=== PATIENT | male | born 1940 | race Caucasian/White ===

== ENCOUNTER → 2024-09-02 12:09 | Outpatient (REF) | payer MEDICARE, SELFPAY | LOC: RAD 12:09 | PROVIDERS: ATTENDING PHYSICIAN Family Medicine | DX: M25.561 Pain in right knee (principal); M25.562 Pain in left knee; G89.29 Other chronic pain; M25.551 Pain in right hip; M25.552 Pain in left hip | CPT/HCPCS: 72100; 73523; 73565 ==

== ENCOUNTER → 2024-09-26 09:08 | Outpatient (REF) | payer MEDICARE, SELFPAY ==
[2024-09-26 10:47] LABS: Erythrocyte Sed Rate 94 mm/hour (0-20)
[2024-09-26 10:50] LABS: ALT (SGPT) 22 U/L (0-50); AST (SGOT) 35 U/L (17-59); Albumin 2.3 g/dl (3.5-5.0); Alkaline Phosphatase 184 U/L (38-126); Blood Urea Nitrogen 24 mg/dl (9-20); Calcium 7.9 mg/dl (8.4-10.2); Carbon Dioxide 29 mmol/L (22-30); Chloride 104 mmol/L (98-107); Glucose 103 mg/dl (70-99); Potassium 4.5 mmol/L (3.5-5.1); Sodium 139 mmol/L (135-145); Total Bilirubin 0.2 mg/dl (0.2-1.3); Total Protein 5.6 g/dl (6.3-8.2); eGFR 54.85
== END ==
LOC: REG 09:08
PROVIDERS: ATTENDING PHYSICIAN Orthopaedic Surgery; FAMILY PHYSICIAN Family Medicine
DX: M35.3 Polymyalgia rheumatica (principal)
CPT/HCPCS: 36415; 80053; 85652

== ENCOUNTER → 2024-10-07 09:09 | Outpatient (REF) | payer MEDICARE, SELFPAY | LOC: HWRAD 09:09 | PROVIDERS: ATTENDING PHYSICIAN Specialist; FAMILY PHYSICIAN Family Medicine | DX: I67.9 Cerebrovascular disease, unspecified (principal); I67.89 Other cerebrovascular disease; R06.02 Shortness of breath | CPT/HCPCS: 71046; 93880 ==

== ENCOUNTER → 2024-10-10 07:37 | Outpatient (REF) | payer MEDICARE, SELFPAY | LOC: RAD 07:37 | PROVIDERS: ATTENDING PHYSICIAN Family Medicine | DX: R09.89 Other specified symptoms and signs involving the circulatory and respiratory systems (principal) | CPT/HCPCS: 93925 ==

== ENCOUNTER → 2024-10-21 14:35 | Outpatient (REF) | payer MEDICARE, SELFPAY | LOC: RCS 14:35 | PROVIDERS: ATTENDING PHYSICIAN Internal Medicine Critical Care Medicine | DX: R06.02 Shortness of breath (principal) | CPT/HCPCS: 93306 ==

== ENCOUNTER 2024-10-31 13:06 | Inpatient (IN) | payer MEDICARE, SELFPAY ==
[2024-10-31] VITALS (12 sets, daily range): BP systolic 120–174; BP diastolic 63–95; BMI 31.1
[2024-10-31 11:18] LABS: % Basophils 0.5 % (0-2); % Eosinophils 6.5 % (0-6); % Immature Granulocytes 0.4 % (0-0.5); % Lymphocytes 18.4 % (20.5-51.1); % Monocytes 9.7 % (1.7-9.3); % Neutrophils 64.5 % (42.2-75.2); Absolute Basophils 0.1 10^3/uL (0-0.2); Absolute Eosinophils 0.6 10^3/uL (0-0.7); Absolute Lymphocytes 1.8 10^3/uL (1.2-3.4); Absolute Monocytes 0.9 10^3/uL (0.1-0.6); Absolute Neutrophils 6.2 10^3/uL (1.4-6.5); Hematocrit 35.6 % (39.0-52.0); Hemoglobin 11.4 g/dL (13.0-18.0); Mean Corpuscular Hgb 25.8 pg (27.0-31.0); Mean Corpuscular Volume 80.5 fL (80.0-94.0); Mean Platelet Volume 8.9 fL (7.4-10.4); Nucleated Red Blood Cells % 0 % (-); Platelet Count 304 10^3/uL (130-400); Red Blood Cell Count 4.42 10^6/uL (4.70-6.10); Red Cell Dist. Width 15.9 % (11.5-14.5); White Blood Cell Count 9.7 10^3/uL (4.8-10.8)
[2024-10-31 11:31] LABS: ALT (SGPT) 17 U/L (0-50); AST (SGOT) 33 U/L (17-59); Albumin 1.9 g/dl (3.5-5.0); Alkaline Phosphatase 138 U/L (38-126); Blood Urea Nitrogen 31 mg/dl (9-20); Calcium 7.6 mg/dl (8.4-10.2); Carbon Dioxide 27 mmol/L (22-30); Chloride 106 mmol/L (98-107); Glucose 141 mg/dl (70-99); Potassium 3.6 mmol/L (3.5-5.1); Sodium 137 mmol/L (135-145); Total Bilirubin 0.1 mg/dl (0.2-1.3); Total Protein 5.1 g/dl (6.3-8.2); eGFR 54.85
[2024-10-31 11:44] LABS: NT-proBNP 4650 pg/ml
--- NOTE | 2024-10-31 11:45 | ED.GENMED ---
History of Present Illness
General
Chief Complaint: Breathing Problem
Source: patient
Exam Limitations: none
Time Seen by Provider: 10/31/24 11:39
History of Present Illness
History of Present Illness:
See MDM
Past History
Past History
ED Past Medical History: CHF and HTN
ED Past Surgical History: None
Social History
Tobacco: Non-smoker
Alcohol: None
Phy Exam
Physical Exam
Physical Exam:
See MDM
Scores
Heart Failure Risk
Heart Failure Risk Score: Yes
History of Stroke or TIA: No
History of intubation for respiratory distress: No
Heart rate on ED arrival >/= 110: No
SaO2 <90% on arrival on room air: Yes
HR >/=110 during 3min walk test (or too ill to perform test): Yes
ECG has acute ischemic changes: No
Urea >/=12mmol/L (BUN 33.6mg/dL): No
Serum CO2>/=35mmol/L: No
Troponin I or T elevated to AR Level (0.4mg/dL): No
NT-proBNP >/=5,000ng/L (5,000pg/ml): No
HF Risk Score: 3
Admission Status: HIGH RISK 15.9% Consider SNF treatment or admission to hospital
Course
Orders/Labs/Results
Orders:
Orders
10/31/24 10:53
Electrocardiogram (*1) Urgent
Reason for Study: Shortness of Breath
10/31/24 10:54
EKG- Treatment ONCE
10/31/24 11:08
Complete Blood Count/With Diff Urgent
Comprehensive Metabolic Panel Urgent
NT-proBNP Urgent
Troponin I Urgent
10/31/24 11:43
Furosemide [Lasix] 40 mg IV NOW STA
CR Chest Portable - 1 View Urgent
Comment:
Reason For Exam: SOB
Reason Study Needs to be Portable: Patient Unstable
Abnormal Lab Results
10/31/24
11:08
RBC 4.42 L 10^6/uL
(4.70-6.10)
Hgb 11.4 L g/dL
(13.0-18.0)
Hct 35.6 L %
(39.0-52.0)
MCH 25.8 L pg
(27.0-31.0)
MCHC 32.0 L g/dL
(33.0-37.0)
RDW 15.9 H %
(11.5-14.5)
Absolute Monos (auto) 0.9 H 10^3/uL
(0.1-0.6)
Lymphocytes % 18.4 L %
(20.5-51.1)
Monocytes % 9.7 H %
(1.7-9.3)
Eosinophils % 6.5 H %
(0-6)
BUN 31 H mg/dl
(9-20)
Glucose 141 H mg/dl
(70-99)
Calcium 7.6 L mg/dl
(8.4-10.2)
Total Bilirubin 0.1 L mg/dl
(0.2-1.3)
Alkaline Phosphatase 138 H U/L
(38-126)
Total Protein 5.1 L g/dl
(6.3-8.2)
Albumin 1.9 L g/dl
(3.5-5.0)
10/31/24 11:08
10/31/24 11:08
Vital Signs
Initial and Last Documented VS:
Initial Vital Signs
Temp Pulse Resp BP Pulse Ox
97.4 F 72 16 159/75 92
10/31/24 10:54 10/31/24 10:54 10/31/24 10:54 10/31/24 10:54 10/31/24 10:54
Last Documented Vital Signs
Temp Pulse Resp BP Pulse Ox
97.4 F 71 32 165/78 94
10/31/24 10:54 10/31/24 11:30 10/31/24 11:30 10/31/24 11:25 10/31/24 11:30
MDM/Problems Addressed
Differential Diagnosis Includes:
HPI and MDM Narrative:
84-year-old male presenting for evaluation of worsening shortness of breath for the past several weeks. He actually had an outpatient chest x-ray which I evaluated and shows pulmonary edema. Because he was on hydrochlorothiazide, Lasix was not
started. Patient now more short of breath and his legs are more swollen. On exam, patient is uncomfortable and tachypneic. He is poor air exchange and requiring supplemental oxygen. Both legs are edematous. Will start IV Lasix and admit
Physical exam
General: Comfortable, conversational dyspnea
HEENT: protecting airway
Neck: appears supple
CV: No evidence of cyanosis. Regular rate and rhythm
Resp: No accessory muscle use. Crackles at bases
Abd: Non-distended
Extremities: No deformities
Neuro: alert
Psych: Normal affect
Skin: Intact
Problems Addressed including Acute and Chronic Conditions affecting care:
1. Pulmonary edema
Acuity: acute
Prognosis: unstable
Details: Will start IV Lasix and admit. Given his significant dyspnea and hypoxia, patient given dose of nitroglycerin as well
Differential Diagnosis (but not limited to): Pulm edema, pneumonia, atelectasis
Testing considered: D-dimer
Drug therapy (if applicable): OTC meds, please see d/c instruction regarding Rx drugs
Amount and/or Complexity of Data Reviewed
Clinical info obtained from: Patient
External data reviewed: Chest x-ray performed few weeks ago shows pulmonary edema
Labs I independently reviewed (but not limited to): Elevated BNP
Radiology: X-ray independently reviewed: Chest x-ray shows pulm edema
Pulse Ox: hypoxic
EKG independently reviewed: Sinus rhythm, normal axis, no STEMI
Glass Ribbon Machine Operator Assistant: Sinus rhythm
Critical Care: The high probability of a clinically significant, sudden or life threatening deterioration of the cardiopulmonary system(s) required my full and direct attention, intervention and personal management. The aggregate critical care time
was 33 minutes. This time is in addition to time spent performing reported procedures but includes the following:
[x] Data Review and interpretation
[x] Patient assessment and monitoring of vital signs
[x] Documentation
[x] Medication orders and management
Risk of Complication:
Social Determinants of health: Good social support
Discussed with other providers: Hospitalist
Escalation of Care includes Admit/Obs: Given the pulmonary edema and hypoxia, will continue IV Lasix and admit
Occasional wrong word or 'sound a like' substitutions may have occurred due to the inherent limitations of voice recognition software. Read the chart carefully and recognize, using context, where substitutions have occurred.
*Critical Care Note
Total Time (30-74mins, 75-104mins- exclusive of procedures): 33 min
ED Attending Note
-
Portions of this chart may have been created with voice recognition software.� Occasional wrong word or��sound alike� substitutions may have occurred due to the inherent limitations of voice recognition software.
Discharge Plan
Departure
Patient Disposition: Admit
Date of Disposition: 10/31/24
Time of Disposition: 11:54
Admit to: Telemetry
Presentation/result/management discussed w/ accepting MD/DO: Hospitalist
Discharge Problem:
Pulmonary edema, Hypoxia
Referrals:
Abad Chung Jr., DO [Family Provider] -
Interventions
Interventions:
*Risk Screen - Suicide Last Done: 10/31/24 10:58
*General Assessment Last Done: 10/31/24 11:30
*Neglect/Abuse Screening Last Done: 10/31/24 10:58
ED- Fall Risk Assessment Last Done: 10/31/24 11:30
*ED COVID-19 Vaccine History Last Done: 10/31/24 10:58
ED- Cardiac Assessment Last Done: 10/31/24 11:30
ED- Pulmonary Assessment Last Done: 10/31/24 11:30
Discharge Date and Time
Print Language: KHMER
[2024-10-31] MEDS: LASIX 40 MG IV ×2 (11:54→16:39)
[2024-10-31] MEDS: NITROSTAT (SUBLINGUAL) 0.4 MG SL (11:56)
--- NOTE | 2024-10-31 11:56 | HPS.HSE ---
Family Physician
-
Family Physician: Abad Chung
Chief Complaint
-
Shortness of breath for 1 week
History of Present Illness
84 years old male came from home. Patient presented to the ER with shortness of breath. Started slowly but progress over the last week. He had visited pulmonary doctor Dr. Larson recently and had multiple tests in the office. No history of
hypoxia although the patient was not sure of what the test showing but seems he was diagnosed with COPD. He quit smoking many years ago. He was not on home oxygen. His bilateral lower extremities were noticeably swollen and red. He was giving a
course of antibiotic and some ointment but did not help. Patient reported very mild cough and no sputum. No fever or chills. No chest pains
Medical History
Past Medical History
Past Medical History: Reports Other (COPD, hypertension,)
Past Surgical History: Reports Other (No recent major surgery)
Social History
Tobacco: Former Smoker
Alcohol: Occasional
Drug: None
Personal:
Living: With Family
Employment: Retired
Family History
Family History: Other (His father had stroke & history of fluid in the lungs)
Allergies / Home Medications
Allergies reflects when Allergies were last updated in [employer].
Home Medications with original date entered in [employer]
Allergy/Medication List:
Allergies
Allergy/AdvReac Type Severity Reaction Status Date / Time
No Known Allergies Allergy Unverified 10/31/24 10:59
Home Medications
amlodipine 5 mg tablet (Norvasc) 5 mg PO DAILY 10/31/24
atenolol 25 mg tablet 25 mg PO DAILY 10/31/24
carboxymethylcellulose 0.5 %-glycerin 0.9 % eye drops (Refresh Optive) 1 drp BOTH EYES TID 10/31/24
cilostazol 100 mg tablet 100 mg PO BID 10/31/24
fluticasone fur. 100 mcg-umeclid 62.5 mcg-vilant 25 mcg inhalat.powder (Trelegy Ellipta) 1 inh inhalation R DAILY 10/31/24
omeprazole 20 mg tablet,delayed release 20 mg PO DAILY 10/31/24
sertraline 25 mg tablet 25 mg PO HS 10/31/24
valsartan 320 mg-hydrochlorothiazide 12.5 mg tablet 1 tab PO DAILY 10/31/24
Review of Systems
-
History Source: Patient
A 12 point ROS was completed and negative except as noted: Yes
Constitutional: Denies Fever or Chills
EENT: Denies Sore Throat
Respiratory: Reports Trouble Breathing
Cardiac: Denies Chest Pain
Abdomen/GI: Denies Abdominal Pain
: Denies Dysuria or Difficulty Voiding
Musculoskeletal: Reports Edema; Denies Joint Pain
Skin: Denies Rash
Neurological: Denies Numbness
Endocrine: Denies Temp Intolerance
Hematologic/Lymphatic: Denies Bruising
Psych: Denies Panic Disorder
Physical Exam
Vital Signs
Vital Signs
Temp Pulse Resp BP Pulse Ox
97.4 F 71 32 165/78 94
10/31/24 10:54 10/31/24 11:30 10/31/24 11:30 10/31/24 11:25 10/31/24 11:30
Physical Exam
General: Conversant and Appears in Distress
HEENT: Moist mucous membranes and Atraumatic
Respiratory: Rales and Decreased Breath Sounds
Cardiac: S1/S2
GI: Soft, Non Tender and Non Distended
Rectal: No Maroon Stools
Genito-urinary: No costovertebral tender
Musculoskeletal: No Cyanosis, Edema, Left Lower Extremity and Edema, Right Lower Extremity
Skin: Warm; No Jaundice
Neuro: AO x 3 and Nonfocal/grossly intact
Psych: Calm and Intact Judgment/Insight
Laboratory Results
-
10/31/24 11:08
10/31/24 11:08
Laboratory Results
Total Bilirubin 0.1 mg/dl (0.2-1.3) L 10/31/24 11:08
AST 33 U/L (17-59) 10/31/24 11:08
ALT 17 U/L (0-50) 10/31/24 11:08
Alkaline Phosphatase 138 U/L (38-126) H 10/31/24 11:08
Troponin I 0.020 ng/ml 10/31/24 11:08
Impression/Plan
-
84 years old male presented with progressive shortness of breath
#Acute respiratory distress//acute hypoxic respiratory failure. Patient presented with SaO2 83% on room air with respiratory distress, shortness of breath and tachypnea
Differential diagnoses include acute on chronic heart failure with preserved ejection fraction, underlying interstitial lung disease/COPD
Elevated proBNP. Negative troponin. EKG normal sinus rhythm with nonspecific T wave abnormality
Admit the patient to the hospital
Start the patient on oxygen therapy, currently patient on 5 to 6 L, possible will need high flow oxygen.
Start the patient on IV diuretic therapy
Monitor renal function, daily weight, input and output chart,
Electrolyte level
Check hemoglobin A1c.
Continue with blood pressure medication but might need to cut back to advance further diuretic therapy and to avoid hypotension if needed
Recent echocardiogram in October 2024 showed LVEF 60 to 65% with diastolic heart dysfunction, moderate mitral regurgitation, mild TR, estimated pulmonary artery pressure of 52 mmHg. Mild concentric LVH.
# History of COPD. Quit smoking many years ago. History of occupational exposure to dust/smoke
Per records, moderate to severe COPD with possible underlying restrictive disease.
Primary battery assembler plastic Dr. Larson.
No significant wheezes heard on exam. No history of significant cough or productive sputum.
Will continue with nebulizer therapy.
Eventual home O2 evaluation
Will discuss with pulmonary doctor.
# Primary hypertension. Patient takes amlodipine, atenolol, Diovan and hydrochlorothiazide.
Currently started on high-dose IV furosemide. Will adjust his home medications as needed and as blood pressure tolerates
# Bilateral lower extremity stasis dermatitis. Consistent with peripheral edema. Will treat with diuretic therapy and monitor weight and progression.
# DVT prophylaxis
Total time spent to see the patient, examine the patient, review data and lab results, discuss the treatment plan with patient, ER doctor, nursing staff around 75 minutes
--- NOTE | 2024-10-31 13:43 | CON.CAR ---
Addendum entered and electronically signed by Tu Herrera MD 10/31/24 15:57:
I saw and examined the patient.
The Physics And Astronomy Professor's note was reviewed and I agree with the note.
Comment:
GEN: No distress, awake, Ox3
HEENT: supple, anicteric, mmm
LUNGS: dec bs at bases
CV: Reg, S1/S2, / syst LSB, S3+
ABD: soft, BS+, NT/ND
EXT: ++ edema
NEURO: Gross non-focal
SKIN: Bilateral erythema lower extremities.
Plan:
84-year-old male with past medical history of hypertension, hyperlipidemia and COPD who presents with progressive edema, shortness of breath, weight gain, and abdominal bloating over the past month. He presented to [facility] with
progressive shortness of breath was found to be in new onset acute heart failure with preserved ejection fraction. proBNP was elevated 4600. He denies any chest pains or palpitations. He does follow with pulmonary for some level of COPD.
I reviewed his recent echo which has a preserved ejection fraction, moderate MR and elevated PA pressures and stage III diastolic dysfunction.
Agree with IV diuresis with IV Lasix.. 40 mg IV twice daily. Follow creatinine.
His blood pressure is elevated. Would continue Diovan, and add carvedilol. We will follow his blood pressure closely. He may need Aldactone as well. With his severe edema I would hold his amlodipine. His legs have marked erythema. Would
consider antibiotics.
Will assess cost for SLG 2 inhibitor.
Hemoglobin 11.4. Check iron studies.
He also has marked hypoalbuminemia.
He will need an eventual Lexiscan nuclear stress test.
Original Note:
Consultation
Consultation Request
Date/Time Consultation Performed: 10/31/24
Requesting Provider: Dr. Pimentel
Performing Provider: Martha Burgos PA-C for Dr. Herrera
Reason for Consultation: CHF
Medical History
-
Chief Complaint: LE edema, SOB
History of Present Illness:
Patient is an 84-year-old male with past medical history of hypertension, hyperlipidemia, GERD, recent diagnosis COPD with former smoking who presents to [facility] emergency room for evaluation of worsening lower extremity edema over the
last several weeks. Also reports dyspnea on exertion with any activity, weight gain, abdominal bloating, orthopnea. Not on supplemental oxygen as an outpatient, however presently requiring 4 L. Was seen by primary care physician, however there
was hesitancy about switching his HCTZ to Lasix as an outpatient. Recent echocardiogram with preserved EF, stage III diastolic dysfunction. With significant edema to waist level. Bilateral lower extremities with significant erythema and some
oozing. Family reports chills but no fevers. proBNP 4650. CXR with evidence of acute CHF. Cardiology consulted for evaluation. no CP.
PMH:
HTN
HLD
GERD
COPD
Hernia
Past Medical History
Past Medical History: Other (in HPI)
Social History
Tobacco: Former Smoker
Personal:
Living: With Family
Employment: Retired
Family History
Family History: Cancer and Other (brain aneurysm, CVA in brothers)
Allergies / Home Medications
Allergy/AdvReac Type Severity Reaction Status Date / Time
No Known Allergies Allergy Unverified 10/31/24 10:59
�Medication �Instructions �Recorded �Confirmed �Type
amlodipine 5 mg tablet (Norvasc) 5 mg PO DAILY 10/31/24 10/31/24 History
atenolol 25 mg tablet 25 mg PO DAILY 10/31/24 10/31/24 History
carboxymethylcellulose 0.5 1 drp BOTH EYES TID 10/31/24 10/31/24 History
%-glycerin 0.9 % eye drops
(Refresh Optive)
cilostazol 100 mg tablet 100 mg PO BID 10/31/24 10/31/24 History
fluticasone fur. 100 mcg-umeclid 1 inh inhalation R DAILY 10/31/24 10/31/24 History
62.5 mcg-vilant 25 mcg
inhalat.powder (Trelegy Ellipta)
omeprazole 20 mg tablet,delayed 20 mg PO DAILY 10/31/24 10/31/24 History
release
sertraline 25 mg tablet 25 mg PO HS 10/31/24 10/31/24 History
valsartan 320 1 tab PO DAILY 10/31/24 10/31/24 History
mg-hydrochlorothiazide 12.5 mg
tablet
Review of Systems
-
History Source: Patient and Family
All other systems: Negative unless noted
Physical Exam
Vital Signs
Temp Pulse Resp BP Pulse Ox
97.4 F 74 26 162/77 97
10/31/24 10:54 10/31/24 13:30 10/31/24 13:30 10/31/24 13:00 10/31/24 13:30
Lab Results
10/31/24 11:08
10/31/24 11:08
Troponin I 0.020 ng/ml 10/31/24 11:08
Utb-B-Fzvvymbfvuy Pept 4650 pg/ml 10/31/24 11:08
Physical Exam
General: No Apparent Distress, Comfortable and Other (on supp O2)
HEENT: Normocephalic, Anicteric and Moist Mucous Membranes
Respiratory: Crackles and Non Labored Respirations
Cardiac: S1/S2 and Regular Rhythm
GI: Soft, Non Tender, Normal Bowel Sounds and Distended
Musculoskeletal: No Clubbing, No Cyanosis and Edema (4+ to level of waist)
Skin: Warm, Dry and Other (erythema of B/L LE to level of knee with blisters, scabs)
Neuro: AO x 3
Impression / Plan
-
Primary Information Systems Technician: none prior to admission, scheduled to see Dr. Elizondo 11/12/24
Assessment:
Presentation with weight gain, LE edema, MUNOZ
Acute HFpEF
Moderate MR
CKD
PAD, abnormal L IVAN, mod to severe claudication
HTN
HLD
GERD
COPD
Hernia
Anemia
Hypoalbuminemia
ECHO 10/21/24: EF 60 to 65%, mild concentric LVH, stage III diastolic dysfunction, moderately dilated atria, mild MAC, moderate MR, mild TR, PAP 52 mmHg, ascending aorta top normal at 3.7 cm
Plan:
-Patient presents with worsening weight gain, lower extremity edema, abdominal bloating, dyspnea on exertion over the last month or so. On HCTZ as an outpatient.
-proBNP 4650. X-ray with evidence of acute CHF
-Legs with significant edema to level of waist bilaterally, erythema of bilateral legs to knees with some scabbing and blisters. Consult wound care. He has noted to have left lower extremity PAD by extremity arterial study earlier this month, and
is planning to see vascular
-Recent echocardiogram with results as above
-Will hold OP HCTZ and placed on IV Lasix 40 mg twice daily. Follow creatinine with diuresis, 1.3 on 10/31
-CHF education
-troponin 0.02. No chest pain. EKG sinus rhythm with NSSTS, no clear acute ischemic abnormalities
-Consider stopping outpatient Norvasc. As outpatient on atenolol 25 mg daily and valsartan as combo pill with HCTZ. Possible poorly controlled hypertension as etiology of heart failure as EF preserved. Consider transitioning atenolol to Coreg for
improved BP control
-Wean supplemental oxygen as able, presently on 4 L nasal cannula
-Noted to be anemic. Will check iron studies in the setting of CHF and consider iron repletion.
-Also with hypoalbuminemia. Consider giving albumin
-Discussed with ER physician. Discussed with patient and family at bedside.
Data Reviewed
-
EKG: Tracing Personally Visualized and interpreted
Radiology: Report Reviewed by me
Medical Tests (Nuc Med, Echo etc): Report Reviewed by me
Labs: Labs Reviewed by me
Old Records: Reviewed
--- NOTE | 2024-10-31 15:18 | CON.PUL ---
Consultation
Consultation Request
Date/Time Consultation Requested: 10/31/2024
Date/Time Consultation Performed: 10/31/2024
Requesting Provider: Dr. Bunn
Performing Provider: Dr. Edwar Rendon
Reason for Consultation: Exertional dyspnea/acute hypoxemic respiratory failure
Medical History
-
History of Present Illness:
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
shortness of breath. Shortness of breath has been worsening slowly over the last week. He was seen by our office recently. He was told that he has COPD. He was noted to have lower extremity swelling and also erythematous. Reports a mild cough
without significant sputum production or hemoptysis. Denies fevers or chills.
He was found to be hypoxemic, chest x-ray suggestive of mild pulmonary edema with possible bilateral pleural effusions.
-
We were consulted for evaluation on 10/31/2024.
-
[facility] records reviewed. Seen in our office 10/18/[address] Larson-for shortness of breath as a new patient. At that time lowest saturation was 90%. No oxygen requirements.
Spirometry showed moderate to severe airflow obstruction with a restrictive defect.
Initially interstitial lung disease was suspected but echocardiogram results demonstrated valvular disease, stage III diastolic dysfunction with increased filling pressures and he was referred to cardiology.
Serology for ILD was also sent.
He was started on Trelegy as a trial as well.
-
Past Medical History
Past Medical History: HTN
Social History
Tobacco: Former Smoker ([id number] history quit in the )
Alcohol: Occasional
Drug: None
Personal:
Living: With Family
Employment: Retired
Family History
Family History: Reviewed & Not Pertinent
Allergies / Home Medications
Allergies
Allergy/AdvReac Type Severity Reaction Status Date / Time
No Known Allergies Allergy Unverified 10/31/24 10:59
Home Medications
�Medication �Instructions �Recorded �Confirmed �Last Taken �Type
amlodipine 5 mg tablet (Norvasc) 5 mg PO DAILY 10/31/24 10/31/24 10/30/24 History
atenolol 25 mg tablet 25 mg PO DAILY 10/31/24 10/31/24 10/30/24 History
carboxymethylcellulose 0.5 1 drp BOTH EYES TID 10/31/24 10/31/24 10/30/24 History
%-glycerin 0.9 % eye drops
(Refresh Optive)
cilostazol 100 mg tablet 100 mg PO BID 10/31/24 10/31/24 10/30/24 History
fluticasone fur. 100 mcg-umeclid 1 inh inhalation R DAILY 10/31/24 10/31/24 10/30/24 History
62.5 mcg-vilant 25 mcg
inhalat.powder (Trelegy Ellipta)
omeprazole 20 mg tablet,delayed 20 mg PO DAILY 10/31/24 10/31/24 10/31/24 History
release
sertraline 25 mg tablet 25 mg PO HS 10/31/24 10/31/24 10/30/24 History
valsartan 320 1 tab PO DAILY 10/31/24 10/31/24 10/31/24 History
mg-hydrochlorothiazide 12.5 mg
tablet
Review of Systems
-
History Source: Patient
All other systems: Negative unless noted
Vitals / Labs / Diagnostic Testing
Vital Signs
Temp Pulse Resp BP Pulse Ox
97.4 F 72 21 156/74 95
10/31/24 10:54 10/31/24 14:45 10/31/24 14:45 10/31/24 14:00 10/31/24 14:45
Lab Data
10/31/24 11:08
10/31/24 11:08
Diagnostic Testing:
Physical Exam
-
HEENT: Normocephalic
Cardiovascular: S1/S2 and Peripheral Edema (3+ bilaterally-stasis dermatitis)
Respiratory: Wheeze (n), Rales (bases) and Non-Labored Respirations
GI: Soft and Non Distended
Neurology: Awake, AO x 3 and No Motor Deficits
Skin: Warm
General: Comfortable
Assessment
-
84-year-old man with past medical history noted, admitted with progressive shortness of breath. Found to be hypoxemic which is new for him. Abnormal chest x-ray suggestive of heart failure. Also recently diagnosed with COPD and he is a former
smoker. We were consulted on 10/31/2024 for evaluation.
Acute hypoxemic respiratory failure pulse ox 83% on room air-progressive shortness of breath. Requiring 3-5 L supplemental oxygen new for him
Suggest suspect mainly driven by t acute heart failure with preserved ejection fraction -proBNP 4650.
Chest x-ray10/31/2024: Minimal bilateral pleural effusions, significant pulmonary vascular congestion.
Negative troponin
Echocardiogram 10/21/2024: Normal LVEF. No regional wall motion abnormality. Mild LVH. Stage III diastolic dysfunction, increased filling pressures. Normal RV size and function. Moderately dilated atrium. Moderate MR. Mild TR. Pulmonary
artery pressure 52 mmHg. No pericardial effusion.
Bilateral lower extremity Edema with stasis dermatitis
Conditions present prior admission:
COPD
Hypertension
Former smoker quit in [id number]-year history
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
Left lower extremity peripheral arterial disease by recent duplex ultrasound
Assessment and plan:
Clinical picture suggest acute onset pulmonary edema, recently seen in the pulmonary office with crackles, lower extremity swelling, echocardiogram was performed and demonstrated diastolic dysfunction with increased filling pressures.
At that time on mid October no oxygen requirements.
-
Symptoms mainly driven by pulmonary vascular congestion from heart failure with preserved ejection fraction-echocardiogram was noted to have suggestion of increased filling pressures-proBNP significantly elevated
I agree with IV diuresis
Cardiology has been consulted, optimizing cardiac management
Low-sodium
Heart failure education
-
Moderate to severe COPD by spirometry: Former smoker quit many years ago. Not on exacerbation.
Recently placed on Trelegy by Dr. Larson-not significantly bronchospastic: Okay to use DuoNebs [id number]
Hold inhalers systemic corticosteroids
No indication for antibiotics.
-
Continue oxygen supplementation hopefully will improve with diuresis
-
There was concern for possible underlying interstitial lung disease in the outpatient setting.
If there is no complete clearance after proper diuresis then a CT of the chest will be recommended.
-
Lower extremity edema with stasis dermatitis
Check UA to rule out proteinuria
Patient is hypovolemic unclear reasons-defer to primary team.
-
DVT prophylaxis heparin subcu.
-
Will continue to follow.
--- NOTE | 2024-10-31 16:00 | WOUNDNOTE ---
WO RN note: Patient admitted with SOB, worsening over the last week.
See H&P for complete history.
PMH: COPD
Wound Location and type/assessment: Patient admitted with venous stasis changes and venous stasis dermatitis appearing skin to bilateral LE. + palpable pulse +2 LE edema. Skin on LE is very dry. Patient reports some draining from blisters when at
home. No draining or open wound noted at time of assessment. Patient also recently saw meter setter for rash on back and thighs and was given steroid cream for both back and legs. Patient reports the steroid cream did not help improve symptoms. He
reports some itching on his lower legs but denies itching on back. He does not use compression at home. Heels and sacrum are intact.
Appetite: States fair appetite
Pressure redistribution devices in place: Versa Care Air, able to turn self in bed.
Plan: Will try Hydrophor to dry LE. Patient does not feel like he can tolerate compression at this time but would be agreeable when symptoms improve. TT Dr. Bunn with update and spoke to Lesley PATINO.
Updated care plan and will follow as needed.
Note to case management of equipment requested for discharge:
Recommend follow up at wound care center upon discharge.
[2024-10-31 16:14] LABS: Iron 29 ug/dl (49-181)
[2024-10-31 16:24] LABS: Percent Saturation 16 % (20-50); Total Iron Binding Capacity 173 ug/dl (261-462)
[2024-10-31] MEDS: DUONEB 3 ML INH ×2 (16:28→19:20)
--- NOTE | 2024-10-31 16:35 | WOUNDNOTE ---
POSTERIOR VIEW OF LOWER LEGS AND THIGHS
--- NOTE | 2024-10-31 16:36 | WOUNDNOTE ---
BILATERAL LOWER LEG ANTERIOR VIEW
[2024-10-31] MEDS: HYDROPHOR 1 APPLIC TOPICAL (17:17)
[2024-10-31 17:42] LABS: Urine Albumin 2+ (Neg - Trace); Urine Bilirubin Negative (Negative); Urine Character Clear (Clear); Urine Color Straw; Urine Glucose Negative (Negative); Urine Ketone Negative (Negative); Urine Leukocyte Negative (Negative); Urine Nitrite Negative (Negative); Urine Occult Blood 3+ (Negative); Urine Urobilinogen Negative (Neg - 1+)
[2024-10-31 17:48] LABS: Urine Squamous Cell 0-2 /LPF (Few)
[2024-10-31 17:49] LABS: Urine White Cell 0-2 /HPF (0-5)
[2024-10-31 17:50] LABS: Urine Bacteria Few (Negative)
[2024-10-31 17:51] LABS: Urine Yeast Few (Negative)
[2024-10-31] MEDS: HEPARIN 5000 UNITS SC (21:27)
[2024-10-31] MEDS: ZOLOFT 25 MG PO (21:27)
[2024-10-31] MEDS: COREG 6.25 MG PO (21:27)
[2024-10-31] MEDS: PLETAL 100 MG PO (21:27)
[2024-11-01] VITALS (10 sets, daily range): BP systolic 133–172; BP diastolic 69–85; PULSE 75–82; O2SAT 90–91; BMI 28.9
--- NOTE | 2024-11-01 04:45 | PTCARENOTE ---
Addendum entered by Elmo Lundy RN 11/01/24 05:24:
BP at time of IV Lasix admin is 148/69, HR 75.
Original Note:
MARGOT Sandoval notified that patient is having difficulty breathing, RR are 24, and he is 93% on 5L NC. MARGOT Sandoval ordered 1x IV Lasix 40mg now as well as PRN DuoNeb.
[2024-11-01] MEDS: LASIX 40 MG IV ×2 (04:49→17:52)
[2024-11-01] MEDS: DUONEB 3 ML INH ×5 (05:00→19:27)
--- NOTE | 2024-11-01 05:31 | W.PN.UPDATE ---
Update Note
Progress Note Update
c/o hard time breathing at 0430. up to 5 L NC. RR 24. Added duoneb and lasix 40 mg IV with relief.
--- NOTE | 2024-11-01 08:20 | W.PN.CARDCBS ---
Addendum entered and electronically signed by Kae Benitez DO 11/01/24 13:05:
I saw and examined the patient.
The Economics Faculty Member's note was reviewed and I agree with the note.
Comment: Patient seen and examined with at bedside. Overnight events reviewed. Early this morning had worsening respiratory distress and increased O2 requirements that is now improved with DuoNeb and additional Lasix. CT of the chest
reviewed with patient and family. No chest pain or pressure. believes leg edema looks better since admission.
GEN: Sitting out of bed to chair with nasal cannula O2 and DuoNeb. AAO x 3
HEENT: mmm
LUNGS: Bronchovesicular breath sounds with crackles bilaterally
CV: Reg, S1/S2, 2/6 SM
EXT: +++ Lower extremity bilateral edema with erythema serous filled cyst, scabs and oozing
NEURO: Gross non-focal
ECHO 10/21/24: EF 60 to 65%, mild concentric LVH, stage III diastolic dysfunction, moderately dilated atria, mild MAC, moderate MR, mild TR, PAP 52 mmHg, ascending aorta top normal at 3.[address] of the chest without contrast 11/01/2024: Small bilateral pleural effusions. Reticular interstitial thickening bilaterally and extensive groundglass opacity bilaterally most pronounced at lung bases and within the right upper lobe. Mild
coronary artery calcification. Multiple calcified mediastinal and hilar lymph nodes.
Carotid duplex 10/07/2024: Plaque identified in the right ICA with 50 to 69% stenosis. Plaque identified in the left ICA with less than 50% stenosis
Lower extremity arterial duplex 10/10/2024: Right ankle-brachial index and toe brachial index within the normal range at 1.09 and 0.91. No signs of significant right-sided inflow disease or focal flow-limiting arterial stenosis. Left ankle-brachial
index in the moderate to severe claudication range at 0.67. Left toe brachial index is slightly diminished at 0.66. Left common femoral waveform is biphasic, but dampened. There is diffuse dampening of the left lower extremity waveforms without
high-grade focal stenosis, findings most consistent with inflow disease.
Twelve-lead EKG 10/31/2024: Normal sinus rhythm with sinus arrhythmia and nonspecific T wave abnormality.
Plan:
Acute hypoxic respiratory failure and volume overload consistent with heart failure preserved ejection fraction
-2D echocardiogram with preserved LV systolic function with grade 3 diastolic dysfunction and moderate mitral regurgitation. Estimated pulmonary artery pressure is 52 mmHg.
-Initial proBNP 4650
-Negative troponin
-Continue diuresis efforts with Lasix 40 mg IV twice daily
-Monitor I's/O's, daily weights.
-Monitor lab work including renal function and electrolytes. Keep K greater than 4, mag greater than 2
-Better blood pressure control; continue valsartan but reduce dose to 160 mg daily. Add hydralazine with goal of eventual discontinuation of amlodipine given edema. Continue carvedilol started this admission and lieu of outpatient atenolol.
Outpatient hydrochlorothiazide discontinued
-Case management consulted for cost of SGLT2 inhibitor
-Heart failure education including dietary salt/fluid restriction-consult placed
-Outpatient ischemic evaluation
COPD with prior tobacco dependence and possible ILD/pulmonary hypertension on echo
-CT of the chest this morning reviewed with patient and family members.
-Pulmonary consulted with outpatient follow-up to be arranged
-Recommend outpatient sleep study
Renal insufficiency with creatinine 1.3-1.4
-Monitor with diuresis
-+2 noted on UA
-He has an outpatient nephrology appointment November [address] Pedro
Known PAD/carotid artery disease with recent carotid duplex and lower extremity arterial duplex this month as an outpatient
-Recommend outpatient vascular follow-up
-Aggressive risk factor reduction
-Continue outpatient Pletal.
-Check lipid profile; not on statin as an outpatient with no reported allergy
Type 2 diabetes mellitus with hemoglobin A1c 6.5%, new diagnosis
-Defer to medical service
-Case management consulted to look into SGLT2 inhibitor
-Goal normoglycemia
-Will have CM assess cost of SGLT2 inhibitor.
Leg wounds/venous stasis changes�wound care has been consulted
Updated family over the phone. Will follow with you.
Original Note:
Today's Communication / Plan
-
Continue diuresis w/ IV lasix 40mg BID
Follow creat
Start hydralazine for BP control.
Decrease valsartan to 160mg daily
Restart Coreg this PM.
Impression / Plan
-
Primary Family Day Carer: none prior to admission, scheduled to see Dr. Elizondo 11/12/24
Assessment:
Presentation with weight gain, LE edema, MUNOZ
Acute HFpEF
Moderate MR
CKD
PAD, abnormal L IVAN, mod to severe claudication
HTN
HLD
GERD
COPD
Hernia
Anemia
Hypoalbuminemia
ECHO 10/21/24: EF 60 to 65%, mild concentric LVH, stage III diastolic dysfunction, moderately dilated atria, mild MAC, moderate MR, mild TR, PAP 52 mmHg, ascending aorta top normal at 3.7 cm
Plan:
-Presented with worsening weight gain, LE edema, and MUNOZ. Admitted with acute HFpEF. ProBNP 4650. On HCTZ as OP.
-Had increased WOB overnight. Given duoneb and additional 40mg IV lasix at 0430.
-Diuresing with IV lasix 40mg BID. Weight down to 184lbs 11/01. Weight in ER 198 lbs if accurate.
-Continue to follow daily weights, I&Os. Creat 1.4 11/01. Still significantly volume overloaded.
-CHF education.
-Echo 10/21 with preserved EF and moderate MR as noted above.
-Wound care consulted for LE edema with scabbing and blisters. Noted to have LE PAD by extremity arterial study earlier this month.
-BP elevated on admission. Atenolol transitioned to carvedilol 6.25mg BID. Dose held this AM due to concern for wheezing. Will resume this PM.
-Needs better BP control. Amlodipine restarted in AM 11/01, however is not ideal medication w/ edema. Will start hydralazine w/ goal of d/c amlodipine.
-Valsartan held this AM w/ creat 1.4. Will restart at lower dose to allow for diuresis.
-Will have CM assess cost of SGLT2 inhibtior.
-Wean O2 as able. Currently on 4L NC
Progress Note - Family Day Carer
Subjective
Date of Service: November 01, 2024
Continues w/ some SOB and LE edema
Objective
Labs:
10/31/24 11:08
Labs
Hgb 11.4 g/dL (13.0-18.0) L 10/31/24 11:08
Hct 35.6 % (39.0-52.0) L 10/31/24 11:08
Plt Count 304 10^3/uL (130-400) 10/31/24 11:08
Sodium 137 mmol/L (135-145) 10/31/24 11:08
Potassium 3.6 mmol/L (3.5-5.1) 10/31/24 11:08
BUN 31 mg/dl (9-20) H 10/31/24 11:08
Creatinine 1.3 mg/dL (0.7-1.3) 10/31/24 11:08
Glucose 141 mg/dl (70-99) H 10/31/24 11:08
Troponins
10/31/24
11:08
Troponin I 0.020
Vital Signs and I&O:
Vital Signs
Temp Pulse Resp BP Pulse Ox
97.5 F 77 18 148/69 99
11/01/24 03:04 11/01/24 07:32 11/01/24 07:32 11/01/24 04:49 11/01/24 07:32
Vital Signs
Temp Pulse Resp BP Pulse Ox
97.5 F 77 18 148/69 99
11/01/24 03:04 11/01/24 07:32 11/01/24 07:32 11/01/24 04:49 11/01/24 07:32
Intake & Output
10/30/24 10/31/24 11/01/24 11/02/24
06:59 06:59 06:59 06:59
Intake Total 480 / 480 240 / 240
Output Total 1925 / 1925
Balance -1445 / -1445 240 / 240
Physical Exam
Physical Exam
GEN: No distress, awake, alert, oriented x3
HEENT: supple, anicteric, mmm
LUNGS: crackles b/l, no wheezes
CV: Reg, S1/S2, no murmur
EXT: No clubbing, ro cyanosis. +2 edema b/l LE
NEURO: Gross non-focal
SKIN: Warm, dry. Erythema of b/l LE to knees w/ blisters, scabs
[2024-11-01] MEDS: PULMICORT 0.5 MG INH ×2 (08:23→19:27)
--- NOTE | 2024-11-01 08:36 | WOUNDNOTE ---
WO RN note: Patient admitted with SOB, worsening over the last week.
See H&P for complete history.
PMH: COPD
Wound Location and type/assessment: Patient admitted with venous stasis changes and venous stasis dermatitis appearing skin to bilateral LE. + palpable pulse +2 LE edema. Skin on LE is very dry. Patient reports some draining from blisters when at
home. No draining or open wound noted at time of assessment. Patient also recently saw superintendent building for rash on back and thighs and was given steroid cream for both back and legs. Patient reports the steroid cream did not help improve symptoms. He
reports some itching on his lower legs but denies itching on back. He does not use compression at home. Heels and sacrum are intact.
Appetite: States fair appetite
Pressure redistribution devices in place: Versa Care Air, able to turn self in bed.
Plan: Will try Hydrophor to dry LE. Patient does not feel like he can tolerate compression at this time but would be agreeable when symptoms improve. TT Dr. Bunn with update and spoke to Lesley PATINO.
Updated care plan and will follow as needed.
Note to case management of equipment requested for discharge:
Recommend follow up at wound care center upon discharge.
[2024-11-01 09:06] LABS: Blood Urea Nitrogen 31 mg/dl (9-20); Calcium 7.6 mg/dl (8.4-10.2); Carbon Dioxide 32 mmol/L (22-30); Chloride 105 mmol/L (98-107); Estimated Creatinine Clearance 38 ml/min; Glucose 93 mg/dl (70-99); Sodium 138 mmol/L (135-145); eGFR 50.18
[2024-11-01 09:13] LABS: Potassium 3.7 mmol/L (3.5-5.1)
--- NOTE | 2024-11-01 09:56 | W.PN.HOSP.TC ---
Today's Communication/Plan
-
Worsening breathing status
Holding Coreg for possible bronchospasm ( less likely) , starting Steroid therapy and Pulmicort
Order CT chest due to X ray findings
Hold AM Lasix as pt received an extra dose earlier today
Check procalcitonin
Hold Diovan due to rising creatinine
Resume amlodipine
Add PRN Hydralazine
Assessment / Plan
Assessment / Plan
Physical Exam
General: Conversant and Appears in Distress
HEENT: Moist mucous membranes and Atraumatic
Respiratory: Rales and Decreased Breath Sounds
Cardiac: S1/S2
GI: Soft, Non Tender and Non Distended
Rectal: No Maroon Stools
Genito-urinary: No costovertebral tender
Musculoskeletal: No Cyanosis, Edema, Left Lower Extremity and Edema, Right Lower Extremity
Skin: Warm; No Jaundice
Neuro: AO x 3 and Nonfocal/grossly intact
Psych: Calm and Intact Judgment/Insight
84 years old male presented with progressive shortness of breath
#Acute respiratory distress//acute hypoxic respiratory failure. Due to Acute on chronic heart failure with preserved ejection fraction + COPD exacerbation
c/w IV Lasix but hold AM dose as he received one over night
He lost weight
Coreg was added but hold for now until lung wheezes start to subside
Continue with blood pressure medication but might need to cut back to advance further diuretic therapy and to avoid hypotension if needed
Recent echocardiogram in October 2024 showed LVEF 60 to 65% with diastolic heart dysfunction, moderate mitral regurgitation, mild TR, estimated pulmonary artery pressure of 52 mmHg. Mild concentric LVH.
Appreciate cardiology input
# Acute COPD exacerbation
Possibly triggered by heart failure event or ? side effect from new medicine Coreg although he was on Atenolol at home
Will do IV Methylprednisone 40 mg BID
Add INH Pulmicort
c/w Duo Neb QID
repeat chest x ray : Concerning, will do CT chest
Check Procalcitonin ( no fever, no leukocytosis on admission). Check CBC today
Hx of moderate to severe COPD
Primary family member caretaker Dr. Larson.
Appreciate pulmonary help
# Primary hypertension. Patient takes amlodipine, atenolol, Diovan and hydrochlorothiazide.
Uncontrolled Systolic BP this morning
Currently started on high-dose IV furosemide. c/w Amlodipine
Hold Diovan due to rising creatinine
Add PRN hydralazine
# Bilateral lower extremity stasis dermatitis. Consistent with peripheral edema. Treat underlying edema
# Acute kidney injury , suspect underlying CKD stage IIIA
We do not have baseline in last few months. Creatinine was 1.3 in September 2024.
# DVT prophylaxis
Total time spent to see the patient, examine the patient, review data and lab results, discuss the treatment plan with patient, consultants, nursing staff around 55 minutes
Anticipated Discharge: > 48 hours
Subjective/Interval History
-
Date of Service: November 01, 2024
feels sob
no chest pain
Objective Data
-
Labs:
Laboratory Results
11/01/24
08:14
Sodium 138
Potassium 3.7
Chloride 105
Carbon Dioxide 32 H
BUN 31 H
Creatinine 1.4 H
Glucose 93
Calcium 7.6 L
Vital Signs:
Vital Signs
Temp Pulse Resp BP Pulse Ox
97.7 F 74 24 172/85 94
11/01/24 07:30 11/01/24 08:26 11/01/24 08:26 11/01/24 07:30 11/01/24 08:26
I&O
10/31/24 11/01/24 11/02/24
06:59 06:59 06:59
Intake Total 480 / 480 240 / 240
Output Total 1925 / 1925
Balance -1445 / -1445 240 / 240
[2024-11-01] MEDS: COREG PO (10:31)
[2024-11-01] MEDS: HEPARIN 5000 UNITS SC ×2 (10:32→21:41)
[2024-11-01] MEDS: LASIX IV (10:35)
[2024-11-01] MEDS: PROTONIX 40 MG PO (10:36)
[2024-11-01] MEDS: SOLU-MEDROL PF 40 MG IV ×2 (10:36→21:45)
[2024-11-01] MEDS: PLETAL 100 MG PO ×2 (10:36→21:41)
[2024-11-01] MEDS: NORVASC 5 MG PO (10:37)
[2024-11-01 10:48] LABS: Hemoglobin 10.9 g/dL (13.0-18.0); Mean Corp Hgb Conc. 31.1 g/dL (33.0-37.0); Mean Corpuscular Hgb 25.8 pg (27.0-31.0); Mean Corpuscular Volume 82.7 fL (80.0-94.0); Mean Platelet Volume 9.4 fL (7.4-10.4); Platelet Count 279 10^3/uL (130-400); Red Blood Cell Count 4.23 10^6/uL (4.70-6.10); Red Cell Dist. Width 15.9 % (11.5-14.5); White Blood Cell Count 8.7 10^3/uL (4.8-10.8)
[2024-11-01 10:49] LABS: Glycohemoglobin (HgbA1c) 6.5 % (4.0-5.6)
--- NOTE | 2024-11-01 10:49 | CM ---
Addendum entered by Holly Moore 11/01/24 15:55:
CM received consult for cost of Jardiance/Farxiga 10 mg once daily. Patient seen bedside with , reports he is unsure what prescription plan he has- daughter will be in to visit patient and will provide information. CM offered to call daughter,
patient reports daughter is working and will not be able to respond. Call placed to patients pharmacy to obtain prescription plan information, left VM.
Original Note:
CM reviewed chart, patient seen bedside with and two sons, initial assessment completed. Patient resides with his in a private home, first floor set up, two steps to enter. Patient does not use any DME for ambulation, currently on oxygen,
is not on home O2. Patient denies VN or SNF history. Patient confirms PCP Abad Denise, pharmacy [facility], confirms prescription coverage. Patient denies insecurities at home, reports he has good support from his family. CM
will continue to follow for all discharge planning needs, will watch for PT needs and home O2 needs.
Plan; home with family, watch for VN needs, home O2 needs.
[2024-11-01 11:23] LABS: Procalcitonin 0.12 ng/ml (0.0-0.25)
[2024-11-01 13:31] LABS: HDL Cholesterol 28 mg/dl; LDL Cholesterol, Calculated 113 mg/dl; Total Cholesterol 166 mg/dl (50-199); Triglyceride 125 mg/dl (10-149); Very Low Density Lipoprotein 25 mg/dl (0-30)
[2024-11-01] MEDS: DIOVAN 160 MG PO (14:13)
[2024-11-01] MEDS: APRESOLINE 25 MG PO ×2 (14:14→21:41)
[2024-11-01] MEDS: HYDROPHOR 1 APPLIC TOPICAL (14:15)
--- NOTE | 2024-11-01 14:40 | W.PN.PUL3 ---
Today's Communication / Plan
-
IV corticosteroids started 11/01/2024
Pulmicort/DuoNebs continue while in the hospital
IV diuresis
Follow electrolytes and creatinine.
Oxygen supplementation currently on 5 L
Eventual repeat imaging to rule out interstitial lung disease/pulmonary fibrosis.
Assessment
-
84-year-old man with past medical history noted, admitted with progressive shortness of breath. Found to be hypoxemic which is new for him. Abnormal chest x-ray suggestive of heart failure. Also recently diagnosed with COPD and he is a former
smoker. We were consulted on 10/31/2024 for evaluation.
Acute hypoxemic respiratory failure pulse ox 83% on room air-progressive shortness of breath. Requiring 3-5 L supplemental oxygen new for him
Suggest suspect mainly driven by t acute heart failure with preserved ejection fraction -proBNP 4650.
Chest x-ray10/31/2024: Minimal bilateral pleural effusions, significant pulmonary vascular congestion.
Negative troponin
Echocardiogram 10/21/2024: Normal LVEF. No regional wall motion abnormality. Mild LVH. Stage III diastolic dysfunction, increased filling pressures. Normal RV size and function. Moderately dilated atrium. Moderate MR. Mild TR. Pulmonary
artery pressure 52 mmHg. No pericardial effusion.
Bilateral lower extremity Edema with stasis dermatitis
Conditions present prior admission:
COPD
Hypertension
Former smoker quit in [id number]-year history
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
Left lower extremity peripheral arterial disease by recent duplex ultrasound
Assessment and plan:
Clinical picture suggest acute onset pulmonary edema, recently seen in the pulmonary office with crackles, lower extremity swelling, echocardiogram was performed and demonstrated diastolic dysfunction with increased filling pressures.
At that time on mid October no oxygen requirements.
Earlier in the morning 11/01/2024: Increase shortness of breath and also bronchospastic.
Discussed with Dr. Bunn -diuresis given, steroids started.
-
Symptoms mainly driven by pulmonary vascular congestion from heart failure with preserved ejection fraction-echocardiogram was noted to have suggestion of increased filling pressures-proBNP significantly elevated
CT chest 11/01/2024: Reviewed small bilateral pleural effusions, increased bilateral reticular interstitial thickening with patchy groundglass opacity. Suspect heart failure but cannot rule out underlying interstitial lung disease such as pulmonary
fibrosis/IPF.
Continue IV diuresis-creatinine is rising.
Discussed with cardiology: Been optimized from the cardiac perspective.
Heart failure education
-
Moderate to severe COPD by spirometry: Former smoker quit many years ago. Not on exacerbation.
Recently placed on Trelegy by Dr. Larson-not significantly bronchospastic on admission. Restarted inhalers upon discharge.
Continue DuoNebs [id number]
Pulmicort started 11/01/2024 Solu-Medrol started
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 Unclear whether an acute exacerbation versus cardiac wheezing.
No indication for antibiotics.
-
Continue oxygen supplementation hopefully will improve with diuresis.
Currently wearing 5 L
-
There was concern for possible underlying interstitial lung disease in the outpatient setting.
CT chest as above noted. Will repeat once he is able to diuresis in the future. In about 6 to 8 weeks.
-
Lower extremity edema with stasis dermatitis
Patient does have hyperammonemia as well as proteinuria on UA.
Defer to primary for further evaluation
-
DVT prophylaxis heparin subcu.
-
Will continue to follow.
-
Follow-up with Dr. Larson after DC.
Subjective Data
-
Date of Service:
Date of Service: November 01, 2024
Chief Complaint: Pulmonary Follow Up (Acute hypoxemic respiratory failure/COPD/heart failure)
Subjective:
This morning with acute episode of shortness of breath, received diuresis.
Denies hemoptysis
Denies purulent sputum production
Feels better now
Review of Systems
Cardiopulmonary: Dyspnea, Dyspnea on Exertion and Cough
GI: Abdominal Pain (n) and Nausea (n)
Objective Data
Data Reviewed
Vital Signs / I&O / Oxygen:
Vital Signs
Temp Pulse Resp BP Pulse Ox
97.3 F 71 24 171/84 97
11/01/24 11:30 11/01/24 14:13 11/01/24 11:33 11/01/24 14:13 11/01/24 11:33
Intake and Output
10/31/24 11/01/24 11/02/24
06:59 06:59 06:59
Intake Total 480 / 480 240 / 240
Output Total 1925 / 1925
Balance -1445 / -1445 240 / 240
SaO2 97
Nasal Cannula flow liters per 5
minute
Physical Exam
General: Comfortable
HEENT: Normocephalic
Cardiovascular: S1-S2 and Regular Rhythm
Respiratory: Wheeze (Forced expiratory) and Crackles
GI: Soft and Non Distended
Neurology: Awake, AO x 3 and No Motor Deficits
Skin: Warm and Other (Chronic lower extremity venous stasis)
Labs/Micro/Reports
Lab Data
11/01/24 10:23
11/01/24 08:14
[2024-11-01 18:08] LABS: Blood Urea Nitrogen 33 mg/dl (9-20); Calcium 7.6 mg/dl (8.4-10.2); Carbon Dioxide 30 mmol/L (22-30); Chloride 101 mmol/L (98-107); Estimated Creatinine Clearance 41 ml/min; Glucose 233 mg/dl (70-99); Magnesium 1.9 mg/dl (1.6-2.3); Potassium 3.8 mmol/L (3.5-5.1); Sodium 134 mmol/L (135-145); eGFR 54.85
--- NOTE | 2024-11-01 19:30 | PTCARENOTE ---
Pt had a 40 beat run of V'tach at around 17:30. Dr maria. Ordered labs which were drawn and sent.
[2024-11-01] MEDS: COREG 6.25 MG PO (21:41)
[2024-11-01] MEDS: ZOLOFT 25 MG PO (21:45)
[2024-11-02 03:00] VITALS: BP 137/69
[2024-11-02 05:26] LABS: Protein/creatinine Ratio 7.6; Urine Protein 489 mg/dl
[2024-11-02 06:00] VITALS: BMI 28.9
[2024-11-02 07:45] VITALS: BP 135/71
[2024-11-02] MEDS: PULMICORT 0.5 MG INH ×2 (07:59→20:07)
[2024-11-02] MEDS: DUONEB 3 ML INH ×4 (07:59→20:07)
--- NOTE | 2024-11-02 08:10 | W.PN.CARDCBS ---
Addendum entered and electronically signed by Genaro Cartwright MD 11/02/24 10:59:
Patient seen and examined
Agree with note and assessment
Agree with plan
Physical Exam
Telemetry reviewed with short runs of paroxysmal atrial tachycardia and then overall sinus rhythm
General: no apparent distress, not acutely ill
Neck: supple. no meningeal signs. normal psoterior pharynx
Heart: s1/s2 regular rate and rhythm, no murmur. equal radial pulses.
Lungs: no acute respiratory distress. clear bilaterally
Abdomen: normal bowel sounds. not tender. no CVAT
Neuro: alert and oriented. no focal neurological deficits
Skin: 1+ extremity edema to mid calf
Psychiatric: well kept. interactive and cooperative
Extremities: no edema. no calf tenderness. negative homans. good distal pulses
Assessment:
Presentation with weight gain, LE edema, MUNOZ
Acute HFpEF
Atrial tachycardia
Moderate MR
CKD
PAD, abnormal L IVAN, mod to severe claudication
HTN
HLD
GERD
COPD
Hernia
Anemia
Hypoalbuminemia
ECHO 10/21/24: EF 60 to 65%, mild concentric LVH, stage III diastolic dysfunction, moderately dilated atria, mild MAC, moderate MR, mild TR, PAP 52 mmHg, ascending aorta top normal at 3.7 cm
Plan:
-Diuresing with IV lasix 40mg BID. Weight unchanged overnight if accurate at 184lbs. Down from 198 lbs in ER on arrival. Still appears volume overloaded on exam and will follow daily creatinine but also continue with IV Lasix on 1227. We will see
what his 11/03 creatinine looks like and make decisions based upon his weight and clinical status whether we change to p.o.'s in the next 24 to 48 hours.
-Continue to follow daily weights, I&Os. Creat 1.4 11/01 and up to 1.5 11/02. Still volume overloaded, however will need to follow renal function closely.
-CHF education.
-Echo 10/21 with preserved EF and moderate MR as noted above.
-Wound care consulted for LE edema with scabbing and blisters. Noted to have LE PAD by extremity arterial study earlier this month.
-BP has been elevated. Atenolol transitioned to carvedilol 6.25mg BID. This will also be useful for his paroxysmal atrial tachycardia.
-Amlodipine restarted in AM 11/01, however is not ideal medication w/ edema. New to Hydralazine 25mg BID this admission.
-Continue valsartan at lower dose 160mg daily. Will have to keep a close eye in his creatinine.
-As able, would d/c amlodipine and increase coreg and/or hydralazine for better BP control.
-Will have CM assess cost of SGLT2 inhibitor.
-Reviewed telemetry and runs of atrial tachycardia noted. Continue to follow for now. Asymptomatic. No h/o atrial arrhythmia.
-Wean O2 as able.
Original Note:
Today's Communication / Plan
-
Continue diuresis
Await AM labs
Continue hydralazine, valsartan, and coreg for BP control
Follow on tele. May consider monitor at discharge
Impression / Plan
-
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 Elizondo 11/12/24
Assessment:
Presentation with weight gain, LE edema, MUNOZ
Acute HFpEF
Atrial tachycardia
Moderate MR
CKD
PAD, abnormal L IVAN, mod to severe claudication
HTN
HLD
GERD
COPD
Hernia
Anemia
Hypoalbuminemia
ECHO 10/21/24: EF 60 to 65%, mild concentric LVH, stage III diastolic dysfunction, moderately dilated atria, mild MAC, moderate MR, mild TR, PAP 52 mmHg, ascending aorta top normal at 3.7 cm
Plan:
-Presented with worsening weight gain, LE edema, and MUNOZ. Admitted with acute HFpEF. ProBNP 4650.
-Diuresing with IV lasix 40mg BID. Weight unchanged overnight if accurate at 184lbs. Down from 198 lbs in ER on arrival.
-Continue to follow daily weights, I&Os. Creat 1.4 11/01 and up to 1.5 11/02. Still volume overloaded, however will need to follow renal function closely.
-CHF education.
-Echo 10/21 with preserved EF and moderate MR as noted above.
-Wound care consulted for LE edema with scabbing and blisters. Noted to have LE PAD by extremity arterial study earlier this month.
-BP has been elevated. Atenolol transitioned to carvedilol 6.25mg BID.
-Amlodipine restarted in AM 11/01, however is not ideal medication w/ edema. New to Hydralazine 25mg BID this admission.
-Continue valsartan at lower dose 160mg daily.
-As able, would d/c amlodipine and increase coreg and/or hydralazine for better BP control.
-Will have CM assess cost of SGLT2 inhibitor.
-Reviewed telemetry and runs of atrial tachycardia noted. Continue to follow for now. Asymptomatic. No h/o atrial arrhythmia.
-Wean O2 as able.
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
Subjective
Date of Service: November 02, 2024
Reports breathing is improving.
Objective
Labs:
11/01/24 10:23
11/01/24 17:42
Labs
Hgb 10.9 g/dL (13.0-18.0) L 11/01/24 10:23
Hct 35.0 % (39.0-52.0) L 11/01/24 10:23
Plt Count 279 10^3/uL (130-400) 11/01/24 10:23
Sodium 134 mmol/L (135-145) L 11/01/24 17:42
Potassium 3.8 mmol/L (3.5-5.1) 11/01/24 17:42
BUN 33 mg/dl (9-20) H 11/01/24 17:42
Creatinine 1.3 mg/dL (0.7-1.3) 11/01/24 17:42
Glucose 233 mg/dl (70-99) H 11/01/24 17:42
Troponins
10/31/24
11:08
Troponin I 0.020
Vital Signs and I&O:
Vital Signs
Temp Pulse Resp BP Pulse Ox
97.9 F 73 18 137/69 98
11/02/24 03:00 11/02/24 08:02 11/02/24 08:02 11/02/24 03:00 11/02/24 08:02
Vital Signs
Temp Pulse Resp BP Pulse Ox
97.9 F 73 18 137/69 98
11/02/24 03:00 11/02/24 08:02 11/02/24 08:02 11/02/24 03:00 11/02/24 08:02
Intake & Output
10/31/24 11/01/24 11/02/24 11/03/24
06:59 06:59 06:59 06:59
Intake Total 480 / 480 1919
Output Total 1924 / 1924 1800 / 1800
Balance -1445 / -1445 120 / 120
Physical Exam
Physical Exam
GEN: No distress, awake, alert, oriented x3
HEENT: supple, anicteric, mmm
LUNGS: crackles and rhonchi b/l, no wheezes
CV: Reg, S1/S2, no murmur
EXT: No clubbing, ro cyanosis. +2 edema b/l LE
NEURO: Gross non-focal
SKIN: Warm, dry. Erythema of b/l LE to knees w/ blisters, scabs
[2024-11-02 09:00] LABS: Blood Urea Nitrogen 35 mg/dl (9-20); Calcium 7.7 mg/dl (8.4-10.2); Carbon Dioxide 33 mmol/L (22-30); Chloride 103 mmol/L (98-107); Estimated Creatinine Clearance 35 ml/min; Glucose 127 mg/dl (70-99); Potassium 4.1 mmol/L (3.5-5.1); Sodium 138 mmol/L (135-145); eGFR 46.19
[2024-11-02] MEDS: APRESOLINE 25 MG PO ×2 (09:58→19:50)
[2024-11-02] MEDS: SOLU-MEDROL PF 40 MG IV (09:59)
[2024-11-02] MEDS: NORVASC 5 MG PO (10:00)
[2024-11-02] MEDS: PROTONIX 40 MG PO (10:00)
[2024-11-02] MEDS: LASIX 40 MG IV ×2 (10:00→15:05)
[2024-11-02] MEDS: DIOVAN 160 MG PO (10:01)
[2024-11-02] MEDS: COREG 6.25 MG PO ×2 (10:01→19:51)
[2024-11-02] MEDS: PLETAL 100 MG PO ×2 (10:01→19:50)
[2024-11-02] MEDS: HEPARIN 5000 UNITS SC ×2 (10:02→19:50)
[2024-11-02] MEDS: HYDROPHOR 1 APPLIC TOPICAL (10:04)
--- NOTE | 2024-11-02 10:41 | W.PN.HOSP.TC ---
Today's Communication/Plan
-
c/w IV Steroid
Neb
Lasix
Monitor for urinary retention
Assessment / Plan
Assessment / Plan
Physical Exam
General: Conversant and Appears in Distress
HEENT: Moist mucous membranes and Atraumatic
Respiratory: Rales and Decreased Breath Sounds
Cardiac: S1/S2
GI: Soft, Non Tender and Non Distended
Rectal: No Maroon Stools
Genito-urinary: No costovertebral tender
Musculoskeletal: No Cyanosis, Edema, Left Lower Extremity and Edema, Right Lower Extremity
Skin: Warm; No Jaundice
Neuro: AO x 3 and Nonfocal/grossly intact
Psych: Calm and Intact Judgment/Insight
84 years old male presented with progressive shortness of breath
#Acute respiratory distress//acute hypoxic respiratory failure. Due to Acute on chronic heart failure with preserved ejection fraction + COPD exacerbation
Acute COPD exacerbation
CT chest seems c/w ILD/ Fibrosis or diffuse interstitial pneumonitis
Procalcitonin negative
c/w IV Lasix
c/w nebulizer
c/w IV Steroid
c/w Hydralazine
Coreg was added
Recent echocardiogram in October 2024 showed LVEF 60 to 65% with diastolic heart dysfunction, moderate mitral regurgitation, mild TR, estimated pulmonary artery pressure of 52 mmHg. Mild concentric LVH.
Appreciate pulmonary & cardiology input
# Primary hypertension. Patient takes amlodipine, atenolol, Diovan and hydrochlorothiazide.
Currently started on high-dose IV furosemide, Amlodipine, Coreg, hydralazine, Diovan
# Bilateral lower extremity stasis dermatitis. Consistent with peripheral edema/ dermatitis. per pt, developed over last few months.
# Acute kidney injury , suspect underlying CKD stage IIIA
Per family OP blood work showed renal function impairment
c/w Diuretic TX and monitor renal function/ weight and retention
Renal US showed Renal cortical thinning on each side, consistent with medical renal disease, no hydronephrosis on either side.
# DVT prophylaxis
Total time spent to see the patient, examine the patient, review data and lab results, discuss the treatment plan with patient, consultants, nursing staff around 55 minutes
Anticipated Discharge: > 48 hours
Subjective/Interval History
-
Date of Service: November 02, 2024
He is feeling better
less sob
no chest pain
Objective Data
-
Labs:
Laboratory Results
11/02/24
08:16
Sodium 138
Potassium 4.1
Chloride 103
Carbon Dioxide 33 H
BUN 35 H
Creatinine 1.5 H
Glucose 127 H
Calcium 7.7 L
Vital Signs:
Vital Signs
Temp Pulse Resp BP Pulse Ox
97.3 F 73 18 135/71 98
11/02/24 07:45 11/02/24 08:02 11/02/24 08:02 11/02/24 07:45 11/02/24 08:02
I&O
11/01/24 11/02/24 11/03/24
06:59 06:59 06:59
Intake Total 480 / 480 1919
Output Total 1924 / 1924 1800 / 1800
Balance -1445 / -1445 120 / 120
[2024-11-02 11:45] VITALS: BP 128/59
[2024-11-02] MEDS: REFRESH EYE DROPS (PF) 1 DROPS OPHTH ×3 (15:05→20:59)
[2024-11-02 15:45] VITALS: BP 149/74
--- NOTE | 2024-11-02 18:17 | W.PN.PUL3 ---
Today's Communication / Plan
-
Continue diuresis, medication management per cardiology
Transition to oral prednisone, rapid wean
Do not suspect COPD flare
Check ambulatory saturation
Assessment
-
84-year-old man with past medical history noted, admitted with progressive shortness of breath. Found to be hypoxemic which is new for him. Abnormal chest x-ray suggestive of heart failure. Also recently diagnosed with COPD and he is a former
smoker. We were consulted on 10/31/2024 for evaluation.
Acute hypoxemic respiratory failure pulse ox 83% on room air-progressive shortness of breath. Requiring 3-5 L supplemental oxygen new for him
Suggest suspect mainly driven by t acute heart failure with preserved ejection fraction -proBNP 4650.
Chest x-ray10/31/2024: Minimal bilateral pleural effusions, significant pulmonary vascular congestion.
Negative troponin
Echocardiogram 10/21/2024: Normal LVEF. No regional wall motion abnormality. Mild LVH. Stage III diastolic dysfunction, increased filling pressures. Normal RV size and function. Moderately dilated atrium. Moderate MR. Mild TR. Pulmonary
artery pressure 52 mmHg. No pericardial effusion.
Bilateral lower extremity Edema with stasis dermatitis
Conditions present prior admission:
COPD
Hypertension
Former smoker quit in [id number]-year history
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
Left lower extremity peripheral arterial disease by recent duplex ultrasound
Assessment and plan:
Clinical picture suggest acute onset pulmonary edema, recently seen in the pulmonary office with crackles, lower extremity swelling, echocardiogram was performed and demonstrated diastolic dysfunction with increased filling pressures.
At that time on mid October no oxygen requirements.
Earlier in the morning 11/01/2024: Increase shortness of breath and also bronchospastic.
Discussed with Dr. Bunn -diuresis given, steroids started.
-
Symptoms mainly driven by pulmonary vascular congestion from heart failure with preserved ejection fraction-echocardiogram was noted to have suggestion of increased filling pressures-proBNP significantly elevated
CT chest 11/01/2024: Reviewed small bilateral pleural effusions, increased bilateral reticular interstitial thickening with patchy groundglass opacity. Suspect heart failure but cannot rule out underlying interstitial lung disease such as pulmonary
fibrosis/IPF.
Continue IV diuresis-creatinine is rising, currently 1.5.
Discussed with cardiology: Been optimized from the cardiac perspective.
Heart failure education
I do feel he is improved overall
Agree with ongoing cardiac management. Medication changes noted
-
Moderate to severe COPD by spirometry: Former smoker quit many years ago. Not on exacerbation.
Recently placed on Trelegy by Dr. Larson-not significantly bronchospastic on admission. Restarted inhalers upon discharge.
Continue DuoNebs [id number]
Pulmicort started 11/01/2024 Solu-Medrol started by primary service
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 Unclear whether an acute exacerbation versus cardiac wheezing.
No indication for antibiotics.
Lets decrease steroids, transition to oral
-
Continue oxygen supplementation hopefully will improve with diuresis.
Currently wearing 5 L
-
There was concern for possible underlying interstitial lung disease in the outpatient setting.
CT chest as above noted. Will repeat once he is able to diuresis in the future. In about 6 to 8 weeks.
-
Lower extremity edema with stasis dermatitis
Patient does have hyperammonemia as well as proteinuria on UA.
Defer to primary for further evaluation
-
DVT prophylaxis heparin subcu.
-
Will continue to follow.
-
Follow-up with Dr. Larson after DC.
Subjective Data
-
Date of Service:
Date of Service: November 02, 2024
Chief Complaint: Pulmonary Follow Up (Acute hypoxemic respiratory failure/COPD/heart failure)
Subjective:
Patient seen earlier today, late entry. Patient feels symptoms have improved significantly. Less short of breath, denies chest pain, cough, abdominal pain. Feels lower extremity swelling has improved
Objective Data
Data Reviewed
Vital Signs / I&O / Oxygen:
Vital Signs
Temp Pulse Resp BP Pulse Ox
97.6 F 82 18 149/74 94
11/02/24 15:45 11/02/24 15:45 11/02/24 15:45 11/02/24 15:45 11/02/24 16:35
Intake and Output
11/01/24 11/02/24 11/03/24
06:59 06:59 06:59
Intake Total 480 / 480 1919 / 1919
Output Total 1924 / 1924 1800 / 1800
Balance -1445 / -1445 120 / 120
SaO2 94
Nasal Cannula flow liters per 3
minute
Physical Exam
General: Comfortable
HEENT: Normocephalic
Cardiovascular: S1-S2, Regular Rhythm and Peripheral Edema (Trace)
Respiratory: Wheeze (Forced expiratory) and Crackles (Mild at base)
GI: Soft and Non Distended
Neurology: Awake, Alert and No Motor Deficits
Skin: Warm and Other (Chronic lower extremity venous stasis, improved)
Labs/Micro/Reports
Lab Data
11/01/24 10:23
11/02/24 08:16
[2024-11-02 19:00] VITALS: BP 137/72
[2024-11-02] MEDS: ZOLOFT 25 MG PO (19:54)
[2024-11-02 23:00] VITALS: BP 122/35
[2024-11-03 03:00] VITALS: BP 101/62
[2024-11-03 06:16] LABS: Blood Urea Nitrogen 41 mg/dl (9-20); Calcium 7.6 mg/dl (8.4-10.2); Carbon Dioxide 31 mmol/L (22-30); Chloride 102 mmol/L (98-107); Estimated Creatinine Clearance 35 ml/min; Glucose 116 mg/dl (70-99); Potassium 3.8 mmol/L (3.5-5.1); Sodium 136 mmol/L (135-145); eGFR 46.19
[2024-11-03 07:00] VITALS: BP 140/66
--- NOTE | 2024-11-03 08:08 | CM ---
patient daughter called & [facility] rx given to CM
Case management consult completed - cost for Jardiance 10mg daily & Farxiga 10mg daily
--ID #[id number]
CM called & service center closed
Received cost via [employer] amb orders
Jardiance 10mg daily 30 day - $45.00
Farxiga 10mg daily 30 day - $45.00
kaiser Rose cardio PA & hospitalist Dr. Bunn
[2024-11-03] MEDS: PULMICORT 0.5 MG INH ×2 (08:37→19:43)
[2024-11-03] MEDS: DUONEB 3 ML INH ×4 (08:37→19:43)
[2024-11-03] MEDS: LASIX 40 MG IV ×2 (09:21→16:59)
[2024-11-03] MEDS: PROTONIX 40 MG PO (09:25)
[2024-11-03] MEDS: DELTASONE 30 MG PO (09:26)
[2024-11-03] MEDS: DIOVAN 160 MG PO (09:26)
[2024-11-03] MEDS: PLETAL 100 MG PO ×2 (09:27→19:37)
[2024-11-03] MEDS: COREG 6.25 MG PO ×2 (09:27→19:36)
[2024-11-03] MEDS: REFRESH EYE DROPS (PF) 1 DROPS OPHTH ×4 (09:27→22:00)
[2024-11-03] MEDS: NORVASC 5 MG PO (09:28)
[2024-11-03] MEDS: HEPARIN 5000 UNITS SC ×2 (09:28→19:37)
[2024-11-03] MEDS: APRESOLINE 25 MG PO ×2 (09:29→19:36)
[2024-11-03] MEDS: HYDROPHOR 1 APPLIC TOPICAL (09:30)
[2024-11-03 11:00] VITALS: BP 136/70
--- NOTE | 2024-11-03 11:28 | W.PN.HOSP.TC ---
Today's Communication/Plan
-
Oral prednisone
Weight daily
Incentive Spirometry
Assessment / Plan
Assessment / Plan
Physical Exam
General: Conversant and Appears in Distress
HEENT: Moist mucous membranes and Atraumatic
Respiratory: less Rales and still Decreased Breath Sounds
Cardiac: S1/S2
GI: Soft, Non Tender and Non Distended
Rectal: No Maroon Stools
Genito-urinary: No costovertebral tender
Musculoskeletal: No Cyanosis, Edema, Left Lower Extremity and Edema, Right Lower Extremity
Skin: Warm; No Jaundice
Neuro: AO x 3 and Nonfocal/grossly intact
Psych: Calm and Intact Judgment/Insight
84 years old male presented with progressive shortness of breath
#Acute respiratory distress//acute hypoxic respiratory failure. Due to Acute on chronic heart failure with preserved ejection fraction + COPD exacerbation
Acute COPD exacerbation
CT chest seems c/w ILD/ Fibrosis or diffuse interstitial pneumonitis
Procalcitonin negative
c/w IV Lasix, will change to oral in AM
c/w nebulizer
s/p IV Steroid, change to oral
c/w Hydralazine
Coreg was added
Add IS
Recent echocardiogram in October 2024 showed LVEF 60 to 65% with diastolic heart dysfunction, moderate mitral regurgitation, mild TR, estimated pulmonary artery pressure of 52 mmHg. Mild concentric LVH.
Appreciate pulmonary & cardiology input
# Hyponatremia
# Primary hypertension. Patient takes amlodipine, atenolol, Diovan and hydrochlorothiazide.
Currently started on high-dose IV furosemide, Amlodipine, Coreg, hydralazine, Diovan
# Bilateral lower extremity stasis dermatitis. Consistent with peripheral edema/ dermatitis. per pt, developed over last few months.
# Acute kidney injury , suspect underlying CKD stage IIIA
Per family OP blood work showed renal function impairment
c/w Diuretic TX and monitor renal function/ weight and retention
Renal US showed Renal cortical thinning on each side, consistent with medical renal disease, no hydronephrosis on either side.
# DVT prophylaxis
Total time spent to see the patient, examine the patient, review data and lab results, discuss the treatment plan with patient, consultants, nursing staff around 55 minutes
Anticipated Discharge: 24 - 48 hours
Subjective/Interval History
-
Date of Service: November 03, 2024
He feels better
Less sob
Less edema in legs
Objective Data
-
Labs:
Laboratory Results
11/03/24
05:26
Sodium 136
Potassium 3.8
Chloride 102
Carbon Dioxide 31 H
BUN 41 H
Creatinine 1.5 H
Glucose 116 H
Calcium 7.6 L
Vital Signs:
Vital Signs
Temp Pulse Resp BP Pulse Ox
97.5 F 84 18 140/66 98
11/03/24 07:00 11/03/24 08:42 11/03/24 08:42 11/03/24 07:00 11/03/24 09:17
I&O
11/02/24 11/03/24 11/04/24
06:59 06:59 06:59
Intake Total 1920 / 1920 660 / 660
Output Total 1800 / 1800 1025 / 1025
Balance 120 / 120 -365 / -365
--- NOTE | 2024-11-03 13:37 | W.PN.CARDCBS ---
Today's Communication / Plan
-
Consider transition to oral Lasix on November 04
Wean oxygen as able
Cardiac medications adjusted
Impression / Plan
-
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 Elizondo 11/12/24
Assessment:
Presentation with weight gain, LE edema, MUNOZ
Acute HFpEF
Atrial tachycardia
Moderate MR
CKD
PAD, abnormal L IVAN, mod to severe claudication
HTN
HLD
GERD
COPD
Hernia
Anemia
Hypoalbuminemia
ECHO 10/21/24: EF 60 to 65%, mild concentric LVH, stage III diastolic dysfunction, moderately dilated atria, mild MAC, moderate MR, mild TR, PAP 52 mmHg, ascending aorta top normal at 3.7 cm
Plan:
-Presented with worsening weight gain, LE edema, and MUNOZ. Admitted with acute HFpEF. ProBNP 4650.
-Diuresing with IV lasix 40mg BID. His creatinine is stable and feel it is reasonable to switch him over to oral Lasix on November 04
-Echo 10/21 with preserved EF and moderate MR as noted above.
-Wound care consulted for LE edema with scabbing and blisters. Noted to have LE PAD by extremity arterial study earlier this month.
-BP has been elevated. Atenolol transitioned to carvedilol 6.25mg BID.
-Amlodipine restarted in AM 11/01, however is not ideal medication w/ edema. New to Hydralazine 25mg BID this admission.
-Continue valsartan at lower dose 160mg daily.
-Wean O2 as able. Trial today with some desaturation that he went back onto nasal oxygen
Progress Note - Rigger Apprentice
Subjective
Date of Service: November 03, 2024
Objective
Labs:
11/01/24 10:23
11/03/24 05:26
Labs
Hgb 10.9 g/dL (13.0-18.0) L 11/01/24 10:23
Hct 35.0 % (39.0-52.0) L 11/01/24 10:23
Plt Count 279 10^3/uL (130-400) 11/01/24 10:23
Sodium 136 mmol/L (135-145) 11/03/24 05:26
Potassium 3.8 mmol/L (3.5-5.1) 11/03/24 05:26
BUN 41 mg/dl (9-20) H 11/03/24 05:26
Creatinine 1.5 mg/dL (0.7-1.3) H 11/03/24 05:26
Glucose 116 mg/dl (70-99) H 11/03/24 05:26
Vital Signs and I&O:
Vital Signs
Temp Pulse Resp BP Pulse Ox
97.6 F 82 18 136/70 96
11/03/24 11:00 11/03/24 12:07 11/03/24 12:07 11/03/24 11:00 11/03/24 12:07
Vital Signs
Temp Pulse Resp BP Pulse Ox
97.6 F 82 18 136/70 96
11/03/24 11:00 11/03/24 12:07 11/03/24 12:07 11/03/24 11:00 11/03/24 12:07
Intake & Output
11/01/24 11/02/24 11/03/24 11/04/24
06:59 06:59 06:59 06:59
Intake Total 480 / 480 0 / 0 660 / 660
Output Total 1924 / 1924 1800 / 1800 1025 / 1025
Balance -1445 / -1445 120 / 120 -365 / -365
Physical Exam
Physical Exam
����Physical Exam
���������������������General:��no apparent distress, not acutely ill
���������������������������Neck:��supple. no meningeal signs. normal psoterior pharynx
������������������������
���������������������������Heart:��s1/s2 regular rate and rhythm, no murmur. equal radial pulses.
��������������������������Lungs: ��no acute respiratory distress. clear bilaterally
����������������������Abdomen:�normal bowel sounds. not tender. no CVAT
��������������������������Neuro:��alert and oriented. no focal neurological deficits
������������������������������Skin: ��no rash
�����������������������Psychiatric:�well kept. interactive and cooperative
�����������������������Extremities:��no edema. no calf tenderness. negative homans. good distal pulses
��
�
[2024-11-03 15:00] VITALS: BP 137/65
--- NOTE | 2024-11-03 15:49 | W.PN.PUL3 ---
Today's Communication / Plan
-
Continue to wean oxygen
Continue diuresis per cardiology
Check ambulatory saturation
Check VSE
No change in oral prednisone
Assessment
-
84-year-old man with past medical history noted, admitted with progressive shortness of breath. Found to be hypoxemic which is new for him. Abnormal chest x-ray suggestive of heart failure. Also recently diagnosed with COPD and he is a former
smoker. We were consulted on 10/31/2024 for evaluation.
Acute hypoxemic respiratory failure pulse ox 83% on room air-progressive shortness of breath. Requiring 3-5 L supplemental oxygen new for him
Suggest suspect mainly driven by t acute heart failure with preserved ejection fraction -proBNP 4650.
Chest x-ray10/31/2024: Minimal bilateral pleural effusions, significant pulmonary vascular congestion.
Negative troponin
Echocardiogram 10/21/2024: Normal LVEF. No regional wall motion abnormality. Mild LVH. Stage III diastolic dysfunction, increased filling pressures. Normal RV size and function. Moderately dilated atrium. Moderate MR. Mild TR. Pulmonary
artery pressure 52 mmHg. No pericardial effusion.
Bilateral lower extremity Edema with stasis dermatitis
Conditions present prior admission:
COPD
Hypertension
Former smoker quit in [id number]-year history
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
Left lower extremity peripheral arterial disease by recent duplex ultrasound
Assessment and plan:
Clinical picture suggest acute onset pulmonary edema, recently seen in the pulmonary office with crackles, lower extremity swelling, echocardiogram was performed and demonstrated diastolic dysfunction with increased filling pressures.
At that time on mid October no oxygen requirements.
Earlier in the morning 11/01/2024: Increase shortness of breath and also bronchospastic.
Discussed with Dr. Bunn -diuresis given, steroids started.
Seems to have responded to diuresis as well
Chest x-ray today somewhat improved
-
Symptoms mainly driven by pulmonary vascular congestion from heart failure with preserved ejection fraction-echocardiogram was noted to have suggestion of increased filling pressures-proBNP significantly elevated
CT chest 11/01/2024: Reviewed small bilateral pleural effusions, increased bilateral reticular interstitial thickening with patchy groundglass opacity. Suspect heart failure but cannot rule out underlying interstitial lung disease such as pulmonary
fibrosis/IPF.
Continue IV diuresis-creatinine is rising, currently 1.5.
Discussed with cardiology: Been optimized from the cardiac perspective.
Heart failure education
I do feel he is improved overall
Agree with ongoing cardiac management. Medication changes noted
-
Moderate to severe COPD by spirometry: Former smoker quit many years ago. Not on exacerbation.
Recently placed on Trelegy by Dr. Larson-not significantly bronchospastic on admission. Restarted inhalers upon discharge.
Continue DuoNebs [id number]
Pulmicort started 11/01/2024 Solu-Medrol started by primary service
11/01/2024 for home care specialist wheezing. Unclear whether an acute exacerbation versus cardiac wheezing.
No indication for antibiotics.
Lets decrease steroids, transition to oral
Check VSE
-
Continue oxygen supplementation hopefully will improve with diuresis.
Currently wearing 5 L
Check ambulatory saturation
-
There was concern for possible underlying interstitial lung disease in the outpatient setting.
CT chest as above noted. Will repeat once he is able to diuresis in the future. In about 6 to 8 weeks.
-
Lower extremity edema with stasis dermatitis
Patient does have hyperammonemia as well as proteinuria on UA.
Defer to primary for further evaluation
-
DVT prophylaxis heparin subcu.
-
Will continue to follow.
-
Follow-up with Dr. Larson after DC.
Subjective Data
-
Date of Service:
Date of Service: November 03, 2024
Chief Complaint: Pulmonary Follow Up (Acute hypoxemic respiratory failure/COPD/heart failure)
Subjective:
Patient continues to improve objectively and subjectively. He states he walks to the bathroom without difficulty. He has mild productive cough, no hemoptysis. Denies chest pain
Objective Data
Data Reviewed
Vital Signs / I&O / Oxygen:
Vital Signs
Temp Pulse Resp BP Pulse Ox
97.6 F 80 18 136/70 97
11/03/24 11:00 11/03/24 15:38 11/03/24 15:38 11/03/24 11:00 11/03/24 15:38
Intake and Output
11/02/24 11/03/24 11/04/24
06:59 06:59 06:59
Intake Total 1920 / 1920 660 / 660
Output Total 1800 / 1800 1025 / 1025
Balance 120 / 120 -365 / -365
SaO2 97
Nasal Cannula flow liters per 2
minute
Physical Exam
General: Comfortable
HEENT: Normocephalic
Cardiovascular: S1-S2, Regular Rhythm and Peripheral Edema (Trace)
Respiratory: Wheeze (Forced expiratory), Crackles (Mild at base) and Rhonchi (Few scattered)
GI: Soft and Non Distended
Neurology: Awake, Alert and No Motor Deficits
Skin: Warm and Other (Chronic lower extremity venous stasis, improved)
Labs/Micro/Reports
Lab Data
11/01/24 10:23
11/03/24 05:26
[2024-11-03 20:05] VITALS: BP 160/83
[2024-11-03] MEDS: ZOLOFT 25 MG PO (22:00)
[2024-11-03 23:18] VITALS: BP 125/52
[2024-11-04 03:10] VITALS: BP 124/57
[2024-11-04 05:26] VITALS: BMI 29.2
[2024-11-04 07:00] VITALS: BP 134/68
[2024-11-04 08:48] LABS: Hematocrit 31.1 % (39.0-52.0); Hemoglobin 9.7 g/dL (13.0-18.0); Mean Corp Hgb Conc. 31.2 g/dL (33.0-37.0); Mean Corpuscular Hgb 25.5 pg (27.0-31.0); Mean Corpuscular Volume 81.8 fL (80.0-94.0); Mean Platelet Volume 9.7 fL (7.4-10.4); Platelet Count 249 10^3/uL (130-400); Red Cell Dist. Width 15.8 % (11.5-14.5); White Blood Cell Count 11.3 10^3/uL (4.8-10.8)
--- NOTE | 2024-11-04 08:58 | W.PN.PUL3 ---
Today's Communication / Plan
-
Continue to wean oxygen as tolerated with goal SpO2 88-95%
Continue diuresis per cardiology
Check ambulatory saturation prior to discharge
Diet as per MIXING MACHINE TENDER
Continue with prednisone taper (perhaps he was having and acute exacerbation given his initial absolute eosinophil count was 600 and PFT findings from 10/18/2024)
Assessment
-
84-year-old man with past medical history noted, admitted with progressive shortness of breath. Found to be hypoxemic which is new for him. Abnormal chest x-ray suggestive of heart failure. Also recently diagnosed with COPD and he is a former
smoker. We were consulted on 10/31/2024 for evaluation.
Impression:
Acute hypoxemic respiratory failure pulse ox 83% on room air-progressive shortness of breath. Requiring 3-5 L supplemental oxygen that is new for him
Suggest suspect mainly driven by acute HFpEF exacerbation -proBNP 4650.
Chest x-ray10/31/2024: Minimal bilateral pleural effusions, significant pulmonary vascular congestion.
Negative troponin
Echocardiogram 10/21/2024: Normal LVEF. No regional wall motion abnormality. Mild LVH. Stage III diastolic dysfunction, increased filling pressures. Normal RV size and function. Moderately dilated atrium. Moderate MR. Mild TR. Pulmonary
artery pressure 52 mmHg. No pericardial effusion.
Bilateral lower extremity Edema with stasis dermatitis
Increased eosinophil count (absolute eosinophil count: 600 on admission)
Conditions present prior admission:
COPD (suspect component of asthma given his near normalization of diffusing capacity with alveolar volume, and borderline significant bronchodilator response, plus has eosinophilia on blood work)
Hypertension
Former smoker quit in [id number]-year history
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
Left lower extremity peripheral arterial disease by recent duplex ultrasound
Assessment and plan:
Clinical picture suggest acute onset pulmonary edema, recently seen in the pulmonary office with crackles, lower extremity swelling, echocardiogram was performed and demonstrated diastolic dysfunction with increased filling pressures.
At that time in mid October no oxygen requirements.
Earlier in the morning on 11/01/2024: Increase shortness of breath and also bronchospastic.
Discussed with Dr. Bunn -diuresis given, steroids started.
Seems to have responded to diuresis as well
Chest x-ray from 11/03/2024 somewhat improved, but still with extensive diffuse bilateral interstitial/airspace opacities
-
Symptoms mainly driven by pulmonary vascular congestion from heart failure with preserved ejection fraction-echocardiogram was noted to have suggestion of increased filling pressures-proBNP significantly elevated
CT chest 11/01/2024: Reviewed small bilateral pleural effusions, increased bilateral reticular interstitial thickening with patchy groundglass opacity. Suspect heart failure but cannot rule out underlying interstitial lung disease such as pulmonary
fibrosis/IPF.
Continue IV diuresis-creatinine is rising, currently 1.5 --> 1.3
Discussed with cardiology: Been optimized from the cardiac perspective.
Heart failure education
Agree with ongoing cardiac management. Medication changes noted
-
Moderate to severe COPD by spirometry: Former smoker quit many years ago.
Recently placed on Trelegy by Dr. Larson-not significantly bronchospastic on admission. Restart inhalers upon discharge.
Continue DuoNebs QID
Pulmicort started 11/01/2024 s/p Solu-Medrol started by primary service (given for 3 doses with last dose on 11/02/2024) --> continue prednisone with taper (currently on 30mg daily)
11/01/2024 - tea bag packer wheezing. Unclear whether an acute exacerbation versus cardiac wheezing.
No indication for antibiotics.
VSE performed today showed laryngeal penetration with no aspiration seen; MIXING MACHINE TENDER recommended regular diet with thin liquids
-
Continue oxygen supplementation hopefully will improve with diuresis.
Currently wearing 2L from 5L/min
Check ambulatory pulse oximetry prior to discharge
-
There was concern for possible underlying interstitial lung disease in the outpatient setting.
CT chest as above noted. Will need to repeat imaging after he is euvolemic, with repeat to be done in about 6-8 week
-
Lower extremity edema with stasis dermatitis
Patient does have hyperalbuminuria as well as proteinuria on UA.
Defer to primary for further evaluation
-
DVT prophylaxis heparin subcu.
-
Will continue to follow.
-
Follow-up with Dr. Larson after DC.
Total time spent today was 37 minutes for this encounter. Time includes reviewing laboratory test/imaging results, reviewing pertinent medical records, obtaining and reviewing medical history, performing an appropriate exam, ordering medications,
tests and procedures. Time also includes documentation of this encounter, coordinating patient care and communicating with other healthcare professionals. Total time does not include separately billed tests performed on this date of service.
Subjective Data
-
Date of Service:
Date of Service: November 04, 2024
Chief Complaint: Pulmonary Follow Up (Acute hypoxemic respiratory failure/COPD/heart failure)
Subjective:
Patient seen and evaluated today at bedside. Went down for video swallow evaluation today showing laryngeal penetration with no aspiration seen. No acute events reported overnight. Denies chest pain, BACH, abdominal pain, fevers or chills.
Review of Systems
General: Other (Negative unless mentioned above)
Objective Data
Data Reviewed
Vital Signs / I&O / Oxygen:
Vital Signs
Temp Pulse Resp BP Pulse Ox
97.5 F 85 18 134/68 96
11/04/24 07:00 11/04/24 09:22 11/04/24 09:22 11/04/24 07:00 11/04/24 09:22
Intake and Output
11/03/24 11/04/24 11/05/24
06:59 06:59 06:59
Intake Total 660 / 660 1740 / 1740
Output Total 1025 / 1025 1025 / 1025
Balance -365 / -365 715 / 715
SaO2 96
Nasal Cannula flow liters per 2
minute
Physical Exam
General: Respiratory Distress (n) and Comfortable
HEENT: Normocephalic
Cardiovascular: S1-S2, Regular Rhythm and Peripheral Edema (Trace)
Respiratory: Wheeze (Forced expiratory), Crackles (Mild at base) and Rhonchi (Few scattered)
GI: Soft and Non Distended
Neurology: Awake, Alert and No Motor Deficits
Skin: Warm and Other (Chronic lower extremity venous stasis, improved)
Labs/Micro/Reports
Lab Data
11/04/24 07:03
11/04/24 07:03
[2024-11-04] MEDS: LASIX 40 MG IV ×2 (09:01→16:50)
[2024-11-04] MEDS: PROTONIX 40 MG PO (09:02)
[2024-11-04] MEDS: REFRESH EYE DROPS (PF) 1 DROPS OPHTH ×4 (09:02→21:38)
[2024-11-04] MEDS: DELTASONE 30 MG PO (09:02)
[2024-11-04] MEDS: HEPARIN 5000 UNITS SC ×2 (09:02→20:06)
[2024-11-04] MEDS: DIOVAN 160 MG PO (09:02)
[2024-11-04] MEDS: COREG 6.25 MG PO ×2 (09:03→20:06)
[2024-11-04] MEDS: NORVASC 5 MG PO (09:03)
[2024-11-04] MEDS: APRESOLINE 25 MG PO ×2 (09:03→20:06)
[2024-11-04] MEDS: PLETAL 100 MG PO ×2 (09:03→20:06)
[2024-11-04] MEDS: PULMICORT 0.5 MG INH ×2 (09:20→19:30)
[2024-11-04] MEDS: DUONEB 3 ML INH ×4 (09:20→19:30)
[2024-11-04 09:28] LABS: Blood Urea Nitrogen 45 mg/dl (9-20); Calcium 7.6 mg/dl (8.4-10.2); Carbon Dioxide 31 mmol/L (22-30); Chloride 101 mmol/L (98-107); Estimated Creatinine Clearance 41 ml/min; Glucose 75 mg/dl (70-99); Potassium 3.7 mmol/L (3.5-5.1); Sodium 136 mmol/L (135-145); eGFR 54.85
--- NOTE | 2024-11-04 09:45 | W.PN.HOSP.TC ---
Today's Communication/Plan
-
Continue IV Lasix, steroids
Assessment / Plan
Assessment / Plan
Physical Exam
General: Not in acute distress
HEENT: Moist mucous membranes and Atraumatic
Respiratory: Scattered rhonchi bilaterally
Cardiac: S1/S2. RRR.
GI: Soft, Non Tender and Non Distended. Positive bowel sounds.
Musculoskeletal: No Cyanosis. Edema, Left Lower Extremity and Edema, Right Lower Extremity
Skin: Warm. Dry.
Neuro: AO x 3 and Nonfocal/grossly intact
Psych: Calm and Intact Judgment/Insight
Assessment/Plan
84 years old male presented with progressive shortness of breath
#Acute respiratory distress - IMPROVED SIGNIFICANTLY//acute hypoxic respiratory failure. Due to Acute on chronic heart failure with preserved ejection fraction + COPD exacerbation
Acute COPD exacerbation
CT chest seems c/w ILD/ Fibrosis or diffuse interstitial pneumonitis
Procalcitonin negative
c/w IV Lasix, hopefully can change to oral in 24 hours
c/w nebulizer
s/p IV Steroid, changed to oral: continue PO Prednisone
c/w Hydralazine
Coreg was added
Continue Incentive Spirometer
Recent echocardiogram in October 2024 showed LVEF 60 to 65% with diastolic heart dysfunction, moderate mitral regurgitation, mild TR, estimated pulmonary artery pressure of 52 mmHg. Mild concentric LVH.
Appreciate pulmonary & cardiology input
VSE completed, await speech recommendations
# Hyponatremia - RESOLVED
# Primary hypertension. Patient takes amlodipine, atenolol, Diovan and hydrochlorothiazide.
Currently on high-dose IV furosemide, Amlodipine, Coreg, hydralazine, Diovan
# Bilateral lower extremity stasis dermatitis. Consistent with peripheral edema/ dermatitis. per pt, developed over last few months.
# Acute kidney injury , suspect underlying CKD stage IIIA
Per family OP blood work showed renal function impairment
c/w Diuretic TX and monitor renal function/ weight and retention
Renal US showed Renal cortical thinning on each side, consistent with medical renal disease, no hydronephrosis on either side.
# DVT prophylaxis: Heparin subq
Anticipated Discharge: Within 24 hours
Subjective/Interval History
-
Date of Service: November 04, 2024
Patient was seen and examined. His family was at his bedside, he denied any complaints, and said he feels much improved compared to admission.
Objective Data
-
Labs:
Laboratory Results
11/04/24
07:03
WBC 11.3 H
Hgb 9.7 L
Hct 31.1 L
Plt Count 249
Sodium 136
Potassium 3.7
Chloride 101
Carbon Dioxide 31 H
BUN 45 H
Creatinine 1.3
Glucose 75
Calcium 7.6 L
Vital Signs:
Vital Signs
Temp Pulse Resp BP Pulse Ox
97.5 F 85 18 134/68 96
11/04/24 07:00 11/04/24 09:22 11/04/24 09:22 11/04/24 07:00 11/04/24 09:22
I&O
11/03/24 11/04/24 11/05/24
06:59 06:59 06:59
Intake Total 660 / 660 1740 / 1740
Output Total 1025 / 1025 1025 / 1025
Balance -365 / -365 715 / 715
[2024-11-04 10:43] LABS: Albumin 1.7 g/dl (3.5-5.0)
--- NOTE | 2024-11-04 10:52 | W.PN.CARDCBS ---
Today's Communication / Plan
-
Continue IV Lasix
Remains on oxygen
May need home oxygen and hypoxia might be due to pulmonary etiology
Impression / Plan
-
Primary Dental Laboratory Technology Teacher: none prior to admission, scheduled to see Dr. Elizondo 11/12/24
Assessment:
Presentation with weight gain, LE edema, MUNOZ
Acute HFpEF
Atrial tachycardia
Moderate MR
CKD
PAD, abnormal L IVAN, mod to severe claudication
HTN
HLD
GERD
COPD
Hernia
Anemia
Hypoalbuminemia
ECHO 10/21/24: EF 60 to 65%, mild concentric LVH, stage III diastolic dysfunction, moderately dilated atria, mild MAC, moderate MR, mild TR, PAP 52 mmHg, ascending aorta top normal at 3.7 cm
Plan:
He remains on oxygen
Unclear if due to pulmonary etiology or CHF
He may have reached his dry weight
He might need home oxygen
We will try IV Lasix for another 24 hours
Progress Note - Dental Laboratory Technology Teacher
Subjective
Date of Service: November 04, 2024
No complaints
Objective
Labs:
11/04/24 07:03
11/04/24 07:03
Labs
Hgb 9.7 g/dL (13.0-18.0) L 11/04/24 07:03
Hct 31.1 % (39.0-52.0) L 11/04/24 07:03
Plt Count 249 10^3/uL (130-400) 11/04/24 07:03
Sodium 136 mmol/L (135-145) 11/04/24 07:03
Potassium 3.7 mmol/L (3.5-5.1) 11/04/24 07:03
BUN 45 mg/dl (9-20) H 11/04/24 07:03
Creatinine 1.3 mg/dL (0.7-1.3) 11/04/24 07:03
Glucose 75 mg/dl (70-99) 11/04/24 07:03
Vital Signs and I&O:
Vital Signs
Temp Pulse Resp BP Pulse Ox
97.5 F 85 18 134/68 96
11/04/24 07:00 11/04/24 09:22 11/04/24 09:22 11/04/24 07:00 11/04/24 09:22
Vital Signs
Temp Pulse Resp BP Pulse Ox
97.5 F 85 18 134/68 96
11/04/24 07:00 11/04/24 09:22 11/04/24 09:22 11/04/24 07:00 11/04/24 09:22
Intake & Output
11/02/24 11/03/24 11/04/24 11/05/24
06:59 06:59 06:59 06:59
Intake Total 1920 / 1920 660 / 660 1740 / 1740
Output Total 1800 / 1800 1025 / 1025 1025 / 1025
Balance 120 / 120 -365 / -365 715 / 715
Physical Exam
Physical Exam
General: Well developed, well nourished in NAD.
Neck: Supple, no JVD, HJR, carotids +2 B/L, no bruits bilaterally.
Heart: Non displaced PMI, RRR, no murmurs, No S3, S4, no rubs.
Lungs: Scattered rhonchi
Extremities: No clubbing, cyanosis or edema bilaterally.
Neuro: Grossly nonfocal, awake, alert and oriented x3.
[2024-11-04 11:00] VITALS: BP 141/70
[2024-11-04] MEDS: HYDROPHOR 1 APPLIC TOPICAL (13:26)
--- NOTE | 2024-11-04 13:47 | CM ---
CM reviewed chart, patient seen bedside with . Patient qualifies for home oxygen, patient aware, agreeable to referral to [facility]- faxed to [phone]. Patient requesting referral to [facility] for [facility], referral placed in [facility]. CM
will continue to follow for all discharge planning needs. Per Hospitalist, not stable for discharge today. CM will continue to follow for all discharge planning needs.
Plan; home with Home O2 ([facility]), [facility] VN
[2024-11-04 15:00] VITALS: BP 149/70
--- NOTE | 2024-11-04 16:12 | PTOTSP ---
Video Swallow Examination
Summary: Patient presents with WFL-mild oral stage and mild pharyngeal stage changes, laryngeal penetration (see patient care note), and no aspiration but risk present. Follow strategies below.
Recommend:
1. Regular, Thin
2. Medications: as best tolerated
3. Strategies: single sips, slow rate, breaks for breathing, intermittent throat clear/re-swallow
4. Brief follow up for further instruction in compensations.
[2024-11-04 19:50] VITALS: BP 130/71
[2024-11-04] MEDS: ZOLOFT 25 MG PO (21:38)
[2024-11-04 23:55] VITALS: BP 122/65
[2024-11-05] VITALS: BP 122/65
[2024-11-05 03:45] VITALS: BP 141/72
[2024-11-05 06:00] VITALS: BMI 29.3
[2024-11-05 07:00] VITALS: BP 149/81
[2024-11-05] MEDS: DUONEB 3 ML INH ×3 (07:16→15:18)
[2024-11-05] MEDS: PULMICORT 0.5 MG INH (07:16)
--- NOTE | 2024-11-05 09:31 | W.PN.PUL3 ---
Today's Communication / Plan
-
Goal SpO2 88-95%
Continue diuresis per cardiology
Qualified for home O2 with 2L/min with activity
Diet as per SENIOR ACCOUNTING MANAGER
Continue with prednisone taper (perhaps he was having and acute exacerbation given his initial absolute eosinophil count was 600 and PFT findings from 10/18/2024)
Pt being preapred for DC home. We will follow with him in the office with Dr. Larson - We will now sign off - thank you for allowing us to be involved in the care of this patient.
Assessment
-
84-year-old man with past medical history noted, admitted with progressive shortness of breath. Found to be hypoxemic which is new for him. Abnormal chest x-ray suggestive of heart failure. Also recently diagnosed with COPD and he is a former
smoker. We were consulted on 10/31/2024 for evaluation.
Impression:
Acute hypoxemic respiratory failure pulse ox 83% on room air-progressive shortness of breath. Requiring 3-5 L supplemental oxygen that is new for him, now on 2L/min
Suggest suspect mainly driven by acute HFpEF exacerbation -proBNP 4650.
Chest x-ray10/31/2024: Minimal bilateral pleural effusions, significant pulmonary vascular congestion.
Negative troponin
Echocardiogram 10/21/2024: Normal LVEF. No regional wall motion abnormality. Mild LVH. Stage III diastolic dysfunction, increased filling pressures. Normal RV size and function. Moderately dilated atrium. Moderate MR. Mild TR. Pulmonary
artery pressure 52 mmHg. No pericardial effusion.
Bilateral lower extremity edema with chronic venous stasis dermatitis
Increased eosinophil count (absolute eosinophil count: 600 on admission)
Conditions present prior admission:
COPD (suspect component of asthma given his near normalization of diffusing capacity with alveolar volume, and borderline significant bronchodilator response, plus has eosinophilia on blood work)
Hypertension
Former smoker quit in [id number]-year history
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
Left lower extremity peripheral arterial disease by recent duplex ultrasound
Assessment and plan:
Clinical picture suggest acute onset pulmonary edema, recently seen in the pulmonary office with crackles, lower extremity swelling, echocardiogram was performed and demonstrated diastolic dysfunction with increased filling pressures.
At that time in mid October no oxygen requirements.
Earlier in the morning on 11/01/2024: Increase shortness of breath and also bronchospastic.
Discussed with Dr. Bunn -diuresis given, steroids started.
Seems to have responded to diuresis and steroids well
Chest x-ray from 11/03/2024 somewhat improved, but still with extensive diffuse bilateral interstitial/airspace opacities --> will need repeat imaging as an outpatient
-
Symptoms mainly driven by pulmonary vascular congestion from heart failure with preserved ejection fraction-echocardiogram was noted to have suggestion of increased filling pressures-proBNP significantly elevated
CT chest 11/01/2024: Reviewed small bilateral pleural effusions, increased bilateral reticular interstitial thickening with patchy groundglass opacity. Suspect heart failure but cannot rule out underlying interstitial lung disease such as pulmonary
fibrosis/IPF.
Continue IV diuresis-creatinine is rising, currently 1.5 --> 1.3 and is stable
Discussed with cardiology: Been optimized from the cardiac perspective.
Heart failure education
Agree with ongoing cardiac management. Medication changes noted
-
Moderate to severe COPD by spirometry: Former smoker quit many years ago.
Recently placed on Trelegy by Dr. Larson-not significantly bronchospastic on admission. Restart inhalers upon discharge.
Continue DuoNebs QID
Pulmicort started 11/01/2024 s/p Solu-Medrol started by primary service (given for 3 doses with last dose on 11/02/2024) --> continue prednisone with taper (currently on 30mg daily)
11/01/2024 - edge blacker wheezing. Unclear whether an acute exacerbation versus cardiac wheezing.
No indication for antibiotics.
VSE performed yesterday showed laryngeal penetration with no aspiration seen; SENIOR ACCOUNTING MANAGER recommended regular diet with thin liquids
-
Continue oxygen supplementation
Currently wearing 2L from 5L/min
Check ambulatory pulse oximetry prior to discharge --> checked on 11/04/2024 and he qualified for home O2 with 2L/min with activity
-
There was concern for possible underlying interstitial lung disease in the outpatient setting.
CT chest as above noted. Will need to repeat imaging after he is euvolemic, with repeat to be done in about 6-8 weeks
-
Lower extremity edema with stasis dermatitis
Patient does have hyperalbuminuria as well as proteinuria on UA.
Defer to primary for further evaluation
-
DVT prophylaxis heparin subcu.
-
Pt being prepared for DC home. Follow-up with Dr. Larson after DC. We will now sign off - thank you for allowing us to be involved in the care of this patient.
Patient was seen and evaluated on 11/05/2024
Total time spent today was 35 minutes for this encounter. Time includes reviewing laboratory test/imaging results, reviewing pertinent medical records, obtaining and reviewing medical history, performing an appropriate exam, ordering medications,
tests and procedures. Time also includes documentation of this encounter, coordinating patient care and communicating with other healthcare professionals. Total time does not include separately billed tests performed on this date of service.
Subjective Data
-
Date of Service:
Date of Service: November 05, 2024
Chief Complaint: Pulmonary Follow Up (Acute hypoxemic respiratory failure/COPD/heart failure)
Subjective:
Pt seen this AM on 11/05/2024 - late note entry. He feels well, eager to go home. , Alis, at bedside - all questions were answered. Currently on 2L/min O2 at rest, breathing comfortably. [place] no chest
pain or SOB. Qualified for home O2 with 2L/min with activity via home O2 assessment on 11/04/2024. He currently denies chest pain, BACH, abd pain, N/V/f/c.
Review of Systems
General: Other (negative unless mentioned above)
Objective Data
Data Reviewed
Vital Signs / I&O / Oxygen:
Vital Signs
Temp Pulse Resp BP Pulse Ox
97.6 F 76 18 149/81 94
1231/24 07:00 11/05/24 09:44 11/05/24 08:24 11/05/24 09:44 11/05/24 08:24
Intake and Output
11/04/24 11/05/24 11/06/24
06:59 06:59 06:59
Intake Total 1740 / 1740 1979 / 1979
Output Total 1025 / 1025 700 / 700
Balance 715 / 715 1280 / 1280
SaO2 94
Nasal Cannula flow liters per 2
minute
Physical Exam
General: Respiratory Distress (n), Comfortable, Chills (n) and Sweats (n)
HEENT: Normocephalic and Anicteric
Cardiovascular: S1-S2, Murmur (CHRISSY heard best at RUSB) and Peripheral Edema (negative)
Respiratory: Wheeze (negative), Crackles (Right hemithorax), Rhonchi (negative) and Other (Diminished breath sounds at bases)
GI: Soft, Non Distended, Non Tender and Normal Bowel Sounds
Neurology: AO x 3 and Tremors (negative)
Skin: Warm, Dry, Cyanosis (negative), Jaundice (negative) and Other (Chronic lower extremity venous stasis, improved)
Labs/Micro/Reports
Lab Data
11/04/24 07:03
[2024-11-05] MEDS: PROTONIX 40 MG PO (09:44)
[2024-11-05] MEDS: REFRESH EYE DROPS (PF) 1 DROPS OPHTH ×2 (09:44→13:17)
[2024-11-05] MEDS: DELTASONE 30 MG PO (09:44)
[2024-11-05] MEDS: APRESOLINE 25 MG PO (09:44)
[2024-11-05] MEDS: PLETAL 100 MG PO (09:44)
[2024-11-05] MEDS: DIOVAN 160 MG PO (09:44)
[2024-11-05] MEDS: NORVASC 5 MG PO (09:45)
[2024-11-05] MEDS: COREG 6.25 MG PO (09:45)
[2024-11-05] MEDS: HEPARIN 5000 UNITS SC (09:45)
[2024-11-05] MEDS: LASIX 40 MG IV (09:45)
[2024-11-05] MEDS: HYDROPHOR 1 APPLIC TOPICAL (09:46)
[2024-11-05 10:40] LABS: Blood Urea Nitrogen 39 mg/dl (9-20); Calcium 7.8 mg/dl (8.4-10.2); Carbon Dioxide 37 mmol/L (22-30); Chloride 99 mmol/L (98-107); Estimated Creatinine Clearance 41 ml/min; Glucose 151 mg/dl (70-99); Sodium 135 mmol/L (135-145); eGFR 54.85
[2024-11-05 11:00] VITALS: BP 138/76
--- NOTE | 2024-11-05 11:15 | W.PN.HOSP.TC ---
Today's Communication/Plan
-
Discharge today
Assessment / Plan
Assessment / Plan
Physical Exam
General: Not in acute distress
HEENT: Moist mucous membranes
Respiratory: CTAB
Cardiac: S1/S2. RRR.
GI: Soft, Non Tender and Non Distended. Positive bowel sounds.
Musculoskeletal: No Cyanosis. Edema, Left Lower Extremity and Edema, Right Lower Extremity
Skin: Warm. Dry.
Neuro: AO x 3 and Nonfocal/grossly intact
Psych: Calm and Intact Judgment/Insight
Assessment/Plan
84 years old male presented with progressive shortness of breath
#Acute respiratory distress - IMPROVED SIGNIFICANTLY//acute hypoxic respiratory failure. Due to Acute on chronic heart failure with preserved ejection fraction + COPD exacerbation
#Exacerbation of HFpEF
#Acute COPD exacerbation
#Increased eosinophil count (absolute eosinophil count: 600 on admission)
CT chest seems c/w ILD/ Fibrosis or diffuse interstitial pneumonitis
Procalcitonin negative
Status post IV Lasix in the hospital
On discharge, do Lasix 40 mg daily
c/w nebulizer
s/p IV Steroid, changed to oral: continue PO Prednisone taper
Home goal SpO2 is 88% to 95%
c/w Hydralazine
Coreg was added
Continue Incentive Spirometer
Recent echocardiogram in October 2024 showed LVEF 60 to 65% with diastolic heart dysfunction, moderate mitral regurgitation, mild TR, estimated pulmonary artery pressure of 52 mmHg. Mild concentric LVH.
Appreciate pulmonary & cardiology input
VSE completed, continue regular texture and thin liquids diet
Needs repeat chest imaging after patient is euvolemic, with repeat to be done in about 6-8 weeks -- will need to coordinate with outpatient pulmonary
#Hyponatremia - RESOLVED
#Hypertension
-Patient takes amlodipine, atenolol, Diovan and hydrochlorothiazide.
-Currently on high-dose IV furosemide, Amlodipine, Coreg, hydralazine, Diovan
#Bilateral lower extremity stasis dermatitis. Consistent with peripheral edema/ dermatitis. per pt, developed over last few months.
#Acute kidney injury , suspect underlying CKD stage IIIA
Per family OP blood work showed renal function impairment
c/w Diuretic TX and monitor renal function/ weight and retention
Renal US showed Renal cortical thinning on each side, consistent with medical renal disease, no hydronephrosis on either side.
#Proteinuria/Albuminuria
#Microscopic Hematuria
-Follow-up with PCP
#Hypoalbuminemia
#Former smoker quit in [id number]-year history
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
#Left lower extremity peripheral arterial disease by recent duplex ultrasound
-Follow-up with PCP outpatient
DVT prophylaxis: Heparin subq
More than 30 minutes spent in discharge including
Final examination of the patient
Summarizing hospital stay
Instructions for continuing care to all relevant caregivers
Preparation of discharge records, prescriptions, and referral forms
Total time spent (in minutes): 40
Anticipated Discharge: Today
Subjective/Interval History
-
Date of Service: November 05, 2024
Patient was seen and examined. He denied any chest pain or shortness of breath. He is looking forward to leaving the hospital today.
Objective Data
-
Labs:
Laboratory Results
11/05/24
09:59
Sodium 135
Potassium 4.0
Chloride 99
Carbon Dioxide 37 H
BUN 39 H
Creatinine 1.3
Glucose 151 H
Calcium 7.8 L
Vital Signs:
Vital Signs
Temp Pulse Resp BP Pulse Ox
97.6 F 76 18 149/81 94
11/05/24 07:00 11/05/24 09:44 11/05/24 08:24 11/05/24 09:44 11/05/24 08:24
I&O
11/04/24 11/05/24 11/06/24
06:59 06:59 06:59
Intake Total 1740 / 1740 1979 / 1979
Output Total 1025 / 1025 700 / 700
Balance 715 / 715 1280 / 1280
--- NOTE | 2024-11-05 11:24 | W.PN.CARDCBS ---
Today's Communication / Plan
-
Lasix 40 mg daily
Outpt cardiac follow up.
Impression / Plan
-
Primary Billet Checker: none prior to admission, scheduled to see Dr. Elizondo 11/12/24
Impression:
Presentation with weight gain, LE edema, MUNOZ
Acute HFpEF
Atrial tachycardia
Moderate MR
CKD
PAD, abnormal L IVAN, mod to severe claudication
HTN
HLD
GERD
COPD
Hernia
Anemia
Hypoalbuminemia
ECHO 10/21/24: EF 60 to 65%, mild concentric LVH, stage III diastolic dysfunction, moderately dilated atria, mild MAC, moderate MR, mild TR, PAP 52 mmHg, ascending aorta top normal at 3.7 cm
Plan:
He remains on oxygen. Home O2 set up.
His dyspnea is likely multifactorial.
Pulm following as well.
Monitor daily wts at home.
He already has follow up visit set up with cardiology.
Lasix 40 mg daily at d/c. This may need to be further titrated.
Cr stable.
Discussed with family at bedside.
Discussed with nursing.
Discussed with primary service.
Progress Note - Billet Checker
Subjective
Date of Service: November 05, 2024
Pt seen and examined. No complaints. No chest pain or shortness of breath.
Objective
Labs:
11/04/24 07:03
11/05/24 09:59
Labs
Hgb 9.7 g/dL (13.0-18.0) L 11/04/24 07:03
Hct 31.1 % (39.0-52.0) L 11/04/24 07:03
Plt Count 249 10^3/uL (130-400) 11/04/24 07:03
Sodium 135 mmol/L (135-145) 11/05/24 09:59
Potassium 4.0 mmol/L (3.5-5.1) 11/05/24 09:59
BUN 39 mg/dl (9-20) H 11/05/24 09:59
Creatinine 1.3 mg/dL (0.7-1.3) 11/05/24 09:59
Glucose 151 mg/dl (70-99) H 11/05/24 09:59
Vital Signs and I&O:
Vital Signs
Temp Pulse Resp BP Pulse Ox
97.6 F 76 18 149/81 94
11/05/24 07:00 11/05/24 09:44 11/05/24 08:24 11/05/24 09:44 11/05/24 08:24
Vital Signs
Temp Pulse Resp BP Pulse Ox
97.6 F 76 18 149/81 94
11/05/24 07:00 11/05/24 09:44 11/05/24 08:24 11/05/24 09:44 11/05/24 08:24
Intake & Output
11/03/24 11/04/24 11/05/24 11/06/24
06:59 06:59 06:59 06:59
Intake Total 660 / 660 1740 / 1740 1979 / 1979
Output Total 1025 / 1025 1025 / 1025 700 / 700
Balance -365 / -365 715 / 715 1280 / 1280
Physical Exam
Physical Exam
General: No acute distress, AAOX3
Neck: Negative JVD
Heart: Regular, Negative S3 positive S1/S2, Negative S4, No murmur
Lungs: CTA b/l, negative wheezes/rales/rhonchi
Abd: Positive BS, NT/ND, neg rebound/rigidity/guarding
Ext: Negative cyanosis/clubbing/edema
Neuro: nonfocal
--- NOTE | 2024-11-05 11:31 | CM ---
Patient seen bedside with son and . O2 delivered by [facility] to bedside yesterday. CM spoke with Annel from [facility], updated on potential discharge. IMM reviewed verbally, provided with copy, placed in chart. Son will provide
transportation home. CM will continue to follow for all discharge planning needs.
Plan; home with family, Chandana ABEL, Home O2 ([facility])
Chandana ABEL
[2024-11-05 15:00] VITALS: BP 142/71
--- NOTE | 2024-11-05 15:06 | W.DCSUMMARY ---
Discharge Summary
Discharge Data
Date of Admission: 10/31/24
Date of Discharge: 11/05/24
Total time spent discharging patient (in min): 40
-
Pending Results: No
Hospital Course
84 y/o male who presented with shortness of breath. Patient was started on intravenous diuresis for acute heart failure. Cardiology and Pulmonary were consulted. Patient's outpatient hydrochlorothiazide was stopped, and patient's Atenolol was
replaced with Carvedilol for better blood pressure control. Patient was placed on steroids which were transitioned to oral. Patient was doing better and stable for discharge with home oxygen.
Discharge Plan
-
Patient Disposition: Home with Home Care
Discharge Diagnosis/Procedures: #Pulmonary Edema
#Pleural Effusion
#Acute respiratory distress - acute hypoxic respiratory failure -- IMPROVED SIGNIFICANTLY due to Acute on chronic heart failure with preserved ejection fraction + COPD exacerbation
#Exacerbation of Heart Failure with Preserved Ejection Fraction
#Acute COPD exacerbation
#Increased eosinophil count (absolute eosinophil count: 600 on admission)
#Hyponatremia - RESOLVED
#Hypertension
#Bilateral lower extremity stasis dermatitis. Consistent with peripheral edema/ dermatitis - chronic
#Acute kidney injury, concern for underlying CKD stage IIIA
#Proteinuria/Albuminuria
#Microscopic Hematuria
#Hypoalbuminemia
#Former smoker quit in [id number]-year history
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
#Left lower extremity peripheral arterial disease by recent duplex ultrasound
CT Chest without contrast (as per radiologist's report)
'1. Bilateral reticular interstitial thickening, thickening of the intralobular septae, and extensive groundglass opacity. Differential diagnosis includes pulmonary edema, interstitial pneumonitis, and multifocal pneumonia. Underlying interstitial
fibrosis may also be present. Consider follow-up CT chest following resolution of the current symptoms.
2. Small bilateral pleural effusions, right greater than left. Fissural fluid on each side.
3. Calcified mediastinal and hilar lymphadenopathy, likely related to granulomatous disease.
4. Mild coronary arterial calcification. Please correlate with symptoms of and risk factors for coronary artery disease, with further workup as clinically appropriate.'
Renal Ultrasound (as per radiologist's report)
'1. Renal cortical thinning on each side, consistent with medical renal disease.
2. No hydronephrosis on either side.'
Condition: Fair
Diet: Low Fat, Low Cholesterol, Low Sodium and Restrict fluids to 64 oz
Additional Diets: Any ingested liquids should be THIN liquids.
Activity: As tolerated
Other Services: VN
Specialty Instructions: Weigh Daily- Call MD for wt gain/loss 3 lbs overnight/5 lbs in 1 week
Activity Restrictions/Additional Instructions:
The intellectual property legal assistant team would like to wean off your Amlodipine as soon as possible -- please follow-up with intellectual property legal assistant for your appointment in about a week to discuss this with them.
Goal home oxygen saturation is 88% to 95% -- monitor your home oxygen saturations with a pulse oximeter to make sure your oxygen does not drop to less than this range.
You need repeat chest imaging done in about 6 to 8 weeks; you will need to coordinate this with outpatient pulmonary.
Instructions: *CBC Heart Failure Instructions
Referrals:
Star Larson MD [Active] - 11/21/24 9:45 am
Abad Chung Jr., DO [Family Provider] - in less than 1 week
Ervin Elizondo DO [Active] - 11/12/24 11:20 am
Additional Discharge Medication Instructions: Carvedilol, Furosemide, Hydralazine and Prednisone Taper are new medications.
Atenolol stopped.
Valsartan-Hydrochlorothiazide switched to Valsartan ONLY (no more hydrochlorothiazide).
Prescriptions:
New
hydralazine 25 mg Tablet
25 mg PO BID Qty: 60 1RF
carvedilol 6.25 mg Tablet
6.25 mg PO BID Qty: 60 1RF
valsartan 160 mg Tablet
160 mg PO DAILY Qty: 30 1RF
prednisone 10 mg Tablet
30 mg PO DAILY Qty: 9 0RF
Rx Instructions:
Starting on 25: 20 mg/d x3 days; followed by 10 mg/d x3 days
furosemide 40 mg tablet
40 mg PO DAILY Qty: 30 1RF
Continued
cilostazol 100 mg Tablet
100 mg PO BID
amlodipine [Norvasc] 5 mg Tablet
5 mg PO DAILY
sertraline 25 mg Tablet
25 mg PO HS
Refresh Optive 0.5-0.9 % Drops
1 drp BOTH EYES TID
omeprazole 20 mg Tablet,Delayed Release (Dr/Ec)
20 mg PO DAILY
Trelegy Ellipta 100-62.5-25 mcg Blister With Device
1 inh INHALATION R DAILY
Discontinued
atenolol 25 mg Tablet
25 mg PO DAILY
valsartan-hydrochlorothiazide 320-12.5 mg Tablet
1 tab PO DAILY
Discharge Orders:
Discharge Patient (As Directed); Ordered 11/05/24
Ordered By: Patel Souza
Discharge Date and Time
Discharge Date/Time: 11/05/24 17:57
Print Language: PERSIAN
== END 2024-11-05 17:57 | disposition home health service (06) | DRG 291 ==
LOC: 4 WEST ACU 13:06
PROVIDERS: Emergency Medicine; Internal Medicine Cardiovascular Disease; Physician Assistant; ADMITTING PHYSICIAN Internal Medicine; ATTENDING PHYSICIAN Hospitalist; CONSULT PHYSICIAN Internal Medicine Critical Care Medicine; EMERGENCY PHYSICIAN Student in an Organized Health Care Education/Training Program; FAMILY PHYSICIAN Family Medicine; OTHER PHYSICIAN Internal Medicine Cardiovascular Disease
DX: I13.0 Hypertensive heart and chronic kidney disease with heart failure and stage 1 through stage 4 chronic kidney disease, or unspecified chronic kidney disease (principal); I50.33 Acute on chronic diastolic (congestive) heart failure; J96.01 Acute respiratory failure with hypoxia; N17.9 Acute kidney failure, unspecified; J44.1 Chronic obstructive pulmonary disease with (acute) exacerbation; J84.9 Interstitial pulmonary disease, unspecified; I47.19 Other supraventricular tachycardia; E87.1 Hypo-osmolality and hyponatremia; I87.2 Venous insufficiency (chronic) (peripheral); I27.20 Pulmonary hypertension, unspecified; N18.31 Chronic kidney disease, stage 3a; R31.29 Other microscopic hematuria; E86.1 Hypovolemia; E78.5 Hyperlipidemia, unspecified; E88.09 Other disorders of plasma-protein metabolism, not elsewhere classified; K21.9 Gastro-esophageal reflux disease without esophagitis; D71 Functional disorders of polymorphonuclear neutrophils; R59.0 Localized enlarged lymph nodes; I73.9 Peripheral vascular disease, unspecified; D64.9 Anemia, unspecified; Z77.090 Contact with and (suspected) exposure to asbestos; Z87.891 Personal history of nicotine dependence; Z82.3 Family history of stroke; Z79.51 Long term (current) use of inhaled steroids; Z57.2 Occupational exposure to dust
CPT/HCPCS: 71045; 71046; 71250; 74230; 76775; 80048; 80053; 80061; 81003; 81015; 82040; 82570; 82728; 83036; 83540; 83550; 83735; 83880; 84145; 84156; 84484; 85025; 85027; 92610; 92611; 93005; 94640; 96374; 97163; 97166; 99291

== ENCOUNTER 2024-11-14 16:17 | Inpatient (IN) | payer MEDICARE, SELFPAY ==
[2024-11-14] VITALS (8 sets, daily range): BP systolic 140–163; BP diastolic 67–80; BMI 29.2; BMI 28.5
--- NOTE | 2024-11-14 12:23 | ED.GENMED ---
ED Provider Triage
<ROCHELLE Green - Last Filed: 11/14/24 12:29>
-
Patient seen by provider in Triage?: Seen in Triage
Attestation: A medical screening examination has been initiated by a qualified medical provider. Based on the assessment performed at this time, it has been determined that an emergent medical condition may exist and the patient has been informed
that further medical evaluation and possible additional diagnostic testing may be needed.
HPI:
84 yr old male presents to the ED for l/e swelling and SOB . Pt was recently d/c on Nov 05 (adm with chf) Pt is on currently on Lasix 80 mg BID (took one dose today).
Pt is normally on [place] Oxygen to sleep only however [facility] nurse placed pt on Oxygen this am. Pt c/o of swelling up to upper legs/testicles.
Pt is on 48 ounces fluid restriction.
pt feeling slightly better on Oxygen now. no cp no fever. no recent illness.
GENERAL: Alert , in no apparent distress
EYE: No visual abnormalities.
NECK: Trachea midline
ENT: No visible abnormalities.
LUNGS: No acute respiratory distress
NEUROLOGICAL: Alert and oriented
SKIN: Skin intact. No visible changes.
MUSCULOSKELETAL: Moving extremities normally
PSYCH: Normal and appropriate interaction.
This is a medical evaluation conducted in person to initiate diagnostic evaluation and provide initial therapeutics. Please see further documentation by the treating clinician.
History of Present Illness
<ROCHELLE Green - Last Filed: 11/14/24 12:29>
General
Chief Complaint: Swelling
Time Seen by Provider: 11/14/24 14:55
<Pricilla Sadler PA-C - Last Filed: 11/14/24 18:07>
General
Source: patient, records and family
Exam Limitations: none
History of Present Illness
History of Present Illness:
84yoM with a history of CHF, hypertension, hyperlipidemia presenting with his family members for evaluation of shortness of breath. Patient was recently hospitalized for a CHF exacerbation and was discharged on 11/05/2024. He started to have
worsening shortness of breath and leg swelling over the past week. He was seen by his tailman who increased his Lasix from 40 mg daily to 40 mg twice daily a few days ago. Despite this, patient continues to worsen. He has gained over 10
pounds since discharge. He also reports penile and scrotal edema. Son is worried that he is not urinating enough.
Past History
<ROCHELLE Green - Last Filed: 11/14/24 12:29>
Past History
ED Past Medical History: CHF and HTN
ED Past Surgical History: None
Social History
Tobacco: Non-smoker
Alcohol: None
Phy Exam
<Pricilla Sadler PA-C - Last Filed: 11/14/24 18:07>
General Physical Exam
General Presentation: no apparent distress
General Skin: warm and dry
General Habitus: normal and elderly
General Mental: alert
ENT Exam
ENT Exam: normocephalic
Cardiovascular Exam
Cardiovascular Exam: regular rate/rhythm and other (1+ pitting edema to bilateral lower extremities)
Pulmonary Exam
Pulmonary Exam: no respiratory distress and other (Bibasilar rales, R>L)
Genitourinary Exam Male
Exam Male: other (Significant scrotal/penile edema noted)
Neurological Exam
Neurological Exam: alert
[place] Coma Scale
Eye Opening: Spontaneous
Verbal Response: Oriented
Motor Response: Obeys Commands
GCS Total Score: 15
Skin Exam
Skin Exam: normal color and warm/dry
Psychiatric Exam
Psychiatric Exam: normal mood/affect
Scores
<Pricilla Sadler PA-C - Last Filed: 11/14/24 18:07>
Heart Failure Risk
Heart Failure Risk Score: Not Applicable
Course
<ROCHELLE Green - Last Filed: 11/14/24 12:29>
Orders/Labs/Results
Orders:
Orders
11/14/24 12:27
Chest [CR Chest - 2 Views ] Urgent
Comment:
Reason For Exam: sob
11/14/24 12:28
Electrocardiogram (*1) Stat
Reason for Study: Other
Other Reason for Exam: chest pain
EKG- Treatment ONCE
11/14/24 12:36
Complete Blood Count/With Diff Urgent
Comprehensive Metabolic Panel Urgent
NT-proBNP Urgent
Troponin I Urgent
11/14/24 Dinner
Cholesterol Lowering
At Your Request: Full Participation
Fluid Restriction: 1200 mL/day (40 oz)
Cholesterol Lowering: Sodium, 2 Gram
11/14/24 15:13
Bladder Scan- Treatment ONCE
Furosemide [Lasix] 80 mg IV NOW STA
11/14/24 16:05
Admit/Transfer Patient As Directed
Co-Sign Provider:
Level of Care: Inpatient admission
Assign to:: Telemetry
Physician / Group: Kevin Raymundo
Diagnosis: acuate on chronic CHF
Reason for Telemetry: Acute Heart Failure
Date to Stop Telemetry: 11/17/24
Time to Stop Telemetry: 11:00
Reason for Hospitalization: acuate on chronic CHF
Expected length of stay greater than two midnights?: Yes
ELOS- Estimated Length of Stay in days: 3
I certify the patient meets the requirements for IP care: Yes
11/14/24 16:06
PRN Pain Medication Management As Directed
May give lesser potent ordered pain med per pt: Yes
preference::
Protocol:: Medication orders for pain may be administered in a
manner that supports deferring to patient preference
when the pt is:
- Requesting an ordered lesser potent pain medication.
Least to most potent pain medications are defined
as: acetaminophen < NSAID < tramadol < opioids
(morphine, oxycodone, hydromorphone).
- Requesting a lesser dose of the same medication IF
ORDERED.
- Requesting a less intrusive route of administration
if both routes are prescribed by the provider (PO <
IV).
11/14/24 16:07
Code Status As Directed
Resuscitation Status: Full Code
11/14/24 16:38
CARDIOLOGY CONSULT Routine
Consulting Provider: Chin Gunderson
Was physician already notified: Yes
HF DIETARY CONSULT Routine
HF EDUCATOR CONSULT Routine
Comment:
Activity As Directed
Activity Level: Out of Bed-Early Mobility
Intake/ Output As Directed
Frequency: Per unit guidelines
Patient Education As Directed
Type: CHF folder
Comment: give on admission. Document in Interdisciplinary Education record
Sleep Apnea Assessment by RN As Directed
Comment:
Physician Instructions:
Vital Signs As Directed
Frequency: Other
Additional Instructions:: Q12 or per unit guidelines if more frequent.
Weight As Directed
Frequency: Daily
Type of Scale: Standing Scale
Comment: Daily morning weight. If unable to stand, use balanced bed scale.
Weight As Directed
Frequency: Once
Type of Scale: Standing Scale
Comment: Upon Admission. If unable to stand, use balanced bed scale.
O2 Therapy [RESP] Routine
Titrate/Wean O2 to maintain O2 sat greater than (%): 93
Pulse Ox/cont/shift [RESP] Routine
Quantity: 1
Special Instructions: Daily pulse oximetry at rest. If greater than 92% at rest also obtain pulse oximetry
while ambulating as tolerated.
DX Deep Vein Thrombosis Video Routine
11/14/24 20:00
Carvedilol [Coreg] 6.25 mg PO BID
Cilostazol [Pletal] 100 mg PO BID
HydrALAZINE [Apresoline] 25 mg PO BID
11/14/24 22:00
Sertraline HCl [Zoloft] 25 mg PO HS
carboxymethylcellulose-glycern [Refresh Optive] 1 drop BOTH EYES TID
11/15/24 00:00
Heparin 5,000 units SC Q8
11/15/24 06:00
Basic Metabolic Panel IN AM
Cardiovascular Evaluation IN AM
Complete Blood Count/No Diff IN AM
11/15/24 08:00
Amlodipine [Norvasc] 5 mg PO DAILY
Furosemide [Lasix] 40 mg PO BID AT 0800,1600
Valsartan [Diovan] 160 mg PO DAILY
waxcpvqixxu-gritpnnff-jmzgosgy [Trelegy Ellipta] 1 inh INH R DAILY
omeprazole 20 mg PO DAILY
11/16/24 06:00
Basic Metabolic Panel IN AM
Complete Blood Count/No Diff IN AM
11/17/24 06:00
Basic Metabolic Panel IN AM
Complete Blood Count/No Diff IN AM
11/17/24 11:00
DC Protocol for Telemetry ONCE
Abnormal Lab Results
11/14/24
12:36
RBC 4.25 L 10^6/uL
(4.70-6.10)
Hgb 11.1 L g/dL
(13.0-18.0)
Hct 34.6 L %
(39.0-52.0)
MCH 26.1 L pg
(27.0-31.0)
MCHC 32.1 L g/dL
(33.0-37.0)
RDW 17.6 H %
(11.5-14.5)
Absolute Monos (auto) 1.2 H 10^3/uL
(0.1-0.6)
Lymphocytes % 16.9 L %
(20.5-51.1)
Monocytes % 12.6 H %
(1.7-9.3)
Eosinophils % 6.5 H %
(0-6)
Carbon Dioxide 32 H mmol/L
(22-30)
BUN 32 H mg/dl
(9-20)
Creatinine 1.4 H mg/dL
(0.7-1.3)
Glucose 127 H mg/dl
(70-99)
Calcium 7.4 L mg/dl
(8.4-10.2)
Troponin I 0.042 H* ng/ml
Total Protein 4.6 L g/dl
(6.3-8.2)
Albumin 1.8 L g/dl
(3.5-5.0)
11/14/24 12:36
11/14/24 12:36
Vital Signs
Initial and Last Documented VS:
Initial Vital Signs
Temp Pulse Resp BP Pulse Ox
98.5 F 73 20 141/71 93
11/14/24 12:23 11/14/24 12:23 11/14/24 12:23 11/14/24 12:23 11/14/24 12:23
Last Documented Vital Signs
Temp Pulse Resp BP Pulse Ox
98.5 F 70 27 153/77 97
11/14/24 12:23 11/14/24 16:02 11/14/24 15:45 11/14/24 16:02 11/14/24 15:55
Vasyllt;Pricilla Sadler PA-C - Last Filed: 11/14/24 18:07>
Orders/Labs/Results
Orders:
Orders
11/14/24 12:27
Chest [CR Chest - 2 Views ] Urgent
Comment:
Reason For Exam: sob
11/14/24 12:28
Electrocardiogram (*1) Stat
Reason for Study: Other
Other Reason for Exam: chest pain
EKG- Treatment ONCE
11/14/24 12:36
Complete Blood Count/With Diff Urgent
Comprehensive Metabolic Panel Urgent
NT-proBNP Urgent
Troponin I Urgent
11/14/24 Dinner
Cholesterol Lowering
At Your Request: Full Participation
Fluid Restriction: 1200 mL/day (40 oz)
Cholesterol Lowering: Sodium, 2 Gram
11/14/24 15:13
Bladder Scan- Treatment ONCE
Furosemide [Lasix] 80 mg IV NOW STA
11/14/24 16:05
Admit/Transfer Patient As Directed
Co-Sign Provider:
Level of Care: Inpatient admission
Assign to:: Telemetry
Physician / Group: Kevin Raymundo
Diagnosis: acuate on chronic CHF
Reason for Telemetry: Acute Heart Failure
Date to Stop Telemetry: 11/17/24
Time to Stop Telemetry: 11:00
Reason for Hospitalization: acuate on chronic CHF
Expected length of stay greater than two midnights?: Yes
ELOS- Estimated Length of Stay in days: 3
I certify the patient meets the requirements for IP care: Yes
11/14/24 16:06
PRN Pain Medication Management As Directed
May give lesser potent ordered pain med per pt: Yes
preference::
Protocol:: Medication orders for pain may be administered in a
manner that supports deferring to patient preference
when the pt is:
- Requesting an ordered lesser potent pain medication.
Least to most potent pain medications are defined
as: acetaminophen < NSAID < tramadol < opioids
(morphine, oxycodone, hydromorphone).
- Requesting a lesser dose of the same medication IF
ORDERED.
- Requesting a less intrusive route of administration
if both routes are prescribed by the provider (PO <
IV).
11/14/24 16:07
Code Status As Directed
Resuscitation Status: Full Code
11/14/24 16:38
CARDIOLOGY CONSULT Routine
Consulting Provider: Chin Gunderson
Was physician already notified: Yes
HF DIETARY CONSULT Routine
HF EDUCATOR CONSULT Routine
Comment:
Activity As Directed
Activity Level: Out of Bed-Early Mobility
Intake/ Output As Directed
Frequency: Per unit guidelines
Patient Education As Directed
Type: CHF folder
Comment: give on admission. Document in Interdisciplinary Education record
Sleep Apnea Assessment by RN As Directed
Comment:
Physician Instructions:
Vital Signs As Directed
Frequency: Other
Additional Instructions:: Q12 or per unit guidelines if more frequent.
Weight As Directed
Frequency: Daily
Type of Scale: Standing Scale
Comment: Daily morning weight. If unable to stand, use balanced bed scale.
Weight As Directed
Frequency: Once
Type of Scale: Standing Scale
Comment: Upon Admission. If unable to stand, use balanced bed scale.
O2 Therapy [RESP] Routine
Titrate/Wean O2 to maintain O2 sat greater than (%): 93
Pulse Ox/cont/shift [RESP] Routine
Quantity: 1
Special Instructions: Daily pulse oximetry at rest. If greater than 92% at rest also obtain pulse oximetry
while ambulating as tolerated.
DX Deep Vein Thrombosis Video Routine
11/14/24 20:00
Carvedilol [Coreg] 6.25 mg PO BID
Cilostazol [Pletal] 100 mg PO BID
HydrALAZINE [Apresoline] 25 mg PO BID
11/14/24 22:00
Sertraline HCl [Zoloft] 25 mg PO HS
carboxymethylcellulose-glycern [Refresh Optive] 1 drop BOTH EYES TID
11/15/24 00:00
Heparin 5,000 units SC Q8
11/15/24 06:00
Basic Metabolic Panel IN AM
Cardiovascular Evaluation IN AM
Complete Blood Count/No Diff IN AM
11/15/24 08:00
Amlodipine [Norvasc] 5 mg PO DAILY
Furosemide [Lasix] 40 mg PO BID AT 0800,1600
Valsartan [Diovan] 160 mg PO DAILY
[id number]-cblhqazrc-xbiskvzx [Trelegy Ellipta] 1 inh INH R DAILY
omeprazole 20 mg PO DAILY
11/16/24 06:00
Basic Metabolic Panel IN AM
Complete Blood Count/No Diff IN AM
11/17/24 06:00
Basic Metabolic Panel IN AM
Complete Blood Count/No Diff IN AM
11/17/24 11:00
DC Protocol for Telemetry ONCE
Abnormal Lab Results
11/14/24
12:36
RBC 4.25 L 10^6/uL
(4.70-6.10)
Hgb 11.1 L g/dL
(13.0-18.0)
Hct 34.6 L %
(39.0-52.0)
MCH 26.1 L pg
(27.0-31.0)
MCHC 32.1 L g/dL
(33.0-37.0)
RDW 17.6 H %
(11.5-14.5)
Absolute Monos (auto) 1.2 H 10^3/uL
(0.1-0.6)
Lymphocytes % 16.9 L %
(20.5-51.1)
Monocytes % 12.6 H %
(1.7-9.3)
Eosinophils % 6.5 H %
(0-6)
Carbon Dioxide 32 H mmol/L
(22-30)
BUN 32 H mg/dl
(9-20)
Creatinine 1.4 H mg/dL
(0.7-1.3)
Glucose 127 H mg/dl
(70-99)
Calcium 7.4 L mg/dl
(8.4-10.2)
Troponin I 0.042 H* ng/ml
Total Protein 4.6 L g/dl
(6.3-8.2)
Albumin 1.8 L g/dl
(3.5-5.0)
11/14/24 12:36
11/14/24 12:36
Vital Signs
Initial and Last Documented VS:
Initial Vital Signs
Temp Pulse Resp BP Pulse Ox
98.5 F 73 20 141/71 93
11/14/24 12:23 11/14/24 12:23 11/14/24 12:23 11/14/24 12:23 11/14/24 12:23
Last Documented Vital Signs
Temp Pulse Resp BP Pulse Ox
98.5 F 70 27 153/77 97
11/14/24 12:23 11/14/24 16:02 11/14/24 15:45 11/14/24 16:02 11/14/24 15:55
Vasyllt;Pricilla Sadler PA-C - Last Filed: 11/14/24 18:07>
MDM/Problems Addressed
Differential Diagnosis Includes:
84yoM here with SOB, increased leg swelling/abdominal distention, and weight gain. Hx of CHF and recently admitted for CHF exacerbation. Dose of Lasix was increased from 40mg daily to 40mg BID a few days ago without improvement. VSS. He is in no
distress on exam. 1+ pitting edema to the lower extremities and large amount of scrotal and penile edema noted. Differential diagnosis includes but is not limited to: anasarca, CHF exacerbation, cardiorenal syndrome
Labs obtained in triage. Troponin elevated at 0.042. No ischemic changes on EKG. BNP slightly improved from prior. Renal function at baseline. Pulmonary edema seen on CXR which also appears improved from prior. 80mg IV Lasix ordered and he was
admitted for further management.
<Pricilla Sadler PA-C - Last Filed: 11/14/24 18:07>
*EKG
Interpreted by ED Provider?: Yes
EKG Intrepretation Date: 11/14/24
Heart Rate: 73
Rate: normal
Rhythm: sinus
[place]: normal axis
Interval: normal interval
QRS Pattern: normal QRS
Ischemia: no ischemia
*Critical Care Note
Total Time (30-74mins, 75-104mins- exclusive of procedures): Not Applicable
ED Attending Note
<ROCHELLE Green - Last Filed: 11/14/24 12:29>
-
Portions of this chart may have been created with voice recognition software.� Occasional wrong word or��sound alike� substitutions may have occurred due to the inherent limitations of voice recognition software.
Discharge Plan
Departure
Patient Disposition: Admit
Date of Disposition: 11/14/24
Time of Disposition: 15:18
Presentation/result/management discussed w/ accepting MD/DO: Hospitalist
Discharge Problem:
Acute exacerbation of CHF (congestive heart failure)
Interventions
Interventions:
*Risk Screen - Suicide Last Done: 11/14/24 12:23
*General Assessment Last Done: 11/14/24 12:23
*Neglect/Abuse Screening Last Done: 11/14/24 12:23
ED- Fall Risk Assessment Last Done: 11/14/24 15:56
*ED COVID-19 Vaccine History Last Done: 11/14/24 12:23
ED- Cardiac Assessment Last Done: 11/14/24 15:55
ED- Pulmonary Assessment Last Done: 11/14/24 15:55
ED-Skin Assessment Last Done: 11/14/24 15:55
[2024-11-14 13:04] LABS: % Basophils 0.4 % (0-2); % Eosinophils 6.5 % (0-6); % Immature Granulocytes 0.3 % (0-0.5); % Lymphocytes 16.9 % (20.5-51.1); % Monocytes 12.6 % (1.7-9.3); % Neutrophils 63.3 % (42.2-75.2); Absolute Eosinophils 0.6 10^3/uL (0-0.7); Absolute Lymphocytes 1.7 10^3/uL (1.2-3.4); Absolute Monocytes 1.2 10^3/uL (0.1-0.6); Absolute Neutrophils 6.2 10^3/uL (1.4-6.5); Hematocrit 34.6 % (39.0-52.0); Hemoglobin 11.1 g/dL (13.0-18.0); Mean Corp Hgb Conc. 32.1 g/dL (33.0-37.0); Mean Corpuscular Hgb 26.1 pg (27.0-31.0); Mean Corpuscular Volume 81.4 fL (80.0-94.0); Mean Platelet Volume 10.3 fL (7.4-10.4); Nucleated Red Blood Cells % 0 % (-); Platelet Count 178 10^3/uL (130-400); Red Blood Cell Count 4.25 10^6/uL (4.70-6.10); Red Cell Dist. Width 17.6 % (11.5-14.5); White Blood Cell Count 9.8 10^3/uL (4.8-10.8)
[2024-11-14 13:06] LABS: ALT (SGPT) 27 U/L (0-50); AST (SGOT) 29 U/L (17-59); Albumin 1.8 g/dl (3.5-5.0); Alkaline Phosphatase 123 U/L (38-126); Blood Urea Nitrogen 32 mg/dl (9-20); Calcium 7.4 mg/dl (8.4-10.2); Carbon Dioxide 32 mmol/L (22-30); Chloride 103 mmol/L (98-107); Glucose 127 mg/dl (70-99); Potassium 3.9 mmol/L (3.5-5.1); Sodium 135 mmol/L (135-145); Total Bilirubin 0.2 mg/dl (0.2-1.3); Total Protein 4.6 g/dl (6.3-8.2); eGFR 50.18
[2024-11-14 13:23] LABS: NT-proBNP 3890 pg/ml; Troponin I 0.042 ng/ml
--- NOTE | 2024-11-14 15:26 | HPS.HSE ---
Family Physician
-
Family Physician: Abad Chung
Chief Complaint
-
weight gain
History of Present Illness
Patient is a 84-year-old male with past medical history significant for HFpEF, COPD, hypertension, CKD III, and depression who presented to [facility] ED for evaluation of 12 pound weight gain over past 10 days. Patient discharged 11/05/2024 for HF
exacerbation and since returning home has followed dietary and fluid restrictions as well as take lasix as ordered and has seen a 12 pound weight gain. Patient denies any fever, chills, cough, shortness of breath, chest pain, nausea, vomiting,
constipation, diarrhea or urinary symptoms.
Medical History
Past Medical History
Past Medical History: Reports Other
Additional Past Medical History:
HFpEF
COPD
hypertension
CKD III
depression
Past Surgical History: Reports None
Social History
Tobacco: Former Smoker
Alcohol: Occasional
Drug: None
Personal:
Living: With Family
Employment: Retired
Family History
Family History: Not pertinent
Allergies / Home Medications
Allergies reflects when Allergies were last updated in [email or web address].
Home Medications with original date entered in [email or web address]
Allergy/Medication List:
Allergies
Allergy/AdvReac Type Severity Reaction Status Date / Time
No Known Allergies Allergy Verified 11/14/24 12:26
Home Medications
amlodipine 5 mg tablet (Norvasc) 5 mg PO DAILY Blood Pressure 10/31/24
carboxymethylcellulose 0.5 %-glycerin 0.9 % eye drops (Refresh Optive) 1 drp BOTH EYES TID Eye Condition 10/31/24
cilostazol 100 mg tablet 100 mg PO BID Blood Clot Prevention/Tx 10/31/24
fluticasone fur. 100 mcg-umeclid 62.5 mcg-vilant 25 mcg inhalat.powder (Trelegy Ellipta) 1 inh inhalation R DAILY Lung/Breathing Issues 10/31/24
omeprazole 20 mg tablet,delayed release 20 mg PO DAILY Gastrointestinal Issue 10/31/24
sertraline 25 mg tablet 25 mg PO HS Depression 10/31/24
carvedilol 6.25 mg tablet 6.25 mg PO BID #60 tabs 11/05/24
hydralazine 25 mg tablet 25 mg PO BID #60 tabs 11/05/24
valsartan 160 mg tablet 160 mg PO DAILY #30 tabs 11/05/24
furosemide 40 mg tablet 40 mg PO BID 11/14/24
Review of Systems
-
History Source: Patient
Constitutional: Reports No Symptoms
EENT: Reports No Symptoms
Respiratory: Reports Trouble Breathing (increased shortness of breath and O2 demand )
Cardiac: Reports No Symptoms
Abdomen/GI: Reports No Symptoms
: Reports No Symptoms
Musculoskeletal: Reports Edema (generalized edema )
Skin: Reports No Symptoms
Neurological: Reports No Symptoms
Endocrine: Reports No Symptoms
Hematologic/Lymphatic: Reports No Symptoms
Psych: Reports No Symptoms
Physical Exam
Vital Signs
Vital Signs
Temp Pulse Resp BP Pulse Ox
98.5 F 73 20 141/71 93
11/14/24 12:23 11/14/24 12:23 11/14/24 12:23 11/14/24 12:23 11/14/24 12:23
Physical Exam
General: Well Developed, Well Nourished, No Apparent Distress, Comfortable and Conversant
HEENT: NormoCephalic, Moist mucous membranes, Atraumatic, [place] Conjunctivae, Nose Appears Normal, Ears Appear Normal and Hearing Impaired
Respiratory: Clear, Non Labored Respirations and Decreased Breath Sounds (bilateral lower lobes )
Cardiac: S1/S2 and Regular Rhythm; No Murmur, Rub or Gallop
Breast: Deferred by me
GI: Soft, Non Tender, Normal Bowel Sounds and Distended (firm ); No Organomegaly
Rectal: Deferred by Provider
Genito-urinary: Deferred by me (ED assessment reports significant scrotal edema)
Musculoskeletal: No Clubbing, No Cyanosis and No Edema
Skin: Warm and IV/Catheter Site; No Rash
Neuro: Awake, Alert, AO x 3 and Nonfocal/grossly intact
Hematologic/Lymphatic: No Lymphadenopathy
Psych: Calm and Intact Judgment/Insight
Laboratory Results
-
11/14/24 12:36
11/14/24 12:36
Laboratory Results
Total Bilirubin 0.2 mg/dl (0.2-1.3) 11/14/24 12:36
AST 29 U/L (17-59) 11/14/24 12:36
ALT 27 U/L (0-50) 11/14/24 12:36
Alkaline Phosphatase 123 U/L (38-126) 11/14/24 12:36
Troponin I 0.042 ng/ml H* 11/14/24 12:36
Data Reviewed
-
Diagnostic Radiology: Report Reviewed by me (CXR: Improved findings suggesting pneumonia versus CHF. Clinical and laboratory correlation recommended. Mild cardiomegaly. Stable)
Medical Tests (Nuc Med, Echo, EKG etc): Report Reviewed by me (EKG: NORMAL SINUS RHYTHM)
Lab Data: Labs Reviewed by me (BNP 3890, Trop 0.042)
Impression/Plan
-
IMPRESSION/PLAN:
#acute on chronic heart failure
#HFpEF
BNP 3890, Trop 0.042
CXR: Improved findings suggesting pneumonia versus CHF. Clinical and laboratory correlation recommended.
Mild cardiomegaly. Stable
- Admit to telemetry
- consult Cardiology
- IV lasix
- daily weights
- I&Os
#COPD
- continue Trelegy
#hypertension
- continue amlodipine, carvedilol, hydralazine and valsartan
#depression
- continue sertraline
#CKD III
BUN 32, creat 1.4
- monitor BMP
Code status: Full Code
DVT Prophylaxis: Heparin sq
[2024-11-14] MEDS: LASIX 80 MG IV (16:02)
--- NOTE | 2024-11-14 16:15 | W.PN.UPDATE ---
Update Note
Progress Note Update
This is an addendum to the H&P written by Leslye Kenny on 11/14/2024. Patient seen and examined independently with [employer]END[employer].
84-year-old male past medical history of HFpEF, COPD, hypertension, bilateral stasis dermatitis, CKD 3, with recent admission for CHF exacerbation discharged on 11/05 here for 12 pound weight gain and shortness of breath, increased edema consistent
with current CHF exacerbation despite increasing Lasix to 40 twice a day oral over the past few days.
Chest x-ray shows improved findings suggesting pneumonia versus CHF. Cardiac BNP of 38,000 from 4600. Renal function is at baseline. Lasix 40 IV twice daily. Cardiology consulted.
--- NOTE | 2024-11-14 16:43 | CON.CAR ---
Addendum entered and electronically signed by Genaro Cartwright MD 11/14/24 17:28:
Patient seen and examined
Agree with CHARLIE Burgos's note and assessment
Agree with CHARLIE Burgos's plan
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
He is noticed increased swelling in his dad's wrists and hands as well as ankles and feet since discharge. He saw my partner Dr. An in the office who increased his Lasix to 40 mg p.o. twice daily. He has had an increase in weight particularly
with more abdominal distention and diminished appetite. Some of the diminished appetite and less eating may be due to patient and being afraid to eat meat given his recent hospitalization. He does not appear in acute distress when I saw the
patient and although he appears to be winded at times some of this per son may be due to lack of stamina after recent hospitalization.
Examination:
Trace to 1+ mid calf to foot edema. Wrist and hand edema which appears mild to me.
Alert and orient x 3
Nonfocal neurologically
JVP 6
Cor regular without murmur
Lungs are relatively clear with some dry rales at the bases
Chest x-ray reviewed on admission which to me appears better aerated and less CHF
Abdomen is soft but mildly distended I do not feel a fluid wave and nontender
There is some mild erythema in the mid ojeda region where there is some mild edema
Skin otherwise without rash
Primary Stereotype Finisher: Dr. Elizondo
Impression:
Presentation with recurrent weight gain, LE edema, MUNOZ
Acute HFpEF
Admission to 10/31-11/05/24 for new HFpEF
Atrial tachycardia
Moderate MR
CKD
PAD, abnormal L IVAN, mod to severe claudication
HTN
HLD
GERD
COPD
Hernia
Anemia
Hypoalbuminemia
ECHO 10/21/24: EF 60 to 65%, mild concentric LVH, stage III diastolic dysfunction, moderately dilated atria, mild MAC, moderate MR, mild TR, PAP 52 mmHg, ascending aorta top normal at 3.7 cm
Plan:
-Patient presents back to [facility] due to recurrent weight gain, lower extremity edema, dyspnea on exertion after admission to [facility] 10/31-11/05/24 for new heart failure status post diuresis. Despite escalating outpatient
diuretic therapy, he continued with worsening symptoms. Reports compliance with fluid and salt restrictions at home
-Agree with diuresis with IV Lasix 40 mg twice daily although we do have to we will keep a close watch on his creatinine. Some element of his edema may be noncardiogenic as his albumin and total protein are quite low and I reached out to the
internal medicine team to consider workup for these lab values. Creatinine 1.4, follow with diuresis. He may be intravascularly euvolemic despite peripheral edema and some abdominal distention�weight gain. If he were to have significant rise in
creatinine may ultimately need to consider right heart catheterization
-Echo with results as above
-He is noted to be anemic and iron studies last admission abnormal. In setting of heart failure would consider iron repletion. He also has a history of significant gastroesophageal reflux disease and has not had endoscopy for 20 years. Would
consider outpatient GI evaluation for endoscopy. This may be contributing to his dyspnea on exertion.
-Also with significant hypoalbuminemia, 1.8. Would consider albumin repletion as could be contributing to significant lower extremity edema
-Will have case management look into cost of SGLT2 inhibitor. He denies history of UTIs or wounds
-Discussed with patient's son Christiano at bedside
Original Note:
Consultation
Consultation Request
Date/Time Consultation Performed: 11/14/24
Requesting Provider: Anjali Kenny PA-C
Performing Provider: Martha Burgos PA-C for Dr. Cartwright
Reason for Consultation: CHF
Medical History
-
Chief Complaint: LE edema
History of Present Illness:
Patient is an 84-year-old male with past medical history of hypertension, hyperlipidemia, GERD, recent diagnosis COPD with former smoking who presents to [facility] emergency room for evaluation of worsening lower extremity edema since
discharge. He had presented with LE edema 10/31 and was admitted. Diuresed well with IV lasix 40mg BID and was discharged 11/05/24 at weight of 186 pounds on po lasix 40mg daily. Patient and family at bedside report since DC he has gained 12 pounds
and edema is back in B/L legs up to groin area. He was seen in cardiology office 11/12 and felt to be in failure and lasix dose was increased to 40mg BID without improvement so came to ER for eval. proBNP 3890 and CXR with evidence of improved CHF vs
PNA compared to prior from 10/2024. Son reports he has been compliant with fluid and salt restrictions at home. cardiology consulted for evaluation.
PMH:
Admission to 10/31-11/05/24 for new HFpEF
Atrial tachycardia
Moderate MR
CKD
PAD, abnormal L IVAN, mod to severe claudication
HTN
HLD
GERD
COPD
Hernia
Anemia
Hypoalbuminemia
Past Medical History
Past Medical History: Other (in HPI)
Social History
Tobacco: Former Smoker
Personal:
Living: With Family
Employment: Retired
Family History
Family History: Cancer and Other (brain aneurysm, CVA in brothers)
Allergies / Home Medications
Allergy/AdvReac Type Severity Reaction Status Date / Time
No Known Allergies Allergy Verified 11/14/24 12:26
�Medication �Instructions �Recorded �Confirmed �Type
amlodipine 5 mg tablet (Norvasc) 5 mg PO DAILY Blood Pressure 10/31/24 11/14/24 History
carboxymethylcellulose 0.5 1 drp BOTH EYES TID Eye Condition 10/31/24 11/14/24 History
%-glycerin 0.9 % eye drops
(Refresh Optive)
cilostazol 100 mg tablet 100 mg PO BID Blood Clot 10/31/24 11/14/24 History
Prevention/Tx
fluticasone fur. 100 mcg-umeclid 1 inh inhalation R DAILY 10/31/24 11/14/24 History
62.5 mcg-vilant 25 mcg Lung/Breathing Issues
inhalat.powder (Trelegy Ellipta)
omeprazole 20 mg tablet,delayed 20 mg PO DAILY Gastrointestinal 10/31/24 11/14/24 History
release Issue
sertraline 25 mg tablet 25 mg PO HS Depression 10/31/24 11/14/24 History
carvedilol 6.25 mg tablet 6.25 mg PO BID #60 tabs 11/05/24 11/14/24 Rx
hydralazine 25 mg tablet 25 mg PO BID #60 tabs 11/05/24 11/14/24 Rx
valsartan 160 mg tablet 160 mg PO DAILY #30 tabs 11/05/24 11/14/24 Rx
furosemide 40 mg tablet 40 mg PO BID 11/14/24 11/14/24 History
Review of Systems
-
History Source: Patient and Family
All other systems: Negative unless noted
Physical Exam
Vital Signs
Temp Pulse Resp BP Pulse Ox
98.5 F 70 27 153/77 97
11/14/24 12:23 11/14/24 16:02 11/14/24 15:45 11/14/24 16:02 11/14/24 15:55
Lab Results
11/14/24 12:36
11/14/24 12:36
Troponin I 0.042 ng/ml H* 11/14/24 12:36
Cfc-Y-Vqnttygvvoc Pept 3890 pg/ml 11/14/24 12:36
Physical Exam
General: No Apparent Distress, Comfortable and Other (on supp O2)
HEENT: Normocephalic, Anicteric and Moist Mucous Membranes
Respiratory: Wheezes and Non Labored Respirations
Cardiac: S1/S2 and Regular Rhythm
GI: Soft, Non Tender, Normal Bowel Sounds and Distended
Musculoskeletal: No Clubbing, No Cyanosis and Edema (4+ to level of groin B/L, swelling of B/L hands)
Skin: Warm and Dry
Neuro: AO x 3
Impression / Plan
-
Primary Stereotype Finisher: Dr. Elizondo
Impression:
Presentation with recurrent weight gain, LE edema, MUNOZ
Acute HFpEF
Admission to 10/31-11/05/24 for new HFpEF
Atrial tachycardia
Moderate MR
CKD
PAD, abnormal L IVAN, mod to severe claudication
HTN
HLD
GERD
COPD
Hernia
Anemia
Hypoalbuminemia
ECHO 10/21/24: EF 60 to 65%, mild concentric LVH, stage III diastolic dysfunction, moderately dilated atria, mild MAC, moderate MR, mild TR, PAP 52 mmHg, ascending aorta top normal at 3.7 cm
Plan:
-Patient presents back to [facility] due to recurrent weight gain, lower extremity edema, dyspnea on exertion after admission to [facility] 10/31-11/05/24 for new heart failure status post diuresis. Despite escalating outpatient
diuretic therapy, he continued with worsening symptoms. Reports compliance with fluid and salt restrictions at home
-Agree with diuresis with IV Lasix 40 mg twice daily. Creatinine 1.4, follow with diuresis
-Echo with results as above
-He is noted to be anemic and iron studies last admission abnormal. In setting of heart failure would consider iron repletion
-Also with significant hypoalbuminemia, 1.8. Would consider albumin repletion as could be contributing to significant lower extremity edema
-Will have case management look into cost of SGLT2 inhibitor. He denies history of UTIs or wounds
-Discussed with patient's son Christiano at bedside
Data Reviewed
-
EKG: Tracing Personally Visualized and interpreted
Radiology: Report Reviewed by me
Medical Tests (Nuc Med, Echo etc): Report Reviewed by me
Labs: Labs Reviewed by me
Old Records: Reviewed
[2024-11-14] MEDS: APRESOLINE 25 MG PO (20:02)
[2024-11-14] MEDS: COREG 6.25 MG PO (20:03)
[2024-11-14] MEDS: PLETAL 100 MG PO (20:03)
[2024-11-14] MEDS: ZOLOFT 25 MG PO (21:36)
[2024-11-14] MEDS: REFRESH CELLUVISC GEL 1 DROPS BOTH EYES (21:37)
[2024-11-14] MEDS: HEPARIN 5000 UNITS SC (23:21)
[2024-11-14] MEDS: PROTONIX 40 MG PO (23:40)
[2024-11-15] VITALS (8 sets, daily range): BP systolic 110–147; BP diastolic 56–68; BMI 29.1
[2024-11-15 08:41] LABS: Hematocrit 32.7 % (39.0-52.0); Hemoglobin 10.4 g/dL (13.0-18.0); Mean Corp Hgb Conc. 31.8 g/dL (33.0-37.0); Mean Corpuscular Hgb 25.9 pg (27.0-31.0); Mean Corpuscular Volume 81.5 fL (80.0-94.0); Mean Platelet Volume 10.6 fL (7.4-10.4); Platelet Count 165 10^3/uL (130-400); Red Blood Cell Count 4.01 10^6/uL (4.70-6.10); Red Cell Dist. Width 17.5 % (11.5-14.5); White Blood Cell Count 9.3 10^3/uL (4.8-10.8)
[2024-11-15] MEDS: SYMBICORT 80/4.5 MCG INHALER 2 PUFF INH ×2 (08:47→18:34)
[2024-11-15] MEDS: SPIRIVA RESPIMAT 2.5 MCG 2 PUFF INH (08:47)
[2024-11-15] MEDS: SYMBICORT 80/4.5 MCG INHALER INH (08:53)
[2024-11-15 09:16] LABS: Blood Urea Nitrogen 30 mg/dl (9-20); Carbon Dioxide 33 mmol/L (22-30); Chloride 103 mmol/L (98-107); Estimated Creatinine Clearance 42 ml/min; Glucose 88 mg/dl (70-99); HDL Cholesterol 34 mg/dl; LDL Cholesterol, Calculated 121 mg/dl; Potassium 3.8 mmol/L (3.5-5.1); Sodium 138 mmol/L (135-145); Total Cholesterol 181 mg/dl (50-199); Triglyceride 134 mg/dl (10-149); Very Low Density Lipoprotein 26 mg/dl (0-30); eGFR 54.85
[2024-11-15] MEDS: HEPARIN 5000 UNITS SC ×2 (09:33→17:50)
[2024-11-15] MEDS: DIOVAN 160 MG PO (09:33)
[2024-11-15] MEDS: REFRESH CELLUVISC GEL 1 DROPS BOTH EYES ×3 (09:34→21:29)
[2024-11-15] MEDS: PLETAL 100 MG PO (09:34)
[2024-11-15] MEDS: LASIX 40 MG PO (09:34)
[2024-11-15] MEDS: NORVASC 5 MG PO (09:35)
[2024-11-15] MEDS: COREG 6.25 MG PO ×2 (09:35→20:14)
[2024-11-15] MEDS: APRESOLINE 25 MG PO ×2 (09:36→20:13)
[2024-11-15] MEDS: PROTONIX 40 MG PO (09:37)
--- NOTE | 2024-11-15 13:13 | W.PN.HOSP.TC ---
Today's Communication/Plan
-
IV diuresis.
EPO level.
IV iron
Assessment / Plan
Assessment / Plan
Impression:
Presentation with worsening of shortness of breath, weight gain, worsening of lower extremity edema
Acute CHF preserved EF exacerbation.
Other conditions:
Chronic hypoxic respiratory failure on home O2 at 2 L intermittently.
Chronic CHF preserved EF
-ECHO 10/21/24: EF 60 to 65%, mild concentric LVH, stage III diastolic dysfunction, moderately dilated atria, mild MAC, moderate MR, mild TR, PAP 52 mmHg, ascending aorta top normal at 3.7 cm
Moderate MR
Pulmonary hypertension
CKD stage IIIb baseline creatinine 1.3.
PAD with abnormal left IVAN/moderate to severe claudication on Pletal RN STAFFING.
Essential hypertension
Dyslipidemia.
GERD.
COPD.
Chronic anemia
Hypoalbuminemia.
Plan:
Acute CHF exacerbation
Echo as above.
States to be compliant with Lasix, although presents with worsening of exertional dyspnea, worsening of peripheral edema (part of that could be chronic lymphedema) JVD on exam.
'If this is cardiorenal state in the patient with CKD.
IV diuresis with Lasix 60 mg IV twice daily monitor renal function, daily weights closely.
Cardiology input appreciated.
Hold valsartan and Norvasc to give room in BP for IV diuresis.
Hold Pletal acutely
Continue Coreg
CKD 3
Monitor renal function with diuresis closely
Consider nephrology evaluation
Anemia of chronic disease per
Recent studies consistent with mixed picture of anemia of CKD and mild iron deficiency.
Will need GI evaluation as outpatient once cardiovascular status is optimized.
Check EPO level
IV iron.
Essential hypertension
Continue hydralazine, Coreg. Hold Norvasc and losartan.
GERD
On PPI
Full code.
DVT prophylaxis with heparin.
Plan of care discussed with patient's family at the bedside.
Anticipated Discharge: 24 - 48 hours
Subjective/Interval History
-
Date of Service: November 15, 2024
Objective Data
-
Labs:
Laboratory Results
11/15/24
06:46
WBC 9.3
Hgb 10.4 L
Hct 32.7 L
Plt Count 165
Sodium 138
Potassium 3.8
Chloride 103
Carbon Dioxide 33 H
BUN 30 H
Creatinine 1.3
Glucose 88
Calcium 7.0 L
Vital Signs:
Vital Signs
Temp Pulse Resp BP Pulse Ox
97.5 F 72 18 129/68 95
11/15/24 11:00 11/15/24 11:00 11/15/24 11:00 11/15/24 11:00 11/15/24 11:00
I&O
11/14/24 11/15/24 11/16/24
06:59 06:59 06:59
Intake Total 240 / 240 240 / 240
Output Total 175 / 175 300 / 300
Balance 65 / 65 -60 / -60
Physical Exam
-
General: Well Developed and No Apparent Distress
HEENT: Normocephalic, Atraumatic and Moist Mucous Membranes
Respiratory: Rales
Cardiac: Regular Rhythm, S1/S2, Murmur and JVD; Negative Rub or Gallop
GI: Soft, Nontender, Nondistended and Normal Bowel Sounds; Negative Organomegaly
Rectal: Deferred by Provider
Musculoskeletal: No Clubbing, No Cyanosis and No Edema
Skin: Negative Rash
Neuro: Awake, Alert, Oriented and Nonfocal/Grossly Intact
[2024-11-15] MEDS: FERRLECIT 110 MG IV (15:12)
--- NOTE | 2024-11-15 16:44 | W.PN.CARDCBS ---
Addendum entered and electronically signed by Chin Gunderson MD 11/15/24 19:27:
84-year-old man admitted with presumed acute HFpEF, also possibly with an element of noncardiogenic edema. Still with dyspnea and wheezing
PMH: Atrial tachycardia, moderate MR, CKD, PAD, hypertension, hyperlipidemia, GERD, COPD, hypoalbuminemia
Current medications: Amlodipine 5 mg a day on hold, carvedilol 6.25 twice daily, cilostazol 100 mg twice daily, on hold, hydralazine 25 mg twice daily, pantoprazole, sertraline 25 at bedtime, valsartan 160 mg a day on hold, subcu heparin, Spiriva,
Symbicort, furosemide 60 IV twice daily, intravenous iron gluconate
128/60, pulse 75, weight is 86.75 kg, if accurate weight is up 1.5 kg, weight was 87.2 kg on admission, pleasant, appears somewhat tachypneic, some rhonchi, small amount of edema, neck veins approximately 10
BUN and creatinine 30 and 1.3, potassium is 3.8, albumin 1.8
Telemetry reviewed
Impression: See below
Major active concerns right now are presumed HFpEF with acute exacerbation of COPD. Underlying hypoalbuminemia probably a contributor
Plan:
He has multifactorial dyspnea. At present, it seems that COPD is a significant contributor.
We have yet to successfully diurese him. Furosemide has been increased.
He is of Mediterranean origin, but screens negative for indicators for amyloid.
He has hypoalbuminemia and is also on amlodipine which could be contributing to edema.
Agree with holding amlodipine at this time. Blood pressure is reasonable.
Given CHF be best to avoid cilostazol..
Given COPD, we may need to discontinue carvedilol, which has limited role in HFpEF. No history of obstructive CAD and troponin is presumed non-ACS related myocardial injury
Original Note:
Today's Communication / Plan
-
Continue IV diuresis increase to 60 mg IV twice daily
Continue to replete iron
Pletal, Valsartan and amlodipine on hold
Monitor renal function and electrolytes
Impression / Plan
-
Primary Heating Unit Mechanic: Dr. Elizondo
Impression:
Presentation 11/14/2024 with recurrent weight gain, LE edema, MUNOZ
Acute HFpEF, proBNP, proBNP 3890
Abnormal troponin, suspect nonischemic myocardial injury secondary to acute heart failure exacerbation
Admission to 10/31-11/05/24 for new HFpEF
Atrial tachycardia
Moderate MR
CKD
PAD, abnormal L IVAN, mod to severe claudication
HTN
HLD
GERD
COPD
Hernia
Anemia
Hypoalbuminemia
ECHO 10/21/24: EF 60 to 65%, mild concentric LVH, stage III diastolic dysfunction, moderately dilated atria, mild MAC, moderate MR, mild TR, PAP 52 mmHg, ascending aorta top normal at 3.7 cm
Plan:
-Patient presented 11/14/2024 to [facility] due to recurrent weight gain, lower extremity edema, dyspnea on exertion after admission to [facility] 10/31-11/05/24 for new heart failure status post diuresis. Despite escalating
outpatient diuretic therapy, he continued with worsening symptoms. Reports compliance with fluid and salt restrictions at home
-Poor response to diuresis thus far. Will increase Lasix to 60 mg twice daily IV. If does not respond within the next 24 hours would consider trial of Zaroxolyn
-Creatinine 1.3, follow with diuresis
-If he were to have significant rise in creatinine may ultimately need to consider right heart catheterization
-Some element of his edema may be noncardiogenic as his albumin and total protein are quite low and I reached out to the internal medicine team to consider workup for these lab values
-Echo with results as above
-He is noted to be anemic and iron studies last admission abnormal. In setting of heart failure would consider iron repletion
-Also with significant hypoalbuminemia, 1.8. Would consider albumin repletion as could be contributing to significant lower extremity edema
-Will have case management look into cost of SGLT2 inhibitor. He denies history of UTIs or wounds
-Hold valsartan and Norvasc to give room in BP for IV diuresis. Continue Coreg
-Recent studies consistent with mixed picture of anemia of CKD and mild iron deficiency. Hgb stable at 10.4 iron being repleted with infusion
-Check EPO level per primary service
-Discussed with patient's son Christiano at bedside
HPI 11/15/2024:
History of Present Illness:
Patient is an 84-year-old male with past medical history of hypertension, hyperlipidemia, GERD, recent diagnosis COPD with former smoking who presents to [facility] emergency room for evaluation of worsening lower extremity edema since
discharge. He had presented with LE edema 10/31 and was admitted. Diuresed well with IV lasix 40mg BID and was discharged 11/05/24 at weight of 186 pounds on po lasix 40mg daily. Patient and family at bedside report since DC he has gained 12 pounds
and edema is back in B/L legs up to groin area. He was seen in cardiology office 11/12 and felt to be in failure and lasix dose was increased to 40mg BID without improvement so came to ER for eval. proBNP 3890 and CXR with evidence of improved CHF vs
PNA compared to prior from 10/2024. Son reports he has been compliant with fluid and salt restrictions at home. cardiology consulted for evaluation.
Progress Note - Heating Unit Mechanic
Subjective
Date of Service: November 15, 2024
Patient seen and examined. Patient lying comfortably in bed. Feels less short of breath but still not back to baseline.
Objective
Labs:
11/15/24 06:46
11/15/24 06:46
Labs
Hgb 10.4 g/dL (13.0-18.0) L 11/15/24 06:46
Hct 32.7 % (39.0-52.0) L 11/15/24 06:46
Plt Count 165 10^3/uL (130-400) 11/15/24 06:46
Sodium 138 mmol/L (135-145) 11/15/24 06:46
Potassium 3.8 mmol/L (3.5-5.1) 11/15/24 06:46
BUN 30 mg/dl (9-20) H 11/15/24 06:46
Creatinine 1.3 mg/dL (0.7-1.3) 11/15/24 06:46
Glucose 88 mg/dl (70-99) 11/15/24 06:46
Troponins
11/14/24
12:36
Troponin I 0.042 H*
Vital Signs and I&O:
Vital Signs
Temp Pulse Resp BP Pulse Ox
97.5 F 72 18 129/68 95
11/15/24 11:00 11/15/24 11:00 11/15/24 11:00 11/15/24 11:00 11/15/24 11:00
Vital Signs
Temp Pulse Resp BP Pulse Ox
97.5 F 72 18 129/68 95
11/15/24 11:00 11/15/24 11:00 11/15/24 11:00 11/15/24 11:00 11/15/24 11:00
Intake & Output
11/13/24 11/14/24 11/15/24 11/16/24
06:59 06:59 06:59 06:59
Intake Total 240 / 240 240 / 240
Output Total 175 / 175 300 / 300
Balance 65 / 65 -60 / -60
Physical Exam
Physical Exam
GEN: No distress, awake, Ox3
HEENT: supple, anicteric, mmm
LUNGS: Few scattered crackles in expiratory wheezes on right CTA; wearing oxygen
CV: Reg, S1/S2, 1/6 syst LSB murmur
ABD: soft, BS+, NT/ND
EXT: trace to +1 LE with chronic skin changes c/w chronic venous stasis
NEURO: Gross non-focal
SKIN: No rash,
[2024-11-15] MEDS: LASIX 60 MG IV (17:06)
[2024-11-15] MEDS: DUONEB 3 ML INH (18:26)
[2024-11-15] MEDS: ZOLOFT 25 MG PO (21:28)
[2024-11-16 03:31] VITALS: BP 140/62
[2024-11-16 06:00] VITALS: BMI 28.0
[2024-11-16 07:00] VITALS: BP 148/74
[2024-11-16 07:32] LABS: Hematocrit 32.8 % (39.0-52.0); Hemoglobin 10.5 g/dL (13.0-18.0); Mean Corpuscular Volume 81.2 fL (80.0-94.0); Mean Platelet Volume 9.9 fL (7.4-10.4); Platelet Count 162 10^3/uL (130-400); Red Blood Cell Count 4.04 10^6/uL (4.70-6.10); Red Cell Dist. Width 17.4 % (11.5-14.5); White Blood Cell Count 8.3 10^3/uL (4.8-10.8)
[2024-11-16] MEDS: SPIRIVA RESPIMAT 2.5 MCG 2 PUFF INH (08:03)
[2024-11-16] MEDS: SYMBICORT 80/4.5 MCG INHALER 2 PUFF INH ×2 (08:04→16:23)
[2024-11-16 08:08] LABS: Blood Urea Nitrogen 32 mg/dl (9-20); Calcium 7.3 mg/dl (8.4-10.2); Carbon Dioxide 29 mmol/L (22-30); Chloride 104 mmol/L (98-107); Estimated Creatinine Clearance 42 ml/min; Glucose 80 mg/dl (70-99); Potassium 3.8 mmol/L (3.5-5.1); Sodium 137 mmol/L (135-145); eGFR 54.85
[2024-11-16] MEDS: DUONEB 3 ML INH (08:08)
[2024-11-16] MEDS: APRESOLINE 25 MG PO ×2 (08:39→20:05)
[2024-11-16] MEDS: REFRESH CELLUVISC GEL 1 DROPS BOTH EYES ×3 (08:39→21:46)
[2024-11-16] MEDS: COREG 6.25 MG PO ×2 (08:39→20:05)
[2024-11-16] MEDS: PROTONIX 40 MG PO (08:39)
[2024-11-16] MEDS: HEPARIN 5000 UNITS SC ×4 (08:39→23:09)
[2024-11-16] MEDS: LASIX 60 MG IV ×2 (08:40→15:38)
[2024-11-16] MEDS: MIRALAX 17 GRAMS PO (09:38)
--- NOTE | 2024-11-16 10:02 | W.PN.CARDCBS ---
Addendum entered and electronically signed by Chin Gunderson MD 11/16/24 18:08:
84-year-old man with PAD, COPD, hypertension, hyperlipidemia admitted with presumed HFpEF in October, with hypoalbuminemia. Furosemide was started but since discharge he noted weight gain and was readmitted on November 14. proBNP 3890, initially
did not respond to diuretics but diuretics increased, and feels better.
Current meds: Carvedilol 6.25 twice daily, hydralazine 25 twice daily, pantoprazole 40 mg a day, sertraline 25 mg a day, valsartan 160 mg a day, subcu heparin, Spiriva, Symbicort, furosemide 60 IV twice daily iron gluconate
144/75, pulse 80, afebrile, respiratory rate 16, weight is 83.6 kg, had been 86.75 kg, still with rhonchi, regular rate and rhythm, no obvious murmurs, abdomen benign, trace to 1+ edema
Hemoglobin 10.5 BUN and creatinine 32 and 1.3
Impression: See below
Plan:
Overall, he looks improved with regards to HFpEF. With increased IV furosemide. Will continue for now. Valsartan is currently on hold. Amlodipine also on hold, as well as cilostazol. Would probably not restart amlodipine or cilostazol at this
time.
Eventual transition over to oral furosemide, likely 24 to 48 hours.
We will start Farxiga.
Potential discharge Monday or Monday.
Original Note:
Today's Communication / Plan
-
Continue IV diuresis with Lasix 60 mg twice daily
Replete potassium
Continue to monitor renal function and electrolytes
Discontinue amlodipine. Valsartan remains on hold with ongoing IV diuresis, eventual resumption
Impression / Plan
-
Primary Performance Management Consultant: Dr. Elizondo
Impression:
Presentation 11/14/2024 with recurrent weight gain, LE edema, MUNOZ
Acute HFpEF, proBNP, proBNP 3890
Abnormal troponin, suspect nonischemic myocardial injury secondary to acute heart failure exacerbation
Admission to 10/31-11/05/24 for new HFpEF
Atrial tachycardia
Moderate MR
CKD
PAD, abnormal L IVAN, mod to severe claudication
HTN
HLD
GERD
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
Hernia
Anemia
Hypoalbuminemia
ECHO 10/21/24: EF 60 to 65%, mild concentric LVH, stage III diastolic dysfunction, moderately dilated atria, mild MAC, moderate MR, mild TR, PAP 52 mmHg, ascending aorta top normal at 3.7 cm
Plan:
-Patient presented 11/14/2024 to [facility] due to recurrent weight gain, lower extremity edema, dyspnea on exertion after admission to [facility] 10/31-11/05/24 for new heart failure status post diuresis. Despite escalating
outpatient diuretic therapy, he continued with worsening symptoms. Reports compliance with fluid and salt restrictions at home
-Still has coarse breath sounds and some intermittent wheezing as well as orthopnea/PND. Edema slightly improved.
-Weight down 7 pounds overnight if scale correct, current weight 184 lbs. Continue Lasix to 60 mg twice daily IV.
-Creatinine stable at 1.3, follow with diuresis would replete potassium, currently 3.8
-Continues on 3 L oxygen via nasal cannula. Patient has baseline oxygen requirements at 2 L/min
-Given CHF be best to avoid cilostazol
-Some element of his edema may be noncardiogenic as he has hypoalbuminemia and low protein. Workup/repletion per primary service
-Amlodipine which could be contributing to edema. Would discontinue amlodipine.
-Could consider initiation of SGLT2 inhibitor. Farxiga and Jardiance are both $45. He denies history of UTIs or wounds
-Continue carvedilol and hydralazine. Valsartan has been on hold since admission. Would consider resuming at previous dose of 160 mg daily
-Echo with results as above
-Brief runs of atrial tachycardia noted on telemetry but overall heart rate reasonably controlled.
-He is noted to be anemic, hgb 10.4-11.1. Iron studies last admission abnormal. Patient has received iron repletion this admission.
HPI 11/15/2024:
History of Present Illness:
Patient is an 84-year-old male with past medical history of hypertension, hyperlipidemia, GERD, recent diagnosis COPD with former smoking who presents to [facility] emergency room for evaluation of worsening lower extremity edema since
discharge. He had presented with LE edema 10/31 and was admitted. Diuresed well with IV lasix 40mg BID and was discharged 11/05/24 at weight of 186 pounds on po lasix 40mg daily. Patient and family at bedside report since DC he has gained 12 pounds
and edema is back in B/L legs up to groin area. He was seen in cardiology office 11/12 and felt to be in failure and lasix dose was increased to 40mg BID without improvement so came to ER for eval. proBNP 3890 and CXR with evidence of improved CHF vs
PNA compared to prior from 10/2024. Son reports he has been compliant with fluid and salt restrictions at home. cardiology consulted for evaluation.
Progress Note - Performance Management Consultant
Subjective
Date of Service: November 16, 2024
Patient seen and examined. Patient sitting up in bed with oxygen on at 3 L/min. Reports he had a good response to increased dose of IV Lasix yesterday. Legs feel less tight. Still feels short of breath and had to sleep upright last night.
Objective
Labs:
11/16/24 06:22
11/16/24 06:21
Labs
Hgb 10.5 g/dL (13.0-18.0) L 11/16/24 06:22
Hct 32.8 % (39.0-52.0) L 11/16/24 06:22
Plt Count 162 10^3/uL (130-400) 11/16/24 06:22
Sodium 137 mmol/L (135-145) 11/16/24 06:21
Potassium 3.8 mmol/L (3.5-5.1) 11/16/24 06:21
BUN 32 mg/dl (9-20) H 11/16/24 06:21
Creatinine 1.3 mg/dL (0.7-1.3) 11/16/24 06:21
Glucose 80 mg/dl (70-99) 11/16/24 06:21
Troponins
11/14/24
12:36
Troponin I 0.042 H*
Vital Signs and I&O:
Vital Signs
Temp Pulse Resp BP Pulse Ox
97.4 F 77 22 148/74 93
11/16/24 07:00 11/16/24 08:09 11/16/24 08:09 11/16/24 07:00 11/16/24 08:09
Vital Signs
Temp Pulse Resp BP Pulse Ox
97.4 F 77 22 148/74 93
11/16/24 07:00 11/16/24 08:09 11/16/24 08:09 11/16/24 07:00 11/16/24 08:09
Intake & Output
11/14/24 11/15/24 11/16/24 11/17/24
06:59 06:59 06:59 06:59
Intake Total 240 / 240 960 / 960
Output Total 175 / 175 1150 / 1150
Balance 65 / 65 -190 / -190
Physical Exam
Physical Exam
GEN: No distress, awake, Ox3
HEENT: supple, anicteric, mmm
LUNGS: Diffuse bilateral rhonchi with expiratory wheezes bilaterally; wearing oxygen at 3 L/min
CV: Reg, S1/S2, 1/6 syst LSB murmur
ABD: soft, BS+, NT/ND
EXT: +1 LE with chronic skin changes c/w chronic venous stasis
NEURO: Gross non-focal
SKIN: No rash, warm, dry, pink
[2024-11-16] MEDS: KCL 40 MEQ PO (10:40)
[2024-11-16 11:34] VITALS: BP 134/67
[2024-11-16] MEDS: FERRLECIT 110 MG IV (13:12)
--- NOTE | 2024-11-16 15:02 | W.PN.HOSP.TC ---
Today's Communication/Plan
-
Reports improvement with IV diuresis.
Weight improvement 86-83 kg
Continue IV Lasix at the current dose
Daily weights.
Mobilize out of the bed.
Wean off O2 as tolerates/physical therapy assessment.
Bowel regimen ordered
Assessment / Plan
Assessment / Plan
Impression:
Presentation with worsening of shortness of breath, weight gain, worsening of lower extremity edema
Acute CHF preserved EF exacerbation.
Other conditions:
Chronic hypoxic respiratory failure on home O2 at 2 L intermittently.
Chronic CHF preserved EF
-ECHO 10/21/24: EF 60 to 65%, mild concentric LVH, stage III diastolic dysfunction, moderately dilated atria, mild MAC, moderate MR, mild TR, PAP 52 mmHg, ascending aorta top normal at 3.7 cm
Moderate MR
Pulmonary hypertension
CKD stage IIIb baseline creatinine 1.3.
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
Essential hypertension
Dyslipidemia.
GERD.
COPD.
Chronic anemia
Hypoalbuminemia.
Plan:
Acute CHF exacerbation
Echo as above.
States to be compliant with Lasix, although presents with worsening of exertional dyspnea, worsening of peripheral edema (part of that could be chronic lymphedema) JVD on exam.
'If this is cardiorenal state in the patient with CKD.
IV diuresis with Lasix 60 mg IV twice daily monitor renal function, daily weights closely.
Cardiology input appreciated.
Hold valsartan and Norvasc to give room in BP for IV diuresis.
Hold Pletal acutely
Continue Coreg
CKD 3
Monitor renal function with diuresis closely
Consider nephrology evaluation
Anemia of chronic disease per
Recent studies consistent with mixed picture of anemia of CKD and mild iron deficiency.
Will need GI evaluation as outpatient once cardiovascular status is optimized.
Check EPO level
IV iron.
Essential hypertension
Continue hydralazine, Coreg. Hold Norvasc and losartan.
GERD
On PPI
Full code.
DVT prophylaxis with heparin.
Plan of care discussed with patient's family at the bedside.
Anticipated Discharge: 24 - 48 hours
Subjective/Interval History
-
Date of Service: November 16, 2024
Objective Data
-
Labs:
Laboratory Results
11/16/24 11/16/24
06:21 06:22
WBC 8.3
Hgb 10.5 L
Hct 32.8 L
Plt Count 162
Sodium 137
Potassium 3.8
Chloride 104
Carbon Dioxide 29
BUN 32 H
Creatinine 1.3
Glucose 80
Calcium 7.3 L
Vital Signs:
Vital Signs
Temp Pulse Resp BP Pulse Ox
97.5 F 67 20 134/67 96
11/16/24 11:34 11/16/24 11:34 11/16/24 11:34 11/16/24 11:34 11/16/24 11:34
I&O
11/15/24 11/16/24 11/17/24
06:59 06:59 06:59
Intake Total 240 / 240 960 / 960
Output Total 175 / 175 1150 / 1150
Balance 65 / 65 -190 / -190
Physical Exam
-
General: Well Developed and No Apparent Distress
HEENT: Normocephalic, Atraumatic and Moist Mucous Membranes
Respiratory: Rales
Cardiac: Regular Rhythm, S1/S2, Murmur and JVD; Negative Rub or Gallop
GI: Soft, Nontender, Nondistended and Normal Bowel Sounds; Negative Organomegaly
Rectal: Deferred by Provider
Musculoskeletal: No Clubbing, No Cyanosis and No Edema
Skin: Negative Rash
Neuro: Awake, Alert, Oriented and Nonfocal/Grossly Intact
[2024-11-16 15:48] VITALS: BP 144/75
--- NOTE | 2024-11-16 16:11 | CM ---
scheduling manager reviewed patient's chart and met with patient and patient lives with his spouse in a multilevel home, 2 steps to enter, patient has 1st floor set up, patient is current with [facility] visiting nurses, plan home with [facility] visiting nurses
when stable. patient is independent with adl's and ambulation, patient has home oxygen set up with [employer].
PCP: Abad Chung
Pharm[facility]; [facility]
Plan; Home with [facility] visiting nurses
[place]
[phone]
[2024-11-16 19:45] VITALS: BP 139/69
[2024-11-16] MEDS: MILK OF MAGNESIA 30 ML PO (21:45)
[2024-11-16] MEDS: COLACE 100 MG PO (21:46)
[2024-11-16] MEDS: ZOLOFT 25 MG PO (21:46)
[2024-11-16 23:13] VITALS: BP 129/60
--- NOTE | 2024-11-17 01:25 | PTCARENOTE ---
Pt given milk of magnesia and colace earlier in shift. Will continue to monitor effectiveness.
[2024-11-17 03:39] VITALS: BP 131/66
[2024-11-17 06:00] VITALS: BMI 27.5
[2024-11-17 06:42] VITALS: BP 119/55
[2024-11-17 07:21] LABS: Hematocrit 32.6 % (39.0-52.0); Mean Corp Hgb Conc. 30.7 g/dL (33.0-37.0); Mean Corpuscular Hgb 25.3 pg (27.0-31.0); Mean Corpuscular Volume 82.5 fL (80.0-94.0); Mean Platelet Volume 10.4 fL (7.4-10.4); Platelet Count 166 10^3/uL (130-400); Red Blood Cell Count 3.95 10^6/uL (4.70-6.10); Red Cell Dist. Width 17.2 % (11.5-14.5)
[2024-11-17 07:55] LABS: Blood Urea Nitrogen 32 mg/dl (9-20); Calcium 7.3 mg/dl (8.4-10.2); Carbon Dioxide 35 mmol/L (22-30); Chloride 103 mmol/L (98-107); Estimated Creatinine Clearance 42 ml/min; Glucose 84 mg/dl (70-99); Potassium 4.4 mmol/L (3.5-5.1); Sodium 138 mmol/L (135-145); eGFR 54.85
[2024-11-17] MEDS: SPIRIVA RESPIMAT 2.5 MCG 2 PUFF INH (08:36)
[2024-11-17] MEDS: SYMBICORT 80/4.5 MCG INHALER 2 PUFF INH ×2 (08:37→17:33)
[2024-11-17] MEDS: LASIX 60 MG IV ×2 (09:24→15:36)
[2024-11-17] MEDS: REFRESH CELLUVISC GEL 1 DROPS BOTH EYES ×3 (09:24→21:35)
[2024-11-17] MEDS: APRESOLINE 25 MG PO ×2 (09:24→21:35)
[2024-11-17] MEDS: FARXIGA 10 MG PO (09:24)
[2024-11-17] MEDS: PROTONIX 40 MG PO (09:24)
[2024-11-17] MEDS: COREG 6.25 MG PO ×2 (09:24→21:36)
[2024-11-17] MEDS: MIRALAX 17 GRAMS PO (09:25)
[2024-11-17] MEDS: HEPARIN 5000 UNITS SC ×3 (09:25→23:27)
[2024-11-17 11:10] VITALS: BP 133/61
--- NOTE | 2024-11-17 13:02 | W.PN.CARDCBS ---
Today's Communication / Plan
-
Add spironolactone 12.5 mg daily
Impression / Plan
-
Primary Insulation Supervisor: Dr. Elizondo
Impression:
Presentation 11/14/2024 with recurrent weight gain, LE edema, MUNOZ
Acute HFpEF, proBNP, proBNP 3890
Abnormal troponin, suspect nonischemic myocardial injury secondary to acute heart failure exacerbation
Admission to 10/31-11/05/24 for new HFpEF
Atrial tachycardia
Moderate MR
CKD
PAD, abnormal L IVAN, mod to severe claudication
HTN
HLD
GERD
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
Hernia
Anemia
Hypoalbuminemia
ECHO 10/21/24: EF 60 to 65%, mild concentric LVH, stage III diastolic dysfunction, moderately dilated atria, mild MAC, moderate MR, mild TR, PAP 52 mmHg, ascending aorta top normal at 3.7 cm
Plan:
He is modestly improved and seems better day over day.
Continue furosemide 60 mg IV every 12.
Creatinine stable at 1.3. Continue to hold Diovan. Add low-dose spironolactone.
Continue Farxiga.
Likely transition to oral furosemide in 24 to 48 hours.
HPI 11/15/2024:
History of Present Illness:
Patient is an 84-year-old male with past medical history of hypertension, hyperlipidemia, GERD, recent diagnosis COPD with former smoking who presents to [facility] emergency room for evaluation of worsening lower extremity edema since
discharge. He had presented with LE edema 10/31 and was admitted. Diuresed well with IV lasix 40mg BID and was discharged 11/05/24 at weight of 186 pounds on po lasix 40mg daily. Patient and family at bedside report since DC he has gained 12 pounds
and edema is back in B/L legs up to groin area. He was seen in cardiology office 11/12 and felt to be in failure and lasix dose was increased to 40mg BID without improvement so came to ER for eval. proBNP 3890 and CXR with evidence of improved CHF vs
PNA compared to prior from 10/2024. Son reports he has been compliant with fluid and salt restrictions at home. cardiology consulted for evaluation.
Progress Note - Insulation Supervisor
Subjective
Date of Service: November 17, 2024:
Current meds: Carvedilol 6.25 twice daily, hydralazine 25 mg twice daily, pantoprazole 40 mg a day, sertraline 25 mg at bedtime, valsartan 160 mg a day, on hold, subcu heparin, Spiriva, Symbicort, furosemide 60 IV twice daily, iron, polyethylene,
Farxiga 10 mg a day
133/61, pulse 64, resp rate 18, weight is 82.15 kg, down 1.5 kg, lungs are relatively clear, some decreased right base, regular rate and rhythm, JVD is improved, abdomen benign, still 1+ edema
Hemoglobin 10, white count 7, BUN and creatinine are 32 and 1.3, potassium is 4.4
Objective
Labs:
11/17/24 06:20
11/17/24 06:20
Labs
Hgb 10.0 g/dL (13.0-18.0) L 11/17/24 06:20
Hct 32.6 % (39.0-52.0) L 11/17/24 06:20
Plt Count 166 10^3/uL (130-400) 11/17/24 06:20
Sodium 138 mmol/L (135-145) 11/17/24 06:20
Potassium 4.4 mmol/L (3.5-5.1) 11/17/24 06:20
BUN 32 mg/dl (9-20) H 11/17/24 06:20
Creatinine 1.3 mg/dL (0.7-1.3) 11/17/24 06:20
Glucose 84 mg/dl (70-99) 11/17/24 06:20
Troponins
11/14/24
12:36
Troponin I 0.042 H*
Vital Signs and I&O:
Vital Signs
Temp Pulse Resp BP Pulse Ox
37.1 C 64 18 133/61 97
11/17/24 11:10 11/17/24 11:10 11/17/24 11:10 11/17/24 11:10 11/17/24 11:10
Vital Signs
Temp Pulse Resp BP Pulse Ox
37.1 C 64 18 133/61 97
11/17/24 11:10 11/17/24 11:10 11/17/24 11:10 11/17/24 11:10 11/17/24 11:10
Intake & Output
11/15/24 11/16/24 11/17/24 11/18/24
07:59 07:59 07:59 07:59
Intake Total 480 / 480 720 / 720 1440 / 1440
Output Total 475 / 475 850 / 850 700 / 700
Balance 5 / 5 -130 / -130 740 / 740
Physical Exam
Physical Exam
See above
[2024-11-17] MEDS: FERRLECIT 110 MG IV (13:14)
--- NOTE | 2024-11-17 13:57 | W.PN.HOSP.TC ---
Today's Communication/Plan
-
Seems to be responding to IV diuresis. Continue IV Lasix at the current dose
Follow creatinine and potassium level.
Assessment / Plan
Assessment / Plan
Impression:
Presentation with worsening of shortness of breath, weight gain, worsening of lower extremity edema
Acute CHF preserved EF exacerbation.
Other conditions:
Chronic hypoxic respiratory failure on home O2 at 2 L intermittently.
Chronic CHF preserved EF
-ECHO 10/21/24: EF 60 to 65%, mild concentric LVH, stage III diastolic dysfunction, moderately dilated atria, mild MAC, moderate MR, mild TR, PAP 52 mmHg, ascending aorta top normal at 3.7 cm
Moderate MR
Pulmonary hypertension
CKD stage IIIb baseline creatinine 1.3.
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
Essential hypertension
Dyslipidemia.
GERD.
COPD.
Chronic anemia
Hypoalbuminemia.
Plan:
Acute CHF exacerbation
Echo as above.
States to be compliant with Lasix, although presents with worsening of exertional dyspnea, worsening of peripheral edema (part of that could be chronic lymphedema) JVD on exam.
'If this is cardiorenal state in the patient with CKD.
IV diuresis with Lasix 60 mg IV twice daily monitor renal function, daily weights closely.
Cardiology input appreciated.
Hold valsartan and Norvasc to give room in BP for IV diuresis.
Hold Pletal acutely
Continue Coreg
CKD 3
Monitor renal function with diuresis closely
Consider nephrology evaluation
Anemia of chronic disease per
Recent studies consistent with mixed picture of anemia of CKD and mild iron deficiency.
Will need GI evaluation as outpatient once cardiovascular status is optimized.
Check EPO level
IV iron.
Essential hypertension
Continue hydralazine, Coreg. Hold Norvasc and losartan.
GERD
On PPI
Full code.
DVT prophylaxis with heparin.
Plan of care discussed with patient's family at the bedside.
Anticipated Discharge: 24 - 48 hours
Subjective/Interval History
-
Date of Service: November 17, 2024
Objective Data
-
Labs:
Laboratory Results
11/17/24
06:20
WBC 7.0
Hgb 10.0 L
Hct 32.6 L
Plt Count 166
Sodium 138
Potassium 4.4
Chloride 103
Carbon Dioxide 35 H
BUN 32 H
Creatinine 1.3
Glucose 84
Calcium 7.3 L
Vital Signs:
Vital Signs
Temp Pulse Resp BP Pulse Ox
98.7 F 64 18 133/61 97
11/17/24 11:10 11/17/24 11:10 11/17/24 11:10 11/17/24 11:10 11/17/24 11:10
I&O
11/16/24 11/17/24 11/18/24
06:59 06:59 06:59
Intake Total 960 / 960 1440 / 1440
Output Total 1150 / 1150 700 / 700
Balance -190 / -190 740 / 740
Physical Exam
-
General: Well Developed and No Apparent Distress
HEENT: Normocephalic, Atraumatic and Moist Mucous Membranes
Respiratory: Rales
Cardiac: Regular Rhythm, S1/S2, Murmur and JVD; Negative Rub or Gallop
GI: Soft, Nontender, Nondistended and Normal Bowel Sounds; Negative Organomegaly
Rectal: Deferred by Provider
Musculoskeletal: No Clubbing, No Cyanosis and No Edema
Skin: Negative Rash
Neuro: Awake, Alert, Oriented and Nonfocal/Grossly Intact
[2024-11-17 15:08] VITALS: BP 138/70
[2024-11-17] MEDS: ALDACTONE 12.5 MG PO (17:46)
[2024-11-17 18:13] LABS: Erythropoietin (EPO) 7 mU/mL (4-27)
[2024-11-17] MEDS: ZOLOFT 25 MG PO (21:34)
[2024-11-17 23:30] VITALS: BP 118/54
[2024-11-18] VITALS (7 sets, daily range): BP systolic 102–150; BP diastolic 52–73; BMI 27.3
[2024-11-18] MEDS: SPIRIVA RESPIMAT 2.5 MCG 2 PUFF INH (08:15)
[2024-11-18] MEDS: SYMBICORT 80/4.5 MCG INHALER 2 PUFF INH ×2 (08:15→19:42)
[2024-11-18 08:35] LABS: Blood Urea Nitrogen 30 mg/dl (9-20); Calcium 7.2 mg/dl (8.4-10.2); Carbon Dioxide 35 mmol/L (22-30); Chloride 103 mmol/L (98-107); Estimated Creatinine Clearance 50 ml/min; Glucose 82 mg/dl (70-99); Potassium 4.3 mmol/L (3.5-5.1); Sodium 139 mmol/L (135-145); eGFR > 60.00
[2024-11-18] MEDS: MIRALAX 17 GRAMS PO (09:00)
[2024-11-18] MEDS: APRESOLINE 25 MG PO ×2 (09:01→21:21)
[2024-11-18] MEDS: ALDACTONE 12.5 MG PO (09:01)
[2024-11-18] MEDS: COREG 6.25 MG PO ×2 (09:01→21:22)
[2024-11-18] MEDS: HEPARIN 5000 UNITS SC ×3 (09:02→23:59)
[2024-11-18] MEDS: PROTONIX 40 MG PO (09:02)
[2024-11-18] MEDS: FARXIGA 10 MG PO (09:02)
[2024-11-18] MEDS: LASIX 60 MG IV ×2 (09:10→17:46)
[2024-11-18] MEDS: FLUSH (NSS) 2 FLUSH IV (09:11)
[2024-11-18] MEDS: REFRESH CELLUVISC GEL 1 DROPS BOTH EYES ×3 (09:11→21:22)
--- NOTE | 2024-11-18 09:28 | PN.CDI ---
CDI
- -
CDI:
Physician Documentation Request
Admit Date: 11/14/24 16:17
Dear Doctor Hany,
Clinical Indicators:
Patient admitted with acute on chronic HFpEF.
11/14 ED report, 'Pt is normally on NC Oxygen to sleep only '
11/15 PN, 'Chronic hypoxic respiratory failure on home O2 at 2 L intermittently'
Please clarify the patient's respiratory status:
Chronic hypoxemic respiratory insufficiency (intermittent home 02 use)
Chronic hypoxemic respiratory failure (continuous home 02 use)
Other
Use of terms such as suspected, likely, concern for, or probable (associated with a specific diagnosis that is being evaluated, monitored, or treated as if it exists) are acceptable and can be coded in the inpatient setting, when documented at the
time of discharge.
Thank you,
Reina Patel RN BSN
CDI Specialist
available via tiger text
Please use your independent medical judgment in providing your response.
--- NOTE | 2024-11-18 10:42 | W.PN.CARDCBS ---
Addendum entered and electronically signed by Chin Gunderson MD 11/18/24 12:12:
Date of Service: November 18, 2024:
He feels a bit better day by day
Medications: DuoNebs, carvedilol 6.25 twice daily, hydralazine 25 twice daily, pantoprazole 40 mg a day, sertraline 25 mg daily, subcu heparin, Spiriva, Symbicort, furosemide 60 IV twice daily, iron, dapagliflozin 10 mg a day, spironolactone 12.5
daily, valsartan on hold
138/71, pulse 65, respiratory 20, afebrile, weight is 81.4 kg, down 0.8 kg, intake and output likely incomplete,, neck veins still modestly elevated, however 8-10, lungs are relatively clear, sounds more like faint wheezes, rare rhonchi rather than
wet rales., Trace to 1+ edema, abdomen
BUN and creatinine are 30 and 1.1, potassium is 4.3
Impression:
See below
Plan:
He continues to improve. Weight is slowly drifting down. Would continue furosemide 60 mg IV twice daily probably until tomorrow and convert to oral in a.m., probably elevated 60 twice daily possibly 80 twice daily.
He is starting spironolactone, now on Farxiga as well. Follow BMP.
Valsartan is on hold, we can make a decision about restarting in a.m. If blood pressure reasonable, would favor not restarting as there is no clear-cut indication for ARB therapy and HFpEF.
Would discharge off amlodipine.
We will arrange for cardiac follow-up.
Original Note:
Today's Communication / Plan
-
Farxiga started today
Consider resuming Diovan at lower dose of 80 mg if creat stable in am
Likely transition to oral Lasix within next 24 hours
Would keep off Amlodipine at d/c
Impression / Plan
-
Primary Manager Sterile Processing: Dr. Elizondo
Impression:
Presentation 11/14/2024 with recurrent weight gain, LE edema, MUNOZ
Acute HFpEF, proBNP, proBNP 3890
Abnormal troponin, suspect nonischemic myocardial injury secondary to acute heart failure exacerbation
Admission to 10/31-11/05/24 for new HFpEF
Atrial tachycardia
Moderate MR
CKD
PAD, abnormal L IVAN, mod to severe claudication
HTN
HLD
GERD
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
Hernia
Anemia
Hypoalbuminemia
ECHO 10/21/24: EF 60 to 65%, mild concentric LVH, stage III diastolic dysfunction, moderately dilated atria, mild MAC, moderate MR, mild TR, PAP 52 mmHg, ascending aorta top normal at 3.7 cm
Plan:
-Patient presented 11/14/2024 to [facility] due to recurrent weight gain, lower extremity edema, dyspnea on exertion despite increase in outpt diuresis. Recent admission to [facility] 10/31-11/05/24 for new heart failure
-Continues to improve symptomatically. Still has coarse breath sounds or right side but overall much better. Edema improved also.
-Weight down at least 10 pounds, current weight 179 lbs. Continue Lasix to 60 mg twice daily IV. Aldactone 12.5 mg added 11/17/24
-Creatinine stable at 1.1, Potassium 4.3
-Continue carvedilol, Farxiga and hydralazine. Farxiga new this admission
-Valsartan and Amlodipine have been on hold since admission. Would consider resuming Diovan at lower dose of 80 mg daily
-Continues on 3 L oxygen via nasal cannula. Patient has baseline oxygen requirements at 2 L/min
-Given CHF be best to avoid cilostazol
-Echo with results as above
-Some element of his edema may be noncardiogenic as he has hypoalbuminemia and low protein. Workup/repletion per primary service
-Amlodipine which could be contributing to edema. Keep off amlodipine.
-Rare brief runs of atrial tachycardia noted on telemetry but overall heart rate reasonably controlled. Continue Coreg
-He is noted to be anemic, hgb 10.0-11.1. Iron studies last admission abnormal. Patient has received iron repletion this admission.
-May benefit from PT/OT during admission
HPI 11/15/2024:
History of Present Illness:
Patient is an 84-year-old male with past medical history of hypertension, hyperlipidemia, GERD, recent diagnosis COPD with former smoking who presents to [facility] emergency room for evaluation of worsening lower extremity edema since
discharge. He had presented with LE edema 10/31 and was admitted. Diuresed well with IV lasix 40mg BID and was discharged 11/05/24 at weight of 186 pounds on po lasix 40mg daily. Patient and family at bedside report since DC he has gained 12 pounds
and edema is back in B/L legs up to groin area. He was seen in cardiology office 11/12 and felt to be in failure and lasix dose was increased to 40mg BID without improvement so came to ER for eval. proBNP 3890 and CXR with evidence of improved CHF vs
PNA compared to prior from 10/2024. Son reports he has been compliant with fluid and salt restrictions at home. cardiology consulted for evaluation.
Progress Note - Manager Sterile Processing
Subjective
Date of Service: November 18, 2024
patient seen and examined. Patient resting comfortably in bed wearing oxygen. Notes improvement of shortness of breath and lower extremity edema.
Objective
Labs:
11/17/24 06:20
11/18/24 07:29
Labs
Hgb 10.0 g/dL (13.0-18.0) L 11/17/24 06:20
Hct 32.6 % (39.0-52.0) L 11/17/24 06:20
Plt Count 166 10^3/uL (130-400) 11/17/24 06:20
Sodium 139 mmol/L (135-145) 11/18/24 07:29
Potassium 4.3 mmol/L (3.5-5.1) 11/18/24 07:29
BUN 30 mg/dl (9-20) H 11/18/24 07:29
Creatinine 1.1 mg/dL (0.7-1.3) 11/18/24 07:29
Glucose 82 mg/dl (70-99) 11/18/24 07:29
Vital Signs and I&O:
Vital Signs
Temp Pulse Resp BP Pulse Ox
98.1 F 80 20 120/61 96
11/18/24 07:14 11/18/24 08:18 11/18/24 08:18 11/18/24 07:14 11/18/24 07:14
Vital Signs
Temp Pulse Resp BP Pulse Ox
98.1 F 80 20 120/61 96
11/18/24 07:14 11/18/24 08:18 11/18/24 08:18 11/18/24 07:14 11/18/24 07:14
Intake & Output
11/16/24 11/17/24 11/18/24 11/19/24
06:59 06:59 06:59 06:59
Intake Total 960 / 960 1440 / 1440 720 / 720
Output Total 1150 / 1150 700 / 700 125 / 125
Balance -190 / -190 740 / 740 720 / 720 -125 / -125
Physical Exam
Physical Exam
GEN: No distress, awake, Ox3
HEENT: supple, anicteric, mmm
LUNGS: Still with coarse BS primarily right middle lobe; wearing oxygen at 3 L/min
CV: Reg, S1/S2, 1/6 syst LSB murmur
ABD: soft, BS+, NT/ND
EXT: Trace to +1 LE with chronic skin changes c/w chronic venous stasis
NEURO: Gross non-focal
SKIN: No rash, warm, dry, pink
[2024-11-18] MEDS: FLUSH (NSS) 1 FLUSH IV ×2 (14:53→17:48)
[2024-11-18] MEDS: FERRLECIT 110 MG IV (14:53)
--- NOTE | 2024-11-18 15:12 | W.PN.HOSP.TC ---
Today's Communication/Plan
-
Respiratory status and weight slowly improving.
Continue IV diuresis Lasix 60 mg IV twice daily with addition of Aldactone
Assessment / Plan
Assessment / Plan
Impression:
Presentation with worsening of shortness of breath, weight gain, worsening of lower extremity edema
Acute CHF preserved EF exacerbation.
Other conditions:
Chronic hypoxic respiratory failure on home O2 at 2 L intermittently.
Chronic CHF preserved EF
-ECHO 10/21/24: EF 60 to 65%, mild concentric LVH, stage III diastolic dysfunction, moderately dilated atria, mild MAC, moderate MR, mild TR, PAP 52 mmHg, ascending aorta top normal at 3.7 cm
Moderate MR
Pulmonary hypertension
CKD stage IIIb baseline creatinine 1.3.
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
Essential hypertension
Dyslipidemia.
GERD.
COPD.
Chronic anemia
Hypoalbuminemia.
Plan:
Acute CHF exacerbation
Echo as above.
States to be compliant with Lasix, although presents with worsening of exertional dyspnea, worsening of peripheral edema (part of that could be chronic lymphedema) JVD on exam.
'If this is cardiorenal state in the patient with CKD.
IV diuresis with Lasix 60 mg IV twice daily monitor renal function, daily weights closely.
Cardiology input appreciated.
Hold valsartan and Norvasc to give room in BP for IV diuresis.
Hold Pletal acutely
Continue Coreg
CKD 3
Monitor renal function with diuresis closely
Consider nephrology evaluation
Anemia of chronic disease per
Recent studies consistent with mixed picture of anemia of CKD and mild iron deficiency.
Will need GI evaluation as outpatient once cardiovascular status is optimized.
Check EPO level
IV iron.
Essential hypertension
Continue hydralazine, Coreg. Hold Norvasc and losartan.
GERD
On PPI
Full code.
DVT prophylaxis with heparin.
Plan of care discussed with patient's family at the bedside.
Anticipated Discharge: > 48 hours
Subjective/Interval History
-
Date of Service: November 18, 2024
Objective Data
-
Labs:
Laboratory Results
11/18/24
07:29
Sodium 139
Potassium 4.3
Chloride 103
Carbon Dioxide 35 H
BUN 30 H
Creatinine 1.1
Glucose 82
Calcium 7.2 L
Vital Signs:
Vital Signs
Temp Pulse Resp BP Pulse Ox
98.4 F 62 20 138/69 97
11/18/24 15:08 11/18/24 15:08 11/18/24 15:08 11/18/24 15:08 11/18/24 15:08
I&O
11/17/24 11/18/24 11/19/24
06:59 06:59 06:59
Intake Total 1440 / 1440 720 / 720 110 / 110
Output Total 700 / 700 575 / 575
Balance 740 / 740 720 / 720 -465 / -465
Physical Exam
-
General: Well Developed and No Apparent Distress
HEENT: Normocephalic, Atraumatic and Moist Mucous Membranes
Respiratory: Rales
Cardiac: Regular Rhythm, S1/S2, Murmur and JVD; Negative Rub or Gallop
GI: Soft, Nontender, Nondistended and Normal Bowel Sounds; Negative Organomegaly
Rectal: Deferred by Provider
Musculoskeletal: No Clubbing, No Cyanosis and No Edema
Skin: Negative Rash
Neuro: Awake, Alert, Oriented and Nonfocal/Grossly Intact
[2024-11-18] MEDS: ZOLOFT 25 MG PO (21:23)
--- NOTE | 2024-11-18 21:59 | PTCARENOTE ---
Report called to IVU. Pt to be transferred via wheelchair with belongings.
--- NOTE | 2024-11-18 23:23 | PTCARENOTE ---
Received patient @ 2220. Patient awake and oriented, but tired. BP 150/73, NSR 60s with occasional PACs, 93% on 3L. Discussed plan of care for evening. Patient verbalized understanding, stated 'I just really want to sleep.' Call [facility] within reach.
[2024-11-19] VITALS (8 sets, daily range): BP systolic 122–154; BP diastolic 61–81; PULSE 57; O2SAT 95; BMI 26.8
[2024-11-19] MEDS: DUONEB 3 ML INH ×2 (05:04→23:49)
[2024-11-19 05:15] LABS: % Basophils 0.7 % (0-2); % Eosinophils 7.4 % (0-6); % Immature Granulocytes 0.1 % (0-0.5); % Lymphocytes 25.3 % (20.5-51.1); % Monocytes 12.1 % (1.7-9.3); % Neutrophils 54.4 % (42.2-75.2); Absolute Basophils 0.1 10^3/uL (0-0.2); Absolute Eosinophils 0.5 10^3/uL (0-0.7); Absolute Lymphocytes 1.8 10^3/uL (1.2-3.4); Absolute Monocytes 0.9 10^3/uL (0.1-0.6); Absolute Neutrophils 3.8 10^3/uL (1.4-6.5); Hemoglobin 10.3 g/dL (13.0-18.0); Mean Corp Hgb Conc. 30.3 g/dL (33.0-37.0); Mean Corpuscular Hgb 25.8 pg (27.0-31.0); Nucleated Red Blood Cells % 0 % (-); Platelet Count 160 10^3/uL (130-400); Red Cell Dist. Width 17.2 % (11.5-14.5)
[2024-11-19 05:37] LABS: Blood Urea Nitrogen 30 mg/dl (9-20); Calcium 7.2 mg/dl (8.4-10.2); Carbon Dioxide 37 mmol/L (22-30); Chloride 101 mmol/L (98-107); Estimated Creatinine Clearance 50 ml/min; Glucose 84 mg/dl (70-99); Potassium 4.2 mmol/L (3.5-5.1); Sodium 138 mmol/L (135-145); eGFR > 60.00
[2024-11-19] MEDS: FLUSH (NSS) 1 FLUSH IV (08:47)
[2024-11-19] MEDS: LASIX 60 MG IV ×2 (08:47→16:23)
[2024-11-19] MEDS: PROTONIX 40 MG PO (08:50)
[2024-11-19] MEDS: ALDACTONE 12.5 MG PO (08:51)
[2024-11-19] MEDS: FARXIGA 10 MG PO (08:51)
[2024-11-19] MEDS: APRESOLINE 25 MG PO ×2 (08:51→19:52)
[2024-11-19] MEDS: COREG 6.25 MG PO ×2 (08:51→19:53)
[2024-11-19] MEDS: HEPARIN 5000 UNITS SC ×3 (08:52→23:14)
[2024-11-19] MEDS: SPIRIVA RESPIMAT 2.5 MCG 2 PUFF INH (08:52)
[2024-11-19] MEDS: SYMBICORT 80/4.5 MCG INHALER 2 PUFF INH ×2 (08:52→20:23)
[2024-11-19] MEDS: REFRESH CELLUVISC GEL 1 DROPS BOTH EYES ×3 (08:53→23:14)
[2024-11-19] MEDS: MIRALAX 17 GRAMS PO (09:04)
--- NOTE | 2024-11-19 09:21 | W.PN.CARDCBS ---
Addendum entered and electronically signed by See Santa DO 11/19/24 11:38:
I saw and examined the patient.
The Switchboard Mechanic's note was reviewed and I agree with the note.
Comment:
Plan:
Cont IV lasix diuresis
Cont Iron repletion
Cont supportive care
Compression stockings for multifactorial LE edema
Aldactone and Farxiga were added this admit.
Monitor lytes and bp.
Diet consult
Pt to receive albumin
PT/OT eval.
Original Note:
Today's Communication / Plan
-
IV lasix
iron repletion
consider for albumin
compression stockings
dietary consult
PT eval
Impression / Plan
-
Primary Rn Orthopaedic: Dr. Elizondo
Impression:
Presentation 11/14/2024 with recurrent weight gain, LE edema, MUNOZ
Acute HFpEF, proBNP, proBNP 3890
Abnormal troponin, suspect nonischemic myocardial injury secondary to acute heart failure exacerbation
Admission to 10/31-11/05/24 for new HFpEF
Atrial tachycardia
Moderate MR
CKD
PAD, abnormal L IVAN, mod to severe claudication
HTN
HLD
GERD
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
Hernia
Anemia
Hypoalbuminemia
ECHO 10/21/24: EF 60 to 65%, mild concentric LVH, stage III diastolic dysfunction, moderately dilated atria, mild MAC, moderate MR, mild TR, PAP 52 mmHg, ascending aorta top normal at 3.7 cm
Plan:
-returned to due to recurrent weight gain, lower extremity edema, MUNOZ despite escalating OP diuretic therapy. remains with significant edema and c/o continued SOB
-continue IV diuresis. weight down 15 pounds thus far from admission if accurate. establishing new dry weight. prior to admission was on po lasix 40mg daily increased several days prior to admission to 40mg BID
-Cr improved from admission, 1.1 on 11/19
-wean supp O2 as able
-CHF education
-compression therapy ordered by me
-he is noted to be anemic with abnormal iron studies and is receiving iron repletion.
-element of his edema may be noncardiogenic as he has significant hypoalbuminemia and low protein. Would consider albumin repletion as could be contributing to significant lower extremity edema. dietary consult ordered by me
-echo with results as above
-continue coreg. farxiga and aldactone added this admission. OP valsartan on hold. OP norvasc stopped
-Given CHF cilostazol stopped
-PT eval ordered by me
HPI 11/15/2024:
History of Present Illness:
Patient is an 84-year-old male with past medical history of hypertension, hyperlipidemia, GERD, recent diagnosis COPD with former smoking who presents to [facility] emergency room for evaluation of worsening lower extremity edema since
discharge. He had presented with LE edema 10/31 and was admitted. Diuresed well with IV lasix 40mg BID and was discharged 11/05/24 at weight of 186 pounds on po lasix 40mg daily. Patient and family at bedside report since DC he has gained 12 pounds
and edema is back in B/L legs up to groin area. He was seen in cardiology office 11/12 and felt to be in failure and lasix dose was increased to 40mg BID without improvement so came to ER for eval. proBNP 3890 and CXR with evidence of improved CHF vs
PNA compared to prior from 10/2024. Son reports he has been compliant with fluid and salt restrictions at home. cardiology consulted for evaluation.
Progress Note - Rn Orthopaedic
Subjective
Date of Service: November 19, 2024
reports remains with SOB
Objective
Labs:
11/19/24 04:53
11/19/24 04:53
Labs
Hgb 10.3 g/dL (13.0-18.0) L 11/19/24 04:53
Hct 34.0 % (39.0-52.0) L 11/19/24 04:53
Plt Count 160 10^3/uL (130-400) 11/19/24 04:53
Sodium 138 mmol/L (135-145) 11/19/24 04:53
Potassium 4.2 mmol/L (3.5-5.1) 11/19/24 04:53
BUN 30 mg/dl (9-20) H 11/19/24 04:53
Creatinine 1.1 mg/dL (0.7-1.3) 11/19/24 04:53
Glucose 84 mg/dl (70-99) 11/19/24 04:53
Vital Signs and I&O:
Vital Signs
Temp Pulse Resp BP Pulse Ox
97.8 F 65 18 154/74 93
11/19/24 04:41 11/19/24 08:55 11/19/24 08:55 11/19/24 08:13 11/19/24 08:55
Vital Signs
Temp Pulse Resp BP Pulse Ox
97.8 F 65 18 154/74 93
11/19/24 04:41 11/19/24 08:55 11/19/24 08:55 11/19/24 08:13 11/19/24 08:55
Intake & Output
11/17/24 11/18/24 11/19/24 11/20/24
07:59 07:59 07:59 07:59
Intake Total 1440 / 1440 720 / 720 710 / 710
Output Total 700 / 700 575 / 575
Balance 740 / 740 720 / 720 135 / 135
Physical Exam
Physical Exam
GEN: No distress, awake, alert, oriented x3. on supp O2. sitting in chair
HEENT: supple, anicteric, mmm, eomi
LUNGS: Crackles B/L bases, no wheezes
CV: Reg, S1/S2, 1/6 murmur
ABD: soft, BS+, NT/ND
EXT: No cyanosis, clubbing. 3+ edema of B/L LE
NEURO: Gross non-focal
SKIN: Warm, pink, dry. No rash
--- NOTE | 2024-11-19 11:05 | CM ---
Chart reviewed. Patient is independent of ADLS, lives with his in a multilevel home, 1st floor set up, 2 BRO, 0 DME. Patient is current with [facility]. Referral sent to resume services. Patient wears home O2 through [employer].
Plan is for the patient to return home with [facility]. CM to follow
[2024-11-19] MEDS: FERRLECIT 110 MG IV (15:08)
--- NOTE | 2024-11-19 15:33 | W.PN.HOSP.TC ---
Today's Communication/Plan
-
Continue IV diuresis
Attempt to provide albumin with IV Lasix/p.m. dose
Follow daily weight and renal function.
Assessment / Plan
Assessment / Plan
Impression:
Presentation with worsening of shortness of breath, weight gain, worsening of lower extremity edema
Acute CHF preserved EF exacerbation.
Other conditions:
Chronic hypoxic respiratory failure on home O2 at 2 L intermittently.
Chronic CHF preserved EF
-ECHO 10/21/24: EF 60 to 65%, mild concentric LVH, stage III diastolic dysfunction, moderately dilated atria, mild MAC, moderate MR, mild TR, PAP 52 mmHg, ascending aorta top normal at 3.7 cm
Moderate MR
Pulmonary hypertension
CKD stage IIIb baseline creatinine 1.3.
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
Essential hypertension
Dyslipidemia.
GERD.
COPD.
Chronic anemia
Hypoalbuminemia.
Plan:
Acute CHF exacerbation
Echo as above.
States to be compliant with Lasix, although presents with worsening of exertional dyspnea, worsening of peripheral edema (part of that could be chronic lymphedema) JVD on exam.
'If this is cardiorenal state in the patient with CKD.
IV diuresis with Lasix 60 mg IV twice daily monitor renal function, daily weights closely.
Cardiology input appreciated.
Hold valsartan and Norvasc to give room in BP for IV diuresis.
Hold Pletal acutely
Continue Coreg
CKD 3
Monitor renal function with diuresis closely
Consider nephrology evaluation
Anemia of chronic disease per
Recent studies consistent with mixed picture of anemia of CKD and mild iron deficiency.
Will need GI evaluation as outpatient once cardiovascular status is optimized.
Check EPO level
IV iron.
Essential hypertension
Continue hydralazine, Coreg. Hold Norvasc and losartan.
GERD
On PPI
Full code.
DVT prophylaxis with heparin.
Plan of care discussed with patient's family at the bedside.
Anticipated Discharge: > 48 hours
Subjective/Interval History
-
Date of Service: November 19, 2024
Objective Data
-
Labs:
Laboratory Results
11/19/24
04:53
WBC 7.0
Hgb 10.3 L
Hct 34.0 L
Plt Count 160
Sodium 138
Potassium 4.2
Chloride 101
Carbon Dioxide 37 H
BUN 30 H
Creatinine 1.1
Glucose 84
Calcium 7.2 L
Vital Signs:
Vital Signs
Temp Pulse Resp BP Pulse Ox
97.3 F 58 18 138/63 98
11/19/24 11:28 11/19/24 12:00 11/19/24 11:28 11/19/24 11:30 11/19/24 11:28
I&O
11/18/24 11/19/24 11/20/24
06:59 06:59 06:59
Intake Total 720 / 720 710 / 710
Output Total 575 / 575 475 / 475
Balance 720 / 720 135 / 135 -475 / -475
Physical Exam
-
General: Well Developed and No Apparent Distress
HEENT: Normocephalic, Atraumatic and Moist Mucous Membranes
Respiratory: Rales
Cardiac: Regular Rhythm, S1/S2, Murmur and JVD; Negative Rub or Gallop
GI: Soft, Nontender, Nondistended and Normal Bowel Sounds; Negative Organomegaly
Rectal: Deferred by Provider
Musculoskeletal: No Clubbing, No Cyanosis and No Edema
Skin: Negative Rash
Neuro: Awake, Alert, Oriented and Nonfocal/Grossly Intact
[2024-11-19] MEDS: ALBUMIN 5% 250 IV ×2 (16:12→17:26)
--- NOTE | 2024-11-19 18:00 | PTCARENOTE ---
Pt remains on 3LNC. Denies any pain or sob. OOB with 1 assist to BR and the chair. Voiding clear yellow urine.
--- NOTE | 2024-11-19 21:16 | PTCARENOTE ---
Pt sleeping most of evening shift easily arousable. Dyspneic with minimal exertion in bed. harsh non productive cough noted. Exp wheeze and fine crackles heard throughout. 3 lit n/c continued. Albumin bag completed at approx 8pm. iv site patent and
flushed. Sinus on telemetry.
call [facility] and 2 urinals within pts reach.
[2024-11-19] MEDS: ZOLOFT 25 MG PO (23:18)
--- NOTE | 2024-11-20 00:40 | SUR.OPER ---
Addendum entered by Kristie Nash RN 11/20/24 00:59:
nurses note, not operative note
Original Note:
Pt rec'd mn tx at 2350 after nursing called rsp for RR 28-32 , audible wheezing from pt. After treatment at 0040 pt with moist non productive cough. sats 89- 90% on 3 lit n/c. O2 increased to 4 lit n/c with cont pulse ox monitored
--- NOTE | 2024-11-20 01:01 | PTCARENOTE ---
Pt sats improving to 92% on 4 lit n/c . RR remains 24-28. nurse remains at bedside. Pt trying to bring up sputum, sitting upright in bed
--- NOTE | 2024-11-20 01:22 | PTCARENOTE ---
RR improved but pt c/o burning in his throat. Pt states after receiving mn tx it started. ' I think it was to strong for me, I breathe through my mouth'.
[2024-11-20] MEDS: MAALOX 30 ML PO (01:47)
--- NOTE | 2024-11-20 01:51 | PTCARENOTE ---
Pt continues to c/o burning throat and chest. ecg completed rule out changes. PA eval ecg no changes/nothing acute noted. Maalox ordered for c/o burning throat and chest. dose given. nursing remains at bedside
--- NOTE | 2024-11-20 03:12 | PTCARENOTE ---
Pt resting with eyes closed. no labored breathing noted. sat 95 % on 4 lit n/c.
[2024-11-20 05:11] VITALS: BP 142/75
--- NOTE | 2024-11-20 05:17 | PTCARENOTE ---
Pt more relaxed, sleeping on his side no complaints at this time. O2 on 4 lit 97%. O2 decreased to 3 lit.
[2024-11-20 07:25] VITALS: BP 156/80
[2024-11-20 08:00] VITALS: BMI 26.5
[2024-11-20] MEDS: ALDACTONE 12.5 MG PO (08:08)
[2024-11-20] MEDS: APRESOLINE 25 MG PO ×2 (08:10→19:56)
[2024-11-20] MEDS: PROTONIX 40 MG PO (08:10)
[2024-11-20] MEDS: FARXIGA 10 MG PO (08:10)
[2024-11-20] MEDS: COREG 6.25 MG PO ×2 (08:10→19:55)
[2024-11-20] MEDS: HEPARIN 5000 UNITS SC ×3 (08:41→23:21)
[2024-11-20] MEDS: REFRESH CELLUVISC GEL 1 DROPS BOTH EYES ×3 (08:41→23:21)
[2024-11-20] MEDS: LASIX 60 MG IV (08:42)
[2024-11-20] MEDS: MIRALAX PO (08:44)
--- NOTE | 2024-11-20 08:46 | W.PN.CARDCBS ---
Addendum entered and electronically signed by Cinthya Nuñez MD 11/20/24 10:18:
I saw and examined the patient.
The Orthopedic Cast Specialist's note was reviewed and I agree with the note.
Comment: Patient examined by me. Short of breath at rest sitting in the chair. Lower extremity edema noted with firm edema. Crackles at the bases bilaterally. Spoke with his son also at the bedside.
Volume overload, hypoalbuminemia, anemia and possibly underlying lung disease recently seen by pulmonary. There was also the question of a possible rheumatologic condition that was being evaluated as an outpatient. Plan at this time:
-Recheck chest x-ray given increased shortness of breath
-Increase IV Lasix to 80 mg IV twice daily
-Follow labs
-Consider nephrology consult for hypoalbuminemia and initial red blood cells in urine in the setting of albumin also noted in the urine
-Consider pulmonary consult in addition.
Discussed with patient at length.
Original Note:
Today's Communication / Plan
-
continue IV diuresis, dose increased today
iron repletion
s/p albumin 11/19, awaiting repeat
repeat urine protein/Cr ratio and obtain US kidneys and bladder. if remains abnormal will have nephrology see patient
Impression / Plan
-
Primary Digital Service Engineer: Dr. Elizondo
Impression:
Presentation 11/14/2024 with recurrent weight gain, LE edema, MUNOZ
Acute HFpEF, proBNP, proBNP 3890
Abnormal troponin, suspect nonischemic myocardial injury secondary to acute heart failure exacerbation
Admission to 10/31-11/05/24 for new HFpEF
Atrial tachycardia
Moderate MR
CKD
PAD, abnormal L IVAN, mod to severe claudication
HTN
HLD
GERD
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
Hernia
Anemia
Hypoalbuminemia
ECHO 10/21/24: EF 60 to 65%, mild concentric LVH, stage III diastolic dysfunction, moderately dilated atria, mild MAC, moderate MR, mild TR, PAP 52 mmHg, ascending aorta top normal at 3.7 cm
Plan:
-had admission 10/31-11/05 for new CHF. then returned to due to recurrent weight gain, lower extremity edema, MUNOZ despite escalating OP diuretic therapy. remains with edema and c/o continued SOB although improving from admission
-continue IV diuresis - dose increased to 80mg IV BID. weight down 15 pounds thus far from admission if accurate. establishing new dry weight. prior to admission was on po lasix 40mg daily increased several days prior to admission to 40mg BID
-Cr improved from admission, 1.1 on 11/19, Cr 11/20 pending
-wean supp O2 as able
-CHF education
-continue compression therapy
-he is noted to be anemic with abnormal iron studies and is receiving iron repletion.
-element of his edema suspected noncardiogenic as he has significant hypoalbuminemia and low protein. received albumin 11/19, repeat albumin pending 11/20. he is noted to have 2+ albumin and 3+ occult blood in his urine. Protein/Cr ratio was elevated
in October, 7.6. will obtain kidney and bladder US and repeat urine protein/Cr ratio. consider nephrology eval. dietary following
-echo with results as above
-continue coreg. farxiga and aldactone added this admission. OP valsartan on hold. OP norvasc stopped
-Given CHF cilostazol stopped
-PT eval
-d/w nursing
HPI 11/15/2024:
History of Present Illness:
Patient is an 84-year-old male with past medical history of hypertension, hyperlipidemia, GERD, recent diagnosis COPD with former smoking who presents to [facility] emergency room for evaluation of worsening lower extremity edema since
discharge. He had presented with LE edema 10/31 and was admitted. Diuresed well with IV lasix 40mg BID and was discharged 11/05/24 at weight of 186 pounds on po lasix 40mg daily. Patient and family at bedside report since DC he has gained 12 pounds
and edema is back in B/L legs up to groin area. He was seen in cardiology office 11/12 and felt to be in failure and lasix dose was increased to 40mg BID without improvement so came to ER for eval. proBNP 3890 and CXR with evidence of improved CHF vs
PNA compared to prior from 10/2024. Son reports he has been compliant with fluid and salt restrictions at home. cardiology consulted for evaluation.
Progress Note - Digital Service Engineer
Subjective
Date of Service: November 20, 2024
reports remains with heavy breathing
Objective
Labs:
11/19/24 04:53
Labs
Hgb 10.3 g/dL (13.0-18.0) L 11/19/24 04:53
Hct 34.0 % (39.0-52.0) L 11/19/24 04:53
Plt Count 160 10^3/uL (130-400) 11/19/24 04:53
Sodium 138 mmol/L (135-145) 11/19/24 04:53
Potassium 4.2 mmol/L (3.5-5.1) 11/19/24 04:53
BUN 30 mg/dl (9-20) H 11/19/24 04:53
Creatinine 1.1 mg/dL (0.7-1.3) 11/19/24 04:53
Glucose 84 mg/dl (70-99) 11/19/24 04:53
Vital Signs and I&O:
Vital Signs
Temp Pulse Resp BP Pulse Ox
97.4 F 74 18 156/80 91
11/20/24 07:27 11/20/24 08:08 11/20/24 07:27 11/20/24 08:08 11/20/24 07:27
Vital Signs
Temp Pulse Resp BP Pulse Ox
97.4 F 74 18 156/80 91
11/20/24 07:27 11/20/24 08:08 11/20/24 07:27 11/20/24 08:08 11/20/24 07:27
Intake & Output
11/18/24 11/19/24 11/20/24 11/21/24
07:59 07:59 07:59 07:59
Intake Total 720 / 720 710 / 710 700 / 700
Output Total 575 / 575 2024
Balance 720 / 720 135 / 135 -1325 / -1325
Physical Exam
Physical Exam
GEN: No distress, awake, alert, oriented x3. sitting in chair. on supp O2
HEENT: supple, anicteric, mmm, eomi
LUNGS: Crackles and wheezes B/L
CV: Reg, S1/S2, 1/6 murmur
ABD: soft, BS+, NT/ND
EXT: No cyanosis, clubbing. 3+ edema of B/L LE
NEURO: Gross non-focal
SKIN: Warm, pink, dry. No rash
[2024-11-20] MEDS: SPIRIVA RESPIMAT 2.5 MCG 2 PUFF INH (09:02)
[2024-11-20] MEDS: SYMBICORT 80/4.5 MCG INHALER 2 PUFF INH (09:03)
--- NOTE | 2024-11-20 10:55 | CON.PUL ---
Consultation
Consultation Request
Date/Time Consultation Requested: 11/20/2024 - 1013
Date/Time Consultation Performed: 11/20/2024 - 0
Requesting Provider: Martha Burgos PA-C
Performing Provider: Dr. Nice
Reason for Consultation: SOB
Medical History
-
Chief Complaint: Worsening LE swelling + SOB
History of Present Illness:
84-year-old M with PMHx ofg HLD, HTN and COPD who p/w worsening LE edema and SOB. His son works here as a ENGINEER ASSISTANT for [employer]. Pt has had worsening LE edema as well as his hands/wrists since he was recently discharged here on 11/05/2024. Alos
having increasing weight. He had been reportedly compliant with his sodium and fluid restriction. In the ER he was afebrile to 98.5F, HR 75, RR 20, BP 141/71, and SpO2 93% on 3L/min. Initial labs with WBC 9.8, Hb 11.1, Cr 1.4, troponin 0.042, BNP
3890, and albumin 1.8. Initial CXR showed prominent interstitial markings with fluid seen along the minor fissure, with moderate bilateral apical scarring. Given lasix 80mg IV in the ER. Was admitted to tele and then TRX to IVU on 11/18/2024 for
further. Pulmonary now consulted given his continued SOB and hypoxia despite being diuresed.
When I saw the pt he was in bed in NAD. Son, Christiano, and , Alis, at bedside. Pt sitting in chair on 3L/min. He had a bad night due to SOB and wheezing, requiring multiple neb treatments, and he said the neb treatment burned his throat. He has a
cough, mainly in the AM, and is dry per the pt. He currently denies chest pain, BACH, abd pain, N/V/f/c.
Of note patient follows with us in the office with last visit on 10/18/[address] Larson. Patient has suspected multifactorial causes for shortness of breath and Trelegy 100 was started at that visit for COPD. He was noted to be hypoxic with
SpO2 dropping to 90%. He does have a suspected asbestos exposure from being in the [employer] when he used to live in [place]. He moved to [place] about 50 years ago. He does have an [id number]-[id number] smoking history with centrilobular emphysema
seen on imaging, and quit smoking in the . He does carry a family history of lung cancer which his brother from. Last visit he had swelling in his legs and crackles throughout his lungs. There was concern for ILD as there are
interstitial changes seen from imaging (CXR from 10/07/2024). A CT chest was ordered at that visit as well as an echo. CT chest was done on 11/01/2024 showing bilateral reticular interstitial thickening with extensive groundglass opacities and
small bilateral pleural effusions. Appear to be a mixture between pulmonary edema and underlying interstitial fibrosis. TTE was done on 10/21/2024 showing preserved LVEF at 60 to 65% with stage III diastolic dysfunction, normal RV size and
function, moderate MR, moderately elevated PASP at 52 mmHg with no prior study available for comparison. PFTs were performed on 10/18/2024 showing moderate COPD with a borderline significant bronchodilator response, with a mild�moderate restrictive
lung defect and a moderately reduced gas exchange capacity which was only borderline reduced when accounting for alveolar volume involved in gas exchange (DLco: 42%, DLco/VA: 73%).
PMHx: Hypercholesterolemia, hypertension, CKD, PAD, GERD, anemia, chronic HFpEF
PSHx: Hernia repair
Past Medical History
Past Medical History: Other (Above as per HPI)
Past Surgical History: Other (Above as per HPI)
Social History
Tobacco: Former Smoker ([id number] history, quit smoking in the )
Alcohol: Occasional
Drug: None
Personal:
Living: With Family
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
Environmental Exposures: Suspected this past exposure while in the [employer] for 18 months
Family History
Family History: Cancer (Brother: of lung cancer) and Other (Father: Stroke; mother: from a brain aneurysm; another brother from a stroke)
Allergies / Home Medications
Allergies
Allergy/AdvReac Type Severity Reaction Status Date / Time
No Known Allergies Allergy Verified 11/14/24 12:26
Home Medications
�Medication �Instructions �Recorded �Confirmed �Last Taken �Type
amlodipine 5 mg tablet (Norvasc) 5 mg PO DAILY Blood Pressure 10/31/24 11/14/24 11/14/24 History
carboxymethylcellulose 0.5 1 drp BOTH EYES TID Eye Condition 10/31/24 11/14/24 11/14/24 History
%-glycerin 0.9 % eye drops
(Refresh Optive)
cilostazol 100 mg tablet 100 mg PO BID Blood Clot 10/31/24 11/14/24 11/14/24 History
Prevention/Tx
fluticasone fur. 100 mcg-umeclid 1 inh inhalation R DAILY 10/31/24 11/14/24 11/14/24 History
62.5 mcg-vilant 25 mcg Lung/Breathing Issues
inhalat.powder (Trelegy Ellipta)
omeprazole 20 mg tablet,delayed 20 mg PO DAILY Gastrointestinal 10/31/24 11/14/24 11/14/24 History
release Issue
sertraline 25 mg tablet 25 mg PO HS Depression 10/31/24 11/14/24 11/13/24 History
carvedilol 6.25 mg tablet 6.25 mg PO BID #60 tabs 11/05/24 11/14/24 11/14/24 Rx
hydralazine 25 mg tablet 25 mg PO BID #60 tabs 11/05/24 11/14/24 11/14/24 Rx
valsartan 160 mg tablet 160 mg PO DAILY #30 tabs 11/05/24 11/14/24 11/14/24 Rx
furosemide 40 mg tablet 40 mg PO BID Fluid 11/14/24 11/14/24 11/14/24 History
Retention/Swelling
Review of Systems
-
History Source: Patient
All other systems: Negative unless noted
Vitals / Labs / Diagnostic Testing
Vital Signs
Temp Pulse Resp BP Pulse Ox
97.7 F 67 20 144/66 94
11/20/24 11:13 11/20/24 11:08 11/20/24 11:13 11/20/24 11:08 11/20/24 11:13
Lab Data
11/19/24 04:53
Diagnostic Testing:
Physical Exam
-
HEENT: Normocephalic and Anicteric
Cardiovascular: S1/S2 and Peripheral Edema (negative)
Respiratory: Wheeze (in upper lobes mainly), Rales (bilaterally mainly in the bases), Rhonchi (negative) and Non-Labored Respirations
GI: Soft, Non Distended, Non Tender and Normal Bowel Sounds
Neurology: Awake, Alert and Tremors (negative)
Skin: Warm and Dry
General: Respiratory Distress (negative), Comfortable, Fever (negative) and Chills (negative)
Assessment
-
Assessment: 84-year-old M with PMHx ofg HLD, HTN and COPD who p/w worsening LE edema and SOB. His son works here as a ENGINEER ASSISTANT for [employer]. Pt has had worsening LE edema as well as his hands/wrists since he was recently discharged here on
11/05/2024. Alos having increasing weight. He had been reportedly compliant with his sodium and fluid restriction. In the ER he was afebrile to 98.5F, HR 75, RR 20, BP 141/71, and SpO2 93% on 3L/min. Initial labs with WBC 9.8, Hb 11.1, Cr 1.4,
troponin 0.042, BNP 3890, and albumin 1.8. Initial CXR showed prominent interstitial markings with fluid seen along the minor fissure, with moderate bilateral apical scarring. Given lasix 80mg IV in the ER. Was admitted to tele and then TRX to
IVU on 11/18/2024 for further. Pulmonary now consulted given his continued SOB and hypoxia despite being diuresed.
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
Impression:
#Acute respiratory failure with hypoxia on supplemental oxygen likely combination of ADH in setting of COPD, suspected ILD and hypoalbuminemia
#Acute decompensated heart failure
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
#Moderate COPD with borderline significant bronchodilator response, with mild�moderate restrictive lung defect (per PFT from 10/18/2024)
#Moderately reduced gas exchange capacity which is only borderline reduced when accounting for alveolar volume involved in gas exchange (DLco: 42%, DLco/VA: 73% per PFT from 10/18/2024)
#Hypoalbuminemia
#Chronic anemia
#hyperglycemia
#Elevated troponin (0.042 on 11/14/2024)
#CKD with albuminuria
#Former tobacco smoker ([id number] history, quit smoking in the ) with centrilobular/paraseptal emphysema seen on CT chest from 11/01/2024
Plan:
- Continue treatment for heart failure
- Maintain net negative fluid balance as tolerated
- Trend BNP
- If patient continues to be diuresed but remains on oxygen with continued dyspnea, then would start systemic steroids at that time
- Hold off on systemic steroids for now and I will check a rheumatological panel tomorrow morning
- Ideally this panel should be done prior to any steroids being started otherwise there will be an increased risk for false negative result
- Check spot microalbumin/Cr to eval for macroalbuminuria which would also pose as a significant contributor to his volume overload --> consult nephrology
- Maintain SpO2 88-95% with supplemental O2 and wean down as tolerated
- Antitussants prn
- On trelegy as an outpatient --> continue Symbicort and spiriva. Raise symbicort to 160mcg dose and rinse mouth after use
- Change prn DuoNebs to albuterol as he is already on spiriva
- Trend troponin until begins to downtrend
- Incentive spirometer q1hr while awake
- Replete electrolytes with K>4, Mg>2
- Maintain euglycemia with goal BG >100 and <180
- Transfuse if needed to keep Hb>7-8g/dL
- DVT ppx: HSQ
Pulmonary service will continue to follow along. Continue follow up with us in the office as last visit was on 10/18/[address] Larson.
Data:
CXR 11/20/2024:
Progression of bilateral interstitial and alveolar opacification in comparison to recent prior study for which acute inflammatory/infectious etiology would be most likely with possible underlying chronic interstitial changes.
Small right pleural effusion, increased.
Total time spent today was 56 minutes for this encounter. Time includes reviewing laboratory test/imaging results, reviewing pertinent medical records, obtaining and reviewing medical history, performing an appropriate exam, ordering medications,
tests and procedures. Time also includes documentation of this encounter, coordinating patient care and communicating with other healthcare professionals. Total time does not include separately billed tests performed on this date of service.
[2024-11-20 11:08] VITALS: BP 144/66
[2024-11-20 11:58] LABS: Albumin 2.2 g/dl (3.5-5.0); Blood Urea Nitrogen 32 mg/dl (9-20); Calcium 7.6 mg/dl (8.4-10.2); Carbon Dioxide 38 mmol/L (22-30); Chloride 97 mmol/L (98-107); Estimated Creatinine Clearance 50 ml/min; Glucose 200 mg/dl (70-99); Potassium 4.5 mmol/L (3.5-5.1); Sodium 137 mmol/L (135-145); eGFR > 60.00
--- NOTE | 2024-11-20 14:51 | CM ---
Chart reviewed. Patient is independent of ADLS, lives with his in a multilevel home, 1st floor set up, 2 BRO, 0 DME. Patient has home o2 with [facility]. Patient is current with [facility]ana [facility]. Plan is for the patient to return home
with [facility]. CM to follow
[2024-11-20 15:01] LABS: Erythrocyte Sed Rate 90 mm/hour (0-20)
[2024-11-20 15:27] LABS: Creatine Phosphokinase 26 U/L (55-170); Uric Acid 5.7 mg/dl (3.5-8.5)
--- NOTE | 2024-11-20 15:52 | PTCARENOTE ---
Discussed all nursing measures prior to implementation.
[2024-11-20 16:15] VITALS: BP 154/71
[2024-11-20] MEDS: LASIX 80 MG IV (16:27)
--- NOTE | 2024-11-20 16:38 | W.CON.NEPH ---
Consultation
-
Date/Time Consultation Requested: 11/20/2024 1:00 PM
Date/Time Consultation Performed: 11/20/2024 4:30 PM
Requesting Provider: Dr. Leach
Performing Provider: Dr. Lechuga
Reason for Consultation: Proteinuria microscopic hematuria edema
Medical History
-
Chief Complaint: Proteinuria microscopic hematuria edema
History of Present Illness:
84-year-old M with PMHx ofg HLD, HTN (on amlodipine,carvedilol, hydralazine, and valsartan) , edema with CHF on on lasix 40mg BID, and COPD/ILD who presented on 11/14/24 with worsening LE edema and SOB. His son works here as a FILM INSPECTOR for anesthesia.
Pt has had worsening LE edema as well as his hands/and wrists since he was recently discharged here on 11/05/2024. He has had profound hypoalbuminemia and a urine protein to creatinine ratio at that time had been obtained and was 7.6 g on 11/02/24.
His creatinine remained stable at 1.1 but most recent urinalysis from 10/31/2024 revealed 3+ blood as well as 2+ albumin in the aforementioned elevated protein to creatinine ratio. He was admitted with acute on chronic congestive heart failure
exacerbation and diuresed with IV Lasix. nephrology was asked to see the patient in regards to his hypoalbuminemia (2.2) in the setting of his nephrotic syndrome
Past Medical History
Acute HFpEF
Atrial tachycardia
Moderate MR
CKD
PAD, abnormal L IVAN, mod to severe claudication
HTN
HLD
GERD
COPD/ILD: chronically O2 dependent
Moderate MR with pulmonary hypertension
CKD with creatinine of 1.1
Hernia
Anemia
Hypoalbuminemia
Social History
Alcohol: Occasional
Drug: None
Family History
no CKD
Allergies / Home Medications
Allergy/AdvReac Type Severity Reaction Status Date / Time
No Known Allergies Allergy Verified 11/14/24 12:26
�Medication �Instructions �Recorded �Confirmed �Type
amlodipine 5 mg tablet (Norvasc) 5 mg PO DAILY Blood Pressure 10/31/24 11/14/24 History
carboxymethylcellulose 0.5 1 drp BOTH EYES TID Eye Condition 10/31/24 11/14/24 History
%-glycerin 0.9 % eye drops
(Refresh Optive)
cilostazol 100 mg tablet 100 mg PO BID Blood Clot 10/31/24 11/14/24 History
Prevention/Tx
fluticasone fur. 100 mcg-umeclid 1 inh inhalation R DAILY 10/31/24 11/14/24 History
62.5 mcg-vilant 25 mcg Lung/Breathing Issues
inhalat.powder (Trelegy Ellipta)
omeprazole 20 mg tablet,delayed 20 mg PO DAILY Gastrointestinal 10/31/24 11/14/24 History
release Issue
sertraline 25 mg tablet 25 mg PO HS Depression 10/31/24 11/14/24 History
carvedilol 6.25 mg tablet 6.25 mg PO BID #60 tabs 11/05/24 11/14/24 Rx
hydralazine 25 mg tablet 25 mg PO BID #60 tabs 11/05/24 11/14/24 Rx
valsartan 160 mg tablet 160 mg PO DAILY #30 tabs 11/05/24 11/14/24 Rx
furosemide 40 mg tablet 40 mg PO BID Fluid 11/14/24 11/14/24 History
Retention/Swelling
Review of Systems
-
All other systems: Negative unless noted
Constitutional: Weight Gain and Fatigue
Respiratory: Trouble Breathing
Musculoskeletal: Edema
Physical Exam
Vital Signs
Vital Signs
Temp Pulse Resp BP Pulse Ox
97.7 F 71 18 151/71 95
11/20/24 16:15 11/20/24 16:27 11/20/24 16:15 11/20/24 16:27 11/20/24 16:15
Lab Results
11/19/24 04:53
11/20/24 10:25
WBC 7.0 10^3/uL (4.8-10.8) 11/19/24 04:53
RBC 4.00 10^6/uL (4.70-6.10) L 11/19/24 04:53
Hgb 10.3 g/dL (13.0-18.0) L 11/19/24 04:53
Hct 34.0 % (39.0-52.0) L 11/19/24 04:53
Plt Count 160 10^3/uL (130-400) 11/19/24 04:53
Sodium 137 mmol/L (135-145) 11/20/24 10:25
Potassium 4.5 mmol/L (3.5-5.1) 11/20/24 10:25
Chloride 97 mmol/L (98-107) L 11/20/24 10:25
Carbon Dioxide 38 mmol/L (22-30) H 11/20/24 10:25
BUN 32 mg/dl (9-20) H 11/20/24 10:25
Creatinine 1.1 mg/dL (0.7-1.3) 11/20/24 10:25
eGFR > 60.00 11/20/24 10:25
Glucose 200 mg/dl (70-99) H 11/20/24 10:25
Calcium 7.6 mg/dl (8.4-10.2) L 11/20/24 10:25
Keb-K-Zoetgpaelrt Pept 3890 pg/ml 11/14/24 12:36
Albumin 2.2 g/dl (3.5-5.0) L 11/20/24 10:25
Physical Exam
General: AOx3, Nontoxic , NAD
HEENT: PERRL, EOMI, Anicteric, Conjunctivae Clear, Ear/Nose Intact, Hearing Normal, Oropharynx Clear/Moist, Dentition Intact, Facial Symmetry, Neck Supple, Neck: Trachea Midline, No JVD and No Thyromegaly, no Bruits
Respiratory: Bilateral crackles with decreased breath sounds at the bases with normal lung excursion
Cardiac: S1/S2 and Regular Rate/Rhythm
Breast: Deferred by me
Abdomen: Soft, Nontender, Nondistended, Normal Bowel Sounds and No Hepatosplenomegaly
Rectal: Deferred by Provider
Genito-urinary: No Costovertebral Tenderness
Extremities: No Clubbing, No Cyanosis and 2+ pitting edema to the thighs bilateral
Skin: No Rash or open lesions
Neuro: Nonfocal/Grossly Intact, CN II-XII (Intact) and Strength (Musculoskeletal exam 5 out of 5 both upper and lower extremities)
Hematologic/Lymphatic: No Cervical Lymphadenopathy, No Submandibular Lymphadenopathy and No Supraclavicular Lymphadenopathy
Psych: Mood/afflect pleasant, Insight/judgement good and Appropriate
Vascular: plus 1 pedal and radial pulses
Data Reviewed
-
Radiology: Image Personally Visualized and interpreted (Chest x-ray reviewed today bilateral interstitial opacities)
Labs: Labs Reviewed by me (BMP CBC urinalysis)
Old Records: Reviewed (Reviewed previous urine protein to creatinine ratio from October 2024 7.6 g urinalysis noted 2+ albumin 3+)
Assessment/Plan
-
Impression:
Nephrotic range proteinuria/hypoalbuminemia
Microhematuria
Decompensated congestive heart failure
Metabolic alkalosis
COPD/ILD
CKD (1.1): Renal ultrasound notes bilateral renal cysts no hydronephrosis normal size kidneys)
Plan:
Nephrotic range proteinuria with associated microhematuria and hypoalbuminemia
-Ongoing edema could also be partially complicated by hypoalbuminemia due to nephrotic range proteinuria
-The presence of microhematuria in combination with nephrotic range proteinuria could be indicative of glomerular nephritis
-We will start by checking a repeat urine protein to creatinine ratio and a full autoimmune serological workup
-I am not sure this patient is a appropriate renal biopsy candidate given his poor lung function and multiple comorbidities in the setting of his advanced age
-Maintain Lasix 80 mg IV twice daily for profound volume overload at this time
-I suspect his metabolic alkalosis is at least partially compensatory in the setting of respiratory acidosis from hypercapnia in the setting of his lung disease in addition to a possible underlying contraction alkalosis
-Discussed with family and sons
--- NOTE | 2024-11-20 16:59 | W.PN.HOSP.TC ---
Today's Communication/Plan
-
Additional workup for ILD and glomerular process.
Pulmonology/nephrology evaluation
Continue IV diuresis
Continue oxygen supplementation per
Monitor renal function
Assessment / Plan
Assessment / Plan
Impression:
Presentation with worsening of shortness of breath, weight gain, worsening of lower extremity edema
Acute hypoxic respiratory failure
Acute CHF preserved EF exacerbation.
Other conditions:
Chronic hypoxic respiratory failure on home O2 at 2 L intermittently.
Chronic CHF preserved EF
-ECHO 10/21/24: EF 60 to 65%, mild concentric LVH, stage III diastolic dysfunction, moderately dilated atria, mild MAC, moderate MR, mild TR, PAP 52 mmHg, ascending aorta top normal at 3.7 cm
Moderate MR
Pulmonary hypertension
CKD stage IIIb baseline creatinine 1.3.
PAD with abnormal left IVAN/moderate to severe claudication on Pletal [employer]CH[employer].
Essential hypertension
Dyslipidemia.
GERD.
COPD.
Chronic anemia
Hypoalbuminemia.
Plan:
Acute hypoxic respiratory failure
Acute CHF exacerbation
Echo as above.
States to be compliant with Lasix, although presents with worsening of exertional dyspnea, worsening of peripheral edema (part of that could be chronic lymphedema) JVD on exam.
'If this is cardiorenal state in the patient with CKD.
IV diuresis with Lasix 60 mg IV twice daily monitor renal function, daily weights closely.
Cardiology input appreciated.
Hold valsartan and Norvasc to give room in BP for IV diuresis.
Hold Pletal acutely
Continue Coreg
Acute hypoxic respiratory failure.
Overall weight improvement with diuresis, although respiratory status remains tenuous.
Chest x-ray with worsening bilateral diffuse infiltrates.
With these as well as nephrotic range proteinuria there is a concern for systemic process.
Pulmonology input appreciated.
Serologic workup for interstitial lung disease ordered.
Contemplating empiric course of systemic steroids.
CKD 3
Monitor renal function with diuresis closely
Nephrotic range proteinuria
Consider nephrology evaluation
Anemia of chronic disease per
Recent studies consistent with mixed picture of anemia of CKD and mild iron deficiency.
Will need GI evaluation as outpatient once cardiovascular status is optimized.
Check EPO level
IV iron.
Essential hypertension
Continue hydralazine, Coreg. Hold Norvasc and losartan.
GERD
On PPI
Full code.
DVT prophylaxis with heparin.
Plan of care discussed with patient's family at the bedside.
Anticipated Discharge: > 48 hours
Subjective/Interval History
-
Date of Service: November 20, 2024
Objective Data
-
Labs:
Laboratory Results
11/20/24
10:25
Sodium 137
Potassium 4.5
Chloride 97 L
Carbon Dioxide 38 H
BUN 32 H
Creatinine 1.1
Glucose 200 H
Calcium 7.6 L
Vital Signs:
Vital Signs
Temp Pulse Resp BP Pulse Ox
97.7 F 71 18 151/71 95
11/20/24 16:15 11/20/24 16:27 11/20/24 16:15 11/20/24 16:27 11/20/24 16:15
I&O
11/19/24 11/20/24 11/21/24
06:59 06:59 06:59
Intake Total 710 / 710 700 / 700 240 / 240
Output Total 575 / 575 2024 350 / 350
Balance 135 / 135 -1325 / -1325 -110 / -110
Physical Exam
-
General: Well Developed and No Apparent Distress
HEENT: Normocephalic, Atraumatic and Moist Mucous Membranes
Respiratory: Rales
Cardiac: Regular Rhythm, S1/S2, Murmur and JVD; Negative Rub or Gallop
GI: Soft, Nontender, Nondistended and Normal Bowel Sounds; Negative Organomegaly
Rectal: Deferred by Provider
Musculoskeletal: No Clubbing, No Cyanosis and No Edema
Skin: Negative Rash
Neuro: Awake, Alert, Oriented and Nonfocal/Grossly Intact
[2024-11-20 17:44] LABS: Urine Protein 995 mg/dl
[2024-11-20] MEDS: SYMBICORT 160/4.5 MCG INHALER 2 PUFF INH (19:26)
[2024-11-20 19:49] VITALS: BP 152/83
[2024-11-20] MEDS: ZOLOFT 25 MG PO (23:21)
[2024-11-20 23:30] VITALS: BP 146/68
[2024-11-20 23:33] LABS: Complement C3 142 mg/dl (88-165)
[2024-11-21] VITALS (9 sets, daily range): BP systolic 132–175; BP diastolic 61–87; PULSE 67; O2SAT 98; BMI 26.5
--- NOTE | 2024-11-21 01:28 | PTCARENOTE ---
Pt woke up at this time wanting to get oob and sit in recliner chair. Pt voiced being upset with staff for waking him just before midnight to take his VS and give him his medicine. Pt aware that it is middle of night but want to get up and sit in
recliner.
am wt obtained, same as yesterday. Will get am labs now.
[2024-11-21 02:19] LABS: Blood Urea Nitrogen 36 mg/dl (9-20); Calcium 7.4 mg/dl (8.4-10.2); Carbon Dioxide 40 mmol/L (22-30); Chloride 97 mmol/L (98-107); Creatine Phosphokinase 23 U/L (55-170); Estimated Creatinine Clearance 50 ml/min; Glucose 108 mg/dl (70-99); Potassium 4.8 mmol/L (3.5-5.1); Sodium 138 mmol/L (135-145); eGFR > 60.00
[2024-11-21 02:23] LABS: NT-proBNP 6090 pg/ml
--- NOTE | 2024-11-21 05:49 | PTCARENOTE ---
Pt oob in recliner for several hours sleeping. At 0537 pt had short 3 sec burst of svt then right back to sinus at 60. b/p 159/86. pt asympt, unaware.
[2024-11-21] MEDS: SPIRIVA RESPIMAT 2.5 MCG 2 PUFF INH (07:11)
[2024-11-21] MEDS: SYMBICORT 160/4.5 MCG INHALER 2 PUFF INH ×2 (07:11→20:28)
--- NOTE | 2024-11-21 07:52 | W.PN.CARDCBS ---
Addendum entered and electronically signed by Cinthya Nuñez MD 11/21/24 11:28:
Did discuss with nephrology, pulmonary, primary service and patient's son. Agree that steroids are appropriate with continue follow-up of renal status, pulmonary status and cardiac status. Could consider right heart catheterization in the next few
days however patient not clearly able to lay flat at this time. Reassess on a day-to-day basis. This may be needed to determine euvolemic status given third spacing from other causes. Appreciate all consultants help.
32 minutes total critical care time reviewing records, coordinating care and discussing with family.
Addendum entered and electronically signed by Cinthya Nuñez MD 11/21/24 08:47:
I saw and examined the patient.
The Gas Prover's note was reviewed and I agree with the note.
Comment: Exam today shortness of breath at rest oxygen in place. Bilateral diffuse crackles decreased breath sounds at the bases. Distant heart sounds and regular. Edema remains +3 extending to the thighs. Events of yesterday after recognition
of hypoalbuminemia and protein loss in the urine along with red blood cells consultation placed to nephrology for nephrotic/nephritic process. Consult also placed to pulmonary given concern for interstitial lung disease of an inflammatory nature.
Sed rate and CRP elevated. Other testing underway. From a cardiac point of view rhythm remains stable. Continue to treat for heart failure with preserved ejection fraction. Chest x-ray reviewed worsened interstitial markings. proBNP noted to be
6000.
-Continue current dose of diuretic which was increased to 80 mg IV twice daily yesterday
-Continue to follow input/output and daily weights
-Guideline directed medical therapy as tolerates
-Assessing for other sources of edema.
-Increase activity as tolerates.
-Continue to follow telemetry Short runs of PAT noted on monitor. Continue carvedilol.
I have reached out by secure texting to patient's son Christiano with update
Original Note:
Today's Communication / Plan
-
continue IV lasix
start steroids per pulm/nephro
rheum work up
Impression / Plan
-
Primary Circulation Tender: Dr. Elizondo
Impression:
Presentation 11/14/2024 with recurrent weight gain, LE edema, MUNOZ
Acute HFpEF, proBNP, proBNP 3890
Abnormal troponin, suspect nonischemic myocardial injury secondary to acute heart failure exacerbation
Admission to 10/31-11/05/24 for new HFpEF
Atrial tachycardia
Moderate MR
CKD
PAD, abnormal L IVAN, mod to severe claudication
HTN
HLD
GERD
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
Hernia
Anemia
Hypoalbuminemia
ECHO 10/21/24: EF 60 to 65%, mild concentric LVH, stage III diastolic dysfunction, moderately dilated atria, mild MAC, moderate MR, mild TR, PAP 52 mmHg, ascending aorta top normal at 3.7 cm
Plan:
-had admission 10/31-11/05 for new CHF. then returned to due to recurrent weight gain, lower extremity edema, MUNOZ despite escalating OP diuretic therapy. remains with edema and c/o continued SOB although improving from admission
-continue IV diuresis - dose increased to 80mg IV BID 11/20. weight down 15 pounds thus far from admission if accurate. establishing new dry weight. prior to admission was on po lasix 40mg daily increased several days prior to admission to 40mg BID
-Cr improved from admission, stable at 1.1
-edema multifactorial as he also has significant hypoalbuminemia and low protein. received albumin 11/19, repeat albumin 2.2. he is noted to have 2+ albumin and 3+ occult blood in his urine. Protein/Cr ratio was elevated in October, 7.6, higher now
at 16. nephrology following. dietary following. start on steroids. ESR/CRP elevated. rheum work up pending
-wean supp O2 as able
-CHF education
-continue compression therapy
-he is noted to be anemic with abnormal iron studies and is receiving iron repletion.
-echo with results as above
-continue coreg. farxiga and aldactone added this admission. OP valsartan on hold. OP norvasc stopped
-Given CHF cilostazol stopped
-PT following
-d/w patient's son, Christiano
HPI 11/15/2024:
History of Present Illness:
Patient is an 84-year-old male with past medical history of hypertension, hyperlipidemia, GERD, recent diagnosis COPD with former smoking who presents to [facility] emergency room for evaluation of worsening lower extremity edema since
discharge. He had presented with LE edema 10/31 and was admitted. Diuresed well with IV lasix 40mg BID and was discharged 11/05/24 at weight of 186 pounds on po lasix 40mg daily. Patient and family at bedside report since DC he has gained 12 pounds
and edema is back in B/L legs up to groin area. He was seen in cardiology office 11/12 and felt to be in failure and lasix dose was increased to 40mg BID without improvement so came to ER for eval. proBNP 3890 and CXR with evidence of improved CHF vs
PNA compared to prior from 10/2024. Son reports he has been compliant with fluid and salt restrictions at home. cardiology consulted for evaluation.
Progress Note - Circulation Tender
Subjective
Date of Service: November 21, 2024
Reports feels about the same
Objective
Labs:
11/19/24 04:53
11/21/24 01:47
Labs
Hgb 10.3 g/dL (13.0-18.0) L 11/19/24 04:53
Hct 34.0 % (39.0-52.0) L 11/19/24 04:53
Plt Count 160 10^3/uL (130-400) 11/19/24 04:53
Sodium 138 mmol/L (135-145) 11/21/24 01:47
Potassium 4.8 mmol/L (3.5-5.1) 11/21/24 01:47
BUN 36 mg/dl (9-20) H 11/21/24 01:47
Creatinine 1.1 mg/dL (0.7-1.3) 11/21/24 01:47
Glucose 108 mg/dl (70-99) H 11/21/24 01:47
Vital Signs and I&O:
Vital Signs
Temp Pulse Resp BP Pulse Ox
98 F 77 22 156/79 93
11/21/24 06:49 11/21/24 07:18 11/21/24 07:18 11/21/24 06:51 11/21/24 07:18
Vital Signs
Temp Pulse Resp BP Pulse Ox
98 F 77 22 156/79 93
11/21/24 06:49 11/21/24 07:18 11/21/24 07:18 11/21/24 06:51 11/21/24 07:18
Intake & Output
11/18/24 11/19/24 11/20/24 11/21/24
07:59 07:59 07:59 07:59
Intake Total 720 / 720 710 / 710 700 / 940 240 / 240
Output Total 575 / 575 2025 / 2175 1315 / 1315
Balance 720 / 720 135 / 135 -1325 / -1235 -1075 / -1075
Physical Exam
Physical Exam
GEN: No distress, awake, alert, oriented x3. sitting in chair. on supp O2
HEENT: supple, anicteric, mmm, eomi
LUNGS: Crackles B/L
CV: Reg, S1/S2, 1/6 murmur
ABD: soft, BS+, NT/ND
EXT: No cyanosis, clubbing. 3+ edema of B/L LE
NEURO: Gross non-focal
SKIN: Warm, pink, dry. No rash
[2024-11-21] MEDS: LASIX 80 MG IV ×2 (08:37→16:29)
[2024-11-21] MEDS: HEPARIN 5000 UNITS SC ×3 (08:38→23:32)
[2024-11-21] MEDS: FARXIGA 10 MG PO (08:38)
[2024-11-21] MEDS: REFRESH CELLUVISC GEL 1 DROPS BOTH EYES ×3 (08:38→23:33)
[2024-11-21] MEDS: COREG 6.25 MG PO ×2 (08:39→20:57)
[2024-11-21] MEDS: ALDACTONE 12.5 MG PO (08:39)
[2024-11-21] MEDS: PROTONIX 40 MG PO (08:39)
[2024-11-21] MEDS: APRESOLINE 25 MG PO ×2 (08:39→20:58)
[2024-11-21] MEDS: MIRALAX PO (08:40)
--- NOTE | 2024-11-21 08:52 | W.PN.PUL3 ---
Today's Communication / Plan
-
Start systemic steroids with solumedrol
Continue aggressive diuresis
Trend UOP, sCr and I/O with daily weight
Trend BNP
Follow up rheumatological panel checked this AM
Up OOB as tolerated; PT/OT
Symbicort/spiriva with prn albuterol
Maintain SpO2 88-95% given Hx of COPD
Pulmonary service will continue to follow along
Assessment
-
Assessment: 84-year-old M with PMHx ofg HLD, HTN and COPD who p/w worsening LE edema and SOB. 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 Pt has had worsening LE edema as well as his hands/wrists since he was recently discharged here on
11/05/2024. Alos having increasing weight. He had been reportedly compliant with his sodium and fluid restriction. In the ER he was afebrile to 98.5F, HR 75, RR 20, BP 141/71, and SpO2 93% on 3L/min. Initial labs with WBC 9.8, Hb 11.1, Cr 1.4,
troponin 0.042, BNP 3890, and albumin 1.8. Initial CXR showed prominent interstitial markings with fluid seen along the minor fissure, with moderate bilateral apical scarring. Given lasix 80mg IV in the ER. Was admitted to tele and then TRX to
[facility] on 11/18/2024 for further. Pulmonary now consulted given his continued SOB and hypoxia despite being diuresed.
Chronic conditions HEALTH CARE CONSULTANT: Hypercholesterolemia, hypertension, CKD, PAD, GERD, anemia, chronic HFpEF
Impression:
#Acute respiratory failure with hypoxia on supplemental oxygen likely combination of ADH in setting of COPD, suspected ILD and hypoalbuminemia
#Acute decompensated heart failure
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
#Moderate COPD with borderline significant bronchodilator response, with mild�moderate restrictive lung defect (per PFT from 10/18/2024)
#Moderately reduced gas exchange capacity which is only borderline reduced when accounting for alveolar volume involved in gas exchange (DLco: 42%, DLco/VA: 73% per PFT from 10/18/2024)
#Hypoalbuminemia
#Chronic anemia
#Hyperglycemia
#Elevated troponin (0.042 on 11/14/2024)
#CKD with albuminuria
#Former tobacco smoker (60-afie-mger history, quit smoking in the ) with centrilobular/paraseptal emphysema seen on CT chest from 11/01/2024
Plan:
- Continue treatment for heart failure
- Maintain net negative fluid balance as tolerated
- Trend BNP
- Pt's has elevated inflammatory markers and given his concern for SARD-ILD, I will start him on systemic steroids now with solumedrol 40mg IV q8hr
- Rheumatological panel checked this AM before steroids were started - follow this up
- Urine protein/Cr is 16; nephrology on board and recs appreciated
- Maintain SpO2 88-95% with supplemental O2 and wean down as tolerated
- Antitussants prn
- On trelegy as an outpatient --> continue Symbicort and spiriva. Rinse mouth after symbicort to avoid thrush
- Changed prn DuoNebs to albuterol as he is already on spiriva
- Trend troponin until begins to downtrend
- Incentive spirometer q1hr while awake
- Replete electrolytes with K>4, Mg>2
- Maintain euglycemia with goal BG >100 and <180
- Transfuse if needed to keep Hb>7-8g/dL
- DVT ppx: HSQ
Pulmonary service will continue to follow along. Continue follow up with us in the office as last visit was on 10/18/[address] Larson.
Data:
CXR 11/20/2024:
Progression of bilateral interstitial and alveolar opacification in comparison to recent prior study for which acute inflammatory/infectious etiology would be most likely with possible underlying chronic interstitial changes.
Small right pleural effusion, increased.
Total time spent today was 37 minutes for this encounter. Time includes reviewing laboratory test/imaging results, reviewing pertinent medical records, obtaining and reviewing medical history, performing an appropriate exam, ordering medications,
tests and procedures. Time also includes documentation of this encounter, coordinating patient care and communicating with other healthcare professionals. Total time does not include separately billed tests performed on this date of service.
Subjective Data
-
Date of Service:
Date of Service: November 21, 2024
Chief Complaint: Pulmonary Follow Up
Subjective:
Pt seen and evaluated this AM. Resting in a chair in NAD. On 3L/min. HR 50 and BP 139/65. Still SOB with activity. Denies chest pain, N/V/f/c.
Review of Systems
General: Other (negative unless mentioned above)
Objective Data
Data Reviewed
Vital Signs / I&O / Oxygen:
Vital Signs
Temp Pulse Resp BP Pulse Ox
98 F 61 22 156/79 93
11/21/24 06:49 11/21/24 08:37 11/21/24 07:18 11/21/24 08:37 11/21/24 07:18
Intake and Output
11/20/24 11/21/24 11/22/24
06:59 06:59 06:59
Intake Total 700 / 700 240 / 240
Output Total 2024 1315 / 1315
Balance -1325 / -1325 -1075 / -1075
SaO2 93
Nasal Cannula flow liters per 3
minute
Physical Exam
General: Respiratory Distress (negative), Chills (negative) and Sweats (negative)
HEENT: Normocephalic and Anicteric
Cardiovascular: S1-S2, Rub (negative) and Peripheral Edema (+1 LE edema b/l)
Respiratory: Wheeze (negative), Crackles (bilaterally mainly in the bases), Rhonchi (negative) and Non-Labored Respirations
GI: Soft, Non Distended, Non Tender and Normal Bowel Sounds
Neurology: Awake, Alert and Tremors (negative)
Skin: Warm, Dry, Cyanosis (negative) and Jaundice (negative)
Labs/Micro/Reports
Lab Data
11/19/24 04:53
11/21/24 01:47
--- NOTE | 2024-11-21 10:56 | W.PN.NEPH.PH ---
Today's Communication / Plan
-
Maintain IV diuresis
Serological workup in process
Assessment/Plan
-
Impression:
Nephrotic range proteinuria/hypoalbuminemia
Microhematuria
Decompensated congestive heart failure
Metabolic alkalosis
COPD/ILD
CKD (1.1): Renal ultrasound notes bilateral renal cysts no hydronephrosis normal size kidneys)
Plan:
Nephrotic range proteinuria with associated microhematuria and hypoalbuminemia
-Ongoing edema could also be partially complicated by hypoalbuminemia due to nephrotic range proteinuria
-The presence of microhematuria in combination with nephrotic range proteinuria could be indicative of glomerular nephritis
-Check a repeat urine protein to creatinine ratio and a full autoimmune serological workup: 16 grams proteinuria: concerning for minimal change vs membranous nephropathy
-I am not sure this patient is a appropriate renal biopsy candidate given his poor lung function and multiple comorbidities in the setting of his advanced age
-Maintain Lasix 80 mg IV twice daily for profound volume overload at this time, weights unchanged urine output not recorded
-Renal ultrasound reviewed noted normal-sized kidneys with small simple cyst no evidence of hydronephrosis
-I suspect his metabolic alkalosis is at least partially compensatory in the setting of respiratory acidosis from hypercapnia in the setting of his lung disease in addition to a possible underlying contraction alkalosis
-Likely right heart cath tomorrow, discussed with cardiology
-It would be interesting to see the response and proteinuria if steroids are introduced for his underlying ILD
-Discussed with family and sons
-
-
Date of Service: November 21, 2024
CC / HPI / ROS
-
Chief Complaint:
Nephrotic range proteinuria
History of Present Illness:
Creatinine unchanged at 1.1
Hemodynamically stable
Review of Systems:
Subjectively nonoliguric
Weights unchanged
No complaints of chest pain or shortness of breath although remains on oxygen
Labs
-
Labs:
WBC 7.0 10^3/uL (4.8-10.8) 11/19/24 04:53
RBC 4.00 10^6/uL (4.70-6.10) L 11/19/24 04:53
Hgb 10.3 g/dL (13.0-18.0) L 11/19/24 04:53
Hct 34.0 % (39.0-52.0) L 11/19/24 04:53
Plt Count 160 10^3/uL (130-400) 11/19/24 04:53
Sodium 138 mmol/L (135-145) 11/21/24 01:47
Potassium 4.8 mmol/L (3.5-5.1) 11/21/24 01:47
Chloride 97 mmol/L (98-107) L 11/21/24 01:47
Carbon Dioxide 40 mmol/L (22-30) H 11/21/24 01:47
BUN 36 mg/dl (9-20) H 11/21/24 01:47
Creatinine 1.1 mg/dL (0.7-1.3) 11/21/24 01:47
eGFR > 60.00 11/21/24 01:47
Glucose 108 mg/dl (70-99) H 11/21/24 01:47
Calcium 7.4 mg/dl (8.4-10.2) L 11/21/24 01:47
Kdb-D-Qhgnhqxvyku Pept 6090 pg/ml 11/21/24 01:47
Albumin 2.2 g/dl (3.5-5.0) L 11/20/24 10:25
Physical Exam
-
Vital Signs:
Vital Signs
Temp Pulse Resp BP Pulse Ox
98 F 61 22 156/79 93
11/21/24 06:49 11/21/24 08:37 11/21/24 07:18 11/21/24 08:37 11/21/24 07:18
Cardiovascular:: Regular rate and rhythm
Respiratory:: Bilateral: Coarse and Bilateral: Rales (At bases)
Lung Excursion:: Normal
Abdomen:: Nontender and Soft
Bowel Sounds:: Normal
Extremity Edema:: +2: Bilateral:
Rey Catheter: No
--- NOTE | 2024-11-21 11:05 | CM ---
Chart reviewed. Patient is independent of ADLS, lives with his in a m. level home, 1st floor set up, 0 DME, wears O2 at home with [employer]. Patient is current with Chandana ABEL. Plan is for the patient to return home with Chandana
VN. CM to follow
[2024-11-21] MEDS: SOLU-MEDROL PF 40 MG IV ×2 (12:50→20:58)
[2024-11-21 13:13] LABS: Rheumatoid Agglutinin Positive (<10 IU)
--- NOTE | 2024-11-21 13:56 | W.PN.HOSP.TC ---
Today's Communication/Plan
-
IV diuresis
Systemic steroid trial
Consideration of right heart cath
Monitor BMP closely
Assessment / Plan
Assessment / Plan
Impression:
Presentation with worsening of shortness of breath, weight gain, worsening of lower extremity edema
Acute hypoxic respiratory failure
Acute CHF preserved EF exacerbation.
Other conditions:
Chronic hypoxic respiratory failure on home O2 at 2 L intermittently.
Chronic CHF preserved EF
-ECHO 10/21/24: EF 60 to 65%, mild concentric LVH, stage III diastolic dysfunction, moderately dilated atria, mild MAC, moderate MR, mild TR, PAP 52 mmHg, ascending aorta top normal at 3.7 cm
Moderate MR
Pulmonary hypertension
CKD stage IIIb baseline creatinine 1.3.
PAD with abnormal left IVAN/moderate to severe claudication on Pletal FISHING CAPTAIN.
Essential hypertension
Dyslipidemia.
GERD.
COPD.
Chronic anemia
Hypoalbuminemia.
Plan:
Acute hypoxic respiratory failure likely multifactorial due to CHF/volume overload as well as interstitial lung disease.
Acute CHF exacerbation
Echo as above.
IV diuresis with Lasix 60 mg IV twice daily monitor renal function, daily weights closely.
Chest x-ray with worsening bilateral diffuse infiltrates.
Noted elevated inflammatory markers including ESR and CRP.
ILD serology pending
With interstitial lung process, nephrotic range proteinuria concern for nephrotic/nephritic syndrome, there is a reasonable concern for systemic process
Patient is too deconditioned to consider renal biopsy
Pulmonology input appreciated.
Initiated on systemic steroids Solu-Medrol 11/21
Consideration of right heart cath
Hold valsartan and Norvasc to give room in BP for IV diuresis.
Hold Pletal acutely
Continue Coreg
CKD 3
Monitor renal function with diuresis closely
Nephrotic range proteinuria
Consider nephrology evaluation
Anemia of chronic disease per
Recent studies consistent with mixed picture of anemia of CKD and mild iron deficiency.
Will need GI evaluation as outpatient once cardiovascular status is optimized.
Check EPO level
IV iron.
Essential hypertension
Continue hydralazine, Coreg. Hold Norvasc and losartan.
GERD
On PPI
Full code.
DVT prophylaxis with heparin.
Plan of care discussed with patient's family at the bedside.
Anticipated Discharge: > 48 hours
Subjective/Interval History
-
Date of Service: November 21, 2024
Objective Data
-
Labs:
Laboratory Results
11/21/24
01:47
Sodium 138
Potassium 4.8
Chloride 97 L
Carbon Dioxide 40 H
BUN 36 H
Creatinine 1.1
Glucose 108 H
Calcium 7.4 L
Vital Signs:
Vital Signs
Temp Pulse Resp BP Pulse Ox
97.5 F 61 20 156/79 98
11/21/24 11:18 11/21/24 08:37 11/21/24 11:18 11/21/24 08:37 11/21/24 11:18
I&O
11/20/24 11/21/24 11/22/24
06:59 06:59 06:59
Intake Total 700 / 700 240 / 240
Output Total 2024 1315 / 1315
Balance -1325 / -1325 -1075 / -1075
Physical Exam
-
General: Well Developed and No Apparent Distress
HEENT: Normocephalic, Atraumatic and Moist Mucous Membranes
Respiratory: Rales
Cardiac: Regular Rhythm, S1/S2, Murmur and JVD; Negative Rub or Gallop
GI: Soft, Nontender, Nondistended and Normal Bowel Sounds; Negative Organomegaly
Rectal: Deferred by Provider
Musculoskeletal: No Clubbing, No Cyanosis and No Edema
Skin: Negative Rash
Neuro: Awake, Alert, Oriented and Nonfocal/Grossly Intact
[2024-11-21 14:31] LABS: Rheumatoid Agg. Semi-quant 128 IU
--- NOTE | 2024-11-21 17:23 | PTCARENOTE ---
Pt noted to have a run of PAT. Pt unaware of the event. Pt sitting oob at the time. Will monitor.
[2024-11-21] MEDS: ZOLOFT 25 MG PO (23:33)
[2024-11-22] VITALS (7 sets, daily range): BP systolic 146–154; BP diastolic 66–84; BMI 26.1
[2024-11-22] MEDS: SOLU-MEDROL PF 40 MG IV ×3 (04:28→19:58)
[2024-11-22 05:23] LABS: Blood Urea Nitrogen 37 mg/dl (9-20); Calcium 7.4 mg/dl (8.4-10.2); Carbon Dioxide 39 mmol/L (22-30); Chloride 95 mmol/L (98-107); Estimated Creatinine Clearance 50 ml/min; Glucose 150 mg/dl (70-99); Potassium 4.8 mmol/L (3.5-5.1); Sodium 136 mmol/L (135-145); eGFR > 60.00
[2024-11-22] MEDS: PROTONIX 40 MG PO (08:11)
[2024-11-22] MEDS: FARXIGA 10 MG PO (08:12)
[2024-11-22] MEDS: APRESOLINE 25 MG PO ×2 (08:12→19:58)
[2024-11-22] MEDS: COREG 6.25 MG PO (08:12)
[2024-11-22] MEDS: ALDACTONE 12.5 MG PO (08:12)
[2024-11-22] MEDS: HEPARIN 5000 UNITS SC ×3 (08:13→23:01)
[2024-11-22] MEDS: MIRALAX 17 GRAMS PO (08:13)
[2024-11-22] MEDS: LASIX 80 MG IV ×2 (08:13→15:47)
[2024-11-22] MEDS: REFRESH CELLUVISC GEL 1 DROPS BOTH EYES ×3 (08:14→23:01)
--- NOTE | 2024-11-22 08:31 | W.PN.CARDCBS ---
Addendum entered and electronically signed by Martha Burgos PA-C 11/22/24 15:00:
updated patient's son Christiano at bedside
Addendum entered and electronically signed by Tao Kwok MD 11/22/24 14:45:
I saw and examined the patient.
The Metallurgy Laboratory Technician's note was reviewed and I agree with the note.
Comment: Briefly, 84-year-old man presenting with progressively worsening peripheral edema, weight gain and dyspnea on exertion
Symptoms are in part due to heart failure with preserved ejection fraction, but there is also some degree of nephrotic syndrome contributing as well
With IV diuresis his volume status is improving
Continue Lasix
Follow daily weights, renal function and electrolytes
Wean oxygen as able
Consideration of right heart catheterization next week
Appreciate nephrology input regarding nephrotic syndrome
Rest per Martha Burgos
Original Note:
Today's Communication / Plan
-
continue IV lasix
continue steroids
rheum panel pending
possible RHC Saturday 11/25
Impression / Plan
-
Primary Cotton Picking Machine Operator: Dr. Elizondo
Impression:
Presentation 11/14/2024 with recurrent weight gain, LE edema, MUNOZ
Acute HFpEF, proBNP, proBNP 3890
Abnormal troponin, suspect nonischemic myocardial injury secondary to acute heart failure exacerbation
Admission to 10/31-11/05/24 for new HFpEF
Atrial tachycardia
Moderate MR
CKD
PAD, abnormal L IVAN, mod to severe claudication
HTN
HLD
GERD
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
Hernia
Anemia
Hypoalbuminemia
ECHO 10/21/24: EF 60 to 65%, mild concentric LVH, stage III diastolic dysfunction, moderately dilated atria, mild MAC, moderate MR, mild TR, PAP 52 mmHg, ascending aorta top normal at 3.7 cm
Plan:
-had admission 10/31-11/05 for new CHF. then returned to due to recurrent weight gain, lower extremity edema, MUNOZ despite escalating OP diuretic therapy. remains with edema and c/o continued SOB although improving from admission
-appears brighter today
-continue IV lasix 80mg BID. weight down 17 pounds thus far from admission if accurate. establishing new dry weight. prior to admission was on po lasix 40mg daily increased several days prior to admission to 40mg BID
-Cr improved from admission, stable at 1.1. considering for RHC on Saturday 11/25
-edema multifactorial as he also has significant hypoalbuminemia and low protein. he is noted to have 2+ albumin and 3+ occult blood in his urine. Protein/Cr ratio was elevated in October, 7.6, higher now at 16. nephrology following. attempting to
avoid renal biopsy due to respiratory status. started on steroids 11/21. ESR/CRP elevated. rheum work up pending
-wean supp O2 as able
-CHF education
-continue compression therapy
-he is noted to be anemic with abnormal iron studies and is receiving iron repletion.
-echo with results as above
-continue coreg, will increase dose due to several brief episodes of PAT on review of tele overnight. farxiga and aldactone added this admission. OP valsartan on hold. OP norvasc stopped
-Given CHF cilostazol stopped
-PT following
HPI 11/15/2024:
History of Present Illness:
Patient is an 84-year-old male with past medical history of hypertension, hyperlipidemia, GERD, recent diagnosis COPD with former smoking who presents to [facility] emergency room for evaluation of worsening lower extremity edema since
discharge. He had presented with LE edema 10/31 and was admitted. Diuresed well with IV lasix 40mg BID and was discharged 11/05/24 at weight of 186 pounds on po lasix 40mg daily. Patient and family at bedside report since DC he has gained 12 pounds
and edema is back in B/L legs up to groin area. He was seen in cardiology office 11/12 and felt to be in failure and lasix dose was increased to 40mg BID without improvement so came to ER for eval. proBNP 3890 and CXR with evidence of improved CHF vs
PNA compared to prior from 10/2024. Son reports he has been compliant with fluid and salt restrictions at home. cardiology consulted for evaluation.
Progress Note - Cotton Picking Machine Operator
Subjective
Date of Service: November 22, 2024
appears brighter today
Objective
Labs:
11/19/24 04:53
11/22/24 04:26
Labs
Hgb 10.3 g/dL (13.0-18.0) L 11/19/24 04:53
Hct 34.0 % (39.0-52.0) L 11/19/24 04:53
Plt Count 160 10^3/uL (130-400) 11/19/24 04:53
Sodium 136 mmol/L (135-145) 11/22/24 04:26
Potassium 4.8 mmol/L (3.5-5.1) 11/22/24 04:26
BUN 37 mg/dl (9-20) H 11/22/24 04:26
Creatinine 1.1 mg/dL (0.7-1.3) 11/22/24 04:26
Glucose 150 mg/dl (70-99) H 11/22/24 04:26
Vital Signs and I&O:
Vital Signs
Temp Pulse Resp BP Pulse Ox
98.2 F 69 16 152/73 97
11/22/24 07:48 11/22/24 07:42 11/22/24 07:48 11/22/24 07:42 11/22/24 07:48
Vital Signs
Temp Pulse Resp BP Pulse Ox
98.2 F 69 16 152/73 97
11/22/24 07:48 11/22/24 07:42 11/22/24 07:48 11/22/24 07:42 11/22/24 07:48
Intake & Output
11/20/24 11/21/24 11/22/24 01/18/25
07:59 07:59 07:59 07:59
Intake Total 700 / 940 240 / 240
Output Total 2024 1315 / 131 1400 / 1400
Balance -1325 / -1235 -1075 / -1075 -1400 / -1400
Physical Exam
Physical Exam
GEN: No distress, awake, alert, oriented x3. sitting in chair. on supp O2
HEENT: supple, anicteric, mmm, eomi
LUNGS: Few crackles B/L
CV: Reg, S1/S2, 1/6 murmur
ABD: soft, BS+, NT/ND
EXT: No cyanosis, clubbing. 2-3+ edema of B/L LE
NEURO: Gross non-focal
SKIN: Warm, pink, dry. No rash
[2024-11-22] MEDS: SYMBICORT 160/4.5 MCG INHALER 2 PUFF INH ×2 (08:57→20:01)
[2024-11-22] MEDS: SPIRIVA RESPIMAT 2.5 MCG 2 PUFF INH (08:57)
--- NOTE | 2024-11-22 09:15 | W.PN.PUL3 ---
Today's Communication / Plan
-
Continue systemic steroids with solumedrol - wean as he clinically improves
Continue aggressive diuresis
Trend UOP, sCr and I/O with daily weight
Trend BNP
Follow up rheumatological panel checked on 11/21/2024 (so far shows elevated rheumatoid factor at 128 IU)
Up OOB as tolerated; PT/OT
Symbicort/spiriva with prn albuterol
Maintain SpO2 88-95% given Hx of COPD
Pulmonary service will continue to follow along
Assessment
-
Assessment: 84-year-old M with PMHx ofg HLD, HTN and COPD who p/w worsening LE edema and SOB. 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 Pt has had worsening LE edema as well as his hands/wrists since he was recently discharged here on
11/05/2024. Alos having increasing weight. He had been reportedly compliant with his sodium and fluid restriction. In the ER he was afebrile to 98.5F, HR 75, RR 20, BP 141/71, and SpO2 93% on 3L/min. Initial labs with WBC 9.8, Hb 11.1, Cr 1.4,
troponin 0.042, BNP 3890, and albumin 1.8. Initial CXR showed prominent interstitial markings with fluid seen along the minor fissure, with moderate bilateral apical scarring. Given lasix 80mg IV in the ER. Was admitted to tele and then TRX to
IVU on 11/18/2024 for further. Pulmonary now consulted given his continued SOB and hypoxia despite being diuresed.
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
Impression:
#Acute respiratory failure with hypoxia on supplemental oxygen likely combination of ADH in setting of COPD, suspected ILD and hypoalbuminemia
#Acute decompensated heart failure
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
#Moderate COPD with borderline significant bronchodilator response, with mild�moderate restrictive lung defect (per PFT from 10/18/2024)
#Moderately reduced gas exchange capacity which is only borderline reduced when accounting for alveolar volume involved in gas exchange (DLco: 42%, DLco/VA: 73% per PFT from 10/18/2024)
#Hypoalbuminemia
#Chronic anemia
#Hyperglycemia
#Elevated troponin (0.042 on 11/14/2024)
#CKD with albuminuria
#Former tobacco smoker ([id number] history, quit smoking in the ) with centrilobular/paraseptal emphysema seen on CT chest from 11/01/2024
Plan:
- Continue treatment for heart failure with lasix 80mg IV BID
- Maintain net negative fluid balance as tolerated
- Trend BNP
- Pt's has elevated inflammatory markers and given his concern for SARD-ILD, on 11/21/2024 I started him on systemic steroids with solumedrol 40mg IV q8hr --> wean as he clinically improves
- Rheumatological panel checked AM of 11/21/2024 before steroids were started - follow this up (so far his RF is elevated at 128 IU)
- Urine protein/Cr is 16; nephrology on board and recs appreciated
- Maintain SpO2 88-95% with supplemental O2 and wean down as tolerated
- Antitussants prn
- On trelegy as an outpatient --> continue Symbicort and spiriva. Rinse mouth after symbicort to avoid thrush
- Changed prn DuoNebs to albuterol as he is already on spiriva
- Trend troponin until begins to downtrend
- Incentive spirometer q1hr while awake
- Replete electrolytes with K>4, Mg>2
- Maintain euglycemia with goal BG >100 and <180
- Transfuse if needed to keep Hb>7-8g/dL
- DVT ppx: HSQ
Pulmonary service will continue to follow along. Continue follow up with us in the office as last visit was on 10/18/[address] Larson.
Data:
CXR 11/20/2024:
Progression of bilateral interstitial and alveolar opacification in comparison to recent prior study for which acute inflammatory/infectious etiology would be most likely with possible underlying chronic interstitial changes.
Small right pleural effusion, increased.
Total time spent today was 35 minutes for this encounter. Time includes reviewing laboratory test/imaging results, reviewing pertinent medical records, obtaining and reviewing medical history, performing an appropriate exam, ordering medications,
tests and procedures. Time also includes documentation of this encounter, coordinating patient care and communicating with other healthcare professionals. Total time does not include separately billed tests performed on this date of service.
Subjective Data
-
Date of Service:
Date of Service: November 22, 2024
Chief Complaint: Pulmonary Follow Up
Subjective:
Patient was seen and evaluated today at bedside. He says overall he feels better, able to take in a deep breath compared to yesterday. Currently sitting in chair no acute distress. Heart rate 65 and saturating 97% on 2 L/min. Denies chest pain,
headache, nausea, vomiting, fevers or chills.
Review of Systems
General: Other (Negative unless mentioned above)
Objective Data
Data Reviewed
Vital Signs / I&O / Oxygen:
Vital Signs
Temp Pulse Resp BP Pulse Ox
98.2 F 72 18 152/73 97
11/22/24 07:48 11/22/24 09:01 11/22/24 09:01 11/22/24 07:42 11/22/24 07:48
Intake and Output
11/21/24 11/22/24 11/23/24
06:59 06:59 06:59
Intake Total 240 / 240
Output Total 1315 / 1315 1400 / 1400
Balance -1075 / -1075 -1400 / -1400
SaO2 97
Nasal Cannula flow liters per 3
minute
Physical Exam
General: Respiratory Distress (negative), Comfortable, Chills (negative) and Sweats (negative)
HEENT: Normocephalic and Anicteric
Cardiovascular: S1-S2, Murmur (CHRISSY heard diffusely (grade III/)), Rub (negative) and Peripheral Edema (negative)
Respiratory: Wheeze (negative), Crackles (bilaterally mainly in the bases), Rhonchi (negative), Non-Labored Respirations and Stridor (negative)
GI: Soft, Non Distended, Non Tender and Normal Bowel Sounds
Neurology: AO x 3 and Tremors (negative)
Skin: Warm, Dry, Cyanosis (negative) and Jaundice (negative)
Labs/Micro/Reports
Lab Data
11/19/24 04:53
11/22/24 04:26
--- NOTE | 2024-11-22 09:55 | PTCARENOTE ---
Assumed care, patient in chair, sleeps in chair, can't lye flat in bed. Oxygen 3 liters NS, course crackles b/l bases, harsh dry cough POX 97%. Edema improving per patient, +2 lower extremities, skin warm, red and shinny. Tubigrip's replaced. Using
urinal in the chair, call [facility] in reach
--- NOTE | 2024-11-22 12:16 | W.PN.NEPH.PH ---
Today's Communication / Plan
-
Awaiting serologies continue IV diuretics
Assessment/Plan
-
Impression:
Nephrotic range proteinuria/hypoalbuminemia
Microhematuria
Decompensated congestive heart failure
Metabolic alkalosis
COPD/ILD
CKD (1.1): Renal ultrasound notes bilateral renal cysts no hydronephrosis normal size kidneys)
Plan:
Nephrotic range proteinuria with associated microhematuria and hypoalbuminemia
-Ongoing edema could also be partially complicated by hypoalbuminemia due to nephrotic range proteinuria
-The presence of microhematuria in combination with nephrotic range proteinuria could be indicative of glomerular nephritis
-Check a repeat urine protein to creatinine ratio and a full autoimmune serological workup: 16 grams proteinuria: concerning for minimal change vs membranous nephropathy
-I am not sure this patient is a appropriate renal biopsy candidate given his poor lung function and multiple comorbidities in the setting of his advanced age
-Maintain Lasix 80 mg IV twice daily for profound volume overload at this time, weights unchanged urine output not recorded
-Renal ultrasound reviewed noted normal-sized kidneys with small simple cyst no evidence of hydronephrosis
-I suspect his metabolic alkalosis is at least partially compensatory in the setting of respiratory acidosis from hypercapnia in the setting of his lung disease in addition to a possible underlying contraction alkalosis
steroids are introduced for his underlying ILD= will see if there is a response from proteinuria aspect from steroid
Awaiting serologies
-
-
Date of Service: November 22, 2024
CC / HPI / ROS
-
Chief Complaint:
Nephrotic range proteinuria
History of Present Illness:
Creatinine unchanged at 1.1
Hemodynamically stable
Review of Systems:
Subjectively nonoliguric
Weights unchanged
No complaints of chest pain or shortness of breath although remains on oxygen
Labs
-
Labs:
WBC 7.0 10^3/uL (4.8-10.8) 11/19/24 04:53
RBC 4.00 10^6/uL (4.70-6.10) L 11/19/24 04:53
Hgb 10.3 g/dL (13.0-18.0) L 11/19/24 04:53
Hct 34.0 % (39.0-52.0) L 11/19/24 04:53
Plt Count 160 10^3/uL (130-400) 11/19/24 04:53
Sodium 136 mmol/L (135-145) 11/22/24 04:26
Potassium 4.8 mmol/L (3.5-5.1) 11/22/24 04:26
Chloride 95 mmol/L (98-107) L 11/22/24 04:26
Carbon Dioxide 39 mmol/L (22-30) H 11/22/24 04:26
BUN 37 mg/dl (9-20) H 11/22/24 04:26
Creatinine 1.1 mg/dL (0.7-1.3) 11/22/24 04:26
eGFR > 60.00 11/22/24 04:26
Glucose 150 mg/dl (70-99) H 11/22/24 04:26
Calcium 7.4 mg/dl (8.4-10.2) L 11/22/24 04:26
Lop-H-Hdljqbkmlwf Pept 6090 pg/ml 11/21/24 01:47
Albumin 2.2 g/dl (3.5-5.0) L 11/20/24 10:25
Physical Exam
-
Vital Signs:
Vital Signs
Temp Pulse Resp BP Pulse Ox
97.9 F 67 20 149/66 98
11/22/24 10:53 11/22/24 11:30 11/22/24 10:53 11/22/24 10:55 11/22/24 10:53
Cardiovascular:: Regular rate and rhythm
Respiratory:: Bilateral: Coarse and Bilateral: Rales (At bases)
Lung Excursion:: Normal
Abdomen:: Nontender and Soft
Bowel Sounds:: Normal
Extremity Edema:: +2: Bilateral:
Rey Catheter: No
--- NOTE | 2024-11-22 12:17 | CM ---
Chart reviewed. Patient is independent of ADLS, lives with his in a multi level home, 1st floor set up, 2 BRO, wears Home O2 with [employer], current with [facility]. Referral sent to [facility] to resume services when discharged. Plan
is for the patient to return home with [facility]. CM to follow
--- NOTE | 2024-11-22 14:59 | W.PN.HOSP.TC ---
Today's Communication/Plan
-
Continue IV diuresis.
Continue IV steroids empirically pending ILD/vasculitis/nephritis urology
For right heart cath next week.
Assessment / Plan
Assessment / Plan
Impression:
Presentation with worsening of shortness of breath, weight gain, worsening of lower extremity edema
Acute hypoxic respiratory failure
Acute CHF preserved EF exacerbation.
Other conditions:
Chronic hypoxic respiratory failure on home O2 at 2 L intermittently.
Chronic CHF preserved EF
-ECHO 10/21/24: EF 60 to 65%, mild concentric LVH, stage III diastolic dysfunction, moderately dilated atria, mild MAC, moderate MR, mild TR, PAP 52 mmHg, ascending aorta top normal at 3.7 cm
Moderate MR
Pulmonary hypertension
CKD stage IIIb baseline creatinine 1.3.
PAD with abnormal left IVAN/moderate to severe claudication on Pletal F[employer]OPS.
Essential hypertension
Dyslipidemia.
GERD.
COPD.
Chronic anemia
Hypoalbuminemia.
Plan:
Acute hypoxic respiratory failure likely multifactorial due to CHF/volume overload as well as interstitial lung disease.
Acute CHF exacerbation
Echo as above.
IV diuresis with Lasix 60 mg IV twice daily monitor renal function, daily weights closely.
Chest x-ray with worsening bilateral diffuse infiltrates.
Noted elevated inflammatory markers including ESR and CRP.
ILD serology pending
With interstitial lung process, nephrotic range proteinuria concern for nephrotic/nephritic syndrome, there is a reasonable concern for systemic process
Patient is too deconditioned to consider renal biopsy
Pulmonology input appreciated.
Initiated on systemic steroids Solu-Medrol 11/21
Consideration of right heart cath
Hold valsartan and Norvasc to give room in BP for IV diuresis.
Hold Pletal acutely
Continue Coreg
CKD 3
Monitor renal function with diuresis closely
Nephrotic range proteinuria
Consider nephrology evaluation
Anemia of chronic disease per
Recent studies consistent with mixed picture of anemia of CKD and mild iron deficiency.
Will need GI evaluation as outpatient once cardiovascular status is optimized.
Check EPO level
IV iron.
Essential hypertension
Continue hydralazine, Coreg. Hold Norvasc and losartan.
GERD
On PPI
Full code.
DVT prophylaxis with heparin.
Plan of care discussed with patient's family at the bedside.
Anticipated Discharge: > 48 hours
Subjective/Interval History
-
Date of Service: November 22, 2024
Objective Data
-
Labs:
Laboratory Results
11/22/24
04:26
Sodium 136
Potassium 4.8
Chloride 95 L
Carbon Dioxide 39 H
BUN 37 H
Creatinine 1.1
Glucose 150 H
Calcium 7.4 L
Vital Signs:
Vital Signs
Temp Pulse Resp BP Pulse Ox
97.8 F 67 20 149/66 97
11/22/24 14:45 11/22/24 11:30 11/22/24 14:45 11/22/24 10:55 11/22/24 14:45
I&O
11/21/24 11/22/24 11/23/24
06:59 06:59 06:59
Intake Total 240 / 240 120 / 120
Output Total 1315 / 1315 1400 / 1400 500 / 500
Balance -1075 / -1075 -1400 / -1400 -380 / -380
Physical Exam
-
General: Well Developed and No Apparent Distress
HEENT: Normocephalic, Atraumatic and Moist Mucous Membranes
Respiratory: Rales
Cardiac: Regular Rhythm, S1/S2, Murmur and JVD; Negative Rub or Gallop
GI: Soft, Nontender, Nondistended and Normal Bowel Sounds; Negative Organomegaly
Rectal: Deferred by Provider
Musculoskeletal: No Clubbing, No Cyanosis and No Edema
Skin: Negative Rash
Neuro: Awake, Alert, Oriented and Nonfocal/Grossly Intact
[2024-11-22 19:09] LABS: Aldolase 6.6 U/L (1.2-7.6)
[2024-11-22] MEDS: COREG 12.5 MG PO (19:58)
[2024-11-22 21:02] LABS: Angiotensin-1-converting Enzym 62 U/L (16-85)
--- NOTE | 2024-11-22 21:47 | PTCARENOTE ---
Patient received at change of shift. Patient reports improvement in breathing, states that he is feeling better. Reports some dyspnea on exertion but overall feels improved. Patient on 2L NC with oxygen saturation 96-97%. Patient prefers to be in
the chair for the night. Patient sinus rhythm on monitoring manager. Denies pain at this time. Plan of care reviewed with patient. Call [facility] is within reach. Fluid restriction reviewed with patient who verbalizes understanding. Care ongoing.
[2024-11-22] MEDS: ZOLOFT 25 MG PO (23:01)
[2024-11-22 23:32] LABS: CCP Antibody IgG/IgA 6 Units (0-19)
[2024-11-22 23:55] LABS: ANA, IgG Reflex to HEp-2 None Detected (None Detected)
[2024-11-23 00:17] LABS: ds-DNA Ab, IgG Reflex To Titer 14 IU (0-24)
[2024-11-23 03:38] VITALS: BP 147/87
[2024-11-23] MEDS: SOLU-MEDROL PF 40 MG IV ×3 (03:39→20:17)
[2024-11-23 03:47] VITALS: BMI 25.8
[2024-11-23 04:21] LABS: % Basophils 0.1 % (0-2); % Immature Granulocytes 0.8 % (0-0.5); % Lymphocytes 9.8 % (20.5-51.1); % Neutrophils 87.3 % (42.2-75.2); Absolute Immature Granulocytes 0.1 10^3/uL (0-0.05); Absolute Lymphocytes 1.2 10^3/uL (1.2-3.4); Absolute Monocytes 0.2 10^3/uL (0.1-0.6); Absolute Neutrophils 10.7 10^3/uL (1.4-6.5); Hemoglobin 9.9 g/dL (13.0-18.0); Mean Corp Hgb Conc. 30.9 g/dL (33.0-37.0); Mean Corpuscular Hgb 25.7 pg (27.0-31.0); Mean Corpuscular Volume 83.1 fL (80.0-94.0); Mean Platelet Volume 10.4 fL (7.4-10.4); Nucleated Red Blood Cells % 0 % (-); Platelet Count 166 10^3/uL (130-400); Red Blood Cell Count 3.85 10^6/uL (4.70-6.10); Red Cell Dist. Width 17.1 % (11.5-14.5); White Blood Cell Count 12.2 10^3/uL (4.8-10.8)
[2024-11-23 05:04] LABS: Blood Urea Nitrogen 44 mg/dl (9-20); Calcium 7.4 mg/dl (8.4-10.2); Carbon Dioxide 40 mmol/L (22-30); Chloride 97 mmol/L (98-107); Estimated Creatinine Clearance 50 ml/min; Glucose 143 mg/dl (70-99); Sodium 137 mmol/L (135-145); eGFR > 60.00
[2024-11-23 05:10] LABS: Potassium 4.6 mmol/L (3.5-5.1)
[2024-11-23] MEDS: ALDACTONE 12.5 MG PO (07:29)
[2024-11-23] MEDS: REFRESH CELLUVISC GEL 1 DROPS BOTH EYES ×2 (07:29→15:41)
[2024-11-23] MEDS: PROTONIX 40 MG PO (07:29)
[2024-11-23] MEDS: MIRALAX PO (07:29)
[2024-11-23 07:31] VITALS: BP 150/94
[2024-11-23] MEDS: APRESOLINE 25 MG PO ×2 (07:31→20:17)
[2024-11-23] MEDS: FARXIGA 10 MG PO (07:31)
[2024-11-23] MEDS: COREG 12.5 MG PO ×2 (07:32→20:17)
[2024-11-23] MEDS: LASIX 80 MG IV ×2 (07:32→15:54)
[2024-11-23] MEDS: HEPARIN 5000 UNITS SC ×3 (07:32→23:00)
[2024-11-23 08:40] LABS: Glomerular Base Membrane Ab 0 AU/mL (0-19); Myeloperoxidase Antibody 0 AU/mL (0-19); Serine Protease-3, IgG 0 AU/mL (0-19)
[2024-11-23] MEDS: SYMBICORT 160/4.5 MCG INHALER 2 PUFF INH ×2 (08:56→21:09)
[2024-11-23] MEDS: SPIRIVA RESPIMAT 2.5 MCG 2 PUFF INH (08:56)
--- NOTE | 2024-11-23 09:13 | W.PN.HOSP.TC ---
Today's Communication/Plan
-
IV Lasix 80 mg twice a day. IV Solu-Medrol 40 mg every 8 hours.
Assessment / Plan
Assessment / Plan
Physical exam:
General: Well Developed, Well Nourished and No Apparent Distress
HEENT: Normocephalic, Atraumatic and Moist Mucous Membranes
Respiratory: Clear to Auscultation; Negative Wheezes, Rales or Rhonchi
Cardiac: Regular Rhythm and S1/S2
GI: Soft, Nontender and Nondistended
Musculoskeletal: No Clubbing, No Cyanosis and No Edema
Neuro: Awake, Alert and Oriented
Psych: Calm
A/P:
Impression:
Presentation with worsening of shortness of breath, weight gain, worsening of lower extremity edema
Acute hypoxic respiratory failure
Acute CHF preserved EF exacerbation.
Other conditions:
Chronic hypoxic respiratory failure on home O2 at 2 L intermittently.
Chronic CHF preserved EF
-ECHO 10/21/24: EF 60 to 65%, mild concentric LVH, stage III diastolic dysfunction, moderately dilated atria, mild MAC, moderate MR, mild TR, PAP 52 mmHg, ascending aorta top normal at 3.7 cm
Moderate MR
Pulmonary hypertension
CKD stage IIIb baseline creatinine 1.3.
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
Essential hypertension
Dyslipidemia.
GERD.
COPD.
Chronic anemia
Hypoalbuminemia.
Plan:
Acute hypoxic respiratory failure likely multifactorial due to CHF/volume overload as well as interstitial lung disease.
Acute CHF exacerbation
Echo as above.
IV diuresis with Lasix 60 mg IV twice daily monitor renal function, daily weights closely.
Chest x-ray with worsening bilateral diffuse infiltrates.
Noted elevated inflammatory markers including ESR and CRP.
ILD serology pending
With interstitial lung process, nephrotic range proteinuria concern for nephrotic/nephritic syndrome, there is a reasonable concern for systemic process
Patient is too deconditioned to consider renal biopsy
Pulmonology input appreciated.
Initiated on systemic steroids Solu-Medrol 11/21
Consideration of right heart cath
Hold valsartan and Norvasc to give room in BP for IV diuresis.
Hold Pletal acutely
Continue Coreg
CKD 3
Monitor renal function with diuresis closely
Nephrotic range proteinuria
Consider nephrology evaluation
Anemia of chronic disease per
Recent studies consistent with mixed picture of anemia of CKD and mild iron deficiency.
Will need GI evaluation as outpatient once cardiovascular status is optimized.
Check EPO level
IV iron.
Essential hypertension
Continue hydralazine, Coreg. Hold Norvasc and losartan.
GERD
On PPI
Full code.
DVT prophylaxis with heparin.
Time spent 54 minutes
Anticipated Discharge: > 48 hours
Subjective/Interval History
-
Date of Service: November 23, 2024
Patient still having some shortness of breath. No chest pain. Afebrile
Objective Data
-
Labs:
Laboratory Results
11/23/24
03:47
WBC 12.2 H
Hgb 9.9 L
Hct 32.0 L
Plt Count 166
Sodium 137
Potassium 4.6
Chloride 97 L
Carbon Dioxide 40 H
BUN 44 H
Creatinine 1.1
Glucose 143 H
Calcium 7.4 L
Vital Signs:
Vital Signs
Temp Pulse Resp BP Pulse Ox
97.4 F 88 16 150/94 97
11/23/24 03:35 11/23/24 08:59 11/23/24 08:59 11/23/24 07:32 11/23/24 07:29
I&O
11/22/24 11/23/24 11/24/24
06:59 06:59 06:59
Intake Total 720 / 720
Output Total 1400 / 1400 1925 / 1925 200 / 200
Balance -1400 / -1400 -1205 / -1205 -200 / -200
--- NOTE | 2024-11-23 09:57 | W.PN.PUL3 ---
Today's Communication / Plan
-
Continue systemic steroids with solumedrol - wean as he clinically improves --> wean tomorrow to 40 mg IV q12hr assuming he remains stable
Continue aggressive diuresis
Trend UOP, sCr and I/O with daily weight
Trend BNP
Follow up rheumatological panel checked on 11/21/2024 (so far shows elevated rheumatoid factor at 128 IU, and so is his SS-A Ab levels- will need to see rheum as an outpatient)
Up OOB as tolerated; PT/OT
Symbicort/spiriva with prn albuterol
Maintain SpO2 88-95% given Hx of COPD
Pulmonary service will continue to follow along
Assessment
-
Assessment: 84-year-old M with PMHx ofg HLD, HTN and COPD who p/w worsening LE edema and SOB. His son works here as a [employer] for [employer]. Pt has had worsening LE edema as well as his hands/wrists since he was recently discharged here on
11/05/2024. Alos having increasing weight. He had been reportedly compliant with his sodium and fluid restriction. In the ER he was afebrile to 98.5F, HR 75, RR 20, BP 141/71, and SpO2 93% on 3L/min. Initial labs with WBC 9.8, Hb 11.1, Cr 1.4,
troponin 0.042, BNP 3890, and albumin 1.8. Initial CXR showed prominent interstitial markings with fluid seen along the minor fissure, with moderate bilateral apical scarring. Given lasix 80mg IV in the ER. Was admitted to tele and then TRX to
IVU on 11/18/2024 for further. Pulmonary now consulted given his continued SOB and hypoxia despite being diuresed.
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
Impression:
#Acute respiratory failure with hypoxia on supplemental oxygen likely combination of ADH in setting of COPD, suspected ILD and hypoalbuminemia
#Acute decompensated heart failure
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
#Moderate COPD with borderline significant bronchodilator response, with mild�moderate restrictive lung defect (per PFT from 10/18/2024)
#Moderately reduced gas exchange capacity which is only borderline reduced when accounting for alveolar volume involved in gas exchange (DLco: 42%, DLco/VA: 73% per PFT from 10/18/2024)
#Hypoalbuminemia
#Chronic anemia
#Hyperglycemia
#Elevated troponin (0.042 on 11/14/2024)
#CKD with albuminuria
#Former tobacco smoker ([id number] history, quit smoking in the ) with centrilobular/paraseptal emphysema seen on CT chest from 11/01/2024
Plan:
- Continue treatment for heart failure with lasix 80mg IV BID
- Maintain net negative fluid balance as tolerated
- Trend BNP
- Pt's has elevated inflammatory markers and given his concern for SARD-ILD, on 11/21/2024 I started him on systemic steroids with solumedrol 40mg IV q8hr --> wean as he clinically improves
- I will start to wean solumedrol tomorrow to 40 mg IV q12hr assuming he is continuing to be stable from pulmonary perspective
- Rheumatological panel checked AM of 11/21/2024 before steroids were started - follow this up (so far his RF is elevated at 128 IU and his SS-A Ab levels are elevated)
- Urine protein/Cr is 16; nephrology on board and recs appreciated
- Maintain SpO2 88-95% with supplemental O2 and wean down as tolerated
- Antitussants prn
- On trelegy as an outpatient --> continue Symbicort and spiriva. Rinse mouth after symbicort to avoid thrush
- Changed prn DuoNebs to albuterol as he is already on spiriva
- Trend troponin until begins to downtrend
- Incentive spirometer q1hr while awake
- Replete electrolytes with K>4, Mg>2
- Maintain euglycemia with goal BG >100 and <180
- Transfuse if needed to keep Hb>7-8g/dL
- DVT ppx: HSQ
Pulmonary service will continue to follow along. Continue follow up with us in the office as last visit was on 10/18/[address] Larson.
Data:
CXR 11/20/2024:
Progression of bilateral interstitial and alveolar opacification in comparison to recent prior study for which acute inflammatory/infectious etiology would be most likely with possible underlying chronic interstitial changes.
Small right pleural effusion, increased.
Total time spent today was 41 minutes for this encounter. Time includes reviewing laboratory test/imaging results, reviewing pertinent medical records, obtaining and reviewing medical history, performing an appropriate exam, ordering medications,
tests and procedures. Time also includes documentation of this encounter, coordinating patient care and communicating with other healthcare professionals. Total time does not include separately billed tests performed on this date of service.
Subjective Data
-
Date of Service:
Date of Service: November 23, 2024
Chief Complaint: Pulmonary Follow Up
Subjective:
Patient seen at bedside and he is sitting in the chair in no acute distress on 2 L/min which is his baseline. He says he is feeling better. Multiple family members at bedside including his , and all questions were answered. Current heart rate
66 and BP 148/68. He denies chest pain, BACH, nausea, fevers or chills.
Review of Systems
General: Other (Negative unless mentioned above)
Objective Data
Data Reviewed
Vital Signs / I&O / Oxygen:
Vital Signs
Temp Pulse Resp BP Pulse Ox
97.4 F 88 16 150/94 97
11/23/24 03:35 11/23/24 08:59 11/23/24 08:59 11/23/24 07:32 11/23/24 07:29
Intake and Output
11/22/24 11/23/24 11/24/24
06:59 06:59 06:59
Intake Total 720 / 720
Output Total 1400 / 1400 1925 / 192 200 / 200
Balance -1400 / -1400 -1205 / -1205 -200 / -200
SaO2 97
Nasal Cannula flow liters per 2
minute
Physical Exam
General: Respiratory Distress (negative), Comfortable, Chills (negative) and Sweats (negative)
HEENT: Normocephalic and Anicteric
Cardiovascular: S1-S2, Murmur (CHRISSY heard diffusely (grade III/)), Rub (negative) and Peripheral Edema (negative)
Respiratory: Wheeze (negative), Crackles (bilaterally mainly in the bases), Rhonchi (negative), Non-Labored Respirations and Stridor (negative)
GI: Soft, Non Distended, Non Tender and Normal Bowel Sounds
Neurology: AO x 3 and Tremors (negative)
Skin: Warm, Dry, Cyanosis (negative) and Jaundice (negative)
Labs/Micro/Reports
Lab Data
11/23/24 03:47
11/23/24 03:47
--- NOTE | 2024-11-23 10:01 | W.PN.CARDCBS ---
Addendum entered and electronically signed by Tim Nuñez MD 11/23/24 11:15:
Patient seen, interviewed and examined by me.
He is sitting in chair watching television, appears comfortable.
Tells me that he feels his breathing is better. No chest pain. No palpitations. No dizziness
Well-appearing, no acute distress
Regular rate and rhythm with normal S1 and S2, no S3 no S4. There is a grade 1/6 apical holosystolic murmur and no rubs. PMI is normally placed.
Lungs are clear to auscultation bilaterally without wheezes rales or rhonchi.
Abdomen soft nontender nondistended with normoactive bowel sounds
Extremities show trace pretibial edema bilaterally no clubbing or cyanosis.
Neurologic exam is grossly nonfocal.
Assessment:
Clinically improving.
Heart failure with preserved ejection fraction and volume overload contributing to decompensated heart failure.
However it is difficult to assess how much of the overall volume overload is intravascular versus extravascular.
Continue diuresis with Lasix 40 mg IV twice daily. Weight is down 1.5 pounds. Creatinine stable but BUN/creatinine is rising and he is alkalotic, possibly contraction alkalosis
We may need to back off on IV diuresis but will continue for today and reassess
Will plan for right heart catheterization on Monday as long as he is clinically stable enough. This should help us better distinguish intravascular versus extravascular etiology.
Nephrotic range proteinuria/hypoalbuminemia.
Nephrology is concerned this could represent minimal-change versus membranous nephropathy.
Steroids have been introduced to help manage his underlying interstitial lung disease and this may help with his proteinuria. Further testing/serologies are pending
COPD as well as suspected underlying interstitial lung disease. There is concern for systemic autoimmune rheumatologic disease associated with interstitial lung disease
Pulmonary is following closely and steroids have been initiated
Original Note:
Today's Communication / Plan
-
-cont diuresis
-renal fxn stable
-RHC being considered for next week - not currently on schedule
Impression / Plan
-
Primary Reconcilement Clerk: Dr. Elizondo
Impression:
Presentation 11/14/2024 with recurrent weight gain, LE edema, MUNOZ
Acute HFpEF, proBNP, proBNP 3890
Abnormal troponin, suspect nonischemic myocardial injury secondary to acute heart failure exacerbation
Admission to 10/31-11/05/24 for new HFpEF
Atrial tachycardia
Moderate MR
CKD
PAD, abnormal L IVAN, mod to severe claudication
HTN
HLD
GERD
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
Hernia
Anemia
Hypoalbuminemia
ECHO 10/21/24: EF 60 to 65%, mild concentric LVH, stage III diastolic dysfunction, moderately dilated atria, mild MAC, moderate MR, mild TR, PAP 52 mmHg, ascending aorta top normal at 3.7 cm
Plan:
-had admission 10/31-11/05 for new CHF. then returned to due to recurrent weight gain, lower extremity edema, MUNOZ despite escalating OP diuretic therapy. remains with edema and c/o continued SOB although improving from admission
-sitting in chair
-continue IV lasix 80mg BID. weight down 24 pounds thus far from admission if accurate. establishing new dry weight. prior to admission was on po lasix 40mg daily increased several days prior to admission to 40mg BID
-Cr improved from admission, stable at 1.1. considering RHC next week if able to lie flat
-edema multifactorial as he also has significant hypoalbuminemia and low protein. he is noted to have 2+ albumin and 3+ occult blood in his urine. Protein/Cr ratio was elevated in October, 7.6, higher now at 16. nephrology following. attempting to
avoid renal biopsy due to respiratory status. started on steroids 11/21. ESR/CRP elevated. rheum work up pending
-wean supp O2 as able
-CHF education
-continue compression therapy
-he is noted to be anemic with abnormal iron studies and is receiving iron repletion.
-echo with results as above
-continue coreg, will increase dose due to several brief episodes of PAT on review of tele overnight. farxiga and aldactone added this admission. OP valsartan on hold. OP norvasc stopped
-Given CHF cilostazol stopped
-PT following
HPI 11/15/2024:
History of Present Illness:
Patient is an 84-year-old male with past medical history of hypertension, hyperlipidemia, GERD, recent diagnosis COPD with former smoking who presents to [facility] emergency room for evaluation of worsening lower extremity edema since
discharge. He had presented with LE edema 10/31 and was admitted. Diuresed well with IV lasix 40mg BID and was discharged 11/05/24 at weight of 186 pounds on po lasix 40mg daily. Patient and family at bedside report since DC he has gained 12 pounds
and edema is back in B/L legs up to groin area. He was seen in cardiology office 11/12 and felt to be in failure and lasix dose was increased to 40mg BID without improvement so came to ER for eval. proBNP 3890 and CXR with evidence of improved CHF vs
PNA compared to prior from 10/2024. Son reports he has been compliant with fluid and salt restrictions at home. cardiology consulted for evaluation.
Progress Note - Reconcilement Clerk
Subjective
Date of Service: November 23, 2024
says he feels like he's getting better
LE edema improved
Objective
Labs:
11/23/24 03:47
11/23/24 03:47
Labs
Hgb 9.9 g/dL (13.0-18.0) L 11/23/24 03:47
Hct 32.0 % (39.0-52.0) L 11/23/24 03:47
Plt Count 166 10^3/uL (130-400) 11/23/24 03:47
Sodium 137 mmol/L (135-145) 11/23/24 03:47
Potassium 4.6 mmol/L (3.5-5.1) 11/23/24 03:47
BUN 44 mg/dl (9-20) H 11/23/24 03:47
Creatinine 1.1 mg/dL (0.7-1.3) 11/23/24 03:47
Glucose 143 mg/dl (70-99) H 11/23/24 03:47
Vital Signs and I&O:
Vital Signs
Temp Pulse Resp BP Pulse Ox
97.4 F 88 16 150/94 97
11/23/24 03:35 11/23/24 08:59 11/23/24 08:59 11/23/24 07:32 11/23/24 07:29
Vital Signs
Temp Pulse Resp BP Pulse Ox
97.4 F 88 16 150/94 97
11/23/24 03:35 11/23/24 08:59 11/23/24 08:59 11/23/24 07:32 11/23/24 07:29
Intake & Output
11/21/24 11/22/24 11/23/24 11/24/24
06:59 06:59 06:59 06:59
Intake Total 240 / 240 720 / 720
Output Total 1315 / 1315 1400 / 1400 1925 / 1925 200 / 200
Balance -1075 / -1075 -1400 / -1400 -1205 / -1205 -200 / -200
Physical Exam
Physical Exam
GEN: No distress, awake, Ox3
HEENT: supple, anicteric, mmm
LUNGS: CTA, no wheezes/rales
CV: Reg, S1/S2, 1/6 syst LSB, no murmur
ABD: soft, BS+, NT/ND
EXT:trace edema B/L
NEURO: Gross non-focal
SKIN: No rash
[2024-11-23 10:04] LABS: Jo-1 Antibodies 1 AU/mL (0-40); SSA 52 (Ro)(ENA) Ab, IgG 185 AU/mL (0-40); SSA 60 (Ro)(ENA) Ab, IgG 0 AU/mL (0-40); SSB (La)(ENA) Ab, IgG 0 AU/mL (0-40); Scleroderma Antibody (Scl-70) 0 AU/mL (0-40)
--- NOTE | 2024-11-23 10:08 | PTCARENOTE ---
assumed care of patient - pt oob in chair without complaints
[2024-11-23 10:29] LABS: Centromere Antibody 0 AU/mL (0-40); SSA 52 (Ro)(ENA) Ab, IgG 194 AU/mL (0-40); SSA 60 (Ro)(ENA) Ab, IgG 2 AU/mL (0-40); SSB (La)(ENA) Ab, IgG 1 AU/mL (0-40)
[2024-11-23 11:11] VITALS: BP 153/76
[2024-11-23 15:36] VITALS: BP 148/68
--- NOTE | 2024-11-23 16:15 | PTCARENOTE ---
pt oob in chair most of day without complaints, family at bedside. Diuresis continues silvia patient denies SOB.
[2024-11-23 17:18] LABS: Phospholipase A2 Receptor, IgG <1:10 (<1:10)
--- NOTE | 2024-11-23 18:44 | W.PN.NEPH.PH ---
Today's Communication / Plan
-
continue diuretics
Assessment/Plan
-
Impression:
Nephrotic range proteinuria/hypoalbuminemia
Microhematuria
Decompensated congestive heart failure
Metabolic alkalosis
COPD/ILD
CKD (1.1): Renal ultrasound notes bilateral renal cysts no hydronephrosis normal size kidneys)
Plan:
Nephrotic range proteinuria with associated microhematuria and hypoalbuminemia
-Ongoing edema could also be partially complicated by hypoalbuminemia due to nephrotic range proteinuria
-The presence of microhematuria in combination with nephrotic range proteinuria could be indicative of glomerular nephritis
-Check a repeat urine protein to creatinine ratio and a full autoimmune serological workup: 16 grams proteinuria: concerning for minimal change vs membranous nephropathy
-I am not sure this patient is a appropriate renal biopsy candidate given his poor lung function and multiple comorbidities in the setting of his advanced age
-
-Renal ultrasound reviewed noted normal-sized kidneys with small simple cyst no evidence of hydronephrosis
-I suspect his metabolic alkalosis is at least partially compensatory in the setting of respiratory acidosis from hypercapnia in the setting of his lung disease in addition to a possible underlying contraction alkalosis
steroids are introduced for his underlying ILD= will see if there is a response from proteinuria aspect from steroid
serology is negative except for a rheumatoid factor.
Continue with diuretics so for now he's weights have gone down nicely 10 kg.
Possible right heart cath on Monday per cardiology
-
-
Date of Service: November 23, 2024
CC / HPI / ROS
-
Chief Complaint:
Nephrotic range proteinuria
History of Present Illness:
Creatinine unchanged at 1.1
Hemodynamically stable
Review of Systems:
Subjectively nonoliguric
Weights unchanged
No complaints of chest pain or shortness of breath although remains on oxygen
Labs
-
Labs:
WBC 12.2 10^3/uL (4.8-10.8) H 11/23/24 03:47
RBC 3.85 10^6/uL (4.70-6.10) L 11/23/24 03:47
Hgb 9.9 g/dL (13.0-18.0) L 11/23/24 03:47
Hct 32.0 % (39.0-52.0) L 11/23/24 03:47
Plt Count 166 10^3/uL (130-400) 11/23/24 03:47
Sodium 137 mmol/L (135-145) 11/23/24 03:47
Potassium 4.6 mmol/L (3.5-5.1) 11/23/24 03:47
Chloride 97 mmol/L (98-107) L 11/23/24 03:47
Carbon Dioxide 40 mmol/L (22-30) H 11/23/24 03:47
BUN 44 mg/dl (9-20) H 11/23/24 03:47
Creatinine 1.1 mg/dL (0.7-1.3) 11/23/24 03:47
eGFR > 60.00 11/23/24 03:47
Glucose 143 mg/dl (70-99) H 11/23/24 03:47
Calcium 7.4 mg/dl (8.4-10.2) L 11/23/24 03:47
Ldt-E-Siwooyvzqks Pept 6090 pg/ml 11/21/24 01:47
Albumin 2.2 g/dl (3.5-5.0) L 11/20/24 10:25
Physical Exam
-
Vital Signs:
Vital Signs
Temp Pulse Resp BP Pulse Ox
97.5 F 67 18 148/68 97
11/23/24 15:41 11/23/24 17:00 11/23/24 15:41 11/23/24 15:36 11/23/24 15:41
Cardiovascular:: Regular rate and rhythm
Respiratory:: Bilateral: Coarse and Bilateral: Rales (At bases)
Lung Excursion:: Normal
Abdomen:: Nontender and Soft
Bowel Sounds:: Normal
Extremity Edema:: +2: Bilateral:
Rey Catheter: No
[2024-11-23 20:11] VITALS: BP 148/76
[2024-11-23] MEDS: REFRESH CELLUVISC GEL BOTH EYES (21:15)
--- NOTE | 2024-11-23 21:49 | PTCARENOTE ---
Patient received at change of shift resting comfortably in the chair. Denies pain at this time. Patient remains on 2L NC with oxygen saturation 96%. Sinus rhythm on the monitoring manager. Patient states his breathing remains improved and overall
feels better. Plan of care reviewed with patient. Call [facility] within reach. Care ongoing.
[2024-11-23] MEDS: ZOLOFT 25 MG PO (22:59)
[2024-11-23 23:04] VITALS: BP 157/72
[2024-11-24] VITALS (8 sets, daily range): BP systolic 139–170; BP diastolic 73–96; BMI 25.6
[2024-11-24 03:32] LABS: Hematocrit 33.7 % (39.0-52.0); Hemoglobin 10.4 g/dL (13.0-18.0); Mean Corp Hgb Conc. 30.9 g/dL (33.0-37.0); Mean Corpuscular Hgb 25.8 pg (27.0-31.0); Mean Corpuscular Volume 83.6 fL (80.0-94.0); Mean Platelet Volume 10.2 fL (7.4-10.4); Platelet Count 195 10^3/uL (130-400); Red Blood Cell Count 4.03 10^6/uL (4.70-6.10); Red Cell Dist. Width 17.2 % (11.5-14.5); White Blood Cell Count 14.2 10^3/uL (4.8-10.8)
[2024-11-24 03:55] LABS: Blood Urea Nitrogen 53 mg/dl (9-20); Calcium 7.7 mg/dl (8.4-10.2); Chloride 93 mmol/L (98-107); Estimated Creatinine Clearance 42 ml/min; Glucose 142 mg/dl (70-99); Magnesium 2.4 mg/dl (1.6-2.3); Sodium 136 mmol/L (135-145); eGFR 54.85
[2024-11-24 04:05] LABS: Carbon Dioxide 38 mmol/L (22-30)
[2024-11-24] MEDS: SOLU-MEDROL PF 40 MG IV ×3 (04:12→20:10)
--- NOTE | 2024-11-24 07:12 | W.PN.CARDCBS ---
Today's Communication / Plan
-
Stopping Lasix as he may be a bit over diuresed
Right heart cath tomorrow to better assess intravascular volume status
Impression / Plan
-
Primary Key Account Manager: Dr. Elizondo
He had admission 10/31-11/05 for new CHF. then returned to due to recurrent weight gain, lower extremity edema, MUNOZ despite escalating OP diuretic therapy.
Impression:
Presentation 11/14/2024 with recurrent weight gain, LE edema, MUNOZ
Acute HFpEF, proBNP, proBNP 3890
Abnormal troponin, suspect nonischemic myocardial injury secondary to acute heart failure exacerbation
Admission to 10/31-11/05/24 for new HFpEF
Atrial tachycardia
Moderate MR
CKD
PAD, abnormal L IVAN, mod to severe claudication
HTN
HLD
GERD
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
Hernia
Anemia
Hypoalbuminemia
ECHO 10/21/24: EF 60 to 65%, mild concentric LVH, stage III diastolic dysfunction, moderately dilated atria, mild MAC, moderate MR, mild TR, PAP 52 mmHg, ascending aorta top normal at 3.7 cm
Plan:
Heart failure with preserved ejection fraction
Volume overload contributing to decompensated heart failure, however it is difficult to assess how much of the overall volume overload is intravascular versus extravascular.
Weight is down 1 pound past 24 hrs and down 25 lbs since adm.
Rising creatinine and BUN/creatinine ratio with likely contraction alkalosis
Will stop IV diuresis, (was on Lasix 80 mg IV twice daily ) and assess right heart cath before deciding on further diuretics.
Will plan for right heart catheterization on Monday. This should help us better distinguish intravascular versus extravascular etiology.
Maintain carvedilol 12.5 mg twice daily, Farxiga 10 mg daily, Aldactone 12.5 mg daily
Given CHF cilostazol stopped
Nephrotic range proteinuria/hypoalbuminemia.
Nephrology is concerned this could represent minimal-change versus membranous nephropathy.
Steroids have been introduced to help manage his underlying interstitial lung disease and this may help with his proteinuria. Further testing/serologies are pending
Nephrology is concerned patient is poor candidate for renal biopsy given his poor lung function and comorbidities as well as advanced age
From a cardiology standpoint we should be able to get him compensated enough to have renal biopsy
COPD as well as suspected underlying interstitial lung disease. There is concern for Systemic Autoimmune Rheumatologic Disease (SARD) associated with interstitial lung disease
Elevated rheumatoid factor and SS�A antibody level
Pulmonary is following closely and steroids have been initiated
Deconditioning
Physical therapy is seen the patient
Anemia
Evaluation as per primary service, he is receiving iron
Total time 50 min
Progress Note - Key Account Manager
Subjective
Date of Service: November 24, 2024
He tells me he has had no chest pain or palpitations. Shortness of breath is improved. He notices edema has improved but is still present in the lower extremities as well
Objective
Labs:
11/24/24 02:50
11/24/24 02:50
Labs
Hgb 10.4 g/dL (13.0-18.0) L 11/24/24 02:50
Hct 33.7 % (39.0-52.0) L 11/24/24 02:50
Plt Count 195 10^3/uL (130-400) 11/24/24 02:50
Sodium 136 mmol/L (135-145) 11/24/24 02:50
Potassium 5.0 mmol/L (3.5-5.1) 11/24/24 02:50
BUN 53 mg/dl (9-20) H 11/24/24 02:50
Creatinine 1.3 mg/dL (0.7-1.3) 11/24/24 02:50
Glucose 142 mg/dl (70-99) H 11/24/24 02:50
Vital Signs and I&O:
Vital Signs
Temp Pulse Resp BP Pulse Ox
97.9 F 61 20 152/96 99
11/24/24 06:45 11/24/24 06:00 11/24/24 06:45 11/24/24 02:47 11/24/24 06:45
Vital Signs
Temp Pulse Resp BP Pulse Ox
97.9 F 61 20 152/96 99
11/24/24 06:45 11/24/24 06:00 11/24/24 06:45 11/24/24 02:47 11/24/24 06:45
Intake & Output
11/22/24 11/23/24 11/24/24 11/25/24
06:59 06:59 06:59 06:59
Intake Total 720 / 720 240 / 240
Output Total 1400 / 1400 1925 / 1925 1300 / 1300
Balance -1400 / -1400 -1205 / -1205 -1060 / -1060
Physical Exam
Physical Exam
Well-appearing, no acute distress
Regular rate and rhythm with normal S1 and S2, no S3 no S4. There is a grade 1/6 apical holosystolic murmur and no rubs. PMI is normally placed.
Lungs are clear to auscultation bilaterally without wheezes rales or rhonchi.
Abdomen soft nontender nondistended with normoactive bowel sounds
Extremities show +1 pretibial edema bilaterally no clubbing or cyanosis.
Neurologic exam is grossly nonfocal.
[2024-11-24] MEDS: ALDACTONE 12.5 MG PO (08:59)
[2024-11-24] MEDS: APRESOLINE 25 MG PO ×2 (08:59→20:10)
[2024-11-24] MEDS: HEPARIN 5000 UNITS SC ×3 (09:00→23:08)
[2024-11-24] MEDS: COREG 12.5 MG PO ×2 (09:00→20:10)
[2024-11-24] MEDS: PROTONIX 40 MG PO (09:00)
[2024-11-24] MEDS: FARXIGA 10 MG PO (09:00)
[2024-11-24] MEDS: REFRESH CELLUVISC GEL 1 DROPS BOTH EYES (09:00)
[2024-11-24] MEDS: FLUSH (NSS) 1 FLUSH IV (09:01)
--- NOTE | 2024-11-24 09:01 | W.PN.HOSP.TC ---
Today's Communication/Plan
-
IV steroids. Diuretics. Right heart cath in a.m.
Assessment / Plan
Assessment / Plan
Physical exam:
General: Acute on chronically ill
HEENT: Normocephalic, Atraumatic and Moist Mucous Membranes
Respiratory: Relatively clear to Auscultation but some rhonchi; Negative Wheezes, Rales
Cardiac: Regular Rhythm and S1/S2
GI: Soft, Nontender and Nondistended
Musculoskeletal: Bilateral lower extremity edema 1+. No Clubbing, No Cyanosis
Neuro: Awake, Alert and Oriented, no neurodeficits
Psych: Calm
A/P:
Impression:
Presentation with worsening of shortness of breath, weight gain, worsening of lower extremity edema
Acute hypoxic respiratory failure
Acute CHF preserved EF exacerbation.
Other conditions:
Chronic hypoxic respiratory failure on home O2 at 2 L intermittently.
Chronic CHF preserved EF
-ECHO 10/21/24: EF 60 to 65%, mild concentric LVH, stage III diastolic dysfunction, moderately dilated atria, mild MAC, moderate MR, mild TR, PAP 52 mmHg, ascending aorta top normal at 3.7 cm
Moderate MR
Pulmonary hypertension
CKD stage IIIb baseline creatinine 1.3.
PAD with abnormal left IVAN/moderate to severe claudication on Pletal DIRECTOR INTERNAL AUDIT.
Essential hypertension
Dyslipidemia.
GERD.
COPD.
Chronic anemia
Hypoalbuminemia.
Plan:
Acute hypoxic respiratory failure likely multifactorial due to CHF/volume overload as well as interstitial lung disease.
Acute CHF exacerbation
Echo as above.
IV diuresis with Lasix 60 mg IV twice daily-->Cardiology stopping diuretics today and plan for right heart cath tomorrow.
Chest x-ray with worsening bilateral diffuse infiltrates.
Noted elevated inflammatory markers including ESR and CRP.
ILD serology pending
With interstitial lung process, nephrotic range proteinuria concern for nephrotic/nephritic syndrome, there is a reasonable concern for systemic process
Patient is too deconditioned to consider renal biopsy
Pulmonology input appreciated.
Initiated on systemic steroids Solu-Medrol 11/21. Remains on Solu-Medrol 40 mg IV every 8 hours; consideration to go down to 40 mg IV every 12 hours today.
Hold valsartan for now until cardiac cath and renal function back tomorrow. Resume Norvasc for blood pressure control.
Hold Pletal acutely
Continue Coreg 12.5 mg p.o. twice a day
CKD 3
Monitor renal function with diuresis closely
Nephrotic range proteinuria
Nephrology on board and concerns for minimal-change versus membranous nephropathy
Anemia of chronic disease
Recent studies consistent with mixed picture of anemia of CKD and mild iron deficiency.
Will need GI evaluation as outpatient once cardiovascular status is optimized.
Check EPO level
IV iron.
Essential hypertension
Continue hydralazine, Coreg. Hold losartan. Resume Norvasc.
GERD
On PPI
Full code.
DVT prophylaxis with heparin.
Time spent 54 minutes
Anticipated Discharge: > 48 hours
Subjective/Interval History
-
Date of Service: November 24, 2024
Patient feels better overall. Less shortness of breath. No chest pain. Afebrile. On supplemental oxygen
Objective Data
-
Labs:
Laboratory Results
11/24/24
02:50
WBC 14.2 H
Hgb 10.4 L
Hct 33.7 L
Plt Count 195
Sodium 136
Potassium 5.0
Chloride 93 L
Carbon Dioxide 38 H
BUN 53 H
Creatinine 1.3
Glucose 142 H
Calcium 7.7 L
Vital Signs:
Vital Signs
Temp Pulse Resp BP Pulse Ox
97.9 F 61 20 166/83 99
11/24/24 06:45 11/24/24 07:00 11/24/24 06:45 11/24/24 06:49 11/24/24 06:45
I&O
11/23/24 11/24/24 11/25/24
06:59 06:59 06:59
Intake Total 720 / 720 240 / 240
Output Total 1925 / 192 1300 / 1300
Balance -1205 / -1205 -1060 / -1060
[2024-11-24] MEDS: MIRALAX PO (09:05)
[2024-11-24] MEDS: SYMBICORT 160/4.5 MCG INHALER 2 PUFF INH (09:26)
[2024-11-24] MEDS: SPIRIVA RESPIMAT 2.5 MCG 2 PUFF INH (09:26)
--- NOTE | 2024-11-24 09:28 | W.PN.PUL3 ---
Today's Communication / Plan
-
Continue systemic steroids with solumedrol - wean as he clinically improves --> wean tomorrow (11/25) to 40 mg IV q12hr
Diuresis stopped on 11/23/2024 � right heart cath pending for tomorrow
Trend UOP, sCr and I/O with daily weight
Trend BNP
Rheumatological panel checked on 11/21/2024- shows elevated rheumatoid factor at 128 IU and elevated SS-A Ab levels- will need to see rheum as an outpatient); f/u HP-panel
Up OOB as tolerated; PT/OT
Symbicort/spiriva with prn albuterol
Maintain SpO2 88-95% given Hx of COPD
Pulmonary service will continue to follow along
Assessment
-
Assessment: 84-year-old M with PMHx ofg HLD, HTN and COPD who p/w worsening LE edema and SOB. 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 Pt has had worsening LE edema as well as his hands/wrists since he was recently discharged here on
11/05/2024. Alos having increasing weight. He had been reportedly compliant with his sodium and fluid restriction. In the ER he was afebrile to 98.5F, HR 75, RR 20, BP 141/71, and SpO2 93% on 3L/min. Initial labs with WBC 9.8, Hb 11.1, Cr 1.4,
troponin 0.042, BNP 3890, and albumin 1.8. Initial CXR showed prominent interstitial markings with fluid seen along the minor fissure, with moderate bilateral apical scarring. Given lasix 80mg IV in the ER. Was admitted to tele and then TRX to
IVU on 11/18/2024 for further. Pulmonary now consulted given his continued SOB and hypoxia despite being diuresed.
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
Impression:
#Acute respiratory failure with hypoxia on supplemental oxygen likely combination of ADH in setting of COPD, suspected ILD and hypoalbuminemia
#Acute decompensated heart failure
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
#Moderate COPD with borderline significant bronchodilator response, with mild�moderate restrictive lung defect (per PFT from 10/18/2024)
#Moderately reduced gas exchange capacity which is only borderline reduced when accounting for alveolar volume involved in gas exchange (DLco: 42%, DLco/VA: 73% per PFT from 10/18/2024)
#Hypoalbuminemia
#Chronic anemia
#Hyperglycemia
#Elevated troponin (0.042 on 11/14/2024)
#CKD with albuminuria
#Former tobacco smoker ([id number] history, quit smoking in the ) with centrilobular/paraseptal emphysema seen on CT chest from 11/01/2024
Plan:
- Pt was being Tx with aggressive diuresis for suspected heart failure with lasix 80mg IV BID --> DC'd on 11/23/2023
- he is pending a RHC tomorrow (11/25)
- Monitor I/O and trend UOP
- Trend BNP
- Pt's has elevated inflammatory markers and given his concern for SARD-ILD, on 11/21/2024 I started him on systemic steroids with solumedrol 40mg IV q8hr --> wean as he clinically improves
- I will start to wean solumedrol tomorrow (11/25) to 40 mg IV q12hr
- Rheumatological panel checked AM of 11/21/2024 before steroids were started -RF is elevated at 128 IU and his SS-A Ab levels are elevated; HP-panel pending
- Urine protein/Cr is 16; nephrology on board and recs appreciated
- Maintain SpO2 88-95% with supplemental O2 and wean down as tolerated
- Antitussants prn
- On trelegy as an outpatient --> continue Symbicort and spiriva. Rinse mouth after symbicort to avoid thrush
- Changed prn DuoNebs to albuterol as he is already on spiriva
- Trend troponin until begins to downtrend
- Incentive spirometer q1hr while awake
- Replete electrolytes with K>4, Mg>2
- Maintain euglycemia with goal BG >100 and <180
- Transfuse if needed to keep Hb>7-8g/dL
- DVT ppx: HSQ
Pulmonary service will continue to follow along. Continue follow up with us in the office as last visit was on 10/18/[address] Larson.
Data:
CXR 11/20/2024:
Progression of bilateral interstitial and alveolar opacification in comparison to recent prior study for which acute inflammatory/infectious etiology would be most likely with possible underlying chronic interstitial changes.
Small right pleural effusion, increased.
Total time spent today was 37 minutes for this encounter. Time includes reviewing laboratory test/imaging results, reviewing pertinent medical records, obtaining and reviewing medical history, performing an appropriate exam, ordering medications,
tests and procedures. Time also includes documentation of this encounter, coordinating patient care and communicating with other healthcare professionals. Total time does not include separately billed tests performed on this date of service.
Subjective Data
-
Date of Service:
Date of Service: November 24, 2024
Chief Complaint: Pulmonary Follow Up
Subjective:
Patient seen earlier this afternoon (late note entry). He continues to feel better, currently on 2 L/min nasal cannula. No shortness of breath at rest. He denies chest pain, BACH, nausea, fevers or chills.
Review of Systems
General: Other (Negative unless mentioned above)
Objective Data
Data Reviewed
Vital Signs / I&O / Oxygen:
Vital Signs
Temp Pulse Resp BP Pulse Ox
97.9 F 61 20 166/83 99
11/24/24 06:45 11/24/24 07:00 11/24/24 06:45 11/24/24 06:49 11/24/24 06:45
Intake and Output
11/23/24 11/24/24 11/25/24
06:59 06:59 06:59
Intake Total 720 / 720 240 / 240
Output Total 1924 / 1924 1300 / 1300
Balance -1205 / -1205 -1060 / -1060
SaO2 99
Nasal Cannula flow liters per 2
minute
Physical Exam
General: Respiratory Distress (negative), Comfortable, Chills (negative) and Sweats (negative)
HEENT: Normocephalic and Anicteric
Cardiovascular: S1-S2, Murmur (CHRISSY heard diffusely (grade III/)), Rub (negative) and Peripheral Edema (negative)
Respiratory: Wheeze (negative), Crackles (bilaterally mainly in the bases), Rhonchi (negative), Non-Labored Respirations and Stridor (negative)
GI: Soft, Non Distended, Non Tender and Normal Bowel Sounds
Neurology: AO x 3 and Tremors (negative)
Skin: Warm, Dry, Cyanosis (negative) and Jaundice (negative)
Labs/Micro/Reports
Lab Data
11/24/24 02:50
11/24/24 02:50
--- NOTE | 2024-11-24 10:54 | PTCARENOTE ---
Received patient this morning oob in the chair eating his breakfast. Offers no complaints, aware he is for a [facility] tomorrow. Call milla in reach.
--- NOTE | 2024-11-24 12:50 | PTCARENOTE ---
TT to nursing bit and shank department supervisor to place patient on cath schedule for RHC tomorrow.
[2024-11-24] MEDS: NORVASC 5 MG PO (13:05)
--- NOTE | 2024-11-24 15:20 | W.PN.NEPH.PH ---
Today's Communication / Plan
-
diuretics held
Assessment/Plan
-
Impression:
Nephrotic range proteinuria/hypoalbuminemia
Microhematuria
Decompensated congestive heart failure
Metabolic alkalosis
COPD/ILD
CKD (1.1): Renal ultrasound notes bilateral renal cysts no hydronephrosis normal size kidneys)
Plan:
Nephrotic range proteinuria with associated microhematuria and hypoalbuminemia
-Ongoing edema could also be partially complicated by hypoalbuminemia due to nephrotic range proteinuria
-The presence of microhematuria in combination with nephrotic range proteinuria could be indicative of glomerular nephritis
-Check a repeat urine protein to creatinine ratio and a full autoimmune serological workup: 16 grams proteinuria: concerning for minimal change vs membranous nephropathy= PLA2r negative
-I am not sure this patient is a appropriate renal biopsy candidate given his poor lung function and multiple comorbidities in the setting of his advanced age
-
-Renal ultrasound reviewed noted normal-sized kidneys with small simple cyst no evidence of hydronephrosis
-I suspect his metabolic alkalosis is at least partially compensatory in the setting of respiratory acidosis from hypercapnia in the setting of his lung disease in addition to a possible underlying contraction alkalosis
steroids are introduced for his underlying ILD= will see if there is a response from proteinuria aspect from steroid
serology is negative except for a rheumatoid factor.
right heart cath on Monday per cardiology
10 kg weight loss and since admission diuretics held today by cardiology/agree
-
-
Date of Service: November 24, 2024
CC / HPI / ROS
-
Chief Complaint:
Nephrotic range proteinuria
History of Present Illness:
Creatinine unchanged at 1.1
Hemodynamically stable
Review of Systems:
Subjectively nonoliguric
Weights unchanged
No complaints of chest pain or shortness of breath although remains on oxygen
Labs
-
Labs:
WBC 14.2 10^3/uL (4.8-10.8) H 11/24/24 02:50
RBC 4.03 10^6/uL (4.70-6.10) L 11/24/24 02:50
Hgb 10.4 g/dL (13.0-18.0) L 11/24/24 02:50
Hct 33.7 % (39.0-52.0) L 11/24/24 02:50
Plt Count 195 10^3/uL (130-400) 11/24/24 02:50
Sodium 136 mmol/L (135-145) 11/24/24 02:50
Potassium 5.0 mmol/L (3.5-5.1) 11/24/24 02:50
Chloride 93 mmol/L (98-107) L 11/24/24 02:50
Carbon Dioxide 38 mmol/L (22-30) H 11/24/24 02:50
BUN 53 mg/dl (9-20) H 11/24/24 02:50
Creatinine 1.3 mg/dL (0.7-1.3) 11/24/24 02:50
eGFR 54.85 11/24/24 02:50
Glucose 142 mg/dl (70-99) H 11/24/24 02:50
Calcium 7.7 mg/dl (8.4-10.2) L 11/24/24 02:50
Vmw-[id number] Pept 6090 pg/ml 11/21/24 01:47
Albumin 2.2 g/dl (3.5-5.0) L 11/20/24 10:25
Physical Exam
-
Vital Signs:
Vital Signs
Temp Pulse Resp BP Pulse Ox
98.3 F 67 20 141/86 99
11/24/24 14:24 11/24/24 15:00 11/24/24 14:24 11/24/24 14:27 11/24/24 14:24
Cardiovascular:: Regular rate and rhythm
Respiratory:: Bilateral: Coarse and Bilateral: Rales (At bases)
Lung Excursion:: Normal
Abdomen:: Nontender and Soft
Bowel Sounds:: Normal
Extremity Edema:: +2: Bilateral:
Rey Catheter: No
[2024-11-24] MEDS: REFRESH CELLUVISC GEL BOTH EYES ×3 (17:04→20:10)
[2024-11-24] MEDS: SYMBICORT 160/4.5 MCG INHALER INH (21:13)
[2024-11-24] MEDS: ZOLOFT 25 MG PO (23:08)
[2024-11-25] VITALS (16 sets, daily range): BP systolic 131–173; BP diastolic 61–88; PULSE 67; O2SAT 96; BMI 25.4
[2024-11-25 04:04] LABS: % Monocytes 3.6 % (1.7-9.3); % Neutrophils 87.4 % (42.2-75.2); Absolute Immature Granulocytes 0.1 10^3/uL (0-0.05); Absolute Lymphocytes 0.9 10^3/uL (1.2-3.4); Absolute Monocytes 0.4 10^3/uL (0.1-0.6); Absolute Neutrophils 10.1 10^3/uL (1.4-6.5); Hematocrit 33.2 % (39.0-52.0); Hemoglobin 10.3 g/dL (13.0-18.0); Mean Corpuscular Hgb 26.1 pg (27.0-31.0); Mean Corpuscular Volume 84.1 fL (80.0-94.0); Mean Platelet Volume 9.8 fL (7.4-10.4); Nucleated Red Blood Cells % 0 % (-); Platelet Count 186 10^3/uL (130-400); Red Blood Cell Count 3.95 10^6/uL (4.70-6.10); Red Cell Dist. Width 17.4 % (11.5-14.5); White Blood Cell Count 11.6 10^3/uL (4.8-10.8)
[2024-11-25 04:28] LABS: Blood Urea Nitrogen 59 mg/dl (9-20); Calcium 7.9 mg/dl (8.4-10.2); Chloride 94 mmol/L (98-107); Estimated Creatinine Clearance 55 ml/min; Glucose 149 mg/dl (70-99); Potassium 4.8 mmol/L (3.5-5.1); Sodium 134 mmol/L (135-145); eGFR > 60.00
[2024-11-25 04:37] LABS: Troponin I 0.029 ng/ml
[2024-11-25 04:42] LABS: Carbon Dioxide 34 mmol/L (22-30)
[2024-11-25] MEDS: REFRESH CELLUVISC GEL 1 DROPS BOTH EYES ×2 (07:31→15:27)
[2024-11-25] MEDS: NORVASC 5 MG PO (07:31)
[2024-11-25] MEDS: APRESOLINE 25 MG PO ×2 (07:31→19:36)
[2024-11-25] MEDS: PROTONIX 40 MG PO (07:31)
[2024-11-25] MEDS: COREG 12.5 MG PO ×2 (07:31→19:36)
[2024-11-25] MEDS: FARXIGA 10 MG PO (07:31)
[2024-11-25] MEDS: ALDACTONE 12.5 MG PO (07:32)
[2024-11-25] MEDS: SOLU-MEDROL PF 40 MG IV (07:32)
[2024-11-25] MEDS: FLUSH (NSS) 1 FLUSH IV (07:40)
[2024-11-25] MEDS: SYMBICORT 160/4.5 MCG INHALER 2 PUFF INH ×2 (08:33→20:09)
[2024-11-25] MEDS: SPIRIVA RESPIMAT 2.5 MCG 2 PUFF INH (08:33)
--- NOTE | 2024-11-25 08:50 | W.PN.PUL3 ---
Today's Communication / Plan
-
Doing well with diuresis, cath results reviewed/wedge elevated
CXR repeat improving (less so ILD), stop IV steroids
Wean O2 as tolerated, home O2 eval
Needs further w/u as OP with CT chest to establish (post diuresis and at dry weight) if there is any remaining interstitial disease
Encouraged OOB/PT
Further cardiac management per team
Outpatient FU recommended
PT eval for d/c planning
Assessment
-
84-year-old M with PMHx ofg HLD, HTN and COPD who p/w worsening LE edema and SOB. 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 Pt has had worsening LE edema as well as his hands/wrists since he was recently discharged here on 11/05/2024. Alos
having increasing weight. He had been reportedly compliant with his sodium and fluid restriction. In the ER he was afebrile to 98.5F, HR 75, RR 20, BP 141/71, and SpO2 93% on 3L/min. Initial labs with WBC 9.8, Hb 11.1, Cr 1.4, troponin 0.042, BNP
3890, and albumin 1.8. Initial CXR showed prominent interstitial markings with fluid seen along the minor fissure, with moderate bilateral apical scarring. Given lasix 80mg IV in the ER. Was admitted to tele and then TRX to IVU on 11/18/2024 for
further. Pulmonary now consulted given his continued SOB and hypoxia despite being diuresed.
Chronic conditions SHELTER MONITOR: Hypercholesterolemia, hypertension, CKD, PAD, GERD, anemia, chronic HFpEF
Impression:
#Acute respiratory failure with hypoxia on supplemental oxygen likely combination of ADH in setting of COPD, suspected ILD and hypoalbuminemia
#Acute decompensated heart failure
#Moderate COPD with borderline significant bronchodilator response, with mild�moderate restrictive lung defect (per PFT from 10/18/2024)
#Moderately reduced gas exchange capacity which is only borderline reduced when accounting for alveolar volume involved in gas exchange (DLco: 42%, DLco/VA: 73% per PFT from 10/18/2024)
#Hypoalbuminemia
#Chronic anemia
#Hyperglycemia
#Elevated troponin (0.042 on 11/14/2024)
#CKD with albuminuria
#Former tobacco smoker ([id number] history, quit smoking in the ) with centrilobular/paraseptal emphysema seen on CT chest from 11/01/2024
Plan:
Currently on 2L NC satting 95%
Home O2 eval
Pt was being Tx with aggressive diuresis for suspected heart failure with lasix 80mg IV BID --> DC'd on 11/23/2023
RHC (11/25) reviewed with elevated wedge
Monitor I/O and trend UOP
Trend BNP
Continue IV diuresis per team
CXR reviewed, given drastic improvement, this is less likely ILD
Repeat CXR showing significant change
Would repeat CT chest as OP once dry weight is established and wedge negative
Stop IV steroids, not wheezing on exam
Rheumatological panel checked AM of 11/21/2024 before steroids were started -RF is elevated at 128 IU and his SS-A Ab levels are elevated; HP-panel pending
Urine protein/Cr is 16; nephrology on board and recs appreciated
Further OP w/u is warranted
Maintain SpO2 88-95% with supplemental O2 and wean down as tolerated
Antitussants prn
On trelegy as an outpatient --> continue Symbicort and spiriva. Rinse mouth after symbicort to avoid thrush
Changed prn DuoNebs to albuterol as he is already on spiriva
- Trend troponin until begins to downtrend
- Incentive spirometer q1hr while awake
- Replete electrolytes with K>4, Mg>2
- Maintain euglycemia with goal BG >100 and <180
- Transfuse if needed to keep Hb>7-8g/dL
- DVT ppx: HSQ
Pulmonary service will continue to follow along.
Continue follow up with us in the office as last visit was on 10/18/[address] Larson.
Data:
CXR 11/20/2024: Progression of bilateral interstitial and alveolar opacification in comparison to recent prior study for which acute inflammatory/infectious etiology would be most likely with possible underlying chronic interstitial changes. Small
right pleural effusion, increased.
ECHO 10/21/24- Normal left ventricular systolic function. Normal left ventricular systolic function. Normal regional wall motion. Mild concentric left ventricular hypertrophy. Left ventricular ejection fraction is 60-65% by volumetric assessment.
Stage III diastolic dysfunction suggestive of restrictive filling pattern and increased filling pressures. Normal right ventricular size and function.
Moderately dilated atria. Mild mitral annular calcification. Moderate mitral regurgitation. Mild tricuspid regurgitation. Estimated pulmonary artery pressure of 52 mmHg assuming a right atrial pressure of 3 mmHg. No pericardial effusion.
Ascending aorta is top normal at 3.7 cm. No prior study for comparison.
LHC/RHC 11/25/24- Hemodynamics (mmHg):
RA (m) : 15
RV (s/d,m) : 47/8, 18
PA (s/d, m) : 46/21, 33
PCWP (m) : 23 with V waves to 38
AO: 158/77, 110
Cardiac Output : 5.5 L/min and Cardiac Index : 2.9 L/min/m-2
Systemic vascular resistance: 17.3 Wood units or 1382 [id number]-yx(-5)
Pulmonary vascular resistance: 1.8 Wood units or 145 [id number](-5)
-----
Total time spent today was 50 minutes for this encounter. Time includes reviewing laboratory test/imaging results, reviewing pertinent medical records, obtaining and reviewing medical history, performing an appropriate exam, ordering medications,
tests and procedures. Time also includes documentation of this encounter, coordinating patient care and communicating with other healthcare professionals. Total time does not include separately billed tests performed on this date of service.
Subjective Data
-
Date of Service:
Date of Service: November 25, 2024
Chief Complaint: Pulmonary Follow Up
Subjective:
Doing well today, post cath
Remains on 2L NC
Objective Data
Data Reviewed
Vital Signs / I&O / Oxygen:
Vital Signs
Temp Pulse Resp BP Pulse Ox
98.3 F 67 18 157/82 95
11/25/24 07:03 11/25/24 08:36 11/25/24 08:36 11/25/24 03:55 11/25/24 08:36
Intake and Output
11/24/24 11/25/24 11/26/24
06:59 06:59 06:59
Intake Total 240 / 240 750 / 750
Output Total 1300 / 1300 850 / 850
Balance -1060 / -1060 -100 / -100
SaO2 95
Nasal Cannula flow liters per 2
minute
Physical Exam
General: Respiratory Distress (negative), Comfortable, Chills (negative) and Sweats (negative)
HEENT: Normocephalic and Anicteric
Cardiovascular: S1-S2, Murmur (CHRISSY heard diffusely (grade III/)), Rub (negative) and Peripheral Edema (negative)
Respiratory: Wheeze (negative), Crackles (bilaterally mainly in the bases), Rhonchi (negative), Non-Labored Respirations and Stridor (negative)
GI: Soft, Non Distended, Non Tender and Normal Bowel Sounds
Neurology: AO x 3 and Tremors (negative)
Skin: Warm, Dry, Cyanosis (negative) and Jaundice (negative)
Labs/Micro/Reports
Lab Data
11/25/24 03:43
11/25/24 03:43
[2024-11-25] MEDS: HEPARIN 5000 UNITS SC ×2 (09:27→15:26)
[2024-11-25] MEDS: MIRALAX PO (10:30)
--- NOTE | 2024-11-25 11:08 | ITS.CL.CATH ---
Backup [facility]yer - Catheterization
Cardiac Catheterization
Procedure Report:
RIGHT HEART CATHETERIZATION
Date of Procedure: November 25, 2024
Referring: Dr. Ervin Elizondo
INDICATION: Peripheral edema and nephrotic range proteinuria and elevated rheumatologic serologies
Hemodynamics (mmHg):
RA (m) : 15
RV (s/d,m) : 47/8, 18
PA (s/d, m) : 46/21, 33
PCWP (m) : 23 with V waves to 38
AO: 158/77, 110
Cardiac Output : 5.5 L/min and Cardiac Index : 2.9 L/min/m-2
Systemic vascular resistance: 17.3 Wood units or 1382 [id number]-jl(-5)
Pulmonary vascular resistance: 1.8 Wood units or 145 ryrjl-[id number]-lm(-5)
RADIATION SUMMARY: Fluoro Time (min): 4.5, Dose (mGy): 12.7, DAP (Gy.cm2) : 2.1
CONCLUSION:
1. Mildly elevated right and left ventricular filling pressures
2. Systemic hypertension
Copy to: Dr. Ervin Elizondo
--- NOTE | 2024-11-25 12:50 | W.PN.CARDCBS ---
Today's Communication / Plan
-
Right heart cath with evidence of CHF
Discussed with nephrology who will manage diuretics
Impression / Plan
-
Primary Senior Product Manager: Dr. Elizondo
He had admission 10/31-11/05 for new CHF. then returned to due to recurrent weight gain, lower extremity edema, MUNOZ despite escalating OP diuretic therapy.
Impression:
Presentation 11/14/2024 with recurrent weight gain, LE edema, MUNOZ
Acute HFpEF, proBNP, proBNP 3890
Abnormal troponin, suspect nonischemic myocardial injury secondary to acute heart failure exacerbation
Admission to 10/31-11/05/24 for new HFpEF
Atrial tachycardia
Moderate MR
CKD
PAD, abnormal L IVAN, mod to severe claudication
HTN
HLD
GERD
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
Hernia
Anemia
Hypoalbuminemia
ECHO 10/21/24: EF 60 to 65%, mild concentric LVH, stage III diastolic dysfunction, moderately dilated atria, mild MAC, moderate MR, mild TR, PAP 52 mmHg, ascending aorta top normal at 3.7 cm
Right heart catheterization 11/25/2024: RA 15, RV 47/8, PA 46/21, wedge 23 with V waves to 38, cardiac index 2.9
Plan:
Right heart catheterization on 11/30 with evidence of CHF.
Discussed with nephrology who will manage diuretics
cont carvedilol 12.5 mg twice daily, Farxiga 10 mg daily, Aldactone 12.5 mg daily
Given CHF cilostazol stopped
Eventual renal biopsy for proteinuria
COPD as well as suspected underlying interstitial lung disease. There is concern for Systemic Autoimmune Rheumatologic Disease (SARD) associated with interstitial lung disease. Elevated rheumatoid factor and SS�A antibody level
Pulmonary is following closely and steroids have been initiated
Progress Note - Senior Product Manager
Subjective
Date of Service: November 25, 2024
No complaints
Objective
Labs:
11/25/24 03:43
11/25/24 03:43
Labs
Hgb 10.3 g/dL (13.0-18.0) L 11/25/24 03:43
Hct 33.2 % (39.0-52.0) L 11/25/24 03:43
Plt Count 186 10^3/uL (130-400) 11/25/24 03:43
Sodium 134 mmol/L (135-145) L 11/25/24 03:43
Potassium 4.8 mmol/L (3.5-5.1) 11/25/24 03:43
BUN 59 mg/dl (9-20) H 11/25/24 03:43
Creatinine 1.0 mg/dL (0.7-1.3) 11/25/24 03:43
Glucose 149 mg/dl (70-99) H 11/25/24 03:43
Troponins
11/25/24
03:43
Troponin I 0.029
Vital Signs and I&O:
Vital Signs
Temp Pulse Resp BP Pulse Ox
97.7 F 67 18 153/80 91
11/25/24 11:11 11/25/24 08:36 11/25/24 11:11 11/25/24 07:01 11/25/24 11:11
Vital Signs
Temp Pulse Resp BP Pulse Ox
97.7 F 67 18 153/80 91
11/25/24 11:11 11/25/24 08:36 11/25/24 11:11 11/25/24 07:01 11/25/24 11:11
Intake & Output
11/23/24 11/24/24 11/25/24 11/26/24
06:59 06:59 06:59 06:59
Intake Total 720 / 720 240 / 240 750 / 750
Output Total 1925 / 1925 1300 / 1300 850 / 850
Balance -1205 / -1205 -1060 / -1060 -100 / -100
Physical Exam
Physical Exam
General: Well developed, well nourished in NAD.
Neck: Supple, no JVD, HJR, carotids +2 B/L, no bruits bilaterally.
Heart: Non displaced PMI, RRR, no murmurs, No S3, S4, no rubs.
Lungs: sccatered rhonchi
Extremities: No clubbing, cyanosis or edema bilaterally.
Neuro: Grossly nonfocal, awake, alert and oriented x3.
--- NOTE | 2024-11-25 14:34 | PTCARENOTE ---
Pt returned post cath at 1120. Right groin site soft with dressing dry and intact. Right brachial dressing dry and intact. Bedrest maintained as ordered. Pt with no c/o.
--- NOTE | 2024-11-25 14:59 | W.PN.HOSP.TC ---
Addendum entered and electronically signed by Luis Enrique Leach MD 11/25/24 15:55:
Acute on chronic hypoxemic respiratory failure (patient is on home O2 at 2 L)
Original Note:
Today's Communication/Plan
-
Consider additional IV diuresis
Steroid taper for
Attempt to wean off oxygen to baseline of 2 L
Physical therapy evaluation
Will require complex follow-up as outpatient including pulmonology/nephrology, outpatient rheumatology evaluation.
Follow-up chest x-ray today in response to treatment to IV diuresis and systemic steroids.
Assessment / Plan
Assessment / Plan
Impression:
Presentation with worsening of shortness of breath, weight gain, worsening of lower extremity edema
Acute hypoxic respiratory failure
Acute CHF preserved EF exacerbation.
Other conditions:
Chronic hypoxic respiratory failure on home O2 at 2 L intermittently.
Chronic CHF preserved EF
-ECHO 10/21/24: EF 60 to 65%, mild concentric LVH, stage III diastolic dysfunction, moderately dilated atria, mild MAC, moderate MR, mild TR, PAP 52 mmHg, ascending aorta top normal at 3.7 cm
Moderate MR
Pulmonary hypertension
CKD stage IIIb baseline creatinine 1.3.
PAD with abnormal left IVAN/moderate to severe claudication on Pletal VIDEO PRODUCER.
Essential hypertension
Dyslipidemia.
GERD.
COPD.
Chronic anemia
Hypoalbuminemia.
Plan:
Acute hypoxic respiratory failure likely multifactorial due to CHF/volume overload as well as interstitial lung disease.
Acute CHF exacerbation
Echo as above.
IV diuresis with Lasix 60 mg IV twice daily-->Cardiology stopping diuretics today and plan for right heart cath tomorrow.
Chest x-ray with worsening bilateral diffuse infiltrates.
Noted elevated inflammatory markers including ESR and CRP.
ILD positive for rheumatoid factor at 128 IU and SS-A/R0S2 KDA antibody suggestive of ILD? Lupus including lupus nephritis?
Right heart cath 11/25 with evidence of volume overload
With interstitial lung process, nephrotic range proteinuria concern for nephrotic/nephritic syndrome, there is a reasonable concern for systemic process
Patient is too deconditioned to consider renal biopsy
Continue IV steroid taper as per pulmonology
Will require additional diuresis
Hold Pletal acutely
Continue Coreg 12.5 mg p.o. twice a day
CKD 3
Monitor renal function with diuresis closely
Nephrotic range proteinuria
Nephrology on board and concerns for minimal-change versus membranous nephropathy
Anemia of chronic disease
Recent studies consistent with mixed picture of anemia of CKD and mild iron deficiency.
Will need GI evaluation as outpatient once cardiovascular status is optimized.
Check EPO level
IV iron.
Essential hypertension
Continue hydralazine, Coreg. Hold losartan. Resume Norvasc.
GERD
On PPI
Full code.
DVT prophylaxis with heparin.
Time spent 54 minutes
Anticipated Discharge: 24 - 48 hours
Subjective/Interval History
-
Date of Service: November 25, 2024
Objective Data
-
Labs:
Laboratory Results
11/25/24
03:43
WBC 11.6 H
Hgb 10.3 L
Hct 33.2 L
Plt Count 186
Sodium 134 L
Potassium 4.8
Chloride 94 L
Carbon Dioxide 34 H
BUN 59 H
Creatinine 1.0
Glucose 149 H
Calcium 7.9 L
Vital Signs:
Vital Signs
Temp Pulse Resp BP Pulse Ox
97.7 F 67 18 153/80 91
11/25/24 11:11 11/25/24 08:36 11/25/24 11:11 11/25/24 07:01 11/25/24 11:11
I&O
11/24/24 11/25/24 11/26/24
06:59 06:59 06:59
Intake Total 240 / 240 750 / 750
Output Total 1300 / 1300 850 / 850
Balance -1060 / -1060 -100 / -100
Physical Exam
-
General: Well Developed and No Apparent Distress
HEENT: Normocephalic, Atraumatic and Moist Mucous Membranes
Respiratory: Rales
Cardiac: Regular Rhythm, S1/S2, Murmur and JVD; Negative Rub or Gallop
GI: Soft, Nontender, Nondistended and Normal Bowel Sounds; Negative Organomegaly
Rectal: Deferred by Provider
Musculoskeletal: No Clubbing, No Cyanosis and No Edema
Skin: Negative Rash
Neuro: Awake, Alert, Oriented and Nonfocal/Grossly Intact
--- NOTE | 2024-11-25 15:05 | W.PN.NEPH.PH ---
Today's Communication / Plan
-
Bumex
Assessment/Plan
-
Impression:
Nephrotic range proteinuria/hypoalbuminemia
Microhematuria
Decompensated congestive heart failure
Metabolic alkalosis
COPD/ILD
CKD (1.1): Renal ultrasound notes bilateral renal cysts no hydronephrosis normal size kidneys)
Plan:
Check 24-hour urine for protein and creatinine
Serologic workup has been unremarkable and does not explain his proteinuria.
At this point the only possible way of obtaining a diagnosis would be kidney biopsy
I discussed this at great length with the family including his son who is a MANUFACTURING FINANCE MANAGER. A biopsy has a potential to offer diagnosis but may also show scarring or insufficient tissue. This would also add some additional risk of the biopsy including
bleeding.
Empiric treatment for nephrotic syndrome would ultimately include high-dose steroids or immunosuppressive therapy which I will be cautious with given his significant lung disease. I would be hesitant to do this without a diagnosis.
Also given his age as well as the fact that his creatinine is 1.0, he may still maintain sufficient kidney function over time despite the nephrotic syndrome.
If we are able to control his edema as well as other consequences of nephrotic syndrome he may be able to return to a better quality of life which may be more important
We agreed to try diuretic therapy at this time and to hold off on kidney biopsy.
Bumex 3 mg today, then 2 mg twice daily
Check TSH and vitamin D levels
-
-
Date of Service: November 25, 2024
CC / HPI / ROS
-
Chief Complaint:
Nephrotic range proteinuria
History of Present Illness:
Creatinine unchanged at 1.0
Hemodynamically stable
Status post right heart cath, wedge 23
WBC improving to 11.6
Review of Systems:
Subjectively nonoliguric
No chest pain or shortness of breath
Labs
-
Labs:
WBC 11.6 10^3/uL (4.8-10.8) H 11/25/24 03:43
RBC 3.95 10^6/uL (4.70-6.10) L 11/25/24 03:43
Hgb 10.3 g/dL (13.0-18.0) L 11/25/24 03:43
Hct 33.2 % (39.0-52.0) L 11/25/24 03:43
Plt Count 186 10^3/uL (130-400) 11/25/24 03:43
Sodium 134 mmol/L (135-145) L 11/25/24 03:43
Potassium 4.8 mmol/L (3.5-5.1) 11/25/24 03:43
Chloride 94 mmol/L (98-107) L 11/25/24 03:43
Carbon Dioxide 34 mmol/L (22-30) H 11/25/24 03:43
BUN 59 mg/dl (9-20) H 11/25/24 03:43
Creatinine 1.0 mg/dL (0.7-1.3) 11/25/24 03:43
eGFR > 60.00 11/25/24 03:43
Glucose 149 mg/dl (70-99) H 11/25/24 03:43
Calcium 7.9 mg/dl (8.4-10.2) L 11/25/24 03:43
Ypr-V-Fedzmqqnrrd Pept 6090 pg/ml 11/21/24 01:47
Albumin 2.2 g/dl (3.5-5.0) L 11/20/24 10:25
Physical Exam
-
Vital Signs:
Vital Signs
Temp Pulse Resp BP Pulse Ox
97.7 F 67 18 153/80 91
11/25/24 11:11 11/25/24 08:36 11/25/24 11:11 11/25/24 07:01 11/25/24 11:11
Cardiovascular:: Regular rate and rhythm
Respiratory:: Bilateral: Coarse
Lung Excursion:: Normal
Abdomen:: Nontender and Soft
Bowel Sounds:: Normal
Extremity Edema:: +2: Bilateral:
[2024-11-25] MEDS: BUMEX 3 MG PO (15:26)
--- NOTE | 2024-11-25 16:35 | CM ---
dc plans remain home with [facility] when medically stable.
[2024-11-25] MEDS: REFRESH CELLUVISC GEL BOTH EYES (19:36)
--- NOTE | 2024-11-25 20:52 | PTCARENOTE ---
Addendum entered by Jonatan Ruiz RN 11/25/24 20:57:
improved blood pressure- 140/68. HR 60s.
Original Note:
assumed care of patient at the change of shift. AAOx3. [place]. resting in the chair. independent in the room. R groin site and R brachial sites intact. + pulses. patient states feeling good. 93% on RA. SR on tele 60s. bp elevated. scheduled medications
given. patient denies any pain/sob. educated patient to inform RN with any changes overnight. call loyola within reach.
[2024-11-26] VITALS (7 sets, daily range): BP systolic 131–148; BP diastolic 59–77; BMI 25.4
[2024-11-26 05:01] LABS: Hematocrit 33.6 % (39.0-52.0); Hemoglobin 10.3 g/dL (13.0-18.0); Mean Corp Hgb Conc. 30.7 g/dL (33.0-37.0); Mean Corpuscular Hgb 25.6 pg (27.0-31.0); Mean Corpuscular Volume 83.4 fL (80.0-94.0); Mean Platelet Volume 9.8 fL (7.4-10.4); Platelet Count 189 10^3/uL (130-400); Red Blood Cell Count 4.03 10^6/uL (4.70-6.10); Red Cell Dist. Width 17.6 % (11.5-14.5); White Blood Cell Count 10.9 10^3/uL (4.8-10.8)
[2024-11-26 05:26] LABS: Blood Urea Nitrogen 58 mg/dl (9-20); Calcium 7.5 mg/dl (8.4-10.2); Carbon Dioxide 39 mmol/L (22-30); Chloride 96 mmol/L (98-107); Estimated Creatinine Clearance 46 ml/min; Glucose 94 mg/dl (70-99); Potassium 4.2 mmol/L (3.5-5.1); Sodium 136 mmol/L (135-145); eGFR > 60.00
[2024-11-26 05:38] LABS: Vitamin D, 25-OH*** < 12.8 ng/mL (30-80)
[2024-11-26 05:51] LABS: TSH Reflex To Free T4 0.78 uIU/ml (0.47-4.68)
[2024-11-26] MEDS: SPIRIVA RESPIMAT 2.5 MCG 2 PUFF INH (07:21)
[2024-11-26] MEDS: SYMBICORT 160/4.5 MCG INHALER 2 PUFF INH ×2 (07:21→20:19)
[2024-11-26] MEDS: APRESOLINE 25 MG PO ×2 (08:43→20:20)
[2024-11-26] MEDS: NORVASC 5 MG PO (08:43)
[2024-11-26] MEDS: BUMEX 2 MG PO ×2 (08:43→16:33)
[2024-11-26] MEDS: PROTONIX 40 MG PO (08:43)
[2024-11-26] MEDS: REFRESH CELLUVISC GEL 1 DROPS BOTH EYES (08:43)
[2024-11-26] MEDS: COREG 12.5 MG PO ×2 (08:44→20:20)
[2024-11-26] MEDS: ALDACTONE 12.5 MG PO (08:44)
[2024-11-26] MEDS: HEPARIN 5000 UNITS SC ×4 (08:44→23:00)
[2024-11-26] MEDS: FARXIGA 10 MG PO (08:44)
[2024-11-26] MEDS: MIRALAX PO (08:46)
--- NOTE | 2024-11-26 08:57 | W.PN.CARDCBS ---
Addendum entered and electronically signed by Tao Kwok MD 11/26/24 15:42:
I saw and examined the patient.
The Director Of Archives's note was reviewed and I agree with the note.
Comment: Briefly, 84-year-old man presenting in decompensated heart failure found to have proteinuria concerning for nephrotic syndrome
Volume status is significantly improved with IV diuresis, has been transitioned to p.o. Bumex/metolazone, appreciate nephrology input
Continues on SGLT2 and MRA given diagnosis of heart failure with preserved ejection fraction
Blood pressure is well-controlled with Coreg, Norvasc and hydralazine�would continue
Outpatient follow-up has been arranged
Original Note:
Today's Communication / Plan
-
improving
continue po diuretics per nephrology
continue antiHTN regimen
OP cardiac follow up arranged
Impression / Plan
-
Primary Tool Engineer: Dr. Elizondo
He had admission 10/31-11/05 for new CHF. then returned to due to recurrent weight gain, lower extremity edema, MUNOZ despite escalating OP diuretic therapy.
Impression:
Presentation 11/14/2024 with recurrent weight gain, LE edema, MUNOZ
Acute HFpEF, proBNP, proBNP 3890
Abnormal troponin, suspect nonischemic myocardial injury secondary to acute heart failure exacerbation
Admission to 10/31-11/05/24 for new HFpEF
Atrial tachycardia
Moderate MR
CKD
PAD, abnormal L IVAN, mod to severe claudication
HTN
HLD
GERD
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
Hernia
Anemia
Hypoalbuminemia
ECHO 10/21/24: EF 60 to 65%, mild concentric LVH, stage III diastolic dysfunction, moderately dilated atria, mild MAC, moderate MR, mild TR, PAP 52 mmHg, ascending aorta top normal at 3.7 cm
Right heart catheterization 11/25/2024: RA 15, RV 47/8, PA 46/21, wedge 23 with V waves to 38, cardiac index 2.9
Plan:
-RHC 11/25 with continue evidence of CHF. currently on bumex 2mg po BID per nephrology. Cr stable at 1.2.
-improving. off supp O2
-diagnosed with nephrotic syndrome, concern for minimal-change versus membranous nephropathy. no plans for renal biopsy at this time
-continue coreg 12.5mg BID, farxiga 10mg daily, aldactone 12.5mg daily, Norvasc 5 mg daily, hydralazine 25mg BID.
-Given CHF cilostazol stopped
-COPD as well as suspected underlying interstitial lung disease. There is concern for Systemic Autoimmune Rheumatologic Disease (SARD) associated with interstitial lung disease. Elevated rheumatoid factor and SS�A antibody level. Pulmonary is
following and did receive steroids this admission
-he was noted to be anemic with abnormal iron studies and is receiving iron repletion.
-OP cardiac follow up arranged. DC planning
-d/w patient's son, Christiano.
Progress Note - Tool Engineer
Subjective
Date of Service: November 26, 2024
Reports feeling breathing is improved. Continues with good urine output.
Objective
Labs:
11/26/24 04:37
11/26/24 04:30
Labs
Hgb 10.3 g/dL (13.0-18.0) L 11/26/24 04:37
Hct 33.6 % (39.0-52.0) L 11/26/24 04:37
Plt Count 189 10^3/uL (130-400) 11/26/24 04:37
Sodium 136 mmol/L (135-145) 11/26/24 04:30
Potassium 4.2 mmol/L (3.5-5.1) 11/26/24 04:30
BUN 58 mg/dl (9-20) H 11/26/24 04:30
Creatinine 1.2 mg/dL (0.7-1.3) 11/26/24 04:30
Glucose 94 mg/dl (70-99) 11/26/24 04:30
Troponins
11/25/24
03:43
Troponin I 0.029
Vital Signs and I&O:
Vital Signs
Temp Pulse Resp BP Pulse Ox
97.7 F 57 16 141/77 92
11/26/24 04:21 11/26/24 07:26 11/26/24 07:26 11/26/24 04:21 11/26/24 04:21
Vital Signs
Temp Pulse Resp BP Pulse Ox
97.7 F 57 16 141/77 92
11/26/24 04:21 11/26/24 07:26 11/26/24 07:26 11/26/24 04:21 11/26/24 04:21
Intake & Output
11/24/24 11/25/24 11/26/24 11/27/24
07:59 07:59 07:59 07:59
Intake Total 240 / 360 750 / 750
Output Total 1100 / 1100 850 / 850 1700 / 1700 150 / 150
Balance -860 / -740 -100 / -100 -1700 / -1700 -150 / -150
Physical Exam
Physical Exam
GEN: No distress, awake, alert, oriented x3. sitting in chair
HEENT: supple, anicteric, mmm, eomi
LUNGS: Scattered rhonchi B/L, no wheezes
CV: Reg, S1/S2, no murmur
ABD: soft, BS+, NT/ND
EXT: No cyanosis, clubbing. 3+ edema of B/L LE
NEURO: Gross non-focal
SKIN: Warm, pink, dry. No rash
--- NOTE | 2024-11-26 09:31 | W.PN.PUL3 ---
Today's Communication / Plan
-
Doing well today, stable on RA--home O2 eval
Continued on IV diuresis per team per cath results
Resumed on home inhalers, no indication for IV steroids
Encourage OOB/PT/OT
Pulm OP FU at discharge
No further recs, we will sign off at this time--please call with questions
Assessment
-
84-year-old M with PMHx ofg HLD, HTN and COPD who p/w worsening LE edema and SOB. 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 Pt has had worsening LE edema as well as his hands/wrists since he was recently discharged here on 11/05/2024. Alos
having increasing weight. He had been reportedly compliant with his sodium and fluid restriction. In the ER he was afebrile to 98.5F, HR 75, RR 20, BP 141/71, and SpO2 93% on 3L/min. Initial labs with WBC 9.8, Hb 11.1, Cr 1.4, troponin 0.042, BNP
3890, and albumin 1.8. Initial CXR showed prominent interstitial markings with fluid seen along the minor fissure, with moderate bilateral apical scarring. Given lasix 80mg IV in the ER. Was admitted to tele and then TRX to IVU on 11/18/2024 for
further. Pulmonary now consulted given his continued SOB and hypoxia despite being diuresed.
Chronic conditions THROUGH OPERATOR: Hypercholesterolemia, hypertension, CKD, PAD, GERD, anemia, chronic HFpEF
Impression:
#Acute respiratory failure with hypoxia on supplemental oxygen likely combination of ADH in setting of COPD, suspected ILD and hypoalbuminemia
#Acute decompensated heart failure
#Moderate COPD with borderline significant bronchodilator response, with mild�moderate restrictive lung defect (per PFT from 10/18/2024)
#Moderately reduced gas exchange capacity which is only borderline reduced when accounting for alveolar volume involved in gas exchange (DLco: 42%, DLco/VA: 73% per PFT from 10/18/2024)
#Hypoalbuminemia
#Chronic anemia
#Hyperglycemia
#Elevated troponin (0.042 on 11/14/2024)
#CKD with albuminuria
#Former tobacco smoker ([id number] history, quit smoking in the ) with centrilobular/paraseptal emphysema seen on CT chest from 11/01/2024
Plan:
Currently on room air and stable sats >90%
Has history of 2L use at home
Home O2 eval
Pt was being Tx with aggressive diuresis for suspected heart failure with lasix 80mg IV BID --> DC'd on 11/23/2023
RHC (11/25) reviewed with elevated wedge
Monitor I/O and trend UOP
Trend BNP
Continue IV diuresis per team
CXR reviewed, given drastic improvement, this is less likely ILD
Repeat CXR showing significant change
Would repeat CT chest as OP once dry weight is established and wedge negative
Stop IV steroids, not wheezing on exam
Rheumatological panel checked AM of 11/21/2024 before steroids were started -RF is elevated at 128 IU and his SS-A Ab levels are elevated; HP-panel pending
Urine protein/Cr is 16; nephrology on board and recs appreciated
Further OP w/u is warranted
Maintain SpO2 88-95% with supplemental O2 and wean down as tolerated
Antitussants prn
On trelegy as an outpatient --> continue Symbicort and spiriva. Rinse mouth after symbicort to avoid thrush
Changed prn DuoNebs to albuterol as he is already on spiriva
- Trend troponin until begins to downtrend
- Incentive spirometer q1hr while awake
- Replete electrolytes with K>4, Mg>2
- Maintain euglycemia with goal BG >100 and <180
- Transfuse if needed to keep Hb>7-8g/dL
- DVT ppx: HSQ
Pulmonary service will continue to follow along.
Continue follow up with us in the office as last visit was on 10/18/[address] Larson.
Data:
CXR 11/20/2024: Progression of bilateral interstitial and alveolar opacification in comparison to recent prior study for which acute inflammatory/infectious etiology would be most likely with possible underlying chronic interstitial changes. Small
right pleural effusion, increased.
ECHO 10/21/24- Normal left ventricular systolic function. Normal left ventricular systolic function. Normal regional wall motion. Mild concentric left ventricular hypertrophy. Left ventricular ejection fraction is 60-65% by volumetric assessment.
Stage III diastolic dysfunction suggestive of restrictive filling pattern and increased filling pressures. Normal right ventricular size and function.
Moderately dilated atria. Mild mitral annular calcification. Moderate mitral regurgitation. Mild tricuspid regurgitation. Estimated pulmonary artery pressure of 52 mmHg assuming a right atrial pressure of 3 mmHg. No pericardial effusion.
Ascending aorta is top normal at 3.7 cm. No prior study for comparison.
LHC/RHC 11/25/24- Hemodynamics (mmHg):
RA (m) : 15
RV (s/d,m) : 47/8, 18
PA (s/d, m) : 46/21, 33
PCWP (m) : 23 with V waves to 38
AO: 158/77, 110
Cardiac Output : 5.5 L/min and Cardiac Index : 2.9 L/min/m-2
Systemic vascular resistance: 17.3 Wood units or 1382 lctel-syv-lr(-5)
Pulmonary vascular resistance: 1.8 Wood units or 145 tycuv-ilj-hu(-5)
-----
Total time spent today was 35 minutes for this encounter. Time includes reviewing laboratory test/imaging results, reviewing pertinent medical records, obtaining and reviewing medical history, performing an appropriate exam, ordering medications,
tests and procedures. Time also includes documentation of this encounter, coordinating patient care and communicating with other healthcare professionals. Total time does not include separately billed tests performed on this date of service.
Subjective Data
-
Date of Service:
Date of Service: November 26, 2024
Chief Complaint: Pulmonary Follow Up
Subjective:
Doing well today, sitting in chair
On room air, no complaints
Objective Data
Data Reviewed
Vital Signs / I&O / Oxygen:
Vital Signs
Temp Pulse Resp BP Pulse Ox
97.5 F 59 18 141/77 94
11/26/24 08:00 11/26/24 08:00 11/26/24 08:00 11/26/24 04:21 11/26/24 08:00
Intake and Output
11/25/24 11/26/24 11/27/24
06:59 06:59 06:59
Intake Total 750 / 750
Output Total 850 / 850 1700 / 1700 150 / 150
Balance -100 / -100 -1700 / -1700 -150 / -150
SaO2 94
Nasal Cannula flow liters per 2
minute
Physical Exam
General: Respiratory Distress (negative), Comfortable, Chills (negative) and Sweats (negative)
HEENT: Normocephalic and Anicteric
Cardiovascular: S1-S2, Regular Rhythm, Murmur (CHRISSY heard diffusely (grade III/)), Rub (negative) and Peripheral Edema (1+ w/ chronic venous stasis changes)
Respiratory: Wheeze (negative), Crackles (minimal), Rhonchi (negative), Non-Labored Respirations and Stridor (negative)
GI: Soft, Non Distended, Non Tender and Normal Bowel Sounds
Neurology: AO x 3 and Tremors (negative)
Skin: Warm, Dry, Cyanosis (negative) and Jaundice (negative)
Labs/Micro/Reports
Lab Data
11/26/24 04:37
11/26/24 04:30
--- NOTE | 2024-11-26 09:39 | W.PN.NEPH.PH ---
Today's Communication / Plan
-
metolazone
Assessment/Plan
-
Impression:
Nephrotic range proteinuria/hypoalbuminemia
Microhematuria
Decompensated congestive heart failure
Metabolic alkalosis
COPD/ILD
CKD (1.1): Renal ultrasound notes bilateral renal cysts no hydronephrosis normal size kidneys)
Plan:
Check 24-hour urine for protein and creatinine
Serologic workup has been unremarkable and does not explain his proteinuria.
At this point the only possible way of obtaining a diagnosis would be kidney biopsy
I discussed this at great length with the family including his son who is a [employer]. A biopsy has a potential to offer diagnosis but may also show scarring or insufficient tissue. This would also add some additional risk of the biopsy including
bleeding.
Empiric treatment for nephrotic syndrome would ultimately include high-dose steroids or immunosuppressive therapy which I will be cautious with given his significant lung disease. I would be hesitant to do this without a diagnosis.
Also given his age as well as the fact that his creatinine is 1.0, he may still maintain sufficient kidney function over time despite the nephrotic syndrome.
If we are able to control his edema as well as other consequences of nephrotic syndrome he may be able to return to a better quality of life which may be more important
We agreed to try diuretic therapy at this time and to hold off on kidney biopsy.
Bumex 2 mg twice daily
replete vitamin D
metolazone today
follow BMP
-
-
Date of Service: November 26, 2024
CC / HPI / ROS
-
Chief Complaint:
Nephrotic range proteinuria
History of Present Illness:
Creatinine stable at 1.2
Hemodynamically stable
WBC improving to 10.3
Modest diuresis overnight
Review of Systems:
Subjectively nonoliguric
No chest pain or shortness of breath
Labs
-
Labs:
WBC 10.9 10^3/uL (4.8-10.8) H 11/26/24 04:37
RBC 4.03 10^6/uL (4.70-6.10) L 11/26/24 04:37
Hgb 10.3 g/dL (13.0-18.0) L 11/26/24 04:37
Hct 33.6 % (39.0-52.0) L 11/26/24 04:37
Plt Count 189 10^3/uL (130-400) 11/26/24 04:37
Sodium 136 mmol/L (135-145) 11/26/24 04:30
Potassium 4.2 mmol/L (3.5-5.1) 11/26/24 04:30
Chloride 96 mmol/L (98-107) L 11/26/24 04:30
Carbon Dioxide 39 mmol/L (22-30) H 11/26/24 04:30
BUN 58 mg/dl (9-20) H 11/26/24 04:30
Creatinine 1.2 mg/dL (0.7-1.3) 11/26/24 04:30
eGFR > 60.00 11/26/24 04:30
Glucose 94 mg/dl (70-99) 11/26/24 04:30
Calcium 7.5 mg/dl (8.4-10.2) L 11/26/24 04:30
Csb-V-Ufcyfklwpbn Pept 6090 pg/ml 11/21/24 01:47
Albumin 2.2 g/dl (3.5-5.0) L 11/20/24 10:25
Physical Exam
-
Vital Signs:
Vital Signs
Temp Pulse Resp BP Pulse Ox
97.5 F 59 18 141/77 94
11/26/24 08:00 11/26/24 08:00 11/26/24 08:00 11/26/24 04:21 11/26/24 08:00
Cardiovascular:: Regular rate and rhythm
Respiratory:: Bilateral: Coarse
Lung Excursion:: Normal
Abdomen:: Nontender and Soft
Bowel Sounds:: Normal
Extremity Edema:: +3: Bilateral:
[2024-11-26] MEDS: ZAROXOLYN 2.5 MG PO (09:55)
--- NOTE | 2024-11-26 13:46 | W.PN.HOSP.TC ---
Today's Communication/Plan
-
Observe volume status and renal function on metolazone and Bumex
Assessment / Plan
Assessment / Plan
Impression:
Presentation with worsening of shortness of breath, weight gain, worsening of lower extremity edema
Acute hypoxic respiratory failure
Acute CHF preserved EF exacerbation.
Other conditions:
Chronic hypoxic respiratory failure on home O2 at 2 L intermittently.
Chronic CHF preserved EF
-ECHO 10/21/24: EF 60 to 65%, mild concentric LVH, stage III diastolic dysfunction, moderately dilated atria, mild MAC, moderate MR, mild TR, PAP 52 mmHg, ascending aorta top normal at 3.7 cm
Moderate MR
Pulmonary hypertension
CKD stage IIIb baseline creatinine 1.3.
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
Essential hypertension
Dyslipidemia.
GERD.
COPD.
Chronic anemia
Hypoalbuminemia.
Plan:
Acute hypoxic respiratory failure likely multifactorial due to CHF/volume overload as well as interstitial lung disease.
Acute CHF exacerbation
Echo as above.
IV diuresis with Lasix 60 mg IV twice daily-->Cardiology stopping diuretics today and plan for right heart cath tomorrow.
Chest x-ray with worsening bilateral diffuse infiltrates.
Noted elevated inflammatory markers including ESR and CRP.
ILD positive for rheumatoid factor at 128 IU and SS-A/R0S2 KDA antibody suggestive of ILD? Lupus including lupus nephritis?
Right heart cath 11/25 with evidence of volume overload
With interstitial lung process, nephrotic range proteinuria concern for nephrotic/nephritic syndrome, there is a reasonable concern for systemic process
Patient is too deconditioned to consider renal biopsy
Empiric steroids discontinued on 09/25
Initiated on Bumex with no addition of metolazone
Follow-up chest x-ray is 11/25 with improved bilateral interstitial infiltrate.
Hold Pletal acutely
Continue Coreg 12.5 mg p.o. twice a day
CKD 3
Monitor renal function with diuresis closely
Nephrotic range proteinuria
Nephrology on board and concerns for minimal-change versus membranous nephropathy
Anemia of chronic disease
Recent studies consistent with mixed picture of anemia of CKD and mild iron deficiency.
Will need GI evaluation as outpatient once cardiovascular status is optimized.
Check EPO level
IV iron.
Essential hypertension
Continue hydralazine, Coreg. Hold losartan. Resume Norvasc.
GERD
On PPI
Full code.
DVT prophylaxis with heparin.
Time spent 54 minutes
Anticipated Discharge: 24 - 48 hours
Subjective/Interval History
-
Date of Service: November 26, 2024
Objective Data
-
Labs:
Laboratory Results
11/26/24 11/26/24
04:30 04:37
WBC 10.9 H
Hgb 10.3 L
Hct 33.6 L
Plt Count 189
Sodium 136
Potassium 4.2
Chloride 96 L
Carbon Dioxide 39 H
BUN 58 H
Creatinine 1.2
Glucose 94
Calcium 7.5 L
Vital Signs:
Vital Signs
Temp Pulse Resp BP Pulse Ox
98.3 F 59 16 133/61 92
11/26/24 11:00 11/26/24 10:00 11/26/24 11:00 11/26/24 08:10 11/26/24 11:00
I&O
11/25/24 11/26/24 11/27/24
06:59 06:59 06:59
Intake Total 750 / 750
Output Total 850 / 850 1700 / 1700 1075 / 1075
Balance -100 / -100 -1700 / -1700 -1075 / -1075
Physical Exam
-
General: Well Developed and No Apparent Distress
HEENT: Normocephalic, Atraumatic and Moist Mucous Membranes
Respiratory: Rales
Cardiac: Regular Rhythm, S1/S2, Murmur and JVD; Negative Rub or Gallop
GI: Soft, Nontender, Nondistended and Normal Bowel Sounds; Negative Organomegaly
Rectal: Deferred by Provider
Musculoskeletal: No Clubbing, No Cyanosis and No Edema
Skin: Negative Rash
Neuro: Awake, Alert, Oriented and Nonfocal/Grossly Intact
[2024-11-26] MEDS: REFRESH CELLUVISC GEL BOTH EYES ×2 (16:36→21:02)
--- NOTE | 2024-11-26 21:15 | PTCARENOTE ---
Patient received at change of shift resting in the chair. Patient on room air, oxygen saturation 92%. Sinus rhythm on the automotive product engineer with occasional monomorphic PVCs. Patient denies chest pain or difficulty breathing. Patient's only complaint
is intermittent abdominal pain, states it is mild and presently an acceptable/tolerable pain level. Right brachial site with gauze and tegaderm C/D/I, area soft to palpation. Right groin site with gauze and tegaderm C/D/I, area soft to palpation.
Plan of care discussed with patient. Call [facility] within reach. Care ongoing.
[2024-11-26] MEDS: ZOLOFT 25 MG PO ×2 (22:59)
--- NOTE | 2024-11-27 02:08 | DOWNTIME ---
There was a [employer] Client Poker Supervisor Downtime on 11/27/2024 from 0100 to 11/27/2023 at 0205 . Downtime documentation of patient's care, including medication administrations, has been reconciled in the electronic record per guidelines. Refer to the
patient's paper chart under the miscellaneous tab to see printed paper medication records and downtime forms.
[2024-11-27 02:32] VITALS: BP 156/75
[2024-11-27 02:37] VITALS: BMI 24.8
[2024-11-27 03:21] LABS: Blood Urea Nitrogen 58 mg/dl (9-20); Calcium 7.6 mg/dl (8.4-10.2); Chloride 93 mmol/L (98-107); Estimated Creatinine Clearance 46 ml/min; Glucose 106 mg/dl (70-99); Potassium 4.5 mmol/L (3.5-5.1); Sodium 135 mmol/L (135-145); eGFR > 60.00
[2024-11-27 03:33] LABS: Carbon Dioxide 35 mmol/L (22-30)
[2024-11-27] MEDS: SYMBICORT 160/4.5 MCG INHALER 2 PUFF INH (07:22)
[2024-11-27] MEDS: SPIRIVA RESPIMAT 2.5 MCG 2 PUFF INH (07:22)
[2024-11-27 07:28] LABS: Aspergillus fumigatus #1 Ab None Detected (None Detected); Aspergillus fumigatus #6 Ab None Detected (None Detected); Aureobasidium pullulans Ab None Detected (None Detected); Micropolyspora faeni Ab None Detected (None Detected); Pigeon Serum Ab None Detected (None Detected)
[2024-11-27 08:10] VITALS: BP 120/69
[2024-11-27] MEDS: BUMEX 2 MG PO (09:42)
[2024-11-27] MEDS: MIRALAX 17 GRAMS PO (09:42)
[2024-11-27] MEDS: VITAMIN D3 (cholecalciferol) 50 MCG PO (09:42)
[2024-11-27] MEDS: APRESOLINE 25 MG PO (09:42)
[2024-11-27] MEDS: FARXIGA 10 MG PO (09:42)
[2024-11-27] MEDS: HEPARIN 5000 UNITS SC (09:43)
[2024-11-27] MEDS: COREG 12.5 MG PO (09:43)
[2024-11-27] MEDS: REFRESH CELLUVISC GEL 1 DROPS BOTH EYES (09:43)
[2024-11-27] MEDS: PROTONIX 40 MG PO (09:43)
[2024-11-27] MEDS: ALDACTONE 12.5 MG PO (09:43)
[2024-11-27] MEDS: NORVASC 5 MG PO (09:44)
--- NOTE | 2024-11-27 09:45 | W.PN.CARDCBS ---
Addendum entered and electronically signed by Tao Kwok MD 11/27/24 09:59:
I saw and examined the patient.
The Quarry Boss's note was reviewed and I agree with the note.
Comment: Briefly, 84-year-old man presenting in decompensated heart failure found to have proteinuria concerning for nephrotic syndrome
Volume status is significantly improved with IV diuresis, has been transitioned to p.o. Bumex/metolazone, appreciate nephrology input
Continues on SGLT2 and MRA given diagnosis of heart failure with preserved ejection fraction
Blood pressure is well-controlled with Coreg, Norvasc and hydralazine�would continue
Outpatient follow-up has been arranged
We will sign off, please recall as needed
Original Note:
Today's Communication / Plan
-
continue diuresis per nephrology
continue coreg 12.5mg BID, farxiga 10mg daily, aldactone 12.5mg daily, Norvasc 5 mg daily, hydralazine 25mg BID.
cilostazol stopped
OP cardiac follow up arranged
Impression / Plan
-
Primary Java Flex Developer: Dr. Elizondo
He had admission 10/31-11/05 for new CHF. then returned to due to recurrent weight gain, lower extremity edema, MUNOZ despite escalating OP diuretic therapy.
Impression:
Presentation 11/14/2024 with recurrent weight gain, LE edema, MUNOZ
Acute HFpEF, proBNP, proBNP 3890
Abnormal troponin, suspect nonischemic myocardial injury secondary to acute heart failure exacerbation
Admission to 10/31-11/05/24 for new HFpEF
Atrial tachycardia
Moderate MR
CKD
PAD, abnormal L IVAN, mod to severe claudication
HTN
HLD
GERD
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
Hernia
Anemia
Hypoalbuminemia
ECHO 10/21/24: EF 60 to 65%, mild concentric LVH, stage III diastolic dysfunction, moderately dilated atria, mild MAC, moderate MR, mild TR, PAP 52 mmHg, ascending aorta top normal at 3.7 cm
Right heart catheterization 11/25/2024: RA 15, RV 47/8, PA 46/21, wedge 23 with V waves to 38, cardiac index 2.9
Plan:
-diagnosed with nephrotic syndrome, concern for minimal-change versus membranous nephropathy. serologic work up unremarkable. no plans for renal biopsy at this time as felt to be high risk
-RHC 11/25 with continued evidence of CHF. nephrology managing diuretics - currently on 2mg po bumex BID and was given 2.5mg zaroxolyn 11/26 with good response.
-continue coreg 12.5mg BID, farxiga 10mg daily, aldactone 12.5mg daily, Norvasc 5 mg daily, hydralazine 25mg BID.
-Given CHF cilostazol stopped
-COPD as well as suspected underlying interstitial lung disease. There is concern for Systemic Autoimmune Rheumatologic Disease (SARD) associated with interstitial lung disease. Elevated rheumatoid factor and SS�A antibody level. Pulmonary
following
-he was noted to be anemic with abnormal iron studies and is receiving iron repletion.
-OP cardiac follow up arranged.
Progress Note - Java Flex Developer
Subjective
Date of Service: November 27, 2024
reports good urine output overnight
Objective
Labs:
11/26/24 04:37
11/27/24 02:47
Labs
Hgb 10.3 g/dL (13.0-18.0) L 11/26/24 04:37
Hct 33.6 % (39.0-52.0) L 11/26/24 04:37
Plt Count 189 10^3/uL (130-400) 11/26/24 04:37
Sodium 135 mmol/L (135-145) 11/27/24 02:47
Potassium 4.5 mmol/L (3.5-5.1) 11/27/24 02:47
BUN 58 mg/dl (9-20) H 11/27/24 02:47
Creatinine 1.2 mg/dL (0.7-1.3) 11/27/24 02:47
Glucose 106 mg/dl (70-99) H 11/27/24 02:47
Troponins
11/25/24
03:43
Troponin I 0.029
Vital Signs and I&O:
Vital Signs
Temp Pulse Resp BP Pulse Ox
97.8 F 55 18 120/69 93
11/27/24 08:08 11/27/24 09:00 11/27/24 08:08 11/27/24 08:10 11/27/24 09:37
Vital Signs
Temp Pulse Resp BP Pulse Ox
97.8 F 55 18 120/69 93
11/27/24 08:08 11/27/24 09:00 11/27/24 08:08 11/27/24 08:10 11/27/24 09:37
Intake & Output
11/25/24 11/26/24 11/27/24 11/28/24
07:59 07:59 07:59 07:59
Intake Total 750 / 750
Output Total 850 / 850 1700 / 1700 3505 / 3505
Balance -100 / -100 -1700 / -1700 -3505 / -3505
Physical Exam
Physical Exam
GEN: No distress, awake, alert, oriented x3. sitting in chair
HEENT: supple, anicteric, mmm, eomi
LUNGS: CTA anterolaterally, no wheezes
CV: Reg, S1/S2, no murmur
ABD: soft, BS+, NT/ND
EXT: No cyanosis, clubbing. 3+ edema of B/L LE
NEURO: Gross non-focal
SKIN: Warm, pink, dry. No rash
[2024-11-27 11:26] VITALS: BP 120/57
--- NOTE | 2024-11-27 11:33 | W.PN.NEPH.PH ---
Today's Communication / Plan
-
Continue p.o. diuretic
Assessment/Plan
-
Impression:
Nephrotic range proteinuria/hypoalbuminemia
Microhematuria
Decompensated congestive heart failure
Metabolic alkalosis
COPD/ILD
CKD (1.1): Renal ultrasound notes bilateral renal cysts no hydronephrosis normal size kidneys)
Plan:
Check 24-hour urine for protein and creatinine
Serologic workup has been unremarkable and does not explain his proteinuria.
At this point the only possible way of obtaining a diagnosis would be kidney biopsy
Previous discussions with the family including his son who is a ENGRAVER BLOCK. A biopsy has a potential to offer diagnosis but may also show scarring or insufficient tissue. This would also add some additional risk of the biopsy including bleeding.
Empiric treatment for nephrotic syndrome would ultimately include high-dose steroids or immunosuppressive therapy which I will be cautious with given his significant lung disease. I would be hesitant to do this without a diagnosis.
Also given his age as well as the fact that his creatinine is 1.0, he may still maintain sufficient kidney function over time despite the nephrotic syndrome.
agreed to continue diuretic therapy at this time and to hold off on kidney biopsy.
Bumex 2 mg twice daily
SGLT2 inhibitor/Aldactone
replete vitamin D
Ideally TIMOTHY inhibitor or angiotensin receptor vicky for antiproteinuric effect as a conservative treatment
follow BMP
-
-
Date of Service: November 27, 2024
CC / HPI / ROS
-
Chief Complaint:
Nephrotic range proteinuria
History of Present Illness:
Creatinine stable at 1.2
Hemodynamically stable
WBC improving to 10.3
Modest diuresis overnight
Review of Systems:
Subjectively nonoliguric
No chest pain or shortness of breath
Labs
-
Labs:
WBC 10.9 10^3/uL (4.8-10.8) H 11/26/24 04:37
RBC 4.03 10^6/uL (4.70-6.10) L 11/26/24 04:37
Hgb 10.3 g/dL (13.0-18.0) L 11/26/24 04:37
Hct 33.6 % (39.0-52.0) L 11/26/24 04:37
Plt Count 189 10^3/uL (130-400) 11/26/24 04:37
Sodium 135 mmol/L (135-145) 11/27/24 02:47
Potassium 4.5 mmol/L (3.5-5.1) 11/27/24 02:47
Chloride 93 mmol/L (98-107) L 11/27/24 02:47
Carbon Dioxide 35 mmol/L (22-30) H 11/27/24 02:47
BUN 58 mg/dl (9-20) H 11/27/24 02:47
Creatinine 1.2 mg/dL (0.7-1.3) 11/27/24 02:47
eGFR > 60.00 11/27/24 02:47
Glucose 106 mg/dl (70-99) H 11/27/24 02:47
Calcium 7.6 mg/dl (8.4-10.2) L 11/27/24 02:47
Htn-Q-Dlseymtfjwn Pept 6090 pg/ml 11/21/24 01:47
Albumin 2.2 g/dl (3.5-5.0) L 11/20/24 10:25
Physical Exam
-
Vital Signs:
Vital Signs
Temp Pulse Resp BP Pulse Ox
97.6 F 55 16 120/69 94
11/27/24 11:23 11/27/24 09:00 11/27/24 11:23 11/27/24 08:10 11/27/24 11:23
Cardiovascular:: Regular rate and rhythm
Respiratory:: Bilateral: Coarse
Lung Excursion:: Normal
Abdomen:: Nontender and Soft
Bowel Sounds:: Normal
Extremity Edema:: +3: Bilateral:
[2024-11-27 13:11] VITALS: BP 110/52
[2024-11-27 13:25] VITALS: BP 110/52; PULSE 59; O2SAT 95
--- NOTE | 2024-11-27 13:36 | W.DS.TRANS ---
DC Summary - Manager Investment Banking
-
Discharge Instructions:
Sleep Apnea Risk Intermediate
Discharge Diagnosis/Procedures Acute CHF
Nephrotic syndrome
Diet 2 Gram Sodium
Blood Work BMP in 1 week
Other Services VN
Specialty Instructions Weigh Daily
Instructions: *DCA Heart Failure Instructions
Stand-Alone Forms: DC Instructions- Cath/EP Lab
Changes to Home Medications: Yes
Discharge Medications:
DC Medications w/original date entered in [employer]
amlodipine 5 mg tablet (Norvasc) 5 mg PO DAILY Blood Pressure 10/31/24
carboxymethylcellulose 0.5 %-glycerin 0.9 % eye drops (Refresh Optive) 1 drp BOTH EYES TID Eye Condition 10/31/24
cilostazol 100 mg tablet 100 mg PO BID Blood Clot Prevention/Tx 10/31/24
fluticasone fur. 100 mcg-umeclid 62.5 mcg-vilant 25 mcg inhalat.powder (Trelegy Ellipta) 1 inh inhalation R DAILY Lung/Breathing Issues 10/31/24
omeprazole 20 mg tablet,delayed release 20 mg PO DAILY Gastrointestinal Issue 10/31/24
sertraline 25 mg tablet 25 mg PO HS Depression 10/31/24
hydralazine 25 mg tablet 25 mg PO BID #60 tabs 11/05/24
valsartan 160 mg tablet 160 mg PO DAILY #30 tabs 11/05/24
bumetanide 2 mg tablet 2 mg PO BID@0800,1600 #60 tabs 11/27/24
carvedilol 12.5 mg tablet 12.5 mg PO BID #60 tabs 11/27/24
dapagliflozin propanediol 10 mg tablet 10 mg PO DAILY #30 tabs 11/27/24
spironolactone 25 mg tablet 12.5 mg (1/2 x 25 mg) PO DAILY #30 tabs 11/27/24
Home Medication Changes
Coreg increased
Lasix stopped
Bumex and Aldactone initiated
Valsartan on hold pending renal function follow up.
Pending Results: No
--- NOTE | 2024-11-27 13:55 | CM ---
CM following for DC planning needs.
Pt. for DC to home today.
Plan is for home w/ resumption of home-care thru [facility].
Updated clinical information sent to [facility] w/ notification of DC.
Bailey: HOME w/ [facility] VN MATHEUS
[phone]
[2024-11-27 14:37] LABS: 24 Hour Urine Creatinine 0.619 gm/day (1.0-2.0); 24 Hour Urine Total Volume 3600 ml; Urine Protein 110 mg/dl (0-12)
[2024-11-27 14:42] VITALS: BP 109/56
--- NOTE | 2024-11-27 18:18 | PTCARENOTE ---
Pt seen by Martha Burgos NP and . Telemetry and IV device removed. Discharge instructions reviewed with pt and his and son regarding CHF and activity guidelines, wound care, medications and their possible side effects, reproting
cares and concerns and follow up appointments and blood tests. Very good understanding verbalized, pts son will oversee his new med list and VN will visit him. Pt escorted out via wheelchair and discharged to home.
--- NOTE | 2024-11-28 11:36 | W.HF.CON ---
Heart Failure
- LV Function
Left ventricular function study result: LV Ejection fraction >/= 50% (10/21/24)
Ejection Fraction Percentage: 60-65
- ARNI
Patient already on ARNI: No
Heart Failure ARNI Not Indicated: LV Ejection Fraction >/= 40%
- ACEI/ARB
Patient already on ACEI/ARB: No
Heart Failure ACEI/ARB Not Indicated: LV Ejection Fraction > 40%
- Beta Familia
Patient already on Evidence Based Beta Familia: Yes
- Mineralocorticord Receptor Antagonist
Patient already on MRA: Yes
- SGLT-2 Inhibitor
Patient already on SGLT-2 Inhibitor: Yes
- NYHA CHF Classification
NYHA CHF Classification Level: Class III - Symptoms w/ min exertion, interferes w/ nml daily activity
- ACC/AHA Stage
ACC/AHA Stage: Stage C: Symptomatic Heart Failure
== END 2024-11-27 17:20 | disposition home health service (06) | DRG 286 ==
LOC: IVU 16:17
PROVIDERS: Hospitalist; Internal Medicine Cardiovascular Disease; Internal Medicine Interventional Cardiology; Nurse Practitioner; Nurse Practitioner Family; Physician Assistant; Specialist; ADMITTING PHYSICIAN Hospitalist; ATTENDING PHYSICIAN Internal Medicine; CONSULT PHYSICIAN Internal Medicine Critical Care Medicine; CONSULT PHYSICIAN Specialist; EMERGENCY PHYSICIAN Emergency Medicine; FAMILY PHYSICIAN Family Medicine; OTHER PHYSICIAN Internal Medicine Cardiovascular Disease
PROC: 4A023N6 Measurement of Cardiac Sampling and Pressure, Right Heart, Percutaneous Approach (ICD-10-PCS; 2024-11-25)
PROC: B2111ZZ Fluoroscopy of Multiple Coronary Arteries using Low Osmolar Contrast (ICD-10-PCS; 2024-11-25)
PROC: B2141ZZ Fluoroscopy of Right Heart using Low Osmolar Contrast (ICD-10-PCS; 2024-11-25)
DX: I13.0 Hypertensive heart and chronic kidney disease with heart failure and stage 1 through stage 4 chronic kidney disease, or unspecified chronic kidney disease (principal); I50.33 Acute on chronic diastolic (congestive) heart failure; J96.21 Acute and chronic respiratory failure with hypoxia; E87.4 Mixed disorder of acid-base balance; N17.9 Acute kidney failure, unspecified; I47.19 Other supraventricular tachycardia; J84.9 Interstitial pulmonary disease, unspecified; Z87.891 Personal history of nicotine dependence; N18.32 Chronic kidney disease, stage 3b; J43.2 Centrilobular emphysema; D64.9 Anemia, unspecified; K21.9 Gastro-esophageal reflux disease without esophagitis; I27.20 Pulmonary hypertension, unspecified; I34.0 Nonrheumatic mitral (valve) insufficiency; I73.9 Peripheral vascular disease, unspecified; I5A Non-ischemic myocardial injury (non-traumatic); E78.00 Pure hypercholesterolemia, unspecified; E88.09 Other disorders of plasma-protein metabolism, not elsewhere classified; N28.1 Cyst of kidney, acquired; Z99.81 Dependence on supplemental oxygen
CPT/HCPCS: 51798; 71045; 71046; 76770; 80048; 80053; 80061; 81050; 82040; 82085; 82164; 82306; 82550; 82570; 82668; 83516; 83735; 83880; 84156; 84443; 84484; 84550; 85025; 85027; 85652; 86038; 86140; 86160; 86200; 86225; 86235; 86255; 86331; 86430; 86431; 86606; 93005; 93451; 94640; 96374; 97110; 97116; 97163; 97530; 99285; C1769; C1894; J2916; P9045

== ENCOUNTER 2025-02-23 11:13 | Inpatient (IN) | payer MEDICARE, SELFPAY ==
[2025-02-23] VITALS (11 sets, daily range): BP systolic 126–149; BP diastolic 57–84; BMI 25.2
[2025-02-23] MEDS: DILAUDID 1 MG IV ×2 (08:41→10:18)
[2025-02-23] MEDS: ZOFRAN 4 MG IV (08:41)
[2025-02-23 08:56] LABS: % Basophils 0.4 % (0-2); % Eosinophils 0.1 % (0-6); % Immature Granulocytes 0.4 % (0-0.5); % Lymphocytes 17.5 % (20.5-51.1); % Monocytes 8.7 % (1.7-9.3); % Neutrophils 72.9 % (42.2-75.2); Absolute Basophils 0.1 10^3/uL (0-0.2); Absolute Neutrophils 8.2 10^3/uL (1.4-6.5); Hematocrit 45.2 % (39.0-52.0); Hemoglobin 14.9 g/dL (13.0-18.0); Mean Corpuscular Hgb 27.5 pg (27.0-31.0); Mean Corpuscular Volume 83.5 fL (80.0-94.0); Mean Platelet Volume 10.3 fL (7.4-10.4); Nucleated Red Blood Cells % 0 % (-); Platelet Count 162 10^3/uL (130-400); Red Blood Cell Count 5.41 10^6/uL (4.70-6.10); Red Cell Dist. Width 15.6 % (11.5-14.5); White Blood Cell Count 11.2 10^3/uL (4.8-10.8)
[2025-02-23 09:08] LABS: Blood Urea Nitrogen 46 mg/dl (9-20); Calcium 8.7 mg/dl (8.4-10.2); Carbon Dioxide 32 mmol/L (22-30); Chloride 97 mmol/L (98-107); Estimated Creatinine Clearance 37 ml/min; Glucose 128 mg/dl (70-99); Sodium 137 mmol/L (135-145); eGFR 46.19
[2025-02-23 09:12] LABS: INR 0.97; PT 13.2 Sec (11.4-14.6)
[2025-02-23 09:13] LABS: APTT 29.1 Sec (23.4-35.0)
[2025-02-23 09:16] LABS: Lactic Acid 1.2 mmol/L (0.7-2.0)
[2025-02-23] MEDS: NSS 1000 IV (09:19)
--- NOTE | 2025-02-23 09:31 | ED.GENMED ---
Addendum entered and electronically signed by Eron Grey DO 02/23/25 10:55:
[id number] noted-[id number] @65/min
Original Note:
History of Present Illness
General
Chief Complaint: Abdominal Symptoms
Source: patient, records, family and previous hospital records
Exam Limitations: none
Time Seen by Provider: 02/23/25 07:50
Nursing documentation reviewed up to this point in time: agreed with
History of Present Illness
History of Present Illness:
84-year-old male presents with lower abdominal pain nausea vomiting onset a few days ago known inguinal hernia saw Dr. Herrera previously during an admission plan was for elective surgical repair when his lung and heart issues got worked out, also
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
bowel movement for a few days
Past History
Past History
ED Past Medical History: CHF and HTN
ED Past Surgical History: None
Social History
Tobacco: Non-smoker
Alcohol: None
Drug: None
Living: with family
Employment: Retired
Review of Systems
Review of Systems
All Other Systems: Not applicable
Cardiac: Reports no symptoms
ABD/GI: Reports abdominal pain, nausea and vomiting
: Reports no symptoms
Musculoskeletal: Reports no symptoms
Phy Exam
Physical Exam
Physical Exam:
Physical Exam
General: 84-year-old male looks uncomfortable
Neck: Dry lips
Heart: Regular
Lungs: no acute respiratory distress. clear bilaterally
Abdomen: Distended with diminished bowel sounds tender palpable bulge in the left inguinal region
Neuro: alert and oriented. no focal neurological deficits
Skin: no rash
Psychiatric: well kept. interactive and cooperative
Extremities: no edema.
Course
Orders/Labs/Results
Orders:
Orders
02/23/25 08:21
HYDROmorphone [Dilaudid] 1 mg IV NOW STA
Ondansetron Injectable [Zofran] 4 mg IV NOW STA
02/23/25 08:22
CR Abdomen, Portable - 1 View Urgent
Reason For Exam: pain vomiting
02/23/25 08:24
CR Chest Portable - 1 View Urgent
Comment:
Reason For Exam: pain
Reason Study Needs to be Portable: Patient Unstable
02/23/25 08:43
Basic Metabolic Panel Urgent
Complete Blood Count/With Diff Urgent
Lactic Acid Stat
PTT Urgent
Prothrombin Time Urgent
02/23/25 09:09
0.9% Sodium Chloride 1000 ml [Nss] 1,000 ml IV BOLUS
02/23/25 09:16
Basic Metabolic Panel Urgent
02/23/25 10:04
Consult Surgery [SURGICAL CONSULT] Urgent
Consulting Provider: Nathen Bond
Was physician already notified: Yes
02/23/25 10:14
HYDROmorphone [Dilaudid] 1 mg IV NOW STA
02/23/25 10:26
CARDIOLOGY CONSULT Routine
Consulting Provider: Genaro Cartwright
Was physician already notified: Yes
Abnormal Lab Results
02/23/25 02/23/25
08:43 09:16
WBC 11.2 H 10^3/uL
(4.8-10.8)
RDW 15.6 H %
(11.5-14.5)
Absolute Neuts (auto) 8.2 H 10^3/uL
(1.4-6.5)
Absolute Monos (auto) 1.0 H 10^3/uL
(0.1-0.6)
Lymphocytes % 17.5 L %
(20.5-51.1)
Chloride 97 L mmol/L
(98-107)
Carbon Dioxide 32 H mmol/L 33 H mmol/L
(22-30) (22-30)
BUN 46 H mg/dl 45 H mg/dl
(9-20) (9-20)
Creatinine 1.5 H mg/dL 1.5 H mg/dL
(0.7-1.3) (0.7-1.3)
Glucose 128 H mg/dl 126 H mg/dl
(70-99) (70-99)
02/23/25 08:43
02/23/25 09:16
Vital Signs
Initial and Last Documented VS:
Initial Vital Signs
Temp Pulse Resp BP Pulse Ox
97.7 F 59 18 131/69 93
02/23/25 07:12 02/23/25 07:12 02/23/25 07:12 02/23/25 07:12 02/23/25 07:12
Last Documented Vital Signs
Temp Pulse Resp BP Pulse Ox
97.7 F 59 16 131/69 93
02/23/25 07:12 02/23/25 07:12 02/23/25 10:00 02/23/25 07:12 02/23/25 07:12
MDM/Problems Addressed
Differential Diagnosis Includes:
Incarcerated hernia bowel obstruction diverticulitis less likely UTI
MDM/Problems Addressed:
Inguinal pain dominant
Chronic conditions affecting care:
Inguinal hernia
Acute Exacerbation and/or Progression of Chronic Illness:
Inguinal hernia
*Radiology
Radiology exam reviewed: radiology read reviewed
*Pulse Oximetry
Patient hypoxic: no
*Critical Care Note
Total Time (30-74mins, 75-104mins- exclusive of procedures): Not Applicable
Data Reviewed
Review of Other/Old Records Reveals: Labs and Discharge Summary
Source: patient, records, family and previous hospital records
Update Note
Update Note:
Update, I was unable to reduce his hernia consult presser general surgery, plan will be for him to go to the operating room medicine cardiology is being consulted
ED Attending Note
-
Portions of this chart may have been created with voice recognition software.� Occasional wrong word or��sound alike� substitutions may have occurred due to the inherent limitations of voice recognition software.
Discharge Plan
Departure
Patient Disposition: Admit
Date of Disposition: 02/23/25
Time of Disposition: 10:27
Admit to: OR
Admit to doctor: Hospitalist with consult to Dr. Bond on-call for general surgery
Presentation/result/management discussed w/ accepting MD/DO: Hospitalist
Discharge Problem:
Umbilical hernia, incarcerated
Prescriptions:
No Action
cilostazol 100 mg Tablet
100 mg PO BID
amlodipine [Norvasc] 5 mg Tablet
5 mg PO DAILY
sertraline 25 mg Tablet
25 mg PO HS
Refresh Optive 0.5-0.9 % Drops
1 drp BOTH EYES TID
omeprazole 20 mg Tablet,Delayed Release (Dr/Ec)
20 mg PO DAILY
Trelegy Ellipta 100-62.5-25 mcg Blister With Device
1 inh INHALATION R DAILY
hydralazine 25 mg Tablet
25 mg PO BID Qty: 60 1RF
valsartan 160 mg Tablet
160 mg PO DAILY Qty: 30 1RF
carvedilol 12.5 mg Tablet
12.5 mg PO BID Qty: 60 0RF
bumetanide 2 mg Tablet
2 mg PO BID@0800,1600 Qty: 60 0RF
dapagliflozin propanediol 10 mg Tablet
10 mg PO DAILY Qty: 30 0RF
spironolactone 25 mg Tablet
12.5 mg PO DAILY Qty: 30 0RF
Referrals:
Abad Chung Jr., DO [Family Provider] -
Interventions
Interventions:
*Risk Screen - Suicide Last Done: 02/23/25 07:12
*General Assessment Last Done: 02/23/25 07:12
*Neglect/Abuse Screening Last Done: 02/23/25 09:25
*ED COVID-19 Vaccine History Last Done: 02/23/25 07:12
ZS-Zproqq-Hjrbvoglmg Assessment Last Done: 02/23/25 08:48
Discharge Date and Time
Print Language: IRISH
[2025-02-23 09:44] LABS: Blood Urea Nitrogen 45 mg/dl (9-20); Calcium 8.4 mg/dl (8.4-10.2); Carbon Dioxide 33 mmol/L (22-30); Chloride 99 mmol/L (98-107); Estimated Creatinine Clearance 37 ml/min; Glucose 126 mg/dl (70-99); Potassium 4.3 mmol/L (3.5-5.1); Sodium 137 mmol/L (135-145); eGFR 46.19
--- NOTE | 2025-02-23 10:45 | CON.GS ---
Consultation
-
Date/Time Consultation Requested: 02/23/25 @10:04
Date/Time Consultation Performed: 02/23/25 @10:25
Requesting Provider: Eron Grey DO
Performing Provider: Jignesh Bond MD
Reason for Consultation: Incarcerated left inguinal hernia
Medical History
-
Chief Complaint: Vomiting, abdominal distention and left groin pain
History of Present Illness:
84-year-old male who presents to the ER with no bowel movement for 3 days, abdominal distention, vomiting last night and left groin pain. He has a known left inguinal hernia and the plan was for a possible repair once recovered from a recent
hospitalization with CHF. He was admitted from 11/14/24 to 11/27/24 with acute on chronic respiratory failure, HFpEF and acute kidney injury. He underwent a right inguinal hernia repair with mesh in the past.
At present he has nausea and feels distended. He is afebrile and his vital signs are normal. His WBC is 11.2, Hgb 14.9 g/dL and BUN/creat at 45/1.5 (which is baseline). His abdomen is distended and tympanitic but not tender. The left groin is
swollen, indurated, and tender. There is some overlying erythema. Abdominal x-rays reveal a distended transverse colon and a chest x-ray reveals mild pulmonary vascular congestion and no free air.
His son, Paul, is at the bedside.
Past Medical History
Past Medical History: CHF, COPD, GERD, HTN, Renal Failure (nephrotic syndrome) and Other (pulmonary hypertension; PVD)
Past Surgical History: Hernia Repair (right inguinal hernia repair with mesh)
Social History
Tobacco: Former Smoker
Alcohol: Occasional
Personal:
Living: With Family
Employment: Retired
Family History
Family History: Reviewed & Not Pertinent
Allergies / Home Medications
Allergy/AdvReac Type Severity Reaction Status Date / Time
No Known Allergies Allergy Verified 02/23/25 07:15
�Medication �Instructions �Recorded �Confirmed �Type
amlodipine 5 mg tablet (Norvasc) 5 mg PO DAILY Blood Pressure 10/31/24 11/14/24 History
carboxymethylcellulose 0.5 1 drp BOTH EYES TID Eye Condition 10/31/24 11/14/24 History
%-glycerin 0.9 % eye drops
(Refresh Optive)
cilostazol 100 mg tablet 100 mg PO BID Blood Clot 10/31/24 11/14/24 History
Prevention/Tx
fluticasone fur. 100 mcg-umeclid 1 inh inhalation R DAILY 10/31/24 11/14/24 History
62.5 mcg-vilant 25 mcg Lung/Breathing Issues
inhalat.powder (Trelegy Ellipta)
omeprazole 20 mg tablet,delayed 20 mg PO DAILY Gastrointestinal 10/31/24 11/14/24 History
release Issue
sertraline 25 mg tablet 25 mg PO HS Depression 10/31/24 11/14/24 History
hydralazine 25 mg tablet 25 mg PO BID #60 tabs 11/05/24 11/14/24 Rx
valsartan 160 mg tablet 160 mg PO DAILY #30 tabs 11/05/24 11/14/24 Rx
bumetanide 2 mg tablet 2 mg PO BID@0800,1600 #60 tabs 11/27/24 Rx
carvedilol 12.5 mg tablet 12.5 mg PO BID #60 tabs 11/27/24 Rx
dapagliflozin propanediol 10 mg 10 mg PO DAILY #30 tabs 11/27/24 Rx
tablet
spironolactone 25 mg tablet 12.5 mg (1/2 x 25 mg) PO DAILY #30 11/27/24 Rx
tabs
Review of Systems
-
History Source: Patient
All other systems: Negative unless noted
A 10 point review of systems was completed, and was negative except as per HPI.
Physical Exam
Vital Signs
Temp Pulse Resp BP Pulse Ox
97.7 F 59 16 131/69 93
04/20/25 07:12 02/23/25 07:12 02/23/25 10:00 02/23/25 07:12 02/23/25 07:12
02/22/25 02/23/25 02/24/25
06:59 06:59 06:59
Actual Weight 75.2 kg
Body Mass Index (BMI) 25.2
Lab Results
02/23/25 08:43
02/23/25 09:16
WBC 11.2 10^3/uL (4.8-10.8) H 02/23/25 08:43
Hgb 14.9 g/dL (13.0-18.0) 02/23/25 08:43
Hct 45.2 % (39.0-52.0) 02/23/25 08:43
Plt Count 162 10^3/uL (130-400) 02/23/25 08:43
Abs Immat Gran (auto) 0.0 10^3/uL (0-0.05) 02/23/25 08:43
Neutrophils % 72.9 % (42.2-75.2) 02/23/25 08:43
Physical Exam
General: Well Developed, Well Nourished and No Apparent Distress
Respiratory: Clear
Cardiac: Regular Rhythm
GI: Non Tender, Distended and Other (tympany)
Musculoskeletal: No Edema
Neuro: Awake and Alert
Data Reviewed
-
Radiology: Image Personally Visualized and interpreted, Report Reviewed by me, Discussed with Patient and Discussed with Family
Labs: Labs Reviewed by me, Discussed with Patient and Discussed with Family
Assessment / Plan
-
Incarcerated left inguinal hernia, unable to be reduced. I suspect it involves the sigmoid colon.
I reviewed the current findings and treatment options with the patient and his son with the risks and benefits of each. Without surgery there is a risk of perforation. Risks of surgery include, but are not limited to, bleeding, infection,
recurrence, injury to other structures, bowel leakage, chronic pain, DVT, cardiopulmonary complications, and the risks of anesthesia. I will discuss the anesthetic options with the anesthesiologist but I suspect general anesthesia will be needed to
protect his airway. There is the possibility he remains intubated postop. I plan on making an incision in the groin and possibly the abdomen depending upon the operative findings. Mesh may or may not be used. Without mesh the recurrence rate is
higher and with mesh, there is a risk of infection. He might need postop monitoring in the ICU, IMU or IVU. I also reviewed the typical recovery. All questions answered and he wishes to proceed. Arrangements are in progress for the OR.
--- NOTE | 2025-02-23 11:02 | CON.CAR ---
Consultation
Consultation Request
Date/Time Consultation Requested: 02/23/2025
Date/Time Consultation Performed: 02/23/2025
Requesting Provider: Gennaro Marcum
Performing Provider: Gabbie
Reason for Consultation: Operative management
Medical History
-
Chief Complaint: Operative management
History of Present Illness:
84 year old male with incarcerated hernia heading to emergency surgery.
Recent diastolic HF admit. Iron deficiency anemia.
Normal EF%.
Nephrotic rage proteinuria undergoing workup creatinine 1.4-5.
CXR reviewed mild vascular prominence
ECG reviewed without significant ST-T changes
Labs noted
Seen in person immediately postoperatively. Seen in the PACU.
He has no chest pain or pressure and had an uneventful left inguinal incarcerated hernia repair. No chest pain or pressure or dyspnea when seen in PACU.
Past Medical History
Past Medical History: Arrhythmias, CHF, HTN and Renal Failure
Social History
Tobacco: Non-Smoker
Alcohol: None
Drug: None
Personal:
Living: With Family
Employment: Retired
Family History
Family History: Reviewed & Not Pertinent
Allergies / Home Medications
Allergy/AdvReac Type Severity Reaction Status Date / Time
No Known Allergies Allergy Verified 02/23/25 07:15
�Medication �Instructions �Recorded �Confirmed �Type
amlodipine 5 mg tablet (Norvasc) 5 mg PO DAILY Blood Pressure 10/31/24 11/14/24 History
carboxymethylcellulose 0.5 1 drp BOTH EYES TID Eye Condition 10/31/24 11/14/24 History
%-glycerin 0.9 % eye drops
(Refresh Optive)
cilostazol 100 mg tablet 100 mg PO BID Blood Clot 10/31/24 11/14/24 History
Prevention/Tx
fluticasone fur. 100 mcg-umeclid 1 inh inhalation R DAILY 10/31/24 11/14/24 History
62.5 mcg-vilant 25 mcg Lung/Breathing Issues
inhalat.powder (Trelegy Ellipta)
omeprazole 20 mg tablet,delayed 20 mg PO DAILY Gastrointestinal 10/31/24 11/14/24 History
release Issue
sertraline 25 mg tablet 25 mg PO HS Depression 10/31/24 11/14/24 History
hydralazine 25 mg tablet 25 mg PO BID #60 tabs 11/05/24 11/14/24 Rx
valsartan 160 mg tablet 160 mg PO DAILY #30 tabs 11/05/24 11/14/24 Rx
bumetanide 2 mg tablet 2 mg PO BID@0800,1600 #60 tabs 11/27/24 Rx
carvedilol 12.5 mg tablet 12.5 mg PO BID #60 tabs 11/27/24 Rx
dapagliflozin propanediol 10 mg 10 mg PO DAILY #30 tabs 11/27/24 Rx
tablet
spironolactone 25 mg tablet 12.5 mg (1/2 x 25 mg) PO DAILY #30 11/27/24 Rx
tabs
Review of Systems
-
All other systems: Negative unless noted
Constitutional: No Symptoms
Respiratory: No Symptoms
Cardiac: No Symptoms
Physical Exam
Vital Signs
Temp Pulse Resp BP Pulse Ox
97.7 F 63 16 145/84 98
02/23/25 07:12 02/23/25 11:00 02/23/25 11:00 02/23/25 11:00 02/23/25 11:00
Lab Results
02/23/25 08:43
02/23/25 09:16
Physical Exam
General: Well Developed and Well Nourished
HEENT: Normocephalic
Respiratory: Clear
Cardiac: S1/S2, Regular Rhythm and Murmur (No murmur)
Breast: Deferred by me
GI: Soft, Non Tender, Non Distended and Normal Bowel Sounds
Rectal: Deferred by Provider
Genito-urinary: Clear Urine
Musculoskeletal: No Clubbing and No Cyanosis
Skin: Warm and Dry
Neuro: Awake, Alert and Oriented
Hematologic/Lymphatic: No Lymphadenopathy
Psych: Calm
Impression / Plan
-
Impression:
Incarcerated hernia
Left incarcerated hernia repair February 23, 2025
Need for urgent/emergent surgery
History of atrial tachycardia
CKD3
History of nephrotic proteinuria
Essential HTN
Iron deficiency anemia
History of diastolic CHF
Normal EF% at echo
Sinus rhythm on presentation
Rec: Patient seen postoperatively.
Need for emergency surgery I communicated with ER team that he can go to OR for emergency surgery and we will follow postoperatively. I reviewed ECG preoperatively and is without any acute ST-T changes and he would be low to moderate cardiovascular
risk preoperatively. Careful management of volume status and renal function postoperatively will be of primary importance. Also should have an ECG postoperatively and reasonable for telemetry postoperatively.
- Seen postoperatively
- ECG
- Stable in PACU without any cardiovascular symptoms reported
- He appears euvolemic on exam
- Reasonable to repeat laboratory values tomorrow
- Would hopefully anticipate discharge in the next 24 to 48 hours
Data Reviewed
-
EKG: Tracing Personally Visualized and interpreted
Radiology: Image Personally Visualized and interpreted
Labs: Labs Reviewed by me
Old Records: Reviewed
--- NOTE | 2025-02-23 11:04 | HPS.HSE ---
Family Physician
-
Family Physician: Abad Chung
Chief Complaint
-
abdominal pain
History of Present Illness
84yo M with HFpEF, membranous nephropathy, HTN, moderate MR, pulmonary HTN, CKD stage 3b, PAD, HLD, COPD came with 4 days of abdominal pain located to umbilicus with consitpation, found incarcerated mbilical hernia. He was eventually planning for
elective surgery to fix it, however due to resent Hx of respiratory problems - that was delayed.
Medical History
Past Medical History
Past Medical History: Reports Other
Additional Past Medical History:
see HPI
Past Surgical History: Reports Other
Additional Past Surgical History:
See HPI
Social History
Tobacco: Former Smoker
Alcohol: None
Drug: None
Family History
Family History: Not pertinent
Allergies / Home Medications
Allergies reflects when Allergies were last updated in [facility].
Home Medications with original date entered in [facility]
Allergy/Medication List:
Allergies
Allergy/AdvReac Type Severity Reaction Status Date / Time
No Known Allergies Allergy Verified 02/23/25 07:15
Home Medications - not updated at the time of admisison
amlodipine 5 mg tablet (Norvasc) 5 mg PO DAILY Blood Pressure 10/31/24
carboxymethylcellulose 0.5 %-glycerin 0.9 % eye drops (Refresh Optive) 1 drp BOTH EYES TID Eye Condition 10/31/24
cilostazol 100 mg tablet 100 mg PO BID Blood Clot Prevention/Tx 10/31/24
fluticasone fur. 100 mcg-umeclid 62.5 mcg-vilant 25 mcg inhalat.powder (Trelegy Ellipta) 1 inh inhalation R DAILY Lung/Breathing Issues 10/31/24
omeprazole 20 mg tablet,delayed release 20 mg PO DAILY Gastrointestinal Issue 10/31/24
sertraline 25 mg tablet 25 mg PO HS Depression 10/31/24
hydralazine 25 mg tablet 25 mg PO BID #60 tabs 11/05/24
valsartan 160 mg tablet 160 mg PO DAILY #30 tabs 11/05/24
bumetanide 2 mg tablet 2 mg PO BID@0800,1600 #60 tabs 11/27/24
carvedilol 12.5 mg tablet 12.5 mg PO BID #60 tabs 11/27/24
dapagliflozin propanediol 10 mg tablet 10 mg PO DAILY #30 tabs 11/27/24
spironolactone 25 mg tablet 12.5 mg (1/2 x 25 mg) PO DAILY #30 tabs 11/27/24
Review of Systems
-
A 12 point ROS was completed and negative except as noted: Yes
Abdomen/GI: Reports See HPI
Physical Exam
Vital Signs
Vital Signs
Temp Pulse Resp BP Pulse Ox
97.7 F 63 16 145/84 98
02/23/25 07:12 02/23/25 11:00 02/23/25 11:00 02/23/25 11:00 02/23/25 11:00
Physical Exam
General: Well Nourished, No Apparent Distress and Comfortable
HEENT: NormoCephalic, Anicteric and Moist mucous membranes
Respiratory: Clear; No Wheezes, Rhonchi or Crackles
Cardiac: Regular Rhythm; No Murmur or Rub
GI: Soft, Non Distended, Tender and Other (umbilical hernia)
Genito-urinary: No costovertebral tender
Musculoskeletal: No Clubbing, No Cyanosis and No Edema
Skin: Warm and Dry; No Rash
Neuro: Awake, Alert, Oriented and AO x 3
Psych: Calm
Laboratory Results
-
02/23/25 08:43
02/23/25 09:16
Laboratory Results
PT 13.2 Sec (11.4-14.6) 02/23/25 08:43
INR 0.97 02/23/25 08:43
APTT 29.1 Sec (23.4-35.0) 02/23/25 08:43
Lactic Acid 1.2 mmol/L (0.7-2.0) 02/23/25 08:43
Total Bilirubin Cancelled 02/23/25 08:43
AST Cancelled 02/23/25 08:43
ALT Cancelled 02/23/25 08:43
Alkaline Phosphatase Cancelled 02/23/25 08:43
Data Reviewed
-
Lab Data: Labs Reviewed by me
Impression/Plan
-
A/P:
#Incarcerated hernia
Unable to reduce in ED
Colorectal Sx for surgical mgmt
Pain mgmt
#Chronic HFpEF
#Pulmonary HTN
#Moderate MR
Cardio consult for post op mgmt
no CHF exacerbation on bedside exam
#mild leukocytosis
most likely stress induced
follow CBC
#COPD chronic
bronchodilators
#elevated Cr without meeting criteria of ROLANDA
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
most likely 2/2 potentiated diuresis upon previous D/C
follow Cr
Nephrology if worsening
hold diuretics before Sx, restart as per cardiology
#Essential HTN
#PAD
#Anxiety d/o
cont home meds
DVT ppx SCDs
Full code - discussed in details with son and patient
I have spent at least 58min reviewing chart, test reuslts, communication with consultants and providing direct patient care
--- NOTE | 2025-02-23 14:57 | W.IMMPOSTOP ---
Surgical Immed Post Op Note
-
Primary Surgeon: Dr. Jignesh Bond
Assisting Surgeon: Hina Trujillo THRASHER FEEDER, ADMINISTRATIVE FELLOW-S
Pre-op Diagnosis: Incarcerated left inguinal hernia
Post-op Diagnosis: Incarcerated direct left inguinal hernia
Procedure Performed: Hernia repair with polypropylene mesh
Anesthesia Type: General
Specimen / Cultures: None
Estimated Blood Loss: 15ml
Complications: None
Operative Findings: Incarcerated direct left inguinal hernia containing sigmoid colon which was viable and able to be reduced. Hernia repaired with polypropylene mesh trimmed to size.
Clear liquid diet today given n/v preop. Continue with barcenas catheter for the first 24-48 hours post op. Analgesics/antiemetics as needed. Ice packs to groin for pain/edema.
--- NOTE | 2025-02-23 15:25 | PTCARENOTE ---
Pt received from the PACU via bed. Transport was w/o incident. Pt is AAOx3, HR regular, Sinus García on the monitor. Lungs are clear, abd soft. Left groin with surgical incision C/D/I well approximated, no drainage noted, w/ surgical glue. VSS, pt is
afebrile. Pt denies pain at present. Pt asked for bedside commode upon getting to post op surgical floor. Pt had 3 large loose/liquid BM's. Pt with barcenas catheter intact draining yellow urine. Pt instructed on plan of care, Pt verbalized
understanding of instructions, call [facility] is within reach.
[2025-02-23] MEDS: DILAUDID 0.5 MG IV (16:36)
[2025-02-23] MEDS: PLETAL 100 MG PO (19:54)
[2025-02-23] MEDS: APRESOLINE 25 MG PO (19:58)
[2025-02-23] MEDS: COREG 12.5 MG PO (19:58)
[2025-02-23] MEDS: ZOLOFT 25 MG PO (22:30)
[2025-02-24] VITALS (7 sets, daily range): BP systolic 107–149; BP diastolic 50–95; PULSE 60; O2SAT 95; BMI 24.8
[2025-02-24 07:16] LABS: % Basophils 0.1 % (0-2); % Immature Granulocytes 0.6 % (0-0.5); % Lymphocytes 9.2 % (20.5-51.1); % Monocytes 4.9 % (1.7-9.3); % Neutrophils 85.2 % (42.2-75.2); Absolute Immature Granulocytes 0.1 10^3/uL (0-0.05); Absolute Lymphocytes 1.3 10^3/uL (1.2-3.4); Absolute Monocytes 0.7 10^3/uL (0.1-0.6); Absolute Neutrophils 12.4 10^3/uL (1.4-6.5); Hematocrit 37.9 % (39.0-52.0); Hemoglobin 12.3 g/dL (13.0-18.0); Mean Corp Hgb Conc. 32.5 g/dL (33.0-37.0); Mean Corpuscular Hgb 27.8 pg (27.0-31.0); Mean Corpuscular Volume 85.6 fL (80.0-94.0); Mean Platelet Volume 10.1 fL (7.4-10.4); Nucleated Red Blood Cells % 0 % (-); Platelet Count 142 10^3/uL (130-400); Red Blood Cell Count 4.43 10^6/uL (4.70-6.10); Red Cell Dist. Width 15.2 % (11.5-14.5); White Blood Cell Count 14.6 10^3/uL (4.8-10.8)
[2025-02-24 07:29] LABS: ALT (SGPT) 13 U/L (0-50); AST (SGOT) 24 U/L (17-59); Albumin 2.5 g/dl (3.5-5.0); Alkaline Phosphatase 109 U/L (38-126); Blood Urea Nitrogen 51 mg/dl (9-20); Calcium 8.3 mg/dl (8.4-10.2); Carbon Dioxide 30 mmol/L (22-30); Chloride 98 mmol/L (98-107); Estimated Creatinine Clearance 34 ml/min; Glucose 141 mg/dl (70-99); Potassium 4.6 mmol/L (3.5-5.1); Sodium 136 mmol/L (135-145); Total Bilirubin 0.4 mg/dl (0.2-1.3); Total Protein 5.7 g/dl (6.3-8.2); eGFR 42.75
[2025-02-24] MEDS: SPIRIVA RESPIMAT 2.5 MCG 2 PUFF INH (07:30)
[2025-02-24] MEDS: SYMBICORT 80/4.5 MCG INHALER 2 PUFF INH ×2 (07:30→19:46)
[2025-02-24] MEDS: ALDACTONE 12.5 MG PO (08:46)
[2025-02-24] MEDS: PLETAL 100 MG PO ×2 (08:46→20:10)
[2025-02-24] MEDS: FARXIGA 10 MG PO (08:48)
[2025-02-24] MEDS: COREG 12.5 MG PO ×2 (08:48→20:10)
[2025-02-24] MEDS: APRESOLINE 25 MG PO ×2 (08:48→20:10)
[2025-02-24] MEDS: TYLENOL 650 MG PO ×2 (08:52→16:51)
--- NOTE | 2025-02-24 09:21 | W.PN.CARDCBS ---
Addendum entered and electronically signed by Chin Gunderson MD 02/24/25 11:07:
84-year-old man with HFpEF and COPD, recently hospitalized with HFpEF in the setting of nephrotic range proteinuria who underwent urgent left inguinal herniorrhaphy for incarceration on February 23. Possibly mild acute HFpEF on admission
PMH:HFpEF, elevated troponin, atrial tachycardia, mild MR, CKD with membranous nephropathy, PAD with moderate to severe left lower extremity claudication, hypertension, hyperlipidemia, GERD, COPD on home O2
Some postoperative discomfort, but sitting eating a soft breakfast without difficulty.
Current meds: Carvedilol 12.5 mg twice daily, cilostazol 100 mg twice daily, dapagliflozin on 10 mg daily, hydralazine 25 mg twice daily, sertraline 25 mg at bedtime, spironolactone 12.5 mg twice daily, Symbicort, Spiriva:
On hold: Bumetanide 2 mg twice daily, amlodipine 5 mg daily valsartan 160 mg daily
149/72, pulse 64, respiratory 16, afebrile, saturation is 95%, no distress at rest, difficulty sitting up, head neck exam unremarkable, breath sounds clear with limited exam, regular rate and rhythm, soft murmur at apex, JVD okay, no edema, abdomen
somewhat distended,
Chest x-ray: Mild vascular congestion
ECG sinus rhythm nonspecific ST-T changes
White count 14.6, hemoglobin 12.3 platelets 142, BUN/creatinine 51 and 1.6, potassium 4.6, lactate level is normal, proBNP is pending, was 6090 in November 2024, 3890 prior to that
Echo October 2024: EF 60-65%, stage III diastolic dysfunction, normal RV, dilated atria, moderate mitral regurgitation, mild TR, pulmonary artery systolic pressure is 52
Impression:
Incarcerated L inguinal hernia
s/p emergency L inguinal hernia repair 02/23/2025
Chronic HFpEF
Atrial tachycardia
Moderate MR
CKD 3
PAD, abnormal L IVAN, mod to severe claudication
HTN
HLD
GERD
COPD with chronic home O2
Hernia
Anemia
Hypoalbuminemia
Plan:
Overall he is doing well postop day 1 status post urgent herniorrhaphy
No evidence of heart failure on exam.
ECG today is satisfactory
Still with ROLANDA, will continue to hold Bumex. Will hold spironolactone as well.
Blood pressure is up, restart amlodipine. Will continue to hold valsartan as well.
Otherwise, continue to observe and advance diet per surgery. Presumably to restart diuretics, valsartan, and spironolactone as renal function improves.
Original Note:
Today's Communication / Plan
-
Continue post-op care
Weight stable, appears euvolemic
Follow creat and resume Bumex as able.
Impression / Plan
-
Primary Online Education Manager: Dr. Elizondo
Impression:
Incarcerated L inguinal hernia
s/p emergency L inguinal hernia repair 02/23/2025
Chronic HFpEF
Atrial tachycardia
Moderate MR
CKD 3
PAD, abnormal L IVAN, mod to severe claudication
HTN
HLD
GERD
COPD with chronic home O2
Hernia
Anemia
Hypoalbuminemia
ECHO 10/21/24: EF 60 to 65%, mild concentric LVH, stage III diastolic dysfunction, moderately dilated atria, mild MAC, moderate MR, mild TR, PAP 52 mmHg, ascending aorta top normal at 3.7 cm
RHC 11/25/2024: RA 15, RV 47/8, PA 46/21, wedge 23 with V waves to 38, cardiac index 2.9
Plan:
-Presented w/ 4 days of abdominal pain. Admitted w/ incarcerated L inguinal hernia. Underwent emergency hernia repair 02/23/2025.
-Doing well post op. Remains stable from cardiac standpoint.
-Post-OP ECG stable, SR with no acute ischemic changes.
-BP and HR overall appear stable. No arrhythmias on tele.
-Continue Coreg, Farxiga, hydralazine, spironolactone.
-Bumex on hold. Creat remains elevated at 1.6. Continue to follow and resume as able.
-Weight stable at 163 lbs.
-Continue post-op care per surgery.
Progress Note - Online Education Manager
Subjective
Date of Service: February 24, 2025
No complaints. Feeling well.
Objective
Labs:
02/24/25 06:34
02/24/25 06:34
Labs
Hgb 12.3 g/dL (13.0-18.0) L 02/24/25 06:34
Hct 37.9 % (39.0-52.0) L 02/24/25 06:34
Plt Count 142 10^3/uL (130-400) 02/24/25 06:34
PT 13.2 Sec (11.4-14.6) 02/23/25 08:43
INR 0.97 02/23/25 08:43
APTT 29.1 Sec (23.4-35.0) 02/23/25 08:43
Sodium 136 mmol/L (135-145) 02/24/25 06:34
Potassium 4.6 mmol/L (3.5-5.1) 02/24/25 06:34
BUN 51 mg/dl (9-20) H 02/24/25 06:34
Creatinine 1.6 mg/dL (0.7-1.3) H 02/24/25 06:34
Glucose 141 mg/dl (70-99) H 02/24/25 06:34
Vital Signs and I&O:
Vital Signs
Temp Pulse Resp BP Pulse Ox
98.0 F 64 16 149/72 95
02/24/25 07:25 02/24/25 07:37 02/24/25 07:37 02/24/25 07:25 02/24/25 07:37
Vital Signs
Temp Pulse Resp BP Pulse Ox
98.0 F 64 16 149/72 95
02/24/25 07:25 02/24/25 07:37 02/24/25 07:37 02/24/25 07:25 02/24/25 07:37
Intake & Output
02/22/25 02/23/25 02/24/25 02/25/25
06:59 06:59 06:59 06:59
Intake Total 730 / 730
Output Total 600 / 600
Balance 130 / 130
Physical Exam
Physical Exam
GEN: No distress, awake, alert, oriented x3
HEENT: supple, anicteric, mmm
LUNGS: CTA b/l, no wheezes
CV: Reg, S1/S2, no murmur
EXT: No cyanosis, clubbing, or edema
NEURO: Gross non-focal
SKIN: Warm, pink, dry. No rash
--- NOTE | 2025-02-24 09:23 | W.PN.CRS1 ---
Today's Communication / Plan
-
full liquids
heparin subq
pain control
Assessment/Plan
-
POD#1 Incarcerated direct left inguinal hernia
Vitals normal, no labs today
-OOB as tolerated
-Start on full liquids
-DC IVFs when tolerating po
-Start heparin sq for DVT prophylaxis. TEDS/SCDS.
-Potential d/c barcenas later today
-Pain control: Tylenol/Oxycodone/Dilaudid PRN
-Called daughter Winifred (per patient's request) to clarify medications, left a voicemail
Subjective Data
Procedure
02/23/2025- Incarcerated direct left inguinal hernia
Subjective Data
Date of Service: February 24, 2025
Patient states he is doing well. He has no complaints other than some indigestion after eating.
Objective Data
-
Vital Signs
Temp Pulse Resp BP Pulse Ox
98.0 F 64 16 149/72 95
02/24/25 07:25 02/24/25 07:37 02/24/25 07:37 02/24/25 07:25 02/24/25 07:37
Intake & Output
02/23/25 02/24/25 02/25/25
06:59 06:59 06:59
Intake Total 730 / 730
Output Total 600 / 600
Balance 130 / 130
Intake:
Oral fluids 680 / 680
IV fluids (Total) 50 / 50
normosol 50 / 50
Output:
Urine, Barcenas 600 / 600
Other:
Number of unmeasured liquid
stools
Rectum 4
Lab Results
02/24/25 06:34
02/24/25 06:34
Physical Exam
-
General: No Acute Distress and AOx3
Abdomen: Soft, Non Distended and Tender (over incision site)
Skin: Warm and Dry
Incision: Clear, Dry, Intact
[2025-02-24] MEDS: ROXICODONE 5 MG PO (10:21)
[2025-02-24] MEDS: NSS (PRESERVATIVE FREE) 10 ML IV (11:19)
[2025-02-24] MEDS: PROTONIX IV 40 MG IV (11:20)
[2025-02-24] MEDS: NORVASC 5 MG PO (11:21)
--- NOTE | 2025-02-24 13:35 | W.PN.HOSP.TC ---
Today's Communication/Plan
-
Assessment / Plan
Assessment / Plan
General: No Apparent Distress, Comfortable and Conversant
HEENT: NormoCephalic, Moist mucous membranes, Atraumatic
Respiratory: Clear and Non Labored Respirations
Cardiac: S1/S2 and Regular Rhythm; No Rub or Gallop
GI: Soft, mild TTP left inguinal surgical site, Non Distended and Normal Bowel Sounds
Musculoskeletal: No Edema, no deformity
Skin: Warm and dry
: Rey in place draining clear yellow urine
Neuro: Awake, Alert, Nonfocal/grossly intact
Psych: Calm and Intact Judgment/Insight
Mr. 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
presented with abdominal pain and constipation. He was found to have incarcerated left inguinal hernia. He was brought to the OR on 02/23/2025 for reduction and repair of incarcerated left inguinal hernia with mesh.
Incarcerated left inguinal hernia:
- Status post reduction and repair with mesh on 02/23/2025
- Rey catheter left in place postoperatively, follow-up with surgery regarding timing of voiding trial
- Full liquid diet for now, advance diet per surgery recommendations
- Pain control as needed
CKD stage IIIb:
- Likely close to baseline renal function
- Holding Bumex and valsartan for now due to slightly elevated creatinine compared to baseline
HFpEF:
- Appears euvolemic currently
- Holding Bumex and valsartan due to creatinine elevation from baseline, restart as able likely tomorrow 02/25
- Continuing spironolactone and Farxiga
- Beta-blockade with carvedilol 12.5 mg p.o. twice daily
- Afterload reduction with amlodipine 5 mg p.o. daily
- Appreciate cardiology input
COPD:
- Without acute exacerbation
- Continue scheduled inhalers, with nebulizers as needed for wheezing
CODE STATUS: Full code
Anticipated Discharge: 24 - 48 hours
Subjective/Interval History
-
Date of Service: February 24, 2025
Patient was seen and examined at bedside this morning. Feeling generally well with some mild discomfort at surgical incision site. He is anxiously awaiting discontinuation of Rey catheter.
Objective Data
-
Labs:
Laboratory Results
02/24/25
06:34
WBC 14.6 H
Hgb 12.3 L
Hct 37.9 L
Plt Count 142
Sodium 136
Potassium 4.6
Chloride 98
Carbon Dioxide 30
BUN 51 H
Creatinine 1.6 H
Glucose 141 H
Calcium 8.3 L
Total Bilirubin 0.4
AST 24
ALT 13
Alkaline Phosphatase 109
Vital Signs:
Vital Signs
Temp Pulse Resp BP Pulse Ox
97.5 F 60 18 127/62 95
02/24/25 11:00 02/24/25 11:21 02/24/25 11:00 02/24/25 11:21 02/24/25 11:00
I&O
02/23/25 02/24/25 02/25/25
06:59 06:59 06:59
Intake Total 730 / 730 540 / 540
Output Total 600 / 600 350 / 350
Balance 130 / 130 190 / 190
Review of Systems
-
History Source: Patient
All other systems: Reviewed and negative
Abdomen/GI: Reports Other (Pain at left inguinal incision site)
Physical Exam
-
General: No Apparent Distress
--- NOTE | 2025-02-24 13:56 | CM ---
CM met daughter in room. Daughter confirmed that patient has been known to [facility]. CM sent referral via [facility].
[2025-02-24] MEDS: HEPARIN 5000 UNITS SC ×2 (16:52→23:04)
[2025-02-24] MEDS: ZOLOFT 25 MG PO (22:36)
[2025-02-25 03:08] VITALS: BP 121/56
[2025-02-25 06:00] VITALS: BMI 24.9
[2025-02-25 06:57] VITALS: BP 128/64
[2025-02-25] MEDS: SPIRIVA RESPIMAT 2.5 MCG 2 PUFF INH (07:37)
[2025-02-25] MEDS: SYMBICORT 80/4.5 MCG INHALER 2 PUFF INH ×2 (07:37→20:05)
[2025-02-25 08:42] LABS: % Basophils 0.1 % (0-2); % Immature Granulocytes 0.3 % (0-0.5); % Lymphocytes 15.8 % (20.5-51.1); % Monocytes 8.6 % (1.7-9.3); % Neutrophils 75.2 % (42.2-75.2); Absolute Lymphocytes 2.1 10^3/uL (1.2-3.4); Absolute Monocytes 1.2 10^3/uL (0.1-0.6); Hematocrit 38.5 % (39.0-52.0); Hemoglobin 12.5 g/dL (13.0-18.0); Mean Corp Hgb Conc. 32.5 g/dL (33.0-37.0); Mean Corpuscular Hgb 27.6 pg (27.0-31.0); Mean Platelet Volume 10.5 fL (7.4-10.4); Nucleated Red Blood Cells % 0 % (-); Platelet Count 170 10^3/uL (130-400); Red Blood Cell Count 4.53 10^6/uL (4.70-6.10); White Blood Cell Count 13.3 10^3/uL (4.8-10.8)
[2025-02-25 09:12] LABS: Blood Urea Nitrogen 58 mg/dl (9-20); Calcium 8.2 mg/dl (8.4-10.2); Carbon Dioxide 30 mmol/L (22-30); Chloride 97 mmol/L (98-107); Estimated Creatinine Clearance 31 ml/min; Glucose 171 mg/dl (70-99); Potassium 4.6 mmol/L (3.5-5.1); Sodium 133 mmol/L (135-145); eGFR 37.12
--- NOTE | 2025-02-25 09:48 | W.PN.CRS1 ---
Today's Communication / Plan
-
regular diet
d/c barcenas
okay for d/c later today if eating/voiding
Assessment/Plan
-
POD#2 Incarcerated direct left inguinal hernia
Vitals normal
WBC 13.3 (14.6)
-OOB as tolerated
-Advance to regular diet
-Onheparin sq for DVT prophylaxis. TEDS/SCDS.
-D/C barcenas
-Pain control: Tylenol/Oxycodone/Dilaudid PRN
-If tolerating a diet and voiding, okay for discharge later today from our standpoint. Follow up in the office with Dr. Bond in 2 weeks.
Subjective Data
Procedure
02/23/2025- Incarcerated direct left inguinal hernia
Subjective Data
Date of Service: February 25, 2025
Patient states he is feeling well. He has a lot of flatus. He has not had a bowel movement yet. He has no nausea or vomiting. He has no pain.
Objective Data
-
Vital Signs
Temp Pulse Resp BP Pulse Ox
97.8 F 80 15 128/64 94
02/25/25 06:57 02/25/25 07:42 02/25/25 07:42 02/25/25 06:57 02/25/25 07:42
Intake & Output
02/24/25 02/25/25 02/26/25
06:59 06:59 06:59
Intake Total 730 / 730 1080 / 1080 660 / 660
Output Total 600 / 600 1000 / 1000 120 / 120
Balance 130 / 130 80 / 80 540 / 540
Intake:
Oral fluids 680 / 680 1080 / 1080 660 / 660
IV fluids (Total) 50 / 50
normosol 50 / 50
Output:
Urine, Barcenas 600 / 600 1000 / 1000
Urine, Voided 120 / 120
Other:
Number of unmeasured liquid
stools
Rectum 4
Lab Results
02/25/25 08:26
02/25/25 08:26
Physical Exam
-
General: No Acute Distress and AOx3
Abdomen: Soft, Non Distended and Non Tender
Skin: Warm and Dry
Incision: Clear, Dry, Intact
[2025-02-25] MEDS: PLETAL 100 MG PO ×2 (10:05→20:23)
[2025-02-25] MEDS: ALDACTONE 12.5 MG PO (10:06)
[2025-02-25] MEDS: PROTONIX 20 MG PO (10:06)
[2025-02-25] MEDS: FARXIGA 10 MG PO (10:06)
[2025-02-25] MEDS: COREG 12.5 MG PO ×2 (10:06→20:22)
[2025-02-25] MEDS: APRESOLINE 25 MG PO ×2 (10:06→20:23)
[2025-02-25] MEDS: NORVASC 5 MG PO (10:07)
[2025-02-25] MEDS: HEPARIN 5000 UNITS SC ×3 (10:07→23:20)
[2025-02-25 11:00] VITALS: BP 127/59
--- NOTE | 2025-02-25 12:03 | CM ---
CM following re: discharge planning.
Reviewed pt's chart, met with pt.
Pt is POD#2 Incarcerated direct left inguinal hernia, continue supportive care.
Pt reports he lives with spouse in a townhouse, has 4 supportive children. 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
Per CM note, a referral to [facility] made. Pt expressed his agreement to have [facility] services upon the discharge.
Please fax discharge instructions to [facility] at [phone]
IMM reviewed, placed on chart, pt has a copy.
D/C plan: home with [facility] and family support. Family to transport at discharge.
CM will follow with discharge plan updates as hospitalization progresses
--- NOTE | 2025-02-25 12:41 | W.PN.CARDCBS ---
Today's Communication / Plan
-
Stable cardiology status with no signs or symptoms of CHF
Bumex on hold with worsening creatinine to 1.8
Impression / Plan
-
Primary Drawbench Operator: Dr. Elizondo
Impression:
Incarcerated L inguinal hernia
s/p emergency L inguinal hernia repair 02/23/2025
Chronic HFpEF
Atrial tachycardia
Moderate MR
CKD 3
PAD, abnormal L IVAN, mod to severe claudication
HTN
HLD
GERD
COPD with chronic home O2
Hernia
Anemia
Hypoalbuminemia
ECHO 10/21/24: EF 60 to 65%, mild concentric LVH, stage III diastolic dysfunction, moderately dilated atria, mild MAC, moderate MR, mild TR, PAP 52 mmHg, ascending aorta top normal at 3.7 cm
RHC 11/25/2024: RA 15, RV 47/8, PA 46/21, wedge 23 with V waves to 38, cardiac index 2.9
Plan:
Stable cardiology status status post leg inguinal hernia repair
There are no signs or symptoms of CHF
Continue Coreg, Farxiga, hydralazine, spironolactone.
Bumex on hold. Creatinine has worsened to 1.8 and will continue to hold Bumex.
Weight stable at 163 lbs.
Diet being advanced to full per patient.
Progress Note - Drawbench Operator
Subjective
Date of Service: February 25, 2025
No complaints
Objective
Labs:
02/25/25 08:26
02/25/25 08:26
Labs
Hgb 12.5 g/dL (13.0-18.0) L 02/25/25 08:
Hct 38.5 % (39.0-52.0) L 02/25/25 08:26
Plt Count 170 10^3/uL (130-400) 02/25/25 08:26
PT 13.2 Sec (11.4-14.6) 02/23/25 08:43
INR 0.97 02/23/25 08:43
APTT 29.1 Sec (23.4-35.0) 02/23/25 08:43
Sodium 133 mmol/L (135-145) L 02/25/25 08:26
Potassium 4.6 mmol/L (3.5-5.1) 02/25/25 08:26
BUN 58 mg/dl (9-20) H 02/25/25 08:26
Creatinine 1.8 mg/dL (0.7-1.3) H 02/25/25 08:26
Glucose 171 mg/dl (70-99) H 02/25/25 08:26
Vital Signs and I&O:
Vital Signs
Temp Pulse Resp BP Pulse Ox
97.4 F 60 16 127/59 95
02/25/25 11:00 02/25/25 11:00 02/25/25 11:00 02/25/25 11:00 02/25/25 11:00
Vital Signs
Temp Pulse Resp BP Pulse Ox
97.4 F 60 16 127/59 95
02/25/25 11:00 02/25/25 11:00 02/25/25 11:00 02/25/25 11:00 02/25/25 11:00
Intake & Output
02/23/25 02/24/25 02/25/25 02/26/25
06:59 06:59 06:59 06:59
Intake Total 730 / 730 1080 / 1080 660 / 660
Output Total 600 / 600 1000 / 1000 220 / 220
Balance 130 / 130 80 / 80 440 / 440
Physical Exam
Physical Exam
General: Well developed, well nourished in NAD.
Neck: Supple, no JVD, HJR, carotids +2 B/L, no bruits bilaterally.
Heart: Non displaced PMI, RRR, no murmurs, No S3, S4, no rubs.
Lungs: Clear to auscultation bilaterally, no wheeze, rhonchi, rubs bilaterally,
normal expiratory phase.
Extremities: No clubbing, cyanosis or edema bilaterally.
Neuro: Grossly nonfocal, awake, alert and oriented x3.
--- NOTE | 2025-02-25 13:42 | W.PN.HOSP.TC ---
Today's Communication/Plan
-
Assessment / Plan
Assessment / Plan
General: No Apparent Distress, Comfortable and Conversant
HEENT: NormoCephalic, Moist mucous membranes, Atraumatic
Respiratory: Clear and Non Labored Respirations
Cardiac: S1/S2 and Regular Rhythm; No Rub or Gallop
GI: Soft, mild TTP left inguinal surgical site, Non Distended and Normal Bowel Sounds
Musculoskeletal: No Edema, no deformity
Skin: Warm and dry
: No Rey
Neuro: Awake, Alert, Nonfocal/grossly intact
Psych: Calm and cooperative
Mr. 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
presented with abdominal pain and constipation. He was found to have incarcerated left inguinal hernia. He was brought to the OR on 02/23/2025 for reduction and repair of incarcerated left inguinal hernia with mesh.
Incarcerated left inguinal hernia:
- Status post reduction and repair with mesh on 02/23/2025
- Rey catheter removed, monitor for retention
- Diet advanced to regular
- Pain control as needed
ROLANDA on CKD stage IIIb:
- Renal function slightly worse over the past 2 days, possibly due to poor p.o. intake
- Holding Bumex and valsartan for now
- Will monitor renal function on repeat labs, give fluids cautiously if needed considering HFpEF
HFpEF:
- Appears euvolemic currently
- Holding Bumex and valsartan due to creatinine elevation from baseline, restart as able likely tomorrow 02/26
- Continuing spironolactone and Farxiga
- Beta-blockade with carvedilol 12.5 mg p.o. twice daily
- Afterload reduction with amlodipine 5 mg p.o. daily
- Appreciate cardiology input
COPD:
- Without acute exacerbation
- Continue scheduled inhalers, with nebulizers as needed for wheezing
CODE STATUS: Full code
Anticipated Discharge: 24 - 48 hours
Subjective/Interval History
-
Date of Service: February 25, 2025
Patient was seen and examined at bedside this morning. Feeling well with minimal abdominal soreness. He is relieved to have his Rey catheter out and his diet advanced.
Objective Data
-
Labs:
Laboratory Results
02/25/25
08:26
WBC 13.3 H
Hgb 12.5 L
Hct 38.5 L
Plt Count 170
Sodium 133 L
Potassium 4.6
Chloride 97 L
Carbon Dioxide 30
BUN 58 H
Creatinine 1.8 H
Glucose 171 H
Calcium 8.2 L
Vital Signs:
Vital Signs
Temp Pulse Resp BP Pulse Ox
97.4 F 60 16 127/59 95
02/25/25 11:00 02/25/25 11:00 02/25/25 11:00 02/25/25 11:00 02/25/25 11:00
I&O
02/24/25 02/25/25 02/26/25
06:59 06:59 06:59
Intake Total 730 / 730 1080 / 1080 660 / 660
Output Total 600 / 600 1000 / 1000 220 / 220
Balance 130 / 130 80 / 80 440 / 440
Review of Systems
-
History Source: Patient
All other systems: Reviewed and negative
Abdomen/GI: Reports Abdominal Pain
Physical Exam
-
General: No Apparent Distress
[2025-02-25 15:03] VITALS: BP 122/56
[2025-02-25] MEDS: TYLENOL 650 MG PO (17:30)
[2025-02-25 19:00] VITALS: BP 123/56
[2025-02-25] MEDS: MIRALAX 17 GRAMS PO (20:22)
[2025-02-25 23:19] VITALS: BP 132/63
[2025-02-25] MEDS: ZOLOFT 25 MG PO (23:20)
[2025-02-26 03:05] VITALS: BP 120/62
[2025-02-26 06:00] VITALS: BMI 24.9
[2025-02-26 06:24] LABS: % Basophils 0.4 % (0-2); % Eosinophils 1.2 % (0-6); % Immature Granulocytes 0.4 % (0-0.5); % Lymphocytes 26.7 % (20.5-51.1); % Monocytes 11.4 % (1.7-9.3); % Neutrophils 59.9 % (42.2-75.2); Absolute Eosinophils 0.1 10^3/uL (0-0.7); Absolute Lymphocytes 2.3 10^3/uL (1.2-3.4); Absolute Neutrophils 5.1 10^3/uL (1.4-6.5); Hematocrit 34.5 % (39.0-52.0); Hemoglobin 11.4 g/dL (13.0-18.0); Mean Corpuscular Hgb 28.1 pg (27.0-31.0); Mean Platelet Volume 10.9 fL (7.4-10.4); Nucleated Red Blood Cells % 0 % (-); Platelet Count 151 10^3/uL (130-400); Red Blood Cell Count 4.06 10^6/uL (4.70-6.10); Red Cell Dist. Width 14.8 % (11.5-14.5); White Blood Cell Count 8.5 10^3/uL (4.8-10.8)
[2025-02-26 06:50] LABS: Blood Urea Nitrogen 62 mg/dl (9-20); Calcium 8.1 mg/dl (8.4-10.2); Carbon Dioxide 28 mmol/L (22-30); Chloride 100 mmol/L (98-107); Estimated Creatinine Clearance 32 ml/min; Glucose 114 mg/dl (70-99); Potassium 4.5 mmol/L (3.5-5.1); Sodium 134 mmol/L (135-145); eGFR 39.75
[2025-02-26 08:00] VITALS: BP 145/68
[2025-02-26] MEDS: SPIRIVA RESPIMAT 2.5 MCG 2 PUFF INH (08:06)
[2025-02-26] MEDS: SYMBICORT 80/4.5 MCG INHALER 2 PUFF INH (08:07)
--- NOTE | 2025-02-26 08:59 | W.PN.CRS1 ---
Today's Communication / Plan
-
okay for d/c from a surgical perspective
f/u in 2 weeks
Assessment/Plan
-
POD#3 Incarcerated direct left inguinal hernia
Vitals normal
WBC 8.5 (13.3)
-OOB as tolerated
-Continue egular diet
-On heparin sq for DVT prophylaxis. TEDS/SCDS.
-Voiding post barcenas removal
-Pain control: Tylenol/Oxycodone/Dilaudid PRN
-Okay for discharge from a surgical standpoint. Follow up in the office with Dr. Bond in 2 weeks.
Subjective Data
Procedure
02/23/2025- Incarcerated direct left inguinal hernia
Subjective Data
Date of Service: February 26, 2025
Patient states he feels well. He has no complaints. He had two bowel movements since yesterday. Denies nausea or vomiting. Urinating without difficulty.
Objective Data
-
Vital Signs
Temp Pulse Resp BP Pulse Ox
97.9 F 58 16 145/68 95
02/26/25 08:00 02/26/25 08:08 02/26/25 08:08 02/26/25 08:00 02/26/25 08:08
Intake & Output
02/25/25 02/26/25 02/27/25
06:59 06:59 06:59
Intake Total 1080 / 1080 1859 / 1859
Output Total 1000 / 1000 820 / 820
Balance 80 / 80 1040 / 1040
Intake:
Oral fluids 1080 / 1080 1859 / 1859
Output:
Urine, Barcenas 1000 / 1000
Urine, Voided 820 / 820
Other:
Number of approximated SMALL 1
amounts of urine
Lab Results
02/26/25 05:13
02/26/25 05:13
Physical Exam
-
General: No Acute Distress and AOx3
Abdomen: Soft, Non Distended and Non Tender
Incision: Clear, Dry, Intact
--- NOTE | 2025-02-26 09:41 | W.PN.CARDCBS ---
Addendum entered and electronically signed by Marlon Whyte MD 02/26/25 10:13:
I saw and examined the patient.
The TRIPLE VALVE TESTER or PA's note was reviewed and I agree with the note.
Comment: General: Well developed, well nourished in NAD.
Neck: Supple, no JVD, HJR, carotids +2 B/L, no bruits bilaterally.
Heart: Non displaced PMI, RRR, no murmurs, No S3, S4, no rubs.
Lungs: Scattered rhonchi
Extremities: No clubbing, cyanosis or edema bilaterally.
Neuro: Grossly nonfocal, awake, alert and oriented x3.
Stable cardiology status for discharge. Will resume Bumex 2 mg daily and check renal profile in 1 week.
Original Note:
Today's Communication / Plan
-
follow Cr, baseline ~1.4
check proBNP
DC planning
Impression / Plan
-
Primary Mold Maker: Dr. Elizondo
Impression:
Incarcerated L inguinal hernia
s/p emergency L inguinal hernia repair 02/23/2025
ROLANDA on CKD 3
Chronic HFpEF
Atrial tachycardia
Moderate MR
PAD, abnormal L IVAN, mod to severe claudication
HTN
HLD
GERD
COPD with chronic home O2
Hernia
Anemia
Hypoalbuminemia
ECHO 10/21/24: EF 60 to 65%, mild concentric LVH, stage III diastolic dysfunction, moderately dilated atria, mild MAC, moderate MR, mild TR, PAP 52 mmHg, ascending aorta top normal at 3.7 cm
RHC 11/25/2024: RA 15, RV 47/8, PA 46/21, wedge 23 with V waves to 38, cardiac index 2.9
Plan:
-doing well s/p emergency L inguinal hernia repair 02/23/2025
-OP bumex and valsartan on hold as Cr uptrended to 1.8 on 02/25. Cr 1.7 on 02/26. placed OP spironolactone on hold as well today. appears by recent OP bloodwork that baseline Cr ~1.4.
-continue OP coreg, farxiga, hydralazine.
-weights remain stable since admission. will need to determine bumex dosing for DC, was on 2mg BID prior to admission. check proBNP
-tolerating diet. continue post op care
-ambulate
-DC planning
-will arrange OP cardiac follow up
Progress Note - Mold Maker
Subjective
Date of Service: February 26, 2025
doing well. no complaints.
Objective
Labs:
02/26/25 05:13
02/26/25 05:13
Labs
Hgb 11.4 g/dL (13.0-18.0) L 02/26/25 05:13
Hct 34.5 % (39.0-52.0) L 02/26/25 05:13
Plt Count 151 10^3/uL (130-400) 02/26/25 05:13
PT 13.2 Sec (11.4-14.6) 02/23/25 08:43
INR 0.97 02/23/25 08:43
APTT 29.1 Sec (23.4-35.0) 02/23/25 08:43
Sodium 134 mmol/L (135-145) L 02/26/25 05:13
Potassium 4.5 mmol/L (3.5-5.1) 02/26/25 05:13
BUN 62 mg/dl (9-20) H 02/26/25 05:13
Creatinine 1.7 mg/dL (0.7-1.3) H 02/26/25 05:13
Glucose 114 mg/dl (70-99) H 02/26/25 05:13
Vital Signs and I&O:
Vital Signs
Temp Pulse Resp BP Pulse Ox
97.9 F 58 16 145/68 95
02/26/25 08:00 02/26/25 08:08 02/26/25 08:08 02/26/25 08:00 02/26/25 08:08
Vital Signs
Temp Pulse Resp BP Pulse Ox
97.9 F 58 16 145/68 95
02/26/25 08:00 02/26/25 08:08 02/26/25 08:08 02/26/25 08:00 02/26/25 08:08
Intake & Output
02/24/25 02/25/25 02/26/25 02/27/25
07:59 07:59 07:59 07:59
Intake Total 730 / 730 1080 / 1080 1860 / 1860
Output Total 600 / 600 1000 / 1000 820 / 820
Balance 130 / 130 80 / 80 1040 / 1040
Physical Exam
Physical Exam
GEN: No distress, awake, alert, oriented x3. sitting in chair
HEENT: supple, anicteric, mmm, eomi
LUNGS: CTA B/L, no wheezes
CV: Reg, S1/S2, 1/6 murmur
ABD: soft, BS+, NT/ND
EXT: No cyanosis, clubbing. 1+ edema of B/L ankles
NEURO: Gross non-focal
SKIN: Warm, pink, dry. No rash
[2025-02-26] MEDS: HEPARIN 5000 UNITS SC (09:50)
[2025-02-26] MEDS: PLETAL 100 MG PO (09:50)
[2025-02-26] MEDS: ALDACTONE PO (09:50)
[2025-02-26] MEDS: APRESOLINE 25 MG PO (09:50)
[2025-02-26] MEDS: FARXIGA 10 MG PO (09:50)
[2025-02-26] MEDS: PROTONIX 20 MG PO (09:50)
[2025-02-26] MEDS: COREG 12.5 MG PO (09:50)
[2025-02-26] MEDS: NORVASC 5 MG PO (09:50)
--- NOTE | 2025-02-26 10:42 | CM ---
Addendum entered by NANCIE Childers 02/26/25 12:54:
Spoke with attending who stated that patient is medically cleared for discharge. Call was placed to Annel at [facility] who confirmed that she will call patient this afternoon. Will send updated clinical. Spoke with patient's daughter, Winifred. Reviewed
IMM. She stated that patient's son will transfer home.
Original Note:
Received call from Annel from [facility]. She stated that patient is current with them and asked for updated referral prior to him leaving. She stated that they will be out to see patient, right after discharge.
Plan: Case management will continue to follow and assist with discharge planning. Home with [facility] when medically cleared.
[2025-02-26 11:01] VITALS: BP 134/63; PULSE 59; O2SAT 96
--- NOTE | 2025-02-26 11:05 | PTOTSP ---
Pt is able to get in and out of bed, transfer, toilet, and ambulate without an assistive device unassisted. Ok for dc to home from PT standpoint. Lee sign off.
[2025-02-26 11:50] LABS: NT-proBNP 2160 pg/ml
--- NOTE | 2025-02-26 13:05 | W.DCSUMMARY ---
Discharge Summary
Discharge Data
Date of Admission: 02/23/25
Date of Discharge: 02/26/25
-
Pending Results: No
Hospital Course
Mr. 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
presented with abdominal pain and constipation. He was found to have incarcerated left inguinal hernia. He was brought to the OR on 02/23/2025 for reduction and repair of incarcerated left inguinal hernia with mesh. He tolerated the procedure
well. Rey catheter was removed postoperatively and he was able to void spontaneously. He was able to move his bowels and tolerated p.o. diet.
He developed a mild ROLANDA on CKD postoperatively. His Bumex and valsartan were temporarily held. His spironolactone was also held due to mildly elevated serum potassium level. His renal function and potassium levels improved. He was evaluated by
cardiology and his home Bumex 2 mg p.o. twice daily was resumed at discharge. He should continue to hold his valsartan and spironolactone until follow-up with his primary care physician or well service pump equipment operator. He should have repeat blood work in 1 week
to monitor his renal function and serum potassium level. He was medically stable at time of hospital discharge.
General: No Apparent Distress, Comfortable and Conversant
HEENT: NormoCephalic, Moist mucous membranes, Atraumatic
Respiratory: Clear and Non Labored Respirations
Cardiac: S1/S2 and Regular Rhythm; No Rub or Gallop
GI: Soft, mild TTP left inguinal surgical site, Non Distended and Normal Bowel Sounds
Musculoskeletal: No Edema, no deformity
Skin: Warm and dry
: No Rey
Neuro: Awake, Alert, Nonfocal/grossly intact
Psych: Calm and cooperative
More than 30 minutes spent in discharge including
Final examination of the patient
Summarizing hospital stay
Instructions for continuing care to all relevant caregivers
Preparation of discharge records, prescriptions, and referral forms
Total time spent (in minutes): 50
Discharge Plan
-
Patient Disposition: Prison/SNF
Discharge Diagnosis/Procedures: Incarcerated direct left inguinal hernia
Diet: Low Sodium and Restrict fluids to 48 oz
Activity: No strenuous activity
Additional Activity: Do not lift over 10lbs (gallon of milk) for 4-6 weeks
Driving Restrictions: No driving if using a narcotic.
Bathing Restrictions: OK to Shower
Blood Work: BMP in 1 week
Other Services: VN
Wound Care: Allow the glue to flake off your incision on its own over the next 2-3 weeks. Ok to shower but avoid soaking in pools or tubs.
Specialty Instructions: Weigh Daily- Call MD for wt gain/loss 3 lbs overnight/5 lbs in 1 week
Activity Restrictions/Additional Instructions:
Avoid straining to have bowel movements, take stool softeners as needed.
You can apply ice packs as needed for pain and swelling at the site of your hernia, do not leave ice pack on for longer than 20 minutes.
Mr. 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
presented with abdominal pain and constipation. He was found to have incarcerated left inguinal hernia. He was brought to the OR on 02/23/2025 for reduction and repair of incarcerated left inguinal hernia with mesh. He tolerated the procedure
well. Rey catheter was removed postoperatively and he was able to void spontaneously. He was able to move his bowels and tolerated p.o. diet.
He developed a mild ROLANDA on CKD postoperatively. His Bumex and valsartan were temporarily held. His spironolactone was also held due to mildly elevated serum potassium level. His renal function and potassium levels improved. He was evaluated by
cardiology and his home Bumex 2 mg p.o. twice daily was resumed at discharge. He should continue to hold his valsartan and spironolactone until follow-up with his primary care physician or well service pump equipment operator. He should have repeat blood work in 1 week
to monitor his renal function and serum potassium level. He was medically stable at time of hospital discharge.
Instructions: *[facility] Heart Failure Instructions
Referrals:
Abad Chung Jr., DO [Family Provider] -
Nathen Bond MD [Active] - in two to four weeks
Yue Rose PA-C [Specified Professional Personl] - 03/06/25 2:00 pm (You have a cardiology follow-up appointment at the [place] office with Dr. Mendes's physician web marketing assistant, Yue. Please call with questions)
Additional Discharge Medication Instructions: Tylenol as needed for pain. Maximum dose of Tylenol is 4,000mg in 24 hours. A narcotic has also been prescribed to use as needed. Do not drive while using narcotics.
Prescriptions:
New
oxycodone 5 mg tablet
5 mg PO Q6H PRN (Reason: Pain) Qty: 20 0RF
Continued
cilostazol 100 mg Tablet
100 mg PO BID
amlodipine [Norvasc] 5 mg Tablet
5 mg PO DAILY
sertraline 25 mg Tablet
25 mg PO HS
Refresh Optive 0.5-0.9 % Drops
1 drp BOTH EYES TID
Rx Instructions:
prn
omeprazole 20 mg Tablet,Delayed Release (Dr/Ec)
20 mg PO DAILY
Trelegy Ellipta 100-62.5-25 mcg Blister With Device
1 inh INHALATION R DAILY
hydralazine 25 mg Tablet
25 mg PO BID Qty: 60 1RF
carvedilol 12.5 mg Tablet
12.5 mg PO BID Qty: 60 0RF
bumetanide 2 mg Tablet
2 mg PO BID@0800,1600 Qty: 60 0RF
dapagliflozin propanediol 10 mg Tablet
10 mg PO DAILY Qty: 30 0RF
Held
valsartan 160 mg Tablet
160 mg PO DAILY Qty: 30 1RF
Hold Instructions: Hold until repeat blood work to monitor renal function and potassium level
spironolactone 25 mg Tablet
12.5 mg PO DAILY Qty: 30 0RF
Hold Instructions: Hold until repeat blood work to monitor renal function and potassium levels.
Discharge Orders:
Discharge Patient (As Directed); Ordered 02/26/25
Ordered By: Damian Peña
Discharge Date and Time
Print Language: URUGUAYAN
[2025-02-26 13:41] VITALS: BP 113/51
== END 2025-02-26 15:16 | disposition home health service (06) | DRG 351 ==
LOC: 2 SOUTH 11:13
PROVIDERS: ADMITTING PHYSICIAN Internal Medicine; ATTENDING PHYSICIAN Internal Medicine; CONSULT PHYSICIAN Internal Medicine Cardiovascular Disease; CONSULT PHYSICIAN Surgery; EMERGENCY PHYSICIAN Emergency Medicine; FAMILY PHYSICIAN Family Medicine
PROC: 0YU60JZ Supplement Left Inguinal Region with Synthetic Substitute, Open Approach (ICD-10-PCS; 2025-02-23)
DX: K40.30 Unilateral inguinal hernia, with obstruction, without gangrene, not specified as recurrent (principal); I13.0 Hypertensive heart and chronic kidney disease with heart failure and stage 1 through stage 4 chronic kidney disease, or unspecified chronic kidney disease; I50.32 Chronic diastolic (congestive) heart failure; N17.9 Acute kidney failure, unspecified; I47.19 Other supraventricular tachycardia; N18.32 Chronic kidney disease, stage 3b; J44.9 Chronic obstructive pulmonary disease, unspecified; E78.5 Hyperlipidemia, unspecified; I27.20 Pulmonary hypertension, unspecified; I73.9 Peripheral vascular disease, unspecified; D50.9 Iron deficiency anemia, unspecified; K59.00 Constipation, unspecified; K21.9 Gastro-esophageal reflux disease without esophagitis; E88.09 Other disorders of plasma-protein metabolism, not elsewhere classified; I34.0 Nonrheumatic mitral (valve) insufficiency; D72.829 Elevated white blood cell count, unspecified; F41.9 Anxiety disorder, unspecified; Z87.891 Personal history of nicotine dependence
CPT/HCPCS: 71045; 74018; 80048; 80053; 83605; 83880; 85025; 85610; 85730; 86850; 86900; 86901; 93005; 94640; 96374; 96375; 96376; 97162; 97530; 99285; C1781; C1894; J1335

== ENCOUNTER → 2025-04-10 15:00 | Outpatient (REF) | payer MEDICARE, SELFPAY ==
[2025-04-10 16:43] LABS: Blood Urea Nitrogen 44 mg/dl (9-20); Calcium 8.3 mg/dl (8.4-10.2); Carbon Dioxide 29 mmol/L (22-30); Glucose 92 mg/dl (70-99); eGFR 54.85
[2025-04-10 16:50] LABS: Chloride 106 mmol/L (98-107); Potassium 4.9 mmol/L (3.5-5.1); Sodium 137 mmol/L (135-145)
== END ==
LOC: RCS 15:00
PROVIDERS: ATTENDING PHYSICIAN Internal Medicine Cardiovascular Disease; FAMILY PHYSICIAN Family Medicine; REFERRING PHYSICIAN Physician Assistant
DX: I50.32 Chronic diastolic (congestive) heart failure (principal)
CPT/HCPCS: 36415; 80048; 93306

== ENCOUNTER → 2025-05-29 06:56 | Outpatient (REF) | payer MEDICARE, SELFPAY ==
[2025-05-29 07:20] LABS: Hematocrit 38.8 % (39.0-52.0); Hemoglobin 12.4 g/dL (13.0-18.0); Mean Corp Hgb Conc. 32.0 g/dL (33.0-37.0); Mean Corpuscular Volume 86.4 fL (80.0-94.0); Platelet Count 188 10^3/uL (130-400); Red Cell Dist. Width 15.3 % (11.5-14.5)
[2025-05-29 07:30] LABS: INR 0.91; PT 12.7 Sec (11.4-14.6)
[2025-05-29 07:45] VITALS: BP 194/79; BP_SYST 49
[2025-05-29] MEDS: APRESOLINE 10 MG IV (08:10)
[2025-05-29 08:57] LABS: Blood Urea Nitrogen 52 mg/dl (9-20); Calcium 8.4 mg/dl (8.4-10.2); Carbon Dioxide 30 mmol/L (22-30); Chloride 107 mmol/L (98-107); Glucose 109 mg/dl (70-99); Potassium 4.8 mmol/L (3.5-5.1); Sodium 138 mmol/L (135-145); eGFR 46.19
[2025-05-29 09:00] VITALS: BP 164/67
== END ==
LOC: RADI 06:56
PROVIDERS: ATTENDING PHYSICIAN Specialist; FAMILY PHYSICIAN Physician Assistant
DX: N04.9 Nephrotic syndrome with unspecified morphologic changes (principal); Z53.8 Procedure and treatment not carried out for other reasons; Z79.01 Long term (current) use of anticoagulants
CPT/HCPCS: 36415; 80048; 85027; 85610

== ENCOUNTER 2025-06-17 08:46 | Outpatient (REF) | payer MEDICARE, SELFPAY ==
[2025-06-17] VITALS (28 sets, daily range): BP systolic 48–179; BP diastolic 48–84; BMI 26.3
[2025-06-17 09:16] LABS: Hematocrit 39.6 % (39.0-52.0); Hemoglobin 12.4 g/dL (13.0-18.0); Mean Corp Hgb Conc. 31.3 g/dL (33.0-37.0); Mean Corpuscular Volume 87.6 fL (80.0-94.0); Nucleated Red Blood Cells % 0 % (-); Platelet Count 168 10^3/uL (130-400); Red Cell Dist. Width 15.3 % (11.5-14.5)
[2025-06-17 09:25] LABS: INR 0.95; PT 12.9 Sec (11.4-14.6)
[2025-06-17 09:55] LABS: Blood Urea Nitrogen 51 mg/dl (9-20); Calcium 8.1 mg/dl (8.4-10.2); Carbon Dioxide 28 mmol/L (22-30); Chloride 108 mmol/L (98-107); Estimated Creatinine Clearance 34 ml/min; Glucose 113 mg/dl (70-99); Potassium 5.2 mmol/L (3.5-5.1); Sodium 136 mmol/L (135-145); eGFR 39.75
[2025-06-17] MEDS: APRESOLINE 5 MG IV ×2 (10:10→11:05)
--- NOTE | 2025-06-17 14:11 | PTCARENOTE ---
Report given to Susanna PATINO.
[2025-06-17 16:56] LABS: Hematocrit 36.1 % (39.0-52.0); Hemoglobin 11.5 g/dL (13.0-18.0)
--- NOTE | 2025-06-17 19:17 | PTCARENOTE ---
assumed care of patient at 1340 from [facility]. pt was on room air with O2 sats 91-93%. started becoming more and more short of breath with audible wheezing. notified joelle lawler and dr smith and was instructed to sit patient up a little further than
the ordered 30 degrees or less to see if that helps. O2 sats starting to dip into the high 80's and began to use accessory muscles and pursed lip breathing. placed the patient on 2L NC and sats improved to 95-97% and patient became more
comfortable.
moved patient closer to front of nurses station where monitors are to keep a closer eye on him. placed on monitor. patient slept comfortably for the next 2-3 hours on 2L NC and sats remained 95-97%.
pt to be discharged around 1830. prior to doing so, trialed off O2. within minutes on room air, patient sats 87-88% and very short of breath. called family to see if they could bring his home O2 for transport home. they had already arrived at the
hospital. notified dr smith as this RN did not feel comfortable with sending him home this SOB. he recommended the family take him to ER if they were not comfortable. family said this labored breathing was baseline for him. we dressed patient and
got him to the car on 4L NC. family stated they had a ~20 min ride home and would get him on his O2 as soon as they got to the house. discharged patient to home at 1930. instructed family to take him to ER if breathing did not improve, verbalized
understanding.
== END 2025-06-17 19:39 | disposition home or self-care (01) ==
LOC: RADI 08:46
PROVIDERS: ATTENDING PHYSICIAN Specialist; FAMILY PHYSICIAN Family Medicine; REFERRING PHYSICIAN Physician Assistant
DX: I12.9 Hypertensive chronic kidney disease with stage 1 through stage 4 chronic kidney disease, or unspecified chronic kidney disease (principal); N18.31 Chronic kidney disease, stage 3a
CPT/HCPCS: 50200; 36415; 76942; 80048; 85014; 85018; 85025; 85610; 88305; 99152; 99153

== ENCOUNTER 2025-06-20 14:43 | Inpatient (IN) | payer MEDICARE, SELFPAY ==
[2025-06-20] VITALS (12 sets, daily range): BP systolic 136–193; BP diastolic 58–106; BMI 25.8
[2025-06-20 11:41] LABS: Hematocrit 35.9 % (39.0-52.0); Hemoglobin 11.2 g/dL (13.0-18.0); Mean Corp Hgb Conc. 31.2 g/dL (33.0-37.0); Mean Corpuscular Volume 86.7 fL (80.0-94.0); Nucleated Red Blood Cells % 0 % (-); Platelet Count 167 10^3/uL (130-400); Red Cell Dist. Width 15.4 % (11.5-14.5)
[2025-06-20 11:59] LABS: Troponin I 0.015 ng/ml
[2025-06-20 12:00] LABS: ALT (SGPT) 13 U/L (0-50); AST (SGOT) 22 U/L (17-59); Albumin 2.2 g/dl (3.5-5.0); Alkaline Phosphatase 114 U/L (38-126); Blood Urea Nitrogen 55 mg/dl (9-20); Calcium 7.8 mg/dl (8.4-10.2); Carbon Dioxide 27 mmol/L (22-30); Chloride 110 mmol/L (98-107); Glucose 112 mg/dl (70-99); Potassium 4.4 mmol/L (3.5-5.1); Sodium 138 mmol/L (135-145); Total Protein 5.2 g/dl (6.3-8.2); eGFR 42.75
--- NOTE | 2025-06-20 12:05 | W.CON.NEPH ---
Consultation
-
Date/Time Consultation Requested: 06/20/2025 12:00
Date/Time Consultation Performed: 06/20/2025 12:00
Requesting Provider: Dr. Ro
Performing Provider: Dr. Lechuga
Reason for Consultation: Chronic kidney disease/nephrotic syndrome/congestive heart failure
Medical History
-
Chief Complaint: Congestive heart failure/membranous nephropathy/chronic kidney disease
History of Present Illness:
The patient is a 84-year-old M with PMHx ofg HLD, HTN (on amlodipine,carvedilol, hydralazine, and aldactone) , with CHF maintained on Bumex. He has a history of COPD/ILD (maintained on Trelegy ), and CKD 3b with baseline creaitnine around 1.6.who
presented on 11/14/24 with worsening LE edema and SOB. Pt has had worsening LE edema as well as his hands/and wrists since he was recently discharged here on 11/05/2024. He has had profound hypoalbuminemia and a urine protein to creatinine ratio at
that time had been obtained and was 7.6 g on 11/02/24. His creatinine remained stable at 1.1 but most recent urinalysis from 10/31/2024 revealed 3+ blood as well as 2+ albumin in the aforementioned elevated protein to creatinine ratio. He was
admitted with acute on chronic congestive heart failure exacerbation and diuresed with IV Lasix. We had seen the patient in consultation as he was noted to have nephrotic range proteinuria. The patient was then readmitted in February 2025 for repair
of incarcerated left inguinal hernia. He developed acute kidney injury postoperatively and his Bumex and valsartan were temporarily held. He was then resumed on Bumex at discharge but his valsartan was held. He was seen in the outpatient office of
our nephrology clinic by myself and it was decided after his follow-up visit and it was decided that we would pursue forward with renal biopsy. He underwent his renal biopsy on 06/17/2025. 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 His anti-PLA2R was negative (testing for primary variant of membranous nephropathy. The patient Genevieve presented to the hospital earlier
today for increasing shortness of breath and edema despite escalation of outpatient Bumex. Nephrology was asked to see the patient for his membranous nephropathy in the setting of his volume overload and chronic kidney disease.
Past Medical History
Acute HFpEF
Nephrotic syndrome (newly diagnosed as membranous nephropathy by renal biopsy on 06/17/2025)
Atrial tachycardia
Moderate MR
CKD
PAD, abnormal L IVAN, mod to severe claudication
HTN
HLD
GERD
COPD/ILD: chronically O2 dependent
Moderate MR with pulmonary hypertension
CKD with creatinine of 1.6
Hernia
Anemia
Hypoalbuminemia
Social History
Alcohol: Occasional
Drug: None
Family History
no CKD
Allergies / Home Medications
Allergy/AdvReac Type Severity Reaction Status Date / Time
No Known Allergies Allergy Verified 06/20/25 10:35
�Medication �Instructions �Recorded �Confirmed �Type
amlodipine 5 mg tablet (Norvasc) 5 mg PO DAILY Blood Pressure 10/31/24 06/17/25 History
carboxymethylcellulose 0.5 1 drp BOTH EYES TID Eye Condition 10/31/24 06/17/25 History
%-glycerin 0.9 % eye drops
(Refresh Optive)
cilostazol 100 mg tablet 100 mg PO BID Blood Clot 10/31/24 06/17/25 History
Prevention/Tx
fluticasone fur. 100 mcg-umeclid 1 inh inhalation R DAILY 10/31/24 06/17/25 History
62.5 mcg-vilant 25 mcg Lung/Breathing Issues
inhalat.powder (Trelegy Ellipta)
omeprazole 20 mg tablet,delayed 20 mg PO DAILY Gastrointestinal 10/31/24 06/17/25 History
release Issue
sertraline 25 mg tablet 25 mg PO HS Depression 10/31/24 06/17/25 History
hydralazine 25 mg tablet 25 mg PO BID #60 tabs 11/05/24 06/17/25 Rx
bumetanide 2 mg tablet 2 mg PO BID@0800,1600 #60 tabs 11/27/24 06/17/25 Rx
carvedilol 12.5 mg tablet 12.5 mg PO BID #60 tabs 11/27/24 06/17/25 Rx
dapagliflozin propanediol 10 mg 10 mg PO DAILY #30 tabs 11/27/24 06/17/25 Rx
tablet
oxycodone 5 mg tablet 5 mg PO Q6H PRN Pain #20 tabs 02/25/25 06/17/25 Rx
aspirin 81 mg tablet 81 mg PO DAILY 06/16/25 06/17/25 History
spironolactone 25 mg tablet 12.5 mg PO Q48H 06/17/25 06/17/25 History
Review of Systems
-
History Source: Patient
All other systems: Negative unless noted
Constitutional: Fatigue
Respiratory: Trouble Breathing
: No Symptoms
Musculoskeletal: Edema (2+ pitting pretibial edema)
Skin: No Symptoms
Neurological: No Symptoms
Endocrine: No Symptoms
Physical Exam
Vital Signs
Vital Signs
Temp Pulse Resp BP Pulse Ox
98.4 F 50 16 151/63 98
06/20/25 10:36 06/20/25 11:30 06/20/25 12:04 06/20/25 11:02 06/20/25 11:30
Lab Results
06/20/25 11:20
06/20/25 11:20
WBC 7.9 10^3/uL (4.8-10.8) 06/20/25 11:20
RBC 4.14 10^6/uL (4.70-6.10) L 06/20/25 11:20
Hgb 11.2 g/dL (13.0-18.0) L 06/20/25 11:20
Hct 35.9 % (39.0-52.0) L 06/20/25 11:20
Plt Count 167 10^3/uL (130-400) 06/20/25 11:20
Sodium 138 mmol/L (135-145) 06/20/25 11:20
Potassium 4.4 mmol/L (3.5-5.1) 06/20/25 11:20
Chloride 110 mmol/L (98-107) H 06/20/25 11:20
Carbon Dioxide 27 mmol/L (22-30) 06/20/25 11:20
BUN 55 mg/dl (9-20) H 06/20/25 11:20
Creatinine 1.6 mg/dL (0.7-1.3) H 06/20/25 11:20
eGFR 42.75 06/20/25 11:20
Glucose 112 mg/dl (70-99) H 06/20/25 11:20
Calcium 7.8 mg/dl (8.4-10.2) L 06/20/25 11:20
Aon-P-Bxjsvrfrqca Pept 5540 pg/ml 06/20/25 11:20
Albumin 2.2 g/dl (3.5-5.0) L 06/20/25 11:20
Physical Exam
General: AOx3, Nontoxic , NAD
HEENT: PERRL, EOMI, Anicteric, Conjunctivae Clear, Ear/Nose Intact, Hearing Normal, Oropharynx Clear/Moist, Dentition Intact, Facial Symmetry, Neck Supple, Neck: Trachea Midline, No JVD and No Thyromegaly, no Bruits, on NC 02
Respiratory: Crackles bilaterally to auscultation with normal lung excursion, decreased breath sounds at bases
Cardiac: S1/S2 and Regular Rate/Rhythm
Breast: Deferred by me
Abdomen: Soft, Nontender, Nondistended, Normal Bowel Sounds and No Hepatosplenomegaly
Rectal: Deferred by Provider
Genito-urinary: No Costovertebral Tenderness
Extremities: No Clubbing, No Cyanosis and 2+ pitting pretibial edema
Skin: No Rash or open lesions
Neuro: Nonfocal/Grossly Intact, CN II-XII (Intact) and Strength (Musculoskeletal exam 5 out of 5 both upper and lower extremities), no asterixis
Hematologic/Lymphatic: No Cervical Lymphadenopathy, No Submandibular Lymphadenopathy and No Supraclavicular Lymphadenopathy
Psych: Mood/afflect pleasant, Insight/judgement good and Appropriate
Vascular: plus 1 pedal and radial pulses
Data Reviewed
-
Radiology: Image Personally Visualized and interpreted (Chest x-ray personally reviewed by myself notable for bilateral pulmonary edema)
Medical Tests (Nuc Med, Echo etc): Other (EKG reviewed junctional rhythm with nonspecific T wave abnormality at 49 bpm per report)
Labs: Labs Reviewed by me (BMP CBC)
Old Records: Reviewed (Reviewed previous nephrology consultation from date November 20, 2024: Re: Nephrotic syndrome, creatinine 1.5 per review in EMR from date 05/29/2025)
Assessment/Plan
-
Impression:
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
Decompensated congestive heart failure: Likely secondary to renal failure
History of HFpEF
Pulmonary hypertension
History of recent incarcerated left inguinal hernia repair on 02/23/2025
Anemia
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
CKD (1.6): Renal ultrasound notes bilateral renal cysts no hydronephrosis normal size kidneys)
History of hypertension
History of pulmonary hypertension
History of moderate MR
PAD with moderate to severe claudication
Plan:
-The patient is clinically volume overloaded and requires high-dose IV diuretics at 80 mg IV twice daily in the setting of decompensated congestive heart failure due to nephrotic syndrome
-I would also check postvoid bladder scans to assure there is no obstructive component to his diuresis
-His creatinine is actually within his baseline at this time in regards to his CKD
-I had a discussion last evening with the nephro pathologist from [facility] in regards to the patient's renal biopsy that he underwent on 06/17/2025. The patient's biopsy report was consistent with membranous nephropathy. The patient's
anti-PLA2R antibody however has been negative and henceforth it appears that this may be a secondary variant of membranous nephropathy. Secondary membranous nephropathy can be attributed to underlying malignancies and henceforth we will have to
pursue more full malignancy workup. I will also include hepatitis and cryoglobulin serologies. The patient reportedly has had a recent colonoscopy which was negative.
- We should obtain a PSA, none IV contrast CT of chest abdomen and pelvis, and dysproteinemia workup which would include SPEP, BEA, serum free light chain kappa lambda ratio, hepatitis serology, cryoglobulin
- I spoke with the patient's son today that if we would fail with IV diuretics then we may need to proceed forward with dialysis
- If in fact no secondary causality can be obtained I would then consider treating this as a primary variant with rituximab
- Maintain current antihypertensive regimen
--- NOTE | 2025-06-20 12:27 | ED.GENMED ---
History of Present Illness
General
Chief Complaint: Breathing Problem
Source: patient, spouse and family
Exam Limitations: none
Time Seen by Provider: 06/20/25 10:59
Nursing documentation reviewed up to this point in time: agreed with
History of Present Illness
History of Present Illness:
Note:
CHIEF COMPLAINT(S)
Difficulty breathing and fluid retention.
HISTORY OF PRESENT ILLNESS
The patient is an 84-year-old male who presents with difficulty breathing and increased swelling. Two days ago, he underwent a kidney biopsy due to impaired renal function, and it was to determine if steroids are indicated for treatment. Since the
procedure, the patient has gained five pounds and is experiencing more swelling than usual. Notably, redness that was usually present is now absent. He has been retaining fluid, with suspected pulmonary edema, as he reportedly has 'fluid in his
lungs.' The patient usually does not require supplemental oxygen; however, he has been using it continuously over the past couple of days and is currently on three liters via nasal cannula. The plan involves keeping him hospitalized for further
evaluation and management, including fluid removal as needed. The nephrology team has been made aware of the hospitalization, and the plan includes consulting with them.
PAST MEDICAL AND SURGICAL HISTORY
Recent kidney biopsy to assess renal dysfunction and potential use of steroids.
CHRONIC MEDICAL CONDITIONS SIGNIFICANTLY AFFECTING CARE
Chronic kidney dysfunction.
MEDICATIONS
The patient is on Furosemide (Lasix), taking one pill in the morning and one at night. There was also a mention of Bumetanide (Bumex) as part of his medication regimen.
REVIEW OF SYSTEMS
- Respiratory: Difficulty breathing, recent increased need for oxygen supplementation.
- Cardiovascular: Recent weight gain of five pounds, edema, suspected fluid retention in lungs.
- Renal: Recent kidney biopsy for dysfunction evaluation.
PHYSICAL EXAM
General: Alert, no acute distress.
Skin: Warm, dry.
Head: Normocephalic, atraumatic.
Neck: Supple, trachea midline.
Eye, Ears, Nose, and Tongue: Oral mucosa moist.
Cardiovascular: Normal peripheral perfusion, bilateral pedal edema noted.
Respiratory: Respirations are non-labored, currently on three liters of oxygen, rales bilaterally
Gastrointestinal: Abdomen nondistended.
Back: Normal range of motion, normal alignment.
Musculoskeletal: Normal ROM, normal strength. edema b/l LE
Neurological: Alert and oriented to person, place, time, and situation, no focal neurological deficit observed.
Psychiatric: Cooperative, appropriate mood & affect.
PROBLEM LIST
Acute Problems:
1. Difficulty breathing
2. Pulmonary edema
Chronic Problems:
1. Chronic kidney dysfunction
PLAN
1. Hospitalization for further monitoring and treatment.
2. Obtain chest x-ray and laboratory work to assess fluid status and kidney function.
3. Consult with cardiology to manage fluid overload and assess cardiovascular status.
4. Diuretic therapy with Furosemide (Lasix) was reviewed; evaluate the possibility of increasing dose or adjusting regimen as needed.
DIFFERENTIAL DIAGNOSIS
The Differential Diagnosis includes, in no particular order and is not limited to:
1. Congestive heart failure
2. Acute kidney injury
3. Chronic kidney disease
4. Pulmonary edema
5. Nephrotic syndrome
6. Volume overload secondary to renal insufficiency
7. Respiratory infection
8. Pleural effusion
9. Cardiac arrhythmia
10. Pulmonary embolism
CARE-UPDATE
06/20/25 - 12:30
The patient, an 84-year-old male with CHF exacerbation and cardiorenal syndrome, has received 80 mg IV Lasix. He has been reviewed by nephrology, who concurred with the Lasix dosage at 80 mg. The decision has been made to admit the patient under the
care of the hospitalist for further monitoring and management.
EKG
My independent EKG interpretation is:
- Rhythm: Sinus rhythm
- Heart Rate: Bradycardia
- T-wave: Non-specific abnormality
No Heading
[object Object]
Disposition:
SUMMARY OF ENCOUNTER
The patient, an 84-year-old male, presented with difficulty breathing and increased swelling. He has a history of chronic kidney disease and underwent a recent kidney biopsy. The patient was experiencing symptoms consistent with pulmonary edema and
had gained five pounds over two days. He was managed with Furosemide (Lasix) 80 mg intravenously, which was recommended in consultation with the nephrology team. Due to the pulmonary edema and fluid overload, it was determined that the patient
should be admitted for further monitoring and management.
DISPOSITION
Admit.
ASSESSMENT
The patient is suffering from a CHF exacerbation with cardiorenal syndrome, along with chronic kidney disease and nephrotic syndrome contributing to fluid overload.
EMERGENCY TREATMENTS ADMINISTERED
80 mg of intravenous Furosemide (Lasix) was administered as part of the pulmonary edema management.
MANAGEMENT OF THE PATIENTS CARE WAS DISCUSSED WITH
Nephrology and the hospitalist team.
PLAN
The patient will be admitted under the care of the hospitalist. Continuous review and management of his fluid status and renal function will be performed. Additional monitoring will be conducted for any changes in pulmonary or cardiovascular status.
MEDICAL DECISION MAKING
Number and Complexity of Problems Addressed: Chronic conditions affecting care: chronic kidney disease, CHF exacerbation, cardiorenal syndrome, nephrotic syndrome.
Data:
Category 1: EKG was independently interpreted showing sinus bradycardia and non-specific T-wave abnormality.
Category 3: Discussion of management with nephrology and the hospitalist team.
DIAGNOSIS
- Congestive heart failure exacerbation (ICD-10: I50.9)
- Cardiorenal syndrome (ICD-10: N17.9)
- Chronic kidney disease (ICD-10: N18.9)
- Nephrotic syndrome (ICD-10: N04.9)
- Pulmonary edema (ICD-10: J81.0)
Past History
Past History
ED Past Medical History: CHF and HTN
ED Past Surgical History: None
Social History
Tobacco: Non-smoker
Alcohol: None
Drug: None
Living: with family
Employment: Retired
Phy Exam
Physical Exam
Physical Exam:
.
Scores
Heart Failure Risk
Heart Failure Risk Score: Yes
History of Stroke or TIA: No
History of intubation for respiratory distress: No
Heart rate on ED arrival >/= 110: No
SaO2 <90% on arrival on room air: Yes
HR >/=110 during 3min walk test (or too ill to perform test): Yes
ECG has acute ischemic changes: No
Urea >/=12mmol/L (BUN 33.6mg/dL): Yes
Serum CO2>/=35mmol/L: No
Troponin I or T elevated to ID Level (0.4mg/dL): No
NT-proBNP >/=5,000ng/L (5,000pg/ml): Yes
HF Risk Score: 5
Admission Status: VERY HIGH RISK 39.8% Consider admission to hospital
Course
Orders/Labs/Results
Orders:
Orders
06/20/25 11:13
Electrocardiogram (*1) Stat
Reason for Study: Other
Other Reason for Exam: pneumonia
Cardiac Monitoring- Treatment ONCE
EKG- Treatment ONCE
IV Insert/Care/Rem.- Treatment PRN
O2 Therapy [RESP] Stat
Nasal Cannula Liter Flow: 3 LPM
Titrate/Wean O2 to maintain O2 sat greater than (%): 92
Pulse Ox/cont/shift [RESP] Stat
Quantity: 1
06/20/25 11:14
CR Chest - 2 Views Urgent
Comment:
Reason For Exam: short of breath
06/20/25 11:20
Complete Blood Count/With Diff Urgent
Comprehensive Metabolic Panel Urgent
NT-proBNP Urgent
Troponin I Urgent
06/20/25 12:24
Furosemide [Lasix] 80 mg IV NOW STA
06/20/25 12:39
Cryoglobulin [S] Urgent
Hepatitis B Core Ab, Total Urgent
Hepatitis B Surface Antibody Urgent
Hepatitis B Surface Antigen Urgent
Hepatitis C Antibody Urgent
Realitos/Lambda FLC Quant [S] Urgent
PSA, Total - Diagnostic Urgent
Protein Electrophoresis Reflex [S] Urgent
Abnormal Lab Results
06/20/25
11:20
RBC 4.14 L 10^6/uL
(4.70-6.10)
Hgb 11.2 L g/dL
(13.0-18.0)
Hct 35.9 L %
(39.0-52.0)
MCHC 31.2 L g/dL
(33.0-37.0)
RDW 15.4 H %
(11.5-14.5)
MPV 10.6 H fL
(7.4-10.4)
Absolute Monos (auto) 0.9 H 10^3/uL
(0.1-0.6)
Monocytes % 10.8 H %
(1.7-9.3)
Chloride 110 H mmol/L
(98-107)
BUN 55 H mg/dl
(9-20)
Creatinine 1.6 H mg/dL
(0.7-1.3)
Glucose 112 H mg/dl
(70-99)
Calcium 7.8 L mg/dl
(8.4-10.2)
Total Protein 5.2 L g/dl
(6.3-8.2)
Albumin 2.2 L g/dl
(3.5-5.0)
06/20/25 11:20
06/20/25 11:20
Vital Signs
Initial and Last Documented VS:
Initial Vital Signs
Temp Pulse Resp BP Pulse Ox
98.4 F 51 18 140/58 98
06/20/25 10:36 06/20/25 10:36 06/20/25 10:36 06/20/25 10:36 06/20/25 10:36
Last Documented Vital Signs
Temp Pulse Resp BP Pulse Ox
98.4 F 55 19 172/73 98
06/20/25 10:36 06/20/25 13:15 06/20/25 13:15 06/20/25 13:00 06/20/25 13:15
*Pulse Oximetry
SaO2: 98
Nasal Cannula flow liters per minute: 3
Patient hypoxic: no
*Critical Care Note
Total Time (30-74mins, 75-104mins- exclusive of procedures): Not Applicable
ED Attending Note
-
Portions of this chart may have been created with voice recognition software.� Occasional wrong word or��sound alike� substitutions may have occurred due to the inherent limitations of voice recognition software.
Discharge Plan
Departure
Patient Disposition: Admit
Date of Disposition: 06/20/25
Time of Disposition: 12:27
Admit to: Telemetry
Presentation/result/management discussed w/ accepting MD/DO: Hospitalist
Patient with high blood pressure during this ER visit?: Yes
Condition: Fair
Discharge Problem:
Acute exacerbation of CHF (congestive heart failure), Nephrotic syndrome, Chronic kidney disease, stage 3b, Cardiorenal syndrome with renal failure
Prescriptions:
No Action
cilostazol 100 mg Tablet
100 mg PO BID
amlodipine [Norvasc] 5 mg Tablet
5 mg PO DAILY
sertraline 25 mg Tablet
25 mg PO HS
Refresh Optive 0.5-0.9 % Drops
1 drp BOTH EYES TID
Rx Instructions:
prn
omeprazole 20 mg Tablet,Delayed Release (Dr/Ec)
20 mg PO DAILY
Trelegy Ellipta 100-62.5-25 mcg Blister With Device
1 inh INHALATION R DAILY
carvedilol 12.5 mg Tablet
12.5 mg PO BID Qty: 60 0RF
bumetanide 2 mg Tablet
2 mg PO BID@0800,1600 Qty: 60 0RF
Rx Instructions:
1 and 1/2 tabs in am (3mg), 2mg in pm
dapagliflozin propanediol 10 mg Tablet
10 mg PO DAILY Qty: 30 0RF
aspirin 81 mg Tablet
81 mg PO DAILY
spironolactone 25 mg tablet
12.5 mg PO Q48H
hydralazine 25 mg tablet
37.5 mg PO BID
Referrals:
Abad Chung Jr., [Family Provider, Family Practice]
Interventions
Interventions:
*Risk Screen - Suicide Last Done: 06/20/25 10:36
*General Assessment Last Done: 06/20/25 11:25
*Neglect/Abuse Screening Last Done: 06/20/25 10:36
*ED- Fall Risk Assessment Last Done: 06/20/25 11:25
*ED COVID-19 Vaccine History Last Done: 06/20/25 11:25
ED- Cardiac Assessment Last Done: 06/20/25 11:25
ED- Pulmonary Assessment Last Done: 06/20/25 11:25
Discharge Date and Time
Print Language: KINYARWANDA
[2025-06-20] MEDS: LASIX 80 MG IV ×2 (12:42→18:20)
--- NOTE | 2025-06-20 12:54 | PHANOTE ---
med rec note- patient and spouse does not know patient medication, spouse said they have not changed his the last time he was here, unfortunately does look like changes were made, used ecw, pharmacy and medical records
--- NOTE | 2025-06-20 13:08 | CM ---
Patient seen bedside w/ spouse in ED. Initial assessment completed. Patient is an 84-year-old male who presents with difficulty breathing and increased swelling.
Patient resides w/ spouse in a single story home, 1 step to enter from the outside. Patient is independent w/ ambulation, no device required. Independent w/ ADLs. Patient has grab bar and shower chair in bathroom. Has home O2 (3L), uses as needed
per spouse. Unsure of DME company. Denies SNF hx. Patient is current w/ [facility] and PT.
Address, points of contact and insurance verified.
Spouse is okay to not be a contact and for her children to remain primary and secondary contacts for patient.
PCP: Abad Chung
Pharmacy: [facility] ([facility])
Plan: CM will cont to follow patient's medical progress
[2025-06-20 13:42] LABS: PSA, Total - Diagnostic 0.39 ng/ml (0.0-4.0)
[2025-06-20 13:43] LABS: Hepatitis B Surface Antigen Negative (Negative)
[2025-06-20 14:01] LABS: Hepatitis C Antibody Negative (Negative)
--- NOTE | 2025-06-20 14:57 | CON.CAR ---
Addendum entered and electronically signed by Marlon Whyte MD 06/20/25 15:47:
I saw and examined the patient.
The GLOBAL PROJECT MANAGER or PA's note was reviewed and I agree with the note.
Comment: General: Well developed, well nourished in NAD.
Neck: Supple, no JVD, HJR, carotids +2 B/L, no bruits bilaterally.
Heart: Non displaced PMI, RRR, no murmurs, No S3, S4, no rubs.
Lungs: scattered rhonchi
Extremities: Mild lower extremity edema bilaterally with chronic venous stasis changes
Neuro: Grossly nonfocal, awake, alert and oriented x3.
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
oxygen, pulm hypertension. Who presents with increasing shortness of breath, weight gain, increasing lower extremity edema. He did not improve on higher Bumex dose and is admitted with acute diastolic CHF. Nephrology has been consulted to help
with diuresis and will need to follow renal function closely. Discussed with patient and at bedside.
Original Note:
Consultation
Consultation Request
Date/Time Consultation Requested: 06/20/2025
Date/Time Consultation Performed: 06/20/2025
Requesting Provider: Dr. Wilson
Performing Provider: Yue Rose PA-C for Dr. Whyte
Reason for Consultation: CHF
Medical History
-
History of Present Illness:
HPI: Macario is an 84 year old male with PMH of chronic HFpEF, atrial tachycardia, CKD 3, nephrotic syndrome, PAD, HTN, HLD, COPD, ILD, and GERD. Presented to [facility] ER for evaluation of worsening shortness of breath and weight gain with increased LE
edema over the past few weeks. He has continued to struggle as OP despite increasing his bumex dose and with worsening symptoms, came to ER for evaluation. In ER, appears to be in acute heart failure with proBNP elevated at 5540. Chest XR with
possible pneumonia versus fluid collection in fissure. He is in SR on review of telemetry and by initial EKG with stable heart rates. He was evaluated by nephrology as they primarily manage his diuretics due to history of CKD as well as nephrotic
syndrome. He has been started on IV lasix 80mg BID and notes good response to this so far. He had recent renal biopsy 2 days ago which reportedly was consistent with membranous nephropathy.
PMH:
Chronic HFpEF
Atrial tachycardia
CKD 3
Nephrotic syndrome
Moderate MR
PAD, abnormal L IVAN, mod to severe claudication
HTN
HLD
GERD
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
Pulmonary hypertension
Past Medical History
Past Medical History: Other (In HPI)
Past Surgical History: Other (hernia repair 02/2025)
Social History
Tobacco: Former Smoker
Alcohol: Occasional
Drug: None
Personal:
Living: With Family
Employment: Retired
Family History
Family History: Reviewed & Not Pertinent
Allergies / Home Medications
Allergy/AdvReac Type Severity Reaction Status Date / Time
No Known Allergies Allergy Verified 06/20/25 10:35
�Medication �Instructions �Recorded �Confirmed �Type
amlodipine 5 mg tablet (Norvasc) 5 mg PO DAILY Blood Pressure 10/31/24 06/20/25 History
carboxymethylcellulose 0.5 1 drp BOTH EYES TID Eye Condition 10/31/24 06/20/25 History
%-glycerin 0.9 % eye drops
(Refresh Optive)
cilostazol 100 mg tablet 100 mg PO BID Blood Clot 10/31/24 06/20/25 History
Prevention/Tx
fluticasone fur. 100 mcg-umeclid 1 inh inhalation R DAILY 10/31/24 06/20/25 History
62.5 mcg-vilant 25 mcg Lung/Breathing Issues
inhalat.powder (Trelegy Ellipta)
omeprazole 20 mg tablet,delayed 20 mg PO DAILY Gastrointestinal 10/31/24 06/20/25 History
release Issue
sertraline 25 mg tablet 25 mg PO HS Depression 10/31/24 06/20/25 History
bumetanide 2 mg tablet 2 mg PO BID@0800,1600 #60 tabs 11/27/24 06/20/25 Rx
carvedilol 12.5 mg tablet 12.5 mg PO BID #60 tabs 11/27/24 06/20/25 Rx
dapagliflozin propanediol 10 mg 10 mg PO DAILY #30 tabs 11/27/24 06/20/25 Rx
tablet
aspirin 81 mg tablet 81 mg PO DAILY 06/16/25 06/20/25 History
spironolactone 25 mg tablet 12.5 mg PO Q48H 06/17/25 06/20/25 History
hydralazine 25 mg tablet 37.5 mg PO BID 06/20/25 06/20/25 History
Review of Systems
-
History Source: Patient
All other systems: Negative unless noted
Physical Exam
Vital Signs
Temp Pulse Resp BP Pulse Ox
98.4 F 52 16 166/106 97
06/20/25 10:36 06/20/25 14:00 06/20/25 14:03 06/20/25 14:00 06/20/25 14:00
Lab Results
06/20/25 11:20
06/20/25 11:20
Troponin I 0.015 ng/ml 06/20/25 11:20
Fns-H-Unvsmtmnmbv Pept 5540 pg/ml 06/20/25 11:20
Physical Exam
General: Well Developed, Well Nourished and No Apparent Distress
HEENT: Moist Mucous Membranes
Respiratory: Wheezes, Crackles and Non Labored Respirations
Cardiac: S1/S2 and Regular Rhythm
Musculoskeletal: No Clubbing, No Cyanosis and Edema
Skin: Warm and Dry
Neuro: AO x 3 and Nonfocal/Grossly Intact
Psych: Calm
Impression / Plan
-
PCP: Dr. Chung
Conduit Cleaner: Dr. Cinthya Nuñez
Impression:
Presented with SOB, weight gain, LE edema
Acute on chronic HFpEF
Atrial tachycardia
CKD 3
Nephrotic syndrome
Moderate MR
PAD, abnormal L IVAN, mod to severe claudication
HTN
HLD
GERD
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
Pulmonary hypertension
Echo 04/10/2025: EF 63%, mild MR, trivial AR, mild to moderate TR, estimated PAP 48 to 51 mmHg, mild to moderate ND, trivial pericardial effusion
Plan:
-Presented with worsening SOB, weight gain, and LE edema. Admitted with acute heart failure exacerbation
-Nephrology following and managing diuretics. Agree with IV Lasix 80 mg twice daily.
-Follow daily weights, I&O's. His weight is up at least 9 pounds from last office visit (but at that time he appeared volume overloaded as well and was placed on higher dose diuretic).
-Creatinine at baseline at 1.6. Follow with diuresis
-Echo 04/10/2025 showed preserved EF as noted above. No need to repeat at this time.
-Continue Farxiga, Coreg, hydralazine, and spironolactone.
-BP has been elevated as outpatient and elevated today in ER. Could consider increasing hydralazine if BP remains elevated w/ diuresis.
-EKG reviewed, SR with no acute ischemic changes noted.
-Troponin 0.015. No chest pain.
HPI: Macario is an 84 year old male with PMH of chronic HFpEF, atrial tachycardia, CKD 3, nephrotic syndrome, PAD, HTN, HLD, COPD, ILD, and GERD. Presented to [facility] ER for evaluation of worsening shortness of breath and weight gain with increased LE
edema over the past few weeks. He has continued to struggle as OP despite increasing his bumex dose and with worsening symptoms, came to ER for evaluation. In ER, appears to be in acute heart failure with proBNP elevated at 5540. Chest XR with
possible pneumonia versus fluid collection in fissure. He is in SR on review of telemetry and by initial EKG with stable heart rates. He was evaluated by nephrology as they primarily manage his diuretics due to history of CKD as well as nephrotic
syndrome. He has been started on IV lasix 80mg BID and notes good response to this so far. He had recent renal biopsy 2 days ago which reportedly was consistent with membranous nephropathy.
Data Reviewed
-
EKG: Tracing Personally Visualized and interpreted
Radiology: Report Reviewed by me
Labs: Labs Reviewed by me
Old Records: Reviewed
--- NOTE | 2025-06-20 15:20 | HPS.HSE ---
Addendum entered and electronically signed by Eboni Wilson MD 06/20/25 20:59:
I personally performed a history and physical exam of the patient and discussed management with the resident. I reviewed the resident's note and agree with the documented findings and plan of care HPI/CC.
GENERAL: well developed, well nourished, male in no apparent distress
HEENT: NC/AT--O2 NC in place
HEART: regular rate and rhythm, +S1, +S2
LUNGS : crackles bilaterally with mild resp distress--winded with speaking
ABDOM: soft, nontender, nondistended, + bowel sounds
EXT: no cyanosis, clubbing--2+ LE edema bilaterally with redness to mid ojeda bilaterally and scratch on left ojeda
NEUROLOGIC: grossly intact
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
showed preserved ejection fraction--creat at baseline
membranous nephropathy--Renal biopsy from 06/17/2025 revealed anti-� PLA2R antibody negative, which may suggest a secondary variant of membranous nephropathy--apprec renal--initiating w/u for secondary varients--CT scan chest/abdomen/pelvis without
IV contrast (creat 1.6 at baseline)--SPEP/UPEP, etc--�Bilateral duplex venous ultrasound ordered due to risk of hypercoagulability from nephrotic syndrome.
essential HTN--multidrug resistant (amlodipine, bumex, carvedilol, hydralazine, spironolactone)--blood pressure elevated--adjusting meds
Right lung base opacity--CXR revealed well marginated opacity within the right lung base measuring 6.1 x 5.4 cm which may represent a pneumonia with a developing abscess. This could also represent loculated fluid within the fissure--Given history
of nephrotic syndrome, this could be a pneumonia versus pleural effusion versus malignancy--workup in process
Depression--sertraline
GERD--omeprazole
DVT proph
code status--FULL CODE
Original Note:
Family Physician
-
Family Physician: Abad Chung
Chief Complaint
-
Shortness of breath
History of Present Illness
Patient is an 84-year-old male with a past medical history of HFpEF, hypertension, CKD, hyperlipidemia, COPD and anemia who presented to the ED with progressive shortness of breath. Patient states he had a kidney biopsy 2 days ago for impaired
renal function at [facility], and has noticed progressive shortness of breath, orthopnea, leg swelling and abdominal distention since then. His states he is normally 166 lbs, and was 177 lbs this morning-thinks his weight gain was over a couple
of weeks. Patient uses supplemental oxygen at baseline as needed, but has used it continuously for the past few days. He denies chest pain, abdominal pain, nausea, vomiting, fever, chills, diarrhea, constipation or cough. Last bowel movement was
this morning and was normal.
Medical History
Past Medical History
Past Medical History: Reports CHF, COPD, GERD and HTN
Additional Past Medical History:
Nephrotic syndrome
Moderate mitral regurgitation with pulmonary hypertension
Peripheral arterial disease
Hyperlipidemia
Atrial tachycardia
Past Surgical History: Reports Other (Hernial repair)
Social History
Tobacco: Former Smoker (Quit > 30 years ago)
Alcohol: Occasional (wine)
Personal:
Living: With Family
Family History
Family History: Not pertinent
Allergies / Home Medications
Allergies reflects when Allergies were last updated in [employer].
Home Medications with original date entered in [employer]
Allergy/Medication List:
Allergies
Allergy/AdvReac Type Severity Reaction Status Date / Time
No Known Allergies Allergy Verified 06/20/25 10:35
Home Medications
amlodipine 5 mg tablet (Norvasc) 5 mg PO DAILY Blood Pressure 10/31/24
carboxymethylcellulose 0.5 %-glycerin 0.9 % eye drops (Refresh Optive) 1 drp BOTH EYES TID Eye Condition 10/31/24
cilostazol 100 mg tablet 100 mg PO BID Blood Clot Prevention/Tx 10/31/24
fluticasone fur. 100 mcg-umeclid 62.5 mcg-vilant 25 mcg inhalat.powder (Trelegy Ellipta) 1 inh inhalation R DAILY Lung/Breathing Issues 10/31/24
omeprazole 20 mg tablet,delayed release 20 mg PO DAILY Gastrointestinal Issue 10/31/24
sertraline 25 mg tablet 25 mg PO HS Depression 10/31/24
bumetanide 2 mg tablet 2 mg PO BID@0800,1600 #60 tabs 11/27/24
carvedilol 12.5 mg tablet 12.5 mg PO BID #60 tabs 11/27/24
dapagliflozin propanediol 10 mg tablet 10 mg PO DAILY #30 tabs 11/27/24
aspirin 81 mg tablet 81 mg PO DAILY 06/16/25
spironolactone 25 mg tablet 12.5 mg PO Q48H 06/17/25
hydralazine 25 mg tablet 37.5 mg PO BID 06/20/25
Review of Systems
-
History Source: Patient and Family ()
Constitutional: Reports Weight Gain
EENT: Reports No Symptoms
Respiratory: Reports Trouble Breathing
Cardiac: Reports No Symptoms
Abdomen/GI: Reports Other (Abdominal distention)
: Reports No Symptoms
Musculoskeletal: Reports Edema (Bilateral lower extremities)
Neurological: Reports No Symptoms
Endocrine: Reports No Symptoms
Hematologic/Lymphatic: Reports No Symptoms
Psych: Reports No Symptoms
Physical Exam
Vital Signs
Vital Signs
Temp Pulse Resp BP Pulse Ox
98.4 F 54 19 176/76 3
06/20/25 10:36 06/20/25 16:00 06/20/25 16:00 06/20/25 16:00 06/20/25 16:06
Physical Exam
General: Well Developed, Well Nourished, No Apparent Distress and Respiratory Distress (Mild)
HEENT: NormoCephalic, Anicteric, Moist mucous membranes, Atraumatic, Nose Appears Normal and Ears Appear Normal
Respiratory: Crackles (Diffusely) and Other (Increased work of breathing)
Cardiac: S1/S2 and Regular Rhythm
GI: Soft, Non Tender, Normal Bowel Sounds, Distended and No Hepatosplenomegaly
Genito-urinary: Deferred by me
Musculoskeletal: No Clubbing, No Cyanosis, Edema, Left Lower Extremity (With erythema and warmth), Edema, Right Lower Extremity (With erythema and warmth) and Other (Healing abrasions to the left lower extremity)
Neuro: Awake, AO x 3 and Nonfocal/grossly intact
Psych: Calm
Laboratory Results
-
06/20/25 11:20
06/20/25 11:20
Laboratory Results
Total Bilirubin 0.3 mg/dl (0.2-1.3) 06/20/25 11:20
AST 22 U/L (17-59) 06/20/25 11:20
ALT 13 U/L (0-50) 06/20/25 11:20
Alkaline Phosphatase 114 U/L (38-126) 06/20/25 11:20
Troponin I 0.015 ng/ml 06/20/25 11:20
Data Reviewed
-
Diagnostic Radiology: Report Reviewed by me and Discussed with Physician
Medical Tests (Nuc Med, Echo, EKG etc): Report Reviewed by me and Discussed with Physician
Lab Data: Labs Reviewed by me and Discussed with Physician
Old Records: Reviewed
Impression/Plan
-
84-year-old male with a past medical history of CHF, nephrotic syndrome, CKD, hypertension and COPD who presented with progressive shortness of breath and leg swelling. Patient got a kidney biopsy done 2 days ago at [facility], and has had
progressive leg swelling with shortness of breath, orthopnea and abdominal distention. Per , normally his weight is 166 lbs, but it was 177 lbs this morning. Renal biopsy from 06/17/2025 revealed membranous nephropathy.
Assessment/Plan:
# Nephrotic syndrome with membranous nephropathy
# Acute CHF exacerbation
Renal biopsy from 06/17/2025 revealed membranous nephropathy with anti-� PLA2R antibody negative, which may suggest a secondary variant of membranous nephropathy. Secondary variant of membranous nephropathy can be attributed to underlying
malignancies.
Echo April 2025 showed preserved ejection fraction
EKG showed normal sinus rhythm with no acute ischemic change
Troponin 0.015, no chest pain
-Nephrology consulted and following. Recommend continuing IV Lasix 80 Mg twice daily. Holding bumetanide for now, will consult nephrology regarding further diuresis regimen.
�Cardiology consulted. Follows with Dr. Nuñez.
-blood pressure elevated. Monitor BP.
�Follow daily weights, I&Os
�Creatinine 06/20/2025 1.6, which is near his baseline. Trend BMP.
�Bilateral duplex venous ultrasound ordered due to risk of hypercoagulability from nephrotic syndrome.
# Right lung base opacity
CXR revealed well marginated opacity within the right lung base measuring 6.1 x 5.4 cm which may represent a pneumonia with a developing abscess. This could also represent loculated fluid within the fissure. Mild thickening of the right minor
fissure. Diffusely increased interstitial opacities bilaterally.
-Given history of nephrotic syndrome, this could be a pneumonia versus pleural effusion versus malignancy.
- Order CT chest for further evaluation.
# Hypertension
# Depression
# GERD
�Continue home medications
[2025-06-20] MEDS: NORVASC 5 MG PO (18:09)
[2025-06-20] MEDS: LOVENOX 40 MG SC (18:10)
--- NOTE | 2025-06-20 18:28 | PTCARENOTE ---
Rec'd pt on admission from ED. BP 193/85. HR 56. Pt tachypnic with RR in 30s. 97% on 3L. Updated Medical team. 80mg IV lasix ordered and given. Education about diet and fluid restriction provided. Oriented to unit. call [facility] in reach.
[2025-06-20 19:10] LABS: Troponin I 0.017 ng/ml
[2025-06-20] MEDS: APRESOLINE 37.5 MG PO (20:04)
[2025-06-20] MEDS: COREG PO (20:24)
[2025-06-20] MEDS: ZOLOFT 25 MG PO (21:27)
--- NOTE | 2025-06-20 22:12 | PTCARENOTE ---
Assumed care of Pt from day RN. Pt AAOx3 able to make needs known. Pt bp responding to output from Lasix will give ordered po hydralazine and hold Coreg, HR low 50's. Pt spo2 95% on 3L b/l lungs rhonchi, top left pleural rub heard. Nebulizer
treatments ordered. Night PODOPEDIATRICIAN aware.
[2025-06-21] VITALS (13 sets, daily range): BP systolic 117–173; BP diastolic 54–75; BMI 25.9
[2025-06-21 05:47] LABS: Hematocrit 39.2 % (39.0-52.0); Hemoglobin 12.2 g/dL (13.0-18.0); Mean Corp Hgb Conc. 31.1 g/dL (33.0-37.0); Mean Corpuscular Volume 86.2 fL (80.0-94.0); Nucleated Red Blood Cells % 0 % (-); Platelet Count 180 10^3/uL (130-400); Red Cell Dist. Width 15.6 % (11.5-14.5)
[2025-06-21 06:05] LABS: ALT (SGPT) 12 U/L (0-50); AST (SGOT) 21 U/L (17-59); Albumin 2.3 g/dl (3.5-5.0); Alkaline Phosphatase 109 U/L (38-126); Blood Urea Nitrogen 50 mg/dl (9-20); Calcium 7.9 mg/dl (8.4-10.2); Carbon Dioxide 29 mmol/L (22-30); Chloride 109 mmol/L (98-107); Estimated Creatinine Clearance 36 ml/min; Glucose 82 mg/dl (70-99); Magnesium 2.2 mg/dl (1.6-2.3); Potassium 4.4 mmol/L (3.5-5.1); Sodium 139 mmol/L (135-145); Total Protein 5.4 g/dl (6.3-8.2); eGFR 42.75
[2025-06-21 06:16] LABS: Troponin I 0.019 ng/ml
[2025-06-21] MEDS: SPIRIVA RESPIMAT 2.5 MCG 2 PUFF INH (07:37)
[2025-06-21] MEDS: SYMBICORT 80/4.5 MCG INHALER 2 PUFF INH ×2 (07:37→20:20)
[2025-06-21] MEDS: FARXIGA 10 MG PO (08:11)
[2025-06-21] MEDS: ALDACTONE 12.5 MG PO (08:11)
[2025-06-21] MEDS: COREG 12.5 MG PO (08:11)
[2025-06-21] MEDS: ASPIR LOW (ENTERIC COATED) 81 MG PO (08:11)
[2025-06-21] MEDS: PROTONIX 40 MG PO (08:11)
[2025-06-21] MEDS: NORVASC 5 MG PO (08:12)
[2025-06-21] MEDS: APRESOLINE 37.5 MG PO ×2 (08:12→21:18)
--- NOTE | 2025-06-21 08:22 | PTCARENOTE ---
[facility]. Patient resting comfortably in bed. AAO, VSS. No events noted over night. No complaints of pain at this time. Breakfast ordered. Currently on 2L N/C. No fluids through IV. Patient able to use urinal and
restroom, x1 assist. Patient scheduled for renal and b/l LE US this AM, no other testing at this time. Call [facility] in reach.
--- NOTE | 2025-06-21 09:04 | W.PN.NEPH.PH ---
Today's Communication / Plan
-
Maintain Lasix 80 mg IV twice daily
For CT scan
Malignancy workup in process
Assessment/Plan
-
Impression:
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
Decompensated congestive heart failure: Likely secondary to renal failure
History of HFpEF
Pulmonary hypertension
History of recent incarcerated left inguinal hernia repair on 02/23/2025
Anemia
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
CKD (1.6): Renal ultrasound notes bilateral renal cysts no hydronephrosis normal size kidneys)
History of hypertension
History of pulmonary hypertension
History of moderate MR
PAD with moderate to severe claudication
Plan:
-The patient is clinically volume overloaded and requires high-dose IV diuretics at 80 mg IV twice daily in the setting of decompensated congestive heart failure due to nephrotic syndrome
-I would also check postvoid bladder scans to assure there is no obstructive component to his diuresis
-His creatinine is actually within his baseline at this time in regards to his CKD
-I had a discussion with the nephro pathologist from [facility] in regards to the patient's renal biopsy that he underwent on 06/17/2025. The patient's biopsy report was consistent with membranous nephropathy. The patient's anti-PLA2R
antibody however has been negative and henceforth it appears that this may be a secondary variant of membranous nephropathy. Secondary membranous nephropathy can be attributed to underlying malignancies and henceforth we will have to pursue more
full malignancy workup. I will also include hepatitis and cryoglobulin serologies. The patient reportedly has had a recent colonoscopy which was negative.
- We should obtain a PSA, none IV contrast CT of chest abdomen and pelvis, and dysproteinemia workup which would include SPEP, BEA, serum free light chain kappa lambda ratio, hepatitis serology, cryoglobulin
-Hepatitis serologies negative, cryoglobulins pending, PSA normal
-For noncontrast CT of chest abdomen and pelvis
- If in fact no secondary causality can be obtained I would then consider treating this as a primary variant with rituximab, however this agent is often hard to obtain for the treatment of membranous as most insurances do not recognize the indication
- Maintain current antihypertensive regimen
-
-
Date of Service: June 21, 2025
CC / HPI / ROS
-
Chief Complaint:
CKD/membranous nephropathy
History of Present Illness:
Creatinine stable at 1.6 baseline
Hemodynamically stable
Review of Systems:
Nonoliguric
Weight slightly down
Remains on oxygen therapy but no reported shortness of breath or chest
Labs
-
Labs:
WBC 7.1 10^3/uL (4.8-10.8) 06/21/25 04:50
RBC 4.55 10^6/uL (4.70-6.10) L 06/21/25 04:50
Hgb 12.2 g/dL (13.0-18.0) L 06/21/25 04:50
Hct 39.2 % (39.0-52.0) 06/21/25 04:50
Plt Count 180 10^3/uL (130-400) 06/21/25 04:50
Sodium 139 mmol/L (135-145) 06/21/25 04:50
Potassium 4.4 mmol/L (3.5-5.1) 06/21/25 04:50
Chloride 109 mmol/L (98-107) H 06/21/25 04:50
Carbon Dioxide 29 mmol/L (22-30) 06/21/25 04:50
BUN 50 mg/dl (9-20) H 06/21/25 04:50
Creatinine 1.6 mg/dL (0.7-1.3) H 06/21/25 04:50
eGFR 42.75 06/21/25 04:50
Glucose 82 mg/dl (70-99) 06/21/25 04:50
Calcium 7.9 mg/dl (8.4-10.2) L 06/21/25 04:50
Hjt-Y-Mihkcczggrk Pept 5540 pg/ml 06/20/25 11:20
Albumin 2.3 g/dl (3.5-5.0) L 06/21/25 04:50
Physical Exam
-
Vital Signs:
Vital Signs
Temp Pulse Resp BP Pulse Ox
97.6 F 60 16 151/71 95
06/21/25 06:35 06/21/25 08:11 06/21/25 07:40 06/21/25 08:11 06/21/25 08:17
Cardiovascular:: Regular rate and rhythm
Respiratory:: Bilateral: Rales (At bases)
Lung Excursion:: Normal
Abdomen:: Nontender and Soft
Bowel Sounds:: Normal
Extremity Edema:: +1: Bilateral:
Rey Catheter: No
--- NOTE | 2025-06-21 10:27 | W.PN.CARDCBS ---
Today's Communication / Plan
-
Weight unchanged despite attempts at diuresis
Nephrology managing diuretics
Impression / Plan
-
PCP: Dr. Chung
Rewrite Editor: Dr. Cinthya Nuñez
Impression:
Presented with SOB, weight gain, LE edema
Acute on chronic HFpEF
Atrial tachycardia
CKD 3
Nephrotic syndrome
Moderate MR
PAD, abnormal L IVAN, mod to severe claudication
HTN
HLD
GERD
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
Pulmonary hypertension
Echo 04/10/2025: EF 63%, mild MR, trivial AR, mild to moderate TR, estimated PAP 48 to 51 mmHg, mild to moderate SC, trivial pericardial effusion
Plan:
Weight has remained relatively stable despite attempts at diuresis
Nephrology managing diuretics and creatinine remained stable at 1.6
Continue Farxiga, Coreg, hydralazine, and spironolactone.
Discussed with nursing
HPI: Macario is an 84 year old male with PMH of chronic HFpEF, atrial tachycardia, CKD 3, nephrotic syndrome, PAD, HTN, HLD, COPD, ILD, and GERD. Presented to [facility] ER for evaluation of worsening shortness of breath and weight gain with increased LE
edema over the past few weeks. He has continued to struggle as OP despite increasing his bumex dose and with worsening symptoms, came to ER for evaluation. In ER, appears to be in acute heart failure with proBNP elevated at 5540. Chest XR with
possible pneumonia versus fluid collection in fissure. He is in SR on review of telemetry and by initial EKG with stable heart rates. He was evaluated by nephrology as they primarily manage his diuretics due to history of CKD as well as nephrotic
syndrome. He has been started on IV lasix 80mg BID and notes good response to this so far. He had recent renal biopsy 2 days ago which reportedly was consistent with membranous nephropathy.
Progress Note - Rewrite Editor
Subjective
Date of Service: June 21, 2025
No chest pain or shortness of breath
Objective
Labs:
06/21/25 04:50
06/21/25 04:50
Labs
Hgb 12.2 g/dL (13.0-18.0) L 06/21/25 04:50
Hct 39.2 % (39.0-52.0) 06/21/25 04:50
Plt Count 180 10^3/uL (130-400) 06/21/25 04:50
Sodium 139 mmol/L (135-145) 06/21/25 04:50
Potassium 4.4 mmol/L (3.5-5.1) 06/21/25 04:50
BUN 50 mg/dl (9-20) H 06/21/25 04:50
Creatinine 1.6 mg/dL (0.7-1.3) H 06/21/25 04:50
Glucose 82 mg/dl (70-99) 06/21/25 04:50
Troponins
06/20/25 06/20/25 06/21/25
11:20 18:17 00:30
Troponin I 0.015 0.017 Cancelled
06/21/25
04:50
Troponin I 0.019
Vital Signs and I&O:
Vital Signs
Temp Pulse Resp BP Pulse Ox
97.6 F 60 16 151/71 3
06/21/25 06:35 06/21/25 08:11 06/21/25 07:40 06/21/25 08:11 06/21/25 08:29
Vital Signs
Temp Pulse Resp BP Pulse Ox
97.6 F 60 16 151/71 3
06/21/25 06:35 06/21/25 08:11 06/21/25 07:40 06/21/25 08:11 06/21/25 08:29
Intake & Output
06/19/25 06/20/25 06/21/25 06/22/25
06:59 06:59 06:59 06:59
Intake Total 120 / 120
Output Total 1300 / 1300
Balance -1180 / -1180
Physical Exam
Physical Exam
General: Well developed, well nourished in NAD.
Neck: Supple, no JVD, HJR, carotids +2 B/L, no bruits bilaterally.
Heart: Non displaced PMI, RRR, no murmurs, No S3, S4, no rubs.
Lungs: Scattered rhonchi
Extremities: No clubbing, cyanosis or edema bilaterally.
Neuro: Grossly nonfocal, awake, alert and oriented x3.
[2025-06-21] MEDS: LASIX 80 MG IV ×2 (10:45→16:54)
--- NOTE | 2025-06-21 15:18 | W.PN.HOSP.TC ---
Addendum entered and electronically signed by Eboni Wilson MD 06/21/25 15:44:
I saw and evaluated the patient independently. I reviewed the resident�s note and agree with findings and plan as documented by Dr. Lincoln.
GENERAL: well developed, well nourished, male in no apparent distress but endorses SOB
HEENT: NC/AT--O2 NC in place
HEART: regular rate and rhythm, +S1, +S2, bradycardic
LUNGS : crackles bilaterally with mild resp distress--winded with speaking
ABDOM: soft, nontender, nondistended, + bowel sounds
EXT: no cyanosis, clubbing--2+ LE edema bilaterally with redness to mid ojeda bilaterally and scratch on left ojeda
NEUROLOGIC: grossly intact
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
showed preserved ejection fraction--creat at baseline
membranous nephropathy--Renal biopsy from 06/17/2025 revealed anti-�PLA2R antibody negative, which may suggest a secondary variant of membranous nephropathy--apprec renal--initiating w/u for secondary variants--CT scan chest/abdomen/pelvis without IV
contrast (creat 1.6 at baseline)--SPEP/UPEP, etc--�Bilateral duplex venous ultrasound ordered due to risk of hypercoagulability from nephrotic syndrome and were negative
essential HTN--multidrug resistant (amlodipine, bumex, carvedilol, hydralazine, spironolactone)--blood pressure elevated--adjusting meds
bradycardia--HR 40s--will decrease carvedilol dose--follow
Right lung base opacity--CXR revealed well marginated opacity within the right lung base measuring 6.1 x 5.4 cm which may represent a pneumonia with a developing abscess. This could also represent loculated fluid within the fissure--Given history
of nephrotic syndrome, this could be a pneumonia versus pleural effusion versus malignancy--workup in process
Depression--sertraline
GERD--omeprazole
DVT proph
code status--FULL CODE
Original Note:
Today's Communication/Plan
-
- trend weight, in and outs, CMP, await results of CT scan, nephrology/ cardiology following
Assessment / Plan
Assessment / Plan
# Nephrotic syndrome with membranous nephropathy
# Acute CHF exacerbation
#abdominal fullness
Renal biopsy from 06/17/2025 revealed membranous nephropathy with anti-� PLA2R antibody negative, which may suggest a secondary variant of membranous nephropathy. Secondary variant of membranous nephropathy can be attributed to underlying
malignancies.
Echo April 2025 showed preserved ejection fraction
EKG showed normal sinus rhythm with no acute ischemic change
Troponin 0.015, no chest pain
�Cardiology consulted. Follows with Dr. Nuñez.
-blood pressure elevated. Monitor BP.
�Creatinine 06/21/2025 1.6, which is near his baseline. Trend BMP.
�Bilateral duplex venous ultrasound ordered due to risk of hypercoagulability from nephrotic syndrome-- negative
- Nephrology consulted and following. Recommend continuing IV Lasix 80 Mg twice daily. Holding bumetanide for now, will consult nephrology regarding further diuresis regimen.
- Todays weight is 79.5 kgs from 82.6 kgs yesterday.
- Follow daily weights, I&Os, sodium restricted diet, salt restricted diet.
- Bladder scan ordered.
- PSA negative indicating negative prostate cancer probability.
- Ordered CT abdomen pelvis without iv contrast to evaluate further for abdominal fullness. DD could be ascites vs hepatic congestion in the setting of his nephrotic syndrome.
- Nephrology ordered SPEP, BEA, serum free light chain kappa lambda ratio, hepatitis serology, cryoglobulin.
# Right lung base opacity
CXR revealed well marginated opacity within the right lung base measuring 6.1 x 5.4 cm which may represent a pneumonia with a developing abscess. This could also represent loculated fluid within the fissure. Mild thickening of the right minor
fissure. Diffusely increased interstitial opacities bilaterally.
-Given history of nephrotic syndrome, this could be a pneumonia versus pleural effusion versus malignancy.
- Order CT chest without IV contrast for further evaluation.
#bradycardia:
- His heart rate is 48 in the room monitor . Will lower the dose of his carvedilol to 6.25 mg bid first to see if there is a response. Previous EKGs show normal HR above 60.
# Hypertension
- continue amlodipine, carvedilol, hydralazine, spironolactone
- blood pressure is 149/67 and stable.
# Depression
- continue sertraline
# GERD
- continue omeprazole
Anticipated Discharge: 24 - 48 hours
Subjective/Interval History
-
Date of Service: June 21, 2025
patient is complaining of abdominal fullness and difficulty breathing on exertion.
Objective Data
-
Labs:
Laboratory Results
06/21/25
04:50
WBC 7.1
Hgb 12.2 L
Hct 39.2
Plt Count 180
Sodium 139
Potassium 4.4
Chloride 109 H
Carbon Dioxide 29
BUN 50 H
Creatinine 1.6 H
Glucose 82
Calcium 7.9 L
Total Bilirubin 0.4
AST 21
ALT 12
Alkaline Phosphatase 109
Vital Signs:
Vital Signs
Temp Pulse Resp BP Pulse Ox
98.0 F 51 21 149/67 96
06/21/25 11:12 06/21/25 12:01 06/21/25 12:01 06/21/25 10:45 06/21/25 12:01
I&O
06/20/25 06/21/25 06/22/25
06:59 06:59 06:59
Intake Total 120 / 120
Output Total 1300 / 1300 200 / 200
Balance -1180 / -1180 -200 / -200
Review of Systems
-
History Source: Patient
All other systems: Reviewed and negative
Respiratory: Reports Trouble Breathing
Abdomen/GI: Reports Abdominal Pain
Physical Exam
-
General: Appears in Distress and Pain
Respiratory: Crackles (bilaterally at the base of both lungs )
Cardiac: Regular Rhythm and S1/S2
GI: Soft, Nontender, Nondistended and Normal Bowel Sounds
Musculoskeletal: Edema, Right Lower Extrem and Edema, Left Lower Extrem
Skin: Warm and Dry
Neuro: AO x 3
Data Reviewed
-
Labs: Labs Reviewed by me and Discussed with Physician
[2025-06-21] MEDS: LOVENOX 40 MG SC (16:56)
[2025-06-21] MEDS: COREG PO (21:18)
[2025-06-21] MEDS: ZOLOFT 25 MG PO (21:19)
[2025-06-22] VITALS (14 sets, daily range): BP systolic 136–174; BP diastolic 58–87; BMI 26.0
--- NOTE | 2025-06-22 00:14 | PTCARENOTE ---
[facility] Pt aaox3. sinus nora on the monitor with first degree HB and BBB, hr 50s. SpO2 95% on 2L NC. Pt sat in the chair for the first two hours of the shift. Pt walked back to the bed with a steady gait. VS and
assessment as documented. Pt resting in bed with call loyola in reach.
--- NOTE | 2025-06-22 00:16 | PTCARENOTE ---
Assumed care of patient from [facility] RN. Pt aaox3. sinus nora with BBB and occasional PACs on the monitor, hr 50s. SpO2 95% on 2L NC. Pt sat in the chair for the first two hours of the shift. Pt walked back to the bed with a steady gait. VS and
assessment as documented. Pt resting in bed with call loyola in reach.
[2025-06-22] MEDS: APRESOLINE 10 MG IV (02:04)
[2025-06-22 05:31] LABS: Hematocrit 38.7 % (39.0-52.0); Hemoglobin 12.4 g/dL (13.0-18.0); Mean Corp Hgb Conc. 32.0 g/dL (33.0-37.0); Mean Corpuscular Volume 86.0 fL (80.0-94.0); Nucleated Red Blood Cells % 0 % (-); Platelet Count 186 10^3/uL (130-400); Red Cell Dist. Width 15.1 % (11.5-14.5)
[2025-06-22 05:51] LABS: ALT (SGPT) 11 U/L (0-50); AST (SGOT) 21 U/L (17-59); Albumin 2.3 g/dl (3.5-5.0); Alkaline Phosphatase 122 U/L (38-126); Blood Urea Nitrogen 53 mg/dl (9-20); Calcium 7.7 mg/dl (8.4-10.2); Carbon Dioxide 31 mmol/L (22-30); Chloride 107 mmol/L (98-107); Estimated Creatinine Clearance 34 ml/min; Glucose 105 mg/dl (70-99); Magnesium 2.1 mg/dl (1.6-2.3); Potassium 4.6 mmol/L (3.5-5.1); Sodium 138 mmol/L (135-145); Total Protein 5.4 g/dl (6.3-8.2); eGFR 39.75
[2025-06-22] MEDS: SYMBICORT 80/4.5 MCG INHALER 2 PUFF INH ×2 (07:31→20:01)
[2025-06-22] MEDS: SPIRIVA RESPIMAT 2.5 MCG 2 PUFF INH (07:31)
--- NOTE | 2025-06-22 08:22 | W.PN.CARDCBS ---
Today's Communication / Plan
-
Nephrology managing diuretics
Creatinine has worsened slightly from 1.6- to 1.7 and has not diuresed much since admission based on weights
Impression / Plan
-
PCP: Dr. Chung
Street Openings Inspector: Dr. Cinthya Nuñez
Impression:
Presented with SOB, weight gain, LE edema
Acute on chronic HFpEF
Atrial tachycardia
CKD 3
Nephrotic syndrome
Moderate MR
PAD, abnormal L IVAN, mod to severe claudication
HTN
HLD
GERD
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
Pulmonary hypertension
Echo 04/10/2025: EF 63%, mild MR, trivial AR, mild to moderate TR, estimated PAP 48 to 51 mmHg, mild to moderate LA, trivial pericardial effusion
Plan:
Weight has remained relatively stable despite attempts at diuresis
Nephrology managing diuretics and creatinine has increased from 1.6 on 06/21 to 1.7 on 06/22
Continue Farxiga, Coreg, hydralazine, and spironolactone.
Will place hold parameters on Coreg as Coreg was held for bradycardia
Discussed with nursing
HPI: Macario is an 84 year old male with PMH of chronic HFpEF, atrial tachycardia, CKD 3, nephrotic syndrome, PAD, HTN, HLD, COPD, ILD, and GERD. Presented to [facility] for evaluation of worsening shortness of breath and weight gain with increased LE
edema over the past few weeks. He has continued to struggle as OP despite increasing his bumex dose and with worsening symptoms, came to ER for evaluation. In ER, appears to be in acute heart failure with proBNP elevated at 5540. Chest XR with
possible pneumonia versus fluid collection in fissure. He is in SR on review of telemetry and by initial EKG with stable heart rates. He was evaluated by nephrology as they primarily manage his diuretics due to history of CKD as well as nephrotic
syndrome. He has been started on IV lasix 80mg BID and notes good response to this so far. He had recent renal biopsy 2 days ago which reportedly was consistent with membranous nephropathy.
Progress Note - Street Openings Inspector
Subjective
Date of Service: June 22, 2025
No chest pain or shortness of breath
Objective
Labs:
06/22/25 05:05
06/22/25 05:05
Labs
Hgb 12.4 g/dL (13.0-18.0) L 06/22/25 05:05
Hct 38.7 % (39.0-52.0) L 06/22/25 05:05
Plt Count 186 10^3/uL (130-400) 06/22/25 05:05
Sodium 138 mmol/L (135-145) 06/22/25 05:05
Potassium 4.6 mmol/L (3.5-5.1) 06/22/25 05:05
BUN 53 mg/dl (9-20) H 06/22/25 05:05
Creatinine 1.7 mg/dL (0.7-1.3) H 06/22/25 05:05
Glucose 105 mg/dl (70-99) H 06/22/25 05:05
Troponins
06/20/25 06/20/25 06/21/25
11:20 18:17 00:30
Troponin I 0.015 0.017 Cancelled
06/21/25
04:50
Troponin I 0.019
Vital Signs and I&O:
Vital Signs
Temp Pulse Resp BP Pulse Ox
98.6 F 59 24 154/67 97
06/22/25 07:55 06/22/25 07:34 06/22/25 07:34 06/22/25 06:00 06/22/25 07:34
Vital Signs
Temp Pulse Resp BP Pulse Ox
98.6 F 59 24 154/67 97
06/22/25 07:55 06/22/25 07:34 06/22/25 07:34 06/22/25 06:00 06/22/25 07:34
Intake & Output
06/20/25 06/21/25 06/22/25 06/23/25
06:59 06:59 06:59 06:59
Intake Total 120 / 120 1180 / 1180
Output Total 1300 / 1300 1425 / 1425
Balance -1180 / -1180 -245 / -245
Physical Exam
Physical Exam
General: Well developed, well nourished in NAD.
Neck: Supple, no JVD, HJR, carotids +2 B/L, no bruits bilaterally.
Heart: Non displaced PMI, RRR, no murmurs, No S3, S4, no rubs.
Lungs: Scattered rhonchi at the bases
Extremities: No clubbing, cyanosis or edema bilaterally.
Neuro: Grossly nonfocal, awake, alert and oriented x3.
--- NOTE | 2025-06-22 08:30 | W.PN.NEPH.PH ---
Today's Communication / Plan
-
increase lasix to 80mg IV TID and add metolazone 2.5mg
Per CT of abdomen chest and pelvis today
creatinine stable
Assessment/Plan
-
Impression:
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
Decompensated congestive heart failure: Likely secondary to renal failure
History of HFpEF
Pulmonary hypertension
History of recent incarcerated left inguinal hernia repair on 02/23/2025
Anemia
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
CKD (1.6): Renal ultrasound notes bilateral renal cysts no hydronephrosis normal size kidneys)
History of hypertension
History of pulmonary hypertension
History of moderate MR
PAD with moderate to severe claudication
Plan:
-The patient is clinically volume overloaded and requires high-dose IV diuretics at 80 mg IV twice daily in the setting of decompensated congestive heart failure due to nephrotic syndrome
-I will increase lasix 80mg IV TID 2.5 mg to augment diuresis
-checked postvoid bladder scans to assure there is no obstructive component to his diuresis
-His creatinine is actually within his baseline at this time in regards to his CKD
-I had a discussion with the nephro pathologist from [facility] in regards to the patient's renal biopsy that he underwent on 06/17/2025. The patient's biopsy report was consistent with membranous nephropathy. The patient's anti-PLA2R
antibody however has been negative and henceforth it appears that this may be a secondary variant of membranous nephropathy. Secondary membranous nephropathy can be attributed to underlying malignancies and henceforth we will have to pursue more
full malignancy workup. I will also include hepatitis and cryoglobulin serologies. The patient reportedly has had a recent colonoscopy which was negative.
- We should obtain a PSA, none IV contrast CT of chest abdomen and pelvis, and dysproteinemia workup which would include SPEP, BEA, serum free light chain kappa lambda ratio, hepatitis serology, cryoglobulin
-Hepatitis serologies negative, cryoglobulins pending, PSA normal
-For noncontrast CT of chest abdomen and pelvis today
- If in fact no secondary causality can be obtained I would then consider treating this as a primary variant with rituximab, however this agent is often hard to obtain for the treatment of membranous as most insurances do not recognize the indication
-If I am unable to diurese patient effectively with IV diuretics we may need to implement dialysis
-Patient at high clinical risk given persistent kidney disease and volume overload refractory to IV diuretics
- Maintain current antihypertensive regimen
-
-
Date of Service: June 22, 2025
CC / HPI / ROS
-
Chief Complaint:
CKD/membranous nephropathy
History of Present Illness:
Creatinine stable at 1.7 baseline
Hemodynamically stable
on IV diuresis for volume overload
Review of Systems:
Nonoliguric
Weight unchanged
Remains on oxygen therapy but no reported shortness of breath or chest
Labs
-
Labs:
WBC 10.6 10^3/uL (4.8-10.8) 06/22/25 05:05
RBC 4.50 10^6/uL (4.70-6.10) L 06/22/25 05:05
Hgb 12.4 g/dL (13.0-18.0) L 06/22/25 05:05
Hct 38.7 % (39.0-52.0) L 06/22/25 05:05
Plt Count 186 10^3/uL (130-400) 06/22/25 05:05
Sodium 138 mmol/L (135-145) 06/22/25 05:05
Potassium 4.6 mmol/L (3.5-5.1) 06/22/25 05:05
Chloride 107 mmol/L (98-107) 06/22/25 05:05
Carbon Dioxide 31 mmol/L (22-30) H 06/22/25 05:05
BUN 53 mg/dl (9-20) H 06/22/25 05:05
Creatinine 1.7 mg/dL (0.7-1.3) H 06/22/25 05:05
eGFR 39.75 06/22/25 05:05
Glucose 105 mg/dl (70-99) H 06/22/25 05:05
Calcium 7.7 mg/dl (8.4-10.2) L 06/22/25 05:05
Psr-[id number] Pept 5540 pg/ml 06/20/25 11:20
Albumin 2.3 g/dl (3.5-5.0) L 06/22/25 05:05
Physical Exam
-
Vital Signs:
Vital Signs
Temp Pulse Resp BP Pulse Ox
98.6 F 59 24 154/67 97
06/22/25 07:55 06/22/25 07:34 06/22/25 07:34 06/22/25 06:00 06/22/25 07:34
Cardiovascular:: Regular rate and rhythm
Respiratory:: Bilateral: Coarse (With some fine crackles at base)
Lung Excursion:: Normal
Abdomen:: Nontender and Soft
Bowel Sounds:: Normal
Extremity Edema:: +1: Bilateral:
Rey Catheter: No
--- NOTE | 2025-06-22 08:41 | PTCARENOTE ---
Patient received from material handler 1st shift. Patient resting comfortably in bed. AAO, VSS. No events noted over night. No complaints of pain at this time. Breakfast ordered. Currently on 2L N/C, will attempt to wean. No fluids through IV. Lasix is
being increased and Zaroxolyn being added. Patient still able to use urinal and restroom, x1 assist. Patient scheduled for AB/Chest/Pelv CT this AM, no other testing at this time. Call loyola in reach.
[2025-06-22] MEDS: LASIX IV (09:02)
[2025-06-22] MEDS: DUONEB 3 ML INH (09:05)
[2025-06-22] MEDS: FARXIGA 10 MG PO (09:06)
[2025-06-22] MEDS: ZAROXOLYN 2.5 MG PO (09:06)
[2025-06-22] MEDS: NORVASC 5 MG PO (09:06)
[2025-06-22] MEDS: ASPIR LOW (ENTERIC COATED) 81 MG PO (09:06)
[2025-06-22] MEDS: APRESOLINE 37.5 MG PO ×2 (09:06→20:46)
[2025-06-22] MEDS: COREG 6.25 MG PO ×2 (09:06→20:47)
[2025-06-22] MEDS: PROTONIX 40 MG PO (09:06)
[2025-06-22] MEDS: LASIX 80 MG IV ×3 (09:07→20:44)
--- NOTE | 2025-06-22 15:40 | W.PN.HOSP.TC ---
Addendum entered and electronically signed by Eboni Wilson MD 06/22/25 16:11:
I saw and evaluated the patient independently. I reviewed the resident�s note and agree with findings and plan as documented by Dr. Lincoln.
GENERAL: well developed, well nourished, male in no apparent distress but endorses SOB
HEENT: NC/AT--O2 NC in place
HEART: regular rate and rhythm, +S1, +S2, bradycardic
LUNGS : crackles bilaterally with mild resp distress--winded with speaking
ABDOM: soft, nontender, nondistended, + bowel sounds
EXT: no cyanosis, clubbing--2+ LE edema bilaterally with redness to mid ojeda bilaterally and scratch on left ojeda
NEUROLOGIC: grossly intact
Nephrotic syndrome with membranous nephropathy (dx by biopsy 06/17/25)--now with Acute diastolic CHF exacerbation--weight gain despite escalating diuretics at home--apprec renal/cards--cont daily weights, I/Os, lasix 80 mg IV TID with
metolazone--Echo April 2025 showed preserved ejection fraction--creat at baseline--suspect headed toward dialysis if unable to respond to diuretics
membranous nephropathy--Renal biopsy from 06/17/2025 revealed anti-�PLA2R antibody negative, which may suggest a secondary variant of membranous nephropathy--apprec renal--initiating w/u for secondary variants--CT scan chest/abdomen/pelvis
essentially unremarkable except for Possible left renal soft tissue mass? or is this related to his recent renal biopsy (creat 1.6 at baseline)--SPEP/UPEP, etc--�Bilateral duplex venous ultrasound neg for DVT
essential HTN--multidrug resistant (amlodipine, bumex, carvedilol, hydralazine, spironolactone)--blood pressure elevated--adjusting meds
bradycardia--HR 40s--decreased carvedilol dose--follow--apprec cards--parameters placed
Right lung base opacity--CXR revealed well marginated opacity within the right lung base measuring 6.1 x 5.4 cm which seems to correspond to small loculated pleural effusion by CT scan
Depression--sertraline
GERD--omeprazole
DVT proph
code status--FULL CODE
Original Note:
Today's Communication/Plan
-
- trend weight, in and outs, CMP, await results of CT scan, nephrology/ cardiology following
Assessment / Plan
Assessment / Plan
# Nephrotic syndrome with membranous nephropathy
# Acute CHF exacerbation
#abdominal fullness
Renal biopsy from 06/17/2025 revealed membranous nephropathy with anti-� PLA2R antibody negative, which may suggest a secondary variant of membranous nephropathy. Secondary variant of membranous nephropathy can be attributed to underlying
malignancies.
Echo April 2025 showed preserved ejection fraction
EKG showed normal sinus rhythm with no acute ischemic change
Troponin 0.015, no chest pain
�Cardiology consulted. Follows with Dr. Nuñez.
-blood pressure elevated. Monitor BP.
�Creatinine 06/21/2025 1.6, which is near his baseline. Trend BMP.
�Bilateral duplex venous ultrasound ordered due to risk of hypercoagulability from nephrotic syndrome-- negative
- Nephrology consulted and following. Recommend continuing IV Lasix 80 Mg TID with metolazone. Holding bumetanide for now, will consult nephrology regarding further diuresis regimen.
- Todays weight is 79.7 kgs from 79.5 kgs yesterday, indicating ineffective diuresis.
- Follow daily weights, I&Os, sodium restricted diet, salt restricted diet.
- Bladder scan ordered.
- PSA negative indicating negative prostate cancer probability.
- Ordered CT abdomen pelvis without iv contrast shows the liver, spleen, gallbladder and pancreas are unremarkable. Left inguinal hernia is seen.
- Nephrology ordered SPEP, BEA, serum free light chain kappa lambda ratio, hepatitis serology, cryoglobulin.
# Right lung base opacity
CXR revealed well marginated opacity within the right lung base measuring 6.1 x 5.4 cm which may represent a pneumonia with a developing abscess. This could also represent loculated fluid within the fissure. Mild thickening of the right minor
fissure. Diffusely increased interstitial opacities bilaterally.
-Given history of nephrotic syndrome, this could be a pneumonia versus pleural effusion versus malignancy.
- ct chest without IV shows Small bilateral loculated pleural effusions. This corresponds to the recent right lung radiographic finding. will consider the possibility of a thoracocentesis.
#bradycardia:
- His heart rate is 53 in the room monitor . continue lower dose of his carvedilol to 6.25 mg bid first to see if there is a response. Previous EKGs show normal HR above 60.
# Hypertension
- continue amlodipine, carvedilol, hydralazine, spironolactone
- blood pressure is 138/60 and stable.
# Depression
- continue sertraline
# GERD
- continue omeprazole
Anticipated Discharge: 24 - 48 hours
Subjective/Interval History
-
Date of Service: June 22, 2025
patient is complaining of abdominal fullness and difficulty breathing on exertion.
Objective Data
-
Labs:
Laboratory Results
06/22/25
05:05
WBC 10.6
Hgb 12.4 L
Hct 38.7 L
Plt Count 186
Sodium 138
Potassium 4.6
Chloride 107
Carbon Dioxide 31 H
BUN 53 H
Creatinine 1.7 H
Glucose 105 H
Calcium 7.7 L
Total Bilirubin 0.3
AST 21
ALT 11
Alkaline Phosphatase 122
Vital Signs:
Vital Signs
Temp Pulse Resp BP Pulse Ox
98.0 F 53 18 138/60 95
06/22/25 12:01 06/22/25 14:00 06/22/25 14:00 06/22/25 13:50 06/22/25 14:00
I&O
06/21/25 06/22/25 06/23/25
06:59 06:59 06:59
Intake Total 120 / 120 1180 / 1180
Output Total 1300 / 1300 1425 / 1425
Balance -1180 / -1180 -245 / -245
Review of Systems
-
History Source: Patient
All other systems: Reviewed and negative
Respiratory: Reports Trouble Breathing
Abdomen/GI: Reports Abdominal Pain
Physical Exam
-
General: Appears in Distress and Pain
Respiratory: Crackles (bilaterally at the base of both lungs )
Cardiac: Regular Rhythm and S1/S2
GI: Soft, Nontender, Nondistended and Normal Bowel Sounds
Musculoskeletal: Edema, Right Lower Extrem and Edema, Left Lower Extrem
Skin: Warm and Dry
Neuro: AO x 3
Data Reviewed
-
Labs: Labs Reviewed by me and Discussed with Physician
[2025-06-22] MEDS: LOVENOX 40 MG SC (16:57)
[2025-06-22] MEDS: ZOLOFT 25 MG PO (20:46)
[2025-06-23] VITALS (16 sets, daily range): BP systolic 122–165; BP diastolic 45–79; BMI 25.8; BMI 25.5
--- NOTE | 2025-06-23 01:01 | PTCARENOTE ---
Assumed care of patient from alexandrea RN. Pt aaox3. sinus nora w/ BBB on the monitor. SpO2 94% on 2L NC. VS and assessment as documented. Pt resting in bed with call loyola in reach.
[2025-06-23 05:04] LABS: Hematocrit 36.5 % (39.0-52.0); Hemoglobin 11.6 g/dL (13.0-18.0); Mean Corp Hgb Conc. 31.8 g/dL (33.0-37.0); Mean Corpuscular Volume 85.9 fL (80.0-94.0); Nucleated Red Blood Cells % 0 % (-); Platelet Count 162 10^3/uL (130-400); Red Cell Dist. Width 15.2 % (11.5-14.5)
[2025-06-23 05:40] LABS: ALT (SGPT) < 10 U/L (0-50); AST (SGOT) 20 U/L (17-59); Albumin 2.1 g/dl (3.5-5.0); Alkaline Phosphatase 103 U/L (38-126); Blood Urea Nitrogen 54 mg/dl (9-20); Calcium 7.7 mg/dl (8.4-10.2); Carbon Dioxide 31 mmol/L (22-30); Chloride 104 mmol/L (98-107); Estimated Creatinine Clearance 33 ml/min; Glucose 90 mg/dl (70-99); Magnesium 2.2 mg/dl (1.6-2.3); Potassium 4.4 mmol/L (3.5-5.1); Sodium 136 mmol/L (135-145); Total Protein 5.0 g/dl (6.3-8.2); eGFR 39.51
[2025-06-23] MEDS: PROTONIX 40 MG PO (07:55)
[2025-06-23] MEDS: ASPIR LOW (ENTERIC COATED) 81 MG PO (07:55)
[2025-06-23] MEDS: APRESOLINE 37.5 MG PO ×2 (07:59→20:04)
[2025-06-23] MEDS: FARXIGA 10 MG PO (08:01)
[2025-06-23] MEDS: NORVASC 5 MG PO (08:01)
[2025-06-23] MEDS: ALDACTONE 12.5 MG PO (08:02)
[2025-06-23] MEDS: COREG 6.25 MG PO (08:02)
[2025-06-23] MEDS: ZAROXOLYN 2.5 MG PO (08:03)
[2025-06-23] MEDS: LASIX 80 MG IV ×3 (08:04→23:04)
[2025-06-23] MEDS: SPIRIVA RESPIMAT 2.5 MCG 2 PUFF INH (08:15)
[2025-06-23] MEDS: SYMBICORT 80/4.5 MCG INHALER 2 PUFF INH ×2 (08:15→19:49)
--- NOTE | 2025-06-23 09:42 | W.PN.UPDATE ---
Update Note
Progress Note Update
I saw and evaluated the patient. I reviewed the resident�s note and agree with findings and plan as documented in the resident�s note.
Denies SOB.
Gen: NAD, Awake and alert
Eyes: EOMI, PERRLA, no scleral icterus.
Neck: supple.
CV: nora, reg rhythm, +S1/S2, no m/r/g.
Resp: dec BS in the bases, otherwise CTAB, no rales, wheezes, or rhonchi.
Abd: +BS, soft, NT, ND
Skin: No rashes. 3+ B/L LE edema
Neuro: CN 2-12 intact, non-focal.
Psych: Normal mood and affect.
CT C/A/P: Fat-containing left inguinal hernia with mild fluid. This can be seen with developing incarceration/strangulation. Small bilateral loculated pleural effusions. This corresponds to the recent right lung radiographic finding. Possible left
renal soft tissue mass. Nonurgent dedicated CT of the kidneys pre- and post-IV contrast or MRI examination recommended. Tiny pericardial effusion versus pericardial thickening. Findings consistent with prior benign granulomatous disease. A couple
too small to characterize hypodense hepatic lesions likely small cysts or hemangiomas. Bilateral too small to characterize hypodense renal lesions likely benign cysts. A couple hyperdense subcentimeter left renal lesions likely benign proteinaceous
cysts is mild fecal material in colon.
B/L LE U/S: No sonographic evidence for lower extremity venous thrombosis.
Acute HFpEF:
-cont Lasix 80mg IV TID and daily Zaroxolyn
-daily wts, I/Os
-cont BB/aldactone/Farxiga
-cards following
Nephrotic syndrome with membranous nephropathy:
-dx'd by biopsy 06/17/25, anti-PLA2R Ab NEG which may suggest a secondary variant of membranous nephropathy
-acute viral hepatitis panel (B+C) NEG
-SPEP, immunoglobulins, cryoglobulin, free kappa/lambda pending
-renal following
Other problems:
Multidrug-resistant essential HTN: Cont Norvasc/Aldactone/Hydralazine/Coreg a
Bradycardia: Hold parameters placed on Coreg
Depression: cont Zoloft
GERD: cont PPI
FULL/Lovenox
--- NOTE | 2025-06-23 10:01 | W.PN.HOSP.TC ---
Today's Communication/Plan
-
Continue IV Lasix 80 Mg TID with metolazone, beta-vicky/Aldactone/Farxiga
Decrease carvedilol from 6.25 Mg to 3.125 Mg PO BID
Cardiology following
Nephrology following
Assessment / Plan
Assessment / Plan
A 85-year-old male with a past medical history of CHF, nephrotic syndrome, CKD, hypertension and COPD who presented with progressive shortness of breath and leg swelling.� Patient got a kidney biopsy done 2 days ago at [place], and has had
progressive leg swelling with shortness of breath, orthopnea and abdominal distention.� Per , normally his weight is 166 lbs, but it was 177 lbs this morning. Renal biopsy from 06/17/2025 revealed membranous nephropathy.
CT abdomen/pelvis: Fat-containing left inguinal hernia with mild fluid. This can be seen with developing incarceration/strangulation. Small bilateral loculated pleural effusions. This corresponds to the recent right lung radiographic finding.
Possible left renal soft tissue mass. Nonurgent dedicated CT of the kidneys pre- and post-IV contrast or MRI examination recommended. Tiny pericardial effusion versus pericardial thickening. Findings consistent with prior benign granulomatous
disease. A couple too small to characterize hypodense hepatic lesions likely small cysts or hemangiomas. Bilateral too small to characterize hypodense renal lesions likely benign cysts. A couple hyperdense subcentimeter left renal lesions likely
benign proteinaceous cysts is mild fecal material in colon.
Bilateral lower extremity ultrasound: No sonographic evidence for lower extremity venous thrombosis.
Assessment/Plan:
# Nephrotic syndrome with membranous nephropathy
Renal biopsy from 06/17/2025 revealed membranous nephropathy with anti-� PLA2R antibody negative, which may suggest a secondary variant of membranous nephropathy.� Secondary variant of membranous nephropathy can be attributed to underlying
malignancies.
CT abdomen/pelvis as above.
-Nephrology consulted and following. Hold bumetanide. Recommend continuing IV Lasix 80 Mg TID with metolazone. �Possible dialysis if patient still unresponsive to diuresis.
-SPEP, immunoglobulins, cryoglobulin, free kappa/lambda pending.
-Acute viral hepatitis panel (B/C)- NEGATIVE.
�Creatinine 06/23/2025 1.7, which is near his baseline. Trend BMP.
�Bilateral duplex venous ultrasound ordered due to risk of hypercoagulability from nephrotic syndrome- NEGATIVE
-PSA negative, low prostate cancer probability�
# Acute diastolic CHF exacerbation
Echo April 2025 showed preserved ejection fraction
EKG showed normal sinus rhythm with no acute ischemic change
Troponin 0.015, no chest pain
�Cardiology consulted and following.� Continue beta vicky, aldactone, Farxiga.�
�Follow daily weights, I&Os. Weight 06/23/25 4:20 AM 79.3 kg, decreased to 78.2 at 7:54 AM.�
-Continue sodium restricted diet.
# Right lung base opacity
CXR revealed well marginated opacity within the right lung base measuring 6.1 x 5.4 cm which may represent a pneumonia with a developing abscess.� This could also represent loculated fluid within the fissure.� Mild thickening of the right minor
fissure.� Diffusely increased interstitial opacities bilaterally.
CT chest with IV contrast: small bilateral loculated pleural effusions.
-Given history of nephrotic syndrome, this could be a pneumonia versus pleural effusion versus malignancy.
- Consider possibility of thoracentesis.
#Bradycardia
-Heart rate 44 today 06/23/25, Carvedilol from 6.25 to 3.125 mg PO BID.�
- Monitor heart rate.
# Hypertension
-Continue Norvasc/Aldactone/Hydralazine/Coreg
# Depression
-Continue Zoloft
# GERD
�Continue PPI
DVT prophylaxis: Lovenox�
Full code
Anticipated Discharge: > 48 hours
Subjective/Interval History
-
Date of Service: June 23, 2025
Patient states he feels well. Denies shortness of breath or chest pain. No other new symptoms.
Objective Data
-
Labs:
Laboratory Results
06/23/25
04:15
WBC 6.6
Hgb 11.6 L
Hct 36.5 L
Plt Count 162
Sodium 136
Potassium 4.4
Chloride 104
Carbon Dioxide 31 H
BUN 54 H
Creatinine 1.7 H
Glucose 90
Calcium 7.7 L
Total Bilirubin 0.3
AST 20
ALT < 10
Alkaline Phosphatase 103
Vital Signs:
Vital Signs
Temp Pulse Resp BP Pulse Ox
98.2 F 73 18 165/67 97
06/23/25 03:15 06/23/25 08:19 06/23/25 08:19 06/23/25 08:04 06/23/25 08:19
I&O
06/22/25 06/23/25 06/24/25
06:59 06:59 06:59
Intake Total 1180 / 1180 240 / 240 480 / 480
Output Total 1425 / 1425 2550 / 2550 200 / 200
Balance -245 / -245 -2310 / -2310 280 / 280
Review of Systems
-
History Source: Patient
Constitutional: Reports No Symptoms
EENT: Reports No Symptoms Reported
Respiratory: Reports No Symptoms
Cardiac: Reports No Symptoms
Abdomen/GI: Reports No Symptoms
Breast: Reports No Symptoms
Genitourinary: Reports No Symptoms
Musculoskeletal: Reports No Symptoms
Skin: Reports No Symptoms
Endocrine: Reports No Symptoms
Hematologic / Lymphatic: Reports No Symptoms
Allergy / Immunology: Reports No Symptoms
Physical Exam
-
General: Well Developed, Well Nourished, No Apparent Distress, Comfortable and Conversant
HEENT: Normocephalic, Atraumatic, Moist Mucous Membranes and Anicteric
Respiratory: Crackles (Diffusely, more prominent at the lower bases.)
Cardiac: Regular Rhythm and S1/S2
GI: Soft, Nontender, Nondistended, Normal Bowel Sounds and No Hepatosplenomegaly
Musculoskeletal: No Clubbing, No Cyanosis, Edema, Right Lower Extrem (With skin redness over calves) and Edema, Left Lower Extrem (With skin redness over calves)
Neuro: Awake and AO x 3
Psych: Calm
Data Reviewed
-
Labs: Labs Reviewed by me and Discussed with Physician
Old Records: Reviewed
--- NOTE | 2025-06-23 10:22 | W.PN.CARDCBS ---
Today's Communication / Plan
-
Diuresis being managed by nephrology
Sign off
Impression / Plan
-
PCP: Dr. Chung
Application Systems Administrator: Dr. Cinthya Nuñez
Impression:
Presented with SOB, weight gain, LE edema
Acute on chronic HFpEF
Atrial tachycardia
CKD 3
Nephrotic syndrome
Moderate MR
PAD, abnormal L IVAN, mod to severe claudication
HTN
HLD
GERD
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
Pulmonary hypertension
Echo 04/10/2025: EF 63%, mild MR, trivial AR, mild to moderate TR, estimated PAP 48 to 51 mmHg, mild to moderate MN, trivial pericardial effusion
Plan:
His weight continues to decrease with diuresis being managed by nephrology
Creatinine remains stable at 1.7
Continue Farxiga, Coreg, hydralazine, and spironolactone.
Will sign off, call with questions
HPI: Macario is an 84 year old male with PMH of chronic HFpEF, atrial tachycardia, CKD 3, nephrotic syndrome, PAD, HTN, HLD, COPD, ILD, and GERD. Presented to [facility] ER for evaluation of worsening shortness of breath and weight gain with increased LE
edema over the past few weeks. He has continued to struggle as OP despite increasing his bumex dose and with worsening symptoms, came to ER for evaluation. In ER, appears to be in acute heart failure with proBNP elevated at 5540. Chest XR with
possible pneumonia versus fluid collection in fissure. He is in SR on review of telemetry and by initial EKG with stable heart rates. He was evaluated by nephrology as they primarily manage his diuretics due to history of CKD as well as nephrotic
syndrome. He has been started on IV lasix 80mg BID and notes good response to this so far. He had recent renal biopsy 2 days ago which reportedly was consistent with membranous nephropathy.
Progress Note - Application Systems Administrator
Subjective
Date of Service: June 23, 2025
No chest pain or shortness of breath
Objective
Labs:
06/23/25 04:15
06/23/25 04:15
Labs
Hgb 11.6 g/dL (13.0-18.0) L 06/23/25 04:15
Hct 36.5 % (39.0-52.0) L 06/23/25 04:15
Plt Count 162 10^3/uL (130-400) 06/23/25 04:15
Sodium 136 mmol/L (135-145) 06/23/25 04:15
Potassium 4.4 mmol/L (3.5-5.1) 06/23/25 04:15
BUN 54 mg/dl (9-20) H 06/23/25 04:15
Creatinine 1.7 mg/dL (0.7-1.3) H 06/23/25 04:15
Glucose 90 mg/dl (70-99) 06/23/25 04:15
Troponins
06/20/25 06/20/25 06/21/25
11:20 18:17 00:30
Troponin I 0.015 0.017 Cancelled
06/21/25
04:50
Troponin I 0.019
Vital Signs and I&O:
Vital Signs
Temp Pulse Resp BP Pulse Ox
97.4 F 53 17 165/67 97
06/23/25 07:30 06/23/25 10:00 06/23/25 10:00 06/23/25 08:04 06/23/25 08:19
Vital Signs
Temp Pulse Resp BP Pulse Ox
97.4 F 53 17 165/67 97
06/23/25 07:30 06/23/25 10:00 06/23/25 10:00 06/23/25 08:04 06/23/25 08:19
Intake & Output
06/21/25 06/22/25 06/23/25 06/24/25
06:59 06:59 06:59 06:59
Intake Total 120 / 120 1180 / 1180 240 / 240 480 / 480
Output Total 1300 / 1300 1425 / 1425 2550 / 2550 200 / 200
Balance -1180 / -1180 -245 / -245 -2310 / -2310 280 / 280
Physical Exam
Physical Exam
General: Well developed, well nourished in NAD.
Neck: Supple, no JVD, HJR, carotids +2 B/L, no bruits bilaterally.
Heart: Non displaced PMI, RRR, no murmurs, No S3, S4, no rubs.
Lungs: Scattered rhonchi
Extremities: No clubbing, cyanosis or edema bilaterally.
Neuro: Grossly nonfocal, awake, alert and oriented x3.
--- NOTE | 2025-06-23 10:54 | W.PN.NEPH.PH ---
Today's Communication / Plan
-
Add amiloride
Continue diuretic regimen
Assessment/Plan
-
Impression:
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
Decompensated congestive heart failure: Likely secondary to renal failure
History of HFpEF
Pulmonary hypertension
History of recent incarcerated left inguinal hernia repair on 02/23/2025
Anemia
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
CKD (1.6): Renal ultrasound notes bilateral renal cysts no hydronephrosis normal size kidneys)
History of hypertension
History of pulmonary hypertension
History of moderate MR
PAD with moderate to severe claudication
Plan:
-The patient is clinically volume overloaded and requires high-dose IV diuretics at 80 mg IV twice daily in the setting of decompensated congestive heart failure due to nephrotic syndrome
- Continue lasix 80mg IV TID/2.[address] Lechuga spoke with nephro pathologist from [facility] in regards to the patient's renal biopsy that he underwent on 06/17/2025. The patient's biopsy report was consistent with membranous nephropathy. The patient's anti-PLA2R antibody
however has been negative and henceforth it appears that this may be a secondary variant of membranous nephropathy. Secondary membranous nephropathy can be attributed to underlying malignancies/full workup
hepatitis and cryoglobulin serologies.
reportedly has had a recent colonoscopy which was negative.
CT of chest abdomen and pelvis =Possible left renal soft tissue mass. Nonurgent dedicated CT of the kidneys pre- and post-IV contrast or MRI examination recommended
consider treating this as a primary variant with rituximab/or calcineurin inhibitor = unlikely to get approval from insurance/would consider [facility] consultation if pursuing Rituxan
Responding well to diuresis over the last 24 hours-2.3 L
No acute need for dialysis
Will add amiloride (ENac inhibitor) in setting of severe nephrotic syndrome with persistent third space
Will discontinue spironolactone with addition of amiloride
Monitor bicarb closely with aggressive diuresis
=====
High complexity
-
-
Date of Service: June 23, 2025
CC / HPI / ROS
-
Chief Complaint:
CKD/membranous nephropathy
History of Present Illness:
Creatinine stable at 1.7 baseline
Hemodynamically stable
on IV diuresis for volume overload
Review of Systems:
Nonoliguric
Remains on oxygen therapy but no reported shortness of breath or chest
Labs
-
Labs:
WBC 6.6 10^3/uL (4.8-10.8) 06/23/25 04:15
RBC 4.25 10^6/uL (4.70-6.10) L 06/23/25 04:15
Hgb 11.6 g/dL (13.0-18.0) L 06/23/25 04:15
Hct 36.5 % (39.0-52.0) L 06/23/25 04:15
Plt Count 162 10^3/uL (130-400) 06/23/25 04:15
Sodium 136 mmol/L (135-145) 06/23/25 04:15
Potassium 4.4 mmol/L (3.5-5.1) 06/23/25 04:15
Chloride 104 mmol/L (98-107) 06/23/25 04:15
Carbon Dioxide 31 mmol/L (22-30) H 06/23/25 04:15
BUN 54 mg/dl (9-20) H 06/23/25 04:15
Creatinine 1.7 mg/dL (0.7-1.3) H 06/23/25 04:15
eGFR 39.51 06/23/25 04:15
Glucose 90 mg/dl (70-99) 06/23/25 04:15
Calcium 7.7 mg/dl (8.4-10.2) L 06/23/25 04:15
Ned-J-Uuacgealniv Pept 5540 pg/ml 06/20/25 11:20
Albumin 2.1 g/dl (3.5-5.0) L 06/23/25 04:15
Physical Exam
-
Vital Signs:
Vital Signs
Temp Pulse Resp BP Pulse Ox
97.4 F 53 17 165/67 97
06/23/25 07:30 06/23/25 10:00 06/23/25 10:00 06/23/25 08:04 06/23/25 08:19
Cardiovascular:: Regular rate and rhythm
Respiratory:: Bilateral: Coarse (With some fine crackles at base)
Lung Excursion:: Normal
Abdomen:: Nontender and Soft
Bowel Sounds:: Normal
Extremity Edema:: +1: Bilateral:
Rey Catheter: No
[2025-06-23] MEDS: MIDAMOR 10 MG PO (11:35)
--- NOTE | 2025-06-23 13:25 | PTCARENOTE ---
Verbal report given to 3W RN Katelin. Patient transported via stretcher by patient transport. Belongings transferred with patient.
--- NOTE | 2025-06-23 16:51 | PTCARENOTE ---
Patient AOx3. Forgetful at times. Per granddaughter patient has hx of 'early onset dementia'. Bed and chair alarm on audible. [place]. 2L NC with SpO2 greater than 92%. NSR-sinus nora with BBB, PVC's and PAC's on monitor. BP stable. Utilizes urinal. 2
brown formed BM's during shift. Stand by assist when OOB. Call loyola within reach, bed in lowest position, and bed of wheels locked.
[2025-06-23] MEDS: LOVENOX 40 MG SC (17:03)
--- NOTE | 2025-06-23 17:28 | CM ---
Chart reviewed, patient needs PT/OT evaluations, to assist with discharge planning needs.
Plan; Await PT/OT.
[2025-06-23] MEDS: COREG 3.125 MG PO (20:04)
[2025-06-23] MEDS: ZOLOFT 25 MG PO (23:04)
[2025-06-24] VITALS (17 sets, daily range): BP systolic 97–172; BP diastolic 47–95; BMI 25.1
[2025-06-24] MEDS: APRESOLINE 10 MG IV (00:05)
--- NOTE | 2025-06-24 01:20 | W.PN.UPDATE ---
Update Note
Progress Note Update
patient reports feeling 'sour' in his mid abdomen and also complaining 'pressure' pain at b/l lower chest right above the abdomen, Denies nausea, but notice spitting up clear mucous. VS 168/72 18 97% 58
Will order tums, IV Dilauded 0.25mg.
IV protonix given and patient resting in bed comfortably at present, no new complaints.
[2025-06-24] MEDS: DILAUDID 0.25 MG IV (01:25)
[2025-06-24] MEDS: TUMS CHEWABLE TABLET 200 MG PO (01:25)
[2025-06-24] MEDS: NSS (PRESERVATIVE FREE) 10 ML IV (04:41)
[2025-06-24] MEDS: PROTONIX IV 40 MG IV (04:42)
[2025-06-24 04:53] LABS: Hematocrit 36.5 % (39.0-52.0); Hemoglobin 11.9 g/dL (13.0-18.0); Mean Corp Hgb Conc. 32.6 g/dL (33.0-37.0); Mean Corpuscular Volume 84.5 fL (80.0-94.0); Nucleated Red Blood Cells % 0 % (-); Platelet Count 167 10^3/uL (130-400); Red Cell Dist. Width 14.9 % (11.5-14.5)
--- NOTE | 2025-06-24 05:00 | PTCARENOTE ---
Assumed care of patient from daysmift RN. Pt aaox3. sinus nora w/ BBB on the monitor, hr 50s. SpO2 93% on 2L NC. VS and assessment as documented. Pt c/o pain in his upper abdomen and a sour taste in his mouth. ROCHELLE Best notified and examined
patient at bedside. TUMS and Dilaudid ordered and administered. Pt asleep in bed with call loyola in reach.
[2025-06-24 05:13] LABS: ALT (SGPT) 13 U/L (0-50); AST (SGOT) 21 U/L (17-59); Albumin 2.2 g/dl (3.5-5.0); Alkaline Phosphatase 101 U/L (38-126); Blood Urea Nitrogen 64 mg/dl (9-20); Calcium 8.1 mg/dl (8.4-10.2); Carbon Dioxide 32 mmol/L (22-30); Chloride 100 mmol/L (98-107); Estimated Creatinine Clearance 33 ml/min; Glucose 98 mg/dl (70-99); Magnesium 2.0 mg/dl (1.6-2.3); Potassium 4.7 mmol/L (3.5-5.1); Sodium 134 mmol/L (135-145); Total Protein 5.2 g/dl (6.3-8.2); eGFR 39.51
[2025-06-24] MEDS: SYMBICORT 80/4.5 MCG INHALER 2 PUFF INH ×2 (07:26→17:51)
[2025-06-24] MEDS: SPIRIVA RESPIMAT 2.5 MCG 2 PUFF INH (07:26)
[2025-06-24] MEDS: ZAROXOLYN 2.5 MG PO (07:55)
[2025-06-24] MEDS: PROTONIX 40 MG PO (07:55)
[2025-06-24] MEDS: MIDAMOR 10 MG PO (07:56)
[2025-06-24] MEDS: FARXIGA 10 MG PO (07:56)
[2025-06-24] MEDS: COREG 3.125 MG PO ×2 (07:56→21:11)
[2025-06-24] MEDS: ASPIR LOW (ENTERIC COATED) 81 MG PO (07:56)
[2025-06-24] MEDS: NORVASC 5 MG PO (07:56)
[2025-06-24] MEDS: APRESOLINE 37.5 MG PO ×2 (07:56→21:09)
[2025-06-24] MEDS: LASIX 80 MG IV ×3 (07:57→21:09)
--- NOTE | 2025-06-24 08:40 | PTCARENOTE ---
Patient c/o 5/10 chest pain/tightness. Patient is having a lot of belching. EKG completed and reviewed by the resident Dr. Montano at bedside. Scheduled protonix given. Patient ambulated to the bathroom assist x1 and then to the chair. Patient
stated that chest pain 'feels much better after getting out of the bed'. Care ongoing.
--- NOTE | 2025-06-24 10:07 | W.PN.HOSP.TC ---
Today's Communication/Plan
-
Continue Lasix 80 mg TID with metolazone and amiloride. Spironolactone discontinued.
Nephrology following.
Continue carvedilol, Aldactone, Farxiga.
Assessment / Plan
Assessment / Plan
A 85-year-old male with a past medical history of CHF, nephrotic syndrome, CKD, hypertension and COPD who presented with progressive shortness of breath and leg swelling.� Patient got a kidney biopsy done 2 days ago at [place], and has had
progressive leg swelling with shortness of breath, orthopnea and abdominal distention.� Per , normally his weight is 166 lbs, but it was 177 lbs this morning. Renal biopsy from 06/17/2025 revealed membranous nephropathy.
CT abdomen/pelvis: Fat-containing left inguinal hernia with mild fluid. This can be seen with developing incarceration/strangulation. Small bilateral loculated pleural effusions. This corresponds to the recent right lung radiographic finding.
Possible left renal soft tissue mass. Nonurgent dedicated CT of the kidneys pre- and post-IV contrast or MRI examination recommended. Tiny pericardial effusion versus pericardial thickening. Findings consistent with prior benign granulomatous
disease. A couple too small to characterize hypodense hepatic lesions likely small cysts or hemangiomas. Bilateral too small to characterize hypodense renal lesions likely benign cysts. A couple hyperdense subcentimeter left renal lesions likely
benign proteinaceous cysts is mild fecal material in colon.
Bilateral lower extremity ultrasound: No sonographic evidence for lower extremity venous thrombosis.
Assessment/Plan:
# Nephrotic syndrome with membranous nephropathy
Renal biopsy from 06/17/2025 revealed membranous nephropathy with anti-� PLA2R antibody negative, which may suggest a secondary variant of membranous nephropathy.� Secondary variant of membranous nephropathy can be attributed to underlying
malignancies.
CT abdomen/pelvis as above.
-Nephrology consulted and following. Hold bumetanide. Continuing IV Lasix 80 Mg TID with metolazone. Add amiloride in setting of severe nephrotic syndrome with persistent third space. Spironolactone discontinued.
- Responding well to diuresis, no need for acute dialysis.
- Monitor bicarb closely with agressive diuresis.
-SPEP, immunoglobulins, cryoglobulin, free kappa/lambda pending.
-Acute viral hepatitis panel (B/C)- NEGATIVE.
�Creatinine 06/23/2025 1.7, which is near his baseline. Trend BMP.
�Bilateral duplex venous ultrasound ordered due to risk of hypercoagulability from nephrotic syndrome- NEGATIVE
-PSA negative, low prostate cancer probability�
# Chest pain likely due to GERD
# GERD
EKG 06/24/25 showed sinus bradycardia and low voltage.
- Patient had an episode of chest pressure and 'sour taste' overnight 06/23/25, which was relieved after tums, IV Protonix and IV Dilaudid 0.25 mg
- Continue Protonix 40 mg PO daily.
# Acute diastolic CHF exacerbation
Echo April 2025 showed preserved ejection fraction
EKG showed normal sinus rhythm with no acute ischemic change
Troponin 0.015, no chest pain
�Cardiology consulted.� Continue beta vicky, aldactone, Farxiga.� Cardiology signed off 06/23/2025.
�Follow daily weights, I&Os.
-Continue sodium restricted diet.
# Right lung base opacity
CXR revealed well marginated opacity within the right lung base measuring 6.1 x 5.4 cm which may represent a pneumonia with a developing abscess.� This could also represent loculated fluid within the fissure.� Mild thickening of the right minor
fissure.� Diffusely increased interstitial opacities bilaterally.
CT chest with IV contrast: small bilateral loculated pleural effusions.
-Given history of nephrotic syndrome, this could be a pneumonia versus pleural effusion versus malignancy.
- Consider possibility of thoracentesis.
#Bradycardia
-Heart rate 44 today 06/23/25, Carvedilol from 6.25 to 3.125 mg PO BID.�
- Monitor heart rate.
# Hypertension
-Continue Norvasc/Aldactone/Hydralazine/Coreg
# Depression
-Continue Zoloft
DVT prophylaxis: Lovenox�
Full code
Anticipated Discharge: > 48 hours
Subjective/Interval History
-
Date of Service: June 24, 2025
Patient states he had an episode of chest pressure with associated ' sour taste' in his mouth last night. Patient had another similar episode this morning. No new complaints, and states he feels manager wind than before.
Objective Data
-
Labs:
Laboratory Results
06/24/25
04:30
WBC 7.7
Hgb 11.9 L
Hct 36.5 L
Plt Count 167
Sodium 134 L
Potassium 4.7
Chloride 100
Carbon Dioxide 32 H
BUN 64 H
Creatinine 1.7 H
Glucose 98
Calcium 8.1 L
Total Bilirubin 0.4
AST 21
ALT 13
Alkaline Phosphatase 101
Vital Signs:
Vital Signs
Temp Pulse Resp BP Pulse Ox
98.1 F 54 15 137/72 95
06/24/25 08:29 06/24/25 08:09 06/24/25 08:09 06/24/25 08:09 06/24/25 08:09
I&O
06/23/25 06/24/25 06/25/25
06:59 06:59 06:59
Intake Total 240 / 240 480 / 480 480 / 480
Output Total 2550 / 2550 2275 / 2275 250 / 250
Balance -2310 / -2310 -1795 / -1795 230 / 230
--- NOTE | 2025-06-24 10:25 | W.PN.UPDATE ---
Update Note
Progress Note Update
I saw and evaluated the patient. I reviewed the resident�s note and agree with findings and plan as documented in the resident�s note.
Denies SOB.
Gen: NAD, Awake and alert
Eyes: EOMI, PERRLA, no scleral icterus.
Neck: supple.
CV: remains nora, reg rhythm, +S1/S2, no m/r/g.
Resp: CTAB anteriorly, no rales, wheezes, or rhonchi.
Abd: +BS, soft, NT, ND
Skin: No rashes. 3+ B/L LE edema
Neuro: CN 2-12 intact, non-focal.
Psych: Normal mood and affect.
CT C/A/P: Fat-containing left inguinal hernia with mild fluid. This can be seen with developing incarceration/strangulation. Small bilateral loculated pleural effusions. This corresponds to the recent right lung radiographic finding. Possible left
renal soft tissue mass. Nonurgent dedicated CT of the kidneys pre- and post-IV contrast or MRI examination recommended. Tiny pericardial effusion versus pericardial thickening. Findings consistent with prior benign granulomatous disease. A couple
too small to characterize hypodense hepatic lesions likely small cysts or hemangiomas. Bilateral too small to characterize hypodense renal lesions likely benign cysts. A couple hyperdense subcentimeter left renal lesions likely benign proteinaceous
cysts is mild fecal material in colon.
B/L LE U/S: No sonographic evidence for lower extremity venous thrombosis.
Acute HFpEF:
-cont Lasix 80mg IV TID and daily Zaroxolyn
-daily wts, I/Os
-cont BB/Farxiga
-cards following
Nephrotic syndrome with membranous nephropathy:
-dx'd by biopsy 06/17/25, anti-PLA2R Ab NEG which may suggest a secondary variant of membranous nephropathy
-acute viral hepatitis panel (B+C) NEG
-SPEP, immunoglobulins, cryoglobulin, free kappa/lambda pending
-renal following
Other problems:
Multidrug-resistant essential HTN: Cont Norvasc/Aldactone/Hydralazine/Coreg
Bradycardia: Coreg decreased
Depression: cont Zoloft
GERD: cont PPI
FULL/Lovenox
--- NOTE | 2025-06-24 11:25 | W.PN.NEPH.PH ---
Today's Communication / Plan
-
Continue current diuretic regimen
Assessment/Plan
-
Impression:
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
Decompensated congestive heart failure: Likely secondary to renal failure
History of HFpEF
Pulmonary hypertension
History of recent incarcerated left inguinal hernia repair on 02/23/2025
Anemia
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
CKD (1.6): Renal ultrasound notes bilateral renal cysts no hydronephrosis normal size kidneys)
History of hypertension
History of pulmonary hypertension
History of moderate MR
PAD with moderate to severe claudication
Plan:
Dr. Lechuga spoke with nephro pathologist from [facility] in regards to the patient's renal biopsy that he underwent on 06/17/2025. The patient's biopsy report was consistent with membranous nephropathy. The patient's anti-PLA2R antibody
however has been negative and henceforth it appears that this may be a secondary variant of membranous nephropathy. Secondary membranous nephropathy can be attributed to underlying malignancies/full workup
hepatitis and cryoglobulin serologies.
reportedly has had a recent colonoscopy which was negative.
CT of chest abdomen and pelvis =Possible left renal soft tissue mass. Nonurgent dedicated CT of the kidneys pre- and post-IV contrast or MRI examination recommended
consider treating this as a primary variant with rituximab/or calcineurin inhibitor = unlikely to get approval from insurance/would consider [facility] consultation if pursuing Rituxan
No acute need for dialysis
06/23 Added amiloride (ENac inhibitor) in setting of severe nephrotic syndrome with persistent third space
Monitor bicarb closely with aggressive diuresis
-1.7 L yesterday with no change in weight
Continue with current regimen for now
Discussed with surgery who wants to proceed with hernia repair recurrent from February. Agree to pursue this on
We will reevaluate volume status tomorrow
=====
High complexity
-
-
Date of Service: June 24, 2025
CC / HPI / ROS
-
Chief Complaint:
CKD/membranous nephropathy
History of Present Illness:
Creatinine stable at 1.7 baseline
Hemodynamically stable
on IV diuresis for volume overload
Review of Systems:
Nonoliguric
Remains on oxygen therapy but no reported shortness of breath or chest
Labs
-
Labs:
WBC 7.7 10^3/uL (4.8-10.8) 06/24/25 04:30
RBC 4.32 10^6/uL (4.70-6.10) L 06/24/25 04:30
Hgb 11.9 g/dL (13.0-18.0) L 06/24/25 04:30
Hct 36.5 % (39.0-52.0) L 06/24/25 04:30
Plt Count 167 10^3/uL (130-400) 06/24/25 04:30
Sodium 134 mmol/L (135-145) L 06/24/25 04:30
Potassium 4.7 mmol/L (3.5-5.1) 06/24/25 04:30
Chloride 100 mmol/L (98-107) 06/24/25 04:30
Carbon Dioxide 32 mmol/L (22-30) H 06/24/25 04:30
BUN 64 mg/dl (9-20) H 06/24/25 04:30
Creatinine 1.7 mg/dL (0.7-1.3) H 06/24/25 04:30
eGFR 39.51 06/24/25 04:30
Glucose 98 mg/dl (70-99) 06/24/25 04:30
Calcium 8.1 mg/dl (8.4-10.2) L 06/24/25 04:30
Eil-H-Lmfixqisoiy Pept 5540 pg/ml 06/20/25 11:20
Albumin 2.2 g/dl (3.5-5.0) L 06/24/25 04:30
Physical Exam
-
Vital Signs:
Vital Signs
Temp Pulse Resp BP Pulse Ox
98.1 F 50 20 159/95 94
06/24/25 08:29 06/24/25 11:01 06/24/25 11:01 06/24/25 11:01 06/24/25 11:01
Cardiovascular:: Regular rate and rhythm
Respiratory:: Bilateral: Coarse (With some fine crackles at base)
Lung Excursion:: Normal
Abdomen:: Nontender and Soft
Bowel Sounds:: Normal
Extremity Edema:: +1: Bilateral:
Rey Catheter: No
--- NOTE | 2025-06-24 13:56 | PTCARENOTE ---
Patient AOx3. Forgetful at times. Bed and chair alarm on audible. CHEHALIS. 2L NC with SpO2 greater than 92%. NSR-sinus nora with BBB, PVC's and PAC's on monitor. BP stable. Utilizes urinal. Stand by assist when OOB. Call loyola within reach, bed in
lowest position, and bed of wheels locked.
--- NOTE | 2025-06-24 13:56 | CM ---
Patient seen at bedside
cont with diuresis
OR on hernia
will need PT/OT to assist with d/c needs
PLAN: TBD, follow hospital PAZ baker to follow for discharge needs
--- NOTE | 2025-06-24 16:14 | PTCARENOTE ---
Verbal report given to 2N CAREY Freedman. Patient transported in wheelchair by RN. Patient belongings transferred with patient.
[2025-06-24] MEDS: LOVENOX 40 MG SC (17:27)
--- NOTE | 2025-06-24 18:29 | PTCARENOTE ---
Received pt from IMU via wheelchair, AAOx3, VSS, pt ambulated to bed with assistance of one person to standby, o2 in use. Pt and oriented to room, pt resting comfortably in bed with call loyola at side.
[2025-06-24] MEDS: ZOLOFT 25 MG PO (21:09)
[2025-06-25] VITALS (7 sets, daily range): BP systolic 130–165; BP diastolic 62–73; BMI 24.9
[2025-06-25 02:30] LABS: Albumin 1.94 g/dL (3.75-5.01); Free Kappa Light Chains,Quant 119.77 mg/L (3.30-19.40); Free Lambda Light Chains,Quant 91.99 mg/L (5.71-26.30); Immunofixation Electrophoresis IFE Done; Kappa/Lambda Fr Light Ratio 1.30 (0.26-1.65); Total Protein-Electrophoresis 5.1 g/dL (6.3-8.2)
--- NOTE | 2025-06-25 02:53 | DOWNTIME ---
There was a [employer] Downtime on 06/25/2025 from 0100 to 06/25/2025 at 0235. Downtime documentation of patient's care, including medication administrations, has been reconciled in the electronic record per guidelines. Refer to the
patient's paper chart under the miscellaneous tab to see printed paper medication records and downtime forms.
[2025-06-25 07:39] LABS: Hematocrit 41.6 % (39.0-52.0); Hemoglobin 13.1 g/dL (13.0-18.0); Mean Corp Hgb Conc. 31.5 g/dL (33.0-37.0); Mean Corpuscular Volume 85.4 fL (80.0-94.0); Nucleated Red Blood Cells % 0 % (-); Platelet Count 205 10^3/uL (130-400); Red Cell Dist. Width 15.1 % (11.5-14.5)
[2025-06-25] MEDS: SPIRIVA RESPIMAT 2.5 MCG 2 PUFF INH (07:41)
[2025-06-25] MEDS: SYMBICORT 80/4.5 MCG INHALER 2 PUFF INH ×2 (07:41→17:54)
[2025-06-25 07:51] LABS: ALT (SGPT) 15 U/L (0-50); AST (SGOT) 25 U/L (17-59); Albumin 2.6 g/dl (3.5-5.0); Alkaline Phosphatase 108 U/L (38-126); Blood Urea Nitrogen 71 mg/dl (9-20); Calcium 8.3 mg/dl (8.4-10.2); Carbon Dioxide 31 mmol/L (22-30); Chloride 100 mmol/L (98-107); Estimated Creatinine Clearance 33 ml/min; Glucose 93 mg/dl (70-99); Magnesium 2.3 mg/dl (1.6-2.3); Potassium 5.2 mmol/L (3.5-5.1); Sodium 132 mmol/L (135-145); Total Protein 6.0 g/dl (6.3-8.2); eGFR 39.51
[2025-06-25] MEDS: APRESOLINE 37.5 MG PO ×2 (08:34→20:50)
[2025-06-25] MEDS: ASPIR LOW (ENTERIC COATED) 81 MG PO (08:36)
[2025-06-25] MEDS: FARXIGA 10 MG PO (08:36)
[2025-06-25] MEDS: COREG 3.125 MG PO ×2 (08:37→20:49)
[2025-06-25] MEDS: MIDAMOR 10 MG PO (08:38)
[2025-06-25] MEDS: LASIX 80 MG IV ×3 (08:38→22:49)
[2025-06-25] MEDS: NORVASC 5 MG PO (08:38)
[2025-06-25] MEDS: ZAROXOLYN 2.5 MG PO ×2 (08:40→20:49)
[2025-06-25] MEDS: KAYEXALATE SUSPENSION 15 GRAMS PO (08:40)
[2025-06-25] MEDS: PROTONIX 40 MG PO (08:40)
--- NOTE | 2025-06-25 09:11 | W.PN.HOSP.TC ---
Today's Communication/Plan
-
15 g Kayexalate given for hyperkalemia
Hernial repair tomorrow 06/26/25
Continue Lasix 80 Mg IV TID, amiloride, beta-vicky, Farxiga
Escalate metolazone to twice daily
Nephrology following
Assessment / Plan
Assessment / Plan
A 85-year-old male with a past medical history of CHF, nephrotic syndrome, CKD, hypertension and COPD who presented with progressive shortness of breath and leg swelling.� Patient got a kidney biopsy done 2 days ago at [place], and has had
progressive leg swelling with shortness of breath, orthopnea and abdominal distention.� Per , normally his weight is 166 lbs, but it was 177 lbs this morning. Renal biopsy from 06/17/2025 revealed membran[address] nephropathy.
CT abdomen/pelvis: Fat-containing left inguinal hernia with mild fluid. This can be seen with developing incarceration/strangulation. Small bilateral loculated pleural effusions. This corresponds to the recent right lung radiographic finding.
Possible left renal soft tissue mass. Nonurgent dedicated CT of the kidneys pre- and post-IV contrast or MRI examination recommended. Tiny pericardial effusion versus pericardial thickening. Findings consistent with prior benign granulomatous
disease. A couple too small to characterize hypodense hepatic lesions likely small cysts or hemangiomas. Bilateral too small to characterize hypodense renal lesions likely benign cysts. A couple hyperdense subcentimeter left renal lesions likely
benign proteinaceous cysts is mild fecal material in colon.
Bilateral lower extremity ultrasound: No sonographic evidence for lower extremity venous thrombosis.
Assessment/Plan:
# Nephrotic syndrome with membranous nephropathy
Renal biopsy from 06/17/2025 revealed membranous nephropathy with anti�PLA2R antibody negative, which may suggest a secondary variant of membranous nephropathy.� Secondary variant of membranous nephropathy can be attributed to underlying malignancies.
CT abdomen/pelvis as above.
�Nephrology consulted and following. Hold bumetanide. Continuing IV Lasix 80 Mg TID. Escalate metolazone to twice daily, and continue amiloride.
�Spironolactone discontinued 06/23/25.
�Responding well to diuresis, no need for acute dialysis.
�Creatinine 06/25/2025 1.7, which is near his baseline. Trend BMP.
�Acute viral hepatitis panel (B/C)- NEGATIVE.
�[place] lambda ratio 1.3, immunoglobulins normal, cryoglobulin pending
� Bilateral duplex venous ultrasound ordered due to risk of hypercoagulability from nephrotic syndrome- NEGATIVE
�PSA negative, low prostate cancer probability�
# Hyperkalemia
- K 5.2
- Ordered Kayexalate 15 mg, will trend BMP
# Left inguinal hernia
CT as above: possible developing incarceration/strangulation of left inguinal hernia.
- Possible OR tomorrow 06/26/25 for hernial repair.
# Chest pain likely due to GERD
# GERD
EKG 06/24/25 showed sinus bradycardia and low voltage.
- Patient had an episode of chest pressure and 'sour taste' overnight 06/23/25, which was relieved after tums, IV Protonix and IV Dilaudid 0.25 mg
- Continue Protonix 40 mg PO daily.
# Acute diastolic CHF exacerbation
Echo April 2025 showed preserved ejection fraction
EKG showed normal sinus rhythm with no acute ischemic change
Troponin 0.015, no chest pain
�Cardiology consulted.� Continue beta vicky, Aldactone, Farxiga.� Cardiology signed off 06/23/2025.
�Follow daily weights, I&Os.
-Continue sodium restricted diet.
# Right lung base opacity
CXR revealed well marginated opacity within the right lung base measuring 6.1 x 5.4 cm which may represent a pneumonia with a developing abscess.� This could also represent loculated fluid within the fissure.� Mild thickening of the right minor
fissure.� Diffusely increased interstitial opacities bilaterally.
CT chest with IV contrast: small bilateral loculated pleural effusions.
-Given history of nephrotic syndrome, this could be a pneumonia versus pleural effusion versus malignancy.
- Consider possibility of thoracentesis.
#Bradycardia
- Heart rate 54 today 06/25/25.
- Continue Carvedilol 3.125 mg PO BID.�
- Monitor heart rate.
# Hypertension
-Continue Norvasc/Aldactone/Hydralazine/Coreg
# Depression
-Continue Zoloft
DVT prophylaxis: Lovenox�
Full code
Anticipated Discharge: > 48 hours
Subjective/Interval History
-
Date of Service: June 25, 2025
Patient states he feels much better than yesterday. No episodes of chest pain/pressure overnight. Patient is aware that he is supposed to get surgery for his hernia tomorrow. No new symptoms.
Objective Data
-
Labs:
Laboratory Results
06/25/25
06:58
WBC 7.8
Hgb 13.1
Hct 41.6
Plt Count 205 D
Sodium 132 L
Potassium 5.2 H
Chloride 100
Carbon Dioxide 31 H
BUN 71 H
Creatinine 1.7 H
Glucose 93
Calcium 8.3 L
Total Bilirubin 0.5
AST 25
ALT 15
Alkaline Phosphatase 108
Vital Signs:
Vital Signs
Temp Pulse Resp BP Pulse Ox
98.2 F 54 16 134/63 97
06/25/25 08:03 06/25/25 08:40 06/25/25 08:03 06/25/25 08:40 06/25/25 08:03
I&O
06/24/25 06/25/25 06/26/25
06:59 06:59 06:59
Intake Total 480 / 480 1200 / 1200
Output Total 2275 / 2275 1250 / 1250
Balance -1795 / -1795 -50 / -50
Review of Systems
-
History Source: Patient
Constitutional: Reports No Symptoms
EENT: Reports No Symptoms Reported
Respiratory: Reports No Symptoms
Cardiac: Reports No Symptoms
Abdomen/GI: Reports No Symptoms
Breast: Reports No Symptoms
Genitourinary: Reports No Symptoms
Musculoskeletal: Reports No Symptoms
Skin: Reports No Symptoms
Neuro: Reports No Symptoms
Endocrine: Reports No Symptoms
Hematologic / Lymphatic: Reports No Symptoms
Physical Exam
-
General: Well Developed, Well Nourished, No Apparent Distress, Comfortable and Conversant
HEENT: Normocephalic, Atraumatic, Moist Mucous Membranes and Anicteric
Respiratory: Clear to Auscultation
Cardiac: Regular Rhythm and S1/S2
GI: Soft, Nontender, Nondistended, Normal Bowel Sounds and No Hepatosplenomegaly
Musculoskeletal: No Clubbing, No Cyanosis, Edema, Right Lower Extrem (With redness over shins) and Edema, Left Lower Extrem (With redness over shins)
Skin: Warm
Neuro: Awake, AO x 3 and No Motor Deficits
Psych: Calm
Data Reviewed
-
Labs: Labs Reviewed by me and Discussed with Physician
Old Records: Reviewed
--- NOTE | 2025-06-25 09:47 | CM ---
Reviewed the chart notes and spoke with the patient at the bedside. The patient anticipates going to the OR tomorrow of hernia repair. CM continues to be available to patient/family and is monitoring medical plan for needs at discharge.
Plan: Discharge plans will depend on the patient's progress.
--- NOTE | 2025-06-25 10:05 | W.PN.UPDATE ---
Addendum entered and electronically signed by Brody Martinez MD 06/25/25 13:48:
Acute hypoxemic respiratory failure
Hyponatremia
Original Note:
Update Note
Progress Note Update
I saw and evaluated the patient. I reviewed the resident�s note and agree with findings and plan as documented in the resident�s note.
No new complaints
Gen: NAD, Awake and alert
Eyes: EOMI, PERRLA, no scleral icterus.
Neck: supple.
CV: Continues to remain nora, reg rhythm, +S1/S2, no m/r/g.
Resp: Remains CTAB anteriorly, no rales, wheezes, or rhonchi.
Abd: +BS, soft, NT, ND
Skin: No rashes. 1-2+ B/L LE edema
Neuro: CN 2-12 intact, non-focal.
Psych: Normal mood and affect.
CT C/A/P: Fat-containing left inguinal hernia with mild fluid. This can be seen with developing incarceration/strangulation. Small bilateral loculated pleural effusions. This corresponds to the recent right lung radiographic finding. Possible left
renal soft tissue mass. Nonurgent dedicated CT of the kidneys pre- and post-IV contrast or MRI examination recommended. Tiny pericardial effusion versus pericardial thickening. Findings consistent with prior benign granulomatous disease. A couple
too small to characterize hypodense hepatic lesions likely small cysts or hemangiomas. Bilateral too small to characterize hypodense renal lesions likely benign cysts. A couple hyperdense subcentimeter left renal lesions likely benign proteinaceous
cysts is mild fecal material in colon.
B/L LE U/S: No sonographic evidence for lower extremity venous thrombosis.
Acute HFpEF:
-cont Lasix 80mg IV TID, daily Zaroxolyn, Amiloride
-daily wts, I/Os
-cont BB/Farxiga
-cards saw in c/s, renal managing diuretics
Nephrotic syndrome with membranous nephropathy:
-dx'd by biopsy 06/17/25, anti-PLA2R Ab NEG which may suggest a secondary variant of membranous nephropathy
-acute viral hepatitis panel (B+C) NEG
-SPEP: Restricted band of protein migration in the gamma region which is too small to quantify. BEA gel shows a faint band in IgG kappa which may be indicative of a specific immune response or an early monoclonal protein.
-[place]/Lambda 1.3
-immunoglobulins normal, cryoglobulin pending
-renal following
Other problems:
Hyperkalemia: 15g Kayexalate
Multidrug-resistant essential HTN: Cont Norvasc/Aldactone/Hydralazine/Coreg
Bradycardia: Coreg decreased
Depression: cont Zoloft
GERD: cont PPI
For L inguinal hernia repair tomorrow
FULL/Lovenox
--- NOTE | 2025-06-25 11:30 | W.PN.NEPH.PH ---
Today's Communication / Plan
-
Escalate metolazone to twice daily
Continue IV diuretics
Follow BMP
For hernia surgery
Assessment/Plan
-
Impression:
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
Decompensated congestive heart failure: Likely secondary to renal failure
History of HFpEF
Pulmonary hypertension
History of recent incarcerated left inguinal hernia repair on 02/23/2025
Anemia
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
CKD (1.6): Renal ultrasound notes bilateral renal cysts no hydronephrosis normal size kidneys)
History of hypertension
History of pulmonary hypertension
History of moderate MR
PAD with moderate to severe claudication
Plan:
Dr. Lechuga spoke with nephro pathologist from [facility] in regards to the patient's renal biopsy that he underwent on 06/17/2025. The patient's biopsy report was consistent with membranous nephropathy. The patient's anti-PLA2R antibody
however has been negative and henceforth it appears that this may be a secondary variant of membranous nephropathy. Secondary membranous nephropathy can be attributed to underlying malignancies/full workup: Dysproteinemia workup negative
hepatitis and cryoglobulin serologies.
reportedly has had a recent colonoscopy which was negative.
CT of chest abdomen and pelvis =Possible left renal soft tissue mass. Nonurgent dedicated CT of the kidneys pre- and post-IV contrast or MRI examination recommended
consider treating this as a primary variant with rituximab/or calcineurin inhibitor = unlikely to get approval from insurance/would consider [facility] consultation if pursuing Rituxan
No acute need for dialysis at this time as long as we can continue to diurese the patient
06/23 Added amiloride (ENac inhibitor) in setting of severe nephrotic syndrome with persistent third space , will escalate metolazone to twice daily
Monitor bicarb closely with aggressive diuresis
Weights to
Continue with current regimen for now
Discussed with surgery who wants to proceed with hernia repair recurrent from February. Agree to pursue this on
We will reevaluate volume status tomorrow
=====
High complexity
-
-
Date of Service: June 25, 2025
CC / HPI / ROS
-
Chief Complaint:
CKD/membranous nephropathy
History of Present Illness:
Creatinine stable at 1.7 baseline
Hemodynamically stable
on IV diuresis for volume overload
Review of Systems:
Nonoliguric
Abdominal discomfort from hernia
Remains on oxygen therapy but no reported shortness of breath or chest
Labs
-
Labs:
WBC 7.8 10^3/uL (4.8-10.8) 06/25/25 06:58
RBC 4.87 10^6/uL (4.70-6.10) 06/25/25 06:58
Hgb 13.1 g/dL (13.0-18.0) 06/25/25 06:58
Hct 41.6 % (39.0-52.0) 06/25/25 06:58
Plt Count 205 10^3/uL (130-400) D 06/25/25 06:58
Sodium 132 mmol/L (135-145) L 06/25/25 06:58
Potassium 5.2 mmol/L (3.5-5.1) H 06/25/25 06:58
Chloride 100 mmol/L (98-107) 06/25/25 06:58
Carbon Dioxide 31 mmol/L (22-30) H 06/25/25 06:58
BUN 71 mg/dl (9-20) H 06/25/25 06:58
Creatinine 1.7 mg/dL (0.7-1.3) H 06/25/25 06:58
eGFR 39.51 06/25/25 06:58
Glucose 93 mg/dl (70-99) 06/25/25 06:58
Calcium 8.3 mg/dl (8.4-10.2) L 06/25/25 06:58
Rrj-G-Bkgmhaterxi Pept 5540 pg/ml 06/20/25 11:20
Albumin 2.6 g/dl (3.5-5.0) L 06/25/25 06:58
Physical Exam
-
Vital Signs:
Vital Signs
Temp Pulse Resp BP Pulse Ox
98.2 F 54 16 134/63 97
06/25/25 08:03 06/25/25 08:40 06/25/25 08:03 06/25/25 08:40 06/25/25 10:00
Cardiovascular:: Regular rate and rhythm
Respiratory:: Bilateral: Coarse (With some fine crackles at base)
Lung Excursion:: Normal
Abdomen:: Nontender and Soft
Bowel Sounds:: Normal
Extremity Edema:: +1: Bilateral:
Rey Catheter: No
--- NOTE | 2025-06-25 12:27 | PN.CDI ---
CDI
- -
CDI:
Physician Documentation Request
Admit Date: 06/20/25 14:43
Dear Doctor Michelle/Resident ,
Please review the following and provide your response in the progress notes.
Clinical Indicators:
Pt admitted with CHFpEF exacerbation
Documented per ED , ' The patient usually does not require supplemental oxygen; however, he has been using it continuously over the past couple of days and is currently on three liters via nasal cannula.'
Documented per H&P, ' LUNGS : crackles bilaterally with mild resp distress--winded with speaking...Respiratory: Crackles (Diffusely) and Other (Increased work of breathing)...'
Progress notes 06/21& 06/22 ,' LUNGS : crackles bilaterally with mild resp distress--winded with speaking
06/20/25
14:00 06/20/25
14:03 06/20/25
18:15
Resp Rate 24 34
Nasal Cannula flow liters per minute 3
06/20/25
20:31 06/20/25
21:00 06/21/25
08:17
Resp Rate 28
Nasal Cannula flow liters per minute 3 2
06/23/25
14:00
Resp Rate 25
06/23/25
19:53 06/24/25
05:00 06/24/25
16:00
Resp Rate 27
Nasal Cannula flow liters per minute 1 2
Clarify which of the following accurately represents the patient's respiratory status:
Acute Hypoxic respiratory failure
Chronic Hypoxic respiratory failure
Hypoxia
Other ( please specify)
Additional information for Respiratory Failure:
Recognized criteria for Respiratory Failure (Source: Cristi Toro. 2018September 25.
Documentation tips: Acute Respiratory Failure, The Hospitalist.)
ABGs: (1 or more) Symptoms Please indicate type if known
1. p)2 <60 or RA SPO2 <91% on RA 1. Tachypnea, SOB, dyspnea Hypoxic
2. pCO2 >45 and pH <7.35 2. Use of accessory muscles Hypercapnic
3. pO2 decrease of pCO2 increase by 3. Pallor or cyanosis Hypoxic and Hypercapnic
10 mmHg from baseline if known 4. Anxiety or restlessness Unable to determine
4. P/F Ratio (pO2/FiO2)nless than 300 5. Unable to speak in full sentences
Use of terms such as suspected, likely, concern for, or probable (associated with a specific diagnosis that is being evaluated, monitored, or treated as if it exists) are acceptable and can be coded in the inpatient setting, when documented at the
time of discharge.
Thank you,
Brianda Campa RN
CDI Specialist
[place] [facility]
Please use your independent medical judgment in providing your response.
--- NOTE | 2025-06-25 12:50 | PN.CDI ---
CDI
- -
CDI:
Physician Documentation Request
Admit Date: 06/20/25 14:43
Dear Doctor Michelle/Resident,
Please review the following and provide your response in the progress notes.
Clinical Indicators:
Pt admitted with CHFpEF exacerbation /On IV diuresis
Sodium levels are as below
Laboratory Tests
06/24/25 06/25/25
04:30 06:58
Sodium 134 L 132 L
Based on the above, could you clarify in the progress notes, the appropriate diagnosis, if significant, that supports the above abnormalities and additional evaluation, monitoring and/or treatment rendered:
Hyponatremia
Abnormal lab value
Other ( please specify)
Use of terms such as suspected, likely, concern for, or probable (associated with a specific diagnosis that is being evaluated, monitored, or treated as if it exists) are acceptable and can be coded in the inpatient setting, when documented at the
time of discharge.
Thank you,
Brianda Campa RN
CDI Specialist
[place] [facility]
Please use your independent medical judgment in providing your response.
[2025-06-25] MEDS: LOVENOX 40 MG SC (16:43)
--- NOTE | 2025-06-25 16:47 | CON.GS ---
Consultation
-
Date/Time Consultation Performed: 06/25/2025 7:10 AM
Performing Provider: Darinel Herrera
Reason for Consultation: Recurrent left inguinal hernia
Medical History
-
Chief Complaint: Recurrent left inguinal hernia
History of Present Illness:
Patient is an 85-year-old male who was admitted to the hospitalist service on 06/20/2025 secondary to worsening lower extremity edema and shortness of breath.
Mr. Lizama is known to our surgical service for a history of a left inguinal hernia which was managed acutely due to incarceration this past February [address] Jignesh Bond undergoing open repair with mesh.
Patient and his family report that his initial postoperative recovery was generally unremarkable. He has recently taken note of a recurrent swelling and discomfort in the left inguinal region. It is not his primary reason for admission as listed
above but there is discomfort in the region and intermittent abdominal pains.
Since admission the patient has undergone aggressive diuresis to which he has responded well. After discussions with the patient's treating medical service and nephrology service as well as family we have elected to offer operative correction of
his inguinal hernia while he has been medically optimized and his fluid balance is controlled.
Past Medical History
Past Medical History: Other (Membranous nephropathy with nephrotic range proteinuria/hypoalbuminemia, decompensated congestive heart failure, pulmonary hypertension, anemia, COPD/ILD, CKD, hypertension, pulmonary hypertension, moderate MR, PAD with
claudication)
Past Surgical History: Other (Open repair left inguinal hernia)
Social History
Alcohol: Occasional
Drug: None
Personal:
Living: With Family
Family History
Family History: Reviewed & Not Pertinent
Allergies / Home Medications
Allergy/AdvReac Type Severity Reaction Status Date / Time
No Known Allergies Allergy Verified 06/20/25 10:35
�Medication �Instructions �Recorded �Confirmed �Type
amlodipine 5 mg tablet (Norvasc) 5 mg PO DAILY Blood Pressure 10/31/24 06/20/25 History
carboxymethylcellulose 0.5 1 drp BOTH EYES TID Eye Condition 10/31/24 06/20/25 History
%-glycerin 0.9 % eye drops
(Refresh Optive)
cilostazol 100 mg tablet 100 mg PO BID Blood Clot 10/31/24 06/20/25 History
Prevention/Tx
fluticasone fur. 100 mcg-umeclid 1 inh inhalation R DAILY 10/31/24 06/20/25 History
62.5 mcg-vilant 25 mcg Lung/Breathing Issues
inhalat.powder (Trelegy Ellipta)
omeprazole 20 mg tablet,delayed 20 mg PO DAILY Gastrointestinal 10/31/24 06/20/25 History
release Issue
sertraline 25 mg tablet 25 mg PO HS Depression 10/31/24 06/20/25 History
bumetanide 2 mg tablet 2 mg PO BID@0800,1600 #60 tabs 11/27/24 06/20/25 Rx
carvedilol 12.5 mg tablet 12.5 mg PO BID #60 tabs 11/27/24 06/20/25 Rx
dapagliflozin propanediol 10 mg 10 mg PO DAILY #30 tabs 11/27/24 06/20/25 Rx
tablet
aspirin 81 mg tablet 81 mg PO DAILY 06/16/25 06/20/25 History
spironolactone 25 mg tablet 12.5 mg PO Q48H 06/17/25 06/20/25 History
hydralazine 25 mg tablet 37.5 mg PO BID 06/20/25 06/20/25 History
Review of Systems
-
History Source: Patient and Family
All other systems: Negative unless noted
A 10 point review of systems was completed, and was negative except as per HPI.
Physical Exam
Vital Signs
Temp Pulse Resp BP Pulse Ox
97.5 F 53 16 160/70 98
06/25/25 15:31 06/25/25 16:43 06/25/25 15:31 06/25/25 16:43 06/25/25 15:31
06/24/25 06/25/25 06/26/25
06:59 06:59 06:59
Actual Weight 77.1 kg 76.34 kg
Body Mass Index (BMI) 24.9
Lab Results
06/25/25 06:58
06/25/25 06:58
WBC 7.8 10^3/uL (4.8-10.8) 06/25/25 06:58
Hgb 13.1 g/dL (13.0-18.0) 06/25/25 06:58
Hct 41.6 % (39.0-52.0) 06/25/25 06:58
Plt Count 205 10^3/uL (130-400) D 06/25/25 06:58
Abs Immat Gran (auto) 0.0 10^3/uL (0-0.05) 06/25/25 06:58
Neutrophils % 54.9 % (42.2-75.2) 06/25/25 06:58
Physical Exam
General: Well Developed, Well Nourished, No Apparent Distress, Comfortable and Other (Elderly male)
HEENT: Normocephalic, Anicteric and Moist Mucous Membranes
Respiratory: Non Labored Respirations
Cardiac: Regular Rhythm
GI: Soft, Non Distended and Tender (Slight tenderness on palpation and reduction of left inguinal hernia)
Genito-urinary: Inguinal Hernia
Neuro: AO x 3
Psych: Calm
Data Reviewed
-
CT Scan: Image Personally Visualized and interpreted
Assessment / Plan
-
Assessment/Plan: 85-year-old male with recurrent left inguinal hernia. Reviewing CT abdomen/pelvis imaging this appears to be a left indirect inguinal hernia containing sigmoid colon. The hernia is reducible but he is having some discomfort in the
region.
Reviewed with patient and his family members options for management which would include both expectant management versus operative correction. Since his previous repair was an open approach we discussed a minimally invasive/robotic assisted
laparoscopic preperitoneal repair to avoid potential scar tissue and facilitate repair of the hernia recurrence.
Discussed with hospitalist and nephrology services. In the setting of the challenges managing the patient's volume status it would be advantageous to proceed with operative correction while we know he is actively being medically optimized rather
than an unknown fluid/volume status leading into an outpatient/scheduled operative procedure.
He has been cleared to proceed with surgery with close monitoring understanding the increased medical/surgical risk due to the patient's comorbidities. Any of the patient's or his family members concerns or questions were fully addressed after
discussing the anticipated operative approach/surgery, alternative treatment options, benefits and potential risks of the procedure both surgical related risks and medical postoperative morbidities.
Patient is added onto the OR schedule for , 06/26/2025
[2025-06-25] MEDS: ZOLOFT 25 MG PO (22:57)
[2025-06-26] VITALS (15 sets, daily range): BP systolic 130–167; BP diastolic 56–77; BMI 24.1
[2025-06-26 07:26] LABS: Hematocrit 38.1 % (39.0-52.0); Hemoglobin 12.2 g/dL (13.0-18.0); Mean Corp Hgb Conc. 32.0 g/dL (33.0-37.0); Mean Corpuscular Volume 85.2 fL (80.0-94.0); Nucleated Red Blood Cells % 0 % (-); Platelet Count 167 10^3/uL (130-400); Red Cell Dist. Width 14.9 % (11.5-14.5)
[2025-06-26] MEDS: SYMBICORT 80/4.5 MCG INHALER 2 PUFF INH ×2 (07:43→19:47)
[2025-06-26] MEDS: SPIRIVA RESPIMAT 2.5 MCG 2 PUFF INH (07:43)
[2025-06-26 08:18] LABS: ALT (SGPT) 17 U/L (0-50); AST (SGOT) 26 U/L (17-59); Albumin 2.3 g/dl (3.5-5.0); Alkaline Phosphatase 101 U/L (38-126); Blood Urea Nitrogen 72 mg/dl (9-20); Calcium 8.3 mg/dl (8.4-10.2); Carbon Dioxide 31 mmol/L (22-30); Chloride 100 mmol/L (98-107); Estimated Creatinine Clearance 31 ml/min; Glucose 86 mg/dl (70-99); Magnesium 2.3 mg/dl (1.6-2.3); Potassium 4.8 mmol/L (3.5-5.1); Sodium 134 mmol/L (135-145); Total Protein 5.4 g/dl (6.3-8.2); eGFR 36.89
--- NOTE | 2025-06-26 08:26 | W.PN.UPDATE ---
Update Note
Progress Note Update
I saw and evaluated the patient. I reviewed the resident�s note and agree with findings and plan as documented in the resident�s note.
Denies CP/SOB.
Gen: NAD, Awake and alert
Eyes: EOMI, PERRLA, no scleral icterus.
Neck: supple.
CV: García, reg rhythm, +S1/S2, no m/r/g.
Resp: continues to remain CTAB anteriorly, no rales, wheezes, or rhonchi.
Abd: +BS, soft, NT, ND
Skin: No rashes. 1+ B/L LE edema
Neuro: CN 2-12 intact, non-focal.
Psych: Normal mood and affect.
CT C/A/P: Fat-containing left inguinal hernia with mild fluid. This can be seen with developing incarceration/strangulation. Small bilateral loculated pleural effusions. This corresponds to the recent right lung radiographic finding. Possible left
renal soft tissue mass. Nonurgent dedicated CT of the kidneys pre- and post-IV contrast or MRI examination recommended. Tiny pericardial effusion versus pericardial thickening. Findings consistent with prior benign granulomatous disease. A couple
too small to characterize hypodense hepatic lesions likely small cysts or hemangiomas. Bilateral too small to characterize hypodense renal lesions likely benign cysts. A couple hyperdense subcentimeter left renal lesions likely benign proteinaceous
cysts is mild fecal material in colon.
B/L LE U/S: No sonographic evidence for lower extremity venous thrombosis.
Acute hypoxemic respiratory failure due to acute HFpEF:
-cont Lasix 80mg IV TID, daily Zaroxolyn, Amiloride
-daily wts, I/Os
-cont BB/Farxiga
-cards saw in c/s, renal managing diuretics
Nephrotic syndrome with membranous nephropathy:
-dx'd by biopsy 06/17/25, anti-PLA2R Ab NEG which may suggest a secondary variant of membranous nephropathy
-acute viral hepatitis panel (B+C) NEG
-SPEP: Restricted band of protein migration in the gamma region which is too small to quantify. BEA gel shows a faint band in IgG kappa which may be indicative of a specific immune response or an early monoclonal protein.
-Albright/Lambda 1.3
-immunoglobulins normal, cryoglobulin pending
-renal following
L inguinal hernia:
-for L inguinal hernia repair today
Other problems:
Hyponatremia
Hyperkalemia, resolved
Multidrug-resistant essential HTN: Cont Norvasc/Aldactone/Hydralazine/Coreg
Bradycardia: Coreg decreased
Depression: cont Zoloft
GERD: cont PPI
FULL/Lovenox
--- NOTE | 2025-06-26 08:30 | W.PN.HOSP.TC ---
Today's Communication/Plan
-
OR today AM for hernial repair.
Renal following and managing diuretics
Assessment / Plan
Assessment / Plan
A 85-year-old male with a past medical history of CHF, nephrotic syndrome, CKD, hypertension and COPD who presented with progressive shortness of breath and leg swelling.� Patient got a kidney biopsy done 2 days ago at [place], and has had
progressive leg swelling with shortness of breath, orthopnea and abdominal distention.� Per , normally his weight is 166 lbs, but it was 177 lbs this morning. Renal biopsy from 06/17/2025 revealed membranous nephropathy.
CT abdomen/pelvis: Fat-containing left inguinal hernia with mild fluid. This can be seen with developing incarceration/strangulation. Small bilateral loculated pleural effusions. This corresponds to the recent right lung radiographic finding.
Possible left renal soft tissue mass. Nonurgent dedicated CT of the kidneys pre- and post-IV contrast or MRI examination recommended. Tiny pericardial effusion versus pericardial thickening. Findings consistent with prior benign granulomatous
disease. A couple too small to characterize hypodense hepatic lesions likely small cysts or hemangiomas. Bilateral too small to characterize hypodense renal lesions likely benign cysts. A couple hyperdense subcentimeter left renal lesions likely
benign proteinaceous cysts is mild fecal material in colon.
Bilateral lower extremity ultrasound: No sonographic evidence for lower extremity venous thrombosis.
Assessment/Plan:
# Nephrotic syndrome with membranous nephropathy
Renal biopsy from 06/17/2025 revealed membranous nephropathy with anti�PLA2R antibody negative, which may suggest a secondary variant of membranous nephropathy.� Secondary variant of membranous nephropathy can be attributed to underlying malignancies.
CT abdomen/pelvis as above.
�Nephrology consulted and following. Hold bumetanide. Continuing IV Lasix 80 Mg TID. Escalate metolazone to twice daily, and continue amiloride.
�Spironolactone discontinued 06/23/25.
�Responding well to diuresis, no need for acute dialysis.
�Creatinine 06/25/2025 1.7, which is near his baseline. Trend BMP.
�Acute viral hepatitis panel (B/C)- NEGATIVE.
�Ruth lambda ratio 1.3, immunoglobulins normal, cryoglobulin pending
� Bilateral duplex venous ultrasound ordered due to risk of hypercoagulability from nephrotic syndrome- NEGATIVE
�PSA negative, low prostate cancer probability�
# Hyperkalemia
# Hyponatremia
- K 5.2 on 06/25/25, Ordered Kayexalate 15 mg. 4.8 today 06/26/2025.
- Na 132 on 06/25/25, improved to 134 today.
- Will trend BMP
# Left inguinal hernia
CT as above: possible developing incarceration/strangulation of left inguinal hernia.
- OR today 06/26/25 for hernial repair. Surgery following.
# Chest pain likely due to GERD
# GERD
EKG 06/24/25 showed sinus bradycardia and low voltage.
- Patient had an episode of chest pressure and 'sour taste' overnight 06/23/25, which was relieved after tums, IV Protonix and IV Dilaudid 0.25 mg
- Continue Protonix 40 mg PO daily.
# Acute diastolic CHF exacerbation
Echo April 2025 showed preserved ejection fraction
EKG showed normal sinus rhythm with no acute ischemic change
Troponin 0.015, no chest pain
�Cardiology consulted.� Continue beta vicky, Aldactone, Farxiga.� Cardiology signed off 06/23/2025.
�Follow daily weights, I&Os.
-Continue sodium restricted diet.
# Right lung base opacity
CXR revealed well marginated opacity within the right lung base measuring 6.1 x 5.4 cm which may represent a pneumonia with a developing abscess.� This could also represent loculated fluid within the fissure.� Mild thickening of the right minor
fissure.� Diffusely increased interstitial opacities bilaterally.
CT chest with IV contrast: small bilateral loculated pleural effusions.
-Given history of nephrotic syndrome, this could be a pneumonia versus pleural effusion versus malignancy.
- Consider possibility of thoracentesis.
#Bradycardia
- Heart rate 54 today 06/25/25.
- Continue Carvedilol 3.125 mg PO BID.�
- Monitor heart rate.
# Hypertension
-Continue Norvasc/Aldactone/Hydralazine/Coreg
# Depression
-Continue Zoloft
DVT prophylaxis: Lovenox�
Full code
Anticipated Discharge: 24 - 48 hours
Subjective/Interval History
-
Date of Service: June 26, 2025
Patient states he feels well. He denies shortness of breath, chest pain or any other symptoms. He states he is ready to go for surgery this morning around 9 AM.
Objective Data
-
Labs:
Laboratory Results
06/26/25
06:49
WBC 6.3
Hgb 12.2 L
Hct 38.1 L
Plt Count 167
Sodium 134 L
Potassium 4.8
Chloride 100
Carbon Dioxide 31 H
BUN 72 H
Creatinine 1.8 H
Glucose 86
Calcium 8.3 L
Total Bilirubin 0.5
AST 26
ALT 17
Alkaline Phosphatase 101
Vital Signs:
Vital Signs
Temp Pulse Resp BP Pulse Ox
97.8 F 56 18 147/77 95
06/26/25 07:45 06/26/25 07:50 06/26/25 07:50 06/26/25 07:45 06/26/25 07:50
I&O
06/25/25 06/26/25 06/27/25
06:59 06:59 06:59
Intake Total 1200 / 1200 900 / 900
Output Total 1250 / 1250 2150 / 2150
Balance -50 / -50 -1250 / -1250
Review of Systems
-
History Source: Patient
Constitutional: Reports No Symptoms
EENT: Reports No Symptoms Reported
Respiratory: Reports No Symptoms
Cardiac: Reports No Symptoms
Abdomen/GI: Reports No Symptoms
Breast: Reports No Symptoms
Genitourinary: Reports No Symptoms
Musculoskeletal: Reports No Symptoms
Skin: Reports No Symptoms
Neuro: Reports No Symptoms
Physical Exam
-
General: Well Developed, Well Nourished, No Apparent Distress, Comfortable and Conversant
HEENT: Normocephalic, Atraumatic, Moist Mucous Membranes and Anicteric
Respiratory: Clear to Auscultation
Cardiac: Regular Rhythm and S1/S2
GI: Soft, Nontender, Nondistended, Normal Bowel Sounds and No Hepatosplenomegaly
Musculoskeletal: Edema, Right Lower Extrem (1+) and Edema, Left Lower Extrem (1+)
Neuro: Awake, AO x 3 and Nonfocal/Grossly Intact
Psych: Calm
Data Reviewed
-
Labs: Labs Reviewed by me and Discussed with Physician
Old Records: Reviewed
[2025-06-26] MEDS: LASIX 80 MG IV ×3 (09:04→22:30)
--- NOTE | 2025-06-26 09:51 | W.PN.NEPH.PH ---
Today's Communication / Plan
-
Maintain IV diuresis
For hernia repair today
Follow BMP
Assessment/Plan
-
Impression:
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
Decompensated congestive heart failure: Likely secondary to renal failure
History of HFpEF
Pulmonary hypertension
History of recent incarcerated left inguinal hernia repair on 02/23/2025
Anemia
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
CKD (1.6): Renal ultrasound notes bilateral renal cysts no hydronephrosis normal size kidneys)
History of hypertension
History of pulmonary hypertension
History of moderate MR
PAD with moderate to severe claudication
Plan:
Dr. Lechuga spoke with nephro pathologist from [facility] in regards to the patient's renal biopsy that he underwent on 06/17/2025. The patient's biopsy report was consistent with membranous nephropathy. The patient's anti-PLA2R antibody
however has been negative and henceforth it appears that this may be a secondary variant of membranous nephropathy. Secondary membranous nephropathy can be attributed to underlying malignancies/full workup: Dysproteinemia workup negative
hepatitis and cryoglobulin serologies.
reportedly has had a recent colonoscopy which was negative.
CT of chest abdomen and pelvis =Possible left renal soft tissue mass. Nonurgent dedicated CT of the kidneys pre- and post-IV contrast or MRI examination recommended
consider treating this as a primary variant with rituximab/or calcineurin inhibitor = unlikely to get approval from insurance/would consider [facility] consultation if pursuing Rituxan
No acute need for dialysis at this time as long as we can continue to diurese the patient
06/23 Added amiloride (ENac inhibitor) in setting of severe nephrotic syndrome with persistent third space , will escalate metolazone to twice daily
Monitor bicarb closely with aggressive diuresis
Weights down
Continue with current regimen for now with lasix TID and metolazone 2.5mg BID
If creatinine nudging up to 1.8 today but grossly nonoliguric, with urine output greater than 2 L
For hernia repair today
=====
High complexity due to ongoing need for aggressive IV diuresis with worsening kidney function
-
-
Date of Service: June 26, 2025
CC / HPI / ROS
-
Chief Complaint:
CKD/membranous nephropathy
History of Present Illness:
Creatinine worsening at 1.8 baseline
Hemodynamically stable
on IV diuresis for volume overload
Review of Systems:
Nonoliguric
Weights down
Abdominal discomfort from hernia
Remains on oxygen therapy but no reported shortness of breath or chest
Labs
-
Labs:
WBC 6.3 10^3/uL (4.8-10.8) 06/26/25 06:49
RBC 4.47 10^6/uL (4.70-6.10) L 06/26/25 06:49
Hgb 12.2 g/dL (13.0-18.0) L 06/26/25 06:49
Hct 38.1 % (39.0-52.0) L 06/26/25 06:49
Plt Count 167 10^3/uL (130-400) 06/26/25 06:49
Sodium 134 mmol/L (135-145) L 06/26/25 06:49
Potassium 4.8 mmol/L (3.5-5.1) 06/26/25 06:49
Chloride 100 mmol/L (98-107) 06/26/25 06:49
Carbon Dioxide 31 mmol/L (22-30) H 06/26/25 06:49
BUN 72 mg/dl (9-20) H 06/26/25 06:49
Creatinine 1.8 mg/dL (0.7-1.3) H 06/26/25 06:49
eGFR 36.89 06/26/25 06:49
Glucose 86 mg/dl (70-99) 06/26/25 06:49
Calcium 8.3 mg/dl (8.4-10.2) L 06/26/25 06:49
Jku-[id number] Pept 5540 pg/ml 06/20/25 11:20
Albumin 2.3 g/dl (3.5-5.0) L 06/26/25 06:49
Physical Exam
-
Vital Signs:
Vital Signs
Temp Pulse Resp BP Pulse Ox
97.8 F 56 18 147/77 95
06/26/25 07:45 06/26/25 07:50 06/26/25 07:50 06/26/25 07:45 06/26/25 07:50
Cardiovascular:: Regular rate and rhythm
Respiratory:: Bilateral: Coarse (With some fine crackles at base)
Lung Excursion:: Normal
Abdomen:: Nontender and Soft
Bowel Sounds:: Normal
Extremity Edema:: +1: Bilateral:
Rey Catheter: No
--- NOTE | 2025-06-26 12:41 | W.IMMPOSTOP ---
Addendum entered and electronically signed by Darinel Herrera MD 06/27/25 16:10:
#[id number]
Original Note:
Surgical Immed Post Op Note
-
Primary Surgeon: Darinel Herrera MD
Assisting Surgeon: None
Pre-op Diagnosis: Recurrent left inguinal hernia
Post-op Diagnosis: Recurrent left inguinal hernia, indirect
Left spigelian hernia
Procedure Performed: Robotic assisted laparoscopic YAYA repair left inguinal and spigelian hernia with mesh; 3D max extra-large mid weight
Anesthesia Type: GETA +0.25% Marcaine with epi
Specimen / Cultures: None
Estimated Blood Loss: 12 mL
Complications: None immediate
Operative Findings: Recurrent left indirect inguinal hernia. Significant preperitoneal scarring around indirect and direct space. Preperitoneal flap able to be developed and maintained. 3D max extra-large mid weight mesh. Left spigelian hernia
containing preperitoneal fat which was reduced. Fascial defect was closed with 2 [id number] 2-0 Vicryl stitches. 3D max extra-large mesh covered spigelian location as well.
Incidental finding of significant bladder distention suggestive of retention. Rey catheter placed intraoperatively and left in for initial postoperative recovery.
[2025-06-26] MEDS: APRESOLINE PO (14:11)
[2025-06-26] MEDS: FARXIGA 10 MG PO (14:12)
[2025-06-26] MEDS: COREG PO (14:12)
[2025-06-26] MEDS: ASPIR LOW (ENTERIC COATED) 81 MG PO (14:12)
[2025-06-26] MEDS: MIDAMOR 10 MG PO (14:13)
[2025-06-26] MEDS: NORVASC 5 MG PO (14:13)
[2025-06-26] MEDS: ZAROXOLYN PO (14:13)
[2025-06-26] MEDS: PROTONIX PO (14:13)
[2025-06-26] MEDS: DILAUDID 0.25 MG IV (14:14)
[2025-06-26] MEDS: LOVENOX 40 MG SC (17:33)
[2025-06-26] MEDS: APRESOLINE 37.5 MG PO (20:22)
[2025-06-26] MEDS: ZAROXOLYN 2.5 MG PO (20:22)
[2025-06-26] MEDS: COREG 3.125 MG PO (20:24)
[2025-06-26] MEDS: ZOLOFT 25 MG PO (20:25)
[2025-06-27 03:34] VITALS: BP 137/63
[2025-06-27 07:27] LABS: Hematocrit 38.0 % (39.0-52.0); Hemoglobin 12.1 g/dL (13.0-18.0); Mean Corp Hgb Conc. 31.8 g/dL (33.0-37.0); Mean Corpuscular Volume 85.4 fL (80.0-94.0); Nucleated Red Blood Cells % 0 % (-); Platelet Count 198 10^3/uL (130-400); Red Cell Dist. Width 14.8 % (11.5-14.5)
[2025-06-27] MEDS: SPIRIVA RESPIMAT 2.5 MCG 2 PUFF INH (07:38)
[2025-06-27] MEDS: SYMBICORT 80/4.5 MCG INHALER 2 PUFF INH ×2 (07:38→19:55)
--- NOTE | 2025-06-27 07:45 | W.PN.HOSP.TC ---
Today's Communication/Plan
-
Nephrology following�continue diuresis
Trend labs
Assessment / Plan
Assessment / Plan
A 85-year-old male with a past medical history of CHF, nephrotic syndrome, CKD, hypertension and COPD who presented with progressive shortness of breath and leg swelling.� Patient got a kidney biopsy done 2 days ago at [place], and has had
progressive leg swelling with shortness of breath, orthopnea and abdominal distention.� Per , normally his weight is 166 lbs, but it was 177 lbs this morning. Renal biopsy from 06/17/2025 revealed membranous nephropathy.
CT abdomen/pelvis: Fat-containing left inguinal hernia with mild fluid. This can be seen with developing incarceration/strangulation. Small bilateral loculated pleural effusions. This corresponds to the recent right lung radiographic finding.
Possible left renal soft tissue mass. Nonurgent dedicated CT of the kidneys pre- and post-IV contrast or MRI examination recommended. Tiny pericardial effusion versus pericardial thickening. Findings consistent with prior benign granulomatous
disease. A couple too small to characterize hypodense hepatic lesions likely small cysts or hemangiomas. Bilateral too small to characterize hypodense renal lesions likely benign cysts. A couple hyperdense subcentimeter left renal lesions likely
benign proteinaceous cysts is mild fecal material in colon.
Bilateral lower extremity ultrasound: No sonographic evidence for lower extremity venous thrombosis.
Assessment/Plan:
# Nephrotic syndrome with membranous nephropathy
Renal biopsy from 06/17/2025 revealed membranous nephropathy with anti�PLA2R antibody negative, which may suggest a secondary variant of membranous nephropathy.� Secondary variant of membranous nephropathy can be attributed to underlying malignancies.
CT abdomen/pelvis as above.
�Nephrology consulted and following. Hold bumetanide. Continuing IV Lasix 80 Mg TID. Escalate metolazone to twice daily, and continue amiloride.
�Spironolactone discontinued 06/23/25.
�Responding well to diuresis, no need for acute dialysis.
�Creatinine 06/25/2025 1.7, which is near his baseline. Trend BMP.
�Acute viral hepatitis panel (B/C)- NEGATIVE.
�[place] lambda ratio 1.3, immunoglobulins normal, cryoglobulin pending
� Bilateral duplex venous ultrasound ordered due to risk of hypercoagulability from nephrotic syndrome- NEGATIVE
�PSA negative, low prostate cancer probability�
# Hyperkalemia
# Hyponatremia
- K 5.2 on 06/25/25, Ordered Kayexalate 15 mg. Improved to 4/8 on 06/27/25, increased to 5.2 today 06/27/25. Will give another Kayexalate 15 mg.
- Na 133 on 06/25/25, 134 on 06/26/25, 133 today 06/27/25.
- Will trend BMP
# Left inguinal hernia
# Leukocytosis
CT as above: possible developing incarceration/strangulation of left inguinal hernia.
�Laparoscopic robotic assisted transabdominal preperitoneal repair left inguinal and spigelian hernia with mesh; 3D max extra-large mid weight on 06/26/25 for hernial repair. Surgery following.
�WBC count 11.6 06/27/2025. Patient is afebrile and states he feels well. Will continue to trend CBC.
# Chest pain likely due to GERD
# GERD
EKG 06/24/25 showed sinus bradycardia and low voltage.
- Patient had an episode of chest pressure and 'sour taste' overnight 06/23/25, which was relieved after tums, IV Protonix and IV Dilaudid 0.25 mg
- Continue Protonix 40 mg PO daily.
# Acute diastolic CHF exacerbation
Echo April 2025 showed preserved ejection fraction
EKG showed normal sinus rhythm with no acute ischemic change
Troponin 0.015, no chest pain
�Cardiology consulted.� Continue beta vicky, Aldactone, Farxiga.� Cardiology signed off 06/23/2025.
�Follow daily weights, I&Os.
-Continue sodium restricted diet.
# Right lung base opacity
CXR revealed well marginated opacity within the right lung base measuring 6.1 x 5.4 cm which may represent a pneumonia with a developing abscess.� This could also represent loculated fluid within the fissure.� Mild thickening of the right minor
fissure.� Diffusely increased interstitial opacities bilaterally.
- CT chest with IV contrast: small bilateral loculated pleural effusions.
#Bradycardia
- Heart rate 54 today 06/25/25. Carvedilol dose decreased from 6.25 mg to 3.125 PO BID.
- Continue Carvedilol 3.125 mg PO BID.�
- Monitor heart rate.
# Hypertension
-Continue Norvasc/Aldactone/Hydralazine/Coreg
# Depression
-Continue Zoloft
DVT prophylaxis: Lovenox�
Full code
Anticipated Discharge: > 48 hours
Subjective/Interval History
-
Date of Service: June 27, 2025
Upon evaluation of patient today, patient states he feels well. He states he feels a slight pressure at the site of surgery but denies any pain or drainage from the area. No new symptoms.
Objective Data
-
Labs:
Laboratory Results
06/27/25
06:43
WBC 11.6 H
Hgb 12.1 L
Hct 38.0 L
Plt Count 198
Sodium 133 L
Potassium 5.2 H
Chloride 97 L
Carbon Dioxide 33 H
BUN 80 H
Creatinine 2.2 H
Glucose 100 H
Calcium 8.2 L
Total Bilirubin 0.3
AST 30
ALT 16
Alkaline Phosphatase 104
Vital Signs:
Vital Signs
Temp Pulse Resp BP Pulse Ox
97.9 F 60 16 148/65 96
06/27/25 07:47 06/27/25 08:15 06/27/25 07:47 06/27/25 08:15 06/27/25 07:47
I&O
06/26/25 06/27/25 06/28/25
06:59 06:59 06:59
Intake Total 900 / 900 910 / 910
Output Total 2149 / 2149 1950 / 1950
Balance -1250 / -1250 -1040 / -1040
Physical Exam
-
General: Well Developed, Well Nourished, No Apparent Distress and Conversant
HEENT: Normocephalic, Atraumatic, Moist Mucous Membranes and Anicteric
Respiratory: Clear to Auscultation
Cardiac: Regular Rhythm and S1/S2
GI: Soft, Nontender, Nondistended, Normal Bowel Sounds and Other (Laparoscopic incisions over abdomen, clean dry and intact)
Musculoskeletal: No Clubbing, No Cyanosis and No Edema
Skin: Warm
Neuro: Awake, AO x 3 and Nonfocal/Grossly Intact
Psych: Calm
Data Reviewed
-
Labs: Labs Reviewed by me and Discussed with Physician
Old Records: Reviewed
[2025-06-27 07:47] VITALS: BP 148/65
--- NOTE | 2025-06-27 07:49 | W.PN.UPDATE ---
Update Note
Progress Note Update
I saw and evaluated the patient. I reviewed the resident�s note and agree with findings and plan as documented in the resident�s note.
Denies CP/SOB.
Gen: NAD, Awake and alert
Eyes: EOMI, PERRLA, no scleral icterus.
Neck: supple.
CV: RRR, +S1/S2, no m/r/g.
Resp: CTAB anteriorly, no rales, wheezes, or rhonchi.
Abd: +BS, soft, NT to light palpation, ND
Skin: No rashes. no LE edema (SCDs in place and active)
Neuro: CN 2-12 intact, non-focal.
Psych: Normal mood and affect.
CT C/A/P: Fat-containing left inguinal hernia with mild fluid. This can be seen with developing incarceration/strangulation. Small bilateral loculated pleural effusions. This corresponds to the recent right lung radiographic finding. Possible left
renal soft tissue mass. Nonurgent dedicated CT of the kidneys pre- and post-IV contrast or MRI examination recommended. Tiny pericardial effusion versus pericardial thickening. Findings consistent with prior benign granulomatous disease. A couple
too small to characterize hypodense hepatic lesions likely small cysts or hemangiomas. Bilateral too small to characterize hypodense renal lesions likely benign cysts. A couple hyperdense subcentimeter left renal lesions likely benign proteinaceous
cysts is mild fecal material in colon.
B/L LE U/S: No sonographic evidence for lower extremity venous thrombosis.
Acute hypoxemic respiratory failure due to acute HFpEF:
-s/p IV Lasix and Zaroxolyn, now stopped with Cr bump (ROLANDA)
-cont Amiloride
-daily wts, I/Os
-cont BB/Farxiga
-cards saw in c/s, renal managing diuretics
Nephrotic syndrome with membranous nephropathy:
-dx'd by biopsy 06/17/25, anti-PLA2R Ab NEG which may suggest a secondary variant of membranous nephropathy
-acute viral hepatitis panel (B+C) NEG
-SPEP: Restricted band of protein migration in the gamma region which is too small to quantify. BEA gel shows a faint band in IgG kappa which may be indicative of a specific immune response or an early monoclonal protein.
-[place]/Lambda 1.3
-immunoglobulins normal, cryoglobulin pending
-renal following
Other problems:
L inguinal hernia: s/p Robotic assisted laparoscopic YAYA repair left inguinal and spigelian hernia with mesh; 3D max extra-large mid weight 06/26/25
Hyponatremia
Hyperkalemia, 15g Kayexalate
Multidrug-resistant essential HTN: Cont Norvasc/Aldactone/Hydralazine/Coreg
Bradycardia: Coreg decreased
Depression: cont Zoloft
GERD: cont PPI
FULL/Lovenox
[2025-06-27 07:58] LABS: ALT (SGPT) 16 U/L (0-50); AST (SGOT) 30 U/L (17-59); Albumin 2.6 g/dl (3.5-5.0); Alkaline Phosphatase 104 U/L (38-126); Blood Urea Nitrogen 80 mg/dl (9-20); Calcium 8.2 mg/dl (8.4-10.2); Carbon Dioxide 33 mmol/L (22-30); Chloride 97 mmol/L (98-107); Estimated Creatinine Clearance 25 ml/min; Glucose 100 mg/dl (70-99); Magnesium 2.5 mg/dl (1.6-2.3); Potassium 5.2 mmol/L (3.5-5.1); Sodium 133 mmol/L (135-145); Total Protein 5.8 g/dl (6.3-8.2); eGFR 28.99
[2025-06-27] MEDS: APRESOLINE 37.5 MG PO ×2 (08:12→20:03)
[2025-06-27] MEDS: ASPIR LOW (ENTERIC COATED) 81 MG PO (08:13)
[2025-06-27] MEDS: ZAROXOLYN 2.5 MG PO (08:14)
[2025-06-27] MEDS: FARXIGA 10 MG PO (08:14)
[2025-06-27] MEDS: COREG 3.125 MG PO ×2 (08:14→20:02)
[2025-06-27] MEDS: NORVASC 5 MG PO (08:15)
[2025-06-27] MEDS: LASIX 80 MG IV (08:15)
[2025-06-27] MEDS: PROTONIX 40 MG PO (08:15)
[2025-06-27] MEDS: MIDAMOR 10 MG PO (08:15)
[2025-06-27] MEDS: KAYEXALATE SUSPENSION 15 GRAMS PO (09:20)
[2025-06-27 09:32] VITALS: BMI 23.9
[2025-06-27 11:32] VITALS: BP 156/70
--- NOTE | 2025-06-27 12:05 | W.PN.NEPH.PH ---
Today's Communication / Plan
-
Hold diuretic
Assessment/Plan
-
Impression:
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
Decompensated congestive heart failure: Likely secondary to renal failure
History of HFpEF
Pulmonary hypertension
History of recent incarcerated left inguinal hernia repair on 02/23/2025
Anemia
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
CKD (1.6): Renal ultrasound notes bilateral renal cysts no hydronephrosis normal size kidneys)
History of hypertension
History of pulmonary hypertension
History of moderate MR
PAD with moderate to severe claudication
Plan:
Dr. Lechuga spoke with nephro pathologist from [facility] in regards to the patient's renal biopsy that he underwent on 06/17/2025. The patient's biopsy report was consistent with membranous nephropathy. The patient's anti-PLA2R antibody
however has been negative and henceforth it appears that this may be a secondary variant of membranous nephropathy. Secondary membranous nephropathy can be attributed to underlying malignancies/full workup: Dysproteinemia workup negative
hepatitis and cryoglobulin serologies.
reportedly has had a recent colonoscopy which was negative.
CT of chest abdomen and pelvis =Possible left renal soft tissue mass. Nonurgent dedicated CT of the kidneys pre- and post-IV contrast or MRI examination recommended
consider treating this as a primary variant with rituximab/or calcineurin inhibitor = unlikely to get approval from insurance/would consider [facility] consultation if pursuing Rituxan
06/23 Added amiloride (ENac inhibitor) in setting of severe nephrotic syndrome with persistent third space
Monitor bicarb closely with aggressive diuresis
Weights down
Creatinine elevated today
We will hold diuretics and reevaluate tomorrow
=====
High complexity due to ongoing need for aggressive IV diuresis with worsening kidney function
-
-
Date of Service: June 27, 2025
CC / HPI / ROS
-
Chief Complaint:
CKD/membranous nephropathy
History of Present Illness:
Creatinine worsening at 1.8 baseline
Hemodynamically stable
on IV diuresis for volume overload
Review of Systems:
Nonoliguric
Weights down
Remains on oxygen therapy but no reported shortness of breath or chest
Labs
-
Labs:
WBC 11.6 10^3/uL (4.8-10.8) H 06/27/25 06:43
RBC 4.45 10^6/uL (4.70-6.10) L 06/27/25 06:43
Hgb 12.1 g/dL (13.0-18.0) L 06/27/25 06:43
Hct 38.0 % (39.0-52.0) L 06/27/25 06:43
Plt Count 198 10^3/uL (130-400) 06/27/25 06:43
Sodium 133 mmol/L (135-145) L 06/27/25 06:43
Potassium 5.2 mmol/L (3.5-5.1) H 06/27/25 06:43
Chloride 97 mmol/L (98-107) L 06/27/25 06:43
Carbon Dioxide 33 mmol/L (22-30) H 06/27/25 06:43
BUN 80 mg/dl (9-20) H 06/27/25 06:43
Creatinine 2.2 mg/dL (0.7-1.3) H 06/27/25 06:43
eGFR 28.99 06/27/25 06:43
Glucose 100 mg/dl (70-99) H 06/27/25 06:43
Calcium 8.2 mg/dl (8.4-10.2) L 06/27/25 06:43
Nka-R-Fxbpuersklv Pept 5540 pg/ml 06/20/25 11:20
Albumin 2.6 g/dl (3.5-5.0) L 06/27/25 06:43
Physical Exam
-
Vital Signs:
Vital Signs
Temp Pulse Resp BP Pulse Ox
97.7 F 56 18 156/70 97
06/27/25 11:32 06/27/25 11:32 06/27/25 11:32 06/27/25 11:32 06/27/25 11:32
Cardiovascular:: Regular rate and rhythm
Respiratory:: Bilateral: Coarse (With some fine crackles at base)
Lung Excursion:: Normal
Abdomen:: Nontender and Soft
Bowel Sounds:: Normal
Extremity Edema:: +1: Bilateral:
Rey Catheter: No
--- NOTE | 2025-06-27 13:35 | CM ---
Reviewed the chart notes. Patient is s/p rbotic assisted laparoscopic YAYA repair left inguinal and spigelian hernia with mesh. CM continues to be available to patient/family and is monitoring medical plan for needs at discharge.
Plan: Discharge plans will depend on the patient's progress. Patient would benefit from PT/OT evaluation for discharge planning purposes.
--- NOTE | 2025-06-27 13:44 | W.PN.GS2 ---
Today's Communication / Plan
-
Diet as tolerated
Assessment / Plan
-
85-year-old male who was admitted to the hospitalist service on 06/20/2025 secondary to worsening lower extremity edema and shortness of breath. Seen by surgery service for recurrent left inguinal hernia.
POD #1 Robotic assisted laparoscopic YAYA repair left inguinal and spigelian hernia with mesh; 3D max extra-large mid weight.
AFVSS
Mild reactive leukocytosis
Renal labs abnormal: nephrology following
Doing well from post operative standpoint
Tolerating diet, passing BM's
Barcenas placed intraop and left in place d/t concern for retention as distended bladder noted
Plan:
Continue diet as tolerated
Analgesics prn
Continue barcenas, d/w primary team, will start tamsulosin 0.4mg and follow for voiding trial later this admission
OOB/Ambulate
Ok to continue lovenox for VTE ppx, adjusted to renal dosage
Subjective Data
-
Date of Service: June 27, 2025
Pt seen and examined at bedside. Denies n/v. Tolerating diet. Passed a BM today. No pain to groin site unless he coughs. Utilizing ice packs with good results. Notes difficulty urinating at baseline with some dysuria.
Objective Data
-
Intake and Output
06/26/25 06/27/25 06/28/25
06:59 06:59 06:59
Intake Total 900 / 900 910 / 910
Output Total 2149 / 2149 1950 / 1950
Balance -1250 / -1250 -1040 / -1040
Intake:
Oral fluids 900 / 900 900 / 900
IV fluids (Total) 10 / 10
NSS 10 / 10
Output:
Urine, Barcenas 1824 / 1824
Urine, Voided 2149 / 2149 125 / 125
Other:
Number of approximated MODERATE 1
amounts of urine
Vital Signs
Temp Pulse Resp BP Pulse Ox
97.7 F 56 18 156/70 97
06/27/25 11:32 06/27/25 11:32 06/27/25 11:32 06/27/25 11:32 06/27/25 11:32
Lab Results
06/27/25 06:43
06/27/25 06:43
Calcium 8.2 mg/dl (8.4-10.2) L 06/27/25 06:43
Magnesium 2.5 mg/dl (1.6-2.3) H 06/27/25 06:43
Total Bilirubin 0.3 mg/dl (0.2-1.3) 06/27/25 06:43
AST 30 U/L (17-59) 06/27/25 06:43
ALT 16 U/L (0-50) 06/27/25 06:43
Alkaline Phosphatase 104 U/L (38-126) 06/27/25 06:43
Total Protein 5.8 g/dl (6.3-8.2) L 06/27/25 06:43
Albumin 2.6 g/dl (3.5-5.0) L 06/27/25 06:43
Physical Exam
-
NAD
ABD soft, nt, nd
Incisions well approximated, intact glue, no erythema
barcenas with clear, yellow urine
Patient has a barcenas catheter: Yes
[2025-06-27 15:30] VITALS: BP 151/65
[2025-06-27] MEDS: LOVENOX 30 MG SC (17:38)
[2025-06-27] MEDS: FLOMAX 0.4 MG PO (17:39)
[2025-06-27 19:30] VITALS: BP 154/66
[2025-06-27] MEDS: ROXICODONE 5 MG PO (20:04)
[2025-06-27] MEDS: ZOLOFT 25 MG PO (20:52)
[2025-06-27 23:16] VITALS: BP 156/73
[2025-06-28] VITALS (8 sets, daily range): BP systolic 117–146; BP diastolic 53–74; PULSE 57; O2SAT 94; BMI 23.6
[2025-06-28 06:58] LABS: Hematocrit 37.2 % (39.0-52.0); Hemoglobin 11.8 g/dL (13.0-18.0); Mean Corp Hgb Conc. 31.7 g/dL (33.0-37.0); Mean Corpuscular Volume 85.7 fL (80.0-94.0); Nucleated Red Blood Cells % 0 % (-); Platelet Count 163 10^3/uL (130-400); Red Cell Dist. Width 14.8 % (11.5-14.5)
[2025-06-28 07:27] LABS: ALT (SGPT) 17 U/L (0-50); AST (SGOT) 36 U/L (17-59); Albumin 2.5 g/dl (3.5-5.0); Alkaline Phosphatase 100 U/L (38-126); Blood Urea Nitrogen 83 mg/dl (9-20); Calcium 8.0 mg/dl (8.4-10.2); Carbon Dioxide 34 mmol/L (22-30); Chloride 98 mmol/L (98-107); Estimated Creatinine Clearance 27 ml/min; Glucose 92 mg/dl (70-99); Magnesium 2.5 mg/dl (1.6-2.3); Potassium 5.1 mmol/L (3.5-5.1); Sodium 135 mmol/L (135-145); Total Protein 5.6 g/dl (6.3-8.2); eGFR 30.66
--- NOTE | 2025-06-28 07:34 | W.PN.HOSP.TC ---
Today's Communication/Plan
-
Nephrology will reevaluate patient today.
Will trial tamsulosin
Holding diuretics
Trend labs
Assessment / Plan
Assessment / Plan
A 85-year-old male with a past medical history of CHF, nephrotic syndrome, CKD, hypertension and COPD who presented with progressive shortness of breath and leg swelling.� Patient got a kidney biopsy done 2 days ago at [place], and has had
progressive leg swelling with shortness of breath, orthopnea and abdominal distention.� Per , normally his weight is 166 lbs, but it was 177 lbs this morning. Renal biopsy from 06/17/2025 revealed membranous nephropathy.
CT abdomen/pelvis: Fat-containing left inguinal hernia with mild fluid. This can be seen with developing incarceration/strangulation. Small bilateral loculated pleural effusions. This corresponds to the recent right lung radiographic finding.
Possible left renal soft tissue mass. Nonurgent dedicated CT of the kidneys pre- and post-IV contrast or MRI examination recommended. Tiny pericardial effusion versus pericardial thickening. Findings consistent with prior benign granulomatous
disease. A couple too small to characterize hypodense hepatic lesions likely small cysts or hemangiomas. Bilateral too small to characterize hypodense renal lesions likely benign cysts. A couple hyperdense subcentimeter left renal lesions likely
benign proteinaceous cysts is mild fecal material in colon.
Bilateral lower extremity ultrasound: No sonographic evidence for lower extremity venous thrombosis.
Assessment/Plan:
# Nephrotic syndrome with membranous nephropathy
# Acute kidney injury
Renal biopsy from 06/17/2025 revealed membranous nephropathy with anti�PLA2R antibody negative, which may suggest a secondary variant of membranous nephropathy.� Secondary variant of membranous nephropathy can be attributed to underlying malignancies.
CT abdomen/pelvis as above.
�Nephrology consulted and following. Hold bumetanide. Was put on IV Lasix 80 Mg TID, metolazone to twice daily, and continued amiloride. Spironolactone discontinued 06/23/25.
�Responded well to diuresis, no need for acute dialysis.
�Creatinine 06/25/2025 1.7, increased to 2.2 on 06/27/2025-indicating ROLANDA. Diuretics held.
�Acute viral hepatitis panel (B/C)- NEGATIVE.
�[place] lambda ratio 1.3, immunoglobulins normal, cryoglobulin negative.
� Bilateral duplex venous ultrasound ordered due to risk of hypercoagulability from nephrotic syndrome- NEGATIVE
�PSA negative, low prostate cancer probability.
# Hyperkalemia
# Hyponatremia
- Patient's hyperkalemia has been managed by Kayexalate 15 g as needed. K today 06/28/2025 is 5.1.
- Na 133 on 06/25/25, now 06/28/2025 Na 135.
- Will trend BMP
# Left inguinal hernia
# Leukocytosis
CT as above: possible developing incarceration/strangulation of left inguinal hernia.
�Laparoscopic robotic assisted transabdominal preperitoneal repair left inguinal and spigelian hernia with mesh; 3D max extra-large mid weight on 06/26/25 for hernial repair. Surgery following.
�Surgery recommends continuing diet as tolerated, analgesic as needed, continue Rey-start tamsulosin 0.4 mg and follow-up for voiding trial later this admission. Continue Lovenox -renal dosed.
�WBC count 11.6 06/27/2025. Decreased to 9.1 on 06/28/2025. Will continue to trend CBC.
# Chest pain likely due to GERD- resolved
# GERD
EKG 06/24/25 showed sinus bradycardia and low voltage.
- Patient had an episode of chest pressure and 'sour taste' overnight 06/23/25, which was relieved after tums, IV Protonix and IV Dilaudid 0.25 mg.
- Continue Protonix 40 mg PO daily.
# Acute diastolic CHF exacerbation
Echo April 2025 showed preserved ejection fraction
EKG showed normal sinus rhythm with no acute ischemic change
Troponin 0.015, no chest pain
�Cardiology consulted.� Continue beta vicky, Aldactone, Farxiga.� Cardiology signed off 06/23/2025.
�Follow daily weights, I&Os.
-Continue sodium restricted diet.
# Right lung base opacity
CXR revealed well marginated opacity within the right lung base measuring 6.1 x 5.4 cm which may represent a pneumonia with a developing abscess.� This could also represent loculated fluid within the fissure.� Mild thickening of the right minor
fissure.� Diffusely increased interstitial opacities bilaterally.
- CT chest with IV contrast: small bilateral loculated pleural effusions.
�Patient asymptomatic, will continue to monitor to see if intervention is needed.
#Bradycardia
- Carvedilol dose was decreased from 6.25 mg to 3.125 PO BID.
- Heart rate 57 today 06/28/25. Continue Carvedilol 3.125 mg PO BID.�
- Monitor heart rate.
# Hypertension
-Continue Norvasc/Aldactone/Hydralazine/Coreg
# Depression
-Continue Zoloft
DVT prophylaxis: Lovenox�
Full code
Anticipated Discharge: 24 - 48 hours
Subjective/Interval History
-
Date of Service: June 28, 2025
Upon evaluation of patient today, patient states he feels well. No shortness of breath or chest pain. No new complaints.
Objective Data
-
Labs:
Laboratory Results
06/28/25
06:18
WBC 9.1
Hgb 11.8 L
Hct 37.2 L
Plt Count 163
Sodium 135
Potassium 5.1
Chloride 98
Carbon Dioxide 34 H
BUN 83 H
Creatinine 2.1 H
Glucose 92
Calcium 8.0 L
Total Bilirubin 0.4
AST 36
ALT 17
Alkaline Phosphatase 100
Vital Signs:
Vital Signs
Temp Pulse Resp BP Pulse Ox
97.7 F 61 18 146/74 98
06/28/25 03:00 06/28/25 03:00 06/28/25 03:00 06/28/25 03:00 06/28/25 03:00
I&O
06/27/25 06/28/25 06/29/25
06:59 06:59 06:59
Intake Total 910 / 910 720 / 720
Output Total 1950 / 1950 1200 / 1200
Balance -1040 / -1040 -480 / -480
Review of Systems
-
History Source: Patient
Constitutional: Reports No Symptoms
EENT: Reports No Symptoms Reported
Respiratory: Reports No Symptoms
Cardiac: Reports No Symptoms
Abdomen/GI: Reports No Symptoms
Breast: Reports No Symptoms
Genitourinary: Reports No Symptoms
Musculoskeletal: Reports No Symptoms
Skin: Reports No Symptoms
Neuro: Reports No Symptoms
Physical Exam
-
General: Well Developed, Well Nourished, No Apparent Distress and Conversant
HEENT: Normocephalic, Atraumatic, Moist Mucous Membranes and Anicteric
Respiratory: Clear to Auscultation
Cardiac: Regular Rhythm and S1/S2
GI: Soft, Nontender, Nondistended, Normal Bowel Sounds and Other (Laparoscopic incisions over abdomen, clean dry and intact)
Genito-urinary: Rey
Musculoskeletal: No Clubbing, No Cyanosis and No Edema
Skin: Warm
Neuro: Awake, AO x 3 and Nonfocal/Grossly Intact
Psych: Calm
Data Reviewed
-
Labs: Labs Reviewed by me and Discussed with Physician
Old Records: Reviewed
--- NOTE | 2025-06-28 07:42 | W.PN.UPDATE ---
Update Note
Progress Note Update
I saw and evaluated the patient. I reviewed the resident�s note and agree with findings and plan as documented in the resident�s note.
Denies CP/SOB.
Gen: NAD, Awake and alert
Eyes: EOMI, PERRLA, no scleral icterus.
Neck: supple.
CV: remains RRR, +S1/S2, no m/r/g.
Resp: remains CTAB anteriorly, no rales, wheezes, or rhonchi.
Abd: +BS, soft, NT to light palpation, ND
Skin: No rashes. no LE edema
Neuro: CN 2-12 intact, non-focal.
Psych: Normal mood and affect.
CT C/A/P: Fat-containing left inguinal hernia with mild fluid. This can be seen with developing incarceration/strangulation. Small bilateral loculated pleural effusions. This corresponds to the recent right lung radiographic finding. Possible left
renal soft tissue mass. Nonurgent dedicated CT of the kidneys pre- and post-IV contrast or MRI examination recommended. Tiny pericardial effusion versus pericardial thickening. Findings consistent with prior benign granulomatous disease. A couple
too small to characterize hypodense hepatic lesions likely small cysts or hemangiomas. Bilateral too small to characterize hypodense renal lesions likely benign cysts. A couple hyperdense subcentimeter left renal lesions likely benign proteinaceous
cysts is mild fecal material in colon.
B/L LE U/S: No sonographic evidence for lower extremity venous thrombosis.
Acute hypoxemic respiratory failure due to acute HFpEF:
-s/p IV Lasix and Zaroxolyn, now stopped with Cr bump (ROLANDA)
-cont Amiloride
-daily wts, I/Os
-cont BB/Farxiga
-cards saw in c/s, renal managing diuretics
Nephrotic syndrome with membranous nephropathy:
-dx'd by biopsy 06/17/25, anti-PLA2R Ab NEG which may suggest a secondary variant of membranous nephropathy
-acute viral hepatitis panel (B+C) NEG
-SPEP: Restricted band of protein migration in the gamma region which is too small to quantify. BEA gel shows a faint band in IgG kappa which may be indicative of a specific immune response or an early monoclonal protein.
-[place]/Lambda 1.3
-immunoglobulins normal, cryoglobulin NEG
-renal following
Other problems:
L inguinal hernia: s/p Robotic assisted laparoscopic YAYA repair left inguinal and spigelian hernia with mesh; 3D max extra-large mid weight 06/26/25
Hyponatremia, resolved
Hyperkalemia, 15g Kayexalate
Multidrug-resistant essential HTN: Cont Norvasc/Aldactone/Hydralazine/Coreg
Bradycardia: Coreg decreased
Depression: cont Zoloft
GERD: cont PPI
FULL/Lovenox
Begin d/c planning
[2025-06-28] MEDS: SPIRIVA RESPIMAT 2.5 MCG 2 PUFF INH (07:54)
[2025-06-28] MEDS: SYMBICORT 80/4.5 MCG INHALER 2 PUFF INH ×2 (07:54→17:43)
[2025-06-28] MEDS: APRESOLINE 37.5 MG PO ×2 (09:47→20:00)
[2025-06-28] MEDS: MIDAMOR 10 MG PO (09:47)
[2025-06-28] MEDS: PROTONIX 40 MG PO (09:47)
[2025-06-28] MEDS: FARXIGA 10 MG PO (09:47)
[2025-06-28] MEDS: COREG 3.125 MG PO ×2 (09:48→20:00)
[2025-06-28] MEDS: ASPIR LOW (ENTERIC COATED) 81 MG PO (09:48)
[2025-06-28] MEDS: NORVASC 5 MG PO (09:48)
--- NOTE | 2025-06-28 11:23 | W.PN.NEPH.PH ---
Today's Communication / Plan
-
Diamox x 2 doses IV
Assessment/Plan
-
Impression:
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
Decompensated congestive heart failure: Likely secondary to renal failure
History of HFpEF
Pulmonary hypertension
History of recent incarcerated left inguinal hernia repair on 02/23/2025
Anemia
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
CKD (1.6): Renal ultrasound notes bilateral renal cysts no hydronephrosis normal size kidneys)
History of hypertension
History of pulmonary hypertension
History of moderate MR
PAD with moderate to severe claudication
Plan:
Dr. Lechuga spoke with nephro pathologist from [facility] in regards to the patient's renal biopsy that he underwent on 06/17/2025. The patient's biopsy report was consistent with membranous nephropathy. The patient's anti-PLA2R antibody
however has been negative and henceforth it appears that this may be a secondary variant of membranous nephropathy. Secondary membranous nephropathy can be attributed to underlying malignancies/full workup: Dysproteinemia workup negative
hepatitis and cryoglobulin serologies.
reportedly has had a recent colonoscopy which was negative.
CT of chest abdomen and pelvis =Possible left renal soft tissue mass. Nonurgent dedicated CT of the kidneys pre- and post-IV contrast or MRI examination recommended
consider treating this as a primary variant with rituximab/or calcineurin inhibitor = unlikely to get approval from insurance/would consider [facility] consultation if pursuing Rituxan
06/23 Added amiloride (ENac inhibitor) in setting of severe nephrotic syndrome with persistent third space
Monitor bicarb closely with aggressive diuresis
Weights down
Creatinine elevated but stabilized from yesterday
Holding loop diuretic
Will add Diamox IV x 2 doses
=====
High complexity due to ongoing need for aggressive IV diuresis with worsening kidney function
-
-
Date of Service: June 28, 2025
CC / HPI / ROS
-
Chief Complaint:
CKD/membranous nephropathy
History of Present Illness:
Creatinine worsening at 1.8 baseline
Hemodynamically stable
on IV diuresis for volume overload
Review of Systems:
Nonoliguric
Weights down
Remains on oxygen therapy but no reported shortness of breath or chest
Labs
-
Labs:
WBC 9.1 10^3/uL (4.8-10.8) 06/28/25 06:18
RBC 4.34 10^6/uL (4.70-6.10) L 06/28/25 06:18
Hgb 11.8 g/dL (13.0-18.0) L 06/28/25 06:18
Hct 37.2 % (39.0-52.0) L 06/28/25 06:18
Plt Count 163 10^3/uL (130-400) 06/28/25 06:18
Sodium 135 mmol/L (135-145) 06/28/25 06:18
Potassium 5.1 mmol/L (3.5-5.1) 06/28/25 06:18
Chloride 98 mmol/L (98-107) 06/28/25 06:18
Carbon Dioxide 34 mmol/L (22-30) H 06/28/25 06:18
BUN 83 mg/dl (9-20) H 06/28/25 06:18
Creatinine 2.1 mg/dL (0.7-1.3) H 06/28/25 06:18
eGFR 30.66 06/28/25 06:18
Glucose 92 mg/dl (70-99) 06/28/25 06:18
Calcium 8.0 mg/dl (8.4-10.2) L 06/28/25 06:18
Xcp-V-Ouqmykldwep Pept 5540 pg/ml 06/20/25 11:20
Albumin 2.5 g/dl (3.5-5.0) L 06/28/25 06:18
Physical Exam
-
Vital Signs:
Vital Signs
Temp Pulse Resp BP Pulse Ox
97.5 F 57 16 146/69 96
06/28/25 06:40 06/28/25 07:55 06/28/25 07:55 06/28/25 06:40 06/28/25 07:55
Cardiovascular:: Regular rate and rhythm
Respiratory:: Bilateral: Coarse (With some fine crackles at base)
Lung Excursion:: Normal
Abdomen:: Nontender and Soft
Bowel Sounds:: Normal
Extremity Edema:: +1: Bilateral:
Rey Catheter: No
--- NOTE | 2025-06-28 11:35 | W.PN.UPDATE ---
Update Note
Progress Note Update
Correction from blood makes note I will not order acetazolamide and will hold all diuretics today
Also give Benadryl for rash she developed on the back
Discussed with the primary hospitalist
[2025-06-28] MEDS: BENADRYL 25 MG IV ×2 (12:10→19:59)
[2025-06-28] MEDS: LOVENOX 30 MG SC (17:39)
[2025-06-28] MEDS: FLOMAX 0.4 MG PO (17:39)
[2025-06-28] MEDS: FLUSH (NSS) 2 FLUSH IV (20:01)
[2025-06-28] MEDS: ZOLOFT 25 MG PO (23:07)
[2025-06-29 03:23] VITALS: BP 139/66
[2025-06-29] MEDS: BENADRYL 25 MG PO (03:58)
[2025-06-29 05:30] VITALS: BMI 23.8
--- NOTE | 2025-06-29 06:15 | PTCARENOTE ---
Rey catheter removed per MD order. Patient was educated and agreeable to procedure. Patient tolerated procedure well. Catheter tip intact. Blood tinged urine was in Rey bag with a few tiny clots. Patient placed on 'time and amount' until
12:15p. PCT aware.
[2025-06-29 06:25] LABS: Hematocrit 35.6 % (39.0-52.0); Hemoglobin 11.3 g/dL (13.0-18.0); Mean Corp Hgb Conc. 31.7 g/dL (33.0-37.0); Mean Corpuscular Volume 86.2 fL (80.0-94.0); Nucleated Red Blood Cells % 0 % (-); Platelet Count 168 10^3/uL (130-400); Red Cell Dist. Width 14.7 % (11.5-14.5)
[2025-06-29 06:34] LABS: ALT (SGPT) 16 U/L (0-50); AST (SGOT) 32 U/L (17-59); Albumin 2.4 g/dl (3.5-5.0); Alkaline Phosphatase 99 U/L (38-126); Blood Urea Nitrogen 87 mg/dl (9-20); Calcium 8.0 mg/dl (8.4-10.2); Carbon Dioxide 32 mmol/L (22-30); Chloride 100 mmol/L (98-107); Estimated Creatinine Clearance 29 ml/min; Glucose 99 mg/dl (70-99); Magnesium 2.5 mg/dl (1.6-2.3); Potassium 4.9 mmol/L (3.5-5.1); Sodium 133 mmol/L (135-145); Total Protein 5.4 g/dl (6.3-8.2); eGFR 34.57
[2025-06-29] MEDS: SYMBICORT 80/4.5 MCG INHALER 2 PUFF INH ×2 (07:33→20:58)
[2025-06-29] MEDS: SPIRIVA RESPIMAT 2.5 MCG 2 PUFF INH (07:33)
--- NOTE | 2025-06-29 07:46 | W.PN.HOSP.TC ---
Today's Communication/Plan
-
Discontinue amiloride per nephro recs
Solu-Medrol 40 Mg IV
Monitor for rash improvement
Assessment / Plan
Assessment / Plan
A 85-year-old male with a past medical history of CHF, nephrotic syndrome, CKD, hypertension and COPD who presented with progressive shortness of breath and leg swelling.� Patient got a kidney biopsy done 2 days ago at [place], and has had
progressive leg swelling with shortness of breath, orthopnea and abdominal distention.� Per , normally his weight is 166 lbs, but it was 177 lbs this morning. Renal biopsy from 06/17/2025 revealed membran[address] neph[address].
CT abdomen/pelvis: Fat-containing left inguinal hernia with mild fluid. This can be seen with developing incarceration/strangulation. Small bilateral loculated pleural effusions. This corresponds to the recent right lung radiographic finding.
Possible left renal soft tissue mass. Nonurgent dedicated CT of the kidneys pre- and post-IV contrast or MRI examination recommended. Tiny pericardial effusion versus pericardial thickening. Findings consistent with prior benign granulomatous
disease. A couple too small to characterize hypodense hepatic lesions likely small cysts or hemangiomas. Bilateral too small to characterize hypodense renal lesions likely benign cysts. A couple hyperdense subcentimeter left renal lesions likely
benign proteinaceous cysts is mild fecal material in colon.
Bilateral lower extremity ultrasound: No sonographic evidence for lower extremity venous thrombosis.
Assessment/Plan:
# Nephrotic syndrome with membranous nephropathy
# Acute kidney injury
Renal biopsy from 06/17/2025 revealed membranous nephropathy with anti�PLA2R antibody negative, which may suggest a secondary variant of membranous nephropathy.� Secondary variant of membranous nephropathy can be attributed to underlying malignancies.
CT abdomen/pelvis as above.
� consulted and following. Hold bumetanide. Was diuresed using IV Lasix 80 Mg 3 TID, and amiloride was added. Spironolactone discontinued 06/23/25.
� Creatinine 06/25/2025 1.7, increased to 2.2 on 06/27/2025-indicating ROLANDA. Diuretics held.
� Acute viral hepatitis panel (B/C)- NEGATIVE.
� SPEP: Restricted band of protein migration in the gamma region which is too small to quantify. BEA gel shows a faint band in IgG kappa which may be indicative of a specific immune response or an early monoclonal protein.
� [place] lambda ratio 1.3, immunoglobulins normal, cryoglobulin negative.
� Bilateral duplex venous ultrasound ordered due to risk of hypercoagulability from nephrotic syndrome- NEGATIVE
� PSA negative, low prostate cancer probability.
# Maculopapular rash -may be due to contact dermatitis
- Patient having a maculopapular rash for the past day. Given Benadryl IV, which only provided temporary relief.
- Nephrology recs discontinuing amiloride at this time. Given solumedrol 40 mg IV.
# Hyperkalemia
# Hyponatremia
- Patient's hyperkalemia has been managed by Kayexalate 15 g as needed. K today 06/28/2025 is 5.1.
- Na 133 on 06/25/25, now 06/28/2025 Na 135.
- Will trend BMP
# Left inguinal hernia
# Leukocytosis�likely reactive
CT as above: possible developing incarceration/strangulation of left inguinal hernia.
�Laparoscopic robotic assisted transabdominal preperitoneal repair left inguinal and spigelian hernia with mesh; 3D max extra-large mid weight on 06/26/25 for hernial repair. Surgery following.
�Surgery recommends continuing diet as tolerated, analgesic as needed, continue Rey-start tamsulosin 0.4 mg and follow-up for voiding trial later this admission. Continue Lovenox -renal dosed.
�WBC count 11.6 06/27/2025. Decreased to 9.1 on 06/28/2025. Will continue to trend CBC.
# Chest pain likely due to GERD- resolved
# GERD
EKG 06/24/25 showed sinus bradycardia and low voltage.
- Patient had an episode of chest pressure and 'sour taste' overnight 06/23/25, which was relieved after tums, IV Protonix and IV Dilaudid 0.25 mg.
- Continue Protonix 40 mg PO daily.
# Acute diastolic CHF exacerbation
Echo April 2025 showed preserved ejection fraction
EKG showed normal sinus rhythm with no acute ischemic change
Troponin 0.015, no chest pain
�Cardiology consulted.� Continue beta vicky, Aldactone, Farxiga.� Cardiology signed off 06/23/2025.
�Follow daily weights, I&Os.
-Continue sodium restricted diet.
# Right lung base opacity
CXR revealed well marginated opacity within the right lung base measuring 6.1 x 5.4 cm which may represent a pneumonia with a developing abscess.� This could also represent loculated fluid within the fissure.� Mild thickening of the right minor
fissure.� Diffusely increased interstitial opacities bilaterally.
- CT chest with IV contrast: small bilateral loculated pleural effusions.
�Patient asymptomatic, will continue to monitor to see if intervention is needed.
#COPD
#Hypoxia
- O2 06/29/25 93% on room air. Monitor.
- Continue Spiriva, Symbicort.
#Bradycardia
- Carvedilol dose was decreased from 6.25 mg to 3.125 PO BID.
- Heart rate 57 today 06/28/25. Continue Carvedilol 3.125 mg PO BID.�
- Monitor heart rate.
# Hypertension
-Continue Norvasc/Aldactone/Hydralazine/Coreg
# Depression
-Continue Zoloft
DVT prophylaxis: Lovenox�
Full code
Anticipated Discharge: Within 24 hours
Subjective/Interval History
-
Date of Service: June 29, 2025
Patient states his rash on the back is making him very uncomfortable. Per son, 'he keeps scratching it and will not leave it alone.' Son is concerned that this may be due to a drug reaction. Otherwise denies shortness of breath, chest pain or any
other symptoms.
Objective Data
-
Labs:
Laboratory Results
06/29/25
05:55
WBC 9.9
Hgb 11.3 L
Hct 35.6 L
Plt Count 168
Sodium 133 L
Potassium 4.9
Chloride 100
Carbon Dioxide 32 H
BUN 87 H
Creatinine 1.9 H
Glucose 99
Calcium 8.0 L
Total Bilirubin 0.4
AST 32
ALT 16
Alkaline Phosphatase 99
Vital Signs:
Vital Signs
Temp Pulse Resp BP Pulse Ox
98.5 F 64 16 139/66 93
06/29/25 03:23 06/29/25 07:40 06/29/25 07:40 06/29/25 03:23 06/29/25 07:40
I&O
06/28/25 06/29/25 06/30/25
06:59 06:59 06:59
Intake Total 720 / 720 1680 / 1680
Output Total 1200 / 1200 1100 / 1100
Balance -480 / -480 580 / 580
Review of Systems
-
History Source: Patient
Constitutional: Reports No Symptoms
EENT: Reports No Symptoms Reported
Respiratory: Reports No Symptoms
Cardiac: Reports No Symptoms
Abdomen/GI: Reports No Symptoms
Breast: Reports No Symptoms
Genitourinary: Reports No Symptoms
Musculoskeletal: Reports No Symptoms
Skin: Reports Rash (maculopapular to the back)
Neuro: Reports No Symptoms
Physical Exam
-
General: Well Developed, Well Nourished, No Apparent Distress and Conversant
HEENT: Normocephalic, Atraumatic, Moist Mucous Membranes and Anicteric
Respiratory: Clear to Auscultation
Cardiac: Regular Rhythm and S1/S2
GI: Soft, Nontender, Nondistended, Normal Bowel Sounds and Other (Laparoscopic incisions over abdomen, clean dry and intact)
Genito-urinary: Rey
Musculoskeletal: No Clubbing, No Cyanosis and No Edema
Skin: Warm and Rash (maculopapular rash to the back with some scabbing )
Neuro: Awake, AO x 3 and Nonfocal/Grossly Intact
Psych: Calm
Data Reviewed
-
Labs: Labs Reviewed by me and Discussed with Physician
Old Records: Reviewed
[2025-06-29 07:50] VITALS: BP 126/62
--- NOTE | 2025-06-29 07:52 | W.PN.UPDATE ---
Addendum entered and electronically signed by Brody Martinez MD 06/29/25 09:08:
Correction to skin exam: Maculopapular rash on the back
Original Note:
Update Note
Progress Note Update
I saw and evaluated the patient. I reviewed the resident�s note and agree with findings and plan as documented in the resident�s note.
Denies CP/SOB.
Gen: NAD, Awake and alert
Eyes: EOMI, PERRLA, no scleral icterus.
Neck: supple.
CV: Continues to remain RRR, +S1/S2, no m/r/g.
Resp: Continues to remain CTAB anteriorly, no rales, wheezes, or rhonchi.
Abd: +BS, soft, NT, ND
Skin: No rashes. no LE edema
Neuro: CN 2-12 intact, non-focal.
Psych: Normal mood and affect.
CT C/A/P: Fat-containing left inguinal hernia with mild fluid. This can be seen with developing incarceration/strangulation. Small bilateral loculated pleural effusions. This corresponds to the recent right lung radiographic finding. Possible left
renal soft tissue mass. Nonurgent dedicated CT of the kidneys pre- and post-IV contrast or MRI examination recommended. Tiny pericardial effusion versus pericardial thickening. Findings consistent with prior benign granulomatous disease. A couple
too small to characterize hypodense hepatic lesions likely small cysts or hemangiomas. Bilateral too small to characterize hypodense renal lesions likely benign cysts. A couple hyperdense subcentimeter left renal lesions likely benign proteinaceous
cysts is mild fecal material in colon.
B/L LE U/S: No sonographic evidence for lower extremity venous thrombosis.
Acute hypoxemic respiratory failure due to acute HFpEF:
-s/p IV Lasix and Zaroxolyn, now stopped with Cr bump (ROLANDA on CKD3b), Cr now improving
-cont Amiloride
-daily wts, I/Os
-cont BB/Farxiga
-cards saw in c/s, renal managing diuretics
-as per renal, d/c on Torsemide 40mg daily
Nephrotic syndrome with membranous nephropathy:
-dx'd by biopsy 06/17/25, anti-PLA2R Ab NEG which may suggest a secondary variant of membranous nephropathy
-acute viral hepatitis panel (B+C) NEG
-SPEP: Restricted band of protein migration in the gamma region which is too small to quantify. BEA gel shows a faint band in IgG kappa which may be indicative of a specific immune response or an early monoclonal protein.
-[place]/Lambda 1.3
-immunoglobulins normal, cryoglobulin NEG
-renal following
Other problems:
CKD3b
L inguinal hernia: s/p Robotic assisted laparoscopic YAYA repair left inguinal and spigelian hernia with mesh; 3D max extra-large mid weight 06/26/25
Hyponatremia, mild
Hyperkalemia, resolved
Multidrug-resistant essential HTN: Cont Norvasc/Amiloride/Hydralazine/Coreg
Bradycardia: Coreg decreased
Depression: cont Zoloft
GERD: cont PPI
FULL/Lovenox
Medically cleared for discharge. Case management aware.
--- NOTE | 2025-06-29 09:10 | CM ---
Reviewed the chart notes and spoke with the patient at the bedside. IMM reviewed. Patient for discharge to home today. No needs. Patient's son will provide transportation home.
[2025-06-29] MEDS: MIDAMOR PO ×2 (09:42→09:46)
[2025-06-29] MEDS: COREG 3.125 MG PO ×2 (09:42→20:54)
[2025-06-29] MEDS: FARXIGA 10 MG PO (09:43)
[2025-06-29] MEDS: PROTONIX 40 MG PO (09:43)
[2025-06-29] MEDS: ASPIR LOW (ENTERIC COATED) 81 MG PO (09:43)
[2025-06-29] MEDS: NORVASC 5 MG PO (09:43)
[2025-06-29] MEDS: APRESOLINE 37.5 MG PO ×2 (09:44→20:54)
[2025-06-29] MEDS: SOLU-MEDROL PF 40 MG IV (11:34)
[2025-06-29 11:59] VITALS: BP 123/57
--- NOTE | 2025-06-29 13:07 | PTCARENOTE ---
Hypoallergenic sheets applied to patients bed and chair given itchy red macular rash on back
--- NOTE | 2025-06-29 15:14 | W.PN.NEPH.PH ---
Today's Communication / Plan
-
Discontinued amiloride and Flomax
IV Solu-Medrol x 1
Assessment/Plan
-
Impression:
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
Decompensated congestive heart failure: Likely secondary to renal failure
History of HFpEF
Pulmonary hypertension
History of recent incarcerated left inguinal hernia repair on 02/23/2025
Anemia
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
CKD (1.6): Renal ultrasound notes bilateral renal cysts no hydronephrosis normal size kidneys)
History of hypertension
History of pulmonary hypertension
History of moderate MR
PAD with moderate to severe claudication
Plan:
Dr. Lechuga spoke with nephro pathologist from [facility] in regards to the patient's renal biopsy that he underwent on 06/17/2025. The patient's biopsy report was consistent with membranous nephropathy. The patient's anti-PLA2R antibody
however has been negative and henceforth it appears that this may be a secondary variant of membranous nephropathy. Secondary membranous nephropathy can be attributed to underlying malignancies/full workup: Dysproteinemia workup negative
reportedly has had a recent colonoscopy which was negative.
CT of chest abdomen and pelvis =Possible left renal soft tissue mass. Nonurgent dedicated CT of the kidneys pre- and post-IV contrast or MRI examination recommended otpt
consider treating this as a primary variant with rituximab/or calcineurin inhibitor = unlikely to get approval from insurance/would consider [facility] consultation if pursuing Rituxan. Will try here otpt at [place]
06/23 Added amiloride (ENac inhibitor) in setting of severe nephrotic syndrome with persistent third space = discontinued 06/29
He developed a rash on his back possibly drug reaction.
Discontinued due to numerous medications in the last week amiloride and Flomax.
Ordered Solu-Medrol 40 mg x 1 this morning with improvement in his symptoms itchiness and redness.
Reevaluate tomorrow and hopefully will be okay for discharged.
From a renal standpoint he is stable for discharge
Diuretics currently on hold as he examines euvolemic.
Suggest torsemide 40 mg daily on discharge.
Discussed with his son Christiano who works here at hospital as to the plan.
With nephrotic syndrome would discharge him on aspirin as well
=====
High complexity
-
-
Date of Service: June 29, 2025
CC / HPI / ROS
-
Chief Complaint:
CKD/membranous nephropathy
History of Present Illness:
Creatinine 1.9 baseline around 1.7
Hemodynamically stable
Review of Systems:
Nonoliguric
Weights down
Off oxygen
Labs
-
Labs:
WBC 9.9 10^3/uL (4.8-10.8) 06/29/25 05:55
RBC 4.13 10^6/uL (4.70-6.10) L 06/29/25 05:55
Hgb 11.3 g/dL (13.0-18.0) L 06/29/25 05:55
Hct 35.6 % (39.0-52.0) L 06/29/25 05:55
Plt Count 168 10^3/uL (130-400) 06/29/25 05:55
Sodium 133 mmol/L (135-145) L 06/29/25 05:55
Potassium 4.9 mmol/L (3.5-5.1) 06/29/25 05:55
Chloride 100 mmol/L (98-107) 06/29/25 05:55
Carbon Dioxide 32 mmol/L (22-30) H 06/29/25 05:55
BUN 87 mg/dl (9-20) H 06/29/25 05:55
Creatinine 1.9 mg/dL (0.7-1.3) H 06/29/25 05:55
eGFR 34.57 06/29/25 05:55
Glucose 99 mg/dl (70-99) 06/29/25 05:55
Calcium 8.0 mg/dl (8.4-10.2) L 06/29/25 05:55
Dog-U-Hhlcmqvlezc Pept 5540 pg/ml 06/20/25 11:20
Albumin 2.4 g/dl (3.5-5.0) L 06/29/25 05:55
Physical Exam
-
Vital Signs:
Vital Signs
Temp Pulse Resp BP Pulse Ox
97.9 F 58 20 123/57 93
06/29/25 11:59 06/29/25 11:59 06/29/25 11:59 06/29/25 11:59 06/29/25 11:59
Cardiovascular:: Regular rate and rhythm
Respiratory:: Bilateral: Coarse (With some fine crackles at base)
Lung Excursion:: Normal
Abdomen:: Nontender and Soft
Bowel Sounds:: Normal
Extremity Edema:: +1: Bilateral:
Rey Catheter: No
[2025-06-29 15:50] VITALS: BP 141/65
[2025-06-29] MEDS: LOVENOX 30 MG SC (17:10)
[2025-06-29 19:00] VITALS: BP 157/73
[2025-06-29] MEDS: ZOLOFT 25 MG PO (21:24)
[2025-06-29 23:05] VITALS: BP 176/75
[2025-06-29] MEDS: APRESOLINE 10 MG IV (23:49)
[2025-06-30 03:19] VITALS: BP 142/70
[2025-06-30 05:21] VITALS: BMI 23.6
[2025-06-30 07:28] VITALS: BP 154/71
[2025-06-30] MEDS: SPIRIVA RESPIMAT 2.5 MCG 2 PUFF INH (07:56)
[2025-06-30] MEDS: SYMBICORT 80/4.5 MCG INHALER 2 PUFF INH (07:57)
[2025-06-30 08:19] LABS: Hematocrit 36.1 % (39.0-52.0); Hemoglobin 11.7 g/dL (13.0-18.0); Mean Corp Hgb Conc. 32.4 g/dL (33.0-37.0); Mean Corpuscular Volume 84.5 fL (80.0-94.0); Nucleated Red Blood Cells % 0 % (-); Platelet Count 183 10^3/uL (130-400); Red Cell Dist. Width 14.5 % (11.5-14.5)
[2025-06-30 08:46] LABS: ALT (SGPT) 26 U/L (0-50); AST (SGOT) 40 U/L (17-59); Albumin 2.5 g/dl (3.5-5.0); Alkaline Phosphatase 109 U/L (38-126); Blood Urea Nitrogen 86 mg/dl (9-20); Calcium 8.4 mg/dl (8.4-10.2); Carbon Dioxide 31 mmol/L (22-30); Chloride 99 mmol/L (98-107); Estimated Creatinine Clearance 31 ml/min; Glucose 106 mg/dl (70-99); Magnesium 2.8 mg/dl (1.6-2.3); Potassium 5.6 mmol/L (3.5-5.1); Sodium 131 mmol/L (135-145); Total Protein 5.6 g/dl (6.3-8.2); eGFR 36.89
[2025-06-30] MEDS: PROTONIX 40 MG PO (09:29)
[2025-06-30] MEDS: COREG 3.125 MG PO (09:29)
[2025-06-30] MEDS: ASPIR LOW (ENTERIC COATED) 81 MG PO (09:29)
[2025-06-30] MEDS: FARXIGA 10 MG PO (09:29)
[2025-06-30] MEDS: APRESOLINE 37.5 MG PO (09:30)
[2025-06-30] MEDS: NORVASC 5 MG PO (09:30)
[2025-06-30 09:37] VITALS: BP 134/69; BP 137/111; PULSE 59; O2SAT 96
[2025-06-30 11:25] VITALS: BP 152/65
--- NOTE | 2025-06-30 11:57 | CM ---
Addendum entered by Fidelina Delgado 06/30/25 12:13:
referral sent to [facility] for follow up.
Original Note:
Patient seen at bedside on [address]. Patient plan is for discharge home today, Patient stated that any questions go to patient son, Christiano [phone]. Patient son requested VN due to working schedule and CM updated PA. Son requested referral to
[facility] and will send referral via all script/care in motion. Patient son stated that his brother will provide transportation between 3-4 pm. CM will continue to follow for discharge planning needs.
Plan; home with [facility]; referral to be sent.
--- NOTE | 2025-06-30 12:20 | W.PN.NEPH.PH ---
Today's Communication / Plan
-
[facility]
Assessment/Plan
-
Impression:
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
Decompensated congestive heart failure: Likely secondary to renal failure
History of HFpEF
Pulmonary hypertension
History of recent incarcerated left inguinal hernia repair on 02/23/2025
Anemia
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
CKD (1.6): Renal ultrasound notes bilateral renal cysts no hydronephrosis normal size kidneys)
History of hypertension
History of pulmonary hypertension
History of moderate MR
PAD with moderate to severe claudication
Plan:
Return to [facility] 2 mg p.o. twice daily as outpatient dosing
Follow BMP later this week
Continue Farxiga
No amiloride
For oral steroids given rash
Outpatient treatment of membranous nephropathy to be determined by Dr. Lechuga
-
-
Date of Service: June 30, 2025
CC / HPI / ROS
-
Chief Complaint:
CKD/membranous nephropathy
History of Present Illness:
Creatinine stable at 1.8
Hemodynamically stable
Rash stable
Potassium elevated 5.6
Review of Systems:
Nonoliguric
Weights down
Off oxygen
Labs
-
Labs:
WBC 11.1 10^3/uL (4.8-10.8) H 06/30/25 07:43
RBC 4.27 10^6/uL (4.70-6.10) L 06/30/25 07:43
Hgb 11.7 g/dL (13.0-18.0) L 06/30/25 07:43
Hct 36.1 % (39.0-52.0) L 06/30/25 07:43
Plt Count 183 10^3/uL (130-400) 06/30/25 07:43
Sodium 131 mmol/L (135-145) L 06/30/25 07:43
Potassium 5.6 mmol/L (3.5-5.1) H 06/30/25 07:43
Chloride 99 mmol/L (98-107) 06/30/25 07:43
Carbon Dioxide 31 mmol/L (22-30) H 06/30/25 07:43
BUN 86 mg/dl (9-20) H 06/30/25 07:43
Creatinine 1.8 mg/dL (0.7-1.3) H 06/30/25 07:43
eGFR 36.89 06/30/25 07:43
Glucose 106 mg/dl (70-99) H 06/30/25 07:43
Calcium 8.4 mg/dl (8.4-10.2) 06/30/25 07:43
Usg-I-Kzzlcfdkekp Pept 5540 pg/ml 06/20/25 11:20
Albumin 2.5 g/dl (3.5-5.0) L 06/30/25 07:43
Physical Exam
-
Vital Signs:
Vital Signs
Temp Pulse Resp BP Pulse Ox
97.6 F 57 16 152/65 96
06/30/25 11:25 06/30/25 11:25 06/30/25 11:25 06/30/25 11:25 06/30/25 11:25
Cardiovascular:: Regular rate and rhythm
Respiratory:: Bilateral: Coarse
Lung Excursion:: Normal
Abdomen:: Nontender and Soft
Bowel Sounds:: Normal
Extremity Edema:: +2: Bilateral:
Other Findings::
Blanching macular rash back
--- NOTE | 2025-06-30 14:35 | PTCARENOTE ---
Son, Christiano, will manage patient's medications. Went over discharge instructions with patient and patient's other son.
--- NOTE | 2025-06-30 17:10 | W.DCSUMMARY ---
Discharge Summary
Discharge Data
Date of Admission: 06/20/25
Date of Discharge: 06/30/25
-
Pending Results: No
Hospital Course
Primary care physician : Abad Chung Jr.
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
Chronic Discharge diagnosis : Membranous nephropathy, chronic obstructive pulmonary disease with hypoxia, essential hypertension, depression
Hospital Course : Patient was an 84-year-old male with a history of biopsy-proven membranous nephropathy 2 days prior to admission along with heart failure with preserved ejection fraction, essential hypertension, chronic kidney disease who
presented with progressive shortness of breath. Patient stated he is normally 166 pounds and he was 177 pounds on the morning of admission. He believes his weight gain was over a few weeks prior. He does use supplemental oxygen at baseline but
has needed it continuously for the past few days prior to admission. Patient was admitted.
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 Patient was admitted and seen in consultation by nephrology. Renal biopsy done 06/17/2025 revealed membranous
nephropathy with an anti-PLA2R antibody negative. This suggested a secondary variant and workup was undertaken for other causes. Bumetanide was held and patient placed on IV Lasix 80 mg 3 times a day for diuresis. Spironolactone was discontinued.
Acute viral hepatitis panel both B and C were negative. SPEP/UPEP showed a restricted band of protein migration in the gamma region however was too small to quantify. Bilateral venous duplex ultrasound were negative for DVTs. PSA was negative
and showed low probability for prostate cancer. Patient did well with diuresis and patient weights went from 82.6 kg on admission down to 72.5 kg on the day of discharge. It was recommended that he restart his Bumex at discharge. There was some
concern that perhaps patient would need hemodialysis in order to remove fluid. Fortunately, that was not the case.
Problem #2: Acute kidney injury. Patient has chronic kidney disease. His creatinine increased from baseline of 1.7-2.2. Diuretics were held. Eventually they were resumed for volume overload. Nephrology was consulted and help manage acute issues.
Problem #3: Left inguinal hernia s/p repair. Patient was seen in consultation by surgery. Patient had a CT scan which showed developing incarceration/strangulation of the left inguinal hernia. He then underwent laparoscopic robotic assisted
transabdominal peritoneal repair of the left inguinal and spigelian hernia with mesh. Patient did well and Flomax was started. There was some concern that perhaps that was causing the rash but it was felt to be more due to amiloride as mentioned
below. Patient will follow-up with surgery as an outpatient.
Problem #4: Rash. Patient developed a maculopapular rash likely from the amiloride which was started. He was given IV Benadryl which did not help. IV Solu-Medrol was given and the patient is much improved. He will be sent home on a small steroid
taper.
Problem #5: All other medical issues. These include Membranous nephropathy, chronic obstructive pulmonary disease with hypoxia, essential hypertension, depression. These medical issues were stable during his hospitalization. Medications were
continued as able.
Patient is stable for discharge home at this time. If there are any questions regarding this dictation or his hospital stay, please do not hesitate to call. Our office number is [phone].
Time for discharge 35 minutes.
Discharge Plan
-
Patient Disposition: Home (Routine Discharge)
Discharge Diagnosis/Procedures: Acute exacerbation of congestive heart failure, Cardiorenal syndrome with renal failure, Chronic kidney disease, stage 3b
Nephrotic syndrome due to membranous nephropathy
Condition: Good
Diet: Low Sodium and Restrict fluids to 48 oz
Activity: No strenuous activity
Additional Activity: No lifting over 20lbs
Driving Restrictions: As prior to admission
Bathing Restrictions: OK to Shower
Blood Work: CBC and CMP in 1 week-obtain script from PCP
Wound Care: Avoid soaking in tubs or pools until incisions healed. Glue over your incisions will flake off on its own over the next 2-3 weeks, avoid scrubbing or picking off.
Specialty Instructions: Weigh Daily- Call MD for wt gain/loss 3 lbs overnight/5 lbs in 1 week
Activity Restrictions/Additional Instructions:
Darinel Herrera MD [facility]� -� [facility] [place] General Surgery
[address], [address]
[place] [address]
office - [phone]
Post-Operative Instructions for Robotic Hernia Surgery
The incision sites are sealed with a surgical glue dressing.� It is safe to shower at any time after surgery when the glue is dry.� Let shower water run over the incisions and then pat dry, no topicals or additional dressings are needed.
Glue dressing typically peels off in 2-3 weeks.
If provided, wear abdominal binder for support and comfort. May leave off if bothersome.
Regular as tolerated but recommended Smaller portions for meals as bloating and distention are common post op for the first few days (2-5 days) until bowels are moving again.
Resume all preoperative medications as prescribed, unless directed otherwise.
Do not drive or drink alcohol for 24hrs after having anesthesia or while taking narcotic pain medications.
May resume regular daily light activities, such as walking and going up/down stairs as tolerated within 24hrs of surgery.� However, please refrain from lifting over 20lbs or strenuous exercise for approximately 6 weeks or as advised at
postoperative follow up.�
Abdominal wall pain/discomfort, bloating, mild nausea, as well as bruising/stiffness or swelling at the incision sites and hernia repair region are common after surgery, if felt to be excessive please notify us.
Constipation is common following surgery and postoperative narcotic use.� May use a stool softener to help prevent constipation
If no BM 24hrs after surgery, recommend starting Miralax
If no BM in 48-72hrs after starting Miralax --> recommend then using a dose of magnesium citrate or milk of magnesia with a Senokot tablet to help alleviate post operative constipation as long as no nausea/vomiting and passing gas.
Please call the office to schedule your postoperative follow-up office visit if not arranged prior to surgery.
Call the office with a fever above 101� F, nausea with vomiting, severe abdominal pain, spreading redness and drainage from incision sites or any concerns/questions.
Referrals:
Abad Chung Jr., DO [Family Provider, Family Practice] - in less than 1 week
Darinel Herrera MD [Active, Surgical] - in two to four weeks
Prescriptions:
New
tamsulosin 0.4 mg capsule
0.4 mg PO HS Qty: 30 0RF
carvedilol 3.125 mg Tablet
3.125 mg PO BID Qty: 60 0RF
pantoprazole 40 mg Tablet,Delayed Release (Dr/Ec)
40 mg PO DAILY Qty: 30 0RF
prednisone 10 mg Tablet
See Rx Instructions .ROUTE .COMPLEX Qty: 10 0RF
Rx Instructions:
Take By Mouth:
40 mg daily x1 days, 30 mg daily x1 days,
20 mg daily x1 days, 10 mg daily x1 days.
Continued
cilostazol 100 mg Tablet
100 mg PO BID
amlodipine [Norvasc] 5 mg Tablet
5 mg PO DAILY
sertraline 25 mg Tablet
25 mg PO HS
Refresh Optive 0.5-0.9 % Drops
1 drp BOTH EYES TID
Rx Instructions:
prn
Trelegy Ellipta 100-62.5-25 mcg Blister With Device
1 inh INHALATION R DAILY
dapagliflozin propanediol 10 mg Tablet
10 mg PO DAILY Qty: 30 0RF
aspirin 81 mg Tablet
81 mg PO DAILY
bumetanide 2 mg Tablet
2 mg PO BID@0800,1600 Qty: 60 0RF
Rx Instructions:
1 and 1/2 tabs in am (3mg), 2mg in pm
Changed
hydralazine 25 mg tablet
37.5 mg PO BID Qty: 0 0RF
Discontinued
omeprazole 20 mg Tablet,Delayed Release (Dr/Ec)
20 mg PO DAILY
carvedilol 12.5 mg Tablet
12.5 mg PO BID Qty: 60 0RF
spironolactone 25 mg tablet
12.5 mg PO Q48H
Discharge Orders:
Discharge Patient (As Directed); Ordered 06/30/25
Ordered By: Eboni Wilson
Discharge Date and Time
Discharge Date/Time: 06/30/25 14:40
Print Language: MONTENEGRIN
--- NOTE | 2025-06-30 17:11 | W.PN.HOSP.TC ---
Today's Communication/Plan
-
d/c
Assessment / Plan
Assessment / Plan
pt was actually cleared for d/c yesterday 06/29 BUT developed rash on back and d/c was held.
A 85-year-old male with a past medical history of CHF, nephrotic syndrome, CKD, hypertension and COPD who presented with progressive shortness of breath and leg swelling.� Patient got a kidney biopsy done 2 days ago at [facility], and has had
progressive leg swelling with shortness of breath, orthopnea and abdominal distention.� Per , normally his weight is 166 lbs, but it was 177 lbs this morning. Renal biopsy from 06/17/2025 revealed membran[address] neph[address].
CT abdomen/pelvis: Fat-containing left inguinal hernia with mild fluid. This can be seen with developing incarceration/strangulation. Small bilateral loculated pleural effusions. This corresponds to the recent right lung radiographic finding.
Possible left renal soft tissue mass. Nonurgent dedicated CT of the kidneys pre- and post-IV contrast or MRI examination recommended. Tiny pericardial effusion versus pericardial thickening. Findings consistent with prior benign granulomatous
disease. A couple too small to characterize hypodense hepatic lesions likely small cysts or hemangiomas. Bilateral too small to characterize hypodense renal lesions likely benign cysts. A couple hyperdense subcentimeter left renal lesions likely
benign proteinaceous cysts is mild fecal material in colon.
Bilateral lower extremity ultrasound: No sonographic evidence for lower extremity venous thrombosis.
Assessment/Plan:
# Nephrotic syndrome with membranous nephropathy
# Acute kidney injury
Renal biopsy from 06/17/2025 revealed membranous nephropathy with anti�PLA2R antibody negative, which may suggest a secondary variant of membranous nephropathy.� Secondary variant of membranous nephropathy can be attributed to underlying malignancies.
CT abdomen/pelvis as above.
� consulted and following. Hold bumetanide. Was diuresed using IV Lasix 80 Mg 3 TID, and amiloride was added and likely thought was cause of rash. Bumex restarted at d/c as per renal. Spironolactone discontinued 06/23/25.
� Creatinine 06/25/2025 1.7, increased to 2.2 on 06/27/2025-indicating ROLANDA. Diuretics held.
� Acute viral hepatitis panel (B/C)- NEGATIVE.
� SPEP: Restricted band of protein migration in the gamma region which is too small to quantify. BEA gel shows a faint band in IgG kappa which may be indicative of a specific immune response or an early monoclonal protein.
� Deweese lambda ratio 1.3, immunoglobulins normal, cryoglobulin negative.
� Bilateral duplex venous ultrasound ordered due to risk of hypercoagulability from nephrotic syndrome- NEGATIVE
� PSA negative, low prostate cancer probability.
# Maculopapular rash -may be due to contact dermatitis
- Patient having a maculopapular rash for the past day. Given Benadryl IV, which only provided temporary relief. Will give prednisone taper at d/c.
- Nephrology recs discontinuing amiloride at this time. Given solumedrol 40 mg IV.
# Hyperkalemia
# Hyponatremia
- Patient's hyperkalemia has been managed by Kayexalate 15 g as needed. K today 06/28/2025 is 5.1.
- Na 133 on 06/25/25, now 06/28/2025 Na 135.
- Will trend BMP
# Left inguinal hernia
# Leukocytosis�likely reactive
CT as above: possible developing incarceration/strangulation of left inguinal hernia.
�Laparoscopic robotic assisted transabdominal preperitoneal repair left inguinal and spigelian hernia with mesh; 3D max extra-large mid weight on 06/26/25 for hernial repair. Surgery following.
�Surgery recommends continuing diet as tolerated, analgesic as needed, continue Rey-start tamsulosin 0.4 mg and follow-up for voiding trial later this admission. Continue Lovenox -renal dosed.
�WBC count 11.6 06/27/2025. Decreased to 9.1 on 06/28/2025. Will continue to trend CBC.
# Chest pain likely due to GERD- resolved
# GERD
EKG 06/24/25 showed sinus bradycardia and low voltage.
- Patient had an episode of chest pressure and 'sour taste' overnight 06/23/25, which was relieved after tums, IV Protonix and IV Dilaudid 0.25 mg.
- Continue Protonix 40 mg PO daily.
# Acute diastolic CHF exacerbation
Echo April 2025 showed preserved ejection fraction
EKG showed normal sinus rhythm with no acute ischemic change
Troponin 0.015, no chest pain
�Cardiology consulted.� Continue beta vicky, Aldactone, Farxiga.� Cardiology signed off 06/23/2025.
�Follow daily weights, I&Os.
-Continue sodium restricted diet.
# Right lung base opacity
CXR revealed well marginated opacity within the right lung base measuring 6.1 x 5.4 cm which may represent a pneumonia with a developing abscess.� This could also represent loculated fluid within the fissure.� Mild thickening of the right minor
fissure.� Diffusely increased interstitial opacities bilaterally.
- CT chest with IV contrast: small bilateral loculated pleural effusions.
�Patient asymptomatic, will continue to monitor to see if intervention is needed.
#COPD
#Hypoxia
- O2 06/29/25 93% on room air. Monitor.
- Continue Spiriva, Symbicort.
#Bradycardia
- Carvedilol dose was decreased from 6.25 mg to 3.125 PO BID.
- Heart rate 57 today 06/28/25. Continue Carvedilol 3.125 mg PO BID.�
- Monitor heart rate.
# Hypertension
-Continue Norvasc/Aldactone/Hydralazine/Coreg
# Depression
-Continue Zoloft
DVT prophylaxis: Lovenox�
Full code
Anticipated Discharge: Today
Subjective/Interval History
-
Date of Service: June 30, 2025
pt waiting to be discharged
Objective Data
-
Labs:
Laboratory Results
06/30/25
07:43
WBC 11.1 H
Hgb 11.7 L
Hct 36.1 L
Plt Count 183
Sodium 131 L
Potassium 5.6 H
Chloride 99
Carbon Dioxide 31 H
BUN 86 H
Creatinine 1.8 H
Glucose 106 H
Calcium 8.4
Total Bilirubin 0.4
AST 40
ALT 26
Alkaline Phosphatase 109
Vital Signs:
Vital Signs
Temp Pulse Resp BP Pulse Ox
97.6 F 57 16 152/65 96
06/30/25 11:25 06/30/25 11:25 06/30/25 11:25 06/30/25 11:25 06/30/25 11:25
I&O
06/29/25 06/30/25 07/01/25
06:59 06:59 06:59
Intake Total 1680 / 1680 2420 / 2420
Output Total 1100 / 1100
Balance 580 / 580 2420 / 2420
Review of Systems
-
All other systems: Reviewed and negative
Physical Exam
-
General: Well Developed, Well Nourished and No Apparent Distress
HEENT: Normocephalic and Atraumatic; Negative Oxygen
Respiratory: Clear to Auscultation; Negative Wheezes or Rhonchi
Cardiac: Regular Rhythm and S1/S2; Negative Murmur
GI: Soft, Nontender, Nondistended and Normal Bowel Sounds
Musculoskeletal: No Clubbing, No Cyanosis and No Edema
Skin: Rash (Maculopapular rash on back)
Neuro: Awake
Psych: Calm
== END 2025-06-30 14:40 | disposition home health service (06) | DRG 981 ==
LOC: 2 NORTH 14:43
PROVIDERS: ADMITTING PHYSICIAN Internal Medicine; CONSULT PHYSICIAN Internal Medicine Cardiovascular Disease; CONSULT PHYSICIAN Surgery; EMERGENCY PHYSICIAN Emergency Medicine; FAMILY PHYSICIAN Family Medicine; OTHER PHYSICIAN Specialist
PROC: 8E0W4CZ Robotic Assisted Procedure of Trunk Region, Percutaneous Endoscopic Approach (ICD-10-PCS; 2025-06-26)
PROC: 0YU64JZ Supplement Left Inguinal Region with Synthetic Substitute, Percutaneous Endoscopic Approach (ICD-10-PCS; 2025-06-26)
PROC: 0WQF4ZZ Repair Abdominal Wall, Percutaneous Endoscopic Approach (ICD-10-PCS; 2025-06-26)
DX: I13.0 Hypertensive heart and chronic kidney disease with heart failure and stage 1 through stage 4 chronic kidney disease, or unspecified chronic kidney disease (principal); I50.33 Acute on chronic diastolic (congestive) heart failure; J96.01 Acute respiratory failure with hypoxia; K40.31 Unilateral inguinal hernia, with obstruction, without gangrene, recurrent; J84.9 Interstitial pulmonary disease, unspecified; Z16.24 Resistance to multiple antibiotics; E87.1 Hypo-osmolality and hyponatremia; N17.9 Acute kidney failure, unspecified; N04.2 Nephrotic syndrome with diffuse membranous glomerulonephritis; N18.32 Chronic kidney disease, stage 3b; E78.5 Hyperlipidemia, unspecified; J44.9 Chronic obstructive pulmonary disease, unspecified; I73.9 Peripheral vascular disease, unspecified; K43.9 Ventral hernia without obstruction or gangrene; F32.A Depression, unspecified; K21.9 Gastro-esophageal reflux disease without esophagitis; E87.5 Hyperkalemia; I27.20 Pulmonary hypertension, unspecified; R21 Rash and other nonspecific skin eruption; I34.0 Nonrheumatic mitral (valve) insufficiency; D64.9 Anemia, unspecified; E88.09 Other disorders of plasma-protein metabolism, not elsewhere classified; N28.1 Cyst of kidney, acquired; Z79.82 Long term (current) use of aspirin; Z99.81 Dependence on supplemental oxygen; Z87.891 Personal history of nicotine dependence
CPT/HCPCS: 36415; 50200; 71046; 71250; 74176; 76942; 80048; 80053; 82595; 82784; 83521; 83735; 83880; 84153; 84155; 84165; 84484; 85014; 85018; 85025; 85610; 86334; 86704; 86706; 86803; 87340; 88305; 93005; 93970; 94640; 96374; 97116; 97162; 97166; 99152; 99153; 99285; C1781

== ENCOUNTER 2025-07-16 19:22 | Inpatient (IN) | payer MEDICARE, SELFPAY ==
[2025-07-16 14:22] VITALS: BMI 27.4
[2025-07-16 14:28] VITALS: BP 181/83
--- NOTE | 2025-07-16 14:51 | ED.GENMED ---
History of Present Illness
General
Chief Complaint: Abdominal Pain
Source: patient
Exam Limitations: none
Time Seen by Provider: 07/16/25 14:36
Nursing documentation reviewed up to this point in time: agreed with
History of Present Illness
History of Present Illness:
Patient is a 85-year-old male past medical history of CHF with preserved ejection fraction, chronic kidney disease hypertension hyperlipidemia dementia recent transabdominal peritoneal repair of left inguinal hernia with mesh presents to the ER for
evaluation. For the past week patient complains of increasing abdominal bloating. When he takes a deep breath he feels discomfort. He denies any actual pain. He feels pressure. He denies any associated fever chills diarrhea constipation. In
addition patient reports he has had increased lower extremity swelling and weight gain. Patient also complains of headache for the past 3 days.
Patient was seen by visiting nurse today and patient was sent for evaluation of headache abdominal discomfort and swelling of his legs.
He denies any associated fever chills recent URI symptoms.
Patient was recently admitted June 20 discharged June 30 for CHF related to nephrotic syndrome. At that time he did have transabdominal peritoneal repair of left hernia. Patient is taking his bumetanide 2 mg twice daily.
It is documented patient's creatinine baseline is 1.7
Patient did have a rash while also in the hospital and was discharged on a steroid taper at that time.
Past History
Past History
ED Past Medical History: CHF and HTN
ED Past Surgical History: None
Social History
Tobacco: Non-smoker
Alcohol: None
Drug: None
Living: with family
Employment: Retired
Phy Exam
General Physical Exam
General Presentation: no apparent distress
General age: appears stated age
General Skin: warm and dry
General Habitus: elderly
General Mental: alert
General Hydration: appears well hydrated
Cardiovascular Exam
Cardiovascular Exam: no murmur, normal peripheral pulses and bradycardia
Pulmonary Exam
Pulmonary Exam: no respiratory distress and other (Crackles at bases)
Neurological Exam
Neurological Exam: alert, oriented x3, no motor deficits and no sensory deficits
Musculoskeletal Exam
Musculoskeletal Exam: other (+ b/l l/e swelling )
Skin Exam
Skin Exam: normal color and warm/dry
Psychiatric Exam
Psychiatric Exam: normal mood/affect
Course
Orders/Labs/Results
Orders:
Orders
07/16/25 15:14
CT Head W/o Iv Contrast Urgent
Comment:
Reason For Exam: headache
07/16/25 15:15
IV Insert/Care/Rem.- Treatment PRN
07/16/25 15:16
Electrocardiogram (*1) Stat
Reason for Study: Other
Other Reason for Exam: chest pain
Cardiac Monitoring- Treatment ONCE
EKG- Treatment ONCE
07/16/25 15:36
Chest [CR Chest - 2 Views ] Urgent
Comment:
Reason For Exam: volume overload
07/16/25 15:56
Complete Blood Count/With Diff Urgent
Comprehensive Metabolic Panel Urgent
NT-proBNP Urgent
Troponin I Urgent
07/16/25 16:56
CT Abd/pel Without Iv Or Oral Urgent
Comment:
Reason For Exam: abd pain s/p hernia repair kidney disease
07/16/25 17:13
Add On- LAB Urgent
Tests Added?: ionized calcium
Abnormal Lab Results
07/16/25
15:56
RBC 4.12 L 10^6/uL
(4.70-6.10)
Hgb 11.3 L g/dL
(13.0-18.0)
Hct 34.7 L %
(39.0-52.0)
MCHC 32.6 L g/dL
(33.0-37.0)
RDW 15.0 H %
(11.5-14.5)
Absolute Monos (auto) 0.8 H 10^3/uL
(0.1-0.6)
Monocytes % 11.0 H %
(1.7-9.3)
Chloride 112 H mmol/L
(98-107)
BUN 51 H mg/dl
(9-20)
Creatinine 1.7 H mg/dL
(0.7-1.3)
Glucose 121 H mg/dl
(70-99)
Calcium 7.6 L mg/dl
(8.4-10.2)
Total Protein 4.5 L g/dl
(6.3-8.2)
Albumin 1.9 L g/dl
(3.5-5.0)
07/16/25 15:56
07/16/25 15:56
Vital Signs
Initial and Last Documented VS:
Initial Vital Signs
Temp Pulse Resp Pulse Ox
97.5 F 59 18 95
07/16/25 14:26 07/16/25 14:26 07/16/25 14:26 07/16/25 14:26
Last Documented Vital Signs
Temp Pulse Resp BP Pulse Ox
97.5 F 58 20 201/86 95
07/16/25 14:26 07/16/25 17:45 07/16/25 17:45 07/16/25 17:30 07/16/25 17:45
MDM/Problems Addressed
Differential Diagnosis Includes:
Not limited to CHF, intracranial hemorrhage, headache, internal abdominal bleeding constipation bowel obstruction
MDM/Problems Addressed:
As documented patient is an 85-year-old male with history of heart failure, recent hernia repair who presents to the ER complaining of abdominal bloating and pressure and increased lower extremity swelling. He was sent by visiting nurse. He denies
any shortness of breath. His weight from June 30 with 72.5 kg and weight today has increased to 84 kg he has obvious bilateral lower extremity swelling his BNP is elevated to 7720 he does have a history of nephrotic syndrome. His renal function
is elevated but baseline his creatinine is 1.7 his calcium was found to be low at 7.6.. Chest x-ray does show increased pulmonary vascularity. will need diuresis.
case d/c w/ DR Palencia albumin is low will check ionized calcium
*Radiology
Radiology exam reviewed: radiology read reviewed
*Pulse Oximetry
SaO2: 95
Oxygen Mode of Delivery: Room air
Patient hypoxic: no
*EKG
Interpreted by ED Provider?: Yes
Heart Rate: 58
Rate: bradycardiac
Rhythm: sinus
Ischemia: no ischemia
*Critical Care Note
Total Time (30-74mins, 75-104mins- exclusive of procedures): Not Applicable
Data Reviewed
Review of Other/Old Records Reveals: Labs, Operative Reports and Discharge Summary
Source: patient and family
Patient Management
Discussion with other providers: Striker Out (Nephrology Dr. Palencia )
ED Attending Note
-
Portions of this chart may have been created with voice recognition software.� Occasional wrong word or��sound alike� substitutions may have occurred due to the inherent limitations of voice recognition software.
Discharge Plan
Departure
Patient Disposition: Admit
Date of Disposition: 07/16/25
Time of Disposition: 18:22
Admit to: Telemetry
Admit to doctor: hospitalist
Presentation/result/management discussed w/ accepting MD/DO: Hospitalist
Patient with high blood pressure during this ER visit?: Yes
Condition: Fair
Covid-19: Not Applicable
Discharge Problem:
CHF (congestive heart failure), elevated blood pressurre
Prescriptions:
No Action
cilostazol 100 mg Tablet
100 mg PO BID
amlodipine [Norvasc] 5 mg Tablet
5 mg PO DAILY
sertraline 25 mg Tablet
25 mg PO HS
Refresh Optive 0.5-0.9 % Drops
1 drp BOTH EYES TID
Rx Instructions:
prn
Trelegy Ellipta 100-62.5-25 mcg Blister With Device
1 inh INHALATION R DAILY
dapagliflozin propanediol 10 mg Tablet
10 mg PO DAILY Qty: 30 0RF
aspirin 81 mg Tablet
81 mg PO DAILY
tamsulosin 0.4 mg capsule
0.4 mg PO HS Qty: 30 0RF
carvedilol 3.125 mg Tablet
3.125 mg PO BID Qty: 60 0RF
pantoprazole 40 mg Tablet,Delayed Release (Dr/Ec)
40 mg PO DAILY Qty: 30 0RF
hydralazine 25 mg tablet
37.5 mg PO BID Qty: 0 0RF
prednisone 10 mg Tablet
See Rx Instructions .ROUTE .COMPLEX Qty: 10 0RF
Rx Instructions:
Take By Mouth:
40 mg daily x1 days, 30 mg daily x1 days,
20 mg daily x1 days, 10 mg daily x1 days.
bumetanide 2 mg Tablet
2 mg PO BID@0800,1600 Qty: 60 0RF
Rx Instructions:
1 and 1/2 tabs in am (3mg), 2mg in pm
Referrals:
UNKNOWN - PT DOES,NOT KNOW [Family Provider]
Interventions
Interventions:
*Risk Screen - Suicide Last Done: 07/16/25 17:52
*General Assessment Last Done: 07/16/25 17:52
*Neglect/Abuse Screening Last Done: 07/16/25 17:52
*ED- Fall Risk Assessment Last Done: 07/16/25 17:52
*ED COVID-19 Vaccine History Last Done: 07/16/25 17:52
XF-Pgiajc-Dyeulvttef Assessment Last Done: 07/16/25 17:52
Discharge Date and Time
Print Language: RWANDAN
[2025-07-16 16:17] LABS: Hematocrit 34.7 % (39.0-52.0); Hemoglobin 11.3 g/dL (13.0-18.0); Mean Corp Hgb Conc. 32.6 g/dL (33.0-37.0); Mean Corpuscular Volume 84.2 fL (80.0-94.0); Nucleated Red Blood Cells % 0 % (-); Platelet Count 132 10^3/uL (130-400); Red Cell Dist. Width 15.0 % (11.5-14.5)
[2025-07-16 16:21] LABS: ALT (SGPT) 13 U/L (0-50); AST (SGOT) 23 U/L (17-59); Albumin 1.9 g/dl (3.5-5.0); Alkaline Phosphatase 104 U/L (38-126); Blood Urea Nitrogen 51 mg/dl (9-20); Calcium 7.6 mg/dl (8.4-10.2); Carbon Dioxide 27 mmol/L (22-30); Chloride 112 mmol/L (98-107); Estimated Creatinine Clearance 33 ml/min; Glucose 121 mg/dl (70-99); Potassium 4.0 mmol/L (3.5-5.1); Sodium 139 mmol/L (135-145); Total Protein 4.5 g/dl (6.3-8.2); eGFR 39.51
[2025-07-16 16:32] LABS: Troponin I 0.032 ng/ml
[2025-07-16 17:30] VITALS: BP 201/86
[2025-07-16 18:00] VITALS: BP 204/80
[2025-07-16] MEDS: LASIX 40 MG IV (18:14)
[2025-07-16] MEDS: COREG 3.125 MG PO (18:36)
[2025-07-16] MEDS: APRESOLINE 37.5 MG PO (18:36)
--- NOTE | 2025-07-16 18:52 | HPS.HSE ---
Family Physician
-
Family Physician: NOT KNOW UNKNOWN - PT DOES
Chief Complaint
-
chest pressure
History of Present Illness
85-year-old male past medical history of HFpEF, CKD, membranous nephropathy hypertension, hyperlipidemia, dementia, transabdominal peritoneal repair of left inguinal hernia with mesh presenting with chest pressure across his upper chest which is
worse with bending or breathing ongoing for few days. He has had 10 pound weight gain since his recent admission. He has had increased lower extremity swelling. His blood pressure was as high as 200 today associated with headache. Has nausea
without vomiting. Denies shortness of breath.
Denies any upper respiratory symptoms.
He was recently admitted from June 20 to June 30 for heart failure secondary to nephrotic syndrome with membranous nephropathy. At that time he had transabdominal peritoneal repair left hernia. He also had a rash attributed to amilioride
treated with steroids.
He denies smoking or alcohol use.
Medical History
Past Medical History
Past Medical History: Reports Other (HFpEF, CKD, membranous nephropathy hypertension, hyperlipidemia, dementia, transabdominal peritoneal repair of left inguinal hernia with mesh)
Past Surgical History: Reports None
Social History
Tobacco: Non-smoker
Alcohol: None
Drug: None
Family History
Family History: Not pertinent
Allergies / Home Medications
Allergies reflects when Allergies were last updated in [employer].
Home Medications with original date entered in [employer]
Allergy/Medication List:
Allergies
Allergy/AdvReac Type Severity Reaction Status Date / Time
No Known Allergies Allergy Verified 06/20/25 10:35
Home Medications
amlodipine 5 mg tablet (Norvasc) 5 mg PO DAILY Blood Pressure 10/31/24
carboxymethylcellulose 0.5 %-glycerin 0.9 % eye drops (Refresh Optive) 1 drp BOTH EYES TID Eye Condition 10/31/24
cilostazol 100 mg tablet 100 mg PO BID Blood Clot Prevention/Tx 10/31/24
fluticasone fur. 100 mcg-umeclid 62.5 mcg-vilant 25 mcg inhalat.powder (Trelegy Ellipta) 1 inh inhalation R DAILY Lung/Breathing Issues 10/31/24
sertraline 25 mg tablet 25 mg PO HS Depression 10/31/24
dapagliflozin propanediol 10 mg tablet 10 mg PO DAILY #30 tabs 11/27/24
aspirin 81 mg tablet 81 mg PO DAILY 06/16/25
tamsulosin 0.4 mg capsule 0.4 mg PO HS Urinary issue #30 caps 06/28/25
carvedilol 3.125 mg tablet 3.125 mg PO BID Blood pressure #60 tabs 06/29/25
hydralazine 25 mg tablet 37.5 mg (1.5 x 25 mg) PO BID Blood pressure #0 tabs 06/29/25
pantoprazole 40 mg tablet,delayed release 40 mg PO DAILY Gastrointestinal issue #30 tabs 06/29/25
bumetanide 2 mg tablet 2 mg PO BID@0800,1600 Fluid retention/Swelling #60 tabs 06/30/25
prednisone 10 mg tablet See Rx Instructions .Route .COMPLEX rash #10 tabs 06/30/25
Review of Systems
-
Constitutional: Reports No Symptoms
EENT: Reports No Symptoms
Respiratory: Reports See HPI
Cardiac: Reports See HPI
Abdomen/GI: Reports No Symptoms
: Reports No Symptoms
Musculoskeletal: Reports No Symptoms
Skin: Reports No Symptoms
Neurological: Reports No Symptoms
Endocrine: Reports No Symptoms
Hematologic/Lymphatic: Reports No Symptoms
Psych: Reports No Symptoms
Physical Exam
Vital Signs
Vital Signs
Temp Pulse Resp BP Pulse Ox
97.5 F 61 17 204/80 96
07/16/25 14:26 07/16/25 18:36 07/16/25 18:30 07/16/25 18:36 07/16/25 18:30
Physical Exam
General: Well Developed, Well Nourished and No Apparent Distress
HEENT: NormoCephalic, Moist mucous membranes and Atraumatic
Respiratory: Clear
Cardiac: S1/S2 and Regular Rhythm; No Murmur or Rub
GI: Soft, Non Tender, Non Distended and Normal Bowel Sounds; No Organomegaly
Rectal: Deferred by Provider
Musculoskeletal: No Clubbing, No Cyanosis and No Edema
Skin: No Rash
Neuro: Nonfocal/grossly intact
Laboratory Results
-
07/16/25 15:56
07/16/25 15:56
Laboratory Results
Total Bilirubin 0.2 mg/dl (0.2-1.3) 07/16/25 15:
AST 23 U/L (17-59) 07/16/25 15:56
ALT 13 U/L (0-50) 07/16/25 15:56
Alkaline Phosphatase 104 U/L (38-126) 07/16/25 15:56
Troponin I 0.032 ng/ml 07/16/25 15:56
Data Reviewed
-
Lab Data: Labs Reviewed by me
Old Records: Reviewed
Impression/Plan
-
IMPRESSION:
PLAN:
# Fluid retention secondary to worsening hypoalbuminemia/pulmonary vascular congestion secondary to nephrotic syndrome/membranous nephropathy
- Albumin level of 1.9 from 2.5
-Cardiac BNP of 7700 from 5500 on 06/20
-Chest x-ray shows rounded opacity in the lower lateral right lung likely loculated fissural fluid without significant change, increased pulmonary vascularity cannot differentiate acute versus chronic
- CT abdomen pelvis shows some at least relative thickening of the wall of the stomach, few scattered highly attenuation renal lesions likely hypertensive but cannot exclude solid masses, small bilateral pleural effusion slightly decreased on the
right
- Check I's and O's, daily weight
- 40 IV Lasix given
- Increase Bumex from 2 mg twice daily to 3 mg twice daily
# Upper chest pain unclear
-tender to palpation
- CT abdomen pelvis does not show any explanation for the pain think this is likely due to fluid retention
-Considering PE but not hypoxic and no shortness of breath or tachycardia, and difficult with Renal Impairment
- Monitor with blood pressure control and diuresis
# Hypertensive urgency with associated headache secondary to membranous nephropathy
# History of essential hypertension
- Blood pressure up to 204/80
- Continue amlodipine, Coreg
- As needed hydralazine
# Possible hypocalcemia
-Calcium 7.6 however albumin 1.9
- Ionized calcium pending
Chronic HFpEF
- Continue dapagliflozin
CKD/biopsy-proven membranous nephropathy
- Creatinine 1.7 which has been stable
Hyperlipidemia
Dementia
Transabdominal peritoneal repair of left inguinal hernia with mesh
-incision sites healing well
Anxiety/depression
- Continue sertraline
GERD
- Continue Protonix
BPH
- Continue tamsulosin
Full code
DVT prophylaxis�heparin
Regular diet
[2025-07-16 19:00] VITALS: BP 195/86
[2025-07-16 21:00] VITALS: BMI 26.8
[2025-07-16] MEDS: BUMEX 3 MG IV (21:42)
[2025-07-16] MEDS: HEPARIN 5000 UNITS SC (21:43)
[2025-07-16 22:06] VITALS: BMI 26.8
[2025-07-16 23:00] VITALS: BP 163/78
--- NOTE | 2025-07-16 23:02 | PTCARENOTE ---
Pt admitted to rm 318-2 and walked from stretcher to bed w/ steady gait. Pt aaox3, no c/o pain, and visibly MUNOZ. Pt denies being SOB. 96% on RA. BP 190/90 HR 65. Ordered IV bumex given (see MAR). Pt placed on tele #19, NSR w/ PACs and PVCs and
occasionally monitor alarming HR in 140-150s. Pt asymptomatic. EKG Sinus rhythm w/ PACs. . MEDIA ANALYTICS MANAGER notified, urgent BMP and mag ordered and sent to lab. BP 163/78. Pt's call [facility] within reach and plan of care ongoing.
[2025-07-16 23:22] LABS: Blood Urea Nitrogen 52 mg/dl (9-20); Calcium 7.8 mg/dl (8.4-10.2); Carbon Dioxide 27 mmol/L (22-30); Chloride 111 mmol/L (98-107); Estimated Creatinine Clearance 35 ml/min; Glucose 89 mg/dl (70-99); Magnesium 1.9 mg/dl (1.6-2.3); Potassium 3.8 mmol/L (3.5-5.1); Sodium 137 mmol/L (135-145); eGFR 42.49
[2025-07-17] VITALS (11 sets, daily range): BP systolic 141–178; BP diastolic 68–112; PULSE 53–57; O2SAT 94–95; BMI 26.6
[2025-07-17] MEDS: LOPRESSOR 5 MG IV (00:32)
--- NOTE | 2025-07-17 00:51 | W.PN.UPDATE ---
Update Note
Progress Note Update
New onset of a-fib hr in 130s, bp 169/112, afebrile. asymptomatic.
-EKG, bmp and mag ordered
-One time ordered of IV Lopressor 5mg, hr still in 130s.
-5mg of IV Cardizem and drip started
-cardiology consult placed
-Around 5 am the patient had some pauses while on Cardizem up to 4.2 sec. Asymptomatic. Will hold Cardizem.
[2025-07-17] MEDS: CARDIZEM 5 MG IV (01:40)
--- NOTE | 2025-07-17 01:52 | PTCARENOTE ---
Addendum entered by Naomi Mcgrath RN 07/17/25 07:20:
correction, instructed to increase cardizem gtt to 10mg/HR at 0400
Addendum entered by Naomi cMgrath RN 07/17/25 05:51:
Around 0240, pt's HR still sustaining in 120-130s. Afib on monitor. TEA AND SPICE SUPERVISOR notified, Cardizem gtt ordered to start at 5mg/hr.
at 0354, TEA AND SPICE SUPERVISOR notified pt's Hr still sustaining in 130s. Instructed to increase gtt at 0440 to 10mg/HR. BP 150/101.
around 0512, tele alarmed pt asystole. 4.2 second pause noted, Cardizem gtt stopped by RN. HR back up to 130s. Pt asymptomatic. BP 145/95. TEA AND SPICE SUPERVISOR notified, instructed to keep gtt on hold.
Tele monitor alarmed HR in 20s and then back up to 50s. 2.93 second (tele strips in pt chart) pause noted. Tele showing pt in NSR. Pt asymptomatic. TEA AND SPICE SUPERVISOR notified.
Cardiology consult ordered.
Original Note:
around 0015, tele alarming pt's HR sustaining in 130s. EKG obtained, showing pt in Afib w/ RVR. Pt asymptomatic. BP 169/112. TEA AND SPICE SUPERVISOR notified, Lopressor 5mg ordered and given (see MAR).
Pt's HR still sustaining in 120-130s, pt asymptomatic. BP 161/108, temp 98.4, 94% RA. TEA AND SPICE SUPERVISOR notified, Cardizem 5mg IV ordered (see MAR). TEA AND SPICE SUPERVISOR asked RN to bladder scan pt. Bladder scan 215mls. Pt voiding in urinal, 800mls of clear yellow urine out
since admission.
[2025-07-17] MEDS: CARDIZEM 125 IV (02:48)
[2025-07-17] MEDS: BUMEX 3 MG IV ×2 (07:42→16:33)
[2025-07-17] MEDS: HEPARIN 5000 UNITS SC ×2 (07:45→20:10)
[2025-07-17] MEDS: COREG 3.125 MG PO ×2 (07:46→20:09)
[2025-07-17] MEDS: ASPIR LOW (ENTERIC COATED) 81 MG PO (07:46)
[2025-07-17] MEDS: FARXIGA 10 MG PO (07:46)
[2025-07-17] MEDS: NORVASC 5 MG PO (07:46)
[2025-07-17] MEDS: PROTONIX 40 MG PO (07:46)
[2025-07-17 07:55] LABS: Hematocrit 38.3 % (39.0-52.0); Hemoglobin 12.4 g/dL (13.0-18.0); Mean Corp Hgb Conc. 32.4 g/dL (33.0-37.0); Mean Corpuscular Volume 85.3 fL (80.0-94.0); Nucleated Red Blood Cells % 0 % (-); Platelet Count 160 10^3/uL (130-400); Red Cell Dist. Width 15.0 % (11.5-14.5)
[2025-07-17 08:56] LABS: ALT (SGPT) 13 U/L (0-50); AST (SGOT) 23 U/L (17-59); Albumin 2.0 g/dl (3.5-5.0); Alkaline Phosphatase 103 U/L (38-126); Blood Urea Nitrogen 46 mg/dl (9-20); Calcium 7.7 mg/dl (8.4-10.2); Carbon Dioxide 29 mmol/L (22-30); Chloride 109 mmol/L (98-107); Estimated Creatinine Clearance 31 ml/min; Glucose 94 mg/dl (70-99); Magnesium 1.9 mg/dl (1.6-2.3); Potassium 3.9 mmol/L (3.5-5.1); Sodium 138 mmol/L (135-145); Total Protein 4.7 g/dl (6.3-8.2); eGFR 36.89
--- NOTE | 2025-07-17 09:24 | CON.CAR ---
Addendum entered and electronically signed by See Santa DO 07/17/25 16:10:
I saw and examined the patient.
The Automotive Painter Helper's note was reviewed and I agree with the note.
Comment:
Plan:
Pt with known nephrotic syndrome and hypoalbuminemia with acute on chronic HFpEF
Continue IV Bumex diuresis with adjustment as per nephrology.
Potentially 20 lbs up from dry wt
Runs of atrial tach with pauses with IV Cardizem drip. Remains sinus. Increase Coreg for better rate control.
HPI: Patient came to the ER yesterday with weight gain and bloating and was admitted with recurrent volume overload in the setting of hypoalbuminemia and nephrotic syndrome, cardiology was consulted for rapid atrial arrhythmia. As you recall
patient has a history of biopsy-proven membranous nephropathy and is managed for nephrotic syndrome and hypoalbuminemia. He has had several admissions this year for IV diuresis and dry weight is 160 lbs, but weight on admission yesterday was 181
lbs. Patient reports compliance with Bumex 3 mg a.m. and 2 mg p.m. daily. Patient denies any dietary indiscretion. Patient reports increased urine output with Bumex 3 mg IV BID since admission, but his biggest complaint remains abdominal
distention and bloating. Patient also had hernia repair last admission, this was a second hernia repair and they used YAYA repair that time. Patient denies any chest pain or orthopnea. Cardiology was consulted for rapid atrial arrhythmia seen on
telemetry overnight. Patient denies any palpitations and reports he had no idea that his heart was out of rhythm. Patient was started on Cardizem gtt and then had up to 4.2-second conversion pause which he states he was also unaware of and denies
feeling lightheaded or dizzy.
Original Note:
Consultation
Consultation Request
Date/Time Consultation Requested: 07/17/2025 at 0541
Date/Time Consultation Performed: 07/17/2025 at 0830
Requesting Provider: Dr. Mac
Performing Provider: Dr. Santa
Reason for Consultation: Atrial arrhythmia with RVR
Medical History
-
History of Present Illness:
Patient came to the ER yesterday with weight gain and bloating and was admitted with recurrent volume overload in the setting of hypoalbuminemia and nephrotic syndrome, cardiology was consulted for rapid atrial arrhythmia. As you recall patient has
a history of biopsy-proven membranous nephropathy and is managed for nephrotic syndrome and hypoalbuminemia. He has had several admissions this year for IV diuresis and dry weight is 160 lbs, but weight on admission yesterday was 181 lbs. Patient
reports compliance with Bumex 3 mg a.m. and 2 mg p.m. daily. Patient denies any dietary indiscretion. Patient reports increased urine output with Bumex 3 mg IV BID since admission, but his biggest complaint remains abdominal distention and
bloating. Patient also had hernia repair last admission, this was a second hernia repair and they used YAYA repair that time. Patient denies any chest pain or orthopnea. Cardiology was consulted for rapid atrial arrhythmia seen on telemetry
overnight. Patient denies any palpitations and reports he had no idea that his heart was out of rhythm. Patient was started on Cardizem gtt and then had up to 4.2-second conversion pause which he states he was also unaware of and denies feeling
lightheaded or dizzy. He is now in SR on my review of telemetry.
PMH:
CKD 3B
PAT
PACs
Moderate MR
PAD, abnormal L IVAN, mod to severe claudication
HTN
HLD
GERD
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
Pulmonary hypertension
Past Medical History
Past Medical History: Other (In HPI)
Past Surgical History: Other (hernia repair 02/2025, recurrent left inguinal hernia YAYA repair)
Social History
Tobacco: Former Smoker
Alcohol: Occasional
Drug: None
Personal:
Living: With Family
Employment: Retired
Family History
Family History: Reviewed & Not Pertinent
Allergies / Home Medications
Allergy/AdvReac Type Severity Reaction Status Date / Time
No Known Allergies Allergy Verified 06/20/25 10:35
�Medication �Instructions �Recorded �Confirmed �Type
amlodipine 5 mg tablet (Norvasc) 5 mg PO DAILY Blood Pressure 10/31/24 07/16/25 History
carboxymethylcellulose 0.5 1 drp BOTH EYES TID Eye Condition 10/31/24 07/16/25 History
%-glycerin 0.9 % eye drops
(Refresh Optive)
sertraline 25 mg tablet 25 mg PO HS Depression 10/31/24 07/16/25 History
dapagliflozin propanediol 10 mg 10 mg PO DAILY #30 tabs 11/27/24 07/16/25 Rx
tablet
aspirin 81 mg tablet 81 mg PO DAILY 06/16/25 07/16/25 History
carvedilol 3.125 mg tablet 3.125 mg PO BID Blood pressure #60 06/29/25 07/16/25 Rx
tabs
hydralazine 25 mg tablet 37.5 mg (1.5 x 25 mg) PO BID Blood 06/29/25 07/16/25 Rx
pressure #0 tabs
pantoprazole 40 mg tablet,delayed 40 mg PO DAILY Gastrointestinal 06/29/25 07/16/25 Rx
release issue #30 tabs
acetaminophen 325 mg tablet 650 mg PO Q6HPRN PRN mild pain 07/16/25 07/16/25 History
(Tylenol)
bumetanide 2 mg tablet 2 mg PO QPM Fluid 07/16/25 07/16/25 History
retention/Swelling
bumetanide 2 mg tablet 3 mg PO DAILY 07/16/25 07/16/25 History
Review of Systems
-
History Source: Patient
All other systems: Negative unless noted
Physical Exam
Vital Signs
Temp Pulse Resp BP Pulse Ox
98.3 F 64 19 160/78 95
07/17/25 07:00 07/17/25 07:00 07/17/25 07:00 07/17/25 07:00 07/17/25 07:00
General: NAD. AAO x3
HEENT: EOMI, MMM
Skin: Warm, dry and pink. No rash
Heart: SR on tele. Reg, no murmurs
Lungs: CTA B/L. No wheeze or rales
Abd: Distended and mildly tender. Healing port incisions
Extremities: +2 pitting B/L LE edema. No clubbing, cyanosis or lesions B/L
Neuro: Grossly nonfocal
Lab Results
07/17/25 07:34
07/17/25 07:34
Troponin I 0.032 ng/ml 07/16/25 15:56
Sgf-Z-[id number] Pept 7720 pg/ml 07/16/25 15:56
Impression / Plan
-
PCP: Dr. Chung
Insurance Healthcare Consultant: Dr. Cinthya Nuñez
Impression:
Presented with SOB, weight gain, LE edema 07/16/2025
Acute hypervolemia due to hypoalbuminemia and nephrotic syndrome with biopsy-proven membranous nephropathy
CKD 3B
PAT with RVR and conversion pause 07/17/2025
4.2-second conversion pause seen on telemetry at 0512 on 07/17/2025
PACs
Moderate MR
PAD, abnormal L IVAN, mod to severe claudication
HTN
HLD
GERD
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
Pulmonary hypertension
Echo 04/10/2025: EF 63%, mild MR, trivial AR, mild to moderate TR, estimated PAP 48 to 51 mmHg, mild to moderate OH, trivial pericardial effusion
Plan:
-Patient came to the ER yesterday with weight gain and bloating and was admitted with recurrent volume overload in the setting of hypoalbuminemia and nephrotic syndrome, cardiology was consulted for rapid atrial arrhythmia. As you recall patient
has a history of biopsy-proven membranous nephropathy and is managed for nephrotic syndrome and hypoalbuminemia. He has had several admissions this year for IV diuresis and dry weight is 160 lbs, but weight on admission yesterday was 181 lbs.
Patient reports compliance with Bumex 3 mg a.m. and 2 mg p.m. daily. Patient denies any dietary indiscretion. Patient reports increased urine output with Bumex 3 mg IV BID since admission, but his biggest complaint remains abdominal distention and
bloating. Patient also had hernia repair last admission, this was a second hernia repair and they used YAYA repair that time. Patient denies any chest pain or orthopnea. Cardiology was consulted for rapid atrial arrhythmia seen on telemetry
overnight. Patient denies any palpitations and reports he had no idea that his heart was out of rhythm. Patient was started on Cardizem gtt and then had up to 4.2-second conversion pause which he states he was also unaware of and denies feeling
lightheaded or dizzy. He is now in SR on my review of telemetry.
-ECG reviewed by me is SR. Telemetry reviewed by me shows runs of PAT with conversion pauses up to 4.2 seconds.
-Patient with increased burden of PAT in the setting of volume overload. Agree with attempts at diuresis and will increase Coreg to 6.25 mg BID.
-Will continue to follow along on telemetry and if needed we can increase dose further or add alternative medication for improved rate control which should help reduce the risk of recurrent PAT and conversion pauses.
-There is no indication for OAC
-Weight is up 20 lbs from dry weight despite compliance with Bumex according to patient. Volume overload is related to nephrotic syndrome and hypoalbuminemia. Agree with nephrology consultation
-Nephrology office note from 05/08/2025 was reviewed by me and they were considering addition of metolazone therapy for more effective diuresis.
-Nephrology has also been considering another renal biopsy to see if patient may be amenable to immunotherapy
-Continue Coreg as is
-Outpatient dose of hydralazine 37.5 mg BID has been continued. BP this morning was 168/72 so could increase to 50 mg BID if needed.
-Outpatient dose of amlodipine 5 mg daily has been continued.
-Outpatient dose of Farxiga 10 mg daily has been continued
--- NOTE | 2025-07-17 10:32 | W.PN.HOSP.TC ---
Today's Communication/Plan
-
IV diuresis
follow Cards/Renal recs
V/Q scan
OT/OT
family updated
Assessment / Plan
Assessment / Plan
Assessment:
Acute volume overload in setting of hypoalbuminemia and nephrotic syndrome (membranous nephropathy)
CKD stage 3b (baseline Cr 1.7 to 1.9)
- Continue IV Bumex; requires intensive monitoring of I/Os, weights, lytes
- Nephrology consulted
New onset A. Fib
- s/p 1 dose IV Lopressor; then Cardizem drip but that was stopped due to conversion pauses
- continue oral beta vicky
- check TSH
- Echo 04/30: EF 63%, mildly enlarged RV, ZOHRA, mild MR, trivial AR, moderate TR, moderate PA
- Cards consulted
Upper chest/abdominal pain
- could be related to recent surgery vs other
- CT (no contrast) with relative thickening of the wall of the stomach; unclear etiology. continue PPI
- trop unremarkable
- higher risk VTE in setting of nephrotic syndrome, will V/Q scan (cannot CT-A due to CKD).
Hypertensive urgency in setting of volume overload/CKD
Essential HTN
- continue oral BP meds
- monitor BP
Hypocalcemia
- Albumin 2.0; correct Ca is >9
Acute on chronic HFpEF
- Diuretics as above
- GDMT: Coreg/Farxiga
Hyperlipidemia
Dementia, unknown subtype
Transabdominal peritoneal repair of left inguinal hernia with mesh
- incision sites healing well
- CT: subacute postoperative changes of the soft tissues of the left inguinal hernia from hernia repair with some likely inflammatory soft tissue stranding and small lymph nodes. No findings to confirm accompanying abnormal focal fluid collection
- OP GS f/u (Dr. Herrera)
Anxiety/depression
- continue sertraline
GERD
- continue Protonix
BPH
- continue tamsulosin
Bilateral renal masses seen on dry CT
- consider OP MRI for further evaluation
DVT ppx: SC heparin
Code: Full
Anticipated Discharge: > 48 hours
Subjective/Interval History
-
Date of Service: July 17, 2025
reports pain improving
less SOB
weight down 1-3 kg per scale
Objective Data
-
Labs:
Laboratory Results
07/16/25 07/17/25
22:56 07:34
WBC 7.3
Hgb 12.4 L
Hct 38.3 L
Plt Count 160 D
Sodium 137 138
Potassium 3.8 3.9
Chloride 111 H 109 H
Carbon Dioxide 27 29
BUN 52 H 46 H
Creatinine 1.6 H 1.8 H
Glucose 89 94
Calcium 7.8 L 7.7 L
Total Bilirubin 0.4
AST 23
ALT 13
Alkaline Phosphatase 103
Vital Signs:
Vital Signs
Temp Pulse Resp BP Pulse Ox
98.3 F 64 19 160/78 95
07/17/25 07:00 07/17/25 07:00 07/17/25 07:00 07/17/25 07:00 07/17/25 07:00
I&O
07/16/25 07/17/25 07/18/25
06:59 06:59 06:59
Intake Total 120 / 120
Output Total 1450 / 1450
Balance -1330 / -1330
Physical Exam
-
General: No Apparent Distress
HEENT: Normocephalic and Atraumatic
Respiratory: Clear to Auscultation; Negative Wheezes
Cardiac: Regular Rhythm and S1/S2
GI: Soft and Distended (slightly)
Musculoskeletal: Edema, Right Lower Extrem and Edema, Left Lower Extrem
Neuro: AO x 3
Psych: Calm
Data Reviewed
-
Total Time Spent with Patient (in minutes): 51
Labs: Labs Reviewed by me
[2025-07-17] MEDS: APRESOLINE 37.5 MG PO ×2 (11:55→20:09)
--- NOTE | 2025-07-17 15:13 | W.CON.NEPH ---
Consultation
-
Date/Time Consultation Requested: 07/16/252104
Date/Time Consultation Performed: 07/17/25 1015
Requesting Provider: Kevin Munoz
Performing Provider: Petrona Gray
Reason for Consultation: CKD and hypervolemia
Medical History
-
Chief Complaint: Congestive heart failure/membranous nephropathy/chronic kidney disease
History of Present Illness:
85-year-old male with PMHx of HLD, HTN (on amlodipine,carvedilol, hydralazine) ,DCHF maintained on Bumex, CKD 3b, membranous nephropathy plan to have first RTX on 07/25, nephrotic syndrome, dementia, transabdominal peritoneal repair of left
inguinal hernia with mesh presenting with chest pressure across his upper chest which is worse with bending or breathing ongoing for few days. He has had 10 pound weight gain since his recent admission in Jun. He has had increased lower extremity
swelling. His blood pressure was as high as 200 associated with headache. Has nausea without vomiting. With IV Bumex reports symptoms are improving and feels better. HIs out patient diuresis has not helped him to maintain CHF. He reports
compliant with diet and FR. No dysuria. No fever or cough or sob. Chest abd discomfort are better today. Edema is improving too. He also has new onset of AFib. ,
He was recently admitted from June 20 to June 30 for heart failure secondary to nephrotic syndrome with membranous nephropathy. At that time he had transabdominal peritoneal repair left hernia. He also had a rash attributed to amilioride
treated with steroids.
Past Medical History
Acute HFpEF
Nephrotic syndrome (newly diagnosed as membranous nephropathy by renal biopsy on 06/17/2025)
Atrial tachycardia
Moderate MR
CKD
PAD, abnormal L IVAN, mod to severe claudication
HTN
HLD
GERD
COPD/ILD: chronically O2 dependent
Moderate MR with pulmonary hypertension
CKD with creatinine of 1.6
Hernia
Anemia
Hypoalbuminemia
Social History
Tobacco: Non-Smoker
Alcohol: Occasional
Drug: None
Family History
no CKD
Family History: Not Pertinent
Allergies / Home Medications
Allergy/AdvReac Type Severity Reaction Status Date / Time
No Known Allergies Allergy Verified 06/20/25 10:35
�Medication �Instructions �Recorded �Confirmed �Type
amlodipine 5 mg tablet (Norvasc) 5 mg PO DAILY Blood Pressure 10/31/24 07/16/25 History
carboxymethylcellulose 0.5 1 drp BOTH EYES TID Eye Condition 10/31/24 07/16/25 History
%-glycerin 0.9 % eye drops
(Refresh Optive)
sertraline 25 mg tablet 25 mg PO HS Depression 10/31/24 07/16/25 History
dapagliflozin propanediol 10 mg 10 mg PO DAILY #30 tabs 11/27/24 07/16/25 Rx
tablet
aspirin 81 mg tablet 81 mg PO DAILY Blood Clot 06/16/25 07/16/25 History
Prevention/Tx
carvedilol 3.125 mg tablet 3.125 mg PO BID Blood pressure #60 06/29/25 07/16/25 Rx
tabs
hydralazine 25 mg tablet 37.5 mg (1.5 x 25 mg) PO BID Blood 06/29/25 07/16/25 Rx
pressure #0 tabs
pantoprazole 40 mg tablet,delayed 40 mg PO DAILY Gastrointestinal 06/29/25 07/16/25 Rx
release issue #30 tabs
acetaminophen 325 mg tablet 650 mg PO Q6HPRN PRN mild pain 07/16/25 07/16/25 History
(Tylenol)
bumetanide 2 mg tablet 2 mg PO QPM Fluid 07/16/25 07/16/25 History
retention/Swelling
bumetanide 2 mg tablet 3 mg PO DAILY Fluid 07/16/25 07/16/25 History
Retention/Swelling
Review of Systems
-
All other systems: Negative unless noted
Physical Exam
Vital Signs
Vital Signs
Temp Pulse Resp BP Pulse Ox
98.1 F 61 18 168/72 96
07/17/25 11:00 07/17/25 11:55 07/17/25 11:00 07/17/25 11:55 07/17/25 11:00
Lab Results
WBC 7.3 10^3/uL (4.8-10.8) 07/17/25 07:34
RBC 4.49 10^6/uL (4.70-6.10) L 07/17/25 07:34
Hgb 12.4 g/dL (13.0-18.0) L 07/17/25 07:34
Hct 38.3 % (39.0-52.0) L 07/17/25 07:34
Plt Count 160 10^3/uL (130-400) D 07/17/25 07:34
Sodium 138 mmol/L (135-145) 07/17/25 07:34
Potassium 3.9 mmol/L (3.5-5.1) 07/17/25 07:34
Chloride 109 mmol/L (98-107) H 07/17/25 07:34
Carbon Dioxide 29 mmol/L (22-30) 07/17/25 07:34
BUN 46 mg/dl (9-20) H 07/17/25 07:34
Creatinine 1.8 mg/dL (0.7-1.3) H 07/17/25 07:34
eGFR 36.89 07/17/25 07:34
Glucose 94 mg/dl (70-99) 07/17/25 07:34
Calcium 7.7 mg/dl (8.4-10.2) L 07/17/25 07:34
Zil-G-Jwzjfxwtlaj Pept 7720 pg/ml 07/16/25 15:56
Albumin 2.0 g/dl (3.5-5.0) L 07/17/25 07:34
Physical Exam
General: Awake, Alert, Oriented, AOx3, No Distress and Nontoxic
HEENT: Anicteric, Conjunctivae Clear, Ear/Nose Intact and Facial Symmetry
Respiratory: Crackels, Normal Excursion and Nonlabored Respirations
Cardiac: S1/S2 and Regular Rate/Rhythm
Breast: Deferred by me
Abdomen: Soft, Nontender and Nondistended
Musculoskeletal: Edema (2+)
Skin: No Rash
Neuro: Nonfocal/Grossly Intact
Psych: Mood/afflect pleasant, Insight/judgement good and Appropriate
Data Reviewed
-
Labs: Labs Reviewed by me, Discussed with Patient and Discussed with Family
Assessment/Plan
-
Impression:
Acute on chronic HFpEF
Acute volume overload in setting of hypoalbuminemia and nephrotic syndrome (membranous nephropathy)
CKD stage 3b (baseline Cr 1.7 to 1.9)
New onset A. Fib
Upper chest/abdominal pain
Hypertensive urgency
Essential HTN
Hypocalcemia-correct Ca is >9
Hyperlipidemia
Dementia, unknown subtype
Transabdominal peritoneal repair of left inguinal hernia with mesh
Anxiety/depression
GERD
BPH
Bilateral renal masses seen on dry CT
Anemia
COPD/ILD
History of pulmonary hypertension
History of moderate MR
PAD with moderate to severe claudication
Plan:
A/w recurrent vol overload despite po diuretics
cr seem at baseline but with underlying nephrotic syndrome and CHF seem to have difficulty in maintaining euvolemic status
will add metolazone as last resort prior moving to HD as per family request
Pt reportedly concerned about HD as he watched his relative dying in 2m of HD
afib per cards, VQ scan today
Continue Farxiga
BP are improving with meds
mem nephropathy felt to be secondary but reportedly no cause found-he is plan to have first RTX on 07/25 out pt
long discussion with son on phone
d/w pt in detail
CT noted Few scattered subcentimeter slightly high attenuation renal lesions which cannot be further characterized on this study without intravenous contrast, most likely hyperdense cyst, cannot exclude solid masses-need out pt f/u
--- NOTE | 2025-07-17 15:43 | CM ---
Patient seen at bedside with and daughter
IA completed
Lives with in a 1 story home, 2 BRO
plof: Independent, no assistive device
DME: shower chair, walker
CURRENT with Chandana ABEL-referral entered in [facility]
PCP: Dr. Byrd
Pharmacy: [facility], [place], [facility] (mail)
PLAN: home with MATHEUS ABEL when stable
Chandana fax #: [phone]
[2025-07-17] MEDS: ZAROXOLYN 2.5 MG PO (16:00)
[2025-07-17] MEDS: REFRESH EYE DROPS (PF) 1 DROPS BOTH EYES ×2 (16:33→20:09)
[2025-07-17] MEDS: ZOLOFT 25 MG PO (20:09)
[2025-07-18] VITALS (7 sets, daily range): BP systolic 163–175; BP diastolic 66–87; PULSE 55; O2SAT 96; BMI 25.9
[2025-07-18] MEDS: APRESOLINE 10 MG IV (04:07)
[2025-07-18 07:49] LABS: Hematocrit 38.3 % (39.0-52.0); Hemoglobin 12.6 g/dL (13.0-18.0); Mean Corp Hgb Conc. 32.9 g/dL (33.0-37.0); Mean Corpuscular Volume 84.5 fL (80.0-94.0); Platelet Count 149 10^3/uL (130-400); Red Cell Dist. Width 14.9 % (11.5-14.5)
[2025-07-18] MEDS: APRESOLINE 37.5 MG PO ×2 (07:51→20:23)
[2025-07-18] MEDS: COREG 3.125 MG PO ×2 (07:54→20:25)
[2025-07-18] MEDS: FARXIGA 10 MG PO (07:54)
[2025-07-18] MEDS: NORVASC 5 MG PO (07:54)
[2025-07-18] MEDS: ASPIR LOW (ENTERIC COATED) 81 MG PO (07:54)
[2025-07-18] MEDS: PROTONIX 40 MG PO (07:54)
[2025-07-18] MEDS: REFRESH EYE DROPS (PF) 1 DROPS BOTH EYES ×3 (07:55→21:14)
[2025-07-18] MEDS: HEPARIN 5000 UNITS SC ×2 (07:55→20:22)
[2025-07-18] MEDS: BUMEX 3 MG IV ×2 (07:56→16:23)
[2025-07-18 08:15] LABS: Blood Urea Nitrogen 52 mg/dl (9-20); Calcium 7.7 mg/dl (8.4-10.2); Carbon Dioxide 28 mmol/L (22-30); Chloride 106 mmol/L (98-107); Estimated Creatinine Clearance 28 ml/min; Glucose 100 mg/dl (70-99); Potassium 3.7 mmol/L (3.5-5.1); Sodium 136 mmol/L (135-145); eGFR 32.51
--- NOTE | 2025-07-18 10:08 | W.PN.CARDCBS ---
Addendum entered and electronically signed by Kae Benitez DO 07/18/25 18:24:
I saw and examined the patient.
The Salt Machine Operator's note was reviewed and I agree with the note.
Comment: Seen and examined. Patient sitting out of bed to chair and has no new specific complaints.
GEN: No distress, awake, Ox3, sitting in chair
HEENT: mmm
LUNGS: fine crackles at bases otherwise CTA, no wheezes/rales
CV: Reg, S1/S2, 1/6 syst murmur
ABD: soft, BS+, NT/ND
EXT:+3 tense bilateral LE edema
Plan:
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
-Patient had good diuresis yesterday with the addition of metolazone per nephrology
-Would continue IV Bumex and consider additional doses of metolazone, will defer to nephrology
-Monitor renal function closely.
-Could consider right heart catheterization next week pending response to diuretics
-
PAT noted during ER visit with conversion pauses up to 4.2 seconds and brief PAF currently in sinus rhythm
-Continue to monitor closely on telemetry for tacky/bradycardia arrhythmia
-Will continue carvedilol 6.25 mg twice daily
-If further atrial fibrillation noted would favor starting oral anticoagulation for stroke risk reduction
-Consider outpatient rhythm star nurse monitoring at time of discharge
Will follow with you
Original Note:
Today's Communication / Plan
-
Check EKG, if further atrial fibrillation may need to consider anticoagulation
Consider increase in hydralazine to 50 mg twice a day for better blood pressure control
Ongoing diuresis, nephrology adjusting diuretics
Impression / Plan
-
PCP: Dr. Chung
Equine Vet: Dr. Cinthya Nuñez
Impression:
Presented with SOB, weight gain, LE edema 07/16/2025
Acute hypervolemia due to hypoalbuminemia and nephrotic syndrome with biopsy-proven membranous nephropathy
Acute on chronic heart failure with preserved ejection fraction, proBNP 7720
CKD 3B
PAT with RVR and conversion pause 07/17/2025
4.2-second conversion pause seen on telemetry at 0512 on 07/17/2025
PACs
Moderate MR
PAD, abnormal L IVAN, mod to severe claudication
HTN
HLD
GERD
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
Pulmonary hypertension
Echo 04/10/2025: EF 63%, mild MR, trivial AR, mild to moderate TR, estimated PAP 48 to 51 mmHg, mild to moderate RI, trivial pericardial effusion
Plan:
-Presented 07/16/2025 with SOB, weight gain, LE edema. Found to have acute on chronic heart failure with acute volume overload in setting of hypoalbuminemia and nephrotic syndrome (membranous nephropathy)
-Patient had runs of PAT in setting of volume overload with conversion pauses up to 4.2 seconds on admission in ED. Coreg increased to 6.25 mg twice a day. Heart rate has improved and no further conversion pauses noted on review of telemetry
07/18/2025. Although ECG on 07/17 in am showed atrial fibrillation w/ RVR. Currently in sinus rhythm/bradycardia with PACs. Check EKG. patient currently not on anticoagulation. May need anticoagulation if further Afib noted
-Weight up 20 lbs on admission (185lbs) from dry weight (160-161 lbs) despite compliance with Bumex according to patient. Volume overload is related to nephrotic syndrome and hypoalbuminemia. Appreciate nephrology consultation
-Patient was given 2.5 mg of metolazone in addition to Bumex 07/17/2025 by nephrology. Weight down 5 pounds since overnight. Continue IV diuresis dosing per nephrology. Unclear if there would be benefit of right heart cath at this time given good
response to diuresis
-Creatinine 1.7 on admission, now 2.0 (07/18/2025).
-Mem nephropathy felt to be secondary but reportedly no cause found-he is plan to have first RTX on 07/25 per Nephrology.
-Outpatient dose of hydralazine 37.5 mg BID has been continued. BP this morning was 170/77, consider increase to 50 mg BID if needed.
-Outpatient dose of amlodipine 5 mg daily has been continued.
-Outpatient dose of Farxiga 10 mg daily has been continued
[facility] 07/16/2025:
Patient came to the ER yesterday with weight gain and bloating and was admitted with recurrent volume overload in the setting of hypoalbuminemia and nephrotic syndrome, cardiology was consulted for rapid atrial arrhythmia. As you recall patient has
a history of biopsy-proven membranous nephropathy and is managed for nephrotic syndrome and hypoalbuminemia. He has had several admissions this year for IV diuresis and dry weight is 160 lbs, but weight on admission yesterday was 181 lbs. Patient
reports compliance with Bumex 3 mg a.m. and 2 mg p.m. daily. Patient denies any dietary indiscretion. Patient reports increased urine output with Bumex 3 mg IV BID since admission, but his biggest complaint remains abdominal distention and
bloating. Patient also had hernia repair last admission, this was a second hernia repair and they used YAYA repair that time. Patient denies any chest pain or orthopnea. Cardiology was consulted for rapid atrial arrhythmia seen on telemetry
overnight. Patient denies any palpitations and reports he had no idea that his heart was out of rhythm. Patient was started on Cardizem gtt and then had up to 4.2-second conversion pause which he states he was also unaware of and denies feeling
lightheaded or dizzy. He is now in SR on my review of telemetry.
Progress Note - Equine Vet
Subjective
Date of Service: July 18, 2025
Patient seen and examined. Sitting in chair reporting that he feels much better. Per nursing still having MUNOZ
Objective
Labs:
07/18/25 06:59
07/18/25 06:59
Labs
Hgb 12.6 g/dL (13.0-18.0) L 07/18/25 06:59
Hct 38.3 % (39.0-52.0) L 07/18/25 06:59
Plt Count 149 10^3/uL (130-400) 07/18/25 06:59
Sodium 136 mmol/L (135-145) 07/18/25 06:59
Potassium 3.7 mmol/L (3.5-5.1) 07/18/25 06:59
BUN 52 mg/dl (9-20) H 07/18/25 06:59
Creatinine 2.0 mg/dL (0.7-1.3) H 07/18/25 06:59
Glucose 100 mg/dl (70-99) H 07/18/25 06:59
Troponins
07/16/25
15:56
Troponin I 0.032
Vital Signs and I&O:
Vital Signs
Temp Pulse Resp BP Pulse Ox
98.3 F 66 20 170/77 96
07/18/25 07:00 07/18/25 07:00 07/18/25 07:00 07/18/25 07:00 07/18/25 07:00
Vital Signs
Temp Pulse Resp BP Pulse Ox
98.3 F 66 20 170/77 96
07/18/25 07:00 07/18/25 07:00 07/18/25 07:00 07/18/25 07:00 07/18/25 07:00
Intake & Output
07/16/25 07/17/25 07/18/25 07/19/25
06:59 06:59 06:59 06:59
Intake Total 1919 / 1919
Output Total 3000 / 3000
Balance -1080 / -1080
Physical Exam
Physical Exam
GEN: No distress, awake, Ox3, sitting in chair
HEENT: supple, anicteric, mmm
LUNGS: fine crackles at bases otherwise CTA, no wheezes/rales
CV: Reg, S1/S2, 1/6 syst murmur, no rubs or gallops
ABD: soft, BS+, NT/ND
EXT:+2 bilateral LE edema
NEURO: Gross non-focal
SKIN: No rash, warm, pink
--- NOTE | 2025-07-18 10:46 | CM ---
MD indicated patient ready for discharge.
As per care and Pat ABEL accepted patient.
Family will drive him home.
PLAN Home with Chandana ABEL [phone]
[2025-07-18] MEDS: SPIRIVA RESPIMAT 2.5 MCG 2 PUFF INH (11:28)
[2025-07-18] MEDS: SYMBICORT 80/4.5 MCG INHALER 2 PUFF INH ×2 (11:29→19:25)
--- NOTE | 2025-07-18 11:37 | W.PN.HOSP.TC ---
Today's Communication/Plan
-
continue diuresis per Cards/Renal
Assessment / Plan
Assessment / Plan
Assessment:
Acute volume overload in setting of hypoalbuminemia and nephrotic syndrome (membranous nephropathy)
CKD stage 3b (baseline Cr 1.7 to 1.9)
- Continue IV Bumex; requires intensive monitoring of I/Os, weights, lytes
- Nephrology following
New onset A. Fib
- s/p 1 dose IV Lopressor; then Cardizem drip but that was stopped due to conversion pauses
- continue oral beta vicky
- TSH 0.72
- Echo 04/30: EF 63%, mildly enlarged RV, ZORHA, mild MR, trivial AR, moderate TR, moderate GA
- Cards following
Upper chest/abdominal pain
- could be related to recent surgery vs other
- CT (no contrast) with relative thickening of the wall of the stomach; unclear etiology. continue PPI. OP EGD recommended to family
- trop unremarkable
- higher risk VTE in setting of nephrotic syndrome, V/Q low probability PE
Hypertensive urgency in setting of volume overload/CKD
Essential HTN
- continue oral BP meds
- monitor BP
Hypocalcemia
- Albumin 2.0; correct Ca is >9
Acute on chronic HFpEF
- Diuretics as above
- GDMT: Coreg/Farxiga
Hyperlipidemia
Dementia, unknown subtype
Transabdominal peritoneal repair of left inguinal hernia with mesh
- incision sites healing well
- CT: subacute postoperative changes of the soft tissues of the left inguinal hernia from hernia repair with some likely inflammatory soft tissue stranding and small lymph nodes. No findings to confirm accompanying abnormal focal fluid collection
- OP GS f/u (Dr. Herrera)
Anxiety/depression
- continue sertraline
GERD
- continue Protonix
BPH
- continue tamsulosin
Bilateral renal masses seen on dry CT
- consider OP MRI for further evaluation
COPD
- reinitiate Trelegy or its equivalents
- Pulm evaluation if worsening (but currently improving); otherwise OP f/u
- d/w son Christiano
DVT ppx: SC heparin
Code: Full
Anticipated Discharge: > 48 hours
Subjective/Interval History
-
Date of Service: July 18, 2025
MUNOZ improving, edema improving and also weight decreasing
no CP
Objective Data
-
Labs:
Laboratory Results
07/18/25
06:59
WBC 8.0
Hgb 12.6 L
Hct 38.3 L
Plt Count 149
Sodium 136
Potassium 3.7
Chloride 106
Carbon Dioxide 28
BUN 52 H
Creatinine 2.0 H
Glucose 100 H
Calcium 7.7 L
Vital Signs:
Vital Signs
Temp Pulse Resp BP Pulse Ox
98.0 F 76 16 175/84 96
07/18/25 11:00 07/18/25 11:34 07/18/25 11:34 07/18/25 11:00 07/18/25 11:34
I&O
07/17/25 07/18/25 07/19/25
06:59 06:59 06:59
Intake Total 1919
Output Total 3000 / 3000
Balance -1080 / -1080
Physical Exam
-
General: No Apparent Distress
HEENT: Normocephalic and Atraumatic
Respiratory: Negative Wheezes
Cardiac: Regular Rhythm and S1/S2
GI: Soft and Nontender
Musculoskeletal: Edema, Right Lower Extrem and Edema, Left Lower Extrem
Neuro: AO x 3
Psych: Calm
Data Reviewed
-
Total Time Spent with Patient (in minutes): 51
Labs: Labs Reviewed by me
--- NOTE | 2025-07-18 12:26 | W.PN.NEPH.PH ---
Today's Communication / Plan
-
metolazone
Assessment/Plan
-
Impression:
Acute on chronic HFpEF
Acute volume overload in setting of hypoalbuminemia and nephrotic syndrome (membranous nephropathy)
CKD stage 3b (baseline Cr 1.7 to 1.9)
New onset A. Fib
Upper chest/abdominal pain
Hypertensive urgency
Essential HTN
Hypocalcemia-correct Ca is >9
Hyperlipidemia
Dementia, unknown subtype
Transabdominal peritoneal repair of left inguinal hernia with mesh
Anxiety/depression
GERD
BPH
Bilateral renal masses seen on dry CT
Anemia
COPD/ILD
History of pulmonary hypertension
History of moderate MR
PAD with moderate to severe claudication
Plan:
follow BMP
continue bumex IV
add metolazone 5mg today
CT noted Few scattered subcentimeter slightly high attenuation renal lesions which cannot be further characterized on this study without intravenous contrast, most likely hyperdense cyst, cannot exclude solid masses-need out pt f/u
-
-
Date of Service: July 18, 2025
CC / HPI / ROS
-
Chief Complaint:
ROLANDA
History of Present Illness:
diuresing for decompensated HFpEF with IV lasix
BP stable
Cr relatively stable at 2.0
K normal
Review of Systems:
no CP/SOB
Labs
-
Labs:
WBC 8.0 10^3/uL (4.8-10.8) 07/18/25 06:59
RBC 4.53 10^6/uL (4.70-6.10) L 07/18/25 06:59
Hgb 12.6 g/dL (13.0-18.0) L 07/18/25 06:59
Hct 38.3 % (39.0-52.0) L 07/18/25 06:59
Plt Count 149 10^3/uL (130-400) 07/18/25 06:59
Sodium 136 mmol/L (135-145) 07/18/25 06:59
Potassium 3.7 mmol/L (3.5-5.1) 07/18/25 06:59
Chloride 106 mmol/L (98-107) 07/18/25 06:59
Carbon Dioxide 28 mmol/L (22-30) 07/18/25 06:59
BUN 52 mg/dl (9-20) H 07/18/25 06:59
Creatinine 2.0 mg/dL (0.7-1.3) H 07/18/25 06:59
eGFR 32.51 07/18/25 06:59
Glucose 100 mg/dl (70-99) H 07/18/25 06:59
Calcium 7.7 mg/dl (8.4-10.2) L 07/18/25 06:59
Gur-R-Inuwoczvttg Pept 7720 pg/ml 07/16/25 15:56
Albumin 2.0 g/dl (3.5-5.0) L 07/17/25 07:34
Physical Exam
-
Vital Signs:
Vital Signs
Temp Pulse Resp BP Pulse Ox
98.0 F 76 16 175/84 96
07/18/25 11:00 07/18/25 11:34 07/18/25 11:34 07/18/25 11:00 07/18/25 11:34
Cardiovascular:: Regular rate and rhythm
Respiratory:: Bilateral: Coarse
Lung Excursion:: Normal
Abdomen:: Nontender and Soft
Bowel Sounds:: Normal
Extremity Edema:: +3: Bilateral:
[2025-07-18] MEDS: ZAROXOLYN 5 MG PO (13:12)
[2025-07-18] MEDS: ZOLOFT 25 MG PO (21:14)
[2025-07-19] VITALS (7 sets, daily range): BP systolic 111–138; BP diastolic 73–96; BMI 25.7
[2025-07-19] MEDS: LOPRESSOR 5 MG IV ×2 (03:24→06:08)
[2025-07-19] MEDS: SPIRIVA RESPIMAT 2.5 MCG 2 PUFF INH (07:34)
[2025-07-19] MEDS: SYMBICORT 80/4.5 MCG INHALER 2 PUFF INH ×2 (07:34→19:36)
--- NOTE | 2025-07-19 08:09 | PTCARENOTE ---
DICTAPHONE MECHANIC made aware @0310 of patient on tele with HR sustaining between 130s [id number]. EKG obtained showed Afib with rapid ventricular response. Patient asymptomatic with BP 138/96 . 5mg IV lopressor ordered and administered. DICTAPHONE MECHANIC made aware @0548 patient
is still in Afib with HR between 100 to 130s but no longer sustaining in the 130s with BP 135/96, asymptomatic. DICTAPHONE MECHANIC ordered 5 mg IV lopressor, administered as ordered. Plan of care continues.
[2025-07-19 08:10] LABS: Hematocrit 38.5 % (39.0-52.0); Hemoglobin 12.6 g/dL (13.0-18.0); Mean Corp Hgb Conc. 32.7 g/dL (33.0-37.0); Mean Corpuscular Volume 83.3 fL (80.0-94.0); Platelet Count 174 10^3/uL (130-400); Red Cell Dist. Width 14.8 % (11.5-14.5)
[2025-07-19 08:15] LABS: Blood Urea Nitrogen 57 mg/dl (9-20); Calcium 7.9 mg/dl (8.4-10.2); Carbon Dioxide 30 mmol/L (22-30); Chloride 104 mmol/L (98-107); Estimated Creatinine Clearance 28 ml/min; Glucose 103 mg/dl (70-99); Magnesium 1.9 mg/dl (1.6-2.3); Potassium 3.9 mmol/L (3.5-5.1); Sodium 134 mmol/L (135-145); eGFR 32.51
[2025-07-19] MEDS: PROTONIX 40 MG PO (08:41)
[2025-07-19] MEDS: FARXIGA 10 MG PO (08:41)
[2025-07-19] MEDS: ASPIR LOW (ENTERIC COATED) 81 MG PO (08:41)
[2025-07-19] MEDS: NORVASC 5 MG PO (08:41)
[2025-07-19] MEDS: APRESOLINE 37.5 MG PO ×2 (08:42→20:23)
[2025-07-19] MEDS: REFRESH EYE DROPS (PF) 1 DROPS BOTH EYES ×3 (08:43→22:31)
[2025-07-19] MEDS: BUMEX 3 MG IV ×2 (08:44→15:52)
[2025-07-19] MEDS: HEPARIN 5000 UNITS SC (08:45)
[2025-07-19] MEDS: COREG 3.125 MG PO ×2 (08:47→20:24)
--- NOTE | 2025-07-19 11:17 | W.PN.HOSP.TC ---
Today's Communication/Plan
-
await cards/renal recs
continue diuresis and monitor weights, lytes/labs
Assessment / Plan
Assessment / Plan
Assessment:
Acute volume overload in setting of hypoalbuminemia and nephrotic syndrome (membranous nephropathy)
CKD stage 3b (baseline Cr 1.7 to 1.9)
- Continue IV Bumex; requires intensive monitoring of I/Os, weights, lytes
- Metolazone per Nephrology
New onset A. Fib
- s/p 1 dose IV Lopressor; then Cardizem drip but that was stopped due to conversion pauses
- continue oral beta vicky
- TSH 0.72
- Echo 04/30: EF 63%, mildly enlarged RV, ZOHRA, mild MR, trivial AR, moderate TR, moderate FL
- Cards following
Upper chest/abdominal pain
- could be related to recent surgery vs other
- CT (no contrast) with relative thickening of the wall of the stomach; unclear etiology. continue PPI. OP EGD recommended to family
- trop unremarkable
- higher risk VTE in setting of nephrotic syndrome, V/Q low probability PE
Hypertensive urgency in setting of volume overload/CKD
Essential HTN
- continue oral BP meds
- monitor BP
Hypocalcemia
- Albumin 2.0; correct Ca is >9
Acute on chronic HFpEF
- Diuretics as above
- GDMT: Coreg/Farxiga
Hyperlipidemia
Dementia, unknown subtype
Transabdominal peritoneal repair of left inguinal hernia with mesh
- incision sites healing well
- CT: subacute postoperative changes of the soft tissues of the left inguinal hernia from hernia repair with some likely inflammatory soft tissue stranding and small lymph nodes. No findings to confirm accompanying abnormal focal fluid collection
- OP GS f/u (Dr. Herrera)
Anxiety/depression
- continue sertraline
GERD
- continue Protonix
BPH
- continue tamsulosin
Bilateral renal masses seen on dry CT
- consider OP MRI for further evaluation
COPD
- reinitiate Trelegy or its equivalents
- Pulm evaluation if worsening (but currently improving); otherwise OP f/u
- d/w son Christiano
DVT ppx: SC heparin
Code: Full
Anticipated Discharge: > 48 hours
Subjective/Interval History
-
Date of Service: July 19, 2025
pending AM weight
reports feeling less SOB and he feels edema improving
Objective Data
-
Labs:
Laboratory Results
07/19/25
07:40
WBC 9.2
Hgb 12.6 L
Hct 38.5 L
Plt Count 174
Sodium 134 L
Potassium 3.9
Chloride 104
Carbon Dioxide 30
BUN 57 H
Creatinine 2.0 H
Glucose 103 H
Calcium 7.9 L
Vital Signs:
Vital Signs
Temp Pulse Resp BP Pulse Ox
97.8 F 126 21 136/92 96
07/19/25 07:53 07/19/25 08:41 07/19/25 07:53 07/19/25 08:41 07/19/25 07:53
I&O
07/18/25 07/19/25 07/20/25
06:59 06:59 06:59
Intake Total 0 / 192 1320 / 1320
Output Total 3000 / 3000 2099 / 2099
Balance -1080 / -1080 -780 / -780
Physical Exam
-
General: No Apparent Distress
HEENT: Normocephalic and Atraumatic
Respiratory: Negative Wheezes
Cardiac: Regular Rhythm and S1/S2
GI: Soft
Musculoskeletal: Edema, Right Lower Extrem and Edema, Left Lower Extrem
Neuro: AO x 3
Psych: Calm
Data Reviewed
-
Total Time Spent with Patient (in minutes): 51
Labs: Labs Reviewed by me
[2025-07-19] MEDS: HEPARIN 25000 UNITS/250 ML IV (11:49)
[2025-07-19 12:34] LABS: APTT 32.3 Sec (23.4-35.0)
[2025-07-19] MEDS: CARDIZEM 125 IV (12:47)
--- NOTE | 2025-07-19 14:46 | W.PN.NEPH.PH ---
Today's Communication / Plan
-
zaroxolyn
Assessment/Plan
-
Impression:
Acute on chronic HFpEF
Acute volume overload in setting of hypoalbuminemia and nephrotic syndrome (membranous nephropathy)
CKD stage 3b (baseline Cr 1.7 to 1.9)
New onset A. Fib
Upper chest/abdominal pain
Hypertensive urgency
Essential HTN
Hypocalcemia-correct Ca is >9
Hyperlipidemia
Dementia, unknown subtype
Transabdominal peritoneal repair of left inguinal hernia with mesh
Anxiety/depression
GERD
BPH
Bilateral renal masses seen on dry CT
Anemia
COPD/ILD
History of pulmonary hypertension
History of moderate MR
PAD with moderate to severe claudication
Plan:
follow BMP
continue bumex IV
add metolazone 5mg today again
goeal is to try to remove at least another 5-10# before switching to po
CT noted Few scattered subcentimeter slightly high attenuation renal lesions which cannot be further characterized on this study without intravenous contrast, most likely hyperdense cyst, cannot exclude solid masses-need out pt f/u
-
-
Date of Service: July 19, 2025
CC / HPI / ROS
-
Chief Complaint:
ROLANDA
History of Present Illness:
diuresing for decompensated HFpEF with IV lasix
BP stable
Cr relatively stable at 2.0
K normal
Na 134
weights down
Review of Systems:
no CP/SOB
Labs
-
Labs:
WBC 9.2 10^3/uL (4.8-10.8) 07/19/25 07:40
RBC 4.62 10^6/uL (4.70-6.10) L 07/19/25 07:40
Hgb 12.6 g/dL (13.0-18.0) L 07/19/25 07:40
Hct 38.5 % (39.0-52.0) L 07/19/25 07:40
Plt Count 174 10^3/uL (130-400) 07/19/25 07:40
Sodium 134 mmol/L (135-145) L 07/19/25 07:40
Potassium 3.9 mmol/L (3.5-5.1) 07/19/25 07:40
Chloride 104 mmol/L (98-107) 07/19/25 07:40
Carbon Dioxide 30 mmol/L (22-30) 07/19/25 07:40
BUN 57 mg/dl (9-20) H 07/19/25 07:40
Creatinine 2.0 mg/dL (0.7-1.3) H 07/19/25 07:40
eGFR 32.51 07/19/25 07:40
Glucose 103 mg/dl (70-99) H 07/19/25 07:40
Calcium 7.9 mg/dl (8.4-10.2) L 07/19/25 07:40
Xhy-A-Fsaiidjyvwc Pept 7720 pg/ml 07/16/25 15:56
Albumin 2.0 g/dl (3.5-5.0) L 07/17/25 07:34
Physical Exam
-
Vital Signs:
Vital Signs
Temp Pulse Resp BP Pulse Ox
97.5 F 133 20 122/86 96
07/19/25 12:12 07/19/25 12:12 07/19/25 12:12 07/19/25 12:12 07/19/25 12:12
Cardiovascular:: Regular rate and rhythm
Respiratory:: Bilateral: Coarse
Lung Excursion:: Normal
Abdomen:: Nontender and Soft
Bowel Sounds:: Normal
Extremity Edema:: +3: Bilateral: (to thigh)
[2025-07-19] MEDS: ZAROXOLYN 5 MG PO (15:56)
--- NOTE | 2025-07-19 16:03 | W.PN.CARDCBS ---
Addendum entered and electronically signed by Kae Benitez, 07/19/25 16:11:
provided update to patient's son Christiano
Original Note:
Today's Communication / Plan
-
Patient in atrial fibrillation, rapid response
Start IV heparin drip with eventual plan to transition to NOAC if no procedures are planned
IV Cardizem drip for rate control
Stop amlodipine
Continue diuresis as per nephrology
Impression / Plan
-
PCP: Dr. Chung
Hoop Driving Machine Operator: Dr. Cinthya Nuñez
Impression:
Presented with SOB, weight gain, LE edema 07/16/2025
Acute hypervolemia due to hypoalbuminemia and nephrotic syndrome with biopsy-proven membranous nephropathy
Acute on chronic heart failure with preserved ejection fraction, proBNP 7720
CKD 3B
PAT with RVR and conversion pause 07/17/2025
4.2-second conversion pause seen on telemetry at 0512 on 07/17/2025
PACs
Moderate MR
PAD, abnormal L IVAN, mod to severe claudication
HTN
HLD
GERD
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
Pulmonary hypertension
Echo 04/10/2025: EF 63%, mild MR, trivial AR, mild to moderate TR, estimated PAP 48 to 51 mmHg, mild to moderate IA, trivial pericardial effusion
Plan:
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
-Patient had good diuresis yesterday with the addition of metolazone per nephrology
-Would continue IV Bumex and metolazone, per nephrology
-Monitor renal function closely.
-Could consider right heart catheterization next week pending response to diuretics
PAT noted during ER visit with conversion pauses up to 4.2 seconds, And brief PAF now in atrial fibrillation, asymptomatic
-IV Cardizem drip
-Stop amlodipine
-IV heparin drip; Eventual transition to oral anticoagulation if no procedures are planned
-Will continue carvedilol 6.25 mg twice daily
Will follow with you
[facility] 07/16/2025:
Patient came to the ER yesterday with weight gain and bloating and was admitted with recurrent volume overload in the setting of hypoalbuminemia and nephrotic syndrome, cardiology was consulted for rapid atrial arrhythmia. As you recall patient has
a history of biopsy-proven membranous nephropathy and is managed for nephrotic syndrome and hypoalbuminemia. He has had several admissions this year for IV diuresis and dry weight is 160 lbs, but weight on admission yesterday was 181 lbs. Patient
reports compliance with Bumex 3 mg a.m. and 2 mg p.m. daily. Patient denies any dietary indiscretion. Patient reports increased urine output with Bumex 3 mg IV BID since admission, but his biggest complaint remains abdominal distention and
bloating. Patient also had hernia repair last admission, this was a second hernia repair and they used YAYA repair that time. Patient denies any chest pain or orthopnea. Cardiology was consulted for rapid atrial arrhythmia seen on telemetry
overnight. Patient denies any palpitations and reports he had no idea that his heart was out of rhythm. Patient was started on Cardizem gtt and then had up to 4.2-second conversion pause which he states he was also unaware of and denies feeling
lightheaded or dizzy. He is now in SR on my review of telemetry.
Progress Note - Hoop Driving Machine Operator
Subjective
Date of Service: July 19, 2025
Seen and examined. Patient is out of bed to chair and lower extremity edema appears less tense. No palpitations or chest pain. Denies shortness of breath at rest.
Objective
Labs:
07/19/25 07:40
07/19/25 07:40
Labs
Hgb 12.6 g/dL (13.0-18.0) L 07/19/25 07:40
Hct 38.5 % (39.0-52.0) L 07/19/25 07:40
Plt Count 174 10^3/uL (130-400) 07/19/25 07:40
APTT 32.3 Sec (23.4-35.0) 07/19/25 11:43
Sodium 134 mmol/L (135-145) L 07/19/25 07:40
Potassium 3.9 mmol/L (3.5-5.1) 07/19/25 07:40
BUN 57 mg/dl (9-20) H 07/19/25 07:40
Creatinine 2.0 mg/dL (0.7-1.3) H 07/19/25 07:40
Glucose 103 mg/dl (70-99) H 07/19/25 07:40
Troponins
07/16/25
15:56
Troponin I 0.032
Vital Signs and I&O:
Vital Signs
Temp Pulse Resp BP Pulse Ox
97.5 F 112 20 128/78 96
07/19/25 12:12 07/19/25 15:52 07/19/25 12:12 07/19/25 15:52 07/19/25 12:12
Vital Signs
Temp Pulse Resp BP Pulse Ox
97.5 F 112 20 128/78 96
07/19/25 12:12 07/19/25 15:52 07/19/25 12:12 07/19/25 15:52 07/19/25 12:12
Intake & Output
07/17/25 07/18/25 07/19/25 07/20/25
06:59 06:59 06:59 06:59
Intake Total 1920 / 1920 1320 / 1320
Output Total 3000 / 3000 2099 / 2099
Balance -1080 / -1080 -780 / -780
Physical Exam
Physical Exam
GEN: No distress, awake, Ox3, sitting in chair
HEENT: supple, anicteric, mmm
LUNGS: fine crackles at bases otherwise CTA, no wheezes/rales
CV: Irregularly irregular. Tachycardic. Positive S1-S2. No murmur
ABD: soft, BS+, NT/ND
EXT:+2 bilateral LE edema
[2025-07-19 18:21] LABS: APTT 73.5 Sec (23.4-35.0)
[2025-07-19] MEDS: ZOLOFT 25 MG PO (22:31)
[2025-07-20] VITALS (7 sets, daily range): BP systolic 118–160; BP diastolic 49–76; BMI 25.6
[2025-07-20 00:57] LABS: APTT 84.6 Sec (23.4-35.0)
[2025-07-20] MEDS: CARDIZEM 125 IV (01:23)
[2025-07-20] MEDS: MAALOX 30 ML PO ×2 (01:32→07:43)
[2025-07-20 06:42] LABS: Hematocrit 32.3 % (39.0-52.0); Hemoglobin 10.7 g/dL (13.0-18.0); Mean Corp Hgb Conc. 33.1 g/dL (33.0-37.0); Mean Corpuscular Volume 83.7 fL (80.0-94.0); Platelet Count 127 10^3/uL (130-400); Red Cell Dist. Width 14.8 % (11.5-14.5)
[2025-07-20 06:46] LABS: APTT 63.2 Sec (23.4-35.0)
[2025-07-20 06:57] LABS: Blood Urea Nitrogen 60 mg/dl (9-20); Calcium 7.5 mg/dl (8.4-10.2); Carbon Dioxide 30 mmol/L (22-30); Chloride 103 mmol/L (98-107); Estimated Creatinine Clearance 28 ml/min; Glucose 91 mg/dl (70-99); Magnesium 2.0 mg/dl (1.6-2.3); Potassium 3.7 mmol/L (3.5-5.1); Sodium 134 mmol/L (135-145); eGFR 32.51
[2025-07-20] MEDS: REFRESH EYE DROPS (PF) 1 DROPS BOTH EYES ×3 (07:42→22:02)
[2025-07-20] MEDS: FARXIGA 10 MG PO (07:43)
[2025-07-20] MEDS: PROTONIX 40 MG PO (07:43)
[2025-07-20] MEDS: ASPIR LOW (ENTERIC COATED) 81 MG PO (07:43)
[2025-07-20] MEDS: BUMEX 3 MG IV ×2 (07:44→15:24)
[2025-07-20] MEDS: ZAROXOLYN 5 MG PO ×2 (07:50→15:27)
[2025-07-20] MEDS: APRESOLINE 37.5 MG PO ×2 (07:51→20:43)
[2025-07-20] MEDS: COREG 3.125 MG PO ×2 (07:51→20:43)
[2025-07-20] MEDS: SYMBICORT 80/4.5 MCG INHALER 2 PUFF INH ×2 (07:57→20:15)
[2025-07-20] MEDS: SPIRIVA RESPIMAT 2.5 MCG 2 PUFF INH (07:57)
[2025-07-20] MEDS: CARDIZEM CD 120 MG PO (08:05)
[2025-07-20 08:16] LABS: Hematocrit 34.0 % (39.0-52.0); Hemoglobin 11.1 g/dL (13.0-18.0); Mean Corp Hgb Conc. 32.6 g/dL (33.0-37.0); Mean Corpuscular Volume 82.7 fL (80.0-94.0); Nucleated Red Blood Cells % 0 % (-); Platelet Count 136 10^3/uL (130-400); Red Cell Dist. Width 14.9 % (11.5-14.5)
[2025-07-20 09:25] LABS: Iron 37 ug/dl (49-181)
[2025-07-20 09:35] LABS: Total Iron Binding Capacity 176 ug/dl (261-462)
[2025-07-20 10:01] LABS: Ferritin 188.0 ng/ml (17.9-464.0)
[2025-07-20 10:32] LABS: Folate 8.3 ng/ml (2.76-20); Vitamin B12 513 pg/ml (239-931)
--- NOTE | 2025-07-20 10:37 | W.PN.HOSP.TC ---
Today's Communication/Plan
-
IV heparin held
monitor labs
diuresis per nephrology
monitor tele on CCB/BB
follow cards/renal recs
Assessment / Plan
Assessment / Plan
Assessment:
Acute volume overload in setting of hypoalbuminemia and nephrotic syndrome (membranous nephropathy)
CKD stage 3b (baseline Cr 1.7 to 1.9)
- Continue IV Bumex; requires intensive monitoring of I/Os, weights, lytes
- Metolazone per Nephrology
New onset A. Fib
- s/p 1 dose IV Lopressor; then Cardizem drip but that was stopped due to conversion pauses; now on oral cardizem
- continue oral beta vicky
- monitor tele
- TSH 0.72
- Echo 04/30: EF 63%, mildly enlarged RV, ZOHRA, mild MR, trivial AR, moderate TR, moderate MN
- IV Heparin on hold per Cardiology
- Cards following
Upper chest/abdominal pain
- could be related to recent surgery vs other
- CT (no contrast) with relative thickening of the wall of the stomach; unclear etiology. continue PPI. OP EGD recommended to family
- trop unremarkable
- higher risk VTE in setting of nephrotic syndrome, V/Q low probability PE
Hypertensive urgency in setting of volume overload/CKD
Essential HTN
- continue oral BP meds
- monitor BP
Hypocalcemia
- Albumin 2.0; correct Ca is >9
Acute on chronic HFpEF
- Diuretics as above
- GDMT: Coreg/Farxiga
Hyperlipidemia
Dementia, unknown subtype
Transabdominal peritoneal repair of left inguinal hernia with mesh
- incision sites healing well
- CT: subacute postoperative changes of the soft tissues of the left inguinal hernia from hernia repair with some likely inflammatory soft tissue stranding and small lymph nodes. No findings to confirm accompanying abnormal focal fluid collection
- OP GS f/u (Dr. Herrera)
Anxiety/depression
- continue sertraline
GERD
- continue Protonix
BPH
- continue tamsulosin
Bilateral renal masses seen on dry CT
- consider OP MRI for further evaluation
COPD
- reinitiate Trelegy or its equivalents
- Pulm evaluation if worsening (but currently improving); otherwise OP f/u
- d/w son Christiano
CKD related anemia
- no evidence of bleeding
- normal B12/folate. No iron deficiency
DVT ppx: SC heparin
Code: Full
Anticipated Discharge: > 48 hours
Subjective/Interval History
-
Date of Service: July 20, 2025
resting comfortably, no CP or SOB
now in sinus nora on oral Cardizem; IV heparin stopped
weight stable today
Objective Data
-
Labs:
Laboratory Results
07/20/25 07/20/25 07/20/25
00:06 00:13 05:30
WBC 7.9
Hgb 10.7 L
Hct 32.3 L
Plt Count 127 L D
APTT Cancelled 84.6 H 63.2 H
Sodium 134 L
Potassium 3.7
Chloride 103
Carbon Dioxide 30
BUN 60 H
Creatinine 2.0 H
Glucose 91
Calcium 7.5 L
07/20/25 07/20/25
06:15 08:06
WBC 8.5
Hgb 11.1 L
Hct 34.0 L
Plt Count 136
APTT Cancelled
Sodium
Potassium
Chloride
Carbon Dioxide
BUN
Creatinine
Glucose
Calcium
Vital Signs:
Vital Signs
Temp Pulse Resp BP Pulse Ox
97.7 F 53 20 143/76 95
07/20/25 08:08 07/20/25 08:08 07/20/25 08:08 07/20/25 08:08 07/20/25 08:08
I&O
07/19/25 07/20/25 07/21/25
06:59 06:59 06:59
Intake Total 1320 / 1320 1440 / 1440
Output Total 2100 / 2100 1800 / 1800
Balance -780 / -780 -360 / -360
Physical Exam
-
General: No Apparent Distress
HEENT: Normocephalic and Atraumatic
Respiratory: Negative Wheezes
Cardiac: Regular Rhythm and S1/S2
Musculoskeletal: Edema, Right Lower Extrem and Edema, Left Lower Extrem
Neuro: AO x 3
Psych: Calm
Data Reviewed
-
Total Time Spent with Patient (in minutes): 42
Labs: Labs Reviewed by me
--- NOTE | 2025-07-20 11:02 | W.PN.NEPH.PH ---
Addendum entered and electronically signed by Damian Pedro MD 07/20/25 12:34:
Pt has outpatient RTX infusion on Monday. Will make po diuretic regimen tomorrow so that he make his infusion.
Original Note:
Today's Communication / Plan
-
increase metolazone
Assessment/Plan
-
Impression:
Acute on chronic HFpEF
Acute volume overload in setting of hypoalbuminemia and nephrotic syndrome (membranous nephropathy)
CKD stage 3b (baseline Cr 1.7 to 1.9)
New onset A. Fib
Upper chest/abdominal pain
Hypertensive urgency
Essential HTN
Hypocalcemia-correct Ca is >9
Hyperlipidemia
Dementia, unknown subtype
Transabdominal peritoneal repair of left inguinal hernia with mesh
Anxiety/depression
GERD
BPH
Bilateral renal masses seen on dry CT
Anemia
COPD/ILD
History of pulmonary hypertension
History of moderate MR
PAD with moderate to severe claudication
Plan:
follow BMP
continue bumex IV
increase metolazone 5mg BID
goal is to try to remove at least another 5-10# before switching to po
CT noted Few scattered subcentimeter slightly high attenuation renal lesions which cannot be further characterized on this study without intravenous contrast, most likely hyperdense cyst, cannot exclude solid masses-need out pt f/u
-
-
Date of Service: July 20, 2025
CC / HPI / ROS
-
Chief Complaint:
ROLANDA
History of Present Illness:
diuresing for decompensated HFpEF with IV lasix and metolazone, albeit slowly
BP stable
Cr relatively stable at 2.0
K normal
Na 134 stable
weights down
Review of Systems:
no CP/SOB
Labs
-
Labs:
WBC 8.5 10^3/uL (4.8-10.8) 07/20/25 08:06
RBC 4.11 10^6/uL (4.70-6.10) L 07/20/25 08:06
Hgb 11.1 g/dL (13.0-18.0) L 07/20/25 08:06
Hct 34.0 % (39.0-52.0) L 07/20/25 08:06
Plt Count 136 10^3/uL (130-400) 07/20/25 08:06
Sodium 134 mmol/L (135-145) L 07/20/25 05:30
Potassium 3.7 mmol/L (3.5-5.1) 07/20/25 05:30
Chloride 103 mmol/L (98-107) 07/20/25 05:30
Carbon Dioxide 30 mmol/L (22-30) 07/20/25 05:30
BUN 60 mg/dl (9-20) H 07/20/25 05:30
Creatinine 2.0 mg/dL (0.7-1.3) H 07/20/25 05:30
eGFR 32.51 07/20/25 05:30
Glucose 91 mg/dl (70-99) 07/20/25 05:30
Calcium 7.5 mg/dl (8.4-10.2) L 07/20/25 05:30
Ekm-O-Ujdbkeodmyk Pept 7720 pg/ml 07/16/25 15:56
Albumin 2.0 g/dl (3.5-5.0) L 07/17/25 07:34
Physical Exam
-
Vital Signs:
Vital Signs
Temp Pulse Resp BP Pulse Ox
97.7 F 53 20 143/76 95
07/20/25 08:08 07/20/25 08:08 07/20/25 08:08 07/20/25 08:08 07/20/25 08:08
Cardiovascular:: Regular rate and rhythm
Respiratory:: Bilateral: Coarse
Lung Excursion:: Normal
Abdomen:: Nontender and Soft
Bowel Sounds:: Normal
Extremity Edema:: +3: Bilateral:
--- NOTE | 2025-07-20 13:06 | CM ---
Patient seen at bedside
cont diuresis
Referral [facility] in [facility]-accepted
PT rec HH
PLAN: MATHEUS with [facility] when stable
[facility] fax #: [phone]
--- NOTE | 2025-07-20 21:15 | W.PN.CARDCBS ---
Today's Communication / Plan
-
Diuretics per nephrology
PAF currently in sinus bradycardia. Medications adjusted.
Drop in hemoglobin without obvious bleeding. Monitor on IV heparin with plan to transition to NOAC if hemoglobin stable
Impression / Plan
-
PCP: Dr. Chung
Station Baggage Porter: Dr. Cinthya Nuñez
Impression:
Presented with SOB, weight gain, LE edema 07/16/2025
Acute hypervolemia due to hypoalbuminemia and nephrotic syndrome with biopsy-proven membranous nephropathy
Acute on chronic heart failure with preserved ejection fraction, proBNP 7720
CKD 3B
PAT with RVR and conversion pause 07/17/2025
4.2-second conversion pause seen on telemetry at 0512 on 07/17/2025
PACs
Moderate MR
PAD, abnormal L IVAN, mod to severe claudication
HTN
HLD
GERD
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
Pulmonary hypertension
Echo 04/10/2025: EF 63%, mild MR, trivial AR, mild to moderate TR, estimated PAP 48 to 51 mmHg, mild to moderate [place], trivial pericardial effusion
Plan:
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
-Volume status is improving with IV Bumex and metolazone
-Nephrology managing diuretics
-Monitor renal function closely; Creatinine stable at 2
PAT noted during ER visit with conversion pauses up to 4.2 seconds And paroxysmal atrial fibrillation currently in sinus rhythm
-IV Cardizem drip initiated 07/19/2025 for rapid atrial fibrillation and discontinued this morning. Cardizem CD 120 mg once daily initiated.
-Continue carvedilol 3.125 mg twice daily
-Stop amlodipine07/19/2025
-IV heparin drip Initiated 07/19/2025 and stopped this morning with hemoglobin dropped from 12.6-10.7 and platelets drop from 174 to 127
-Repeat CBC ordered with hemoglobin improved to 11.1 and platelets improved to 136.
-Spoke with primary and will restart heparin drip without bolus and monitor hemoglobin. If hemoglobin stable will transition to renally dosed NOAC tomorrow
There is a push for patient to be discharged in time for his outpatient RTX infusion on Monday.
[facility] 07/16/2025:
Patient came to the ER yesterday with weight gain and bloating and was admitted with recurrent volume overload in the setting of hypoalbuminemia and nephrotic syndrome, cardiology was consulted for rapid atrial arrhythmia. As you recall patient has
a history of biopsy-proven membranous nephropathy and is managed for nephrotic syndrome and hypoalbuminemia. He has had several admissions this year for IV diuresis and dry weight is 160 lbs, but weight on admission yesterday was 181 lbs. Patient
reports compliance with Bumex 3 mg a.m. and 2 mg p.m. daily. Patient denies any dietary indiscretion. Patient reports increased urine output with Bumex 3 mg IV BID since admission, but his biggest complaint remains abdominal distention and
bloating. Patient also had hernia repair last admission, this was a second hernia repair and they used YAYA repair that time. Patient denies any chest pain or orthopnea. Cardiology was consulted for rapid atrial arrhythmia seen on telemetry
overnight. Patient denies any palpitations and reports he had no idea that his heart was out of rhythm. Patient was started on Cardizem gtt and then had up to 4.2-second conversion pause which he states he was also unaware of and denies feeling
lightheaded or dizzy. He is now in SR on my review of telemetry.
Progress Note - Station Baggage Porter
Subjective
Date of Service: July 20, 2025
Patient seen examined sitting out of bed to chair in good spirits overall feeling better. Reports less edema and shortness of breath.
Objective
Labs:
07/20/25 08:06
07/20/25 05:30
Labs
Hgb 11.1 g/dL (13.0-18.0) L 07/20/25 08:06
Hct 34.0 % (39.0-52.0) L 07/20/25 08:06
Plt Count 136 10^3/uL (130-400) 07/20/25 08:06
APTT Cancelled 07/20/25 06:15
Sodium 134 mmol/L (135-145) L 07/20/25 05:30
Potassium 3.7 mmol/L (3.5-5.1) 07/20/25 05:30
BUN 60 mg/dl (9-20) H 07/20/25 05:30
Creatinine 2.0 mg/dL (0.7-1.3) H 07/20/25 05:30
Glucose 91 mg/dl (70-99) 07/20/25 05:30
Vital Signs and I&O:
Vital Signs
Temp Pulse Resp BP Pulse Ox
98.1 F 65 16 160/70 95
07/20/25 19:15 07/20/25 20:16 07/20/25 20:16 07/20/25 19:15 07/20/25 20:16
Vital Signs
Temp Pulse Resp BP Pulse Ox
98.1 F 65 16 160/70 95
07/20/25 19:15 07/20/25 20:16 07/20/25 20:16 07/20/25 19:15 07/20/25 20:16
Intake & Output
07/18/25 07/19/25 07/20/25 07/21/25
06:59 06:59 06:59 06:59
Intake Total 0 / 1920 1320 / 1320 1440 / 1440 720 / 720
Output Total 3000 / 3000 2100 / 2100 1800 / 1800 1325 / 1325
Balance -1080 / -1080 -780 / -780 -360 / -360 -605 / -605
Physical Exam
Physical Exam
GEN: No distress, awake, Ox3, sitting in chair
HEENT: supple, anicteric, mmm
LUNGS:Lungs clear to auscultation
CV: Regular, bradycardic. Positive S1-S2. No murmurs
ABD: soft, BS+, NT/ND
EXT:+1 bilateral LE edema
[2025-07-20] MEDS: ZOLOFT 25 MG PO (22:02)
[2025-07-21 03:04] VITALS: BP 139/69
[2025-07-21 06:00] VITALS: BMI 25.5
[2025-07-21] MEDS: SYMBICORT 80/4.5 MCG INHALER 2 PUFF INH (07:18)
[2025-07-21] MEDS: SPIRIVA RESPIMAT 2.5 MCG 2 PUFF INH (07:18)
[2025-07-21 07:37] VITALS: BP 149/66
[2025-07-21 07:54] LABS: Hematocrit 35.9 % (39.0-52.0); Hemoglobin 11.6 g/dL (13.0-18.0); Mean Corp Hgb Conc. 32.3 g/dL (33.0-37.0); Mean Corpuscular Volume 83.5 fL (80.0-94.0); Platelet Count 168 10^3/uL (130-400); Red Cell Dist. Width 15.0 % (11.5-14.5)
[2025-07-21 07:59] LABS: Blood Urea Nitrogen 55 mg/dl (9-20); Calcium 7.6 mg/dl (8.4-10.2); Carbon Dioxide 32 mmol/L (22-30); Chloride 102 mmol/L (98-107); Estimated Creatinine Clearance 27 ml/min; Glucose 93 mg/dl (70-99); Potassium 3.9 mmol/L (3.5-5.1); Sodium 133 mmol/L (135-145); eGFR 30.66
[2025-07-21] MEDS: COREG 3.125 MG PO (08:41)
[2025-07-21] MEDS: ZAROXOLYN 5 MG PO (08:41)
[2025-07-21] MEDS: FARXIGA 10 MG PO (08:41)
[2025-07-21] MEDS: APRESOLINE 37.5 MG PO (08:41)
[2025-07-21] MEDS: PROTONIX 40 MG PO (08:42)
[2025-07-21] MEDS: REFRESH EYE DROPS (PF) 1 DROPS BOTH EYES (08:42)
[2025-07-21] MEDS: ASPIR LOW (ENTERIC COATED) 81 MG PO (08:42)
[2025-07-21] MEDS: BUMEX 3 MG IV (08:42)
[2025-07-21] MEDS: FLUSH (NSS) 2 FLUSH IV (08:45)
[2025-07-21] MEDS: CARDIZEM CD 120 MG PO (08:48)
[2025-07-21 11:20] VITALS: BP 154/67
--- NOTE | 2025-07-21 12:34 | W.PN.NEPH.PH ---
Today's Communication / Plan
-
Bumex and Zaroxolyn continue
Assessment/Plan
-
Impression:
Acute on chronic HFpEF
Acute volume overload in setting of hypoalbuminemia and nephrotic syndrome (membranous nephropathy)
CKD stage 3b (baseline Cr 1.7 to 1.9)
New onset A. Fib
Upper chest/abdominal pain
Hypertensive urgency
Essential HTN
Hypocalcemia-correct Ca is >9
Hyperlipidemia
Dementia, unknown subtype
Transabdominal peritoneal repair of left inguinal hernia with mesh
Anxiety/depression
GERD
BPH
Bilateral renal masses seen on dry CT
Anemia
COPD/ILD
History of pulmonary hypertension
History of moderate MR
PAD with moderate to severe claudication
Plan:
follow BMP
continue bumex IV
increase metolazone 5mg BID=07/20
goal around 72 kg which is where he was when he was discharged on 06/30
CT noted Few scattered subcentimeter slightly high attenuation renal lesions which cannot be further characterized on this study without intravenous contrast, most likely hyperdense cyst, cannot exclude solid masses-need out pt f/u
He is scheduled for rituximab outpatient tomorrow but that will have to be postponed
-
-
Date of Service: July 21, 2025
CC / HPI / ROS
-
Chief Complaint:
ROLANDA
History of Present Illness:
diuresing for decompensated HFpEF with IV lasix and metolazone, albeit slowly
BP stable
Cr relatively stable at 2.0
K normal
Na 134 stable
weights down
Review of Systems:
no CP/SOB
Labs
-
Labs:
WBC 8.3 10^3/uL (4.8-10.8) 07/21/25 07:14
RBC 4.30 10^6/uL (4.70-6.10) L 07/21/25 07:14
Hgb 11.6 g/dL (13.0-18.0) L 07/21/25 07:14
Hct 35.9 % (39.0-52.0) L 07/21/25 07:14
Plt Count 168 10^3/uL (130-400) D 07/21/25 07:14
Sodium 133 mmol/L (135-145) L 07/21/25 07:14
Potassium 3.9 mmol/L (3.5-5.1) 07/21/25 07:14
Chloride 102 mmol/L (98-107) 07/21/25 07:14
Carbon Dioxide 32 mmol/L (22-30) H 07/21/25 07:14
BUN 55 mg/dl (9-20) H 07/21/25 07:14
Creatinine 2.1 mg/dL (0.7-1.3) H 07/21/25 07:14
eGFR 30.66 07/21/25 07:14
Glucose 93 mg/dl (70-99) 07/21/25 07:14
Calcium 7.6 mg/dl (8.4-10.2) L 07/21/25 07:14
Mqb-W-Knydfhrhuoi Pept 7720 pg/ml 07/16/25 15:56
Albumin 2.0 g/dl (3.5-5.0) L 07/17/25 07:34
Physical Exam
-
Vital Signs:
Vital Signs
Temp Pulse Resp BP Pulse Ox
97.5 F 54 22 154/67 96
07/21/25 11:20 07/21/25 11:20 07/21/25 11:20 07/21/25 11:20 07/21/25 11:20
Cardiovascular:: Regular rate and rhythm
Respiratory:: Bilateral: Coarse
Lung Excursion:: Normal
Abdomen:: Nontender and Soft
Bowel Sounds:: Normal
Extremity Edema:: +3: Bilateral:
--- NOTE | 2025-07-21 13:21 | W.PN.UPDATE ---
Update Note
Progress Note Update
After further discussions and no further workup, patient is okay for discharge from renal standpoint with 80 mg p.o. lasix twice daily and metolazone 5 mg Monday with outpatient rituximab infusion scheduled for tomorrow. Discussed
this with primary hospitalist and patient's son Christiano
--- NOTE | 2025-07-21 13:43 | W.PN.CARDCBS ---
Addendum entered and electronically signed by Kae Benitez DO 07/21/25 17:38:
I saw and examined the patient.
The Repair Service Clerk's note was reviewed and I agree with the note.
Comment: Patient was seen and examined. Plan for discharge today with family. No chest pain or pressure. Improved shortness of breath and edema.
GEN: No distress, awake, Ox3, sitting in chair
HEENT: supple, anicteric, mmm
LUNGS:Lungs clear to auscultation
CV: Regular, bradycardic. Positive S1-S2. No murmurs
ABD: soft, BS+, NT/ND
EXT:+1 bilateral LE edema
Plan:
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
- Improved volume status following IV diuresis
-Nephrology has been managing diuretics and have recommended Lasix 80 mg p.o. twice daily and metolazone 5 mg Monday
-Monitor renal function closely; Creatinine stable ~ 2
PAT noted during ER visit with conversion pauses up to 4.2 seconds And paroxysmal atrial fibrillation currently in sinus rhythm
- We will stop carvedilol.
-Continue Cardizem CD but increase dose to 180 mg once daily.
-Stop amlodipine07/19/2025-do not restart at time of discharge
- Initiated Eliquis 2.5 mg twice daily
- Monitor hemoglobin as an outpatient with renal function
Outpatient cardiac follow-up to be arranged
Stable for discharge as planned
Updated his son Christiano
Original Note:
Today's Communication / Plan
-
D/C to home with VN
Cardiology f/u arranged
Impression / Plan
-
PCP: Dr. Chung
Manager Transplant: Dr. Cinthya Nuñez
Impression:
Presented with SOB, weight gain, LE edema 07/16/2025
Acute hypervolemia due to hypoalbuminemia and nephrotic syndrome with biopsy-proven membranous nephropathy
Acute on chronic heart failure with preserved ejection fraction, proBNP 7720
CKD 3B
PAT with RVR and conversion pause 07/17/2025
4.2-second conversion pause seen on telemetry at 0512 on 07/17/2025
Paroxysmal A-fib on ECG 07/17/2025
PACs
Moderate MR
PAD, abnormal L IVAN, mod to severe claudication
HTN
HLD
GERD
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
Pulmonary hypertension
Echo 04/10/2025: EF 63%, mild MR, trivial AR, mild to moderate TR, estimated PAP 48 to 51 mmHg, mild to moderate AL, trivial pericardial effusion
Plan:
-Telemetry reviewed by me, patient is sinus bradycardia but still has runs of PAT. No pauses and no evidence of higher grade heart block
-Outpatient dose of Coreg 3.125 mg BID was stopped in favor of Cardizem CD.
-New to Cardizem CD this admission and will increase dose to 180 mg daily at time of discharge and rate control efforts. Outpatient dose of amlodipine was stopped
-New to Eliquis 2.5 mg BID (age 85, Cre 2.1), E scribed by me
-Paroxysmal A-fib is a new diagnosis this admission and was seen on ECG 07/17/2025
-Patient had a conversion pause of up to 4.2 seconds.
-Nephrology managed diuresis and plan is for Lasix 80 mg PO BID plus metolazone 5 mg MWF.
-Patient is scheduled for his first rituximab infusion 07/22/2025
-Outpatient dose of hydralazine 37.5 mg BID has been continued. BP this morning was 168/72 so could increase to 50 mg BID if needed.
-Outpatient dose of Farxiga 10 mg daily has been continued
- Cardiology follow-up arranged
HPI 07/16/2025:
Patient came to the ER yesterday with weight gain and bloating and was admitted with recurrent volume overload in the setting of hypoalbuminemia and nephrotic syndrome, cardiology was consulted for rapid atrial arrhythmia. As you recall patient has
a history of biopsy-proven membranous nephropathy and is managed for nephrotic syndrome and hypoalbuminemia. He has had several admissions this year for IV diuresis and dry weight is 160 lbs, but weight on admission yesterday was 181 lbs. Patient
reports compliance with Bumex 3 mg a.m. and 2 mg p.m. daily. Patient denies any dietary indiscretion. Patient reports increased urine output with Bumex 3 mg IV BID since admission, but his biggest complaint remains abdominal distention and
bloating. Patient also had hernia repair last admission, this was a second hernia repair and they used YAYA repair that time. Patient denies any chest pain or orthopnea. Cardiology was consulted for rapid atrial arrhythmia seen on telemetry
overnight. Patient denies any palpitations and reports he had no idea that his heart was out of rhythm. Patient was started on Cardizem gtt and then had up to 4.2-second conversion pause which he states he was also unaware of and denies feeling
lightheaded or dizzy. He is now in SR on my review of telemetry.
Progress Note - Manager Transplant
Subjective
Date of Service: July 21, 2025
He feels well, he wants to go home, his middle son is here to visit along with his
Objective
Labs:
07/21/25 07:14
07/21/25 07:14
Labs
Hgb 11.6 g/dL (13.0-18.0) L 07/21/25 07:14
Hct 35.9 % (39.0-52.0) L 07/21/25 07:14
Plt Count 168 10^3/uL (130-400) D 07/21/25 07:14
APTT Cancelled 07/20/25 06:15
Sodium 133 mmol/L (135-145) L 07/21/25 07:14
Potassium 3.9 mmol/L (3.5-5.1) 07/21/25 07:14
BUN 55 mg/dl (9-20) H 07/21/25 07:14
Creatinine 2.1 mg/dL (0.7-1.3) H 07/21/25 07:14
Glucose 93 mg/dl (70-99) 07/21/25 07:14
Vital Signs and I&O:
Vital Signs
Temp Pulse Resp BP Pulse Ox
97.5 F 54 22 154/67 96
07/21/25 11:20 07/21/25 11:20 07/21/25 11:20 07/21/25 11:20 07/21/25 11:20
Vital Signs
Temp Pulse Resp BP Pulse Ox
97.5 F 54 22 154/67 96
07/21/25 11:20 07/21/25 11:20 07/21/25 11:20 07/21/25 11:20 07/21/25 11:20
Intake & Output
07/19/25 07/20/25 07/21/25 07/22/25
06:59 06:59 06:59 06:59
Intake Total 1320 / 1320 1440 / 1440 1200 / 1200
Output Total 2100 / 2100 1800 / 1800 2500 / 2500
Balance -780 / -780 -360 / -360 -1300 / -1300
Physical Exam
Physical Exam
General: NAD. AAO x3
Heart: SR on tele. Reg, no murmurs
Lungs: RA. No wheeze
--- NOTE | 2025-07-21 14:56 | CM ---
MD indicated patient ready for discharge.
Spoke with patient in room He said he was ready for discharge.
He said Nena will drive him home.
IMM reviewed pt signed on chart.
As per [facility] accepted [facility]
Plan Home with [facility]
[2025-07-21 15:04] VITALS: BP 137/63
--- NOTE | 2025-07-21 15:51 | W.DCSUMMARY ---
Discharge Summary
Discharge Data
Date of Admission: 07/16/25
Date of Discharge: 07/21/25
Total time spent discharging patient (in min): 40
-
Pending Results: No
Hospital Course
Hospital course
patient was treated for Acute volume overload in setting of hypoalbuminemia and nephrotic syndrome (membranous nephropathy)
CKD stage 3b (baseline Cr 1.7 to 1.9)
- started IV Bumex; requires intensive monitoring of I/Os, weights, lytes
- Metolazone per Nephrology
Will be discharged on oral Lasix 80 mg twice daily and metolazone 5 mg Monday, Monday, Monday also patient noted to have new onset A. Fib
- s/p 1 dose IV Lopressor; then Cardizem drip but that was stopped due to conversion pauses; now on oral cardizem
- Echo 04/30: EF 63%, mildly enlarged RV, ZOHRA, mild MR, trivial AR, moderate TR, moderate CA
- IV Heparin then Eliquis on discharge
- Cards following, will be discharged on low-dose Eliquis, Cardizem, discontinue amlodipine and carvedilol
Blood pressure was elevated which eventually improved
Physical exam:
GENERAL : Patient is awake, alert, oriented x3
HEENT: Nonicteric sclerae, PERRLA, EOMI. Oropharynx clear. Moist mucous membranes. Conjunctivae appear well perfused.
CHEST: bilateral rales
HEART: Regular rate and rhythm without murmurs.
LUNGS: Clear to auscultation bilaterally.
ABDOMEN: Soft, positive bowel sounds, nontender, no organomegaly.
RECTAL: Deferred.
SKIN: No rash, no excessive bruising, petechiae, or purpura.
NEUROLOGIC: Cranial nerves II-XII intact without motor/sensory deficit.
Total time spent on today's encounter was 40 minutes which included time spent in counseling the patient/family regarding diagnosis and treatment plan as listed above, goals of care, and symptom management. Case was discussed with nursing staff,
specialists, and care coordinators/case management. All labs and imaging personally reviewed by me. Remainder the time spent in detailed review of previous records, lab data, imaging, and other medical provider documentation.
Anticipated Discharge: Today
Discharge Plan
-
Patient Disposition: Home with Home Care
Discharge Diagnosis/Procedures: Acute volume overload in setting of hypoalbuminemia and nephrotic syndrome (membranous nephropathy).
New onset A. Fib
Diet: Low Cholesterol and Low Sodium
Activity: As tolerated
Other Services: PT and OT
Specialty Instructions: Weigh Daily- Call MD for wt gain/loss 3 lbs overnight/5 lbs in 1 week
Referrals:
Daniel Lechuga DO [Active, Nephrology] - 07/23/25 9:30 am
Cinthya Nuñez MD [Active, Cardiology] - 08/27/25 2:40 pm
Referral Note: You have an appointment to see Dr. Nuñez's physician research assistant professor, Carli, at the [facility] on 08/27/2025 at 2:40 PM. Please call [phone] if you need to reschedule
UNKNOWN - PT DOES,NOT KNOW [Family Provider]
Additional Discharge Medication Instructions: - STOP taking aspirin 81 mg daily, it has been replaced with Eliquis 2.5 mg twice daily to help prevent blood clots associated with irregular heart rhythm (paroxysmal atrial fibrillation)
- STOP taking your usual dose of Coreg (carvedilol) 3.125 mg twice daily, it has been replaced with Cardizem CD (diltiazem) 180 mg once a day
- STOP taking amlodipine (Norvasc) it has been replaced with Cardizem
Prescriptions:
New
Eliquis 2.5 mg tablet
2.5 mg PO BID Qty: 60 11RF
metolazone 5 mg Tablet
5 mg PO .mwf Qty: 30 0RF
Rx Instructions:
Take 1 tablet Monday, Monday, Monday
furosemide [Lasix] 80 mg tablet
80 mg PO BID Qty: 60 0RF
diltiazem HCl [Cardizem CD] 180 mg capsule,extended release 24hr
180 mg PO DAILY Qty: 30 11RF
Continued
sertraline 25 mg Tablet
25 mg PO HS
Refresh Optive 0.5-0.9 % Drops
1 drp BOTH EYES TID
dapagliflozin propanediol 10 mg Tablet
10 mg PO DAILY Qty: 30 0RF
pantoprazole 40 mg Tablet,Delayed Release (Dr/Ec)
40 mg PO DAILY Qty: 30 0RF
hydralazine 25 mg tablet
37.5 mg PO BID Qty: 0 0RF
acetaminophen [Tylenol] 325 mg Tablet
650 mg PO Q6HPRN PRN (Reason: mild pain)
Discontinued
amlodipine [Norvasc] 5 mg Tablet
5 mg PO DAILY
aspirin 81 mg Tablet
81 mg PO DAILY
carvedilol 3.125 mg Tablet
3.125 mg PO BID Qty: 60 0RF
bumetanide [Bumex] 2 mg Tablet
3 mg PO DAILY
bumetanide 2 mg tablet
2 mg PO QPM
Discharge Orders:
Discharge Patient (As Directed); Ordered 07/21/25
Ordered By: Swapna Saavedra
Discharge Date and Time
Print Language: MONGOLIAN
== END 2025-07-21 17:10 | disposition home health service (06) | DRG 291 ==
LOC: 3 WEST ACU 19:22
PROVIDERS: Internal Medicine; Internal Medicine Cardiovascular Disease; Nurse Practitioner; Nurse Practitioner Family; Physician Assistant Medical; ADMITTING PHYSICIAN Hospitalist; ATTENDING PHYSICIAN General Practice; CONSULT PHYSICIAN Internal Medicine; EMERGENCY PHYSICIAN Emergency Medicine; OTHER PHYSICIAN Nuclear Medicine Nuclear Cardiology
DX: I13.0 Hypertensive heart and chronic kidney disease with heart failure and stage 1 through stage 4 chronic kidney disease, or unspecified chronic kidney disease (principal); I50.33 Acute on chronic diastolic (congestive) heart failure; F03.94 Unspecified dementia, unspecified severity, with anxiety; F03.93 Unspecified dementia, unspecified severity, with mood disturbance; J84.9 Interstitial pulmonary disease, unspecified; R71.0 Precipitous drop in hematocrit; N18.32 Chronic kidney disease, stage 3b; E78.5 Hyperlipidemia, unspecified; E88.09 Other disorders of plasma-protein metabolism, not elsewhere classified; I16.0 Hypertensive urgency; I48.0 Paroxysmal atrial fibrillation; E83.51 Hypocalcemia; F32.A Depression, unspecified; I27.20 Pulmonary hypertension, unspecified; I73.9 Peripheral vascular disease, unspecified; J44.9 Chronic obstructive pulmonary disease, unspecified; D64.9 Anemia, unspecified; I34.0 Nonrheumatic mitral (valve) insufficiency; K21.9 Gastro-esophageal reflux disease without esophagitis; N40.0 Benign prostatic hyperplasia without lower urinary tract symptoms; Z79.51 Long term (current) use of inhaled steroids; Z79.82 Long term (current) use of aspirin; Z79.84 Long term (current) use of oral hypoglycemic drugs; Z99.81 Dependence on supplemental oxygen; Z87.891 Personal history of nicotine dependence; Z87.441 Personal history of nephrotic syndrome
CPT/HCPCS: 70450; 71046; 74176; 78582; 80048; 80053; 82607; 82728; 82746; 83540; 83550; 83735; 83880; 84443; 84484; 85025; 85027; 85730; 93005; 94640; 96374; 97116; 97162; 97167; 97530; 99285; A9540; A9567

== ENCOUNTER 2025-08-05 09:35 | Outpatient (RCR) | payer MEDICARE, SELFPAY ==
[2025-07-22] VITALS (10 sets, daily range): BP systolic 130–172; BP diastolic 50–69
[2025-07-22] MEDS: RUXIENCE 250 MG IV (10:39)
[2025-07-22] MEDS: BENADRYL 25 MG PO (10:39)
[2025-07-22] MEDS: TYLENOL 650 MG PO (10:39)
[2025-08-05] VITALS (11 sets, daily range): BP systolic 141–173; BP diastolic 53–82
[2025-08-05] MEDS: TYLENOL 650 MG PO (09:58)
[2025-08-05] MEDS: RUXIENCE 250 MG IV (09:58)
[2025-08-05] MEDS: BENADRYL 25 MG PO (09:58)
== END 2025-08-05 23:59 | disposition home or self-care (01) ==
LOC: OID 09:35
PROVIDERS: ATTENDING PHYSICIAN Specialist; FAMILY PHYSICIAN Family Medicine
DX: D40.9 Neoplasm of uncertain behavior of male genital organ, unspecified (principal); N04.9 Nephrotic syndrome with unspecified morphologic changes (principal); N18.31 Chronic kidney disease, stage 3a; I73.9 Peripheral vascular disease, unspecified; I10 Essential (primary) hypertension; I13.0 Hypertensive heart and chronic kidney disease with heart failure and stage 1 through stage 4 chronic kidney disease, or unspecified chronic kidney disease; Z79.01 Long term (current) use of anticoagulants
CPT/HCPCS: 96413; 96415; Q5119